=== PATIENT | female | born 1945 | race Caucasian/White ===

== ENCOUNTER → 2020-12-17 14:27 | Outpatient (BNVA) | payer MEDICARE, OTHER, SELFPAY | PROVIDERS: PCP Internal Medicine; Visit Provider Internal Medicine Cardiovascular Disease | DX: I42.2 Other hypertrophic cardiomyopathy (principal); I48.0 Paroxysmal atrial fibrillation; I25.10 Atherosclerotic heart disease of native coronary artery without angina pectoris; I35.0 Nonrheumatic aortic (valve) stenosis; I50.30 Unspecified diastolic (congestive) heart failure; Z95.0 Presence of cardiac pacemaker | CPT/HCPCS: 93005; 99212 ==

== ENCOUNTER → 2021-06-20 14:55 | Outpatient (BNVA) | payer MEDICARE, OTHER, SELFPAY | PROVIDERS: PCP Internal Medicine; Visit Provider Internal Medicine Cardiovascular Disease | DX: I50.30 Unspecified diastolic (congestive) heart failure (principal); I48.0 Paroxysmal atrial fibrillation; I35.0 Nonrheumatic aortic (valve) stenosis; I25.10 Atherosclerotic heart disease of native coronary artery without angina pectoris; R60.0 Localized edema; R06.02 Shortness of breath; R53.83 Other fatigue; Z98.890 Other specified postprocedural states; Z95.0 Presence of cardiac pacemaker; J30.2 Other seasonal allergic rhinitis; Z91.040 Latex allergy status; Z79.899 Other long term (current) drug therapy | CPT/HCPCS: 93005; 99212 ==

== ENCOUNTER 2021-06-20 15:55 | Inpatient (IN) | payer MEDICARE, OTHER, SELFPAY ==
--- NOTE | ~2021-06-20 | XR_ITS ---
EXAMINATION: XR CHEST CLINICAL INFORMATION: Shortness of breath COMPARISON: 05/31/2020 TECHNIQUE: 2 views of the chest were obtained. FINDINGS: There is small effusions now present bilaterally right greater than left. Mild basilar atelectasis. No large area of infiltrate. Pacer wires appear unchanged in position. There is no failure on this study Enlarged cardiac silhouette similar to previous. XR/XR chest 2V IMPRESSION: Small bilateral effusions with mild adjacent atelectasis. No large area of infiltrate. No failure at this time
[2021-06-20 16:16] VITALS: BP 136/76; PULSE 77; RESP 16; TEMP 36.8; O2SAT 95; BMI 33.4
--- NOTE | 2021-06-20 16:54 | ECG_ITS ---
Test Reason : SHORTNESS OF BREATH Blood Pressure : / mmHG Vent. Rate : 075 BPM Atrial Rate : 075 BPM P-R Int : 170 ms QRS Dur : 218 ms QT Int : 562 ms P-R-T Axes : 000 152 108 degrees QTc Int : 627 ms AV dual-paced rhythm Abnormal ECG When compared with ECG of 13-JUL-2019 15:00, No significant changes seen Referred By: David Loredo Electronically Signed By:CORONA HERRERA
--- NOTE | 2021-06-20 17:02 | ED_ITS ---
HPI - SOB/Dyspnea General Chief Complaint: Dyspnea Stated Complaint: FLUIDS Time Seen by Provider: 06/20/21 16:22 Source: patient and other (Expect note from Dr. Stuart) Mode of arrival: ambulatory Limitations: no limitations History of Present Illness HPI Narrative: 75-year-old female who was sent to the emergency department by her bandoleer straightener stamper, Dr. Stuart for evaluation fluid overload with severe peripheral edema and possible CHF the patient has a history of hypertrophic cardiomyopathy who saw her bandoleer straightener stamper today for routine visit. The patient complains of worsening shortness of breath over several months, getting worse over the past week. She has noticed increased peripheral edema to the point where her legs are large and she is having difficulty walking secondary to her swollen legs and the pain in her knees. She denied chest pain. She denied fever, chills, nausea, vomiting, abdominal pain. Patient has been drinking 316 oz glasses of water per day. The patient has been vaccinated against COVID-19 and received her 2nd shot in December of 2020. Related Data Home Medications Medication Instructions Recorded Confirmed albuterol sulfate 90 mcg/actuation 2 puff PO Q4H PRN 12/17/20 06/20/21 aerosol inhaler furosemide 40 mg tablet 40 mg PO DAILY 12/17/20 06/20/21 montelukast 10 mg tablet 10 mg PO DAILY 12/17/20 06/20/21 rivaroxaban 20 mg tablet 20 mg PO DAILY 12/17/20 06/20/21 Previous Rx's Medication Instructions Recorded amiodarone 200 mg tablet 200 mg PO DAILY #90 tab 01/31/21 verapamil 80 mg tablet 160 mg PO BID #360 tab 03/25/21 Allergies Allergy/AdvReac Type Severity Reaction Status Date / Time latex [LATEX] Allergy Unknown UNKNOWN Unverified 07/26/20 16:41 N.K.D.A. Allergy Unknown Uncoded 05/31/20 00:00 seasonal Allergy Unknown Uncoded 05/31/20 00:00 Review of Systems Review of Systems: Yes all other systems are reviewed and are negative [facility] Past Medical History [facility] Narrative: Social history: The patient states that she is a former smoker and quit 20 years prior. She smoked for at least 40 years. She states she drinks alcohol once or twice a week. She denies drug use. Medical History (HFpEF) heart failure with preserved ejection fraction Aortic stenosis CAD (coronary artery disease) Cardiac pacemaker in situ Hypertrophic cardiomyopathy Obesity Paroxysmal atrial fibrillation Pulmonary hypertension Surgical History History of cardiac radiofrequency ablation History of cardioversion History of permanent cardiac pacemaker placement Hx of elbow surgery Family History Family History Father No problems noted. Mother CVD (cardiovascular disease) Social History Social History Household Members: Children Household Members Other:: lives with son Housing: House Do you presently have visiting nurse or other home services: No Patient Tobacco Use Status: Former Tobacco user Smoked in Last 30 Days: No Patient Interested in Nicotine Replacement: No Patient Given Instructions on How to Stop Smoking: No Second Hand Smoke Exposure: No Use of substances other than those prescribed or required for medical reasons: No Currently Displaying Signs/Symptoms of Drug Intoxication Withdrawal: No Any prior treatment program specific to substance use: No Have you been hit, kicked, punched, or otherwise hurt by someone within the past year? If so, by whom?: No Do you feel safe in your current relationship?: No Current Relationship Is there a partner from a previous relationship who is making you feel unsafe now?: No Are you made to feel afraid or neglected: No Advance Directives: No Advance Directives Information Provided: No Advance Directives on File: No Do you have thoughts of harming others: None Do you have a plan to hurt others: No Plan Recently lost weight without trying: No Eating poorly because of decreased appetite: No Nutrition Risks: No Nutritional Risk Patient : No : No Poor oral hygiene: No service: No Current occupational status: employed Physical Exam Vital Signs: Vital Signs: Last Vital Signs Temp 98.3 F 06/21/21 00:00 Pulse 88 06/21/21 00:00 Resp 16 06/21/21 00:00 BP 139/74 06/21/21 00:00 Pulse Ox 94 06/21/21 00:00 Body Mass Index 33.4 Const: Other: Very pleasant and cooperative female, does not appear to be in distress, answers all questions appropriately. HENMT: Head: Yes normal to inspection, Yes normocephalic and Yes atraumatic Ears: external ears normal General nose exam: Normal external nose present Face and sinus: Yes normal facial exam Mouth: Normal oral and palatal mucosa present Throat: Yes posterior oropharynx normal Eyes: General: appearance normal, both eyes and all related structures Pupils: Equal, round and reactive pupils present Neck: Neck: Yes normal visual inspection, Yes no lymphadenopathy, Yes trachea midline and Yes supple Chest: Chest palpation & inspection: normal inspection of the chest and normal palpation of entire chest wall Resp: Effort & Inspection: normal respiratory effort and able to speak in complete sentences Auscultation: rales bilateral at the base Cardio: Rate: regular rate Rhythm: regular rhythm Heart sounds: S1 normal heart sound present, S2 normal heart sound present and Murmur heart sound present (Two murmurs noted: Both holosystolic, 2/6 right sternal border, 3/6 left s) GI: Inspection: Yes normal to inspection Palpation (GI): Soft to palpation, nontender and no guarding Auscultation: normal bowel sounds : General: Yes no CVA tenderness Back/Spine/Pelvis: Back: no CVA tenderness Skin: General skin exam: no rashes or lesions noted Neuro: Cranial nerves: Yes CN's II-XII intact bilaterally and Yes Equal, round and reactive pupils present Cognition (Neuro): normal cognition Motor exam (neuro): 5/5 motor strength present throughout Extrem: Other: Both legs are markedly edematous approximately 2-3 times normal, 2+ pitting edema, bilaterally symmetric, slight erythema to both pretibial areas, no increased warmth Psych: Appearance: grossly normal Speech and movement: Normal speech and movement present Affect: normal affect Attitude: cooperative Thought process: Normal thought process present Thought content: Normal thought content present Course Course Course Narrative: 75-year-old female with history of hypertrophic cardiomyopathy who had a routine cardiology appointment today and was referred to the emergency department by her bandoleer straightener stamper for fluid overload and possible CHF. Physical examination revealed 2 separate cardiac murmurs 1 consistent with her hypertrophic cardiomyopathy, rales at the bases on her lung exam and markedly swollen lower extremities with 2+ pitting edema. I did order laboratory evaluation, chest x-ray an EKG. Patient was ordered to get Lasix (furosemide) 60 mg IV. MDM - SOB/Dyspnea Lab Data Result diagrams: 06/20/21 17:14 06/20/21 17:14 Labs: Lab Results 06/20/21 06/20/21 06/20/21 Range/Units 17:14 17:14 17:14 WBC 6.7 (4.8-10.8) X10*3/uL RBC 4.00 L (4.20-5.50) X10*6/uL Hgb 10.3 L (12.0-16.0) g/dl Hct 34.4 L (37-47) % MCV 86.0 (80-98) fL MCH 25.8 L (27.0-33.0) pg MCHC 29.9 L (31.0-35.0) g/dl RDW 16.7 H (11.0-16.0) % Plt Count 289 (160-400) X10*3/uL MPV 9.1 L (9.4-12.3) fL Immature Gran % (Auto) 0.3 (0.0-0.4) % Neut % (Auto) 83.7 H (45-73) % Lymph % (Auto) 7.0 L (20-40) % [place] % (Auto) 8.3 (2-11) % Eos % (Auto) 0.1 (0-4) % Baso % (Auto) 0.6 (0-2) % Lymph # (Auto) 0.5 L (1.2-4.9) X10*3/uL [place] # (Auto) 0.6 (0.1-1.2) X10*3/uL Eos # (Auto) 0.0 (0.0-0.4) X10*3/uL Baso # (Auto) 0.0 (0.0-0.2) X10*3/uL Abs Immat Gran (auto) 0.02 (0.00-0.03) X10*3/uL Absolute Neuts (auto) 5.6 (2.0-8.3) X10*3/uL Absolute Nucleated RBC 0.000 (0.0-0.012) X10*3/uL Nucleated RBC % (auto) 0.0 (0.0-0.2) /100WBC PT 20.3 H (9.9-13.0) SEC INR 1.8 H (0.9-1.1) APTT 41.4 H (24.1-38.0) SEC Sodium (135-145) mmol/L Potassium (3.3-5.1) mmol/L Chloride (96-108) mmol/L Carbon Dioxide (22-29) mmol/L Anion Gap (12-20) BUN (9-16) mg/dL Creatinine (0.5-1.4) mg/dL Estim Creat Clear Calc Estimated GFR Random Glucose (60-115) mg/dL Calcium (8.4-10.2) mg/dL Total Bilirubin (0.0-1.0) mg/dL AST (5-31) U/L ALT (0-31) U/L Alkaline Phosphatase (39-117) U/L Troponin I High Sens (<3.5-17.0) ng/L B-Natriuretic Peptide 877 H (<100) pg/mL Total Protein (6.5-8.0) g/dL Albumin (3.5-5.0) g/dL Lipase (8-78) U/L Coronavirus (PCR) (Negative) Influenza Type A (PCR) (Negative) Influenza Type B (PCR) (Negative) RSV RNA Qual (PCR) (Negative) 06/20/21 06/20/21 06/20/21 Range/Units 17:14 17:14 17:14 WBC (4.8-10.8) X10*3/uL RBC (4.20-5.50) X10*6/uL Hgb (12.0-16.0) g/dl Hct (37-47) % MCV (80-98) fL MCH (27.0-33.0) pg MCHC (31.0-35.0) g/dl RDW (11.0-16.0) % Plt Count (160-400) X10*3/uL MPV (9.4-12.3) fL Immature Gran % (Auto) (0.0-0.4) % Neut % (Auto) (45-73) % Lymph % (Auto) (20-40) % [place] % (Auto) (2-11) % Eos % (Auto) (0-4) % Baso % (Auto) (0-2) % Lymph # (Auto) (1.2-4.9) X10*3/uL [place] # (Auto) (0.1-1.2) X10*3/uL Eos # (Auto) (0.0-0.4) X10*3/uL Baso # (Auto) (0.0-0.2) X10*3/uL Abs Immat Gran (auto) (0.00-0.03) X10*3/uL Absolute Neuts (auto) (2.0-8.3) X10*3/uL Absolute Nucleated RBC (0.0-0.012) X10*3/uL Nucleated RBC % (auto) (0.0-0.2) /100WBC PT (9.9-13.0) SEC INR (0.9-1.1) APTT (24.1-38.0) SEC Sodium 140 (135-145) mmol/L Potassium 4.5 (3.3-5.1) mmol/L Chloride 108 (96-108) mmol/L Carbon Dioxide 20 L (22-29) mmol/L Anion Gap 17 (12-20) BUN 11 (9-16) mg/dL Creatinine 0.95 (0.5-1.4) mg/dL Estim Creat Clear Calc 63.2 Estimated GFR 57 Random Glucose 100 (60-115) mg/dL Calcium 8.8 (8.4-10.2) mg/dL Total Bilirubin 1.6 H (0.0-1.0) mg/dL AST 14 (5-31) U/L ALT 10 (0-31) U/L Alkaline Phosphatase 149 H (39-117) U/L Troponin I High Sens 11.7 (<3.5-17.0) ng/L B-Natriuretic Peptide (<100) pg/mL Total Protein 6.9 (6.5-8.0) g/dL Albumin 3.9 (3.5-5.0) g/dL Lipase 15 (8-78) U/L Coronavirus (PCR) NEGATIVE (Negative) Influenza Type A (PCR) NEGATIVE (Negative) Influenza Type B (PCR) NEGATIVE (Negative) RSV RNA Qual (PCR) NEGATIVE (Negative) Discharge Plan Discharge Clinical Impression: Congestive heart failure, Edema, peripheral Patient Disposition: Admitted As Inpatient Interventions: Admission Worksheet (ED) Last Done: 06/21/21 00:31
[2021-06-20 17:16] VITALS: BP 132/75; PULSE 71; RESP 16; O2SAT 94
[2021-06-20] MEDS: Furosemide 100 MG/10 ML VIAL 60 MG IVPUSH (17:22)
[2021-06-20 17:23] LABS: MANUAL DIFF FLAG NO
[2021-06-20 17:29] LABS: Basophils Percent Auto 0.6 % (0-2); Eosinophils Percent Auto 0.1 % (0-4); Hematocrit 34.4 % (37-47); Hemoglobin 10.3 g/dl (12.0-16.0); Imm Gran Abs Auto 0.02 X10*3/uL (0.00-0.03); Imm Gran Pct Auto 0.3 % (0.0-0.4); Lymphocytes Absolute Auto 0.5 X10*3/uL (1.2-4.9); Mean Corpuscular HGB Conc 29.9 g/dl (31.0-35.0); Mean Corpuscular Hemoglobin 25.8 pg (27.0-33.0); Mean Platelet Volume 9.1 fL (9.4-12.3); Monocytes Absolute Auto 0.6 X10*3/uL (0.1-1.2); Monocytes Percent Auto 8.3 % (2-11); Neutrophils Absolute Auto 5.6 X10*3/uL (2.0-8.3); Neutrophils Percent Auto 83.7 % (45-73); Platelet Count 289 X10*3/uL (160-400); Red Cell Distribution Width 16.7 % (11.0-16.0); White Blood Count 6.7 X10*3/uL (4.8-10.8)
[2021-06-20 17:31] LABS: INTERNATIONAL NORM RATIO 1.8 (0.9-1.1); Prothrombin Time 20.3 SEC (9.9-13.0)
[2021-06-20 17:33] LABS: Partial Thromboplastin Time 41.4 SEC (24.1-38.0)
[2021-06-20 17:51] LABS: B Type Natriuretic Peptide 877 pg/mL (<100)
[2021-06-20 17:52] LABS: Troponin-I High Sensitivity 11.7 ng/L (<3.5-17.0)
[2021-06-20 18:07] LABS: Alanine Aminotransferase 10 U/L (0-31); Albumin Level 3.9 g/dL (3.5-5.0); Alkaline Phosphatase 149 U/L (39-117); Anion Gap 17 (12-20); Aspartate Amino Transferase 14 U/L (5-31); Bilirubin Total 1.6 mg/dL (0.0-1.0); Blood Urea Nitrogen 11 mg/dL (9-16); Calcium 8.8 mg/dL (8.4-10.2); Carbon Dioxide 20 mmol/L (22-29); Chloride 108 mmol/L (96-108); Creatinine Clr Calc Pharmacy 63.2; Estimated Glomerular Filt Rate 57; Glucose Random 100 mg/dL (60-115); Lipase 15 U/L (8-78); Potassium 4.5 mmol/L (3.3-5.1); Sodium 140 mmol/L (135-145); Total Protein 6.9 g/dL (6.5-8.0)
[2021-06-20 18:13] LABS: Influenza A PCR NEGATIVE (Negative); Influenza B PCR NEGATIVE (Negative); Resp Syncy Virus RNA Qual PCR NEGATIVE (Negative); SARS COV2 PCR INHOUSE NEGATIVE (Negative)
[2021-06-20 18:48] VITALS: BP 123/59; PULSE 75; RESP 16; O2SAT 98
[2021-06-20 21:23] VITALS: BP 136/69; PULSE 71; RESP 22; TEMP 36.9; O2SAT 94
--- NOTE | 2021-06-20 21:27 | MHC.CM.PN ---
Addendum entered by Meg Gilliam 06/20/21 21:33: Pt is fully vaccinated with Pfizer. Original Note: CM met with admitted pt, with bed assignment pending. IMM reviewed and signed 06/20/21@2110. Pt is A&Ox3. Independent. 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 Pt lives with her son. Has a cane and a scooter. Pt does not have any services. HCP/son Michael Schulz ([phone]). HCP is not on file. Copy requested. D/C plan is home without services. Pt is agreeable to [facility] if needed. Transportation home by son. CM to follow for d/c needs.
--- NOTE | 2021-06-20 21:41 | PHA.MEDREC ---
Pharmacy Consult ? Medication Reconciliation Pharmacy has completed the medication reconciliation. PT reports taking her AM meds only on 06/20.
[2021-06-20 23:21] VITALS: BP 144/85; PULSE 84; RESP 26; O2SAT 94
--- NOTE | 2021-06-20 23:22 | PC.NURSE ---
PUREWICK REPLACED, LINEN CHANGED AND PT WASHED UP. SKIN INTACT.
[2021-06-21] VITALS (7 sets, daily range): BP systolic 123–169; BP diastolic 72–90; PULSE 72–88; RESP 16–20; TEMP 36.1–36.8; O2SAT 94–96; BMI 31.1
[2021-06-21] MEDS: 0.9 % Sodium Chloride Flush 3 ML SYRINGE IVFLUSH ×3 (01:03→17:19)
--- NOTE | 2021-06-21 06:40 | P.HPHOSP_ITS ---
History of Present Illness Date of Service: 06/20/21 Chief Complaint: Leg swelling This is a 75-year-old female with past medical history of CHF with preserved ejection fraction, aortic stenosis, hypertrophic cardiomyopathy, CAD, AFib, pulmonary hypertension, who presents to the hospital after being seen by her c ardiologist and sent for CHF exacerbation. Patient reports that she has had lower extremity swelling since December but have worsened in the past 1 week where she is now having even trouble walking due to the heaviness in her legs, reports dyspnea for the past few days, orthopnea, PND, no cough, no sputum production, no fever or chills. Denies any chest pain, on and off palpitations but nothing currently, denies any headache or blurry vision, no abdominal pain nausea or vomiting, no diarrhea constipation, no urinary symptoms and no numbness tingling. On arrival to the ED hemodynamically stable with no significant abnormal vitals Labs are significant for WBC count of 6.7, hemoglobin of 10.3 which did drop from 13 on 05/31, MCV of 86, PT of 20.3, INR of 1.8, PTT of 41.4, COVID-19 negative, BNP of 877, troponin of 11 which remained flat EKG shows AV dual paced rhythm, with mild atelectasis. No infiltrate Patient will be admitted for CHF exacerbation and management Review of Systems Review of Systems: Yes all other systems are reviewed and are negative [facility] Medical History (HFpEF) heart failure with preserved ejection fraction Aortic stenosis CAD (coronary artery disease) Cardiac pacemaker in situ Hypertrophic cardiomyopathy Obesity Paroxysmal atrial fibrillation Pulmonary hypertension Family History Father No problems noted. Mother CVD (cardiovascular disease) Surgical History History of cardiac radiofrequency ablation History of cardioversion History of permanent cardiac pacemaker placement Hx of elbow surgery Social History Household Members: Children Household Members Other:: lives with son Housing: House Do you presently have visiting nurse or other home services: No Patient Tobacco Use Status: Former Tobacco user Smoked in Last 30 Days: No Patient Interested in Nicotine Replacement: No Patient Given Instructions on How to Stop Smoking: No Second Hand Smoke Exposure: No Use of substances other than those prescribed or required for medical reasons: No Currently Displaying Signs/Symptoms of Drug Intoxication Withdrawal: No Any prior treatment program specific to substance use: No Have you been hit, kicked, punched, or otherwise hurt by someone within the past year? If so, by whom?: No Do you feel safe in your current relationship?: No Current Relationship Is there a partner from a previous relationship who is making you feel unsafe now?: No Are you made to feel afraid or neglected: No Advance Directives: No Advance Directives Information Provided: No Advance Directives on File: No Do you have thoughts of harming others: None Do you have a plan to hurt others: No Plan Recently lost weight without trying: No Eating poorly because of decreased appetite: No Nutrition Risks: No Nutritional Risk Patient : No : No Poor oral hygiene: No service: No Current occupational status: employed Meds Allergies Allergy/AdvReac Type Severity Reaction Status Date / Time latex [LATEX] Allergy Unknown UNKNOWN Unverified 07/26/20 16:41 N.K.D.A. Allergy Unknown Uncoded 05/31/20 00:00 seasonal Allergy Unknown Uncoded 05/31/20 00:00 Active Medications: Current Medications Generic Name Dose Route Start Last Admin Trade Name Freq PRN Reason Stop Dose Admin Acetaminophen 650 mg 06/20/21 23:51 Acetaminophen 325 Mg Tablet PO Q6H PRN Pain, Mild (Pain Scale 1-3) Docusate Sodium 100 mg 06/20/21 23:51 Docusate Sodium 100 Mg Capsule PO DAILY PRN Constipation Furosemide 40 mg 06/21/21 09:00 Furosemide 40 Mg/4 Ml Vial IVPUSH BID@0900,1800 [facility] Protocol Ondansetron HCl 4 mg 06/20/21 23:51 Ondansetron Hcl 4 Mg/2 Ml Vial IVPUSH Q8H PRN Nausea and Vomiting Pharmacy Consult 1 each 06/20/21 21:02 Consult Rx Perform Med Rec MISCELLANE ONCE PRN Consult order Sodium Chloride 3 ml 06/21/21 00:00 06/21/21 01:03 0.9 % Sodium Chloride Flush 3 Ml Syringe IVFLUSH 3 ml QSHIFT [facility] Administration Home Medications Medication Instructions Recorded Confirmed Last Taken Type albuterol sulfate 90 mcg/actuation 2 puff PO Q4H PRN 12/17/20 06/20/21 Unknown History aerosol inhaler furosemide 40 mg tablet 40 mg PO DAILY 12/17/20 06/20/21 06/20/21 History montelukast 10 mg tablet 10 mg PO DAILY 12/17/20 06/20/21 06/20/21 History rivaroxaban 20 mg tablet 20 mg PO DAILY 12/17/20 06/20/21 06/20/21 History Physical Exam Vital Signs and Narrative: Vital Signs: Last Vital Signs Temp 97.9 F 06/21/21 03:12 Pulse 73 06/21/21 03:12 Resp 16 06/21/21 03:12 BP 131/72 06/21/21 03:12 Pulse Ox 95 06/21/21 03:12 Body Mass Index 31.1 Const: General: cooperative and no acute distress Orientation/consciousness: patient oriented x3 Eyes: General: appearance normal, both eyes and all related structures Resp: Effort & Inspection: normal respiratory effort and able to speak in complete sentences Auscultation: crackles Cardio: Rate: regular rate Rhythm: regular rhythm GI: Palpation (GI): Soft to palpation Auscultation: normal bowel sounds Skin: General skin exam: no rashes or lesions noted Neuro: General: patient oriented x3 Cognition (Neuro): normal cognition Extrem: Other: 3+ pitting edema bilaterally General: Yes normal to inspection Results Labs CBC and Chem 7: 06/20/21 17:14 06/20/21 17:14 Labs: Laboratory Results - last 24 hr 06/20/21 06/20/21 06/20/21 17:14 17:14 17:14 MCV 86.0 MCH 25.8 L MCHC 29.9 L RDW 16.7 H Plt Count 289 MPV 9.1 L Immature Gran % (Auto) 0.3 Neut % (Auto) 83.7 H Lymph % (Auto) 7.0 L [place] % (Auto) 8.3 Eos % (Auto) 0.1 Baso % (Auto) 0.6 Lymph # (Auto) 0.5 L [place] # (Auto) 0.6 Eos # (Auto) 0.0 Baso # (Auto) 0.0 Abs Immat Gran (auto) 0.02 Absolute Neuts (auto) 5.6 Absolute Nucleated RBC 0.000 Nucleated RBC % (auto) 0.0 PT 20.3 H INR 1.8 H APTT 41.4 H Anion Gap Estim Creat Clear Calc Estimated GFR Random Glucose Calcium Total Bilirubin AST ALT Alkaline Phosphatase Troponin I High Sens B-Natriuretic Peptide 877 H Total Protein Albumin Lipase Coronavirus (PCR) Influenza Type A (PCR) Influenza Type B (PCR) RSV RNA Qual (PCR) 06/20/21 06/20/21 06/20/21 17:14 17:14 17:14 MCV MCH MCHC RDW Plt Count MPV Immature Gran % (Auto) Neut % (Auto) Lymph % (Auto) [place] % (Auto) Eos % (Auto) Baso % (Auto) Lymph # (Auto) [place] # (Auto) Eos # (Auto) Baso # (Auto) Abs Immat Gran (auto) Absolute Neuts (auto) Absolute Nucleated RBC Nucleated RBC % (auto) PT INR APTT Anion Gap 17 Estim Creat Clear Calc 63.2 Estimated GFR 57 Random Glucose 100 Calcium 8.8 Total Bilirubin 1.6 H AST 14 ALT 10 Alkaline Phosphatase 149 H Troponin I High Sens 11.7 B-Natriuretic Peptide Total Protein 6.9 Albumin 3.9 Lipase 15 Coronavirus (PCR) NEGATIVE Influenza Type A (PCR) NEGATIVE Influenza Type B (PCR) NEGATIVE RSV RNA Qual (PCR) NEGATIVE 06/20/21 21:08 MCV MCH MCHC RDW Plt Count MPV Immature Gran % (Auto) Neut % (Auto) Lymph % (Auto) [place] % (Auto) Eos % (Auto) Baso % (Auto) Lymph # (Auto) [place] # (Auto) Eos # (Auto) Baso # (Auto) Abs Immat Gran (auto) Absolute Neuts (auto) Absolute Nucleated RBC Nucleated RBC % (auto) PT INR APTT Anion Gap Estim Creat Clear Calc Estimated GFR Random Glucose Calcium Total Bilirubin AST ALT Alkaline Phosphatase Troponin I High Sens 10.0 B-Natriuretic Peptide Total Protein Albumin Lipase Coronavirus (PCR) Influenza Type A (PCR) Influenza Type B (PCR) RSV RNA Qual (PCR) ECG Interpretation: Dual paced AV rhythm Imaging Radiologist's Impressions: Impressions Chest X-Ray 06/20/21 16:53 IMPRESSION: Small bilateral effusions with mild adjacent atelectasis. No large area of infiltrate. No failure at this time Assessment and Plan (1) Acute exacerbation of congestive heart failure: Status: Acute 75-year-old female with past medical history of hypertrophic cardiomyopathy, , CHF with preserved ejection fraction, AFib who presents to the hospital with complaints of lower extremity swelling found to have CHF exacerbation # acute CHF exacerbation - patient has dyspnea, orthopnea, PND, lower extremity edema, elevated BNP as well as x-ray finding of pleural effusion - on 40 mg of Lasix daily at home - will switch her to 40 mg IV Lasix b.i.d. - echocardiogram, low-sodium diet, daily weight and strict I&O - cardiology consulted # AFib - rate controlled - continue amiodarone, and rivaroxaban as well as verapamil # - echocardiogram - evaluation management per Cardiology DVT prophylaxis: Heparin subQ Quality Stroke Does the patient have a stroke diagnosis?: No VTE Prior VTE?: No VTE Risk Level:: Medical - moderate - high VTE Device Contraindication: Treatment Not Indicated VTE Drug Contraindication: N/A - Med Ordered
[2021-06-21 07:44] LABS: Basophils Absolute Auto 0.1 X10*3/uL (0.0-0.2); Basophils Percent Auto 0.8 % (0-2); Eosinophils Percent Auto 0.3 % (0-4); Hematocrit 37.2 % (37-47); Hemoglobin 10.9 g/dl (12.0-16.0); Imm Gran Abs Auto 0.04 X10*3/uL (0.00-0.03); Imm Gran Pct Auto 0.7 % (0.0-0.4); Lymphocytes Absolute Auto 0.7 X10*3/uL (1.2-4.9); Lymphocytes Percent Auto 11.1 % (20-40); Mean Corpuscular HGB Conc 29.3 g/dl (31.0-35.0); Mean Corpuscular Volume 88.6 fL (80-98); Monocytes Absolute Auto 0.8 X10*3/uL (0.1-1.2); Monocytes Percent Auto 13.1 % (2-11); Neutrophils Absolute Auto 4.5 X10*3/uL (2.0-8.3); Red Cell Distribution Width 17.3 % (11.0-16.0); White Blood Count 6.1 X10*3/uL (4.8-10.8)
[2021-06-21] MEDS: Furosemide 40 MG/4 ML VIAL IVPUSH ×2 (08:51→17:19)
[2021-06-21 08:55] LABS: Anion Gap 18 (12-20); Blood Urea Nitrogen 13 mg/dL (9-16); Calcium 8.7 mg/dL (8.4-10.2); Carbon Dioxide 21 mmol/L (22-29); Chloride 107 mmol/L (96-108); Creatinine Clr Calc Pharmacy 52.6; Estimated Glomerular Filt Rate 48; Glucose Random 124 mg/dL (60-115); Potassium 4.5 mmol/L (3.3-5.1); Sodium 141 mmol/L (135-145)
--- NOTE | 2021-06-21 11:04 | PM.CNCAR ---
History of Present Illness History of Present Illness Date of Service: 06/21/21 Consult reason: congestive heart failure Chief complaint: CHF exacerbation Narrative: This is a patient of Dr. Stuart from our office. She was sent to the ER from office for congestive heart failure. She has a fairly complex medical history including hypertrophic cardiomyopathy, heart failure with preserved ejection fraction, paroxysmal atrial fibrillation, aortic stenosis and pulmonary hypertension. She has been having increasing swelling in her lower extremities for the last few weeks and possibly months. She states that normally, she could carry on most of her daily activities without any major limitations although activities like climbing stairs can be a problem. Her breathing is mostly okay except when she lies down been she may feel short of breath. Otherwise no anginal-type complaints. She has been admitted with that diagnosis of congestive heart failure for IV diuretics. Review of Systems Review of Systems: Yes all other systems are reviewed and are negative Cardiovascular: Cardiovascular: Reports as per HPI, Reports no additional cardiovascular complaints, Denies acrocyanosis, Denies cool extremities, Denies painful fingertips, Denies chest pain, Denies chest pain at rest, Denies diaphoresis, Denies syncope, Denies irregular heart rhythm, Denies claudication, Reports leg edema, Denies lightheadedness, Denies palpitations and Reports dyspnea Respiratory: Respiratory: Reports dyspnea Neurologic: Denies syncope Endocrine: Endocrine: Denies palpitations PMFSH Past Medical History Medical History (HFpEF) heart failure with preserved ejection fraction Aortic stenosis CAD (coronary artery disease) Cardiac pacemaker in situ Hypertrophic cardiomyopathy Obesity Paroxysmal atrial fibrillation Pulmonary hypertension Family History Family History Father No problems noted. Mother CVD (cardiovascular disease) Surgical History Surgical History History of cardiac radiofrequency ablation History of cardioversion History of permanent cardiac pacemaker placement Hx of elbow surgery Social History Social History Household Members: Children Household Members Other:: lives with son Housing: House Do you presently have visiting nurse or other home services: No Patient Tobacco Use Status: Former Tobacco user Smoked in Last 30 Days: No Patient Interested in Nicotine Replacement: No Patient Given Instructions on How to Stop Smoking: No Second Hand Smoke Exposure: No Use of substances other than those prescribed or required for medical reasons: No Currently Displaying Signs/Symptoms of Drug Intoxication Withdrawal: No Any prior treatment program specific to substance use: No Have you been hit, kicked, punched, or otherwise hurt by someone within the past year? If so, by whom?: No Do you feel safe in your current relationship?: No Current Relationship Is there a partner from a previous relationship who is making you feel unsafe now?: No Are you made to feel afraid or neglected: No Advance Directives: No Advance Directives Information Provided: No Advance Directives on File: No Do you have thoughts of harming others: None Do you have a plan to hurt others: No Plan Recently lost weight without trying: No Eating poorly because of decreased appetite: No Nutrition Risks: No Nutritional Risk Patient : No : No Poor oral hygiene: No service: No Current occupational status: employed Meds Allergies Allergy/AdvReac Type Severity Reaction Status Date / Time latex [LATEX] Allergy Unknown UNKNOWN Unverified 07/26/20 16:41 N.K.D.A. Allergy Unknown Uncoded 05/31/20 00:00 seasonal Allergy Unknown Uncoded 05/31/20 00:00 Active Medications: Current Medications Generic Name Dose Route Start Last Admin Trade Name Zelalemq PRN Reason Stop Dose Admin Acetaminophen 650 mg 06/20/21 23:51 Acetaminophen 325 Mg Tablet PO Q6H PRN Pain, Mild (Pain Scale 1-3) Albuterol Sulfate 2 puff 06/21/21 09:25 Albuterol Sulfate 90 Mcg 8 Gm Inhaler INHALE Q4H PRN Shortness Of Breath Amiodarone HCl 200 mg 06/22/21 09:00 Amiodarone Hcl 200 Mg Tablet PO DAILY TONI Docusate Sodium 100 mg 06/20/21 23:51 Docusate Sodium 100 Mg Capsule PO DAILY PRN Constipation Furosemide 40 mg 06/21/21 09:00 06/21/21 08:51 Furosemide 40 Mg/4 Ml Vial IVPUSH 40 mg BID@0900,1800 [facility] Administration Protocol Montelukast Sodium 10 mg 06/22/21 21:00 Montelukast Sodium 10 Mg Tablet PO BEDTIME [facility] Ondansetron HCl 4 mg 06/20/21 23:51 Ondansetron Hcl 4 Mg/2 Ml Vial IVPUSH Q8H PRN Nausea and Vomiting Pharmacy Consult 1 each 06/20/21 21:02 Consult Rx Perform Med Rec MISCELLANE ONCE PRN Consult order Rivaroxaban 20 mg 06/22/21 17:00 Rivaroxaban 20 Mg Tablet PO DAILY@1700 [facility] Sodium Chloride 3 ml 06/21/21 00:00 06/21/21 08:51 0.9 % Sodium Chloride Flush 3 Ml Syringe IVFLUSH 3 ml QSHIFT [facility] Administration Verapamil HCl 160 mg 06/21/21 21:00 Verapamil Hcl 80 Mg Tablet PO BID [facility] Protocol Home Medications Medication Instructions Recorded Confirmed Last Taken Type albuterol sulfate 90 mcg/actuation 2 puff PO Q4H PRN 12/17/20 06/20/21 Unknown History aerosol inhaler furosemide 40 mg tablet 40 mg PO DAILY 12/17/20 06/20/21 06/20/21 History montelukast 10 mg tablet 10 mg PO DAILY 12/17/20 06/20/21 06/20/21 History rivaroxaban 20 mg tablet 20 mg PO DAILY 12/17/20 06/20/21 06/20/21 History Physical Exam Vital Signs: Vital Signs: Last Vital Signs Temp 98 F 06/21/21 07:05 Pulse 72 06/21/21 07:05 Resp 20 06/21/21 07:05 BP 169/90 H 06/21/21 07:05 Pulse Ox 94 06/21/21 07:05 Body Mass Index 31.1 Const: General: cooperative and no acute distress HENMT: Other: Unremarkable Neck: Neck: Yes normal visual inspection Chest: Chest palpation & inspection: normal inspection of the chest Resp: Auscultation: clear to auscultation bilaterally, no crackles and no wheezes Cardio: Jugular venous distension: no JVD Palpation: normal PMI Heart sounds: S1 normal heart sound present, S2 abnormal (Soft), no gallops, Murmur heart sound present (3/6 systolic murmur heard all over the precordium.) and no rubs GI: Palpation (GI): Soft to palpation Back/Spine/Pelvis: Other: unremarkable Skin: General skin exam: no rashes or lesions noted Neuro: Cranial nerves: Yes Other cranial nerve findings present Extrem: General: Yes edema (Bilateral 2-3+) Psych: Mental Status: other Results Labs and Meds Result diagrams: 06/21/21 06:15 06/21/21 08:22 Lab results: Laboratory Results - last 24 hr 06/20/21 06/20/21 06/20/21 17:14 17:14 17:14 WBC 6.7 RBC 4.00 L Hgb 10.3 L Hct 34.4 L MCV 86.0 MCH 25.8 L MCHC 29.9 L RDW 16.7 H Plt Count 289 MPV 9.1 L Immature Gran % (Auto) 0.3 Neut % (Auto) 83.7 H Lymph % (Auto) 7.0 L [place] % (Auto) 8.3 Eos % (Auto) 0.1 Baso % (Auto) 0.6 Lymph # (Auto) 0.5 L [place] # (Auto) 0.6 Eos # (Auto) 0.0 Baso # (Auto) 0.0 Abs Immat Gran (auto) 0.02 Absolute Neuts (auto) 5.6 Absolute Nucleated RBC 0.000 Nucleated RBC % (auto) 0.0 PT 20.3 H INR 1.8 H APTT 41.4 H Sodium Potassium Chloride Carbon Dioxide Anion Gap BUN Creatinine Estim Creat Clear Calc Estimated GFR Random Glucose Calcium Total Bilirubin AST ALT Alkaline Phosphatase Troponin I High Sens B-Natriuretic Peptide 877 H Total Protein Albumin Lipase Coronavirus (PCR) Influenza Type A (PCR) Influenza Type B (PCR) RSV RNA Qual (PCR) 06/20/21 06/20/21 06/20/21 17:14 17:14 17:14 WBC RBC Hgb Hct MCV MCH MCHC RDW Plt Count MPV Immature Gran % (Auto) Neut % (Auto) Lymph % (Auto) [place] % (Auto) Eos % (Auto) Baso % (Auto) Lymph # (Auto) [place] # (Auto) Eos # (Auto) Baso # (Auto) Abs Immat Gran (auto) Absolute Neuts (auto) Absolute Nucleated RBC Nucleated RBC % (auto) PT INR APTT Sodium 140 Potassium 4.5 Chloride 108 Carbon Dioxide 20 L Anion Gap 17 BUN 11 Creatinine 0.95 Estim Creat Clear Calc 63.2 Estimated GFR 57 Random Glucose 100 Calcium 8.8 Total Bilirubin 1.6 H AST 14 ALT 10 Alkaline Phosphatase 149 H Troponin I High Sens 11.7 B-Natriuretic Peptide Total Protein 6.9 Albumin 3.9 Lipase 15 Coronavirus (PCR) NEGATIVE Influenza Type A (PCR) NEGATIVE Influenza Type B (PCR) NEGATIVE RSV RNA Qual (PCR) NEGATIVE 06/20/21 06/21/21 06/21/21 21:08 06:15 08:22 WBC 6.1 RBC 4.20 Hgb 10.9 L Hct 37.2 MCV 88.6 MCH 26.0 L MCHC 29.3 L RDW 17.3 H Plt Count TNP MPV Not Reportable Immature Gran % (Auto) 0.7 H Neut % (Auto) 74.0 H Lymph % (Auto) 11.1 L [place] % (Auto) 13.1 H Eos % (Auto) 0.3 Baso % (Auto) 0.8 Lymph # (Auto) 0.7 L [place] # (Auto) 0.8 Eos # (Auto) 0.0 Baso # (Auto) 0.1 Abs Immat Gran (auto) 0.04 H Absolute Neuts (auto) 4.5 Absolute Nucleated RBC 0.000 Nucleated RBC % (auto) 0.0 PT INR APTT Sodium 141 Potassium 4.5 Chloride 107 Carbon Dioxide 21 L Anion Gap 18 BUN 13 Creatinine 1.10 Estim Creat Clear Calc 52.6 Estimated GFR 48 Random Glucose 124 H Calcium 8.7 Total Bilirubin AST ALT Alkaline Phosphatase Troponin I High Sens 10.0 B-Natriuretic Peptide Total Protein Albumin Lipase Coronavirus (PCR) Influenza Type A (PCR) Influenza Type B (PCR) RSV RNA Qual (PCR) ECG Interpretation: EKG with AV dual paced rhythm. Imaging Radiologist's impression: Impressions Chest X-Ray 06/20/21 16:53 IMPRESSION: Small bilateral effusions with mild adjacent atelectasis. No large area of infiltrate. No failure at this time Assessment and Plan (1) Acute on chronic diastolic CHF (congestive heart failure), NYHA class 3: Status: Acute (2) Hypertrophic cardiomyopathy: Status: Acute (3) Paroxysmal atrial fibrillation: Status: Acute (4) Pulmonary hypertension: Status: Acute (5) Non-rheumatic aortic stenosis: Status: Acute Clinically, she clearly has volume overload. Labs reviewed. Hemoglobin is 10.9. Creatinine 1.1. BUN is 13. Potassium 4.5. High sensitive troponins in normal range. Cardiac BNP 877. In 2019, it was 269. COVID negative. Chest x-ray reported to have small bilateral effusions and mild adjacent atelectasis but no large infiltrates or failure. Echocardiogram from 2020 with LVEF of 55-60%; moderate diastolic dysfunction; severely dilated left atrium; moderate aortic stenosis and moderate to severe pulmonary hypertension. We will plan on repeating the echocardiogram to reassess the aortic stenosis. Otherwise, continue with IV diuretics. Not clear if the input/output is accurate but she is negative about 200 cc so far. Will follow with you. Procedures Date of Service Date of Service: 06/21/21
--- NOTE | 2021-06-21 16:50 | HO.PM.IMPN ---
Subjective Subjective Date of Service: 06/21/21 Interval History: Leg swelling, dyspnea, 3-pillow orthopnea; no chest pain Review of Systems Review of Systems: Yes all other systems are reviewed and are negative Physical Exam Vital Signs: Vital Signs: Last Vital Signs Temp 97.5 F 06/21/21 15:02 Pulse 80 06/21/21 15:02 Resp 20 06/21/21 15:02 BP 149/88 H 06/21/21 15:02 Pulse Ox 95 06/21/21 15:02 Body Mass Index 31.1 Gen: in no acute distress HEENT: sclera anicteric, moist mucus membranes Neck: supple Lungs: clear to auscultation bilaterally Heart: regular rate and rhythm, 3/6 murmur along LSB Abd: soft, non-tender, non-distended Ext: 3+ BLE edema Skin: warm/well-perfused Neuro: alert and oriented x3, no focal findings Psych: appropriate affect Objective Data Current Medications Generic Name Dose Route Start Last Admin Trade Name Freq PRN Reason Stop Dose Admin Acetaminophen 650 mg 06/20/21 23:51 Acetaminophen 325 Mg Tablet PO Q6H PRN Pain, Mild (Pain Scale 1-3) Albuterol Sulfate 2 puff 06/21/21 09:25 Albuterol Sulfate 90 Mcg 8 Gm Inhaler INHALE Q4H PRN Shortness Of Breath Amiodarone HCl 200 mg 06/22/21 09:00 Amiodarone Hcl 200 Mg Tablet PO DAILY [facility] Docusate Sodium 100 mg 06/20/21 23:51 Docusate Sodium 100 Mg Capsule PO DAILY PRN Constipation Furosemide 40 mg 06/21/21 09:00 06/21/21 08:51 Furosemide 40 Mg/4 Ml Vial IVPUSH 40 mg BID@0900,1800 [facility] Administration Protocol Montelukast Sodium 10 mg 06/22/21 21:00 Montelukast Sodium 10 Mg Tablet PO BEDTIME [facility] Ondansetron HCl 4 mg 06/20/21 23:51 Ondansetron Hcl 4 Mg/2 Ml Vial IVPUSH Q8H PRN Nausea and Vomiting Pharmacy Consult 1 each 06/20/21 21:02 Consult Rx Perform Med Rec MISCELLANE ONCE PRN Consult order Rivaroxaban 20 mg 06/22/21 17:00 Rivaroxaban 20 Mg Tablet PO DAILY@1700 [facility] Sodium Chloride 3 ml 06/21/21 00:00 06/21/21 08:51 0.9 % Sodium Chloride Flush 3 Ml Syringe IVFLUSH 3 ml QSHIFT TONI Administration Verapamil HCl 160 mg 06/21/21 21:00 Verapamil Hcl 80 Mg Tablet PO BID [facility] Protocol Labs CBC & Chem 7: 06/21/21 06:15 06/21/21 08:22 Labs: Laboratory Results - last 24 hr 06/20/21 06/20/21 06/20/21 17:14 17:14 17:14 MCV 86.0 MCH 25.8 L MCHC 29.9 L RDW 16.7 H Plt Count 289 MPV 9.1 L Immature Gran % (Auto) 0.3 Neut % (Auto) 83.7 H Lymph % (Auto) 7.0 L [place] % (Auto) 8.3 Eos % (Auto) 0.1 Baso % (Auto) 0.6 Lymph # (Auto) 0.5 L [place] # (Auto) 0.6 Eos # (Auto) 0.0 Baso # (Auto) 0.0 Abs Immat Gran (auto) 0.02 Absolute Neuts (auto) 5.6 Absolute Nucleated RBC 0.000 Nucleated RBC % (auto) 0.0 PT 20.3 H INR 1.8 H APTT 41.4 H Anion Gap Estim Creat Clear Calc Estimated GFR Random Glucose Calcium Total Bilirubin AST ALT Alkaline Phosphatase Troponin I High Sens B-Natriuretic Peptide 877 H Total Protein Albumin Lipase Coronavirus (PCR) Influenza Type A (PCR) Influenza Type B (PCR) RSV RNA Qual (PCR) 06/20/21 06/20/21 06/20/21 17:14 17:14 17:14 MCV MCH MCHC RDW Plt Count MPV Immature Gran % (Auto) Neut % (Auto) Lymph % (Auto) [place] % (Auto) Eos % (Auto) Baso % (Auto) Lymph # (Auto) [place] # (Auto) Eos # (Auto) Baso # (Auto) Abs Immat Gran (auto) Absolute Neuts (auto) Absolute Nucleated RBC Nucleated RBC % (auto) PT INR APTT Anion Gap 17 Estim Creat Clear Calc 63.2 Estimated GFR 57 Random Glucose 100 Calcium 8.8 Total Bilirubin 1.6 H AST 14 ALT 10 Alkaline Phosphatase 149 H Troponin I High Sens 11.7 B-Natriuretic Peptide Total Protein 6.9 Albumin 3.9 Lipase 15 Coronavirus (PCR) NEGATIVE Influenza Type A (PCR) NEGATIVE Influenza Type B (PCR) NEGATIVE RSV RNA Qual (PCR) NEGATIVE 06/20/21 06/21/21 06/21/21 21:08 06:15 08:22 MCV 88.6 MCH 26.0 L MCHC 29.3 L RDW 17.3 H Plt Count TNP MPV Not Reportable Immature Gran % (Auto) 0.7 H Neut % (Auto) 74.0 H Lymph % (Auto) 11.1 L [place] % (Auto) 13.1 H Eos % (Auto) 0.3 Baso % (Auto) 0.8 Lymph # (Auto) 0.7 L [place] # (Auto) 0.8 Eos # (Auto) 0.0 Baso # (Auto) 0.1 Abs Immat Gran (auto) 0.04 H Absolute Neuts (auto) 4.5 Absolute Nucleated RBC 0.000 Nucleated RBC % (auto) 0.0 PT INR APTT Anion Gap 18 Estim Creat Clear Calc 52.6 Estimated GFR 48 Random Glucose 124 H Calcium 8.7 Total Bilirubin AST ALT Alkaline Phosphatase Troponin I High Sens 10.0 B-Natriuretic Peptide Total Protein Albumin Lipase Coronavirus (PCR) Influenza Type A (PCR) Influenza Type B (PCR) RSV RNA Qual (PCR) TTE 06/21/21 - LVEF difficult to assess, but probably >50%. ? - Mildly increased right ventricular cavity size.? - Severe biatrial enlargement. ? - There is moderate aortic valve stenosis. ? - There is mild to moderate aortic valve regurgitation.? - There is moderate mitral valve regurgitation.? - There is moderate tricuspid valve regurgitation. ? - There is moderate dilatation of the ascending aorta measuring? 4.40 cm. ? - Moderate to severe pulmonary hypertension is present.? Assessment and Plan (1) Acute on chronic diastolic CHF (congestive heart failure), NYHA class 3: Status: Acute Assessment and Plan: hospital d#2 75yo F with hypertrophic cardiomyopathy, HFpEF, paroxysmal atrial fibrillation, aortic stenosis, and pulmonary hypertension admitted for CHF exacerbation # acute/chronic HFpEF exacerbation - continue IV furosemide, monitor I+O/BNP/BMP/Mg/weights; cardiology following # AF - continue amiodarone + verapamil + rivaorxban # VTE ppx - on rivaroxaban Quality Stroke Does the patient have a stroke diagnosis?: No VTE Prior VTE?: No VTE Risk Level:: Medical - moderate - high VTE Device Contraindication: Treatment Not Indicated VTE Drug Contraindication: N/A - Med Ordered
[2021-06-21] MEDS: VerapamiL HCL 80 MG TABLET 160 MG PO (20:40)
--- NOTE | 2021-06-21 23:51 | CA_ITS ---
Transthoracic Echocardiogram Patient (Last, First, Middle): Sophie Schulz E Gender: Female Date of : 1945 Age: 75 Procedure Date: 06/21/2021 Procedure Type: Transthoracic Echocardiogram Location: [facility] [place] Height: 172.72 cm Weight: 92.99 kg BSA: 2.07 m2 Heart Rate: bpm BP: 169 / 90 mmHg [employer] Principal: ENIO Referring MD: Jony Baker MD Symptoms: CHF Study Quality: Fair ECG Rhythm: Sinus Conclusions: - LVEF difficult to assess, but probably >50%. - Mildly increased right ventricular cavity size. - Severe biatrial enlargement. - There is moderate aortic valve stenosis. - There is mild to moderate aortic valve regurgitation. - There is moderate mitral valve regurgitation. - There is moderate tricuspid valve regurgitation. - There is moderate dilatation of the ascending aorta measuring 4.40 cm. - Moderate to severe pulmonary hypertension is present. Findings Left Ventricle There is mildly increased left ventricular wall thickness. There is paradoxical septal motion consistent with post-operative status and paradoxical septal motion consistent with a right ventricular pacemaker. E/E prime ratio is >15, consistent with elevated filling pressures. Evidence suggests grade II (moderate) diastolic dysfunction. Top normal left ventricular size. LVEF difficult to assess, but probably >50%. Right Ventricle Mildly increased right ventricular cavity size. There is a pacemaker wire seen in the right ventricle. TAPSE 1.98cm. Atria Severe biatrial enlargement. PFO noted by color doppler. Aortic Valve There is severe calcification of the aortic valve. There is moderate aortic valve stenosis. The peak aortic velocity is 3.22 m/s with a calculated peak gradient of 41 mmHg. The mean gradient is 25 mmHg. The aortic valve area is 1.13 cm2. There is mild to moderate aortic valve regurgitation. Mitral Valve There is severe posterior mitral annular calcification. There is moderate mitral valve regurgitation. There is no mitral valve stenosis. Pulmonic Valve There is mild pulmonic valve regurgitation. Tricuspid Valve There is moderate tricuspid valve regurgitation. The right ventricular systolic pressure is 66 mmHg. Moderate to severe pulmonary hypertension is present. Great Vessels The aortic arch is normal in size. There is moderate dilatation of the ascending aorta measuring 4.40 cm. Venous The inferior vena cava is severely dilated and does not collapse with inspiration. Pericardium/Pleural There is no evidence of pericardial effusion. Prior Study Comparison Changes noted compared to prior study dated: 05/25/2020. Ascending aortic dimension increased. Measurements 2D Linear Measurements IVSd: 1.19 0.6-0.9/0.6-1.0 cm LVIDd: 5.76 3.9-5.3/4.2-5.9 cm LVIDd Index: 2.78 2.4-3.2/2.2-3.1 cm/m2 LVIDs: 3.55 2.0-3.6 cm LVPWd: 1.26 0.7-1.1 cm Ao Root: 3.20 2.1-3.5 cm LA Diam: 5.20 2.7-3.8/3.0-4.0 cm LAIDs Index: 2.51 1.5-2.3 cm/m2 LV Mass: 376.78 67-162/88-224 g LV Mass Index: 182.02 43-95/49-115 g/m2 LVOT Diam: 2.00 3.0+(-)1.3 cm Mitral Valve MV Pk E: 1.53 MV PK A: 0.82 MV Decel Time: 243.00 E/A: 1.90 PHT: 71.00 MVA PHT: 3.[address] [place]: 6.28 Aortic Valve AoV Pk Yo: 3.22 AoV Mn Yo: 2.39 AoV VTI: 0.65 AoV Pk Grad: 41.00 Aov Mn Grad: 25.00 TYREL Cont.VTI: 1.13 AI Pk Oy: 4.[address] [place]: 2.19 LVOT LVOT Pk Yo: 1.15 LVOT Mn Yo: 0.78 LVOT VTI: 0.23 LVOT Pk Grad: 5.00 LVOT Mn Grad: 3.00 LVOT Diam: 2.00 LVOT Area: 3.14 Diastolic Function MV Pk E: 1.53 MV Pk A: 0.82 E/A: 1.90 Right Ventricle TAPSE (mm): 1.98 Tricuspid Valve TR Pk Yo: 3.58 TR Pk Grad: 51.00 RA Press: 15.00 RVSP: 66.00 Great Vessels Aorta Ao Root-2D: 3.20 2.0-3.7 cm Ao Asc: 4.40 2.1-3.4 cm Ao Arch: 3.00 Updated in Other Vendor System with Status of Final Aníbal Mendes MD electronically signed on 06/21/2021 3:52:47 PM with status of Final
[2021-06-22] VITALS (9 sets, daily range): BP systolic 126–157; BP diastolic 73–88; PULSE 70–86; RESP 16–18; TEMP 36.1–37.3; O2SAT 93–97; BMI 30.9
[2021-06-22] MEDS: Albuterol Sulfate 90 MCG 8 GM INHALER 2 PUFF INHALE (05:22)
[2021-06-22 06:43] LABS: B Type Natriuretic Peptide 817 pg/mL (<100)
[2021-06-22 06:57] LABS: Anion Gap 16 (12-20); Blood Urea Nitrogen 15 mg/dL (9-16); Calcium 8.5 mg/dL (8.4-10.2); Carbon Dioxide 25 mmol/L (22-29); Chloride 104 mmol/L (96-108); Creatinine Clr Calc Pharmacy 56.5; Estimated Glomerular Filt Rate 53; Glucose Random 107 mg/dL (60-115); Magnesium 2.1 mg/dL (1.6-2.6); Potassium 4.2 mmol/L (3.3-5.1); Sodium 141 mmol/L (135-145)
[2021-06-22] MEDS: VerapamiL HCL 80 MG TABLET 160 MG PO ×2 (08:56→19:58)
[2021-06-22] MEDS: Amiodarone HCL 200 MG TABLET PO (08:56)
[2021-06-22] MEDS: Furosemide 40 MG/4 ML VIAL IVPUSH ×2 (08:56→17:26)
[2021-06-22] MEDS: 0.9 % Sodium Chloride Flush 3 ML SYRINGE IVFLUSH ×3 (08:57→20:07)
[2021-06-22] MEDS: Rivaroxaban 20 MG TABLET PO (09:34)
--- NOTE | 2021-06-22 10:45 | P.PNCA_ITS ---
Subjective Subjective Date of Service: 06/22/21 Interval history: She states that she is feeling better; leg swelling is slightly better Review of Systems Review of Systems Yes all other systems are reviewed and are negative Cardiovascular: Reports as per HPI, Reports no additional cardiovascular comp laints, Denies acrocyanosis, Denies cool extremities, Denies painful fingertips, Denies chest pain, Denies chest pain at rest, Denies diaphoresis, Denies syncope, Denies irregular heart rhythm, Denies claudication, Reports leg edema, Denies lightheadedness, Denies palpitations and Reports dyspnea Respiratory: Reports dyspnea Denies syncope Endocrine: Denies palpitations Physical Exam Vital Signs: Last Vital Signs Temp 98.5 F 06/22/21 07:15 Pulse 71 06/22/21 08:56 Resp 18 06/22/21 07:15 BP 157/73 H 06/22/21 08:56 Pulse Ox 94 06/22/21 07:15 Body Mass Index 30.9 Const General: cooperative and no acute distress [facility] Other: Unremarkable Neck Neck: Yes normal visual inspection Chest Chest palpation & inspection: normal inspection of the chest Resp Auscultation: clear to auscultation bilaterally, no crackles and no wheezes Cardio Jugular venous distension: no JVD Palpation: normal PMI Heart sounds: S1 normal heart sound present, S2 abnormal (Soft), no gallops, Murmur heart sound present (3/6 systolic murmur heard all over the precordium.) and no rubs GI Palpation (GI): Soft to palpation Back/Spine/Pelvis Other: unremarkable Skin General skin exam: no rashes or lesions noted Neuro Cranial nerves: Yes Other cranial nerve findings present Extrem General: Yes edema (Bilateral 2-3+) Psych Mental Status: other Results Labs and Meds Result diagrams: 06/21/21 06:15 06/22/21 05:33 Lab results: Laboratory Results - last 24 hr 06/22/21 06/22/21 05:33 05:33 Sodium 141 Potassium 4.2 Chloride 104 Carbon Dioxide 25 Anion Gap 16 BUN 15 Creatinine 1.02 Estim Creat Clear Calc 56.5 Estimated GFR 53 Random Glucose 107 Calcium 8.5 Magnesium 2.1 B-Natriuretic Peptide 817 H Progress Note: A&P Assessment and plan (1) Acute on chronic diastolic CHF (congestive heart failure), NYHA class 3: Status: Acute (2) Hypertrophic cardiomyopathy: Status: Acute (3) Paroxysmal atrial fibrillation: Status: Acute (4) Pulmonary hypertension: Status: Acute (5) Non-rheumatic aortic stenosis: Status: Acute Assessment and Plan: Clinically, she clearly has volume overload. Labs reviewed. Hemoglobin is 10.9. Creatinine 1.1. BUN is 15. Potassium 4.2. High sensitive troponins in normal range. Cardiac BNP 817. In 2019, it was 269. COVID negative. Chest x- ray reported to have small bilateral effusions and mild adjacent atelectasis but no large infiltrates or failure. Echocardiogram- Conclusions: - LVEF difficult to assess, but probably >50%. ? - Mildly increased right ventricular cavity size.? - Severe biatrial enlargement. ? - There is moderate aortic valve stenosis. ? - There is mild to moderate aortic valve regurgitation.? - There is moderate mitral valve regurgitation.? - There is moderate tricuspid valve regurgitation. ? - There is moderate dilatation of the ascending aorta measuring? 4.40 cm. ? - Moderate to severe pulmonary hypertension is present.? Continue with IV diuretics. Not clear if the input/output is accurate, but she is negative about 600 cc so far. Will follow with you. Fall Risk Details Current Medications: Current Medications Generic Name Dose Route Start Last Admin Trade Name Freq PRN Reason Stop Dose Admin Acetaminophen 650 mg 06/20/21 23:51 Acetaminophen 325 Mg Tablet PO Q6H PRN Pain, Mild (Pain Scale 1-3) Albuterol Sulfate 2 puff 06/21/21 09:25 06/22/21 05:22 Albuterol Sulfate 90 Mcg 8 Gm Inhaler INHALE 2 puff Q4H PRN Administration Shortness Of Breath Amiodarone HCl 200 mg 06/22/21 09:00 06/22/21 08:56 Amiodarone Hcl 200 Mg Tablet PO 200 mg DAILY TONI Administration Docusate Sodium 100 mg 06/20/21 23:51 Docusate Sodium 100 Mg Capsule PO DAILY PRN Constipation Furosemide 40 mg 06/21/21 09:00 06/22/21 08:56 Furosemide 40 Mg/4 Ml Vial IVPUSH 40 mg BID@0900,1800 [facility] Administration Protocol Montelukast Sodium 10 mg 06/22/21 21:00 Montelukast Sodium 10 Mg Tablet PO BEDTIME TONI Ondansetron HCl 4 mg 06/20/21 23:51 Ondansetron Hcl 4 Mg/2 Ml Vial IVPUSH Q8H PRN Nausea and Vomiting Pharmacy Consult 1 each 06/20/21 21:02 Consult Rx Perform Med Rec MISCELLANE ONCE PRN Consult order Rivaroxaban 20 mg 06/22/21 09:15 06/22/21 09:34 Rivaroxaban 20 Mg Tablet PO 20 mg DAILY TONI Administration Sodium Chloride 3 ml 06/21/21 00:00 06/22/21 08:57 0.9 % Sodium Chloride Flush 3 Ml Syringe IVFLUSH 3 ml QSHIFT TONI Administration Verapamil HCl 160 mg 06/21/21 21:00 06/22/21 08:56 Verapamil Hcl 80 Mg Tablet PO 160 mg BID TONI Administration Protocol Time Spent With Patient Time: Total time spent is greater than 50% in coordination of care (as documented) at patient's floor/unit and/or counseling patient: Time with patient: less than 15 minutes Progress Note: Quality Stroke Does the patient have a stroke diagnosis?: No Procedures Date of Service Date of Service: 06/22/21
[2021-06-22] MEDS: Loratadine 10 MG TABLET PO (12:09)
--- NOTE | 2021-06-22 12:24 | HO.PM.IMPN ---
Subjective Subjective Date of Service: 06/22/21 Interval History: Legs still swollen + ongoing RODRIGUEZ/orthopnea No chest pain C/o sinus pressure, allergies Review of Systems Review of Systems: Yes all other systems are reviewed and are negative Physical Exam Vital Signs: Vital Signs: Last Vital Signs Temp 97.3 F 06/22/21 11:18 Pulse 74 06/22/21 11:18 Resp 18 06/22/21 11:18 BP 129/87 06/22/21 11:18 Pulse Ox 93 06/22/21 11:18 Body Mass Index 30.9 Gen: in no acute distress HEENT: sclera anicteric, moist mucus membranes Neck: supple Lungs: clear to auscultation bilaterally Heart: regular rate and rhythm, 3/6 murmur along LSB Abd: soft, non-tender, non-distended Ext: 2+ BLE edema with venous stasis hyperpigmentation Skin: warm/well-perfused Neuro: alert and oriented x3, no focal findings Psych: appropriate affect Objective Data Current Medications Generic Name Dose Route Start Last Admin Trade Name Hollie PRN Reason Stop Dose Admin Acetaminophen 650 mg 06/20/21 23:51 Acetaminophen 325 Mg Tablet PO Q6H PRN Pain, Mild (Pain Scale 1-3) Albuterol Sulfate 2 puff 06/21/21 09:25 06/22/21 05:22 Albuterol Sulfate 90 Mcg 8 Gm Inhaler INHALE 2 puff Q4H PRN Administration Shortness Of Breath Amiodarone HCl 200 mg 06/22/21 09:00 06/22/21 08:56 Amiodarone Hcl 200 Mg Tablet PO 200 mg DAILY TONI Administration Docusate Sodium 100 mg 06/20/21 23:51 Docusate Sodium 100 Mg Capsule PO DAILY PRN Constipation Furosemide 40 mg 06/21/21 09:00 06/22/21 08:56 Furosemide 40 Mg/4 Ml Vial IVPUSH 40 mg BID@0900,1800 TONI Administration Protocol Loratadine 10 mg 06/22/21 11:15 06/22/21 12:09 Loratadine 10 Mg Tablet PO 10 mg DAILY TONI Administration Montelukast Sodium 10 mg 06/22/21 21:00 Montelukast Sodium 10 Mg Tablet PO BEDTIME TONI Ondansetron HCl 4 mg 06/20/21 23:51 Ondansetron Hcl 4 Mg/2 Ml Vial IVPUSH Q8H PRN Nausea and Vomiting Pharmacy Consult 1 each 06/20/21 21:02 Consult Rx Perform Med Rec MISCELLANE ONCE PRN Consult order Rivaroxaban 20 mg 06/22/21 09:15 06/22/21 09:34 Rivaroxaban 20 Mg Tablet PO 20 mg DAILY TONI Administration Sodium Chloride 3 ml 06/21/21 00:00 06/22/21 08:57 0.9 % Sodium Chloride Flush 3 Ml Syringe IVFLUSH 3 ml QSHIFT TONI Administration Verapamil HCl 160 mg 06/21/21 21:00 06/22/21 08:56 Verapamil Hcl 80 Mg Tablet PO 160 mg BID TONI Administration Protocol Labs CBC & Chem 7: 06/21/21 06:15 06/22/21 05:33 Labs: Laboratory Results - last 24 hr 06/22/21 06/22/21 05:33 05:33 Anion Gap 16 Estim Creat Clear Calc 56.5 Estimated GFR 53 Random Glucose 107 Calcium 8.5 Magnesium 2.1 B-Natriuretic Peptide 817 H TTE 06/21/21 ?LVEF difficult to assess, but probably >50%. ? - Mildly increased right ventricular cavity size.? - Severe biatrial enlargement. ? - There is moderate aortic valve stenosis. ? - There is mild to moderate aortic valve regurgitation.? - There is moderate mitral valve regurgitation.? - There is moderate tricuspid valve regurgitation. ? - There is moderate dilatation of the ascending aorta measuring? 4.40 cm. ? - Moderate to severe pulmonary hypertension is present.? ?? Assessment and Plan (1) Acute on chronic diastolic CHF (congestive heart failure), NYHA class 3: Status: Acute Assessment and Plan: hospital d#3 75yo F with hypertrophic cardiomyopathy, HFpEF, paroxysmal atrial fibrillation, aortic stenosis, and pulmonary hypertension admitted for CHF exacerbation # acute/chronic HFpEF exacerbation - continue IV furosemide, monitor I+O/BNP/BMP/Mg/weights; cardiology following. Negative 600 mL so far. # AF - continue amiodarone + verapamil + rivaorxban # VTE ppx - on rivaroxaban Quality Stroke Does the patient have a stroke diagnosis?: No VTE Prior VTE?: No VTE Risk Level:: Medical - moderate - high VTE Device Contraindication: Treatment Not Indicated VTE Drug Contraindication: N/A - Med Ordered
[2021-06-22] MEDS: Montelukast Sodium 10 MG TABLET PO (19:58)
[2021-06-23] VITALS (9 sets, daily range): BP systolic 125–145; BP diastolic 69–89; PULSE 70–85; RESP 16–20; TEMP 36.1–36.8; O2SAT 90–97; BMI 30.4
[2021-06-23 06:12] LABS: B Type Natriuretic Peptide 735 pg/mL (<100)
[2021-06-23 06:14] LABS: Anion Gap 14 (12-20); Blood Urea Nitrogen 19 mg/dL (9-16); Calcium 8.6 mg/dL (8.4-10.2); Carbon Dioxide 30 mmol/L (22-29); Chloride 101 mmol/L (96-108); Creatinine Clr Calc Pharmacy 47.3; Estimated Glomerular Filt Rate 43; Glucose Random 119 mg/dL (60-115); Magnesium 2.1 mg/dL (1.6-2.6); Potassium 4.3 mmol/L (3.3-5.1); Sodium 141 mmol/L (135-145)
--- NOTE | 2021-06-23 09:27 | HO.PM.IMPN ---
Subjective Subjective Date of Service: 06/23/21 Review of Systems Gen: no fever Resp: no sob, no cough CV: no chest, no RODRIGUEZ, no leg edema GI: No n/v, no abd pain Neuro: No confusion Physical Exam Vital Signs: Vital Signs: Last Vital Signs Temp 98.1 F 06/23/21 07:30 Pulse 77 06/23/21 07:30 Resp 18 06/23/21 07:30 BP 145/83 H 06/23/21 07:30 Pulse Ox 93 06/23/21 07:30 30.4 Gen: in no acute distress HEENT: sclera anicteric, moist mucus membranes Neck: supple Lungs: clear to auscultation bilaterally Heart: regular rate and rhythm, 3/6 murmur along LSB Abd: soft, non-tender, non-distended Ext: 2+ BLE edema with venous stasis hyperpigmentation Skin: warm/well-perfused Neuro: alert and oriented x3, no focal findings Psych: appropriate affect ?Body Mass Index Objective Data Current Medications Generic Name Dose Route Start Last Admin Trade Name Hollie PRN Reason Stop Dose Admin Acetaminophen 650 mg 06/20/21 23:51 Acetaminophen 325 Mg Tablet PO Q6H PRN Pain, Mild (Pain Scale 1-3) Albuterol Sulfate 2 puff 06/21/21 09:25 06/22/21 05:22 Albuterol Sulfate 90 Mcg 8 Gm Inhaler INHALE 2 puff Q4H PRN Administration Shortness Of Breath Amiodarone HCl 200 mg 06/22/21 09:00 06/22/21 08:56 Amiodarone Hcl 200 Mg Tablet PO 200 mg DAILY TONI Administration Docusate Sodium 100 mg 06/20/21 23:51 Docusate Sodium 100 Mg Capsule PO DAILY PRN Constipation Furosemide 40 mg 06/21/21 09:00 06/22/21 17:26 Furosemide 40 Mg/4 Ml Vial IVPUSH 40 mg BID@0900,1800 TONI Administration Protocol Loratadine 10 mg 06/22/21 11:15 06/22/21 12:09 Loratadine 10 Mg Tablet PO 10 mg DAILY TONI Administration Montelukast Sodium 10 mg 06/22/21 21:00 06/22/21 19:58 Montelukast Sodium 10 Mg Tablet PO 10 mg BEDTIME TONI Administration Ondansetron HCl 4 mg 06/20/21 23:51 Ondansetron Hcl 4 Mg/2 Ml Vial IVPUSH Q8H PRN Nausea and Vomiting Pharmacy Consult 1 each 06/20/21 21:02 Consult Rx Perform Med Rec MISCELLANE ONCE PRN Consult order Rivaroxaban 20 mg 06/22/21 09:15 06/22/21 09:34 Rivaroxaban 20 Mg Tablet PO 20 mg DAILY TONI Administration Sodium Chloride 3 ml 06/21/21 00:00 06/22/21 20:07 0.9 % Sodium Chloride Flush 3 Ml Syringe IVFLUSH 3 ml QSHIFT TONI Administration Verapamil HCl 160 mg 06/21/21 21:00 06/22/21 19:58 Verapamil Hcl 80 Mg Tablet PO 160 mg BID TONI Administration Protocol Labs CBC & Chem 7: 06/21/21 06:15 06/23/21 05:11 Labs: Laboratory Results - last 24 hr 06/23/21 06/23/21 05:11 05:11 Anion Gap 14 Estim Creat Clear Calc 47.3 Estimated GFR 43 Random Glucose 119 H Calcium 8.6 Magnesium 2.1 B-Natriuretic Peptide 735 H Assessment and Plan (1) Acute on chronic diastolic CHF (congestive heart failure), NYHA class 3: Status: Acute Assessment and Plan: hospital d#4 75yo F with hypertrophic cardiomyopathy, HFpEF, paroxysmal atrial fibrillation, aortic stenosis, and pulmonary hypertension admitted for CHF exacerbation # acute/chronic HFpEF exacerbation - continue IV furosemide, monitor I+O/BNP/BMP/Mg/weights; cardiology following. Negative 3860 mL so far. BNP is trending diown, Cre is trending down. Change to PO lasix, repeat BMP in the morning. # AF - continue amiodarone + verapamil + rivaorxban # VTE ppx - on rivaroxaban Quality Stroke Does the patient have a stroke diagnosis?: No VTE Prior VTE?: No VTE Risk Level:: Medical - moderate - high VTE Device Contraindication: Treatment Not Indicated VTE Drug Contraindication: N/A - Med Ordered
[2021-06-23] MEDS: 0.9 % Sodium Chloride Flush 3 ML SYRINGE IVFLUSH (10:45)
[2021-06-23] MEDS: Amiodarone HCL 200 MG TABLET PO (10:45)
[2021-06-23] MEDS: VerapamiL HCL 80 MG TABLET 160 MG PO ×2 (10:48→20:43)
[2021-06-23] MEDS: Loratadine 10 MG TABLET PO (10:48)
[2021-06-23] MEDS: Rivaroxaban 20 MG TABLET PO (10:48)
--- NOTE | 2021-06-23 12:38 | P.PNCA_ITS ---
Subjective Subjective Date of Service: 06/23/21 Interval history: Feels slightly better. Review of Systems Review of Systems Yes all other systems are reviewed and are negative Cardiovascular: Reports as per HPI, Reports no additional cardiovascular complaints, Denies acrocyanosis, Denies cool extremities, Denies painful fingertips, Denies chest pain, Denies chest pain at rest, Denies diaphoresis, D enies syncope, Denies irregular heart rhythm, Denies claudication, Reports leg edema, Denies lightheadedness, Denies palpitations and Reports dyspnea Respiratory: Reports dyspnea Denies syncope Endocrine: Denies palpitations Physical Exam Vital Signs: Last Vital Signs Temp 97.6 F 06/23/21 11:15 Pulse 78 06/23/21 11:15 Resp 18 06/23/21 11:15 BP 139/80 06/23/21 11:15 Pulse Ox 93 06/23/21 11:15 Body Mass Index 30.4 Const General: cooperative and no acute distress [facility] Other: Unremarkable Neck Neck: Yes normal visual inspection Chest Chest palpation & inspection: normal inspection of the chest Resp Auscultation: clear to auscultation bilaterally, no crackles and no wheezes Cardio Jugular venous distension: no JVD Palpation: normal PMI Heart sounds: S1 normal heart sound present, S2 abnormal (Soft), no gallops, Murmur heart sound present (3/6 systolic murmur heard all over the precordium.) and no rubs GI Palpation (GI): Soft to palpation Back/Spine/Pelvis Other: unremarkable Skin General skin exam: no rashes or lesions noted Neuro Cranial nerves: Yes Other cranial nerve findings present Extrem General: Yes edema (Bilateral 2-3+) Psych Mental Status: other Results Labs and Meds Result diagrams: 06/21/21 06:15 06/23/21 05:11 Lab results: Laboratory Results - last 24 hr 06/23/21 06/23/21 05:11 05:11 Sodium 141 Potassium 4.3 Chloride 101 Carbon Dioxide 30 H Anion Gap 14 BUN 19 H Creatinine 1.21 Estim Creat Clear Calc 47.3 Estimated GFR 43 Random Glucose 119 H Calcium 8.6 Magnesium 2.1 B-Natriuretic Peptide 735 H Progress Note: A&P Assessment and plan (1) Acute on chronic diastolic CHF (congestive heart failure), NYHA class 3: Status: Acute (2) Hypertrophic cardiomyopathy: Status: Acute (3) Paroxysmal atrial fibrillation: Status: Acute (4) Pulmonary hypertension: Status: Acute (5) Non-rheumatic aortic stenosis: Status: Acute Assessment and Plan: Improving volume overload. So far, she is -3,8 L based on input-output charting. Continue with IV diuretics. Most recent creatinine is 1.21 and BUN i s 19. Potassium 4.3. Sodium 141. Cardiac BNP 735. High sensitive troponins in normal range. Chest x-ray reported to have small bilateral effusions and mild adjacent atelectasis but no large infiltrates or failure. Echocardiogram- Conclusions: - LVEF difficult to assess, but probably >50%. ? - Mildly increased right ventricular cavity size.? - Severe biatrial enlargement. ? - There is moderate aortic valve stenosis. ? - There is mild to moderate aortic valve regurgitation.? - There is moderate mitral valve regurgitation.? - There is moderate tricuspid valve regurgitation. ? - There is moderate dilatation of the ascending aorta measuring? 4.40 cm. ? - Moderate to severe pulmonary hypertension is present.? Continue IV diuretics for another day. Will follow. Fall Risk Details Current Medications: Current Medications Generic Name Dose Route Start Last Admin Trade Name Freq PRN Reason Stop Dose Admin Acetaminophen 650 mg 06/20/21 23:51 Acetaminophen 325 Mg Tablet PO Q6H PRN Pain, Mild (Pain Scale 1-3) Albuterol Sulfate 2 puff 06/21/21 09:25 06/22/21 05:22 Albuterol Sulfate 90 Mcg 8 Gm Inhaler INHALE 2 puff Q4H PRN Administration Shortness Of Breath Amiodarone HCl 200 mg 06/22/21 09:00 06/23/21 10:45 Amiodarone Hcl 200 Mg Tablet PO 200 mg DAILY TONI Administration Docusate Sodium 100 mg 06/20/21 23:51 Docusate Sodium 100 Mg Capsule PO DAILY PRN Constipation Furosemide 40 mg 06/24/21 09:00 Furosemide 40 Mg Tablet PO DAILY TONI Protocol Loratadine 10 mg 06/22/21 11:15 06/23/21 10:48 Loratadine 10 Mg Tablet PO 10 mg DAILY TONI Administration Montelukast Sodium 10 mg 06/22/21 21:00 06/22/21 19:58 Montelukast Sodium 10 Mg Tablet PO 10 mg BEDTIME TONI Administration Ondansetron HCl 4 mg 06/20/21 23:51 Ondansetron Hcl 4 Mg/2 Ml Vial IVPUSH Q8H PRN Nausea and Vomiting Pharmacy Consult 1 each 06/20/21 21:02 Consult Rx Perform Med Rec MISCELLANE ONCE PRN Consult order Rivaroxaban 20 mg 06/22/21 09:15 06/23/21 10:48 Rivaroxaban 20 Mg Tablet PO 20 mg DAILY TONI Administration Sodium Chloride 3 ml 06/21/21 00:00 06/23/21 10:45 0.9 % Sodium Chloride Flush 3 Ml Syringe IVFLUSH 3 ml QSHIFT TONI Administration Verapamil HCl 160 mg 06/21/21 21:00 06/23/21 10:48 Verapamil Hcl 80 Mg Tablet PO 160 mg BID TONI Administration Protocol Time Spent With Patient Time: Total time spent is greater than 50% in coordination of care (as documented) at patient's floor/unit and/or counseling patient: Time with patient: less than 15 minutes Progress Note: Quality Stroke Does the patient have a stroke diagnosis?: No Procedures Date of Service Date of Service: 06/23/21
[2021-06-23] MEDS: Montelukast Sodium 10 MG TABLET PO (20:44)
[2021-06-23] MEDS: Acetaminophen 325 MG TABLET 650 MG PO (20:48)
[2021-06-24] VITALS (9 sets, daily range): BP systolic 110–160; BP diastolic 69–86; PULSE 69–78; RESP 18–20; TEMP 35.8–36.8; O2SAT 93–96; BMI 29.6
[2021-06-24 07:05] LABS: Anion Gap 14 (12-20); Blood Urea Nitrogen 17 mg/dL (9-16); Carbon Dioxide 26 mmol/L (22-29); Chloride 106 mmol/L (96-108); Creatinine Clr Calc Pharmacy 63.5; Estimated Glomerular Filt Rate > 60; Glucose Random 100 mg/dL (60-115); Potassium 4.1 mmol/L (3.3-5.1); Sodium 142 mmol/L (135-145)
[2021-06-24] MEDS: 0.9 % Sodium Chloride Flush 3 ML SYRINGE IVFLUSH ×3 (09:34→19:44)
[2021-06-24] MEDS: Acetaminophen 325 MG TABLET 650 MG PO ×3 (09:34→23:47)
[2021-06-24] MEDS: Rivaroxaban 20 MG TABLET PO (09:34)
[2021-06-24] MEDS: VerapamiL HCL 80 MG TABLET 160 MG PO ×2 (09:34→19:44)
[2021-06-24] MEDS: Furosemide 40 MG TABLET PO (09:35)
[2021-06-24] MEDS: Loratadine 10 MG TABLET PO (09:35)
[2021-06-24] MEDS: Amiodarone HCL 200 MG TABLET PO (09:35)
--- NOTE | 2021-06-24 09:53 | PM.PNCARD ---
Subjective Subjective Date of Service: 06/24/21 Interval history: Feeling better. Less short of breath. Review of Systems Review of Systems Yes all other systems are reviewed and are negative Cardiovascular: Reports as per HPI, Reports no additional cardiovascular complaints, Denies acrocyanosis, Denies cool extremities, Denies painful fingertips, Denies chest pain, Denies chest pain at rest, Denies diaphoresis, Denies syncope, Denies irregular heart rhythm, Denies claudication, Reports leg edema, Denies lightheadedness, Denies palpitations and Reports dyspnea Respiratory: Reports dyspnea Denies syncope Endocrine: Denies palpitations Physical Exam Vital Signs: Last Vital Signs Temp 97 F 06/24/21 07:00 Pulse 69 06/24/21 09:35 Resp 20 06/24/21 07:00 BP 160/86 H 06/24/21 09:35 Pulse Ox 96 06/24/21 07:00 Body Mass Index 29.6 Const General: cooperative and no acute distress [facility] Other: Unremarkable Neck Neck: Yes normal visual inspection Chest Chest palpation & inspection: normal inspection of the chest Resp Auscultation: clear to auscultation bilaterally, no crackles and no wheezes Cardio Jugular venous distension: no JVD Palpation: normal PMI Heart sounds: S1 normal heart sound present, S2 abnormal (Soft), no gallops, Murmur heart sound present (3/6 systolic murmur heard all over the precordium.) and no rubs GI Palpation (GI): Soft to palpation Back/Spine/Pelvis Other: unremarkable Skin General skin exam: no rashes or lesions noted Neuro Cranial nerves: Yes Other cranial nerve findings present Extrem General: Yes edema (Bilateral 2-3+) Psych Mental Status: other Results Labs and Meds Result diagrams: 06/21/21 06:15 06/24/21 06:12 Lab results: Laboratory Results - last 24 hr 06/24/21 06:12 Sodium 142 Potassium 4.1 Chloride 106 Carbon Dioxide 26 Anion Gap 14 BUN 17 H Creatinine 0.89 Estim Creat Clear Calc 63.5 Estimated GFR > 60 Random Glucose 100 Calcium 9.0 Progress Note: A&P Assessment and plan (1) Acute on chronic diastolic CHF (congestive heart failure), NYHA class 3: Status: Acute (2) Hypertrophic cardiomyopathy: Status: Acute (3) Paroxysmal atrial fibrillation: Status: Acute (4) Pulmonary hypertension: Status: Acute (5) Non-rheumatic aortic stenosis: Status: Acute Assessment and Plan: Improving volume overload. So far, she is -4 L based on input-output charting. Change to PO diuretics. Most recent creatinine is 0.89 and BUN is 14. Potassium 4.1. Sodium 141. Cardiac BNP 735. High sensitive troponins in normal range. Chest x-ray reported to have small bilateral effusions and mild adjacent atelectasis but no large infiltrates or failure. Echocardiogram- Conclusions: - LVEF difficult to assess, but probably >50%. ? - Mildly increased right ventricular cavity size.? - Severe biatrial enlargement. ? - There is moderate aortic valve stenosis. ? - There is mild to moderate aortic valve regurgitation.? - There is moderate mitral valve regurgitation.? - There is moderate tricuspid valve regurgitation. ? - There is moderate dilatation of the ascending aorta measuring? 4.40 cm. ? - Moderate to severe pulmonary hypertension is present.? Discharge planning. Fall Risk Details Current Medications: Current Medications Generic Name Dose Route Start Last Admin Trade Name Freq PRN Reason Stop Dose Admin Acetaminophen 650 mg 06/20/21 23:51 06/24/21 09:34 Acetaminophen 325 Mg Tablet PO 650 mg Q6H PRN Administration Pain, Mild (Pain Scale 1-3) Albuterol Sulfate 2 puff 06/21/21 09:25 06/22/21 05:22 Albuterol Sulfate 90 Mcg 8 Gm Inhaler INHALE 2 puff Q4H PRN Administration Shortness Of Breath Amiodarone HCl 200 mg 06/22/21 09:00 06/24/21 09:35 Amiodarone Hcl 200 Mg Tablet PO 200 mg DAILY TONI Administration Docusate Sodium 100 mg 06/20/21 23:51 Docusate Sodium 100 Mg Capsule PO DAILY PRN Constipation Furosemide 40 mg 06/24/21 09:00 06/24/21 09:35 Furosemide 40 Mg Tablet PO 40 mg DAILY TONI Administration Protocol Loratadine 10 mg 06/22/21 11:15 06/24/21 09:35 Loratadine 10 Mg Tablet PO 10 mg DAILY TONI Administration Montelukast Sodium 10 mg 06/22/21 21:00 06/23/21 20:44 Montelukast Sodium 10 Mg Tablet PO 10 mg BEDTIME TONI Administration Ondansetron HCl 4 mg 06/20/21 23:51 Ondansetron Hcl 4 Mg/2 Ml Vial IVPUSH Q8H PRN Nausea and Vomiting Pharmacy Consult 1 each 06/20/21 21:02 Consult Rx Perform Med Rec MISCELLANE ONCE PRN Consult order Rivaroxaban 20 mg 06/22/21 09:15 06/24/21 09:34 Rivaroxaban 20 Mg Tablet PO 20 mg DAILY TONI Administration Sodium Chloride 3 ml 06/21/21 00:00 06/24/21 09:34 0.9 % Sodium Chloride Flush 3 Ml Syringe IVFLUSH 3 ml QSHIFT TONI Administration Verapamil HCl 160 mg 06/21/21 21:00 06/24/21 09:34 Verapamil Hcl 80 Mg Tablet PO 160 mg BID TONI Administration Protocol Time Spent With Patient Time: Total time spent is greater than 50% in coordination of care (as documented) at patient's floor/unit and/or counseling patient: Time with patient: less than 15 minutes Progress Note: Quality Stroke Does the patient have a stroke diagnosis?: No Procedures Date of Service Date of Service: 06/24/21
--- NOTE | 2021-06-24 13:56 | MHC.CM.PN ---
Addendum entered by Lilly Lezn 06/24/21 16:29: NO RESPONSES YET FORM SNFS. PT ALSO REQUESTED A REFERRAL TO [facility] IT IS CLOSE TO HER HOME, THIS WOULD BE THE 3RD CHOICE FACILITY. PT REPORTS SHE WAS VACCINATED AGAINST COVID 19 IN DECEMBER AND JANUARY WITH [employer]. THAT INFO WAS SENT TO SNFS. PT IS READY TO DC SOON A STR BED IS SECURED. Addendum entered by Lilly Lenz 06/24/21 15:58: CM MET WITH PT TO REVIEW 2ND IMM, PT EXPRESSED CONCERN ABOUT HER INABILITY TO WALK AND WAS WAITING FOR A PT EVAL AFTER SEEING PT, PT REPORTS BEING WILLING TO GO TO [facility]. SHE REQUESTED REFERRALS GO TO [facility] AND [facility]. REFERRALS MADE REQUESTING A BED FOR TODAY CURRENTLY AWAITING RESPONSE Original Note: PT CLEARED TO DC HOME TODAY WITH [facility]. [facility] FAMILY TO TRANSPORT
--- NOTE | 2021-06-24 14:04 | P.DS_ITS ---
DS: Providers Provider Date of Service: 06/24/21 Date of admission: 06/20/21 21:01 Primary care physician: Jerome Guido MD Consults: 06/20/21 23:51 Consult to Cardiology Routine Consulting Provider: Ankit Stuart Reason for consultation: CHF Has provider been notified: Yes DS: Diagnosis Discharge Diagnosis (1) Acute on chronic diastolic CHF (congestive heart failure), NYHA class 3: Status: Acute (2) Hypertrophic cardiomyopathy: Status: Acute (3) Paroxysmal atrial fibrillation: Status: Acute (4) Pulmonary hypertension: Status: Acute (5) Non-rheumatic aortic stenosis: Status: Acute DS: Medications Discharge Medications Home Medications: Home Medications Medication Instructions Recorded Confirmed albuterol sulfate 90 mcg/actuation 2 puff PO Q4H PRN 12/17/20 06/20/21 aerosol inhaler montelukast 10 mg tablet 10 mg PO DAILY 12/17/20 06/20/21 rivaroxaban 20 mg tablet 20 mg PO DAILY 12/17/20 06/20/21 Previous Rx's Medication Instructions Recorded amiodarone 200 mg tablet 200 mg PO DAILY #90 tab 01/31/21 verapamil 80 mg tablet 160 mg PO BID #360 tab 03/25/21 furosemide 40 mg tablet (Lasix) 60 mg PO QAM 30 Days #45 tab 06/24/21 DS: Summary Hospital Course Hospital Course: 75yo F with hypertrophic cardiomyopathy, HFpEF, paroxysmal atrial fibrillation, aortic stenosis, and pulmonary hypertension admitted for CHF exacerbation manifested by volume overload, leg edema, increase in BNP Hospital course: # acute/chronic HFpEF exacerbation--Was treated with IV lasix and BMP, I/O closely monitored. She has thus far diuresed 4 Liters. Was followed by cardiology (Dr. Mcmullen) recommend increasing Lasix to 60 mg daily up from 40. Advsie to limit salt intake, water intake, and weight self daily and to follow up with PCP and palliative medicine physician. #Chronic atrial fibrilation- continue amiodarone and verapamil and rivaorxban for anticoagulation and stroke prevention. Time Spent with Patient Time attestation: Total time spent providing and/or coordinating discharge services: Discharge coordination time: Greater than 30 minutes Quality: Stroke Does the patient have a stroke diagnosis?: No Physical Exam Vital Signs: Vital Signs: Last Vital Signs Temp 96.5 F L 06/24/21 11:04 Pulse 78 06/24/21 11:04 Resp 20 06/24/21 11:04 BP 141/76 H 06/24/21 11:04 Pulse Ox 94 06/24/21 11:04 Body Mass Index 29.6 DS: Data Data Completed and Pending Labs on day of discharge: Laboratory Results - last 24 hr 06/24/21 06:12 Sodium 142 Potassium 4.1 Chloride 106 Carbon Dioxide 26 Anion Gap 14 BUN 17 H Creatinine 0.89 Estim Creat Clear Calc 63.5 Estimated GFR > 60 Random Glucose 100 Calcium 9.0 Discharge Plan Discharge Anticipated Discharge Date/Time: 06/24/21 13:43 Patient Disposition: Home Health Service Discharge Diagnosis: Exacerbation of heart failure Referrals: Karla FERNÁNDEZ [Outside] - 1 Week Jerome Guido MD [Primary Care Provider] - 1 Week Discharge Medications: New furosemide [Lasix] 40 mg tablet 60 mg PO QAM 30 Days Qty: 45 RF: 1 Continued amiodarone 200 mg tablet 200 mg PO DAILY Qty: 90 RF: 1 verapamil 80 mg tablet 160 mg PO BID Qty: 360 RF: 1 albuterol sulfate 90 mcg/actuation HFA aerosol inhaler 2 puff PO Q4H PRN (Reason: Shortness Of Breath) RF: 0 rivaroxaban 20 mg tablet 20 mg PO DAILY RF: 0 montelukast 10 mg tablet 10 mg PO DAILY RF: 0 Discontinued furosemide 40 mg tablet 40 mg PO DAILY RF: 0 Discharge Orders: Discharge Order (Routine); Ordered 06/24/21 Ordered By: Kit Rizo Diet: advance to usual diet Activity on Discharge: As tolerated Stand Alone Forms: Patient Portal Discharge page Care Plan Goals: Prevent frequent hospitalization for heart failure Health Concerns: chronic heart failure Plan of Treatment: Take Lasix at increase dose of 60 mg daily, follow up with your Doctor and your heart doctor, avoid salty food and limit water intake to no more than 1200 cc a day, weight yourself daily-- Assessment: as above
--- NOTE | 2021-06-24 15:15 | PC.NURSE ---
Physical Therapy notified for evaluation and treatment prior to patient d/c home
--- NOTE | 2021-06-24 16:39 | HO.PM.IMPN ---
Subjective Subjective Date of Service: 06/24/21 Interval History: Seen in f/u for heart failure, overall feels better, negative 4 liters, no hypoxia Review of Systems Gen:?no fever Resp:?+ sob, no cough CV:?no chest, + RODRIGUEZ, no leg edema GI:?No n/v, no abd pain Neuro:?No confusion Physical Exam Vital Signs: Vital Signs: Last Vital Signs Temp 97.2 F 06/24/21 15:07 Pulse 76 06/24/21 15:07 Resp 20 06/24/21 15:07 BP 131/78 06/24/21 15:07 Pulse Ox 96 06/24/21 15:07 Body Mass Index 29.6 Const: Other: Gen: in no acute distress HEENT: sclera anicteric, moist mucus membranes Neck: supple Lungs: clear to auscultation bilaterally Heart: regular rate and rhythm, 3/6 murmur along LSB Abd: soft, non-tender, non-distended Ext: 2+ BLE edema with venous stasis hyperpigmentation Skin: warm/well-perfused Neuro: alert and oriented x3, no focal findings Psych: appropriate affect ? ? Objective Data Current Medications Generic Name Dose Route Start Last Admin Trade Name Freq PRN Reason Stop Dose Admin Acetaminophen 650 mg 06/20/21 23:51 06/24/21 09:34 Acetaminophen 325 Mg Tablet PO 650 mg Q6H PRN Administration Pain, Mild (Pain Scale 1-3) Albuterol Sulfate 2 puff 06/21/21 09:25 06/22/21 05:22 Albuterol Sulfate 90 Mcg 8 Gm Inhaler INHALE 2 puff Q4H PRN Administration Shortness Of Breath Amiodarone HCl 200 mg 06/22/21 09:00 06/24/21 09:35 Amiodarone Hcl 200 Mg Tablet PO 200 mg DAILY TONI Administration Docusate Sodium 100 mg 06/20/21 23:51 Docusate Sodium 100 Mg Capsule PO DAILY PRN Constipation Furosemide 40 mg 06/24/21 09:00 06/24/21 09:35 Furosemide 40 Mg Tablet PO 40 mg DAILY TONI Administration Protocol Loratadine 10 mg 06/22/21 11:15 06/24/21 09:35 Loratadine 10 Mg Tablet PO 10 mg DAILY TONI Administration Montelukast Sodium 10 mg 06/22/21 21:00 06/23/21 20:44 Montelukast Sodium 10 Mg Tablet PO 10 mg BEDTIME TONI Administration Ondansetron HCl 4 mg 06/20/21 23:51 Ondansetron Hcl 4 Mg/2 Ml Vial IVPUSH Q8H PRN Nausea and Vomiting Pharmacy Consult 1 each 06/20/21 21:02 Consult Rx Perform Med Rec MISCELLANE ONCE PRN Consult order Rivaroxaban 20 mg 06/22/21 09:15 06/24/21 09:34 Rivaroxaban 20 Mg Tablet PO 20 mg DAILY TONI Administration Sodium Chloride 3 ml 06/21/21 00:00 06/24/21 16:19 0.9 % Sodium Chloride Flush 3 Ml Syringe IVFLUSH 3 ml QSHIFT TONI Administration Verapamil HCl 160 mg 06/21/21 21:00 06/24/21 09:34 Verapamil Hcl 80 Mg Tablet PO 160 mg BID TONI Administration Protocol Labs CBC & Chem 7: 06/21/21 06:15 06/24/21 06:12 Labs: Laboratory Results - last 24 hr 06/24/21 06:12 Anion Gap 14 Estim Creat Clear Calc 63.5 Estimated GFR > 60 Random Glucose 100 Calcium 9.0 Assessment and Plan (1) Acute on chronic diastolic CHF (congestive heart failure), NYHA class 3: Status: Acute (2) Paroxysmal atrial fibrillation: Status: Acute Assessment and Plan: 75yo F with hypertrophic cardiomyopathy, HFpEF, paroxysmal atrial fibrillation, aortic stenosis, and pulmonary hypertension admitted for CHF exacerbation manifested by volume overload, leg edema, increase in BNP Hospital course: # acute/chronic HFpEF exacerbation--Was treated with IV lasix and BMP, I/O closely monitored. She has thus far diuresed 4 Liters. Was followed by cardiology (Dr. Mcmullen) recommend increasing Lasix to 60 mg daily up from 40. Advsie to limit salt intake, water intake,? and weight self daily and to follow up with PCP and computer help desk representative upon discharge #Chronic atrial fibrilation- continue amiodarone? and verapamil and? rivaorxban for anticoagulation and stroke prevention, #Patient had initially declined to go to rehab but perfromed poorly with PT and changed mind about going home and would rather go to rehab, CM working on this Quality Stroke Does the patient have a stroke diagnosis?: No VTE Prior VTE?: No VTE Risk Level:: Medical - moderate - high VTE Device Contraindication: Treatment Not Indicated VTE Drug Contraindication: N/A - Med Ordered
[2021-06-24] MEDS: Montelukast Sodium 10 MG TABLET PO (19:52)
[2021-06-25 03:31] VITALS: BP 132/78; PULSE 75; RESP 18; TEMP 36.6; O2SAT 98
[2021-06-25 06:00] VITALS: BMI 30.2
[2021-06-25] MEDS: Furosemide 20 MG TABLET 60 MG PO (06:12)
[2021-06-25] MEDS: Albuterol Sulfate 90 MCG 8 GM INHALER 2 PUFF INHALE (06:15)
--- NOTE | 2021-06-25 07:22 | PC.NURSE ---
2300 pt c/o R sinus infection x 1 week with frequent yellow drainage, no abx ordered. coretext to Dr. Rogers/hospitalist & fluticasone propionate ordered - but unavailable. nsg supv aware - unavailable until am when in-house pharmacy is available. pt updated and is agreeable to plan. orthopnea resps overnight, no resp. distress. 0630 - pt sleeping in tripod position in bed. sats 97% on RA -admits to some sob. lasix 60mg po given early (0900 dose) & mdi 2 puffs given as ordered. pt oob to bsc to void with 1 assist & back to bed. rr 22. positioned for comfort. pt reports relief of sob. report given to next shift - to update .
[2021-06-25 07:33] VITALS: BP 140/86; PULSE 94; RESP 20; TEMP 36.3; O2SAT 97
[2021-06-25 08:11] VITALS: BP 140/86; PULSE 94
[2021-06-25] MEDS: VerapamiL HCL 80 MG TABLET 160 MG PO (08:11)
[2021-06-25 08:12] VITALS: BP 140/86; PULSE 94
[2021-06-25] MEDS: Amiodarone HCL 200 MG TABLET PO (08:12)
[2021-06-25] MEDS: Rivaroxaban 20 MG TABLET PO (08:12)
[2021-06-25] MEDS: Loratadine 10 MG TABLET PO (08:12)
[2021-06-25] MEDS: 0.9 % Sodium Chloride Flush 3 ML SYRINGE IVFLUSH (08:13)
[2021-06-25] MEDS: Fluticasone Propionate Nasal 16 GM SPRAY 1 SPRAY NOSTRIL-B (08:13)
--- NOTE | 2021-06-25 11:14 | PM.PNCARD ---
Subjective Subjective Date of Service: 06/25/21 Interval history: Mild shortness of breath; leg swellig still present. Review of Systems Review of Systems Yes all other systems are reviewed and are negative Cardiovascular: Reports as per HPI, Reports no additional cardiovascular complaints, Denies acrocyanosis, Denies cool extremities, Denies painful fingertips, Denies chest pain, Denies chest pain at rest, Denies diaphoresis, Denies syncope, Denies irregular heart rhythm, Denies claudication, Reports leg edema, Denies lightheadedness, Denies palpitations and Reports dyspnea Respiratory: Reports dyspnea Denies syncope Endocrine: Denies palpitations Physical Exam Vital Signs: Last Vital Signs Temp 97.4 F 06/25/21 07:33 Pulse 94 06/25/21 08:12 Resp 20 06/25/21 07:33 BP 140/86 H 06/25/21 08:12 Pulse Ox 97 06/25/21 07:33 Body Mass Index 30.2 Const General: cooperative and no acute distress HENMT Other: Unremarkable Neck Neck: Yes normal visual inspection Chest Chest palpation & inspection: normal inspection of the chest Resp Auscultation: clear to auscultation bilaterally, no crackles and no wheezes Cardio Jugular venous distension: no JVD Palpation: normal PMI Heart sounds: S1 normal heart sound present, S2 abnormal (Soft), no gallops, Murmur heart sound present (3/6 systolic murmur heard all over the precordium.) and no rubs GI Palpation (GI): Soft to palpation Back/Spine/Pelvis Other: unremarkable Skin General skin exam: no rashes or lesions noted Neuro Cranial nerves: Yes Other cranial nerve findings present Extrem General: Yes edema (Bilateral 2-3+) Psych Mental Status: other Results Labs and Meds Result diagrams: 06/21/21 06:15 06/24/21 06:12 Progress Note: A&P Assessment and plan (1) Acute on chronic diastolic CHF (congestive heart failure), NYHA class 3: Status: Acute (2) Hypertrophic cardiomyopathy: Status: Acute (3) Paroxysmal atrial fibrillation: Status: Acute (4) Pulmonary hypertension: Status: Acute (5) Non-rheumatic aortic stenosis: Status: Acute Assessment and Plan: Improving volume overload. So far, she is -4.6L based on input-output charting. On PO diuretics. Most recent creatinine is 0.89 and BUN is 14. Potassium 4.1. Cardiac BNP 735. High sensitive troponins in normal range. Chest x-ray reported to have small bilateral effusions and mild adjacent atelectasis but no large infiltrates or failure. Echocardiogram- Conclusions: - LVEF difficult to assess, but probably >50%. ? - Mildly increased right ventricular cavity size.? - Severe biatrial enlargement. ? - There is moderate aortic valve stenosis. ? - There is mild to moderate aortic valve regurgitation.? - There is moderate mitral valve regurgitation.? - There is moderate tricuspid valve regurgitation. ? - There is moderate dilatation of the ascending aorta measuring? 4.40 cm. ? - Moderate to severe pulmonary hypertension is present.? Discharge planning. Fall Risk Details Current Medications: Current Medications Generic Name Dose Route Start Last Admin Trade Name Freq PRN Reason Stop Dose Admin Acetaminophen 650 mg 06/20/21 23:51 06/24/21 23:47 Acetaminophen 325 Mg Tablet PO 650 mg Q6H PRN Administration Pain, Mild (Pain Scale 1-3) Albuterol Sulfate 2 puff 06/21/21 09:25 06/25/21 06:15 Albuterol Sulfate 90 Mcg 8 Gm Inhaler INHALE 2 puff Q4H PRN Administration Shortness Of Breath Amiodarone HCl 200 mg 06/22/21 09:00 06/25/21 08:12 Amiodarone Hcl 200 Mg Tablet PO 200 mg DAILY TONI Administration Docusate Sodium 100 mg 06/20/21 23:51 Docusate Sodium 100 Mg Capsule PO DAILY PRN Constipation Fluticasone Propionate 1 spray 06/25/21 08:00 06/25/21 08:13 Fluticasone Propionate Nasal 16 Gm [place] NOSTRIL-B 06/26/21 08:01 1 spray 08,1999 TONI Administration Furosemide 60 mg 06/25/21 09:00 06/25/21 06:12 Furosemide 20 Mg Tablet PO 60 mg DAILY TONI Administration Protocol Loratadine 10 mg 06/22/21 11:15 06/25/21 08:12 Loratadine 10 Mg Tablet PO 10 mg DAILY TONI Administration Montelukast Sodium 10 mg 06/22/21 21:00 06/24/21 19:52 Montelukast Sodium 10 Mg Tablet PO 10 mg BEDTIME TONI Administration Ondansetron HCl 4 mg 06/20/21 23:51 Ondansetron Hcl 4 Mg/2 Ml Vial IVPUSH Q8H PRN Nausea and Vomiting Pharmacy Consult 1 each 06/20/21 21:02 Consult Rx Perform Med Rec MISCELLANE ONCE PRN Consult order Rivaroxaban 20 mg 06/22/21 09:15 06/25/21 08:12 Rivaroxaban 20 Mg Tablet PO 20 mg DAILY TONI Administration Sodium Chloride 3 ml 06/21/21 00:00 06/25/21 08:13 0.9 % Sodium Chloride Flush 3 Ml Syringe IVFLUSH 3 ml QSHIFT TONI Administration Verapamil HCl 160 mg 06/21/21 21:00 06/25/21 08:11 Verapamil Hcl 80 Mg Tablet PO 160 mg BID TONI Administration Protocol Time Spent With Patient Time: Total time spent is greater than 50% in coordination of care (as documented) at patient's floor/unit and/or counseling patient: Time with patient: less than 15 minutes Progress Note: Quality Stroke Does the patient have a stroke diagnosis?: No Procedures Date of Service Date of Service: 06/25/21
[2021-06-25 11:15] VITALS: BP 140/86; PULSE 94
--- NOTE | 2021-06-25 11:16 | MHC.CM.PN ---
Per ROUNDS discussion, Patient will be medically cleared for dc to SNF/STR today (PT recommended STR). Patient has been accepted at her first choice SNF[facility] and she will dc there today at 2PM, via [facility]. Patient is aware of and in agreement with the dc plan. Last IMM addressed yesterday.CM left a detailed message for Son/Michael @ [phone], informing him of the dc plan and requesting that he provide [facility] with a copy of Patient's HCP and Covid vax card.
[2021-06-25 11:59] VITALS: BP 126/67; PULSE 75; RESP 19; TEMP 36.5; O2SAT 98
--- NOTE | 2021-06-25 12:44 | MHC.CM.PN ---
Transportation was changed to [facility], rather than ambulance, per Patient's request.
[2021-06-25 13:35] LABS: IDNOW Serial# 9DD0AD1C
[2021-06-25 15:04] LABS: Influenza A PCR NEGATIVE (Negative); Influenza B PCR NEGATIVE (Negative); Resp Syncy Virus RNA Qual PCR NEGATIVE (Negative); SARS COV2 PCR INHOUSE NEGATIVE (Negative)
== END 2021-06-25 16:14 | disposition skilled nursing facility (03) | DRG 292 ==
LOC: HO.ED 16:31 → HO.EDOVER 22:41 → HO.IMC 23:17
PROVIDERS: Family Medicine; Internal Medicine; Admitting Provider Internal Medicine; Emergency Provider Emergency Medicine Emergency Medical Services; PCP Internal Medicine; Visit Provider Internal Medicine
DX: I50.33 Acute on chronic diastolic (congestive) heart failure (principal); I42.2 Other hypertrophic cardiomyopathy; I48.0 Paroxysmal atrial fibrillation; I35.0 Nonrheumatic aortic (valve) stenosis; I27.20 Pulmonary hypertension, unspecified; Z95.0 Presence of cardiac pacemaker; Z20.822 Contact with and (suspected) exposure to COVID-19; Z87.891 Personal history of nicotine dependence; Z79.01 Long term (current) use of anticoagulants; Z79.899 Other long term (current) drug therapy
CPT/HCPCS: 0241U; 36415; 71046; 80048; 80053; 83690; 83735; 83880; 84484; 85025; 85610; 85730; 87635; 93005; 93306; 94640; 96374; 97110; 97162; 99212; 99285; J1940

== ENCOUNTER → 2021-09-12 14:48 | Outpatient (BNVA) | payer MEDICARE, OTHER, SELFPAY | PROVIDERS: PCP Internal Medicine; Referring Provider Internal Medicine; Visit Provider Internal Medicine Cardiovascular Disease | DX: Z45.018 Encounter for adjustment and management of other part of cardiac pacemaker (principal); I35.0 Nonrheumatic aortic (valve) stenosis; I50.30 Unspecified diastolic (congestive) heart failure; I48.0 Paroxysmal atrial fibrillation; I25.10 Atherosclerotic heart disease of native coronary artery without angina pectoris; R53.81 Other malaise | CPT/HCPCS: 93005; 99212 ==

== ENCOUNTER 2021-09-26 15:45 | Outpatient (REF) | payer MEDICARE, OTHER, SELFPAY ==
[2021-09-26 16:47] LABS: Anion Gap 11 (12-20); Blood Urea Nitrogen 13 mg/dL (9-16); Calcium 8.7 mg/dL (8.4-10.2); Carbon Dioxide 24 mmol/L (22-29); Chloride 106 mmol/L (96-108); Estimated Glomerular Filt Rate > 60; Glucose Random 113 mg/dL (60-115); Potassium 4.3 mmol/L (3.3-5.1); Sodium 137 mmol/L (135-145)
[2021-09-26 16:52] LABS: B Type Natriuretic Peptide 376 pg/mL (<100)
== END 2021-09-26 15:46 | disposition home or self-care (01) ==
LOC: HO.LAB 15:45
PROVIDERS: PCP Internal Medicine; Visit Provider Internal Medicine Cardiovascular Disease
DX: I50.30 Unspecified diastolic (congestive) heart failure (principal)
CPT/HCPCS: 36415; 80048; 83880

== ENCOUNTER → 2021-11-26 15:25 | Outpatient (BNVA) | payer MEDICARE, OTHER, SELFPAY | PROVIDERS: PCP Internal Medicine; Referring Provider Internal Medicine; Visit Provider Internal Medicine Cardiovascular Disease | DX: I50.30 Unspecified diastolic (congestive) heart failure (principal); I48.0 Paroxysmal atrial fibrillation; I25.10 Atherosclerotic heart disease of native coronary artery without angina pectoris; I35.0 Nonrheumatic aortic (valve) stenosis; Z79.01 Long term (current) use of anticoagulants; Z79.899 Other long term (current) drug therapy; Z45.018 Encounter for adjustment and management of other part of cardiac pacemaker | CPT/HCPCS: 93005; 99212 ==

== ENCOUNTER → 2022-01-20 10:28 | Outpatient (REF) | payer MEDICARE, OTHER, SELFPAY ==
--- NOTE | ~2022-01-20 | NM_ITS ---
TC-PYP Cardiac Study INDICATION: Evaluation for Cardiac Amyloidosis CLINICAL HISTORY: 76 years old Female with congestive heart failure to evaluate for pleural effusion to evaluate for cardiac amyloidosis TECHNIQUE: 25 mCi of Tc-99m pyrophosphate was injected intravenously. Planar images of the chest were obtained in the anterior and left lateral views at 3 hours.. SPECT-CT images of the chest were also obtained. Total DLP 84 mGy-cm. COMPARISON: None FINDINGS: 1. Image Quality: Fair 2. Semi-quantitative visual scoring of the cardiac uptake is performed as follows: is 0 = absent cardiac uptake and intense bone uptake 3. H-CL Ratio if Applicable: not applicable 4. Ancillary Finds: None NM/NM TC PYP cardiac amyloidosis IMPRESSION: 1. No evidence of wild type ATTR cardiac amyloidosis 2. Please note that the Tc 99m PYP is more sensitive in detecting transthyretin-related cardiac amyloidosis than that of light-chain cardiac amyloidosis.
== END ==
LOC: HO.NUCMED 10:28
PROVIDERS: Visit Provider Internal Medicine Cardiovascular Disease
DX: I50.30 Unspecified diastolic (congestive) heart failure (principal)
CPT/HCPCS: 78803; A9538

== ENCOUNTER → 2022-01-30 14:56 | Outpatient (BNVA) | payer MEDICARE, OTHER, SELFPAY | PROVIDERS: PCP Internal Medicine; Referring Provider Internal Medicine; Visit Provider Internal Medicine Cardiovascular Disease | DX: I50.30 Unspecified diastolic (congestive) heart failure (principal); I25.10 Atherosclerotic heart disease of native coronary artery without angina pectoris; I48.0 Paroxysmal atrial fibrillation; I35.0 Nonrheumatic aortic (valve) stenosis; Z45.018 Encounter for adjustment and management of other part of cardiac pacemaker; Z79.01 Long term (current) use of anticoagulants; Z79.899 Other long term (current) drug therapy | CPT/HCPCS: 93005; 99212 ==

== ENCOUNTER 2022-02-20 11:10 | Day surgery (SDC) | payer MEDICARE, OTHER, SELFPAY ==
[2022-02-13 15:46] VITALS: BMI 23.1
--- NOTE | 2022-02-19 12:50 | P.CONAN_ITS ---
Documented by User: Wendy Cat NP 02/19/22 12:54 HPI - Anesthesia Eval Consult details Narrative: 76yo F for Pacemaker battery change (dual) Xarelto for PAF/DVT/PE PMFSH Active Problems Active Problems: All Active Problems (Updated 02/13/22 @ 15:46 by Cintia Davalos RN) Paroxysmal atrial fibrillation (Acute) Obesity (Acute) Cardiac pacemaker in situ (Acute) CAD (coronary artery disease) (Acute) Aortic stenosis (Acute) (HFpEF) heart failure with preserved ejection fraction (Acute) Past Medical History Medical History (Updated 02/20/22 @ 11:47 by Aminata Jerry PA-C) (HFpEF) heart failure with preserved ejection fraction Anemia Aortic stenosis Asthma CAD (coronary artery disease) Cardiac pacemaker in situ Cervical disc disorder Congestive heart failure Edema, peripheral History of blood transfusion History of DVT (deep vein thrombosis) History of GI bleed Hx of pulmonary embolus Hypertrophic cardiomyopathy Non-rheumatic aortic stenosis Obesity Paroxysmal atrial fibrillation Personal history of COVID-19 Pulmonary hypertension Family History Family History Father No problems noted. Mother CVD (cardiovascular disease) Surgical History Surgical History (Updated 02/20/22 @ 09:49 by Aminata Jerry PA-C) History of cardiac cath History of cardioversion History of elbow surgery History of heart surgery History of permanent cardiac pacemaker placement Social History Social History Household Members: Children Household Members Other:: son Housing: House Are you a primary college and career counselor to a significant other at home: No Do you presently have visiting nurse or other home services: No Patient Tobacco Use Status: Former Tobacco user Quit Date: 40 yrs ago Tobacco use type: Cigarette Second Hand Smoke Exposure: No Use of substances other than those prescribed or required for medical reasons: No Have you been hit, kicked, punched, or otherwise hurt by someone within the past year? If so, by whom?: No Are you DNR?: No Advance Directives: No Advance Directives Information Provided: Yes (Mailed w/ pre-op instructions) Advance Directives on File: No Recently lost weight without trying: No Eating poorly because of decreased appetite: No Nutrition Risks: No Nutritional Risk Patient : No Poor oral hygiene: Yes (Upper bridge- Loose,chipped teeth) service: No Current occupational status: employed Meds Allergies Allergy/AdvReac Type Severity Reaction Status Date / Time latex Allergy Mild Redness of Verified 02/20/22 12:25 Skin seasonal Allergy Mild Itchy Eyes Uncoded 02/13/22 15:24 Home Medications Medication Instructions Recorded Confirmed Last Taken Type albuterol sulfate 90 mcg/actuation 2 puff PO Q4H PRN 12/17/20 02/13/22 Unknown History aerosol inhaler montelukast 10 mg tablet 10 mg PO DAILY 12/17/20 02/13/22 06/20/21 History rivaroxaban 20 mg tablet 20 mg PO DAILY 12/17/20 02/20/22 02/18/22 History furosemide 40 mg tablet (Lasix) 40 mg PO QAM tab 09/12/21 02/13/22 Unknown History Exam Exam Date and Time: February 19, 2022 1250 Height,Weight and Vital Signs: Height 5 ft 8 in Weight 68.946 kg Pertinent Lab Results Pertinent Lab Results: Laboratory Tests 06/21/21 09/26/21 06:15 15:50 WBC 6.1 Hgb 10.9 L Hct 37.2 Plt Count TNP Sodium 137 Potassium 4.3 Chloride 106 Carbon Dioxide 24 BUN 13 Creatinine 0.88 Narrative Narrative: Cardiac Device Check 01/2022 Details: ?dual-chamber [employer] pacemaker in place.? 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 Atrial ventricular pacing 99.4% of the time.? A activity level is improved to 1.7 hours a day.? No episodes of atrial fibrillation noted.? pacing lead impedance is stable.? Atrial ventricular sensing is excellent.? Atrial ventricular capture thresholds are stable.? Atrial capture thresholds are slightly elevated probably due to atrial fibrosis EKG 01/2022 AV dual paced rhythm with QRS duration of 220 milliseconds and QT duration 532 milliseconds ECHO 06/2021 Conclusions: - LVEF difficult to assess, but probably >50%. ? - Mildly increased right ventricular cavity size.? - Severe biatrial enlargement. ? - There is moderate aortic valve stenosis. ? - There is mild to moderate aortic valve regurgitation.? - There is moderate mitral valve regurgitation.? - There is moderate tricuspid valve regurgitation. ? - There is moderate dilatation of the ascending aorta measuring? 4.40 cm. ? - Moderate to severe pulmonary hypertension is present.?? Assessment and Plan Assessment Anesthesia Assessment: Chart Reviewed Documented by User: Liane Grover MD 02/20/22 12:41 [facility] Past Medical History Medical History (Updated 02/20/22 @ 11:47 by Aminata Jerry PA-C) (HFpEF) heart failure with preserved ejection fraction Anemia Aortic stenosis Asthma CAD (coronary artery disease) Cardiac pacemaker in situ Cervical disc disorder Congestive heart failure Edema, peripheral History of blood transfusion History of DVT (deep vein thrombosis) History of GI bleed Hx of pulmonary embolus Hypertrophic cardiomyopathy Non-rheumatic aortic stenosis Obesity Paroxysmal atrial fibrillation Personal history of COVID-19 Pulmonary hypertension Family History Family History Father No problems noted. Mother CVD (cardiovascular disease) Family history of problems with anesthesia: No Surgical History Surgical History (Updated 02/20/22 @ 09:49 by Aminata Jerry PA-C) History of cardiac cath History of cardioversion History of elbow surgery History of heart surgery History of permanent cardiac pacemaker placement History of Problems with Anesthesia: No Social History Social History Household Members: Children Household Members Other:: son Housing: House Are you a primary college and career counselor to a significant other at home: No Do you presently have visiting nurse or other home services: No Patient Tobacco Use Status: Former Tobacco user Quit Date: 40 yrs ago Tobacco use type: Cigarette Second Hand Smoke Exposure: No Use of substances other than those prescribed or required for medical reasons: No Have you been hit, kicked, punched, or otherwise hurt by someone within the past year? If so, by whom?: No Are you DNR?: No Advance Directives: No Advance Directives Information Provided: Yes (Mailed w/ pre-op instructions) Advance Directives on File: No Recently lost weight without trying: No Eating poorly because of decreased appetite: No Nutrition Risks: No Nutritional Risk Patient : No Poor oral hygiene: Yes (Upper bridge- Loose,chipped teeth) service: No Current occupational status: employed Meds Allergies Allergy/AdvReac Type Severity Reaction Status Date / Time latex Allergy Mild Redness of Verified 02/20/22 12:25 Skin seasonal Allergy Mild Itchy Eyes Uncoded 02/13/22 15:24 Home Medications Medication Instructions Recorded Confirmed Last Taken Type albuterol sulfate 90 mcg/actuation 2 puff PO Q4H PRN 12/17/20 02/13/22 Unknown History aerosol inhaler montelukast 10 mg tablet 10 mg PO DAILY 12/17/20 02/13/22 06/20/21 History rivaroxaban 20 mg tablet 20 mg PO DAILY 12/17/20 02/20/22 02/18/22 History furosemide 40 mg tablet (Lasix) 40 mg PO QAM tab 09/12/21 02/13/22 Unknown History Exam Airway Mallampati Class: II TM Dist: >3cm Neck ROM: Full Partial: Upper Loose/Missing/Broken Teeth: Yes and Upper Assessment and Plan Assessment Anesthesia Assessment: Anesthesia Plan Discussed Final Anesthetic Review Family History of Problems with Anesthesia: No History of Problems with Anesthesia: No NPO: Yes ASA Class: III Final Preanesthetic Review: No Changes in Pt Med Stat, Meds/Allgs Chart Reviewed, Consent Obtained/Reviewed and Anes Risks/Benef Reviewed Patient Risk: Intermediate Procedure Risk: Intermediate Anesthetic Plan Anesthetic Plan: GA Disposition: Standard PACU
[2022-02-20 11:31] VITALS: BP 145/87; PULSE 91; RESP 20; TEMP 37.1; O2SAT 95
--- NOTE | 2022-02-20 12:39 | MHC.SHP ---
Pre-Procedural Eval Section A Date of Service: 02/20/22 The patient is an INPATIENT: No The History & Physical has been completed within 30 days and I have reviewed it.: Yes Section B Chief Complaint: heart failure,aortic stenosis.paroxymal afib Allergies: Allergies Allergy/AdvReac Type Severity Reaction Status Date / Time latex Allergy Mild Redness of Verified 02/20/22 12:25 Skin seasonal Allergy Mild Itchy Eyes Uncoded 02/13/22 15:24 Plan I have reviewed the history and physical and performed a pertinent physical examination on my patient. No changes have occurred unless specified.Dual chamber pacemaker generator change
[2022-02-20] MEDS: Lactated Ringers 1,000 ML 50 ML IVCONT (12:48)
--- NOTE | 2022-02-20 14:19 | P.OP_ITS ---
Operative Note Operative Note Date of Service: 02/20/22 Narrative: Preoperative diagnosis: Pacemaker end of life Postoperative diagnosis: Same Operation: Dual-chamber pacemaker generator change Surgeon: Cleveland Schneider MD Anesthesia: Local with sedation Specimens: None EBL: Minimal Operative findings: The generator were removed was a[employer]tronic. Pacemaker lead parameters were in the atrial lead threshold 2 volts, P-wave 1.3 mV, impedance 380 Ohms. In the ventricular lead threshold 0.75 volts, impedance 399 Ohms, R- wave 14.1 mV. Patient tolerated the procedure well. Operation in detail: The patient was brought the operating room, placed supine on the operative table, anesthesia monitoring devices were placed, and the patient was gently sedated. The left infraclavicular area was then prepped and draped in a standard sterile fashion and a time-out was performed confirming the correct patient, site, and procedure. After injection of local anesthetic, a 3 cm incision was made directly over the old pacemaker generator which was palpable. This was carried down with combination of sharp dissection and minimal electrocautery to open up the capsule at the generator was within. The generator was were then removed from its pocket and the leads were taken out of the receptacles and placed directly into the new generator. These leads were then tested and were working appropriately. The pocket was then copiously irrigated with antibiotic solution and the excess wire and generator were then placed back into the pocket. The wound was then closed with a deep running 3-0 Vicryl suture followed by running 3-0 Vicryl suture and Dermabond glue on the skin. Patient tolerated the procedure well. Patient was then awoken from anesthesia and brought to the recovery room in stable condition.
[2022-02-20 14:24] VITALS: BP 160/73; PULSE 70; RESP 20; TEMP 37.4; O2SAT 91
[2022-02-20 14:40] VITALS: BP 160/75; PULSE 70; RESP 20; O2SAT 94
[2022-02-20 14:55] VITALS: BP 169/84; PULSE 70; RESP 20; O2SAT 94
[2022-02-20 15:10] VITALS: BP 159/77; PULSE 70; RESP 20; O2SAT 94
[2022-02-20 15:25] VITALS: BP 167/78; PULSE 70; RESP 16; TEMP 37.2; O2SAT 94
== END 2022-02-20 15:57 | disposition home or self-care (01) ==
PROVIDERS: PCP Internal Medicine; Visit Provider Surgery
PROC: (CPT 33228; principal; 2022-02-20 13:00)
DX: Z45.010 Encounter for checking and testing of cardiac pacemaker pulse generator [battery] (principal); I25.10 Atherosclerotic heart disease of native coronary artery without angina pectoris; I48.0 Paroxysmal atrial fibrillation; I35.0 Nonrheumatic aortic (valve) stenosis; I50.30 Unspecified diastolic (congestive) heart failure; Z79.899 Other long term (current) drug therapy; Z91.040 Latex allergy status; Z87.891 Personal history of nicotine dependence
CPT/HCPCS: 33228; C1785; J0690; J3370

== ENCOUNTER → 2022-03-05 11:11 | Outpatient (BNVA) | payer MEDICARE, OTHER, SELFPAY | PROVIDERS: PCP Internal Medicine; Referring Provider Internal Medicine; Visit Provider Internal Medicine Cardiovascular Disease | DX: I50.30 Unspecified diastolic (congestive) heart failure (principal); I48.0 Paroxysmal atrial fibrillation; I25.10 Atherosclerotic heart disease of native coronary artery without angina pectoris; I35.0 Nonrheumatic aortic (valve) stenosis; Z45.018 Encounter for adjustment and management of other part of cardiac pacemaker; Z79.01 Long term (current) use of anticoagulants | CPT/HCPCS: 93280; 99212 ==

== ENCOUNTER → 2022-03-07 11:19 | Outpatient (BNVA) | payer MEDICARE, OTHER, SELFPAY | PROVIDERS: PCP Internal Medicine; Visit Provider Surgery | DX: Z48.89 Encounter for other specified surgical aftercare (principal); Z95.0 Presence of cardiac pacemaker | CPT/HCPCS: 99212 ==

== ENCOUNTER → 2022-07-01 14:39 | Outpatient (REF) | payer MEDICARE, OTHER, SELFPAY ==
--- NOTE | 2022-07-01 14:44 | CA_ITS ---
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 The calculated ejection fraction is 56% by biplane method. - Evidence suggests grade II (moderate) diastolic dysfunction. - Severe biatrial enlargement. - There is moderate aortic valve stenosis. There is mild to moderate aortic valve regurgitation. - There is moderate mitral annular calcification. - There is mild to moderate mitral valve regurgitation. - There is moderate tricuspid valve regurgitation. - Moderate pulmonary hypertension is present. Findings Left Ventricle Normal left ventricular cavity size. There is mildly increased left ventricular wall thickness. The left ventricular systolic function is normal. The calculated ejection fraction is 56% by biplane method. There is no evidence of regional wall motion abnormalities. E/E prime ratio is >15, consistent with elevated filling pressures. Evidence suggests grade II (moderate) diastolic dysfunction. Right Ventricle Mildly increased right ventricular cavity size. There is normal right ventricular systolic function. There is a pacemaker wire seen in the right ventricle. Atria Severe biatrial enlargement. Aortic Valve There is moderate calcification of the aortic valve. There is moderate aortic valve stenosis. The mean gradient is 29 mmHg. The aortic valve area is 1.29 cm2. There is mild to moderate aortic valve regurgitation. Mitral Valve There is moderate mitral annular calcification. There is mild to moderate mitral valve regurgitation. There is trace mitral valve stenosis. Pulmonic Valve There is trace pulmonic valve regurgitation. Tricuspid Valve There is moderate tricuspid valve regurgitation. The right ventricular systolic pressure is 56 mmHg. Moderate pulmonary hypertension is present. Great Vessels The asc aorta is normal in size. Venous The inferior vena cava is dilated and collapses greater than 50% with inspiration. Pericardium/Pleural There is no evidence of pericardial effusion. Prior Study Comparison Changes noted compared to prior study dated: 06/21/2021. Ascending aortic size in prior study was 4.4 cm but currently 3.5 cm. There is a discrepancy. Consider CTA if clinically indicated. Measurements 2D Linear Measurements IVSd: 1.29 0.6-0.9/0.6-1.0 cm LVIDd: 5.39 3.9-5.3/4.2-5.9 cm LVIDd Index: 2.95 2.4-3.2/2.2-3.1 cm/m2 LVIDs: 3.58 2.0-3.6 cm LVPWd: 1.26 0.7-1.1 cm LA Diam: 4.70 2.7-3.8/3.0-4.0 cm LAIDs Index: 2.57 1.5-2.3 cm/m2 LV Mass: 357.73 67-162/88-224 g LV Mass Index: 195.48 43-95/49-115 g/m2 LVOT Diam: 2.00 3.0+(-)1.3 cm 2D Systolic Function EF 4C: 55.00 >55% EF 2C: 56.50 >55% EF BiP: 56.00 >55% Mitral Valve MV VTI: 0.38 MV Pk Yo: 1.74 MV Mn Yo: 0.92 MV Pk Grad: 12.00 MV Mn Grad: 4.00 MV Pk E: 1.50 MV PK A: 0.97 MV Decel Time: 252.00 E/A: 1.50 E'Lateral: 8.81 E'Medial: 4.90 E/E' Med: 30.60 E/E' Lat: 17.00 PHT: 74.00 MVA PHT: 2.97 MVA Continuity: 2.73 Decel [place]: 5.95 Aortic Valve AoV Pk Yo: 3.85 AoV Mn Yo: 2.49 AoV VTI: 0.81 AoV Pk Grad: 59.00 Aov Mn Grad: 29.00 TYREL Cont.VTI: 1.29 AI Pk Yo: 4.54 AI [place]: 3.46 LVOT LVOT Pk Yo: 1.59 LVOT Mn Yo: 0.97 LVOT VTI: 0.33 LVOT Pk Grad: 10.00 LVOT Mn Grad: 5.00 LVOT Diam: 2.00 LVOT Area: 3.14 Diastolic Function MV Pk E: 1.50 MV Pk A: 0.97 E/A: 1.50 E'Medial: 4.90 E/E' Med: 30.60 E' Laterial: 8.81 E/E' Lat: 17.00 Right Ventricle TAPSE (mm): 19.50 TVS' Yo: 10.30 Tricuspid Valve TR Pk Yo: 3.45 TR Pk Grad: 48.00 RA Press: 8.00 RVSP: 56.00 Great Vessels Aorta Sinus of Valsalva: 3.43 2.0-3.5 cm Ao Asc: 3.50 2.1-3.4 cm Updated in Other Vendor System with Status of Final Aníbal Mendes MD electronically signed on 07/02/2022 11:47:46 AM with status of Final
== END ==
LOC: HO.CARD 14:39
PROVIDERS: PCP Internal Medicine; Visit Provider Internal Medicine Cardiovascular Disease
DX: I35.0 Nonrheumatic aortic (valve) stenosis (principal)
CPT/HCPCS: 93306

== ENCOUNTER → 2022-08-07 15:10 | Outpatient (BNVA) | payer MEDICARE, OTHER, SELFPAY | PROVIDERS: PCP Internal Medicine; Referring Provider Internal Medicine; Visit Provider Internal Medicine Cardiovascular Disease | DX: I48.0 Paroxysmal atrial fibrillation (principal); I25.10 Atherosclerotic heart disease of native coronary artery without angina pectoris; I35.0 Nonrheumatic aortic (valve) stenosis; Z79.01 Long term (current) use of anticoagulants; Z79.899 Other long term (current) drug therapy; Z45.018 Encounter for adjustment and management of other part of cardiac pacemaker | CPT/HCPCS: 93005; 93280; 99212 ==

== ENCOUNTER 2022-08-14 14:42 | Outpatient (REF) | payer MEDICARE, OTHER, SELFPAY ==
--- NOTE | ~2022-08-14 | XR_ITS ---
EXAMINATION: XR CHEST CLINICAL INFORMATION: Paroxysmal atrial fibrillation COMPARISON: Chest 06/20/2021 TECHNIQUE: 2 views of the chest were obtained. FINDINGS: The lungs are well-expanded and clear of acute process. The heart size and pulmonary vascularity is normal. There is dense mitral valve calcification. There are dual pacer electrodes in right atrium and right ventricle. XR/XR chest 2V IMPRESSION: No acute cardiopulmonary process seen
[2022-08-14 15:15] LABS: Hematocrit 36.7 % (37.0-47.0); Hemoglobin 11.1 g/dl (12.0-16.0); Mean Corpuscular HGB Conc 30.2 g/dl (31.0-35.0); Mean Corpuscular Hemoglobin 25.8 pg (27.0-33.0); Mean Corpuscular Volume 85.2 fL (80.0-98.0); Mean Platelet Volume 9.2 fL (9.4-12.3); Platelet Count 412 X10*3/uL (160-400); Red Blood Count 4.31 X10*6/uL (4.20-5.50); Red Cell Distribution Width 14.9 % (11.0-16.0); White Blood Count 8.3 X10*3/uL (4.8-10.8)
[2022-08-14 15:49] LABS: Alanine Aminotransferase 6 U/L (0-31); Alkaline Phosphatase 126 U/L (39-117); Anion Gap 18 (12-20); Aspartate Amino Transferase 11 U/L (5-31); Bilirubin Direct 0.3 mg/dL (0.0-0.5); Bilirubin Total 0.8 mg/dL (0.0-1.0); Blood Urea Nitrogen 20 mg/dL (9-16); Calcium 8.7 mg/dL (8.4-10.2); Carbon Dioxide 22 mmol/L (22-29); Chloride 103 mmol/L (96-108); Estimated Glomerular Filt Rate 57; Glucose Random 77 mg/dL (60-115); Potassium 4.8 mmol/L (3.3-5.1); Sodium 138 mmol/L (135-145); Total Protein 7.4 g/dL (6.5-8.0)
[2022-08-14 16:11] LABS: TSH reflex Free T4 2.06 uIU/mL (0.32-4.0)
== END 2022-08-14 14:43 | disposition home or self-care (01) ==
LOC: HO.LAB 14:42
PROVIDERS: PCP Internal Medicine; Visit Provider Internal Medicine Cardiovascular Disease
DX: I48.0 Paroxysmal atrial fibrillation (principal)
CPT/HCPCS: 36415; 71046; 80048; 80076; 84443; 85027

== ENCOUNTER 2023-02-03 14:36 | Outpatient (REF) | payer MEDICARE, OTHER, SELFPAY ==
[2023-02-03 17:13] LABS: Anion Gap 15 (12-20); Blood Urea Nitrogen 24 mg/dL (9-16); Calcium 8.5 mg/dL (8.4-10.2); Carbon Dioxide 22 mmol/L (22-29); Chloride 108 mmol/L (96-108); Estimated Glomerular Filt Rate 56; Glucose Random 85 mg/dL (60-115); Potassium 5.2 mmol/L (3.3-5.1); Sodium 140 mmol/L (135-145)
== END 2023-02-03 14:37 | disposition home or self-care (01) ==
LOC: HO.LAB 14:36
PROVIDERS: PCP Internal Medicine; Referring Provider Internal Medicine; Visit Provider Internal Medicine Cardiovascular Disease
DX: I50.30 Unspecified diastolic (congestive) heart failure (principal); I35.0 Nonrheumatic aortic (valve) stenosis; I48.0 Paroxysmal atrial fibrillation; I25.10 Atherosclerotic heart disease of native coronary artery without angina pectoris; I42.2 Other hypertrophic cardiomyopathy
CPT/HCPCS: 36415; 80048; 93005; 93280; 99212

== ENCOUNTER 2023-05-05 14:54 | Emergency (ER) | payer MEDICARE, OTHER, SELFPAY ==
--- NOTE | ~2023-05-05 | XR_ITS ---
EXAMINATION: XR CHEST CLINICAL INFORMATION: Shortness of breath. COMPARISON: 08/14/2022 chest radiographs. TECHNIQUE: Frontal view of the chest was obtained. FINDINGS: Support devices: Left-sided pacemaker device appears in good position. Kyphotic positioning is suboptimal. The lungs are clear. The heart shows coarse mitral annular calcifications. The mediastinal structures are unremarkable. Moderate bilateral glenohumeral degenerative joint changes are seen. XR/XR chest 1V IMPRESSION: No acute cardiopulmonary process.
[2023-05-05 15:00] VITALS: BP 166/90; BP 190/85; PULSE 71; PULSE 82; RESP 18; TEMP 36.3; O2SAT 94; O2SAT 97; BMI 23.6
--- NOTE | 2023-05-05 15:02 | ECG_ITS ---
Test Reason : SOB WITH EXERSION Blood Pressure : / mmHG Vent. Rate : 070 BPM Atrial Rate : 070 BPM P-R Int : 326 ms QRS Dur : 168 ms QT Int : 510 ms P-R-T Axes : 042 079 009 degrees QTc Int : 550 ms Atrial-paced rhythm with prolonged AV conduction Right bundle branch block Abnormal ECG When compared with ECG of 20-JUN-2021 17:21, Electronic atrial pacemaker has replaced Electronic ventricular pacemaker Referred By: Sydnee Sherman Electronically Signed By:Eduardo Humphries
--- NOTE | 2023-05-05 15:06 | ED.SOB ---
HPI - SOB/Dyspnea General Chief Complaint: Dyspnea Stated Complaint: SOB Time Seen by Provider: 05/05/23 14:56 Source: patient and EMS Mode of arrival: EMS Limitations: no limitations History of Present Illness HPI Narrative: Patient comes to the emergency room complaining of shortness of breath. Patient has history of hypertrophic cardiomyopathy, severe aortic stenosis, atrial fibrillation, CHF. The patient states that she has had chronic shortness of breath for close to a year. However, over the last week, it got much worse. Usually patient is able to do her regular activities, walk with her walker. However, over last week, she can barely get across the room before getting significantly short of breath. Today, patient went to see her primary care physician, Dr. Guido, was concerned about the patient's symptoms and instructed the patient to come to the emergency room. Patient denies any chest pain, denies lower extremity edema. Related Data Home Medications Medication Instructions Recorded Confirmed albuterol sulfate 90 mcg/actuation 2 puff PO Q4H PRN Shortness Of 12/17/20 02/03/23 aerosol inhaler Breath montelukast 10 mg tablet 10 mg PO DAILY 12/17/20 02/03/23 rivaroxaban 20 mg tablet 20 mg PO DAILY 12/17/20 02/03/23 furosemide 40 mg tablet (Lasix) 20 mg PO QAM 08/07/22 02/03/23 Previous Rx's Medication Instructions Recorded verapamil 80 mg tablet 160 mg PO BID #360 tabs 07/21/22 amiodarone 200 mg tablet 200 mg PO DAILY #90 tabs 10/20/22 nirmatrelvir 300 mg (150 mg See Rx Instructions PO .COMPLEX 05/05/23 x2)-ritonavir 100 mg tablet,dose #30 ea pack (Paxlovid) Allergies Allergy/AdvReac Type Severity Reaction Status Date / Time latex Allergy Mild Redness of Verified 05/05/23 15:07 Skin seasonal Allergy Mild Itchy Eyes Uncoded 02/13/22 15:24 Review of Systems Review of Systems: Constitutional : No Weight loss, No Fever, No Chills, No Night Sweats, No Fatigue, No Malaise ENT/Mouth : No Hearing loss, No Ear Pain, No Nasal Congestion, No Sinus Pain, No Hoarseness, No sore throat, No Rhinorrhea, No Swallowing Difficulty Eyes: No Eye Pain, No Swelling, No Redness, No Foreign Body, No Discharge, No Vision Changes Cardiovascular : No Chest Pain, shortness of breath with exertion, no orthopnea Respiratory : No Cough, No Sputum, No Wheezing, No Smoke Exposure, No Dyspnea Gastrointestinal : No Nausea, No Vomiting, No Diarrhea, No Constipation, No abdominal Pain, No Hematochezia, No Melena Genitourinary : no irregular bleeding, No Dysuria, No Urinary Frequency, No Hematuria, No Urinary Incontinence, No Urgency, No Flank Pain, No Urinary Flow Changes, No Hesitancy Musculoskeletal : No joint pain, No Myalgias, No Joint Swelling Skin : No Skin Lesions, No rash Neuro : No Weakness, No Numbness, No Paresthesias, No Loss of Consciousness, No Dizziness, No Headache Psych : No Anxiety/Panic, No Depression, No SI/HI/AH/VH, No Social Issues, Heme/Lymph: No Bruising, No Bleeding,No Lymphadenopathy Endocrine : No Polyuria, No Polydipsia, No Temperature Intolerance FOR[facility]LY [facility] Past Medical History Medical History (Updated 05/05/23 @ 19:18 by Sydnee Sherman MD) (HFpEF) heart failure with preserved ejection fraction Anemia Aortic stenosis Asthma CAD (coronary artery disease) Cardiac pacemaker in situ (~2013) Cervical disc disorder Congestive heart failure Edema, peripheral History of blood transfusion History of complete heart block History of DVT (deep vein thrombosis) History of GI bleed Hx of pulmonary embolus Hypertrophic cardiomyopathy Non-rheumatic aortic stenosis Obesity Paroxysmal atrial fibrillation Personal history of COVID-19 Pulmonary hypertension Surgical History History of cardiac cath History of cardioversion History of elbow surgery History of heart surgery History of permanent cardiac pacemaker placement Family History Family History Father No problems noted. Mother CVD (cardiovascular disease) Social History Social History Household Members: Children Household Members Other:: son Housing: House Are you a primary healthcare educator to a significant other at home: No Do you presently have visiting nurse or other home services: No Alcohol intake: current Alcohol intake frequency: a few times a week Alcohol type: wine Patient Tobacco Use Status: Former Tobacco user Quit Date: 40 yrs ago Tobacco use type: Cigarette Smoked in Last 30 Days: No Second Hand Smoke Exposure: No Use of substances other than those prescribed or required for medical reasons: No Advance Directives: No Advance Directives Information Provided: Yes service: No Current occupational status: employed Physical Exam Vital Signs: Vital Signs: Last Vital Signs Temp 97.7 F 05/05/23 17:26 Pulse 84 05/05/23 15:32 Resp 15 05/05/23 17:26 BP 181/93 H 05/05/23 17:26 Pulse Ox 95 05/05/23 17:26 O2 Del Method Room Air 05/05/23 17:26 BMI result Body Mass Index 23.6 Medical Decision Making Medical Decision Making MDM Narrative: -patient tested positive for COVID-19. Patient states that her symptoms really increased over the last 3 days with shortness of breath. -oxygen saturation 97%, when patient walks, oxygen remains at 95%. -I did consider admitting the patient given her multiple cardiac comorbidities I discussed the patient with Dr. Lyn who also accepted the patient. However, patient would like to be discharged home -Patient being discharged per her request, patient's son at bedside who is the healthcare proxy, agrees with his mother's plan. -Paxil but has been sent to the patient's pharmacy -patient and her son instructed to return if patient has any new symptoms or worsening symptoms. Admission/Observation Consideration of admission/observation: Escalation of care including admission/observation considered Consult Healthcare Provider Management of the patient was discussed with: Hospitalist Lab Data [facility] Lab Attestation statement: I reviewed the patient's lab results. 05/05/23 15:49 05/05/23 15:49 Labs: Lab Results 05/05/23 05/05/23 05/05/23 Range/Units 15:49 15:49 15:49 WBC 5.8 (4.8-10.8) X10*3/uL RBC 4.18 L (4.20-5.50) X10*6/uL Hgb 10.4 L (12.0-16.0) g/dl Hct 35.0 L (37.0-47.0) % MCV 83.7 (80.0-98.0) fL MCH 24.9 L (27.0-33.0) pg MCHC 29.7 L (31.0-35.0) g/dl RDW 16.6 H (11.0-16.0) % Plt Count 323 (160-400) X10*3/uL MPV 8.6 L (9.4-12.3) fL Immature Gran % (Auto) 0.3 (0.0-0.4) % Neut % (Auto) 84.2 H (45-73) % Lymph % (Auto) 6.6 L (20-40) % [place] % (Auto) 8.1 (2-11) % Eos % (Auto) 0.3 (0-4) % Baso % (Auto) 0.5 (0-2) % Lymph # (Auto) 0.4 L (1.2-4.9) X10*3/uL [place] # (Auto) 0.5 (0.1-1.2) X10*3/uL Eos # (Auto) 0.0 (0.0-0.4) X10*3/uL Baso # (Auto) 0.0 (0.0-0.2) X10*3/uL Abs Immat Gran (auto) 0.02 (0.00-0.03) X10*3/uL Absolute Neuts (auto) 4.9 (2.0-8.3) x10*3/uL Absolute Nucleated RBC 0.000 (0.0-0.012) X10*3/uL Nucleated RBC % (auto) 0.0 (0.0-0.2) /100WBC PT (10.0-13.1) SEC INR (0.9-1.1) VBG pH (7.32-7.43) VBG pCO2 mmHg VBG pO2 mmHg VBG HCO3 (22-26) mmol/L VBG O2 Saturation % VBG Base Excess mmol/L Sodium 143 (135-145) mmol/L Potassium 4.1 D (3.3-5.1) mmol/L Chloride 110 H (96-108) mmol/L Carbon Dioxide 23 (22-29) mmol/L Anion Gap 14 (12-20) BUN 18 H (9-16) mg/dL Creatinine 0.81 (0.5-1.4) mg/dL Estim Creat Clear Calc 56.5 Estimated GFR > 60 Random Glucose 113 (60-115) mg/dL Calcium 9.3 D (8.4-10.2) mg/dL Magnesium 2.2 (1.6-2.6) mg/dL Total Bilirubin 1.0 (0.0-1.0) mg/dL Direct Bilirubin 0.3 (0.0-0.5) mg/dL AST 10 (5-31) U/L ALT 7 (0-31) U/L Alkaline Phosphatase 149 H (39-117) U/L Troponin I High Sens 8.0 (<3.5-17.0) ng/L B-Natriuretic Peptide (<100) pg/mL Total Protein 7.5 (6.5-8.0) g/dL Albumin 3.9 (3.5-5.0) g/dL COVID-19 (BRIANNA) (Negative) COVID-19 Clin Com 05/05/23 05/05/23 05/05/23 Range/Units 15:49 15:49 15:49 WBC (4.8-10.8) X10*3/uL RBC (4.20-5.50) X10*6/uL Hgb (12.0-16.0) g/dl Hct (37.0-47.0) % MCV (80.0-98.0) fL MCH (27.0-33.0) pg MCHC (31.0-35.0) g/dl RDW (11.0-16.0) % Plt Count (160-400) X10*3/uL MPV (9.4-12.3) fL Immature Gran % (Auto) (0.0-0.4) % Neut % (Auto) (45-73) % Lymph % (Auto) (20-40) % [place] % (Auto) (2-11) % Eos % (Auto) (0-4) % Baso % (Auto) (0-2) % Lymph # (Auto) (1.2-4.9) X10*3/uL [place] # (Auto) (0.1-1.2) X10*3/uL Eos # (Auto) (0.0-0.4) X10*3/uL Baso # (Auto) (0.0-0.2) X10*3/uL Abs Immat Gran (auto) (0.00-0.03) X10*3/uL Absolute Neuts (auto) (2.0-8.3) x10*3/uL Absolute Nucleated RBC (0.0-0.012) X10*3/uL Nucleated RBC % (auto) (0.0-0.2) /100WBC PT 17.3 H (10.0-13.1) SEC INR 1.5 H (0.9-1.1) VBG pH (7.32-7.43) VBG pCO2 mmHg VBG pO2 mmHg VBG HCO3 (22-26) mmol/L VBG O2 Saturation % VBG Base Excess mmol/L Sodium (135-145) mmol/L Potassium (3.3-5.1) mmol/L Chloride (96-108) mmol/L Carbon Dioxide (22-29) mmol/L Anion Gap (12-20) BUN (9-16) mg/dL Creatinine (0.5-1.4) mg/dL Estim Creat Clear Calc Estimated GFR Random Glucose (60-115) mg/dL Calcium (8.4-10.2) mg/dL Magnesium (1.6-2.6) mg/dL Total Bilirubin (0.0-1.0) mg/dL Direct Bilirubin (0.0-0.5) mg/dL AST (5-31) U/L ALT (0-31) U/L Alkaline Phosphatase (39-117) U/L Troponin I High Sens (<3.5-17.0) ng/L B-Natriuretic Peptide 215 H (<100) pg/mL Total Protein (6.5-8.0) g/dL Albumin (3.5-5.0) g/dL COVID-19 (BRIANNA) Positive A (Negative) COVID-19 Clin Com See Note 05/05/23 Range/Units 15:52 WBC (4.8-10.8) X10*3/uL RBC (4.20-5.50) X10*6/uL Hgb (12.0-16.0) g/dl Hct (37.0-47.0) % MCV (80.0-98.0) fL MCH (27.0-33.0) pg MCHC (31.0-35.0) g/dl RDW (11.0-16.0) % Plt Count (160-400) X10*3/uL MPV (9.4-12.3) fL Immature Gran % (Auto) (0.0-0.4) % Neut % (Auto) (45-73) % Lymph % (Auto) (20-40) % [place] % (Auto) (2-11) % Eos % (Auto) (0-4) % Baso % (Auto) (0-2) % Lymph # (Auto) (1.2-4.9) X10*3/uL [place] # (Auto) (0.1-1.2) X10*3/uL Eos # (Auto) (0.0-0.4) X10*3/uL Baso # (Auto) (0.0-0.2) X10*3/uL Abs Immat Gran (auto) (0.00-0.03) X10*3/uL Absolute Neuts (auto) (2.0-8.3) x10*3/uL Absolute Nucleated RBC (0.0-0.012) X10*3/uL Nucleated RBC % (auto) (0.0-0.2) /100WBC PT (10.0-13.1) SEC INR (0.9-1.1) VBG pH 7.40 (7.32-7.43) VBG pCO2 46 mmHg VBG pO2 59 mmHg VBG HCO3 29 H (22-26) mmol/L VBG O2 Saturation 85.0 % VBG Base Excess 3.7 mmol/L Sodium (135-145) mmol/L Potassium (3.3-5.1) mmol/L Chloride (96-108) mmol/L Carbon Dioxide (22-29) mmol/L Anion Gap (12-20) BUN (9-16) mg/dL Creatinine (0.5-1.4) mg/dL Estim Creat Clear Calc Estimated GFR Random Glucose (60-115) mg/dL Calcium (8.4-10.2) mg/dL Magnesium (1.6-2.6) mg/dL Total Bilirubin (0.0-1.0) mg/dL Direct Bilirubin (0.0-0.5) mg/dL AST (5-31) U/L ALT (0-31) U/L Alkaline Phosphatase (39-117) U/L Troponin I High Sens (<3.5-17.0) ng/L B-Natriuretic Peptide (<100) pg/mL Total Protein (6.5-8.0) g/dL Albumin (3.5-5.0) g/dL COVID-19 (BRIANNA) (Negative) COVID-19 Clin Com Radiology Impression Discussion of test interpretation with radiology: I have reviewed the radiologist's reading. Radiologist Impression: FINDINGS: Support devices: Left-sided pacemaker device appears in good position. Kyphotic positioning is suboptimal. The lungs are clear. The heart shows coarse mitral annular calcifications. The mediastinal structures are unremarkable. Moderate bilateral glenohumeral degenerative joint changes are seen. XR/XR chest 1V IMPRESSION: No acute cardiopulmonary process. ? Discharge Plan Discharge Clinical Impression: COVID-19 Patient Disposition: Home, Self-Care Instructions: COVID-19 (Coronavirus Disease 2019) (ED) Additional Instructions: Please follow-up with your primary care physician tomorrow. If you have any worsening or new symptoms, please return to the emergency room or call 911 Prescriptions: New Paxlovid 300 mg (150 mg x 2)-100 mg tablets,dose pack See Rx Instructions .ROUTE .COMPLEX Qty: 30 0RF Rx Instructions: take TWO 150 mg tablets of nirmatrelvir with ONE 100 mg tablet of ritonavir twice daily for 5 days No Action verapamil 80 mg tablet 160 mg PO BID Qty: 360 3RF amiodarone 200 mg tablet 200 mg PO DAILY Qty: 90 3RF albuterol sulfate 90 mcg/actuation HFA aerosol inhaler 2 puff PO Q4H PRN (Reason: Shortness Of Breath) rivaroxaban 20 mg tablet 20 mg PO DAILY montelukast 10 mg tablet 10 mg PO DAILY furosemide [Lasix] 40 mg tablet 20 mg PO QAM
[2023-05-05 15:15] VITALS: BP 190/85; PULSE 70; RESP 18; TEMP 36.6; O2SAT 95
[2023-05-05 15:32] VITALS: PULSE 84; RESP 20; O2SAT 95
--- NOTE | 2023-05-05 15:40 | PC.NURSE ---
pt a&ox3. pt reports shortness of breath with equal respirations and diminished bases. vs stable. o2 sat between 93-95% upon walking. skin pink, warm and dry. denies pain.
[2023-05-05 15:58] LABS: MANUAL DIFF FLAG NO
[2023-05-05 15:59] LABS: Basophils Percent Auto 0.5 % (0-2); Eosinophils Percent Auto 0.3 % (0-4); Hemoglobin 10.4 g/dl (12.0-16.0); Imm Gran Abs Auto 0.02 X10*3/uL (0.00-0.03); Imm Gran Pct Auto 0.3 % (0.0-0.4); Lymphocytes Absolute Auto 0.4 X10*3/uL (1.2-4.9); Lymphocytes Percent Auto 6.6 % (20-40); Mean Corpuscular HGB Conc 29.7 g/dl (31.0-35.0); Mean Corpuscular Hemoglobin 24.9 pg (27.0-33.0); Mean Corpuscular Volume 83.7 fL (80.0-98.0); Mean Platelet Volume 8.6 fL (9.4-12.3); Monocytes Absolute Auto 0.5 X10*3/uL (0.1-1.2); Monocytes Percent Auto 8.1 % (2-11); Neutrophils Absolute Auto 4.9 x10*3/uL (2.0-8.3); Neutrophils Percent Auto 84.2 % (45-73); Platelet Count 323 X10*3/uL (160-400); Red Blood Count 4.18 X10*6/uL (4.20-5.50); Red Cell Distribution Width 16.6 % (11.0-16.0); White Blood Count 5.8 X10*3/uL (4.8-10.8)
[2023-05-05 16:04] LABS: VBG Base Excess 3.7 mmol/L; VBG HCO3 29 mmol/L (22-26); VBG pCO2 46 mmHg; VBG pO2 59 mmHg
[2023-05-05 16:08] LABS: INTERNATIONAL NORM RATIO 1.5 (0.9-1.1); Prothrombin Time 17.3 SEC (10.0-13.1)
[2023-05-05 16:09] LABS: COVID-19 Test Positive (Negative); IDNOW Serial# BCCEAD1C
[2023-05-05 16:16] LABS: Alanine Aminotransferase 7 U/L (0-31); Albumin Level 3.9 g/dL (3.5-5.0); Alkaline Phosphatase 149 U/L (39-117); Anion Gap 14 (12-20); Aspartate Amino Transferase 10 U/L (5-31); Bilirubin Direct 0.3 mg/dL (0.0-0.5); Blood Urea Nitrogen 18 mg/dL (9-16); Calcium 9.3 mg/dL (8.4-10.2); Carbon Dioxide 23 mmol/L (22-29); Chloride 110 mmol/L (96-108); Creatinine Clr Calc Pharmacy 56.5; Estimated Glomerular Filt Rate > 60; Glucose Random 113 mg/dL (60-115); Magnesium 2.2 mg/dL (1.6-2.6); Potassium 4.1 mmol/L (3.3-5.1); Sodium 143 mmol/L (135-145); Total Protein 7.5 g/dL (6.5-8.0)
[2023-05-05 16:23] LABS: B Type Natriuretic Peptide 215 pg/mL (<100)
[2023-05-05 16:36] LABS: Venous Blood Gas Refer to POC result
[2023-05-05 17:26] VITALS: BP 181/93; RESP 15; TEMP 36.5; O2SAT 95
[2023-05-05 20:00] VITALS: PULSE 72; O2SAT 96
[2023-05-05] MEDS: Labetalol HCL 100 MG TABLET PO (20:18)
--- NOTE | 2023-05-05 20:19 | PC.NURSE ---
pt hypertensive 215/97. MD made aware and ordered labetalol. medicated per JAN. will discharge pt per MD and instructed to follow up with primary care.
== END 2023-05-05 20:36 | disposition home or self-care (01) ==
PROVIDERS: Emergency Provider Emergency Medicine
DX: U07.1 COVID-19 (principal); R06.02 Shortness of breath; Z79.899 Other long term (current) drug therapy
CPT/HCPCS: 36415; 71045; 80048; 80076; 82803; 83735; 83880; 84484; 85025; 85610; 87635; 93005; 99284

== ENCOUNTER → 2023-06-17 23:59 | Outpatient (BNV) | payer MEDICARE, OTHER, SELFPAY ==
--- NOTE | 2023-06-22 11:05 | MHC.OFFVIS ---
Intake Intake Visit Reasons: Remote pacer monitoring- [employer] Allergies latex Allergy (Mild, Verified 05/05/23 15:07) Redness of Skin seasonal Allergy (Mild, Uncoded 02/13/22 15:24) Itchy Eyes PFSH Medical History (Updated 05/05/23 @ 19:18 by Sydnee Sherman MD) (HFpEF) heart failure with preserved ejection fraction Anemia Aortic stenosis Asthma CAD (coronary artery disease) Cardiac pacemaker in situ (~2013) Cervical disc disorder Congestive heart failure Edema, peripheral History of blood transfusion History of complete heart block History of DVT (deep vein thrombosis) History of GI bleed Hx of pulmonary embolus Hypertrophic cardiomyopathy Non-rheumatic aortic stenosis Obesity Paroxysmal atrial fibrillation Personal history of COVID-19 Pulmonary hypertension Surgical History History of cardiac cath History of cardioversion History of elbow surgery History of heart surgery History of permanent cardiac pacemaker placement Family History Father No problems noted. Mother CVD (cardiovascular disease) Social History Household Members: Children Household Members Other:: son Housing: House Are you a primary care services manager to a significant other at home: No Do you presently have visiting nurse or other home services: No Alcohol intake: current Alcohol intake frequency: a few times a week Alcohol type: wine Patient Tobacco Use Status: Former Tobacco user Quit Date: 40 yrs ago Tobacco use type: Cigarette Second Hand Smoke Exposure: No service: No Current occupational status: employed Office Procedures Cardiac Device Check Cardiac Device Check Details: Remote pacemaker report generated 06/17/2023. Pacemaker function is adequate. Total burden of atrial fibrillation 6.5% [id number] Cardiac Device Interrogation, pacemaker Procedure code (CPT) selection complete Coding Level of Care Code Procedure Only Diagnoses CPT Codes Cardiac Device Check - Cardiac Device 12: [id number] Cardiac Device Interrogation, pacemaker ([id number])
== END ==
PROVIDERS: Visit Provider Internal Medicine Cardiovascular Disease
DX: I48.0 Paroxysmal atrial fibrillation (principal); Z95.0 Presence of cardiac pacemaker
CPT/HCPCS: 93294

== ENCOUNTER → 2023-07-15 14:40 | Outpatient (REF) | payer MEDICARE, OTHER, SELFPAY ==
--- NOTE | 2023-07-15 14:43 | CA_ITS ---
Transthoracic Echocardiogram Patient (Last, First, Middle): Sophie Schulz E Gender: Female Date of : 1945 Age: 77 Procedure Date: 07/15/2023 Procedure Type: Transthoracic Echocardiogram Location: OP Height: 172.72 cm Weight: 68.04 kg BSA: 1.81 m2 Heart Rate: bpm BP: 118 / 78 mmHg Receptionist/Telephone Operator: TO Referring MD: Ankit Stuart MD Register Of Wills: Ankit Stuart MD Symptoms: I35.0 - Nonrheumatic aortic (valve) stenosis Study Quality: Fair Conclusions: - 1. Normal LV ejection fraction of 55-60% with moderate LVH with grade 2 diastolic dysfunction 2. Biatrial enlargement, left atrium is severely dilated 3. Moderate aortic stenosis and mild aortic regurgitation 4. Moderate mitral and moderately severe tricuspid regurgitation 5. Moderately elevated red for the systolic pressure was significantly elevated right atrial pressures 6. No gross pericardial effusion Findings Left Ventricle Normal left ventricular size and systolic function. There is moderately increased left ventricular wall thickness. The visually estimated ejection fraction is between 55-60%. Spectral Doppler is indicative of a pseudonormal filling pattern. E/E prime ratio is >15, consistent with elevated filling pressures. Evidence suggests grade II (moderate) diastolic dysfunction. Right Ventricle Mildly increased right ventricular cavity size. There is low normal right ventricular systolic function. There is a pacemaker wire seen in the right ventricle. Atria The left atrium is severely dilated. There is lipomatous hypertrophy of the interatrial septum. Interatrial shunt cannot be excluded. The right atrium is moderately dilated. A pacemaker wire is identified in the right atrium. Aortic Valve There is mild calcification of the aortic valve. There is moderate thickening of the aortic valve. There is moderate aortic valve stenosis. The peak aortic gradient is 42 mmHg.The mean gradient is 26 mmHg. The aortic valve area is 1.28 cm2. There is mild aortic valve regurgitation. Mitral Valve There is moderate anterior and severe posterior mitral leaflet thickening. The posterior mitral leaflet is immobile. There is mild anterior mitral annular calcification. There is severe mitral annular calcification. There is moderate mitral valve regurgitation. There is no mitral valve stenosis. Pulmonic Valve The pulmonic valve is likely normal. There is mild pulmonic valve regurgitation. Tricuspid Valve Normal tricuspid valve structure. There is moderate to severe tricuspid valve regurgitation. Significantly elevated right atrial pressure. Moderate pulmonary hypertension is present. Great Vessels The pulmonary artery was not well visualized. There is no dilatation of the ascending aorta. Venous The inferior vena cava is severely dilated and collapses less than 50% with inspiration. Pericardium/Pleural There is no evidence of pericardial effusion. Prior Study Comparison No significant change compared to prior study dated: 07/01/2022. Measurements 2D Linear Measurements IVSd: 1.40 0.6-0.9/0.6-1.0 cm LVIDd: 5.20 3.9-5.3/4.2-5.9 cm LVIDd Index: 2.87 2.4-3.2/2.2-3.1 cm/m2 LVIDs: 3.20 2.0-3.6 cm LVPWd: 1.10 0.7-1.1 cm LA Diam: 4.70 2.7-3.8/3.0-4.0 cm LAIDs Index: 2.60 1.5-2.3 cm/m2 LV Mass: 328.56 67-162/88-224 g LV Mass Index: 181.53 43-95/49-115 g/m2 LVOT Diam: 2.20 3.0+(-)1.3 cm 2D Systolic Function EF 4C: 57.70 >55% Mitral Valve MV VTI: 0.40 MV Pk Yo: 1.49 MV Mn Yo: 0.87 MV Pk Grad: 9.00 MV Mn Grad: 4.00 MV Pk E: 1.37 MV PK A: 0.61 MV Decel Time: 221.00 E/A: 2.30 E'Lateral: 7.29 E'Medial: 4.79 E/E' Med: 28.60 E/E' Lat: 18.80 PHT: 65.00 MVA PHT: 3.38 MVA Continuity: 2.28 Decel Davison: 6.19 MR VTI: 2.11 Aortic Valve AoV Pk Yo: 3.24 AoV Mn Yo: 2.42 AoV VTI: 0.71 AoV Pk Grad: 42.00 Aov Mn Grad: 26.00 TYREL Cont.VTI: 1.28 AI Pk Yo: 4.63 AI Davison: 3.13 LVOT LVOT Pk Yo: 1.19 LVOT Mn Yo: 0.76 LVOT VTI: 0.24 LVOT Pk Grad: 6.00 LVOT Mn Grad: 3.00 LVOT Diam: 2.20 LVOT Area: 3.80 Diastolic Function MV Pk E: 1.37 MV Pk A: 0.61 E/A: 2.30 E'Medial: 4.79 E/E' Med: 28.60 E' Laterial: 7.29 E/E' Lat: 18.80 Right Ventricle TAPSE (mm): 18.00 TVS' Yo: 10.20 Tricuspid Valve TR Pk Yo: 3.06 TR Pk Grad: 37.00 RA Press: 15.00 RVSP: 52.00 Great Vessels Aorta Sinus of Valsalva: 3.40 2.0-3.5 cm Ao Asc: 3.40 2.1-3.4 cm Updated in Other Vendor System with Status of Final Ankit Stuart MD electronically signed on 07/16/2023 10:28:10 AM with status of Final
== END ==
LOC: HO.CARD 14:40
PROVIDERS: Visit Provider Internal Medicine Cardiovascular Disease
DX: I35.0 Nonrheumatic aortic (valve) stenosis (principal)
CPT/HCPCS: 93306

== ENCOUNTER → 2023-07-15 14:43 | Outpatient (BNV) | payer MEDICARE, OTHER, SELFPAY | PROVIDERS: Visit Provider Internal Medicine Cardiovascular Disease | DX: I35.2 Nonrheumatic aortic (valve) stenosis with insufficiency (principal) | CPT/HCPCS: 93306 ==

== ENCOUNTER 2023-07-21 11:56 | Outpatient (REF) | payer MEDICARE, OTHER, SELFPAY ==
[2023-07-21 13:11] LABS: B Type Natriuretic Peptide 184 pg/mL (<100)
[2023-07-21 13:17] LABS: Anion Gap 15 (12-20); Blood Urea Nitrogen 16 mg/dL (9-16); Calcium 9.3 mg/dL (8.4-10.2); Carbon Dioxide 21 mmol/L (22-29); Chloride 106 mmol/L (96-108); Estimated Glomerular Filt Rate 58; Glucose Random 97 mg/dL (60-115); Potassium 4.2 mmol/L (3.3-5.1); Sodium 138 mmol/L (135-145)
== END 2023-07-21 11:57 | disposition home or self-care (01) ==
LOC: HO.LAB 11:56
PROVIDERS: Visit Provider Internal Medicine Cardiovascular Disease
DX: I42.2 Other hypertrophic cardiomyopathy (principal); I50.30 Unspecified diastolic (congestive) heart failure; I35.0 Nonrheumatic aortic (valve) stenosis
CPT/HCPCS: 36415; 80048; 83880

== ENCOUNTER 2023-08-06 13:47 | Outpatient (AMB) | payer MEDICARE, OTHER, SELFPAY ==
[2023-08-06 14:10] VITALS: BP 134/80; PULSE 59; BMI 22.4
--- NOTE | 2023-08-06 14:10 | MHC.OFFVIS ---
Intake Vital Signs 08/06/23 14:10 Height 5 ft 7 in Weight 143 lb 4.807 oz BMI 22.4 BP 134/80 Blood Pressure Location Lt brachial Position Sitting Pulse 59 Intake Visit Reasons: 6 MON FUP + EKG + MEDTRONIC Intake Note: 6 month follow-up with ekg and medtronic check hearts been ok had covid in Jun Fine Arts Instructor Required: No Allergies latex Allergy (Mild, Verified 05/05/23 15:07) Redness of Skin seasonal Allergy (Mild, Uncoded 02/13/22 15:24) Itchy Eyes HPI HPI Comments History of Present Illness Details Silvia comes for follow-up. She feels very weak overall. About couple months ago she suffered from COVID and was treated at home. Since then she says she has had trouble walking long distances. Feels weakness in her legs. Denies any cardiac symptoms except for sometimes when she feels atrial fibrillation with symptoms of palpitations and shortness of breath and fatigue. No lightheadedness, syncope. No bleeding issues or neurologic events pain no orthopnea, PND, leg swelling. No exertional chest pain. [facility] Medical History History of complete heart block History of blood transfusion History of GI bleed Personal history of COVID-19 Cervical disc disorder Hx of pulmonary embolus History of DVT (deep vein thrombosis) Anemia Asthma Non-rheumatic aortic stenosis Edema, peripheral Congestive heart failure Hypertrophic cardiomyopathy Pulmonary hypertension Obesity Paroxysmal atrial fibrillation Cardiac pacemaker in situ (~2013) CAD (coronary artery disease) Aortic stenosis (HFpEF) heart failure with preserved ejection fraction Surgical History History of cardiac cath History of heart surgery History of elbow surgery History of cardioversion History of permanent cardiac pacemaker placement Family History Father No problems noted. Mother CVD (cardiovascular disease) Social History Household Members: Children Household Members Other:: son Housing: House Are you a primary home care provider to a significant other at home: No Do you presently have visiting nurse or other home services: No Alcohol intake: current Alcohol intake frequency: a few times a week Alcohol type: wine Patient Tobacco Use Status: Former Tobacco user Quit Date: 40 yrs ago Tobacco use type: Cigarette Second Hand Smoke Exposure: No service: No Current occupational status: employed Review of Systems Const Denies chills, Denies fatigue, Denies fever(s), Denies frequent falls, Denies weakness, Denies weight gain and Denies weight loss ENT Denies dizziness Card Denies chest pain, Denies leg edema, Denies lightheadedness, Denies palpitations, Denies dyspnea, Denies dyspnea on exertion, Denies orthopnea and Denies other (loss of consciousness) Resp Denies cough, Denies dyspnea and Denies dyspnea on exertion GI Denies hematochezia and Denies change in stool character Musc Denies abnormal gait, Denies muscle weakness, Denies numbness, Denies radiating pain into limb and Denies tingling Neuro Denies abnormal gait, Denies dizziness, Denies frequent falls, Denies numbness, Denies tingling and Denies weakness Endo Denies fatigue and Denies palpitations Physical Exam Vital Signs: Last Vital Signs Pulse 59 08/06/23 14:10 BP 134/80 08/06/23 14:10 BMI result Body Mass Index 22.4 Const General: cooperative, comfortable, no acute distress, alert, awake, in distress moderate and respiratory, poor hygiene and tired appearing Nutritional Appearance: other (Frail appearing) Orientation/consciousness: patient oriented x3 Limitations: ambulation with walker Neck Neck: Yes trachea midline, Yes supple and Yes no JVD Chest Chest palpation & inspection: normal inspection of the chest Resp Effort & Inspection: normal respiratory effort Auscultation: clear to auscultation bilaterally, no rales, no wheezes and diminished lung sounds Cardio Jugular venous distension: no JVD Rate: regular rate Rhythm: regular rhythm Heart sounds: S1 normal heart sound present, S2 normal heart sound present, Murmur heart sound present systolic late, decrescendo, crescendo, III/ and at the right sternal border and Other heart sounds present (S4) GI Auscultation: normal bowel sounds Skin General skin exam: no rashes or lesions noted Neuro General: patient oriented x3 and no focal motor deficits Extrem General: No clubbing, No cyanosis and No edema Psych Appearance: grossly normal Office Procedures Cardiac Device Check Cardiac Device Check Details: Dual-chamber Medtronic pacemaker in place. Programmed in MVP mode with rate response at 70 beats per minute. Atrial pacing 95% of time. Episodes of atrial fibrillation with total burden of 5%. Atrial pacing thresholds adequate and reprogrammed to enhance battery life. Ventricular pacing thresholds adequate and reprogrammed to provide adequate safety. Ventricular sensing was adequate. Pacing lead impedance is stable. Battery life is about 9 years [id number] Cardiac Device Check, pacemaker dual lead Procedure code (CPT) selection complete EKG Details: EKG shows atrially paced, ventricularly sensed rhythm with right bundle-branch block 24037-[id number], Complete Assessment & Plan Assessment & Plan (1) (HFpEF) heart failure with preserved ejection fraction: Code(s): I50.30 - Unspecified diastolic (congestive) heart failure Plan: Patient prior history of heart failure preserved ejection fraction especially in setting of atrial fibrillation. Currently doing well clinically with rhythm control approach. Currently euvolemic and well compensated. Continue current furosemide dose. Daily weight monitoring avoidance of salt loading was discussed. She understands agrees. Maintain activity level as tolerated. (2) CAD (coronary artery disease): Code(s): I25.10 - Atherosclerotic heart disease of [place] coronary artery without angina pectoris Plan: CAD with prior stenting. No recent symptoms of angina. No further workup indicated. Continue aggressive vascular risk factor modification. Blood pressure is well optimized. Target goal blood pressure less than 130/84. Should consider statin therapy with target goal LDL less than 70 mg/dL. Currently on full oral anticoagulation with Xarelto and with therefore avoid antiplatelet agent to reduce bleeding (3) Paroxysmal atrial fibrillation: Code(s): I48.0 - Paroxysmal atrial fibrillation Plan: Paroxysmal atrial fibrillation with symptoms and still having intermittent episodes of atrial fibrillation 5% time. Has done very well with rhythm control approach will continue pursue rhythm with approach with amiodarone therapy. Continue concomitant verapamil therapy as well. Avoidance of stimulants was discussed. Status post ablation in the past. Currently on full oral anticoagulation with Xarelto. Continue the same. Semi annual renal function test is recommended. (4) Cardiac pacemaker in situ: Onset Date: ~2013 Comment: (Medtronic DCPP - placed 2013, generator change 02/2022) Code(s): Z95.0 - Presence of cardiac pacemaker Plan: Cardiac pacemaker in-situ for sick sinus syndrome. Pacemaker is working well. Reprogrammed for adequate function. Follow-up remotely in 3 months time. Follow up in the clinic in 6 months time. (5) Hypertrophic cardiomyopathy: Comment: Status post alcohol septal ablation Code(s): I42.2 - Other hypertrophic cardiomyopathy Plan: Hypertrophic cardiomyopathy status post ablation with alcohol to the septal branch. Has done well since then. Will continue monitor clinically. No other interventions required at this point in time. (6) Aortic stenosis: Comment: (moderate) Code(s): I35.0 - Nonrheumatic aortic (valve) stenosis Plan: Aortic stenosis which is moderate and remained stable. Has concomitant moderate tricuspid regurgitation and mitral regurgitation. Continue medical management. No interventions required. Will continue monitor clinically every 6 months and follow up annually with echocardiogram continue aggressive risk factor modification. Follow up in the clinic in 6 months time, sooner p.r.n.. Greater than 40 minutes was spent in managing her complex care. Coding Level of Care Code Est Pt Level 5 (96440) Diagnoses (HFpEF) heart failure with preserved ejection fraction I50.30 CAD (coronary artery disease) I25.10 Paroxysmal atrial fibrillation I48.0 Cardiac pacemaker in situ Z95.0 Hypertrophic cardiomyopathy I42.2 Aortic stenosis I35.0 CPT Codes Cardiac Device Check - Cardiac Device 2: [id number] Cardiac Device Check, pacemaker dual lead ([id number]) EKG - CPT: 37069-[id number], Complete ([id number])
== END 2023-08-06 14:33 | disposition home or self-care (01) ==
PROVIDERS: Visit Provider Internal Medicine Cardiovascular Disease
DX: I50.30 Unspecified diastolic (congestive) heart failure (principal); I25.10 Atherosclerotic heart disease of native coronary artery without angina pectoris; I48.0 Paroxysmal atrial fibrillation; Z95.0 Presence of cardiac pacemaker; I42.2 Other hypertrophic cardiomyopathy; I35.0 Nonrheumatic aortic (valve) stenosis
CPT/HCPCS: 93280; 99215

== ENCOUNTER → 2023-08-06 13:47 | Outpatient (BNVA) | payer MEDICARE, OTHER, SELFPAY | PROVIDERS: Visit Provider Internal Medicine Cardiovascular Disease | DX: I50.30 Unspecified diastolic (congestive) heart failure (principal); I25.10 Atherosclerotic heart disease of native coronary artery without angina pectoris; I48.0 Paroxysmal atrial fibrillation; I42.2 Other hypertrophic cardiomyopathy; I35.0 Nonrheumatic aortic (valve) stenosis; Z79.01 Long term (current) use of anticoagulants; Z79.899 Other long term (current) drug therapy; Z95.0 Presence of cardiac pacemaker | CPT/HCPCS: 93005; 93280; 99212 ==

== ENCOUNTER → 2023-09-15 23:59 | Outpatient (BNV) | payer MEDICARE, OTHER, SELFPAY ==
--- NOTE | 2023-09-16 15:48 | MHC.OFFVIS ---
Intake Intake Visit Reasons: Remote Device Check- Medtronic Allergies latex Allergy (Mild, Verified 05/05/23 15:07) Redness of Skin seasonal Allergy (Mild, Uncoded 02/13/22 15:24) Itchy Eyes PFSH Medical History History of complete heart block History of blood transfusion History of GI bleed Personal history of COVID-19 Cervical disc disorder Hx of pulmonary embolus History of DVT (deep vein thrombosis) Anemia Asthma Non-rheumatic aortic stenosis Edema, peripheral Congestive heart failure Hypertrophic cardiomyopathy Pulmonary hypertension Obesity Paroxysmal atrial fibrillation Cardiac pacemaker in situ (~2013) CAD (coronary artery disease) Aortic stenosis (HFpEF) heart failure with preserved ejection fraction Surgical History History of cardiac cath History of heart surgery History of elbow surgery History of cardioversion History of permanent cardiac pacemaker placement Family History Father No problems noted. Mother CVD (cardiovascular disease) Social History Household Members: Children Household Members Other:: son Housing: House Are you a primary multi care technician to a significant other at home: No Do you presently have visiting nurse or other home services: No Alcohol intake: current Alcohol intake frequency: a few times a week Alcohol type: wine Patient Tobacco Use Status: Former Tobacco user Quit Date: 40 yrs ago Tobacco use type: Cigarette Second Hand Smoke Exposure: No service: No Current occupational status: employed Office Procedures Cardiac Device Check Cardiac Device Check Details: Remote pacemaker report generated 09/15/2023. Pacemaker function is adequate. Increasing burden of atrial fibrillation noted recently [id number] Cardiac Device Interrogation, pacemaker Procedure code (CPT) selection complete Coding Level of Care Code Procedure Only CPT Codes Cardiac Device Check - Cardiac Device 12: [id number] Cardiac Device Interrogation, pacemaker ([id number])
== END ==
PROVIDERS: Visit Provider Internal Medicine Cardiovascular Disease
DX: I48.0 Paroxysmal atrial fibrillation (principal); Z95.0 Presence of cardiac pacemaker
CPT/HCPCS: 93294

== ENCOUNTER → 2023-12-15 23:59 | Outpatient (BNV) | payer MEDICARE, OTHER, SELFPAY ==
--- NOTE | 2023-12-21 14:15 | MHC.OFFVIS ---
Intake Intake Visit Reasons: Remote Device Check- Medtronic Allergies latex Allergy (Mild, Verified 05/05/23 15:07) Redness of Skin seasonal Allergy (Mild, Uncoded 02/13/22 15:24) Itchy Eyes PFSH Medical History History of complete heart block History of blood transfusion History of GI bleed Personal history of COVID-19 Cervical disc disorder Hx of pulmonary embolus History of DVT (deep vein thrombosis) Anemia Asthma Non-rheumatic aortic stenosis Edema, peripheral Congestive heart failure Hypertrophic cardiomyopathy Pulmonary hypertension Obesity Paroxysmal atrial fibrillation Cardiac pacemaker in situ (~2013) CAD (coronary artery disease) Aortic stenosis (HFpEF) heart failure with preserved ejection fraction Surgical History History of cardiac cath History of heart surgery History of elbow surgery History of cardioversion History of permanent cardiac pacemaker placement Family History Father No problems noted. Mother CVD (cardiovascular disease) Social History Household Members: Children Household Members Other:: son Housing: House Are you a primary urgent care nurse practitioner to a significant other at home: No Do you presently have visiting nurse or other home services: No Alcohol intake: current Alcohol intake frequency: a few times a week Alcohol type: wine Comment: Uses scooter Patient Tobacco Use Status: Former Tobacco user Quit Date: 40 yrs ago Tobacco use type: Cigarette Second Hand Smoke Exposure: No service: No Current occupational status: employed Office Procedures Cardiac Device Check Cardiac Device Check Details: Remote pacemaker report generated 12/15/2023. Pacemaker function is adequate. Increasing burden of atrial fibrillation noted with total burden up to 50% [id number] Cardiac Device Interrogation, pacemaker Procedure code (CPT) selection complete Assessment & Plan Assessment & Plan (1) Cardiac pacemaker in situ: Onset Date: ~2013 Comment: (Medtronic DCPP - placed 2013, generator change 02/2022) Code(s): Z95.0 - Presence of cardiac pacemaker Plan: See above Coding Level of Care Code Procedure Only Diagnoses Cardiac pacemaker in situ Z95.0 CPT Codes Cardiac Device Check - Cardiac Device 12: [id number] Cardiac Device Interrogation, pacemaker ([id number])
== END ==
PROVIDERS: Visit Provider Internal Medicine Cardiovascular Disease
DX: I48.0 Paroxysmal atrial fibrillation (principal); Z95.0 Presence of cardiac pacemaker
CPT/HCPCS: 93294

== ENCOUNTER 2024-01-26 15:31 | Outpatient (AMB) | payer MEDICARE, OTHER, SELFPAY ==
[2024-01-26 15:34] VITALS: BP 138/84; PULSE 73; BMI 22.8
--- NOTE | 2024-01-26 15:34 | A.OFFVIS_ITS ---
Intake Vital Signs 01/26/24 15:34 Height 5 ft 7 in Weight 145 lb 8.081 oz BMI 22.8 BP 138/84 Blood Pressure Location Lt brachial Position Sitting Pulse 73 Intake Visit Reasons: follow up 6 month medtronic Intake Note: 6 month follow-up with ekg and medtronic check Appliquer Zigzag Required: No Allergies latex Allergy (Mild, Verified 05/05/23 15:07) Redness of Skin seasonal Allergy (Mild, Uncoded 02/13/22 15:24) Itchy Eyes Medication List - Last Reconciled 01/26/24 by Ankit Stuart MD albuterol sulfate 90 mcg/actuation 2 puffs PO Q4H PRN amiodarone 200 mg PO DAILY furosemide (Lasix) 20 mg PO DAILY montelukast 10 mg PO DAILY rivaroxaban 20 mg PO DAILY verapamil 160 mg (2 x 80 mg) PO BID HPI HPI Comments History of Present Illness Details Silvia comes for follow-up. She notices sometimes episodes of not feeling well and then when we confirmed with the pacer telemetry notice that his symptoms could be correlated to atrial fibrillation. She has feeling of cold and feeling tired. She also has some issues with falls. She is gone week or and frail her and has lost some weight. She is walking with a walker. No progressive heart failure symptoms. No lightheadedness, syncope. Takes all her medications. No bleeding issues or neurologic events. No exertional chest pain. [facility] Medical History History of complete heart block History of blood transfusion History of GI bleed Personal history of COVID-19 Cervical disc disorder Hx of pulmonary embolus History of DVT (deep vein thrombosis) Anemia Asthma Non-rheumatic aortic stenosis Edema, peripheral Congestive heart failure Hypertrophic cardiomyopathy Pulmonary hypertension Obesity Paroxysmal atrial fibrillation Cardiac pacemaker in situ (~2013) CAD (coronary artery disease) Aortic stenosis (HFpEF) heart failure with preserved ejection fraction Surgical History History of cardiac cath History of heart surgery History of elbow surgery History of cardioversion History of permanent cardiac pacemaker placement Family History Father No problems noted. Mother CVD (cardiovascular disease) Social History Household Members: Children Household Members Other:: son Housing: House Are you a primary health care facilities inspector to a significant other at home: No Do you presently have visiting nurse or other home services: No Alcohol intake: current Alcohol intake frequency: a few times a week Alcohol type: wine Comment: Uses scooter Patient Tobacco Use Status: Former Tobacco user Quit Date: 40 yrs ago Tobacco use type: Cigarette Second Hand Smoke Exposure: No service: No Current occupational status: employed Review of Systems Const Denies chills, Denies fatigue, Denies fever(s), Denies frequent falls, Denies weakness, Denies weight gain and Denies weight loss ENT Denies dizziness Card Denies chest pain, Denies leg edema, Denies lightheadedness, Denies palpitations, Denies dyspnea, Denies dyspnea on exertion, Denies orthopnea and Denies other (loss of consciousness) Resp Denies cough, Denies dyspnea and Denies dyspnea on exertion GI Denies hematochezia and Denies change in stool character Musc Denies abnormal gait, Denies muscle weakness, Denies numbness, Denies radiating pain into limb and Denies tingling Neuro Denies abnormal gait, Denies dizziness, Denies frequent falls, Denies numbness, Denies tingling and Denies weakness Endo Denies fatigue and Denies palpitations Physical Exam Vital Signs: Last Vital Signs Pulse 73 01/26/24 15:34 BP 138/84 01/26/24 15:34 BMI result Body Mass Index 22.8 Const General: cooperative, comfortable, no acute distress, alert, awake, poor hygiene and tired appearing Nutritional Appearance: other (Frail appearing) Orientation/consciousness: patient oriented x3 Limitations: ambulation with walker Neck Neck: Yes trachea midline, Yes supple and Yes no JVD Chest Chest palpation & inspection: normal inspection of the chest Resp Effort & Inspection: normal respiratory effort Auscultation: clear to auscultation bilaterally, no rales, no wheezes and diminished lung sounds Cardio Jugular venous distension: no JVD Rate: regular rate Rhythm: regular rhythm Heart sounds: S1 normal heart sound present, S2 normal heart sound present, Murmur heart sound present systolic late, decrescendo, crescendo, III/ and at the right sternal border and Other heart sounds present (S4) GI Auscultation: normal bowel sounds Skin General skin exam: no rashes or lesions noted Neuro General: patient oriented x3 and no focal motor deficits Extrem General: No clubbing, No cyanosis and No edema Psych Appearance: grossly normal Office Procedures Cardiac Device Check Cardiac Device Check Details: Dual-chamber Medtronic pacemaker in place programmed in MVP mode with rate response at 70 beats per minute. Overall atrial pacing 65% of time. Intermittent episode of atrial fibrillation with burden of about 33%. Activity level is very low. Atrial ventricular pacing thresholds elevated and repr ogrammed to provide adequate safety. Pacing lead impedance is stable. Battery life is adequate at about 7 years [id number] Cardiac Device Check, pacemaker dual lead Procedure code (CPT) selection complete EKG Details: EKG shows atrially paced ventricularly sensed rhythm with right bundle-branch block with septal Q-waves [id number], Complete Assessment & Plan Assessment & Plan (1) Aortic stenosis: Comment: (moderate) Code(s): I35.0 - Nonrheumatic aortic (valve) stenosis Plan: Aortic stenosis which clinically appears to be getting worse. She is having some increasing symptoms and increasing burden of atrial fibrillation. Will follow with echocardiogram to see if there is progressive aortic stenosis that may benefit from intervention. Will schedule for an echocardiogram in near future. Otherwise continue aggressive risk factor modification. (2) Paroxysmal atrial fibrillation: Code(s): I48.0 - Paroxysmal atrial fibrillation Plan: Paroxysmal atrial fibrillation with increasing burden now with symptoms related to it. Probably related to increased scarring in the atrium. There is noted by lower atrial P-wave sensing as well as increase thresholds required. She is alr sue on amiodarone for long-term as well as verapamil. Options of treatment are limited. This was discussed with her. Currently on full oral anticoagulation with Xarelto. Continue the same. Check for amiodarone toxicity. Also check for renal function. (3) (HFpEF) heart failure with preserved ejection fraction: Code(s): I50.30 - Unspecified diastolic (congestive) heart failure Plan: Heart failure preserved ejection fraction, clinically appears to be euvolemic and well compensated on low-dose diuretic therapy has done well with rhythm control approach will continue pursue it as much as possible. Follow-up echocardiogram near future to see if there is progressive aortic stenosis and pulmonary hypertension. Daily weight monitoring avoidance of salt loading was discussed. Overall prognosis is guarded. She has significant progressive aortic stenosis will pursue aortic valve replacement. (4) CAD (coronary artery disease): Code(s): I25.10 - Atherosclerotic heart disease of [place] coronary artery without angina pectoris Plan: CAD with prior stenting. Currently no symptoms of angina. Continue aggressive risk factor modification. Currently not on any statin therapy for unclear reasons. Should consider the same. Target goal LDL less than 70 mg/dL. Continue full oral anticoagulation would avoid additional antiplatelet agent to reduce bleeding risk. (5) Cardiac pacemaker in situ: Onset Date: ~2013 Comment: (Medtronic DCPP - placed 2013, generator change 02/2022) Code(s): Z95.0 - Presence of cardiac pacemaker Plan: Dual-chamber cardiac pacemaker in-situ for sick sinus syndrome. Currently doing well. Will follow remotely in 3 months time follow up in the clinic in 6 months time. (6) Hypertrophic cardiomyopathy: Comment: Status post alcohol septal ablation Code(s): I42.2 - Other hypertrophic cardiomyopathy Plan: Hypertrophic cardiomyopathy status post septal ablation many years ago. Has been no recurrence of hypertrophic physiology. Continue monitor by echocardiogram. Follow up in the clinic in 6 months time, sooner p.r.n.. Rare than 30 minutes was spent in managing his complex care. Orders: Orders CA echo transthoracic complete Today I35.0 - Nonrheumatic aortic (valve) stenosis Basic Metabolic Panel Today I48.0 - Paroxysmal atrial fibrillation Liver Panel Today I48.0 - Paroxysmal atrial fibrillation Complete Blood Count no Diff Today I48.0 - Paroxysmal atrial fibrillation TSH reflex Free T4 Today I48.0 - Paroxysmal atrial fibrillation XR chest 2V Today I48.0 - Paroxysmal atrial fibrillation Coding Level of Care Code Est Pt Level 5 (74639) Diagnoses Aortic stenosis I35.0 Paroxysmal atrial fibrillation I48.0 (HFpEF) heart failure with preserved ejection fraction I50.30 CAD (coronary artery disease) I25.10 Cardiac pacemaker in situ Z95.0 Hypertrophic cardiomyopathy I42.2 CPT Codes Cardiac Device Check - Cardiac Device 2: [id number] Cardiac Device Check, pacemaker dual lead ([id number]) EKG - CPT: 54650-[id number], Complete ([id number])
== END 2024-01-26 16:11 | disposition home or self-care (01) ==
PROVIDERS: Visit Provider Internal Medicine Cardiovascular Disease
DX: I35.0 Nonrheumatic aortic (valve) stenosis (principal); I48.0 Paroxysmal atrial fibrillation; I50.30 Unspecified diastolic (congestive) heart failure; I25.10 Atherosclerotic heart disease of native coronary artery without angina pectoris; Z95.0 Presence of cardiac pacemaker; I42.2 Other hypertrophic cardiomyopathy
CPT/HCPCS: 93010; 93280; 99215

== ENCOUNTER 2024-01-26 15:31 | Outpatient (REF) | payer MEDICARE, OTHER, SELFPAY ==
--- NOTE | ~2024-01-26 | XR_ITS ---
EXAMINATION: XR CHEST CLINICAL INFORMATION: Paroxysmal atrial fibrillation. COMPARISON: 05/05/2023, 08/14/2022. TECHNIQUE: 2 views of the chest were obtained. FINDINGS: The lungs remain well-inflated. Left subclavian approach pacer redemonstrated with leads overlying right atrium and right ventricle. Dense mitral valve calcification. Cardiac silhouette is enlarged. No gross pleural effusion. Stable cardiomediastinal silhouette with redemonstration of hilar prominence. Degenerative changes in the thoracic spine. No new focal consolidation to suggest pneumonia. XR/XR chest 2V IMPRESSION: 1. No evidence of pneumonia. 2. Enlarged cardiac silhouette.
[2024-01-26 17:41] LABS: Hematocrit 33.7 % (37.0-47.0); Mean Corpuscular HGB Conc 29.7 g/dl (31.0-35.0); Mean Corpuscular Hemoglobin 24.2 pg (27.0-33.0); Mean Corpuscular Volume 81.4 fL (80.0-98.0); Mean Platelet Volume 8.9 fL (9.4-12.3); Platelet Count 380 X10*3/uL (160-400); Red Blood Count 4.14 X10*6/uL (4.20-5.50); Red Cell Distribution Width 19.2 % (11.0-16.0); White Blood Count 6.3 X10*3/uL (4.8-10.8)
[2024-01-26 18:33] LABS: Alanine Aminotransferase 7 U/L (0-31); Albumin Level 3.8 g/dL (3.5-5.0); Alkaline Phosphatase 148 U/L (39-117); Anion Gap 15 (12-20); Aspartate Amino Transferase 12 U/L (5-31); Bilirubin Direct 0.3 mg/dL (0.0-0.5); Bilirubin Total 0.7 mg/dL (0.0-1.0); Blood Urea Nitrogen 25 mg/dL (9-16); Calcium 9.3 mg/dL (8.4-10.2); Carbon Dioxide 23 mmol/L (22-29); Chloride 112 mmol/L (96-108); Estimated Glomerular Filt Rate > 60; Glucose Random 98 mg/dL (60-115); Potassium 4.5 mmol/L (3.3-5.1); Sodium 145 mmol/L (135-145); Total Protein 7.9 g/dL (6.5-8.0)
[2024-01-26 18:48] LABS: TSH reflex Free T4 1.85 uIU/mL (0.32-4.0)
== END 2024-01-26 15:32 | disposition home or self-care (01) ==
LOC: HO.LAB 15:31
PROVIDERS: PCP Internal Medicine; Visit Provider Internal Medicine Cardiovascular Disease
DX: I35.0 Nonrheumatic aortic (valve) stenosis (principal); I48.0 Paroxysmal atrial fibrillation; I50.30 Unspecified diastolic (congestive) heart failure; I25.10 Atherosclerotic heart disease of native coronary artery without angina pectoris; I42.2 Other hypertrophic cardiomyopathy; Z95.0 Presence of cardiac pacemaker
CPT/HCPCS: 36415; 71046; 80048; 80076; 84443; 85027; 93005; 93280; 99212

== ENCOUNTER → 2024-02-16 15:02 | Outpatient (REF) | payer MEDICARE, OTHER, SELFPAY ==
--- NOTE | 2024-02-16 15:06 | CA_ITS ---
Transthoracic Echocardiogram Patient (Last, First, Middle): Sophie Schulz E Gender: Female Date of : 1945 Age: 78 Procedure Date: 02/16/2024 Procedure Type: Transthoracic Echocardiogram Location: OP Height: 172.72 cm Weight: 64.41 kg BSA: 1.77 m2 Heart Rate: bpm BP: 108 / 70 mmHg Technical Testing Engineer: LESLIE Referring MD: Ankit Stuart MD Small Piece Cutter: Ankit Stuart MD Symptoms: I35.0 - Nonrheumatic aortic (valve) stenosis Study Quality: Adequate ECG Rhythm: Sinus Conclusions: - 1. Normal LVEF of 65-70% with mild LVH with grade II diastolic dysfunction. 2. Severely dilated left atrium 3. Moderately severe aortic stenosis 4. Severe MAC 5. Moderately severe RVSP with significantly elevated RA pressure. 6. Mo significant pericardial effusion Findings Left Ventricle Normal left ventricular size and systolic function. There is mildly increased left ventricular wall thickness. The visually estimated ejection fraction is between 65-70%. Spectral Doppler is indicative of a pseudonormal filling pattern. E/E prime ratio is >15, consistent with elevated filling pressures. Evidence suggests grade II (moderate) diastolic dysfunction. Right Ventricle Mildly increased right ventricular cavity size. There is normal right ventricular systolic function. There is a pacemaker wire seen in the right ventricle. Atria The left atrium is severely dilated. Interatrial shunt cannot be excluded. The right atrium is moderately dilated. A pacemaker wire is identified in the right atrium. Aortic Valve There is moderate calcification of the aortic valve. There is moderate to severe aortic valve stenosis. The peak aortic gradient is 68 mmHg.The mean gradient is 35 mmHg. The aortic valve area is 0.84 cm2. There is no aortic valve regurgitation. Dimensionless index is 0.27, c/w moderately severe aortic stenosis Mitral Valve There is mild anterior and severe posterior mitral leaflet thickening. There is severe mitral annular calcification. There is trace mitral valve regurgitation. There is mild to moderate mitral valve stenosis. Pulmonic Valve The pulmonic valve was not well visualized. Tricuspid Valve Likely normal tricuspid valve structure and function. There is moderate to severe tricuspid valve regurgitation. Significantly elevated right atrial pressure. Moderate to severe pulmonary hypertension is present. Great Vessels The pulmonary artery was not well visualized. There is mild dilatation of the ascending aorta measuring 4.40 cm. Venous The inferior vena cava is severely dilated and collapses less than 50% with inspiration. Pericardium/Pleural There is no evidence of pericardial effusion. Prior Study Comparison Changes noted compared to prior study dated: 07/15/2023. Aortic stenosis worse. Measurements 2D Linear Measurements IVSd: 1.26 0.6-0.9/0.6-1.0 cm LVIDd: 5.15 3.9-5.3/4.2-5.9 cm LVIDd Index: 2.91 2.4-3.2/2.2-3.1 cm/m2 LVIDs: 3.40 2.0-3.6 cm LVPWd: 1.11 0.7-1.1 cm LA Diam: 4.50 2.7-3.8/3.0-4.0 cm LAIDs Index: 2.54 1.5-2.3 cm/m2 LV Mass: 300.21 67-162/88-224 g LV Mass Index: 169.61 43-95/49-115 g/m2 LVOT Diam: 2.00 3.0+(-)1.3 cm 2D Systolic Function EF 4C: 64.00 >55% EF 2C: 71.80 >55% EF BiP: 68.30 >55% Mitral Valve MV VTI: 0.49 MV Pk Yo: 1.75 MV Mn Yo: 0.96 MV Pk Grad: 12.00 MV Mn Grad: 4.00 MV Pk E: 1.63 MV PK A: 0.87 MV Decel Time: 255.00 E/A: 1.90 E'Lateral: 8.27 E'Medial: 4.57 E/E' Med: 35.70 E/E' Lat: 19.70 PHT: 75.00 MVA PHT: 2.93 MVA Continuity: 1.46 Decel Cass: 6.38 Aortic Valve AoV Pk Yo: 4.12 AoV Mn Yo: 2.72 AoV VTI: 0.85 AoV Pk Grad: 68.00 Aov Mn Grad: 35.00 TYREL Cont.VTI: 0.84 LVOT LVOT Pk Yo: 0.99 LVOT Mn Yo: 0.71 LVOT VTI: 0.23 LVOT Pk Grad: 4.00 LVOT Mn Grad: 2.00 LVOT Diam: 2.00 LVOT Area: 3.14 Diastolic Function MV Pk E: 1.63 MV Pk A: 0.87 E/A: 1.90 E'Medial: 4.57 E/E' Med: 35.70 E' Laterial: 8.27 E/E' Lat: 19.70 Right Ventricle TAPSE (mm): 18.50 TVS' Yo: 12.00 Tricuspid Valve TR Pk Yo: 3.47 TR Pk Grad: 48.00 RA Press: 15.00 RVSP: 63.00 Great Vessels Aorta Ao Asc: 4.40 2.1-3.4 cm Updated in Other Vendor System with Status of Final Ankit Stuart MD electronically signed on 02/17/2024 3:05:07 PM with status of Final
== END ==
LOC: HO.CARD 15:02
PROVIDERS: PCP Internal Medicine; Visit Provider Internal Medicine Cardiovascular Disease
DX: I35.0 Nonrheumatic aortic (valve) stenosis (principal)
CPT/HCPCS: 93306

== ENCOUNTER → 2024-02-16 15:06 | Outpatient (BNV) | payer MEDICARE, OTHER, SELFPAY | PROVIDERS: PCP Internal Medicine; Visit Provider Internal Medicine Cardiovascular Disease | DX: I35.0 Nonrheumatic aortic (valve) stenosis (principal); I36.1 Nonrheumatic tricuspid (valve) insufficiency; I34.2 Nonrheumatic mitral (valve) stenosis | CPT/HCPCS: 93306 ==

== ENCOUNTER → 2024-03-15 23:59 | Outpatient (BNV) | payer MEDICARE, OTHER, SELFPAY ==
--- NOTE | 2024-03-16 10:16 | A.OFFVIS_ITS ---
Intake Visit Reasons: Remote device check- Medtronic Allergies latex Allergy (Mild, Verified 05/05/23 15:07) Redness of Skin seasonal Allergy (Mild, Uncoded 02/13/22 15:24) Itchy Eyes PFSH Medical History History of complete heart block History of blood transfusion History of GI bleed Personal history of COVID-19 Cervical disc disorder Hx of pulmonary embolus History of DVT (deep vein thrombosis) Anemia Asthma Non-rheumatic aortic stenosis Edema, peripheral Congestive heart failure Hypertrophic cardiomyopathy Pulmonary hypertension Obesity Paroxysmal atrial fibrillation Cardiac pacemaker in situ (~2013) CAD (coronary artery disease) Aortic stenosis (HFpEF) heart failure with preserved ejection fraction Surgical History History of cardiac cath History of heart surgery History of elbow surgery History of cardioversion History of permanent cardiac pacemaker placement Family History Father No problems noted. Mother CVD (cardiovascular disease) Social History Household Members: Children Household Members Other:: son Housing: House Are you a primary health care / medical job titles to a significant other at home: No Do you presently have visiting nurse or other home services: No Alcohol intake: current Alcohol intake frequency: a few times a week Alcohol type: wine Comment: Uses scooter Patient Tobacco Use Status: Former Tobacco user Quit Date: 40 yrs ago Tobacco use type: Cigarette Second Hand Smoke Exposure: No service: No Current occupational status: employed Office Procedures Cardiac Device Check Cardiac Device Check Details: Remote pacemaker report generated 03/15/2024. Pacemaker function is adequate. Total burden of atrial fibrillation about 10% [id number] Cardiac Device Interrogation, pacemaker Procedure code (CPT) selection complete Assessment & Plan Assessment & Plan (1) Cardiac pacemaker in situ: Onset Date: ~2013 Comment: (Medtronic DCPP - placed 2013, generator change 02/2022) Code(s): Z95.0 - Presence of cardiac pacemaker Category: Medical Plan: See above Coding Level of Care Code Procedure Only Diagnoses Cardiac pacemaker in situ Z95.0 CPT Codes Cardiac Device Check - Cardiac Device 12: [id number] Cardiac Device Interrogation, pacemaker ([id number])
== END ==
PROVIDERS: PCP Internal Medicine; Visit Provider Internal Medicine Cardiovascular Disease
DX: I48.91 Unspecified atrial fibrillation (principal); Z95.0 Presence of cardiac pacemaker
CPT/HCPCS: 93294

== ENCOUNTER → 2024-06-13 23:59 | Outpatient (BNV) | payer MEDICARE, OTHER, SELFPAY ==
--- NOTE | 2024-06-15 12:45 | MHC.OFFVIS ---
Intake Visit Reasons: Remote device check-Medtronic Allergies latex Allergy (Mild, Verified 05/05/23 15:07) Redness of Skin seasonal Allergy (Mild, Uncoded 02/13/22 15:24) Itchy Eyes PFSH Medical History History of complete heart block History of blood transfusion History of GI bleed Personal history of COVID-19 Cervical disc disorder Hx of pulmonary embolus History of DVT (deep vein thrombosis) Anemia Asthma Non-rheumatic aortic stenosis Edema, peripheral Congestive heart failure Hypertrophic cardiomyopathy Pulmonary hypertension Obesity Paroxysmal atrial fibrillation Cardiac pacemaker in situ (~2013) CAD (coronary artery disease) Aortic stenosis (HFpEF) heart failure with preserved ejection fraction Surgical History History of cardiac cath History of heart surgery History of elbow surgery History of cardioversion History of permanent cardiac pacemaker placement Family History Father No problems noted. Mother CVD (cardiovascular disease) Social History Household Members: Children Household Members Other:: son Housing: House Are you a primary wound care specialist to a significant other at home: No Do you presently have visiting nurse or other home services: No Alcohol intake: current Alcohol intake frequency: a few times a week Alcohol type: wine Comment: Uses scooter Patient Tobacco Use Status: Former Tobacco user Tobacco use type: Cigarette Second Hand Smoke Exposure: No service: No Current occupational status: employed Office Procedures Cardiac Device Check Cardiac Device Check Details: Remote pacemaker report generated 06/13/2024. Pacemaker function is adequate. Atrial fibrillation about 6% of the time [id number] Cardiac Device Interrogation, pacemaker Procedure code (CPT) selection complete Assessment & Plan Assessment & Plan (1) Cardiac pacemaker in situ: Onset Date: ~2013 Comment: (Medtronic DCPP - placed 2013, generator change 02/2022) Code(s): Z95.0 - Presence of cardiac pacemaker Category: Medical Plan: See above Coding Level of Care Code Procedure Only Diagnoses Cardiac pacemaker in situ Z95.0 CPT Codes Cardiac Device Check - Cardiac Device 12: [id number] Cardiac Device Interrogation, pacemaker ([id number])
== END ==
PROVIDERS: PCP Internal Medicine; Visit Provider Internal Medicine Cardiovascular Disease
DX: I48.91 Unspecified atrial fibrillation (principal); Z95.0 Presence of cardiac pacemaker
CPT/HCPCS: 93294

== ENCOUNTER 2024-07-12 08:47 | Outpatient (REF) | payer MEDICARE, OTHER, SELFPAY | END 2024-07-12 08:48 | disposition home or self-care (01) | LOC: HO.HOSX 08:47 | PROVIDERS: Visit Provider Orthopaedic Surgery | DX: Z13.89 Encounter for screening for other disorder (principal) ==

== ENCOUNTER 2024-07-21 | Outpatient (REF) | payer MEDICARE, OTHER, SELFPAY | END 2024-07-21 00:01 | disposition home or self-care (01) | LOC: CF | PROVIDERS: Visit Provider Orthopaedic Surgery | DX: M75.42 Impingement syndrome of left shoulder (principal); M75.41 Impingement syndrome of right shoulder; M25.811 Other specified joint disorders, right shoulder; R53.81 Other malaise | CPT/HCPCS: 20610; 99202; J1010 ==

== ENCOUNTER 2024-07-21 13:45 | Outpatient (AMB) | payer MEDICARE, OTHER, SELFPAY ==
[2024-07-21 14:01] VITALS: BMI 22.7
--- NOTE | 2024-07-21 14:01 | MHC.OFFVIS ---
Vital Signs 07/21/24 14:01 Height 5 ft 7 in Weight 145 lb BMI 22.7 Intake Visit Reasons: Bilateral shoulder pains Intake Note: Sophie is a 78 year old female that presents with complaints of progressively worsening bilateral shoulder pains. She describes her pains as sharp in nature. Her pains have gotten worse over the last year in spite of continued non operative treatments. She has done physical therapy exercises which aggravated her pain. She has also tried Tylenol and anti-inflammatory medicines which gave her minimal relief. Allergies latex Allergy (Mild, Verified 05/05/23 15:07) Redness of Skin seasonal Allergy (Mild, Uncoded 02/13/22 15:24) Itchy Eyes Medication List - Last Reconciled 07/22/24 by Wilton Ta MD albuterol sulfate 90 mcg/actuation 2 puffs PO Q4H PRN amiodarone 200 mg PO DAILY furosemide (Lasix) 20 mg PO DAILY montelukast 10 mg PO DAILY rivaroxaban 20 mg PO DAILY verapamil 160 mg (2 x 80 mg) PO BID PFSH Medical History History of complete heart block History of blood transfusion History of GI bleed Personal history of COVID-19 Cervical disc disorder Hx of pulmonary embolus History of DVT (deep vein thrombosis) Anemia Asthma Non-rheumatic aortic stenosis Edema, peripheral Congestive heart failure Hypertrophic cardiomyopathy Pulmonary hypertension Obesity Paroxysmal atrial fibrillation Cardiac pacemaker in situ (~2013) CAD (coronary artery disease) Aortic stenosis (HFpEF) heart failure with preserved ejection fraction Surgical History History of cardiac cath History of heart surgery History of elbow surgery History of cardioversion History of permanent cardiac pacemaker placement Family History Father No problems noted. Mother CVD (cardiovascular disease) Social History Household Members: Children Household Members Other:: son Housing: House Are you a primary family day care provider to a significant other at home: No Do you presently have visiting nurse or other home services: No Alcohol intake: current Alcohol intake frequency: a few times a week Alcohol type: wine Comment: Uses scooter Patient Tobacco Use Status: Former Tobacco user Tobacco use type: Cigarette Second Hand Smoke Exposure: No service: No Current occupational status: employed Physical Exam Vital Signs: BMI result Body Mass Index 22.7 Const Other: Well-nourished well-developed very friendly female awake alert and oriented x3 in no acute distress Extrem Other: Bilateral upper extremity examination shows good capillary refill, no skin lesions noted, normal sensation light touch Bilateral shoulder examination shows forward flexion to 160 degrees, external rotation to 40 degrees, internal rotation to level L4, 4+ out of 5 strength with supraspinatus testing, positive impingement signs, no instability Office Procedures Joint Injection/Aspiration Joint Injection/Aspiration Primary Site: left shoulder Prep: site was prepped using aseptic technique Injected: 40 mg of, DepoMedrol and 1% plain lidocaine Procedure: The patient tolerated the procedure well Coding 52465 - Large joint Procedure code (CPT) selection complete Joint Injection/Aspiration Joint Injection/Aspiration Primary Site: right shoulder Prep: site was prepped using aseptic technique Injected: 40 mg of, DepoMedrol and 1% plain lidocaine Procedure: The patient tolerated the procedure well Coding 05994 - Large joint Procedure code (CPT) selection complete Assessment & Plan Assessment & Plan (1) Impingement syndrome of left shoulder: Code(s): M75.42 - Impingement syndrome of left shoulder Category: Medical (2) Impingement of right shoulder: Code(s): M25.811 - Other specified joint disorders, right shoulder Category: Medical Plan Ms. Schulz presents with bilateral shoulder pains due to impingement syndrome. I had a lengthy discussion with the patient regarding the treatment options. The risks and benefits of bilateral shoulder cortisone injections were discussed at length with the patient. The patient wished to proceed. She tolerated the injections well. She will continue with her home stretching program to prevent stiffness. She will contact me prior to her follow-up appointment in 3 months should any questions or concerns arise. Feel free to call me at any time should questions regarding her orthopedic management arise. Thank you very much for asking me to see this very friendly patient. I spent 22 minutes in reviewing the patient's records and imaging studies, seeing the patient and documenting in the medical record. Orders: Orders PT Evaluation and Treatment 07/21/24 R53.81 - Other malaise AMB Joint Injection/Aspiration 07/21/24 M75.42 - Impingement syndrome of left shoulder AMB Joint Injection/Aspiration 07/21/24 M25.811 - Other specified joint disorders, right shoulder Coding Level of Care Code New Pt Level 3 (29255) Complex EM visit Add On G2211 Diagnoses Impingement syndrome of left shoulder M75.42 Impingement of right shoulder M25.811 CPT Codes Coding - 19632 Large joint: 13671 - Large joint ([id number]) Coding - 87339 Large joint: 65835 - Large joint ([id number])
== END 2024-07-21 14:35 | disposition home or self-care (01) ==
PROVIDERS: PCP Internal Medicine; Visit Provider Orthopaedic Surgery
DX: M75.42 Impingement syndrome of left shoulder (principal); M25.811 Other specified joint disorders, right shoulder
CPT/HCPCS: 20610; 99203

== ENCOUNTER 2024-07-28 14:39 | Outpatient (AMB) | payer MEDICARE, OTHER, SELFPAY ==
--- NOTE | 2024-07-28 14:40 | A.OFFVIS_ITS ---
Vital Signs 07/28/24 14:41 Height 5 ft 7 in Weight 132 lb 4.438 oz BMI 20.7 BP 124/80 Blood Pressure Location Lt brachial Position Sitting Pulse 62 Intake Visit Reasons: 6 mth f/up Intake Note: 6 month follow-up has been out of amiodarone 200mg x1 month c/o fatigue, sob ,and weight loss Line Lead Required: No Allergies latex Allergy (Mild, Verified 05/05/23 15:07) Redness of Skin seasonal Allergy (Mild, Uncoded 02/13/22 15:24) Itchy Eyes Medication List - Last Reconciled 07/28/24 by Ankit Stuart MD albuterol sulfate 90 mcg/actuation 2 puffs PO Q4H PRN montelukast 10 mg PO DAILY rivaroxaban 20 mg PO DAILY verapamil 160 mg (2 x 80 mg) PO BID HPI Comments Details: Silvia comes for follow-up. She ran out of amiodarone about a month ago and said the pharmacy said there were no refills. She did not call or office for refills. She is complaining of increasing exertional fatigue. Denies any orthopnea, PND, leg edema. He is also off diuretic therapy and says has no progressive heart failure syndrome. Denies any lightheadedness, syncope. No exertional chest pain. No bleeding issues or neurologic events. [facility] Medical History History of complete heart block History of blood transfusion History of GI bleed Personal history of COVID-19 Cervical disc disorder Hx of pulmonary embolus History of DVT (deep vein thrombosis) Anemia Asthma Non-rheumatic aortic stenosis Edema, peripheral Congestive heart failure Hypertrophic cardiomyopathy Pulmonary hypertension Obesity Paroxysmal atrial fibrillation Cardiac pacemaker in situ (~2013) CAD (coronary artery disease) Aortic stenosis (HFpEF) heart failure with preserved ejection fraction Surgical History History of cardiac cath History of heart surgery History of elbow surgery History of cardioversion History of permanent cardiac pacemaker placement Family History Father No problems noted. Mother CVD (cardiovascular disease) Social History Household Members: Children Household Members Other:: son Housing: House Are you a primary care support representative to a significant other at home: No Do you presently have visiting nurse or other home services: No Alcohol intake: current Alcohol intake frequency: a few times a week Alcohol type: wine Comment: Uses scooter Patient Tobacco Use Status: Former Tobacco user Tobacco use type: Cigarette Second Hand Smoke Exposure: No service: No Current occupational status: employed Review of Systems Const Denies chills, Denies fatigue, Denies fever(s), Denies frequent falls, Denies weakness, Denies weight gain and Denies weight loss ENT Denies dizziness Card Denies chest pain, Denies leg edema, Denies lightheadedness, Denies palpitations, Denies dyspnea, Denies dyspnea on exertion, Denies orthopnea and Denies other (loss of consciousness) Resp Denies cough, Denies dyspnea and Denies dyspnea on exertion GI Denies hematochezia and Denies change in stool character Musc Denies abnormal gait, Denies muscle weakness, Denies numbness, Denies radiating pain into limb and Denies tingling Neuro Denies abnormal gait, Denies dizziness, Denies frequent falls, Denies numbness, Denies tingling and Denies weakness Endo Denies fatigue and Denies palpitations Physical Exam Vital Signs: Last Vital Signs Pulse 62 07/28/24 14:41 BP 124/80 07/28/24 14:41 BMI result Body Mass Index 20.7 Const General: cooperative, comfortable, no acute distress, alert, awake, poor hygiene and tired appearing Nutritional Appearance: other (Frail appearing) Orientation/consciousness: patient oriented x3 Limitations: ambulation with walker Neck Neck: Yes trachea midline, Yes supple and Yes no JVD Chest Chest palpation & inspection: normal inspection of the chest Resp Effort & Inspection: normal respiratory effort Auscultation: clear to auscultation bilaterally, no rales, no wheezes and diminished lung sounds Cardio Jugular venous distension: no JVD Rate: regular rate Rhythm: regular rhythm Heart sounds: S1 normal heart sound present, no click, Murmur heart sound present systolic late, decrescendo, crescendo, III/ and at the right sternal border and Other heart sounds present (S4) GI Auscultation: normal bowel sounds Skin General skin exam: no rashes or lesions noted Neuro General: patient oriented x3 and no focal motor deficits Extrem General: No clubbing, No cyanosis and No edema Psych Appearance: grossly normal Office Procedures Cardiac Device Check Cardiac Device Check Details: Dual-chamber Medtronic pacemaker in place, mode was changed from MVP mode to DDDR which led to proper AV pacing with proper AV interval. Atrial sensitivity could not be checked. Ventricular sensing was excellent. No episodes of atrial fibrillation noted. Atrial and ventricular pacing lead impedance is stable. Atrial pacing thresholds were high and reprogrammed to enhance battery life. Ventricular pacing thresholds elevated and reprogrammed to provide adequate safety. Battery life is at about 8 and half years [id number] Cardiac Device Check, pacemaker dual lead Procedure code (CPT) selection complete EKG Details: EKG shows atrially paced rhythm intermittently with prolonged AV interval with right bundle-branch block with diffuse ST T wave changes suggestive of repo larization abnormality 18685-Imrhorvjitqgwxygm, Complete Assessment & Plan Assessment & Plan (1) Aortic stenosis: Comment: (moderate) Code(s): I35.0 - Nonrheumatic aortic (valve) stenosis Category: Medical Plan: Patient was fairly complicated with having symptoms exertional fatigue which could be related to progressive aortic stenosis. At this point time will repeat echocardiogram to assess for progressive aortic stenosis, clinically definitely appears to have severe aortic stenosis. Further treatment based on finding. We discussed about potential transcatheter valve replacement. Discussed potential institution to be performed at. She wants to think about whether to do it at [facility] or [place]. Process was discussed with her. She understands and agrees with the management plan. (2) (HFpEF) heart failure with preserved ejection fraction: Code(s): I50.30 - Unspecified diastolic (congestive) heart failure Category: Medical Plan: Heart failure preserved ejection fraction, clinically euvolemic and well compensated despite no use of diuretic therapy for some time. I am okay with managing it without diuretic therapy. Signs and symptoms of heart failure were discussed. She understands them well. Continue rhythm control approach aggressively which has helped her significantly. (3) Paroxysmal atrial fibrillation: Code(s): I48.0 - Paroxysmal atrial fibrillation Category: Medical Plan: Paroxysmal atrial fibrillation which has been difficult to manage. She has severe left atrial enlargement has done well on amiodarone therapy. We discussed about her long-term success with amiodarone therapy and avoidance of hospitalization related to heart failure. Continue amiodarone therapy will be restarted. Continue full oral anticoagulation, currently on Xarelto 20 mg daily. Quarterly renal function test should be pursued. Will follow by pacer telemetry. (4) CAD (coronary artery disease): Code(s): I25.10 - Atherosclerotic heart disease of [place] coronary artery without angina pectoris Category: Medical Plan: CAD with prior stenting with no recurrent anginal sounding chest discomfort. Will need cardiac catheterization if plan to undergo transcatheter aortic valve replacement as investigation to to plan the same. Continue aggressive medical therapy. Currently blood pressure is well optimized. Currently on full oral anticoagulation and does not require additional antiplatelet therapy. Currently not on statin therapy for unclear reasons. (5) Cardiac pacemaker in situ: Onset Date: ~2013 Comment: (Medtronic DCPP - placed 2013, generator change 02/2022) Code(s): Z95.0 - Presence of cardiac pacemaker Category: Medical Plan: Cardiac pacemaker in-situ, reprogrammed for adequate function. Will follow remotely every 3 months. Follow up in the clinic in 6 months time. (6) Hypertrophic cardiomyopathy: Comment: Status post alcohol septal ablation Code(s): I42.2 - Other hypertrophic cardiomyopathy Category: Medical Plan: Prior history of hypertrophic obstructive cardiomyopathy status post septal ablation. Currently doing well. No clinical evidence of recurrent hypertrophic cardiomyopathy. Continue verapamil therapy. Will follow up in the clinic in 6 months time. Greater than 40 minutes was spent in managing his complex care Orders: Orders CA echo transthoracic complete Today I35.0 - Nonrheumatic aortic (valve) stenosis Medications: New amiodarone 200 mg PO DAILY 30 tabs 5RF I35.0 - Nonrheumatic aortic (valve) stenosis Coding Level of Care Code Est Pt Level 5 (32926) Diagnoses Aortic stenosis I35.0 (HFpEF) heart failure with preserved ejection fraction I50.30 Paroxysmal atrial fibrillation I48.0 CAD (coronary artery disease) I25.10 Cardiac pacemaker in situ Z95.0 Hypertrophic cardiomyopathy I42.2 CPT Codes Cardiac Device Check - Cardiac Device 2: 16307-[id number] Cardiac Device Check, pacemaker dual lead ([id number]) EKG - CPT: 97768-Vnzqaexknjihugxyj, Complete ([id number])
[2024-07-28 14:41] VITALS: BP 124/80; PULSE 62; BMI 20.7
== END 2024-07-28 15:26 | disposition home or self-care (01) ==
PROVIDERS: Visit Provider Internal Medicine Cardiovascular Disease
DX: I35.0 Nonrheumatic aortic (valve) stenosis (principal); I50.30 Unspecified diastolic (congestive) heart failure; I48.0 Paroxysmal atrial fibrillation; I25.10 Atherosclerotic heart disease of native coronary artery without angina pectoris; Z95.0 Presence of cardiac pacemaker; I42.2 Other hypertrophic cardiomyopathy; Z91.138 Patient's unintentional underdosing of medication regimen for other reason
CPT/HCPCS: 93010; 93280; 99215

== ENCOUNTER → 2024-07-28 14:39 | Outpatient (BNVA) | payer MEDICARE, OTHER, SELFPAY | PROVIDERS: Visit Provider Internal Medicine Cardiovascular Disease | DX: I45.10 Unspecified right bundle-branch block (principal); I35.0 Nonrheumatic aortic (valve) stenosis; I25.10 Atherosclerotic heart disease of native coronary artery without angina pectoris; I11.0 Hypertensive heart disease with heart failure; I50.30 Unspecified diastolic (congestive) heart failure; I48.0 Paroxysmal atrial fibrillation; I42.2 Other hypertrophic cardiomyopathy; Z45.010 Encounter for checking and testing of cardiac pacemaker pulse generator [battery] | CPT/HCPCS: 93005; 93280; 99212 ==

== ENCOUNTER → 2024-08-12 08:55 | Outpatient (REF) | payer MEDICARE, OTHER, SELFPAY ==
--- NOTE | 2024-08-12 08:59 | CA_ITS ---
Transthoracic Echocardiogram Patient (Last, First, Middle): Sophie Schulz E Gender: Female Date of : 1945 Age: 78 Procedure Date: 08/12/2024 Procedure Type: Transthoracic Echocardiogram Location: OP Height: 172.72 cm Weight: 61.24 kg BSA: 1.73 m2 Heart Rate: bpm BP: 118 / 68 mmHg Phlebotomy Director: TO Referring MD: Ankit Stuart MD Symptoms: I35.0 - Nonrheumatic aortic (valve) stenosis Study Quality: Fair Conclusions: - Normal left ventricular size and systolic function. There is moderately increased left ventricular wall thickness. The visually estimated ejection fraction is between 60-65%. - Mildly increased right ventricular cavity size. There is mildly decreased right ventricular systolic function. There is a pacemaker wire seen in the right ventricle. - The left atrium is severely dilated. The right atrium is severely dilated. - There is severe aortic valve stenosis. The peak aortic velocity is 3.43 m/s. The mean gradient is 30 mmHg. The aortic valve area is 0.79 cm2. There is mild aortic valve regurgitation. - There is severe mitral annular calcification. - Significantly elevated right atrial pressure. Severe pulmonary hypertension is present. - There is moderate dilatation of the ascending aorta measuring 4.50 cm. Findings Procedure Information The study quality is limited by the patients inability to tolerate the test. Left Ventricle Normal left ventricular size and systolic function. There is moderately increased left ventricular wall thickness. The visually estimated ejection fraction is between 60-65%. There is no evidence of regional wall motion abnormalities. Diastolic function is indeterminate on the basis of available data. Right Ventricle Mildly increased right ventricular cavity size. There is mildly decreased right ventricular systolic function. There is a pacemaker wire seen in the right ventricle. Atria The left atrium is severely dilated. The right atrium is severely dilated. Aortic Valve There is severe calcification of the aortic valve. There is severe aortic valve stenosis. The peak aortic velocity is 3.43 m/s. The mean gradient is 30 mmHg. The aortic valve area is 0.79 cm2. There is mild aortic valve regurgitation. Mitral Valve There is severe mitral annular calcification. There is mild to moderate mitral valve regurgitation. There is no mitral valve stenosis. Pulmonic Valve The pulmonic valve is likely normal. Tricuspid Valve There is severe tricuspid valve regurgitation. The right ventricular systolic pressure is 67 mmHg. Significantly elevated right atrial pressure. Severe pulmonary hypertension is present. Great Vessels There is moderate dilatation of the ascending aorta measuring 4.50 cm. Venous The inferior vena cava is dilated and does not collapse with inspiration. Pericardium/Pleural There is no evidence of pericardial effusion. Prior Study Comparison Changes noted compared to prior study dated: 02/16/2024. Severe , severe TR and pulm HTN. Measurements 2D Linear Measurements IVSd: 1.45 0.6-0.9/0.6-1.0 cm LVIDd: 5.28 3.9-5.3/4.2-5.9 cm LVIDd Index: 3.05 2.4-3.2/2.2-3.1 cm/m2 LVIDs: 3.56 2.0-3.6 cm LVPWd: 1.21 0.7-1.1 cm LA Diam: 5.10 2.7-3.8/3.0-4.0 cm LAIDs Index: 2.95 1.5-2.3 cm/m2 LV Mass: 367.50 67-162/88-224 g LV Mass Index: 212.43 43-95/49-115 g/m2 LVOT Diam: 2.10 3.0+(-)1.3 cm 2D Systolic Function EF 4C: 47.10 >55% Mitral Valve MV VTI: 0.42 MV Pk Yo: 1.87 MV Mn Yo: 0.88 MV Pk Grad: 14.00 MV Mn Grad: 4.00 MV Pk E: 1.54 MV PK A: 0.41 MV Decel Time: 224.00 E/A: 3.80 E'Lateral: 4.03 E'Medial: 4.03 E/E' Med: 38.20 E/E' Lat: 38.20 PHT: 66.00 MVA PHT: 3.33 MVA Continuity: 1.50 Decel Tucker: 6.85 Aortic Valve AoV Pk Yo: 3.43 AoV Mn Yo: 2.59 AoV VTI: 0.79 AoV Pk Grad: 47.00 Aov Mn Grad: 30.00 TYREL Cont.VTI: 0.79 AI Pk Yo: 4.31 AI Tucker: 2.87 LVOT LVOT Pk Yo: 0.92 LVOT Mn Yo: 0.58 LVOT VTI: 0.18 LVOT Pk Grad: 3.00 LVOT Mn Grad: 2.00 LVOT Diam: 2.10 LVOT Area: 3.46 Diastolic Function MV Pk E: 1.54 MV Pk A: 0.41 E/A: 3.80 E'Medial: 4.03 E/E' Med: 38.20 E' Laterial: 4.03 E/E' Lat: 38.20 Right Ventricle TAPSE (mm): 18.90 TVS' Yo: 8.87 Tricuspid Valve TR Pk Yo: 3.61 TR Pk Grad: 52.00 RA Press: 15.00 RVSP: 67.00 Great Vessels Aorta Sinus of Valsalva: 3.36 2.0-3.5 cm Ao Asc: 4.50 2.1-3.4 cm Ao Arch: 3.00 Updated in Other Vendor System with Status of Final Eduardo Humphries MD electronically signed on 08/14/2024 1:23:18 PM with status of Final
== END ==
LOC: HO.CARD 08:55
PROVIDERS: PCP Internal Medicine; Visit Provider Internal Medicine Cardiovascular Disease
DX: I35.0 Nonrheumatic aortic (valve) stenosis (principal)
CPT/HCPCS: 93306

== ENCOUNTER → 2024-08-12 08:59 | Outpatient (BNV) | payer MEDICARE, OTHER, SELFPAY | PROVIDERS: PCP Internal Medicine; Visit Provider Internal Medicine Cardiovascular Disease | DX: I35.2 Nonrheumatic aortic (valve) stenosis with insufficiency (principal); I34.1 Nonrheumatic mitral (valve) prolapse; I36.1 Nonrheumatic tricuspid (valve) insufficiency; Z95.0 Presence of cardiac pacemaker | CPT/HCPCS: 93306 ==

== ENCOUNTER 2024-08-23 15:35 | Outpatient (AMB) | payer MEDICARE, OTHER, SELFPAY ==
--- NOTE | 2024-08-23 15:40 | A.OFFVIS_ITS ---
Vital Signs 08/23/24 15:41 Height 5 ft 7 in Weight 134 lb 7.712 oz BMI 21.1 BP 118/62 Blood Pressure Location Lt brachial Position Sitting Pulse 80 Intake Visit Reasons: follow-up echo Intake Note: Follow-up echo c/o sob (do to a sinus infection) Non Destructive Testing Scientist Required: No Allergies latex Allergy (Mild, Verified 05/05/23 15:07) Redness of Skin seasonal Allergy (Mild, Uncoded 02/13/22 15:24) Itchy Eyes Medication List - Last Reconciled 08/23/24 by Ankit Stuart MD albuterol sulfate 90 mcg/actuation 2 puffs PO Q4H PRN amiodarone 200 mg PO DAILY montelukast 10 mg PO DAILY rivaroxaban 20 mg PO DAILY verapamil 160 mg (2 x 80 mg) PO BID HPI Comments Details: Silvia comes for follow-up after recent echocardiogram which shows severe aortic stenosis with valve area of 0.79 cm2 with mean gradient of 30 mm Hg consistent with paradoxical low-flow aortic stenosis. Patient complains of more shortness of breath. Denies any symptoms of atrial fibrillation. No orthopnea, PND, leg edema. She says shortness of breath is worse because of recent sinus infection. She is taking all her medications. No bleeding issues or neurologic events. No exertional chest pain. No lightheadedness, syncope. [facility] Medical History (Updated 08/23/24 @ 16:39 by Ankit Stuart MD) History of complete heart block History of blood transfusion History of GI bleed Personal history of COVID-19 Cervical disc disorder Hx of pulmonary embolus History of DVT (deep vein thrombosis) Anemia Asthma Non-rheumatic aortic stenosis Edema, peripheral Congestive heart failure Hypertrophic cardiomyopathy Pulmonary hypertension Obesity Paroxysmal atrial fibrillation Cardiac pacemaker in situ (~2013) CAD (coronary artery disease) Aortic stenosis (HFpEF) heart failure with preserved ejection fraction Surgical History History of cardiac cath History of heart surgery History of elbow surgery History of cardioversion History of permanent cardiac pacemaker placement Family History Father No problems noted. Mother CVD (cardiovascular disease) Social History Household Members: Children Household Members Other:: son Housing: House Are you a primary child care sitter to a significant other at home: No Do you presently have visiting nurse or other home services: No Alcohol intake: current Alcohol intake frequency: a few times a week Alcohol type: wine Comment: Uses scooter Patient Tobacco Use Status: Former Tobacco user Tobacco use type: Cigarette Second Hand Smoke Exposure: No service: No Current occupational status: employed Review of Systems Const Denies chills, Denies fatigue, Denies fever(s), Denies frequent falls, Denies weakness, Denies weight gain and Denies weight loss ENT Denies dizziness Card Denies chest pain, Denies leg edema, Denies lightheadedness, Denies palpitations, Denies dyspnea, Denies dyspnea on exertion, Denies orthopnea and Denies other (loss of consciousness) Resp Denies cough, Denies dyspnea and Denies dyspnea on exertion GI Denies hematochezia and Denies change in stool character Musc Denies abnormal gait, Denies muscle weakness, Denies numbness, Denies radiating pain into limb and Denies tingling Neuro Denies abnormal gait, Denies dizziness, Denies frequent falls, Denies numbness, Denies tingling and Denies weakness Endo Denies fatigue and Denies palpitations Physical Exam Vital Signs: Last Vital Signs Pulse 80 08/23/24 15:41 BP 118/62 08/23/24 15:41 BMI result Body Mass Index 21.1 Const General: cooperative, comfortable, no acute distress, alert, awake, poor hygiene and tired appearing Nutritional Appearance: other (Frail appearing) Orientation/consciousness: patient oriented x3 Limitations: ambulation with walker Neck Neck: Yes trachea midline, Yes supple and Yes no JVD Chest Chest palpation & inspection: normal inspection of the chest Resp Effort & Inspection: normal respiratory effort Auscultation: clear to auscultation bilaterally, no rales, no wheezes and diminished lung sounds Cardio Jugular venous distension: no JVD Rate: regular rate Rhythm: regular rhythm Heart sounds: S1 normal heart sound present, no click, Murmur heart sound present systolic late, decrescendo, crescendo, III/ and at the right sternal border and Other heart sounds present (S4) GI Auscultation: normal bowel sounds Skin General skin exam: no rashes or lesions noted Neuro General: patient oriented x3 and no focal motor deficits Extrem General: No clubbing, No cyanosis and No edema Psych Appearance: grossly normal Assessment & Plan Assessment & Plan (1) Aortic stenosis: Code(s): I35.0 - Nonrheumatic aortic (valve) stenosis Category: Medical Plan: Aortic stenosis which is not severe. She is having increased symptoms of shortness of breath which in addition to her overall physical deconditioning as well as diastolic dysfunction is probably related and contributed by aortic stenosis. This was discussed with her. We had a long discussion about transcatheter aortic valve replacement. She has multiple cardiac comorbidities including prior CAD, heart failure preserved ejection fraction advanced diastolic dysfunction, difficult control atrial fibrillation as the cardiac pacemaker. Systemically she is quite frail with limited functional capacity. Although I think she will benefit from evaluation for transcatheter aortic valve replacement. I had a very detailed discussion about the nature of the procedure and overall morbidities associated with it. She wants to think about it and read more upon it. I will provide her with some literature. I discussed with her that she would start with a cardiac catheterization to evaluate for coronary anatomy and confirm hemodynamics of aortic stenosis as well as filling pressures. This was discussed with her. Eventually she will require evaluation by heart valve team if she decides to proceed with it. She understands and agrees. Potential complications were discussed. (2) (HFpEF) heart failure with preserved ejection fraction: Code(s): I50.30 - Unspecified diastolic (congestive) heart failure Category: Medical Plan: Heart failure preserved ejection fraction, clinically euvolemic and well compensated. Increasing symptoms of shortness of breath related to most likely aortic stenosis. Currently not fluid overloaded. Does not require diuretic regimen. Has done well with rhythm control approach will continue pursue the same. Signs and symptoms of heart failure were discussed. Advised to call me with any new symptoms. (3) CAD (coronary artery disease): Code(s): I25.10 - Atherosclerotic heart disease of [place] coronary artery without angina pectoris Category: Medical Plan: Coronary artery disease with prior stenting and disease in the RCA and circumflex territory. Will require evaluation with a cardiac catheterization to plan for transcatheter aortic valve replacement she was decided to pursue with it. For now continue full oral anticoagulation with Xarelto. Currently not on statin therapy and should consider the same with target goal LDL closer to 60 mg/dL. (4) Paroxysmal atrial fibrillation: Code(s): I48.0 - Paroxysmal atrial fibrillation Category: Medical Plan: Difficult control paroxysmal atrial fibrillation with severe left atrial enlargement. Has done well with amiodarone therapy with recent short episodes. Continue rhythm control approach. She was status post ablation therapy. Continue full oral anticoagulation with Xarelto. Avoidance of stimulants was discussed. (5) Cardiac pacemaker in situ: Onset Date: ~2013 Comment: (Medtronic DCPP - placed 2013, generator change 02/2022) Code(s): Z95.0 - Presence of cardiac pacemaker Category: Medical Plan: Cardiac pacemaker in-situ for sick sinus syndrome. Pacemaker is working well. Reprogrammed in the past follow remotely in 3 months and follow up in the clinic in 6 months time. (6) Hypertrophic cardiomyopathy: Comment: Status post alcohol septal ablation Code(s): I42.2 - Other hypertrophic cardiomyopathy Category: Medical Plan: Prior history of hypertrophic cardiomyopathy status post septal ablation at [facility]. No evidence of LVOT obstruction. Will follow up in the clinic after cardiac catheterization 6 weeks time. Greater than 45 minutes was spent in managing his complex care. Orders: Orders Prothrombin Time INR Today I35.0 - Nonrheumatic aortic (valve) stenosis Basic Metabolic Panel Today I35.0 - Nonrheumatic aortic (valve) stenosis Complete Blood Count no Diff Today I35.0 - Nonrheumatic aortic (valve) stenosis Cardiac Cath SHASHANK Diagnostic 3 Weeks I35.0 - Nonrheumatic aortic (valve) sten osis Coding Level of Care Code Est Pt Level 5 (44791) Complex EM visit Add On G2211 Diagnoses Aortic stenosis I35.0 (HFpEF) heart failure with preserved ejection fraction I50.30 CAD (coronary artery disease) I25.10 Paroxysmal atrial fibrillation I48.0 Cardiac pacemaker in situ Z95.0 Hypertrophic cardiomyopathy I42.2
[2024-08-23 15:41] VITALS: BP 118/62; PULSE 80; BMI 21.1
== END 2024-08-23 16:15 | disposition home or self-care (01) ==
PROVIDERS: PCP Internal Medicine; Visit Provider Internal Medicine Cardiovascular Disease
DX: I35.0 Nonrheumatic aortic (valve) stenosis (principal); I50.30 Unspecified diastolic (congestive) heart failure; I25.10 Atherosclerotic heart disease of native coronary artery without angina pectoris; I48.0 Paroxysmal atrial fibrillation; Z95.0 Presence of cardiac pacemaker; I42.2 Other hypertrophic cardiomyopathy
CPT/HCPCS: 99215; G2211

== ENCOUNTER → 2024-08-23 15:35 | Outpatient (BNVA) | payer MEDICARE, OTHER, SELFPAY | PROVIDERS: PCP Internal Medicine; Visit Provider Internal Medicine Cardiovascular Disease | DX: I35.0 Nonrheumatic aortic (valve) stenosis (principal); I50.30 Unspecified diastolic (congestive) heart failure; I25.10 Atherosclerotic heart disease of native coronary artery without angina pectoris; I48.0 Paroxysmal atrial fibrillation; I42.2 Other hypertrophic cardiomyopathy; Z95.0 Presence of cardiac pacemaker | CPT/HCPCS: 99212 ==

== ENCOUNTER 2024-09-02 06:02 | Inpatient (IN) | payer MEDICARE, OTHER, SELFPAY ==
[2024-09-02] VITALS (10 sets, daily range): BP systolic 111–151; BP diastolic 72–90; PULSE 71–121; RESP 14–24; TEMP 36.4–36.9; O2SAT 96–98; BMI 26.2
--- NOTE | 2024-09-02 | ECG_ITS ---
Test Reason : SOB Blood Pressure : / mmHG Vent. Rate : 122 BPM Atrial Rate : 060 BPM P-R Int : 000 ms QRS Dur : 216 ms QT Int : 478 ms P-R-T Axes : 000 -84 091 degrees QTc Int : 681 ms A-V paced rhythm Abnormal ECG When compared with ECG of 05-MAY-2023 15:48, AV pacing has replaced Electronic atrial pacemaker Vent. rate has increased BY 52 BPM Referred By: Generic ED Physician Electronically Signed By:Eduardo Humphries
--- NOTE | ~2024-09-02 | XR_ITS ---
EXAMINATION: XR CHEST CLINICAL INFORMATION: sob COMPARISON: X-ray dated January 26, 2024 TECHNIQUE: Frontal view of the chest was obtained. FINDINGS: Menisci shaped opacity left lower hemithorax. Blunting of the right costophrenic angle. Prominence of the interstitial lung markings. Cardiomediastinal silhouette is enlarged. Heart valve calcification likely mitral. 2. Intact electrode leads in the right heart chambers from the left-sided pacemaker. Calcified plaque aortic arch. Prominent right perihilar. Degenerative changes in the glenohumeral joints. Multilevel spondylosis. XR/XR chest 1V IMPRESSION: Bilateral pleural effusions, left greater than right. Cardiomegaly versus pericardial effusion. Mild interstitial lung edema. Calcified mitral valve. Electronically signed by: Allan Crawford MD 09/02/2024 07:18 AM EDT
[2024-09-02 06:22] LABS: MANUAL DIFF FLAG NO
[2024-09-02 06:23] LABS: Basophils Absolute Auto 0.1 X10*3/uL (0.0-0.2); Eosinophils Absolute Auto 0.1 X10*3/uL (0.0-0.4); Eosinophils Percent Auto 0.8 % (0-4); Hematocrit 35.4 % (37.0-47.0); Imm Gran Abs Auto 0.03 X10*3/uL (0.00-0.03); Imm Gran Pct Auto 0.4 % (0.0-0.4); Lymphocytes Percent Auto 13.9 % (20-40); Mean Corpuscular HGB Conc 31.1 g/dl (31.0-35.0); Mean Platelet Volume 9.5 fL (9.4-12.3); Monocytes Absolute Auto 0.5 X10*3/uL (0.1-1.2); Neutrophils Absolute Auto 5.5 x10*3/uL (2.0-8.3); Neutrophils Percent Auto 76.9 % (45-73); Platelet Count 379 X10*3/uL (160-400); Red Blood Count 4.07 X10*6/uL (4.20-5.50); Red Cell Distribution Width 16.5 % (11.0-16.0); White Blood Count 7.1 X10*3/uL (4.8-10.8)
--- NOTE | 2024-09-02 06:24 | MHC.EDTECH ---
Patient BIBA for dyspnea. patient changed into hospital gown, vitals taken, EKG complete. patient care on going.
--- NOTE | 2024-09-02 06:29 | ED_ITS ---
HPI - SOB/Dyspnea General Chief Complaint: Dyspnea Stated Complaint: SOB, while flat no sleep, low PO x1week, O2 96% RA Time Seen by Provider: 09/02/24 06:28 Source: patient, EMS, RN notes reviewed and old records reviewed Mode of arrival: EMS Limitations: no limitations History of Present Illness ED Provider: Tanna Kumari PA-C HPI Narrative: 78 yo female with history of HFpEF, severe aortic stenosis, pulmonary HTN, hypertrophic cardiomyopathy s/p septal ablation, hx complete heart block s/p PPM 2013, CAD, paroxysmal afib on Xarelto, asthma, anemia, hx DVT/PE, hx GI bleed, who presents to the ER from home c/o SOB, RODRIGUEZ, and orthopnea x1 week, acutely worsening yesterday. She is not on diuretics at home. She recently had an ECHO and saw Dr. Stuart to discuss possible TAVR. She states yesterday afternoon when she was sitting down her breathing got much worse. It felt like she just ran a marathon. She reports associated palpitations and fatigue. No chest pains. She endorses new LE edema that developed overnight. She states she was up all night because she couldn't breathe. She finally called 911 this morning. She was placed on O2 my EMS and felt better. Unknown if she was hypoxic. MD elicited complaint: shortness of breath Pertinent past history: congestive heart failure and PE Onset (ago): day(s) Timing: progressively worsening Severity: severe Exacerbating factors: lying flat, exertion and movement Relieving factors: oxygen Known history of: congestive heart failure Associated symptoms: palpitations and sense of impending doom Treatment prior to arrival: oxygen Related Data Home oxygen amount: none Home Medications ?Medication ?Instructions ?Recorded ?Confirmed albuterol sulfate 90 mcg/actuation 2 puff PO Q4H PRN Shortness Of 12/17/20 08/23/24 aerosol inhaler Breath montelukast 10 mg tablet 10 mg PO DAILY 12/17/20 08/23/24 rivaroxaban 20 mg tablet 20 mg PO DAILY 12/17/20 08/23/24 Previous Rx's ?Medication ?Instructions ?Recorded amiodarone 200 mg tablet 200 mg PO DAILY #30 tabs 07/28/24 verapamil 80 mg tablet 160 mg (2 x 80 mg) PO BID #360 tabs 08/29/24 Allergies Allergy/AdvReac Type Severity Reaction Status Date / Time latex Allergy Mild Redness of Verified 09/02/24 06:21 Skin seasonal Allergy Mild Itchy Eyes Uncoded 02/13/22 15:24 Review of Systems 2 Review of Systems: Yes all other systems are reviewed and are negative [facility] Past Medical History Medical History (Updated 09/02/24 @ 07:39 by ISABELLA Almazan) History of complete heart block History of blood transfusion History of GI bleed Personal history of COVID-19 Cervical disc disorder Hx of pulmonary embolus History of DVT (deep vein thrombosis) Anemia Asthma Non-rheumatic aortic stenosis Edema, peripheral Congestive heart failure Hypertrophic cardiomyopathy Pulmonary hypertension Obesity Paroxysmal atrial fibrillation Cardiac pacemaker in situ (~2013) CAD (coronary artery disease) Aortic stenosis (HFpEF) heart failure with preserved ejection fraction Surgical History History of cardiac cath History of heart surgery History of elbow surgery History of cardioversion History of permanent cardiac pacemaker placement Family History Family History Father No problems noted. Mother CVD (cardiovascular disease) Social History Social History Household Members: Children Household Members Other:: son Housing: House Are you a primary hospice care transitions coordinator to a significant other at home: No Do you presently have visiting nurse or other home services: No Alcohol intake: current Alcohol intake frequency: holidays/special occasions only Alcohol type: wine Comment: Uses scooter Patient Tobacco Use Status: Former Tobacco user Tobacco use type: Cigarette Smoked in Last 30 Days: No Second Hand Smoke Exposure: No Use of substances other than those prescribed or required for medical reasons: No Advance Directives: Yes Advance Directives Information Provided: Yes Advance Directives on File: No Do you have a plan to hurt others: No Plan service: No Current occupational status: employed Physical Exam 2 Vital Signs: Vital Signs: Last Vital Signs Temp 97.9 F 09/02/24 06:19 Pulse 112 H 09/02/24 07:22 Resp 20 09/02/24 07:22 BP 111/82 09/02/24 07:08 Pulse Ox 97 09/02/24 07:22 O2 Del Method Nasal Cannula 09/02/24 07:22 O2 Flow Rate 1 10/25/24 07:22 BMI result Body Mass Index 26.2 Appearance: Alert. Oriented X3. No acute distress. Head: normocephalic, atraumatic. Eyes: Pupils equal, round and reactive to light. ENT: Pharynx normal. No tonsillar swelling or exudate. Neck: Normal inspection. Neck supple. CVS: Tachycardic, regular rhythm, HR low 100s, +harsh systolic murmur Pulses normal. Respiratory: No respiratory distress. Breath sounds diminished at the bases, inspiratory wheeze in the [place] Abdomen: Soft and nontender. +BS x4 Skin: Skin warm and dry. Normal skin color. Normal skin turgor. No rashes. Extremities: 1+ lower extremity edema involving the lower legs and ankles bilaterally.. No joint swelling. Neuro/psych: Oriented X 3. No motor deficit. No sensory deficit. CN II-XII intact. Normal speech and cognition. Medications Administered Discontinued Medications Generic Name Dose Route Start Last Admin Trade Name Freq PRN Reason Stop Dose Admin Furosemide 20 mg 09/02/24 06:59 09/02/24 07:08 Furosemide 20 Mg/2 Ml Vial IVPUSH 09/02/24 07:00 20 mg ONCE ONE Administration Protocol Medical Decision Making Medical Decision Making MDM Narrative: 78 yo female with history of HFpEF, severe aortic stenosis, pulmonary HTN, hypertrophic cardiomyopathy s/p septal ablation, hx complete heart block s/p PPM 2013, CAD, paroxysmal afib on Xarelto, asthma, anemia, hx DVT/PE, hx GI bleed, who presents to the ER from home c/o SOB, RODRIGUEZ, and orthopnea x1 week, acutely worsening yesterday when she was sitting. Symptoms improved with sitting up and oxygen. Tachycardic on arrival, HR 110s. No respiratory distress and saturating well. She has new LE edema. Concern for acute CHF exacerbation vs acute on chronic SOB due to her severe . Lab workup showing stable normocytic anemia, no leukocytosis. BNP is 923 from 183 about 1 year ago. CXR is showing bilateral pleural effusions, interstitial edema, cardiomegaly vs pericardial effusion. she had an ECHO 08/12 showing no pericardial effusion making this less likely. will gently diurese with lasix 20 mg IVP x1 for now. not currently on any diuretics at home. will admit for further management. Differential Diagnosis Differential Diagnoses: The differential diagnosis associated with the presentation includes acute decompensated CHF exacerbation, severe , pulm HTN, PNA, viral URI, rapid afib Admission/Observation Consideration of admission/observation: Escalation of care including admission/observation considered Consult Healthcare Provider Management of the patient was discussed with: Hospitalist Lab Data MDM Lab Attestation statement: I reviewed the patient's lab results. stable anemia, significantly elevated BNP c/w CHF exacerbation 09/02/24 06:17 09/02/24 06:17 Labs: Lab Results 09/02/24 Range/Units 06:17 WBC 7.1 (4.8-10.8) X10*3/uL RBC 4.07 L (4.20-5.50) X10*6/uL Hgb 11.0 L (12.0-16.0) g/dl Hct 35.4 L (37.0-47.0) % MCV 87.0 (80.0-98.0) fL MCH 27.0 (27.0-33.0) pg MCHC 31.1 (31.0-35.0) g/dl RDW 16.5 H (11.0-16.0) % Plt Count 379 (160-400) X10*3/uL MPV 9.5 (9.4-12.3) fL Immature Gran % (Auto) 0.4 (0.0-0.4) % Neut % (Auto) 76.9 H (45-73) % Lymph % (Auto) 13.9 L (20-40) % [place] % (Auto) 7.0 (2-11) % Eos % (Auto) 0.8 (0-4) % Baso % (Auto) 1.0 (0-2) % Lymph # (Auto) 1.0 L (1.2-4.9) X10*3/uL [place] # (Auto) 0.5 (0.1-1.2) X10*3/uL Eos # (Auto) 0.1 (0.0-0.4) X10*3/uL Baso # (Auto) 0.1 (0.0-0.2) X10*3/uL Abs Immat Gran (auto) 0.03 (0.00-0.03) X10*3/uL Absolute Neuts (auto) 5.5 (2.0-8.3) x10*3/uL Absolute Nucleated RBC 0.000 (0.0-0.012) X10*3/uL Nucleated RBC % (auto) 0.0 (0.0-0.2) /100WBC Sodium 139 (135-145) mmol/L Potassium 4.7 (3.3-5.1) mmol/L Chloride 107 (96-108) mmol/L Carbon Dioxide 21 L (22-29) mmol/L Anion Gap 16 (12-20) BUN 25 H (9-16) mg/dL Creatinine 0.86 (0.5-1.4) mg/dL Estim Creat Clear Calc 49.6 Estimated GFR > 60 Random Glucose 129 H (60-115) mg/dL Calcium 9.0 (8.4-10.2) mg/dL Magnesium 2.2 (1.6-2.6) mg/dL Total Bilirubin 0.7 (0.0-1.0) mg/dL AST 39 H (5-31) U/L ALT 27 (0-31) U/L Alkaline Phosphatase 149 H (39-117) U/L Troponin I High Sens 12.0 (<3.5-17.0) ng/L B-Natriuretic Peptide 982 H (<100) pg/mL Total Protein 7.4 (6.5-8.0) g/dL Albumin 3.9 (3.5-5.0) g/dL Lipase 17 (8-78) U/L Influenza Type A (PCR) NEGATIVE (Negative) Influenza Type B (PCR) NEGATIVE (Negative) RSV RNA Qual (PCR) NEGATIVE (Negative) SARS-CoV-2 RNA (RT-PCR) NEGATIVE (Negative) Independent Interpretation I performed an independent interpretation of an: EKG and Plain X-Ray Interpretation: cxr w/ blunting of bilateral costophrenic ankles c/w small pleural effusions, cardiomegaly ekg w/ v-paced rhythm, HR 122, new ST depressions in lead I. Radiology Impression Discussion of test interpretation with radiology: I have reviewed the radiologist's reading. Independent Historian Clinical information obtained from an independent historian. History obtained from or confirmed by: EMS External Record Review External record reviewed: Inpatient record, Outpatient record, Prior outpatient labs and Prior outpatient radiology Prescription Management I considered prescription management with: Antibiotic and Other (diuretic) Chronic Conditions Patient?s care impacted by: Other (CHF, , cardiomypathy) Critical Care Time Critical Care Time Critical Care Time: Yes Total Critical Care Time: 33 Attestation: I have personally provided critical care time exclusive of time spent on separately billable procedures. Time includes review of lab data, radiology results, discussion with consultants, and monitoring for potential decompensation. Intervention performed as documented. Discharge Plan Discharge Clinical Impression: Acute exacerbation of chronic heart failure, Bilateral pleural effusion, Aortic stenosis, severe Patient Disposition: Admitted As Inpatient Print Language: Armenian
[2024-09-02 06:47] LABS: Alanine Aminotransferase 27 U/L (0-31); Albumin Level 3.9 g/dL (3.5-5.0); Alkaline Phosphatase 149 U/L (39-117); Anion Gap 16 (12-20); Aspartate Amino Transferase 39 U/L (5-31); B Type Natriuretic Peptide 982 pg/mL (<100); Bilirubin Total 0.7 mg/dL (0.0-1.0); Blood Urea Nitrogen 25 mg/dL (9-16); Carbon Dioxide 21 mmol/L (22-29); Chloride 107 mmol/L (96-108); Creatinine Clr Calc Pharmacy 49.6; Estimated Glomerular Filt Rate > 60; Glucose Random 129 mg/dL (60-115); Lipase 17 U/L (8-78); Magnesium 2.2 mg/dL (1.6-2.6); Potassium 4.7 mmol/L (3.3-5.1); Sodium 139 mmol/L (135-145); Total Protein 7.4 g/dL (6.5-8.0)
[2024-09-02 07:05] LABS: Influenza A PCR NEGATIVE (Negative); Influenza B PCR NEGATIVE (Negative); Resp Syncy Virus RNA Qual PCR NEGATIVE (Negative); SARS COV2 PCR INHOUSE NEGATIVE (Negative)
[2024-09-02] MEDS: Furosemide 20 MG/2 ML VIAL IVPUSH (07:08)
--- NOTE | 2024-09-02 07:22 | PC.NURSE ---
Assumed care of patient at 0700. Patient alert and oriented , rr 24 patient sating 95% on RA, requesting 02 to help with WOB. 1 L NC placed. Purewick placed, medicated per jan. Patient with pacemaker (V paced)
--- NOTE | 2024-09-02 08:43 | P.HPHOSP_ITS ---
History of Present Illness Date of Service: 09/02/24 Attending physician on admission: Fidel Marrero Chief Complaint: Shortness of breath/dyspnea Patient is a 78-year-old female with a past medical history significant for HFpEF, severe aortic stenosis, pulmonary hypertension, HCM s/p septal ablation, heart block s/p ppm 2013, CAD, AFib on Xarelto, mild asthma, chronic anemia, history of DVT/PE, history of GI bleed, who presented to the this morning with worsening shortness of breath and dyspnea at rest starting yesterday. Prior to this about a week before she was starting to have shortness of breath with exertion, lower extremity edema and orthopnea. At baseline she does not take any diuretics, she has been off of them for almost a year and doing well. She recently was treated for a sinus infection however symptoms have resolved aside from a runny nose. She denies headache, chest pain, cough, fever, chills, abdominal pain, diarrhea, nausea, vomiting, constipation. She is followed by Dr. Stuart outpatient and is scheduled for a TAVR on 09/13. Recent echo with EF of 60-65%, severe aortic stenosis, severe pulmonary hypertension and severe mitral valve calcification. [facility] Medical History (Updated 09/02/24 @ 07:39 by ISABELLA Almazan) History of complete heart block History of blood transfusion History of GI bleed Personal history of COVID-19 Cervical disc disorder Hx of pulmonary embolus History of DVT (deep vein thrombosis) Anemia Asthma Non-rheumatic aortic stenosis Edema, peripheral Congestive heart failure Hypertrophic cardiomyopathy Pulmonary hypertension Obesity Paroxysmal atrial fibrillation Cardiac pacemaker in situ (~2013) CAD (coronary artery disease) Aortic stenosis (HFpEF) heart failure with preserved ejection fraction Family History Father No problems noted. Mother CVD (cardiovascular disease) Surgical History History of cardiac cath History of heart surgery History of elbow surgery History of cardioversion History of permanent cardiac pacemaker placement Social History Household Members: Children Household Members Other:: son Housing: House Are you a primary acute care physician to a significant other at home: No Do you presently have visiting nurse or other home services: No Alcohol intake: current Alcohol intake frequency: holidays/special occasions only Alcohol type: wine Comment: Uses scooter Patient Tobacco Use Status: Former Tobacco user Tobacco use type: Cigarette Smoked in Last 30 Days: No Second Hand Smoke Exposure: No Use of substances other than those prescribed or required for medical reasons: No Advance Directives: Yes Advance Directives Information Provided: Yes Advance Directives on File: No Do you have a plan to hurt others: No Plan service: No Current occupational status: employed Meds Allergies Allergy/AdvReac Type Severity Reaction Status Date / Time latex Allergy Mild Redness of Verified 09/02/24 06:21 Skin seasonal Allergy Mild Itchy Eyes Uncoded 02/13/22 15:24 Active Medications: Current Medications Acetaminophen (Acetaminophen 325 Mg Tablet) 650 mg PO Q6H PRN PRN Reason: Pain, Mild (Pain Scale 1-3), fever or headache Calcium Carbonate (Calcium Carbonate 750 Mg Tab.Chew) 750 mg PO Q4H PRN PRN Reason: Heartburn Furosemide (Furosemide 20 Mg Tablet) 20 mg PO BID@0900,1800 [facility]; Protocol Magnesium Hydroxide (Milk Of Magnesia 30 Ml Oral.Susp) 30 ml PO DAILY PRN PRN Reason: Constipation Melatonin (Melatonin 3 Mg Tablet) 6 mg PO BEDTIME PRN PRN Reason: Insomnia Sodium Chloride (0.9 % Sodium Chloride Flush 3 Ml Syringe) [facility] Medications ?Medication ?Instructions ?Recorded ?Confirmed ?Last Taken ?Type albuterol sulfate 90 mcg/actuation 2 puff PO Q4H PRN Shortness Of 12/17/20 08/23/24 Unknown History aerosol inhaler Breath montelukast 10 mg tablet 10 mg PO DAILY 12/17/20 08/23/24 06/20/21 History rivaroxaban 20 mg tablet 20 mg PO DAILY 12/17/20 08/23/24 02/18/22 History Physical Exam 2 Vital Signs and Narrative: Vital Signs: Last Vital Signs Temp 97.9 F 09/02/24 06:19 Pulse 112 H 09/02/24 07:22 Resp 20 09/02/24 07:22 BP 111/82 09/02/24 07:08 Pulse Ox 97 09/02/24 07:22 O2 Del Method Nasal Cannula 09/02/24 07:22 O2 Flow Rate 1 09/02/24 07:22 BMI result Body Mass Index 26.2 General: AOx3, no acute distress, sitting upright Resp: CTA bilaterally, diminished at bases CVS: +murmur, tachycardic, regular rhythm GI: +BS, NT, no distention Skin: Warm, dry Extremities: 1+ pitting lower extremity edema Psych: Appropriate affect Results Labs 09/02/24 06:17 09/02/24 06:17 Labs: Laboratory Results - last 24 hr 09/02/24 06:17 MCV 87.0 MCH 27.0 MCHC 31.1 RDW 16.5 H Plt Count 379 MPV 9.5 Immature Gran % (Auto) 0.4 Neut % (Auto) 76.9 H Lymph % (Auto) 13.9 L [place] % (Auto) 7.0 Eos % (Auto) 0.8 Baso % (Auto) 1.0 Lymph # (Auto) 1.0 L [place] # (Auto) 0.5 Eos # (Auto) 0.1 Baso # (Auto) 0.1 Abs Immat Gran (auto) 0.03 Absolute Neuts (auto) 5.5 Absolute Nucleated RBC 0.000 Nucleated RBC % (auto) 0.0 Anion Gap 16 Estim Creat Clear Calc 49.6 Estimated GFR > 60 Random Glucose 129 H Calcium 9.0 Magnesium 2.2 Total Bilirubin 0.7 AST 39 H ALT 27 Alkaline Phosphatase 149 H Troponin I High Sens 12.0 B-Natriuretic Peptide 982 H Total Protein 7.4 Albumin 3.9 Lipase 17 Influenza Type A (PCR) NEGATIVE Influenza Type B (PCR) NEGATIVE RSV RNA Qual (PCR) NEGATIVE SARS-CoV-2 RNA (RT-PCR) NEGATIVE Imaging Radiologist's Impressions: Impressions Chest X-Ray 09/02/24 06:32 IMPRESSION: Bilateral pleural effusions, left greater than right. Cardiomegaly versus pericardial effusion. Mild interstitial lung edema. Calcified mitral valve. Electronically signed by: Allan Crawford MD 09/02/2024 07:18 AM EDT Assessment and Plan (1) Acute exacerbation of chronic heart failure: Status: Acute (2) Aortic stenosis, severe: Status: Acute (3) (HFpEF) heart failure with preserved ejection fraction: Status: Acute (4) Bilateral pleural effusion: Status: Acute Plan Patient is a 78-year-old female with a past medical history significant for HFpEF, severe aortic stenosis, pulmonary hypertension, HCM s/p septal ablation, heart block s/p ppm 2013, CAD, AFib on Xarelto, mild asthma, chronic anemia, history of DVT/PE, history of GI bleed, who presented to the this morning with CHF exacerbation. Echo on 08/12/2024 showed EF of 60-65%, severe aortic stenosis, severe pulmonary hypertension and severe mitral valve calcification. She is scheduled for a TAVR on 09/13. CHF exacerbation, with severe aortic stenosis and bilateral pleural effusions - BNP 982 - chest x-ray: Interstitial edema, bilateral pleural effusions - EKG: Ventricular paced - continue light diuresis due to severe aortic stenosis, Lasix 20 mg BID - cardiology consult - [facility] tomorrow AFib - not currently in AFib - continue amiodarone and Xarelto Pulmonary hypertension - continue verapamil Anemia - chronic, stable - monitor CBC Mild persistent asthma - no acute exacerbation - continue Singulair and albuterol as needed Full code VTE prophylaxis: Continue Xarelto Patient with acute CHF exacerbation and severe aortic stenosis with bilateral pleural effusions, requiring gentle diuresis due to the stenosis. We will need admission for at least 2 midnight stay for IV diuretics and monitoring. Quality Stroke Does the patient have a stroke diagnosis?: No VTE Prior VTE?: Yes VTE Risk Level:: Medical - moderate - high VTE Device Contraindication: Treatment Not Indicated VTE Drug Contraindication: N/A - Med Ordered
--- NOTE | 2024-09-02 09:20 | PC.NURSE ---
patient a&ox3, vss, lungs clear/diminished, rr equal/non labored.2+ pitting edema to BLE, pts pure wick was patient/draining however, patient is requesting to use a commode vs the pure wick, the tech was asked to get a commode, pt was helped oob and she felt that maybe it was a better idea to continue to use the pure wick. 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 denies pain/discomfort at this time, will continue plan of care
--- NOTE | 2024-09-02 09:30 | MHC.EDTECH ---
this tech assisted pt to bedside commode as pt stated it might be better for her, on assist, pt reported I dont know if this is a good idea , commode was successful but pt requested pure wick back in because that felt more secure. 500 ml was emptied from commode and pure wick, pt is comfortable and all needs met at this time. RN aware
--- NOTE | 2024-09-02 10:27 | PHA.MEDREC ---
Pharmacy Consult ? Medication Reconciliation Pharmacy has completed the medication reconciliation. Claims match med list, pt confirmed meds.
--- NOTE | 2024-09-02 11:52 | MHC.EDTECH ---
Patient moved from ED14 to ED17H waiting for transportation to the room upstairs.
--- NOTE | 2024-09-02 12:00 | P.CONCA_ITS ---
History of Present Illness History of Present Illness Date of Service: 09/02/24 Requesting physician: iFdel Marrero Chief complaint: CHF exacerbation, severe Narrative: 78-year-old female with severe aortic valve stenosis presenting with shortness of breath and congestive heart failure. She has been asymptomatic previously but developed shortness of breath and lower extremity edema over the last few days. Her echocardiography has shown severe aortic valve stenosis as well as [id number] tricuspid valve regurgitation. She is on amiodarone and rivaroxaban. She is also on verapamil 160 mg twice a day. She was given diuretics and is feeling better. No TAVR workup has been started yet. [facility] Past Medical History Medical History (Updated 09/02/24 @ 07:39 by ISABELLA Almazan) History of complete heart block History of blood transfusion History of GI bleed Personal history of COVID-19 Cervical disc disorder Hx of pulmonary embolus History of DVT (deep vein thrombosis) Anemia Asthma Non-rheumatic aortic stenosis Edema, peripheral Congestive heart failure Hypertrophic cardiomyopathy Pulmonary hypertension Obesity Paroxysmal atrial fibrillation Cardiac pacemaker in situ (~2013) CAD (coronary artery disease) Aortic stenosis (HFpEF) heart failure with preserved ejection fraction Family History Family History Father No problems noted. Mother CVD (cardiovascular disease) Surgical History Surgical History History of cardiac cath History of heart surgery History of elbow surgery History of cardioversion History of permanent cardiac pacemaker placement Social History Social History Household Members: Children Household Members Other:: son Housing: House Are you a primary reproductive healthcare assistant to a significant other at home: No Do you presently have visiting nurse or other home services: No Alcohol intake: current Alcohol intake frequency: holidays/special occasions only Alcohol type: wine Comment: Uses scooter Patient Tobacco Use Status: Former Tobacco user Tobacco use type: Cigarette Smoked in Last 30 Days: No Second Hand Smoke Exposure: No Use of substances other than those prescribed or required for medical reasons: No Advance Directives: Yes Advance Directives Information Provided: Yes Advance Directives on File: No Do you have a plan to hurt others: No Plan service: No Current occupational status: employed Meds Allergies Allergy/AdvReac Type Severity Reaction Status Date / Time latex Allergy Mild Redness of Verified 09/02/24 06:21 Skin seasonal Allergy Mild Itchy Eyes Uncoded 02/13/22 15:24 Active Medications: Current Medications Acetaminophen (Acetaminophen 325 Mg Tablet) 650 mg PO Q6H PRN PRN Reason: Pain, Mild (Pain Scale 1-3), fever or headache Albuterol Sulfate (Albuterol Sulfate 90 Mcg 8 Gm Inhaler) 2 puff INHALE Q4H PRN PRN Reason: Shortness Of Breath Amiodarone HCl (Amiodarone Hcl 200 Mg Tablet) 200 mg PO DAILY [facility] Calcium Carbonate (Calcium Carbonate 750 Mg Tab.Chew) 750 mg PO Q4H PRN PRN Reason: Heartburn Furosemide (Furosemide 20 Mg Tablet) 20 mg PO BID@0900,1800 [facility]; Protocol Magnesium Hydroxide (Milk Of Magnesia 30 Ml Oral.Susp) 30 ml PO DAILY PRN PRN Reason: Constipation Melatonin (Melatonin 3 Mg Tablet) 6 mg PO BEDTIME PRN PRN Reason: Insomnia Montelukast Sodium (Montelukast Sodium 10 Mg Tablet) 10 mg PO DAILY [facility] Rivaroxaban (Rivaroxaban 20 Mg Tablet) 20 mg PO DAILY@1700 [facility] Sodium Chloride (0.9 % Sodium Chloride Flush 3 Ml Syringe) 3 ml IVFLUSH QSHIFT [facility] Verapamil HCl (Verapamil Hcl 80 Mg Tablet) 160 mg PO BID [facility]; Protocol Home Medications ?Medication ?Instructions ?Recorded ?Confirmed ?Last Taken ?Type albuterol sulfate 90 mcg/actuation 2 puff PO Q4H PRN Shortness Of 12/17/20 09/02/24 Unknown History aerosol inhaler Breath montelukast 10 mg tablet 10 mg PO DAILY 12/17/20 09/02/24 09/01/24 History rivaroxaban 20 mg tablet 20 mg PO DAILY@1700 12/17/20 09/02/24 09/01/24 History acetaminophen 325 mg tablet 650 mg PO Q4H PRN Pain 09/02/24 09/02/24 Unknown History Physical Exam 2 Vital Signs: Vital Signs: Last Vital Signs Temp 97.9 F 09/02/24 06:19 Pulse 75 09/02/24 11:51 Resp 14 09/02/24 11:51 BP 151/84 H 09/02/24 11:51 Pulse Ox 96 09/02/24 11:51 O2 Del Method Room Air 09/02/24 11:51 O2 Flow Rate 1 09/02/24 07:22 BMI result Body Mass Index 26.2 GENERAL APPEARANCE: in no acute distress, pleasant. NECK: no carotid bruit, ++ jugular venous distention prominent V-wave due to tricuspid regurgitation. SKIN: no suspicious lesions, warm and dry. HEART: Ejection systolic murmur aortic area with absent 2nd heart sound, regular rate and rhythm. LUNGS: clear to auscultation bilaterally. ABDOMEN: soft, nontender. EXTREMITIES: + edema. PERIPHERAL PULSES: equal. NEUROLOGIC: No gross deficits, AAO X 3 Objective Labs and Meds 09/02/24 06:17 09/02/24 06:17 Lab results: Laboratory Results - last 24 hr 09/02/24 06:17 WBC 7.1 RBC 4.07 L Hgb 11.0 L Hct 35.4 L MCV 87.0 MCH 27.0 MCHC 31.1 RDW 16.5 H Plt Count 379 MPV 9.5 Immature Gran % (Auto) 0.4 Neut % (Auto) 76.9 H Lymph % (Auto) 13.9 L [place] % (Auto) 7.0 Eos % (Auto) 0.8 Baso % (Auto) 1.0 Lymph # (Auto) 1.0 L [place] # (Auto) 0.5 Eos # (Auto) 0.1 Baso # (Auto) 0.1 Abs Immat Gran (auto) 0.03 Absolute Neuts (auto) 5.5 Absolute Nucleated RBC 0.000 Nucleated RBC % (auto) 0.0 Sodium 139 Potassium 4.7 Chloride 107 Carbon Dioxide 21 L Anion Gap 16 BUN 25 H Creatinine 0.86 Estim Creat Clear Calc 49.6 Estimated GFR > 60 Random Glucose 129 H Calcium 9.0 Magnesium 2.2 Total Bilirubin 0.7 AST 39 H ALT 27 Alkaline Phosphatase 149 H Troponin I High Sens 12.0 B-Natriuretic Peptide 982 H Total Protein 7.4 Albumin 3.9 Lipase 17 Influenza Type A (PCR) NEGATIVE Influenza Type B (PCR) NEGATIVE RSV RNA Qual (PCR) NEGATIVE SARS-CoV-2 RNA (RT-PCR) NEGATIVE Imaging Radiologist's impression: Impressions Chest X-Ray 09/02/24 06:32 IMPRESSION: Bilateral pleural effusions, left greater than right. Cardiomegaly versus pericardial effusion. Mild interstitial lung edema. Calcified mitral valve. Electronically signed by: Allan Crawford MD 09/02/2024 07:18 AM EDT RP Assessment and Plan (1) Aortic stenosis, severe: Status: Acute (2) Acute exacerbation of chronic heart failure: Status: Acute Plan Pleasant 78 year female presenting with new onset congestive heart failure. She has known history of aortic valve stenosis and moderate severe tricuspid valve regurgitation. Diuresing and clinically improving. I have explained to her that she needs workup for transcatheter aortic valve replacement. We will refer her to heart team at [facility] and try to expedite her appointment. I think she clinically looks reasonable and maybe able to go home after management of heart failure. Thank you for allowing me to participate in the care of your patient. Please feel free to contact me if you have any questions. Procedures Date of Service Date of Service: 09/02/24
[2024-09-02] MEDS: Amiodarone HCL 200 MG TABLET PO (12:20)
--- NOTE | 2024-09-02 12:21 | PC.NURSE ---
pharmacy was called for missing med which was not brought to the ed prior to her departure
[2024-09-02] MEDS: Rivaroxaban 20 MG TABLET PO (17:02)
[2024-09-02] MEDS: Furosemide 20 MG TABLET PO (17:02)
[2024-09-02] MEDS: 0.9 % Sodium Chloride Flush 3 ML SYRINGE IVFLUSH ×2 (17:03→23:56)
[2024-09-02] MEDS: VerapamiL HCL 80 MG TABLET 160 MG PO (20:21)
[2024-09-03] VITALS (9 sets, daily range): BP systolic 114–160; BP diastolic 65–81; PULSE 69–72; RESP 17–20; TEMP 36.1–36.9; O2SAT 93–100
[2024-09-03] MEDS: Furosemide 20 MG TABLET PO (08:04)
[2024-09-03 08:05] LABS: Alanine Aminotransferase 20 U/L (0-31); Albumin Level 3.5 g/dL (3.5-5.0); Alkaline Phosphatase 125 U/L (39-117); Aspartate Amino Transferase 20 U/L (5-31); Bilirubin Total 0.6 mg/dL (0.0-1.0); Blood Urea Nitrogen 19 mg/dL (9-16); Calcium 8.9 mg/dL (8.4-10.2); Creatinine Clr Calc Pharmacy 46.8; Estimated Glomerular Filt Rate 60; Glucose Random 102 mg/dL (60-115); Total Protein 6.6 g/dL (6.5-8.0)
[2024-09-03] MEDS: Amiodarone HCL 200 MG TABLET PO (08:05)
[2024-09-03] MEDS: 0.9 % Sodium Chloride Flush 3 ML SYRINGE IVFLUSH ×2 (08:05→16:51)
[2024-09-03] MEDS: VerapamiL HCL 80 MG TABLET 160 MG PO (08:05)
[2024-09-03] MEDS: Montelukast Sodium 10 MG TABLET PO (08:05)
[2024-09-03 08:14] LABS: Anion Gap 13 (12-20); Carbon Dioxide 28 mmol/L (22-29); Chloride 107 mmol/L (96-108); Potassium 4.6 mmol/L (3.3-5.1); Sodium 143 mmol/L (135-145)
--- NOTE | 2024-09-03 09:11 | P.PNIM_ITS ---
Subjective Subjective Date of Service: 09/03/24 Interval History: still sob though a bit better Physical Exam 2 Vital Signs: Vital Signs: Last Vital Signs Temp 97.8 F 09/03/24 07:25 Pulse 71 09/03/24 08:05 Resp 19 09/03/24 07:25 BP 139/72 09/03/24 08:05 Pulse Ox 100 09/03/24 07:25 O2 Del Method Nasal Cannula 09/03/24 07:25 O2 Flow Rate 1 09/03/24 07:25 BMI result Body Mass Index 26.2 General: AO X 3, no acute distress Resp: CTA bilateral, no accessory muscles used CVS: S1,S2,RRR, murmur GI: soft, non tender, non distended Neuro: motor grossly intact, alert Psych: appropriate affect, appropriate insight Objective Data Active Medications Acetaminophen (Acetaminophen 325 Mg Tablet) 650 mg PO Q6H PRN PRN Reason: Pain, Mild (Pain Scale 1-3), fever or headache Albuterol Sulfate (Albuterol Sulfate 90 Mcg 8 Gm Inhaler) 2 puff INHALE Q4H PRN PRN Reason: Shortness Of Breath Amiodarone HCl (Amiodarone Hcl 200 Mg Tablet) 200 mg PO DAILY [facility] Last Admin: 09/03/24 08:05 Dose: 200 mg Documented By: LAINE Calcium Carbonate (Calcium Carbonate 750 Mg Tab.Chew) 750 mg PO Q4H PRN PRN Reason: Heartburn Furosemide (Furosemide 20 Mg Tablet) 20 mg PO BID@0900,1800 [facility]; Protocol Last Admin: 09/03/24 08:04 Dose: 20 mg Documented By: LAINE Magnesium Hydroxide (Milk Of Magnesia 30 Ml Oral.Susp) 30 ml PO DAILY PRN PRN Reason: Constipation Melatonin (Melatonin 3 Mg Tablet) 6 mg PO BEDTIME PRN PRN Reason: Insomnia Montelukast Sodium (Montelukast Sodium 10 Mg Tablet) 10 mg PO DAILY [facility] Last Admin: 09/03/24 08:05 Dose: 10 mg Documented By: LAINE Rivaroxaban (Rivaroxaban 20 Mg Tablet) 20 mg PO DAILY@1700 [facility] Last Admin: 09/02/24 17:02 Dose: 20 mg Documented By: LAINE Sodium Chloride (0.9 % Sodium Chloride Flush 3 Ml Syringe) 3 ml IVFLUSH QSHIFT [facility] Last Admin: 09/03/24 08:05 Dose: 3 ml Documented By: LAINE Verapamil HCl (Verapamil Hcl 80 Mg Tablet) 160 mg PO BID [facility]; Protocol Last Admin: 09/03/24 08:05 Dose: 160 mg Documented By: LAINE Labs 09/02/24 06:17 09/03/24 06:46 Labs: Laboratory Results - last 24 hr 09/03/24 06:46 Anion Gap 13 Estim Creat Clear Calc 46.8 Estimated GFR 60 Random Glucose 102 Calcium 8.9 Total Bilirubin 0.6 AST 20 ALT 20 Alkaline Phosphatase 125 H Total Protein 6.6 Albumin 3.5 Assessment and Plan (1) Aortic stenosis, severe: Status: Acute Plan 78F PMH hfpef, severe , pulm htn, HCM s/p septal ablation, heart block s/p PPM, CAD, pafib on xarelto, mild intermittent asthma, chronic anemia, history of DVT/PE, presented with sob Acute hypoxic respiratory failure secondary to acute on chronic diastolic CHF with severe aortic stenosis Continue IV Lasix, wean O2 as tolerated, cardio appreciated plan to follow up closely outpatient for TAVR Paroxysmal atrial fibrillation Continue amiodarone and Xarelto Mild intermittent asthma Continue albuterol, Singulair History of PE Continue Xarelto Full code reason for continued hospitalization: IV diuresis, still short of breath Quality Stroke Does the patient have a stroke diagnosis?: No VTE Prior VTE?: Yes VTE Risk Level:: Medical - moderate - high VTE Device Contraindication: Treatment Not Indicated VTE Drug Contraindication: N/A - Med Ordered
--- NOTE | 2024-09-03 11:38 | PM.PNCARD ---
Subjective Subjective Date of Service: 09/03/24 Interval history: Seen and examined at bedside. SOB after taking the oxygen off. Started on nasal cannula again. Physical Exam Vital Signs: Last Vital Signs Temp 97.0 F 09/03/24 11:19 Pulse 70 09/03/24 11:19 Resp 17 09/03/24 11:19 BP 120/67 09/03/24 11:19 Pulse Ox 97 09/03/24 11:19 O2 Del Method Room Air, Nasal Cannula 09/03/24 11:19 O2 Flow Rate 1 09/03/24 07:25 BMI result Body Mass Index 26.2 GENERAL APPEARANCE: in no acute distress, pleasant. NECK: no carotid bruit, ++ jugular venous distention prominent V-wave due to tricuspid regurgitation. SKIN: no suspicious lesions, warm and dry. HEART: Ejection systolic murmur aortic area with absent 2nd heart sound, regular rate and rhythm. LUNGS: clear to auscultation bilaterally. ABDOMEN: soft, nontender. EXTREMITIES: + edema. PERIPHERAL PULSES: equal. NEUROLOGIC: No gross deficits, AAO X 3 Objective Labs and Meds 09/02/24 06:17 09/03/24 06:46 Lab results: Laboratory Results - last 24 hr 09/03/24 06:46 Sodium 143 Potassium 4.6 Chloride 107 Carbon Dioxide 28 Anion Gap 13 BUN 19 H Creatinine 0.91 Estim Creat Clear Calc 46.8 Estimated GFR 60 Random Glucose 102 Calcium 8.9 Total Bilirubin 0.6 AST 20 ALT 20 Alkaline Phosphatase 125 H Total Protein 6.6 Albumin 3.5 Progress Note: A&P Assessment and plan (1) Aortic stenosis, severe: Status: Acute (2) Bilateral pleural effusion: Status: Acute (3) Tricuspid regurgitation: Status: Acute Plan 78 female with severe and mod to severe TR presenting with new onset CHF. Still overloaded and SOB. Give Lasix 40 mg IV now. Monitor I and O's. She has significant TR by exam and probably the pleural effusions are due to elevated right sided pressures. She has appointment next week to see Dr Henderson, Sep 07. I have given info to the patient. Decrease Verapamil to 80 mg BID. We will follow along with you. Time Spent With Patient Time: Total time managing care of this patient today ____ minutes. Progress Note: Quality Stroke Does the patient have a stroke diagnosis?: No Procedures Date of Service Date of Service: 09/03/24
[2024-09-03] MEDS: Furosemide 40 MG/4 ML VIAL IVPUSH (12:18)
--- NOTE | 2024-09-03 13:26 | MHC.CM.PN ---
PT REPORTS SHE LIVES WITH HER SON AND IS INDEPENDENT WITH CARE SHE HAS NO DME AND NO SERVICES HCP ON FILE PCP: [facility] DELIVERED DCP: HOME WITH F/U AT [facility] PT UNSURE IF SHE WILL HAVE A RIDE PT CONCERNED ABOUT BEING ABLE TO GET [place] [facility] [place] SHE IS REQUESTING ASSISTANCE TO CONTACT THEM ON THURSDAY TO DETERMINE IF THEY HAVE ANY TRANSPORTATION ASSISTANCE
[2024-09-03] MEDS: Rivaroxaban 20 MG TABLET PO (16:51)
[2024-09-03] MEDS: VerapamiL HCL 80 MG TABLET PO (20:08)
[2024-09-04] VITALS (10 sets, daily range): BP systolic 117–162; BP diastolic 69–85; PULSE 70–80; RESP 18–24; TEMP 36.1–37.3; O2SAT 93–99
[2024-09-04] MEDS: 0.9 % Sodium Chloride Flush 3 ML SYRINGE IVFLUSH ×4 (00:31→19:56)
[2024-09-04 07:07] LABS: Alanine Aminotransferase 17 U/L (0-31); Albumin Level 3.6 g/dL (3.5-5.0); Alkaline Phosphatase 126 U/L (39-117); Anion Gap 13 (12-20); Aspartate Amino Transferase 16 U/L (5-31); Bilirubin Total 0.7 mg/dL (0.0-1.0); Blood Urea Nitrogen 20 mg/dL (9-16); Calcium 9.1 mg/dL (8.4-10.2); Carbon Dioxide 28 mmol/L (22-29); Chloride 105 mmol/L (96-108); Estimated Glomerular Filt Rate > 60; Glucose Fasting 91 mg/dL (60-99); Glucose Random 91 mg/dL (60-115); Hematocrit 36.4 % (37.0-47.0); Hemoglobin 11.2 g/dl (12.0-16.0); Mean Corpuscular HGB Conc 30.8 g/dl (31.0-35.0); Mean Corpuscular Hemoglobin 27.1 pg (27.0-33.0); Mean Corpuscular Volume 87.9 fL (80.0-98.0); Mean Platelet Volume 9.5 fL (9.4-12.3); Platelet Count 322 X10*3/uL (160-400); Potassium 4.1 mmol/L (3.3-5.1); Red Blood Count 4.14 X10*6/uL (4.20-5.50); Red Cell Distribution Width 16.2 % (11.0-16.0); Sodium 142 mmol/L (135-145); Total Protein 6.9 g/dL (6.5-8.0); White Blood Count 5.4 X10*3/uL (4.8-10.8)
--- NOTE | 2024-09-04 08:24 | P.PNIM_ITS ---
Subjective Subjective Date of Service: 09/04/24 Interval History: Shortness of breath improved at rest but still has on mild exertion Physical Exam 2 Vital Signs: Vital Signs: Last Vital Signs Temp 98.1 F 09/04/24 08:00 Pulse 72 09/04/24 08:00 Resp 22 H 09/04/24 08:00 BP 140/85 H 09/04/24 08:00 Pulse Ox 95 09/04/24 08:00 O2 Del Method Room Air 09/04/24 08:00 O2 Flow Rate 1 09/03/24 07:25 BMI result Body Mass Index 26.2 GENERAL APPEARANCE: in no acute distress, pleasant. NECK: no carotid bruit, ++ jugular venous distention prominent V-wave due to tricuspid regurgitation. SKIN: no suspicious lesions, warm and dry. HEART: Ejection systolic murmur aortic area with absent 2nd heart sound, regular rate and rhythm. LUNGS: clear to auscultation bilaterally. ABDOMEN: soft, nontender. EXTREMITIES: + edema. PERIPHERAL PULSES: equal. NEUROLOGIC: No gross deficits, AAO X 3 Objective Data Active Medications Acetaminophen (Acetaminophen 325 Mg Tablet) 650 mg PO Q6H PRN PRN Reason: Pain, Mild (Pain Scale 1-3), fever or headache Albuterol Sulfate (Albuterol Sulfate 90 Mcg 8 Gm Inhaler) 2 puff INHALE Q4H PRN PRN Reason: Shortness Of Breath Amiodarone HCl (Amiodarone Hcl 200 Mg Tablet) 200 mg PO DAILY [facility] Last Admin: 09/03/24 08:05 Dose: 200 mg Documented By: LAINE Calcium Carbonate (Calcium Carbonate 750 Mg Tab.Chew) 750 mg PO Q4H PRN PRN Reason: Heartburn Magnesium Hydroxide (Milk Of Magnesia 30 Ml Oral.Susp) 30 ml PO DAILY PRN PRN Reason: Constipation Melatonin (Melatonin 3 Mg Tablet) 6 mg PO BEDTIME PRN PRN Reason: Insomnia Montelukast Sodium (Montelukast Sodium 10 Mg Tablet) 10 mg PO DAILY [facility] Last Admin: 09/03/24 08:05 Dose: 10 mg Documented By: LAINE Rivaroxaban (Rivaroxaban 20 Mg Tablet) 20 mg PO DAILY@1700 [facility] Last Admin: 09/03/24 16:51 Dose: 20 mg Documented By: LAINE Sodium Chloride (0.9 % Sodium Chloride Flush 3 Ml Syringe) 3 ml IVFLUSH QSHIFT [facility] Last Admin: 09/04/24 00:31 Dose: 3 ml Documented By: SEBASTIAN Verapamil HCl (Verapamil Hcl 80 Mg Tablet) 80 mg PO BID [facility]; Protocol Last Admin: 09/03/24 20:08 Dose: 80 mg Documented By: SEBASTIAN Labs 09/04/24 06:26 09/04/24 06:26 Labs: Laboratory Results - last 24 hr 09/04/24 06:26 MCV 87.9 MCH 27.1 MCHC 30.8 L RDW 16.2 H Plt Count 322 MPV 9.5 Absolute Nucleated RBC 0.000 Nucleated RBC % (auto) 0.0 Anion Gap 13 Estim Creat Clear Calc 49.0 Estimated GFR > 60 Random Glucose 91 Fasting Glucose 91 Calcium 9.1 Total Bilirubin 0.7 AST 16 ALT 17 Alkaline Phosphatase 126 H Total Protein 6.9 Albumin 3.6 Assessment and Plan (1) Aortic stenosis, severe: Status: Acute Plan 78F PMH hfpef, severe , pulm htn, HCM s/p septal ablation, heart block s/p PPM, CAD, pafib on xarelto, mild intermittent asthma, chronic anemia, history of DVT/PE, presented with sob Acute hypoxic respiratory failure secondary to acute on chronic diastolic CHF with severe aortic stenosis Continue IV Lasix, wean O2 as tolerated, cardio appreciated plan to follow up closely outpatient for TAVR Paroxysmal atrial fibrillation Continue amiodarone and Xarelto Mild intermittent asthma Continue albuterol, Singulair History of PE Continue Xarelto PT eval Full code reason for continued hospitalization: PT eval Quality Stroke Does the patient have a stroke diagnosis?: No VTE Prior VTE?: Yes VTE Risk Level:: Medical - moderate - high VTE Device Contraindication: Treatment Not Indicated VTE Drug Contraindication: N/A - Med Ordered
[2024-09-04] MEDS: VerapamiL HCL 80 MG TABLET PO ×2 (08:45→19:56)
[2024-09-04] MEDS: Amiodarone HCL 200 MG TABLET PO (08:46)
[2024-09-04] MEDS: Montelukast Sodium 10 MG TABLET PO (08:46)
--- NOTE | 2024-09-04 09:20 | PM.PNCARD ---
Subjective Subjective Date of Service: 09/04/24 Interval history: Seen examined at bedside. Feeling better. Physical Exam Vital Signs: Last Vital Signs Temp 98.1 F 09/04/24 08:00 Pulse 72 09/04/24 08:45 Resp 22 H 09/04/24 08:00 BP 140/85 H 09/04/24 08:45 Pulse Ox 95 09/04/24 08:00 O2 Del Method Room Air 09/04/24 08:00 O2 Flow Rate 1 09/03/24 07:25 BMI result Body Mass Index 26.2 GENERAL APPEARANCE: in no acute distress, pleasant. NECK: no carotid bruit, + jugular venous distention prominent V-wave due to tricuspid regurgitation. SKIN: no suspicious lesions, warm and dry. HEART: Ejection systolic murmur aortic area with absent 2nd heart sound, regular rate and rhythm. LUNGS: clear to auscultation bilaterally. ABDOMEN: soft, nontender. EXTREMITIES: No edema. PERIPHERAL PULSES: equal. NEUROLOGIC: No gross deficits, AAO X 3 Objective Labs and Meds 09/04/24 06:26 09/04/24 06:26 Lab results: Laboratory Results - last 24 hr 09/04/24 06:26 WBC 5.4 RBC 4.14 L Hgb 11.2 L Hct 36.4 L MCV 87.9 MCH 27.1 MCHC 30.8 L RDW 16.2 H Plt Count 322 MPV 9.5 Absolute Nucleated RBC 0.000 Nucleated RBC % (auto) 0.0 Sodium 142 Potassium 4.1 Chloride 105 Carbon Dioxide 28 Anion Gap 13 BUN 20 H Creatinine 0.87 Estim Creat Clear Calc 49.0 Estimated GFR > 60 Random Glucose 91 Fasting Glucose 91 Calcium 9.1 Total Bilirubin 0.7 AST 16 ALT 17 Alkaline Phosphatase 126 H Total Protein 6.9 Albumin 3.6 Progress Note: A&P Assessment and plan (1) Aortic stenosis, severe: Status: Acute (2) Bilateral pleural effusion: Status: Acute (3) Tricuspid regurgitation: Status: Acute Plan 78 female with severe and mod to severe TR presenting with new onset CHF. Clinically she is euvolemic at this stage. Stop IV diuretics and start on Lasix 40 mg p.o. b.i.d. She has appointment next week to see Dr Henderson, Sep 07. I have given info to the patient. Decreased Verapamil to 80 mg BID. Thank you for allowing me to participate in the care of your patient. Please feel free to contact me if you have any questions. Time Spent With Patient Time: Total time managing care of this patient today ____ minutes. Progress Note: Quality Stroke Does the patient have a stroke diagnosis?: No Procedures Date of Service Date of Service: 09/04/24
[2024-09-04] MEDS: Furosemide 40 MG TABLET PO ×2 (10:13→17:30)
[2024-09-04] MEDS: Rivaroxaban 20 MG TABLET PO (17:30)
[2024-09-05] VITALS (9 sets, daily range): BP systolic 125–157; BP diastolic 76–88; PULSE 70–74; RESP 18–20; TEMP 36–37.2; O2SAT 94–97
[2024-09-05 07:38] LABS: Hematocrit 33.8 % (37.0-47.0); Hemoglobin 10.5 g/dl (12.0-16.0); Mean Corpuscular HGB Conc 31.1 g/dl (31.0-35.0); Mean Corpuscular Volume 86.9 fL (80.0-98.0); Mean Platelet Volume 9.1 fL (9.4-12.3); Platelet Count 332 X10*3/uL (160-400); Red Blood Count 3.89 X10*6/uL (4.20-5.50); White Blood Count 5.2 X10*3/uL (4.8-10.8)
[2024-09-05 07:45] LABS: Alanine Aminotransferase 12 U/L (0-31); Albumin Level 3.6 g/dL (3.5-5.0); Alkaline Phosphatase 119 U/L (39-117); Anion Gap 12 (12-20); Aspartate Amino Transferase 19 U/L (5-31); Blood Urea Nitrogen 21 mg/dL (9-16); Carbon Dioxide 27 mmol/L (22-29); Chloride 103 mmol/L (96-108); Creatinine Clr Calc Pharmacy 50.2; Estimated Glomerular Filt Rate > 60; Glucose Fasting 94 mg/dL (60-99); Glucose Random 94 mg/dL (60-115); Potassium 3.8 mmol/L (3.3-5.1); Sodium 138 mmol/L (135-145); Total Protein 6.7 g/dL (6.5-8.0)
[2024-09-05 08:15] LABS: B Type Natriuretic Peptide 339 pg/mL (<100)
--- NOTE | 2024-09-05 08:38 | P.PNIM_ITS ---
Subjective Subjective Date of Service: 09/05/24 Interval History: feeling much better Physical Exam 2 Vital Signs: Vital Signs: Last Vital Signs Temp 97.8 F 09/05/24 08:00 Pulse 72 09/05/24 08:00 Resp 18 09/05/24 08:00 BP 177/83 H 09/05/24 08:00 Pulse Ox 96 09/05/24 08:00 O2 Del Method Room Air 09/05/24 08:00 O2 Flow Rate 2 09/04/24 19:46 BMI result Body Mass Index 26.2 GENERAL APPEARANCE: in no acute distress, pleasant. NECK: no carotid bruit, + jugular venous distention prominent V-wave due to tricuspid regurgitation. SKIN: no suspicious lesions, warm and dry. HEART: Ejection systolic murmur aortic area with absent 2nd heart sound, regular rate and rhythm. LUNGS: clear to auscultation bilaterally. ABDOMEN: soft, nontender. EXTREMITIES: No edema. PERIPHERAL PULSES: equal. NEUROLOGIC: No gross deficits, AAO X 3 Objective Data Active Medications Acetaminophen (Acetaminophen 325 Mg Tablet) 650 mg PO Q6H PRN PRN Reason: Pain, Mild (Pain Scale 1-3), fever or headache Albuterol Sulfate (Albuterol Sulfate 90 Mcg 8 Gm Inhaler) 2 puff INHALE Q4H PRN PRN Reason: Shortness Of Breath Amiodarone HCl (Amiodarone Hcl 200 Mg Tablet) 200 mg PO DAILY [facility] Last Admin: 09/04/24 08:46 Dose: 200 mg Documented By: LAINE Calcium Carbonate (Calcium Carbonate 750 Mg Tab.Chew) 750 mg PO Q4H PRN PRN Reason: Heartburn Furosemide (Furosemide 40 Mg Tablet) 40 mg PO BID@0900,1800 [facility]; Protocol Last Admin: 09/04/24 17:30 Dose: 40 mg Documented By: LAINE Magnesium Hydroxide (Milk Of Magnesia 30 Ml Oral.Susp) 30 ml PO DAILY PRN PRN Reason: Constipation Melatonin (Melatonin 3 Mg Tablet) 6 mg PO BEDTIME PRN PRN Reason: Insomnia Montelukast Sodium (Montelukast Sodium 10 Mg Tablet) 10 mg PO DAILY [facility] Last Admin: 09/04/24 08:46 Dose: 10 mg Documented By: LAINE Rivaroxaban (Rivaroxaban 20 Mg Tablet) 20 mg PO DAILY@1700 [facility] Last Admin: 09/04/24 17:30 Dose: 20 mg Documented By: LAINE Sodium Chloride (0.9 % Sodium Chloride Flush 3 Ml Syringe) 3 ml IVFLUSH QSHIFT [facility] Last Admin: 09/04/24 19:56 Dose: 3 ml Documented By: HANNAH Verapamil HCl (Verapamil Hcl 80 Mg Tablet) 80 mg PO BID [facility]; Protocol Last Admin: 09/04/24 19:56 Dose: 80 mg Documented By: HANNAH Labs 09/05/24 07:19 09/05/24 07:19 Labs: Laboratory Results - last 24 hr 09/05/24 07:19 MCV 86.9 MCH 27.0 MCHC 31.1 RDW 16.0 Plt Count 332 MPV 9.1 L Absolute Nucleated RBC 0.000 Nucleated RBC % (auto) 0.0 Anion Gap 12 Estim Creat Clear Calc 50.2 Estimated GFR > 60 Random Glucose 94 Fasting Glucose 94 Calcium 9.0 Magnesium 2.0 Total Bilirubin 1.0 AST 19 ALT 12 Alkaline Phosphatase 119 H B-Natriuretic Peptide 339 H Total Protein 6.7 Albumin 3.6 Assessment and Plan (1) Aortic stenosis, severe: Status: Acute Plan 78F PMH hfpef, severe , pulm htn, HCM s/p septal ablation, heart block s/p PPM, CAD, pafib on xarelto, mild intermittent asthma, chronic anemia, history of DVT/PE, presented with sob Acute hypoxic respiratory failure secondary to acute on chronic diastolic CHF with severe aortic stenosis changed to po Lasix, wean O2 as tolerated, cardio appreciated plan to follow up closely outpatient for TAVR Paroxysmal atrial fibrillation Continue amiodarone and Xarelto Mild intermittent asthma Continue albuterol, Singulair History of PE Continue Xarelto PT eval Full code reason for continued hospitalization: PT eval Quality Stroke Does the patient have a stroke diagnosis?: No VTE Prior VTE?: Yes VTE Risk Level:: Medical - moderate - high VTE Device Contraindication: Treatment Not Indicated VTE Drug Contraindication: N/A - Med Ordered
--- NOTE | 2024-09-05 08:40 | PM.DS ---
DS: Providers Provider Date of Service: 09/05/24 Date of admission: 09/02/24 08:32 Date of discharge: 09/05/24 Primary care physician: Jerome Guido MD Consults: 09/02/24 08:58 Consult to Cardiology Routine Consulting Provider: [facility] [place] [facility] Reason for consultation: CHF exacerbation, severe Has provider been notified: No DS: Diagnosis Discharge Diagnosis (1) Aortic stenosis, severe: Status: Acute DS: Summary Hospital Course Hospital Course: inti 78-year-old female with a past medical history significant for HFpEF, severe aortic stenosis, pulmonary hypertension, HCM s/p septal ablation, heart block s/p ppm 2013, CAD, AFib on Xarelto, mild asthma, chronic anemia, history of DVT/PE, history of GI bleed, who presented to the this morning with worsening shortness of breath and dyspnea at rest starting yesterday. Prior to this about a week before she was starting to have shortness of breath with exertion, lower extremity edema and orthopnea. At baseline she does not take any diuretics, she has been off of them for almost a year and doing well. She recently was treated for a sinus infection however symptoms have resolved aside from a runny nose. She denies headache, chest pain, cough, fever, chills, abdominal pain, diarrhea, nausea, vomiting, constipation. She is followed by Dr. Stuart outpatient and is scheduled for a TAVR on 09/13. Recent echo with EF of 60-65%, severe aortic stenosis, severe pulmonary hypertension and severe mitral valve calcification. hospital course: Patient was admitted for acute hypoxic respiratory failure secondary to acute on chronic diastolic CHF with severe aortic stenosis was treated with IV Lasix and diuresed well and transitioned to p.o. Lasix 40 mg b.i.d.. She was seen by Cardiology recommended close follow-up to arrange for TAVR. For paroxysmal atrial fibrillation was continued on amiodarone and Xarelto. For mild intermittent asthma was continued on albuterol and Singulair. For history of PE was continued on Xarelto. For hypertension verapamil was decreased to 80 mg b.i.d.. Patient was seen by physical therapy who recommended home with services. Time Attestation Discharge Coordination Time (in mins): 34 Quality: Safe Use of Opioids Does Pt have an Active Cancer Diagnosis on the Problem List?: No Quality: Stroke Does the patient have a stroke diagnosis?: No Physical Exam Vital Signs: Vital Signs: Last Vital Signs Temp 97.8 F 09/05/24 08:00 Pulse 72 09/05/24 08:00 Resp 18 09/05/24 08:00 BP 177/83 H 09/05/24 08:00 Pulse Ox 96 09/05/24 08:00 O2 Del Method Room Air 09/05/24 08:00 O2 Flow Rate 2 09/04/24 19:46 BMI result Body Mass Index 26.2 General: AO X 3, no acute distress Resp: CTA bilateral, no accessory muscles used CVS: S1,S2,RRR, murmur GI: soft, non tender, non distended Neuro: motor grossly intact, alert Psych: appropriate affect, appropriate insight DS: Data Data Completed and Pending Labs on day of discharge: Laboratory Results - last 24 hr 09/05/24 07:19 WBC 5.2 RBC 3.89 L Hgb 10.5 L Hct 33.8 L MCV 86.9 MCH 27.0 MCHC 31.1 RDW 16.0 Plt Count 332 MPV 9.1 L Absolute Nucleated RBC 0.000 Nucleated RBC % (auto) 0.0 Sodium 138 Potassium 3.8 Chloride 103 Carbon Dioxide 27 Anion Gap 12 BUN 21 H Creatinine 0.85 Estim Creat Clear Calc 50.2 Estimated GFR > 60 Random Glucose 94 Fasting Glucose 94 Calcium 9.0 Magnesium 2.0 Total Bilirubin 1.0 AST 19 ALT 12 Alkaline Phosphatase 119 H B-Natriuretic Peptide 339 H Total Protein 6.7 Albumin 3.6 Discharge Plan Discharge Anticipated Discharge Date/Time: 09/05/24 08:38 Patient Disposition: Home, Self-Care Discharge Diagnosis: chf, Referrals: Jerome Guido MD [Primary Care Provider] - 1 Week Discharge Medications: New furosemide 40 mg Tablet 40 mg PO BID@0900,1800 Qty: 180 0RF Protocol: Hold for SBP< HOLD for SBP < : 90 verapamil 80 mg Tablet 80 mg PO BID Qty: 0 0RF Protocol: Hold for SBP/HR < HOLD for SBP < : 90 HOLD for HR < : 60 Continued acetaminophen 325 mg Tablet 650 mg PO Q4H PRN (Reason: Pain) albuterol sulfate 90 mcg/actuation HFA aerosol inhaler 2 puff PO Q4H PRN (Reason: Shortness Of Breath) rivaroxaban 20 mg tablet 20 mg PO DAILY@1700 montelukast 10 mg tablet 10 mg PO DAILY amiodarone 200 mg tablet 200 mg PO DAILY Qty: 30 5RF Discontinued verapamil 80 mg tablet 160 mg PO BID Qty: 360 0RF Diet: Advance to usual diet Activity on Discharge: As tolerated Stand Alone Forms: Patient Portal Discharge page Print Language: Mohawk Care Plan Goals: Manage CHF and aortic stenosis Health Concerns: CHF and aortic stenosis Plan of Treatment: Decrease verapamil to 80 mg twice daily, start Lasix 40 mg twice daily, follow-up closely for planning TAVR Assessment: See above
[2024-09-05] MEDS: 0.9 % Sodium Chloride Flush 3 ML SYRINGE IVFLUSH ×2 (09:12→17:10)
[2024-09-05] MEDS: Montelukast Sodium 10 MG TABLET PO (09:12)
[2024-09-05] MEDS: VerapamiL HCL 80 MG TABLET PO ×2 (09:12→21:12)
[2024-09-05] MEDS: Furosemide 40 MG TABLET PO ×2 (09:12→17:10)
[2024-09-05] MEDS: Amiodarone HCL 200 MG TABLET PO (09:12)
--- NOTE | 2024-09-05 09:42 | PM.PNCARD ---
Subjective Subjective Date of Service: 09/05/24 Interval history: Patient states that she is feeling better. Shortness of breath is improved. Review of Systems Review of Systems Yes all other systems are reviewed and are negative Constitutional: Reports as per HPI and Reports no additional constitutional complaints Eyes: Reports as per HPI and Denies no additional eye complaints Denies system reviewed and no additional complaints, except as documented and Reports as per HPI Cardiovascular: Reports as per HPI, Reports no additional cardiovascular complaints, Denies acrocyanosis, Denies cool extremities, Denies chest pain, Denies leg edema, Denies lightheadedness, Denies palpitations and Denies dyspnea Respiratory: Reports as per HPI, Denies no additional respiratory complaints and Denies dyspnea Gastrointestinal: Reports as per HPI and Denies no additional gastrointestinal complaints Genitourinary: Reports as per HPI Musculoskeletal: Reports no additional musculoskeletal complaints and Reports as per HPI Skin/Breast: Reports system reviewed and no additional complaints, except as docu Reports system reviewed and no additional complaints, except as documented and Reports as per HPI Psychiatric: Reports no additional psychiatric complaints and Reports as per HPI Endocrine: Reports no additional endocrine complaints, Reports as per HPI and Denies palpitations Hematologic/Lymphatic: Reports no additional hematologic/lymphatic complaints and Reports as per HPI Allergic/Immunologic: Reports no additional allergic/immunologic complaints and Reports as per HPI Physical Exam Vital Signs: Last Vital Signs Temp 97.8 F 09/05/24 08:00 Pulse 72 09/05/24 08:00 Resp 18 09/05/24 08:00 BP 138/76 09/05/24 09:12 Pulse Ox 96 09/05/24 08:00 O2 Del Method Room Air 09/05/24 08:00 O2 Flow Rate 2 09/04/24 19:46 BMI result Body Mass Index 26.2 Const General: comfortable and no acute distress Orientation/consciousness: patient oriented x3 HEENT Other: Unremarkable Head: Yes normal to inspection Neck Neck: Yes normal visual inspection Chest Chest palpation & inspection: normal inspection of the chest Resp Auscultation: clear to auscultation bilaterally Cardio Palpation: normal PMI Heart sounds: S1 normal heart sound present, S2 normal heart sound present, no gallops, Murmur heart sound present systolic III/ and at the right sternal border and no rubs GI Palpation (GI): Soft to palpation Back/Spine/Pelvis Other: unremarkable Skin General skin exam: no rashes or lesions noted Neuro General: patient oriented x3 Extrem General: Yes normal to inspection Psych Mental Status: mental status grossly normal Objective Labs and Meds 09/05/24 07:19 09/05/24 07:19 Lab results: Laboratory Results - last 24 hr 09/05/24 07:19 WBC 5.2 RBC 3.89 L Hgb 10.5 L Hct 33.8 L MCV 86.9 MCH 27.0 MCHC 31.1 RDW 16.0 Plt Count 332 MPV 9.1 L Absolute Nucleated RBC 0.000 Nucleated RBC % (auto) 0.0 Sodium 138 Potassium 3.8 Chloride 103 Carbon Dioxide 27 Anion Gap 12 BUN 21 H Creatinine 0.85 Estim Creat Clear Calc 50.2 Estimated GFR > 60 Random Glucose 94 Fasting Glucose 94 Calcium 9.0 Magnesium 2.0 Total Bilirubin 1.0 AST 19 ALT 12 Alkaline Phosphatase 119 H B-Natriuretic Peptide 339 H Total Protein 6.7 Albumin 3.6 Progress Note: A&P Assessment and plan (1) Acute exacerbation of chronic heart failure: Status: Acute (2) Hypertrophic cardiomyopathy: Status: Acute (3) Tricuspid regurgitation: Status: Acute (4) Aortic stenosis, severe: Status: Acute Plan In the recent echocardiogram, LVEF is 60-65%. Severely dilated atria. Severe aortic stenosis. Severe mitral annular calcification. Severe pulmonary hypertension with severely increased right heart pressures. [id number] ascending aortic dilatation at 4.5 cm. Overall, admitted for heart failure but seems to be improving. She states she is just weak but otherwise okay. Otherwise, per notes, it seems she is awaiting Interventional appointment to discussed any valvular interventions. May try to ambulate and see how she feels. Time Spent With Patient Time: Total time managing care of this patient today ____ minutes. Progress Note: Quality Stroke Does the patient have a stroke diagnosis?: No Procedures Date of Service Date of Service: 09/05/24
--- NOTE | 2024-09-05 10:59 | MHC.CM.PN ---
PT is recommending home with services; CM will follow.
--- NOTE | 2024-09-05 12:11 | MHC.CM.PN ---
Patient has been medically cleared for dc to home today, with services. A referral has been made to [facility], who has been made aware of today's dc. Last IMM addressed on 09/03/2024.
--- NOTE | 2024-09-05 12:16 | W.MHC.F2F ---
Service Date Service Date: 09/05/24 Encounter Date of encounter: 09/05/24 Reasons for Services Signs and symptoms assessed: sob on exertion Reason for correction: medication management, medication treatment and teach disease management Reason for physical therapy: home safety and mobility and therapeutic exercises Homebound: Leaving the home is medically contraindicated at this time without the asist of a device and/or another person due th the listed conditions above and below. Reason homebound: shortness of breath at rest Certification: Based on the above findings, I certify that this patient is confined to the home and needs intermittent correction care, physical therapy and/or speech therapy, or continues to need occupational therapy. The patient is under my care, and I have initiated the establishment of the plan of care. The patient will be followed by a physician who will periodically review the plan of care. Time Spent With Patient Time: Total time managing care of this patient today ____ minutes.
--- NOTE | 2024-09-05 12:50 | MHC.CM.PN ---
CM spoke with Son/HCP/Michael @ [phone]; he will be here at 4PM to transport Patient to home.RN & MD are aware.
--- NOTE | 2024-09-05 13:00 | MHC.CM.PN ---
CM met with Patient and RN at bedside. Patient feels that she needs one more day in the hospital to rest. Attending MD has medically cleared Patient for dc to home today with VNA, but , per Patient, this morning Director Of Social Work did not disagree with dc to home tomorrow. Patient has IMM in hand and has been reminded of her right to appeal the dc. Patient requested time to think about her decision and RN will walk with Patient in the room.CM will follow.
--- NOTE | 2024-09-05 13:58 | MHC.CM.PN ---
DC will be changed to tomorrow at 9AM, rather than today at 4PM. CM left a detailed message for Son/Michael at the listed #. MD & RN are aware as well.
[2024-09-05] MEDS: Rivaroxaban 20 MG TABLET PO (17:10)
[2024-09-06] MEDS: 0.9 % Sodium Chloride Flush 3 ML SYRINGE IVFLUSH ×2 (00:42→09:27)
[2024-09-06 04:00] VITALS: BP 114/54; PULSE 98; RESP 18; TEMP 36.7; O2SAT 100
[2024-09-06 07:08] VITALS: BP 116/86; PULSE 71; RESP 17; TEMP 36.5; O2SAT 96
[2024-09-06] MEDS: VerapamiL HCL 80 MG TABLET PO (09:27)
[2024-09-06] MEDS: Montelukast Sodium 10 MG TABLET PO (09:27)
[2024-09-06] MEDS: Amiodarone HCL 200 MG TABLET PO (09:27)
[2024-09-06] MEDS: Furosemide 40 MG TABLET PO (09:27)
--- NOTE | 2024-09-06 09:30 | PM.DS ---
DS: Providers Provider Date of Service: 09/06/24 Date of admission: 09/02/24 08:32 Date of discharge: 09/06/24 Primary care physician: Jerome Guido MD Consults: 09/02/24 08:58 Consult to Cardiology Routine Consulting Provider: [facility] [place] [facility] Reason for consultation: CHF exacerbation, severe Has provider been notified: No DS: Diagnosis Discharge Diagnosis (1) Aortic stenosis, severe: Status: Acute (2) Bilateral pleural effusion: Status: Acute (3) Acute exacerbation of chronic heart failure: Status: Acute DS: Summary Hospital Course Hospital Course: inti 78-year-old female with a past medical history significant for HFpEF, severe aortic stenosis, pulmonary hypertension, HCM s/p septal ablation, heart block s/p ppm 2013, CAD, AFib on Xarelto, mild asthma, chronic anemia, history of DVT/PE, history of GI bleed, who presented to the this morning with worsening shortness of breath and dyspnea at rest starting yesterday. Prior to this about a week before she was starting to have shortness of breath with exertion, lower extremity edema and orthopnea. At baseline she does not take any diuretics, she has been off of them for almost a year and doing well. She recently was treated for a sinus infection however symptoms have resolved aside from a runny nose. She denies headache, chest pain, cough, fever, chills, abdominal pain, diarrhea, nausea, vomiting, constipation. She is followed by Dr. Stuart outpatient and is scheduled for a TAVR on 09/13. Recent echo with EF of 60-65%, severe aortic stenosis, severe pulmonary hypertension and severe mitral valve calcification. hospital course: Patient was admitted for acute hypoxic respiratory failure secondary to acute on chronic diastolic CHF with severe aortic stenosis was treated with IV Lasix and diuresed well and transitioned to p.o. Lasix 40 mg b.i.d.. She was seen by Cardiology recommended close follow-up to arrange for TAVR. For paroxysmal atrial fibrillation was continued on amiodarone and Xarelto. For mild intermittent asthma was continued on albuterol and Singulair. For history of PE was continued on Xarelto. For hypertension verapamil was decreased to 80 mg b.i.d.. Patient was seen by physical therapy who recommended home with services. VNA to follow at home Discharge plan Decrease verapamil to 80 mg twice daily, start Lasix 40 mg twice daily, follow-up closely with Cardiology for planning TAVR Time Attestation Discharge Coordination Time (in mins): 36 Quality: Safe Use of Opioids Does Pt have an Active Cancer Diagnosis on the Problem List?: No Quality: Stroke Does the patient have a stroke diagnosis?: No Physical Exam Vital Signs: Vital Signs: Last Vital Signs Temp 97.7 F 09/06/24 07:08 Pulse 71 09/06/24 07:08 Resp 17 09/06/24 07:08 BP 116/86 09/06/24 07:08 Pulse Ox 96 09/06/24 07:08 O2 Del Method Room Air 09/06/24 07:08 O2 Flow Rate 2 09/04/24 19:46 BMI result Body Mass Index 26.2 Const: Other: Constitutional : Awake, interactive, not in distress Neck : Normal inspection, Supple Cardiovascular : RRR, no JVP, systolic murmur, trace lower extremity edema Respiratory : good bilateral air entry, no crackles, wheezes or rhonchi Gastrointestinal: soft, lax, Normal bowel sounds, Non tender Skin : Warm, Dry Neurological : Alert & oriented x3, No focal deficit DS: Data Imaging Chest x-ray: Radiologist's impression: ITS Impressions Chest X-Ray 09/02/24 06:32 IMPRESSION: Bilateral pleural effusions, left greater than right. Cardiomegaly versus pericardial effusion. Mild interstitial lung edema. Calcified mitral valve. Electronically signed by: Allan Crawford MD 09/02/2024 07:18 AM EDT Discharge Plan Discharge Anticipated Discharge Date/Time: 09/05/24 08:38 Patient Disposition: Home Health Service Discharge Diagnosis: chf, Referrals: Karla FERNÁNDEZ [Outside] - 1 Week Jerome Guido MD [Primary Care Provider] - 1 Week Discharge Medications: New furosemide 40 mg Tablet 40 mg PO BID@0900,1800 Qty: 180 0RF Protocol: Hold for SBP< HOLD for SBP < : 90 verapamil 80 mg Tablet 80 mg PO BID Qty: 0 0RF Protocol: Hold for SBP/HR < HOLD for SBP < : 90 HOLD for HR < : 60 Continued acetaminophen 325 mg Tablet 650 mg PO Q4H PRN (Reason: Pain) albuterol sulfate 90 mcg/actuation HFA aerosol inhaler 2 puff PO Q4H PRN (Reason: Shortness Of Breath) rivaroxaban 20 mg tablet 20 mg PO DAILY@1700 montelukast 10 mg tablet 10 mg PO DAILY amiodarone 200 mg tablet 200 mg PO DAILY Qty: 30 5RF Discontinued verapamil 80 mg tablet 160 mg PO BID Qty: 360 0RF Discharge Orders: Discharge Order (Routine); Ordered 09/06/24 Ordered By: Reza Willis Diet: Advance to usual diet Activity on Discharge: As tolerated Stand Alone Forms: Patient Portal Discharge page Print Language: Estonian Care Plan Goals: Manage CHF and aortic stenosis Decrease verapamil to 80 mg twice daily, start Lasix 40 mg twice daily, follow-up closely with Cardiology for planning TAVR Health Concerns: CHF and aortic stenosis Plan of Treatment: Lasix and VErapamil Assessment: See above Patient Instructions: Verapamil (By mouth), Furosemide (By mouth) Discharge Date/Time: 09/06/24 10:10
--- NOTE | 2024-09-06 09:35 | MHC.CM.PN ---
PT MEDICALLY CLEARED FOR DC HOME W/[facility], FAMILY FOR TRANSPORT
--- NOTE | 2024-09-06 14:41 | P.F2F_ITS ---
Service Date Service Date: 09/06/24 Encounter Date of encounter: 09/06/24 Reasons for Services Signs and symptoms assessed: physical deconditioning heart failure exacerbation Reason for residential: teach disease management Reason for physical therapy: home safety and mobility and therapeutic exercises Homebound: Leaving the home is medically contraindicated at this time without the asist of a device and/or another person due th the listed conditions above and below. Reason homebound: unsteady gait / fall risk Certification: Based on the above findings, I certify that this patient is confined to the home and needs intermittent residential care, physical therapy and/or speech therapy, or continues to need occupational therapy. The patient is under my care, and I have initiated the establishment of the plan of care. The patient will be followed by a physician who will periodically review the plan of care. Time Spent With Patient Time: Total time managing care of this patient today ____ minutes.
== END 2024-09-06 10:10 | disposition home health service (06) | DRG 292 ==
LOC: HO.ED 07:39 → HO.EDOVER 08:55 → HO.IMC 11:12
PROVIDERS: Internal Medicine; Physician Assistant; Admitting Provider Physician Assistant; Emergency Provider Emergency Medicine Emergency Medical Services; PCP Internal Medicine; Visit Provider Student in an Organized Health Care Education/Training Program
DX: I50.33 Acute on chronic diastolic (congestive) heart failure (principal); I44.2 Atrioventricular block, complete; I25.10 Atherosclerotic heart disease of native coronary artery without angina pectoris; D64.9 Anemia, unspecified; I08.3 Combined rheumatic disorders of mitral, aortic and tricuspid valves; I27.20 Pulmonary hypertension, unspecified; J45.30 Mild persistent asthma, uncomplicated; Z20.822 Contact with and (suspected) exposure to COVID-19; Z95.0 Presence of cardiac pacemaker; Z86.711 Personal history of pulmonary embolism; Z86.718 Personal history of other venous thrombosis and embolism; Z79.899 Other long term (current) drug therapy
CPT/HCPCS: 0241U; 36415; 71045; 80048; 80053; 83690; 83735; 83880; 84484; 85025; 85027; 93005; 97162; 99285; J1940

== ENCOUNTER → 2024-09-02 06:32 | Outpatient (BNV) | payer MEDICARE, OTHER, SELFPAY | PROVIDERS: Emergency Provider Emergency Medicine Emergency Medical Services; PCP Internal Medicine; Visit Provider Radiology Diagnostic Radiology | DX: R06.02 Shortness of breath (principal) | CPT/HCPCS: 71045 ==

== ENCOUNTER → 2024-09-02 08:32 | Outpatient (BNV) | payer MEDICARE, OTHER, SELFPAY | PROVIDERS: Admitting Provider Physician Assistant; Emergency Provider Emergency Medicine Emergency Medical Services; PCP Internal Medicine; Visit Provider Physician Assistant | DX: J96.01 Acute respiratory failure with hypoxia (principal); I50.9 Heart failure, unspecified; I35.0 Nonrheumatic aortic (valve) stenosis | CPT/HCPCS: 99223; 99232; 99233; 99239; G0180 ==

== ENCOUNTER → 2024-09-02 08:32 | Outpatient (BNV) | payer MEDICARE, OTHER, SELFPAY | PROVIDERS: Admitting Provider Physician Assistant; Emergency Provider Emergency Medicine Emergency Medical Services; PCP Internal Medicine; Visit Provider Internal Medicine Cardiovascular Disease | DX: I50.9 Heart failure, unspecified (principal); I42.2 Other hypertrophic cardiomyopathy; I07.1 Rheumatic tricuspid insufficiency; I35.0 Nonrheumatic aortic (valve) stenosis | CPT/HCPCS: 93010; 99223; 99233 ==

== ENCOUNTER 2024-09-10 10:04 | Outpatient (REF) | payer MEDICARE, OTHER, SELFPAY ==
[2024-09-10 11:23] LABS: Hematocrit 34.2 % (37.0-47.0); Hemoglobin 10.5 g/dl (12.0-16.0); Mean Corpuscular HGB Conc 30.7 g/dl (31.0-35.0); Mean Corpuscular Hemoglobin 26.9 pg (27.0-33.0); Mean Corpuscular Volume 87.7 fL (80.0-98.0); Mean Platelet Volume 9.7 fL (9.4-12.3); Platelet Count 343 X10*3/uL (160-400); Red Cell Distribution Width 15.8 % (11.0-16.0); White Blood Count 5.3 X10*3/uL (4.8-10.8)
[2024-09-10 11:30] LABS: INTERNATIONAL NORM RATIO 1.6 (0.9-1.1)
[2024-09-10 11:41] LABS: Anion Gap 15 (12-20); Blood Urea Nitrogen 28 mg/dL (9-16); Calcium 9.1 mg/dL (8.4-10.2); Carbon Dioxide 26 mmol/L (22-29); Chloride 109 mmol/L (96-108); Estimated Glomerular Filt Rate > 60; Glucose Random 112 mg/dL (60-115); Potassium 4.5 mmol/L (3.3-5.1); Sodium 145 mmol/L (135-145)
== END 2024-09-10 10:05 | disposition home or self-care (01) ==
LOC: HO.HMGCLDS 10:04
PROVIDERS: PCP Internal Medicine; Visit Provider Internal Medicine Cardiovascular Disease
DX: I35.0 Nonrheumatic aortic (valve) stenosis (principal)
CPT/HCPCS: 36415; 80048; 85027; 85610

== ENCOUNTER → 2024-09-13 23:59 | Outpatient (BNV) | payer MEDICARE, OTHER, SELFPAY | PROVIDERS: PCP Internal Medicine; Visit Provider Internal Medicine Cardiovascular Disease | DX: I35.9 Nonrheumatic aortic valve disorder, unspecified (principal); R06.02 Shortness of breath | CPT/HCPCS: 93460; 99152 ==

== ENCOUNTER → 2024-09-15 23:59 | Outpatient (BNV) | payer MEDICARE, OTHER, SELFPAY ==
--- NOTE | 2024-09-15 12:57 | A.OFFVIS_ITS ---
Intake Visit Reasons: Remote device check-[employer] Allergies latex Allergy (Mild, Verified 09/02/24 06:21) Redness of Skin seasonal Allergy (Mild, Uncoded 02/13/22 15:24) Itchy Eyes [facility] Medical History (Updated 09/14/24 @ 00:03 by Cristino Paz) History of complete heart block History of blood transfusion History of GI bleed Personal history of COVID-19 Cervical disc disorder Hx of pulmonary embolus History of DVT (deep vein thrombosis) Anemia Asthma Non-rheumatic aortic stenosis Edema, peripheral Congestive heart failure Hypertrophic cardiomyopathy Pulmonary hypertension Obesity Paroxysmal atrial fibrillation Cardiac pacemaker in situ (~2013) CAD (coronary artery disease) Aortic stenosis (HFpEF) heart failure with preserved ejection fraction Surgical History History of cardiac cath History of heart surgery History of elbow surgery History of cardioversion History of permanent cardiac pacemaker placement Family History Father No problems noted. Mother CVD (cardiovascular disease) Social History Household Members: Children Household Members Other:: son Housing: House Are you a primary residential care facility manager to a significant other at home: No Do you presently have visiting nurse or other home services: No Alcohol intake: current Alcohol intake frequency: holidays/special occasions only Alcohol type: wine Comment: Uses scooter Patient Tobacco Use Status: Former Tobacco user Tobacco use type: Cigarette Second Hand Smoke Exposure: No Advance Directives Date on File: 09/02/24 service: No Current occupational status: employed Office Procedures Cardiac Device Check Cardiac Device Check Details: Remote pacemaker report generated 09/15/2024. Pacemaker function is adequate. [id number] Cardiac Device Interrogation, pacemaker Procedure code (CPT) selection complete Assessment & Plan Assessment & Plan (1) Cardiac pacemaker in situ: Onset Date: ~2013 Comment: (Medtronic DCPP - placed 2013, generator change 02/2022) Code(s): Z95.0 - Presence of cardiac pacemaker Category: Medical Plan: See above Coding Level of Care Code Procedure Only Diagnoses Cardiac pacemaker in situ Z95.0 CPT Codes Cardiac Device Check - Cardiac Device 12: [id number] Cardiac Device Interrogation, pacemaker ([id number])
== END ==
PROVIDERS: PCP Internal Medicine; Visit Provider Internal Medicine Cardiovascular Disease
DX: Z45.018 Encounter for adjustment and management of other part of cardiac pacemaker (principal)
CPT/HCPCS: 93294

== ENCOUNTER 2024-09-21 14:47 | Outpatient (REF) | payer MEDICARE, OTHER, SELFPAY | END 2024-09-21 14:48 | disposition home or self-care (01) | LOC: HO.US 14:47 | PROVIDERS: PCP Internal Medicine; Visit Provider Internal Medicine Cardiovascular Disease | DX: E04.1 Nontoxic single thyroid nodule (principal) | CPT/HCPCS: 76536 ==

== ENCOUNTER → 2024-10-24 12:49 | Outpatient (REF) | payer MEDICARE, OTHER, SELFPAY ==
--- OUTSIDE RECORDS SUMMARY | 2024-10-24 12:52 | XMS_ITS ---
Author Organization Jerome Guido MD Address [address] [place] [id number] Care Team Providers Care French Comber Name Role Phone Jerome Guido Primary Care Provider ALLERGIES No Known Allergies REASON FOR VISIT 2 month Encounters Encounter Location Date Provider Diagnosis Jerome Guido MD [address] [place], [place] [id number] 10/13/2024 Jerome Guido PLAN OF TREATMENT No Information
--- OUTSIDE RECORDS SUMMARY | 2024-10-24 12:52 | XMS_ITS | Continuity of Care Document ---
Author Organization [facility] [address] [address]- Care Team Providers Care Manager Test Name Role Phone Lata ORTIZ, Jerome Primary Care Physician [phone] Encounter [facility] Date(s): 09/02/24 - 10/02/24 [facility] [address] [place] [address] Drive [address] [place], [place] [address] Encounter Type: Triage Allergies, Adverse Reactions, Alerts Substance Criticality Severity Reaction Reaction Severity Status Latex Active Immunizations Given and Recorded Vaccine Date Status Refusal Reason SARS-CoV-2 (COVID-19) mRNA BNT-162b2 vac 01/08/21 Given SARS-CoV-2 (COVID-19) mRNA BNT-162b2 vac 12/18/20 Given Medications amiodarone 200 mg oral tablet TAKE 1 TABLET BY MOUTH DAILY Start Date: 09/07/24 Status: Ordered Repeat number: 1 amLODIPine 10 mg oral tablet 10 mg, 1, tablet, By Mouth, Daily, # 30 tablet, Refills 0, Tot. Refills 0, Maintenance, 09/13/24 4:10:00 PM EST, Route to Pharmacy Electronically, [facility], Partial fill upon patient request if the prescription is for a schedule II opioid drug., 152.4, cm, 09/13/24 8:16:00 EST, Height, 63.8, kg, 09/13/24 8:16:00 EST, Dry Weight Start Date: 09/13/24 Status: Ordered Quantity: 30.0 Unit: tablet Repeat number: 1 furosemide 40 mg oral tablet 40 mg, 1, tablet, By Mouth, 2 times a day, # 60 tablet, Refills 0, Tot. Refills 0, Maintenance, 09/13/24 4:09:00 PM EST, Route to Pharmacy Electronically, [facility], Partial fill upon patient request if the prescription is for a schedule II opioid drug., 152.4, cm, 09/13/24 8:16:00 EST, Height, 63.8, kg, 09/13/24 8:16:00 EST, Dry Weight Start Date: 09/13/24 Status: Ordered Quantity: 60.0 Unit: tablet Repeat number: 1 montelukast 10 mg oral tablet 10 mg, 1, tablet, By Mouth, Daily in PM, # 30 tablet, Refills 0, Maintenance, 06/24/16 8:39:16 AM EDT Start Date: 06/24/16 Status: Ordered Quantity: 30.0 Unit: tablet Repeat number: 1 Ventolin HFA 108 mcg/inh inhalation aerosol with adapter 2 puffs, Inhalation, Every 6 hours, PRN for wheezing, # 8 Gm, 0 Refills, Maintenance, 04/13/13 6:44:33 AM EDT, Aerosol Start Date: 04/13/13 Status: Ordered Quantity: 8.0 Unit: g Repeat number: 1 Xarelto 20 mg oral tablet 1 tablet = 20 mg, By Mouth, Daily in PM, # 30 tablet, 0 Refills, Maintenance, 06/24/16 8:37:55 AM EDT, Tablet Start Date: 06/24/16 Status: Ordered Quantity: 30.0 Unit: tablet Repeat number: 1 Problem List Condition Confirmation Course Effective Dates Status Health [facility] Informant Asthma Confirmed Active Atrial fibrillation Confirmed Active Pacemaker Confirmed Active HOCM (hypertrophic obstructive cardiomyopathy) Confirmed Active Pulmonary hypertension Confirmed Active Social History Social History Type Response Smoking Status Former smoker entered on: 03/19/18 Sex Sex Representation Female (finding) Patient Care team information Care Team Personnel Name: Jerome Guido MD Position: Reference Physician Member Role: PCP Address: [address] [place] [address] [place] [address]- Telecom: [phone] Care Team Related Persons Name: HOMER VIDAL Insurance Providers Guarantor name: MILIND VIDAL Health Plan Information #: 1 Payer: MEDICARE A INPT 25 Member Number: NA Policy Number: NA Group Number: NA Health Plan Information #: 2 Payer: [facility] Member Number: NA Policy Number: NA Group Number: NA
--- OUTSIDE RECORDS SUMMARY | 2024-10-24 12:52 | XMS_ITS | Continuity of Care Document ---
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 Name Role Phone Lata ORTIZ, Jerome Primary Care Physician [phone] Encounter [facility] [place] Date(s): 09/15/24 - 10/15/24 [facility] [address] [place] [address] Drive [address] [place], [place] [address] Attending Physician: Gloria Smith Admitting Physician: Gloria Smith Referring Physician: Gloria Smith Encounter Type: Triage Allergies, Adverse Reactions, Alerts [...] 4:10:00 PM EST, Route to Pharmacy Electronically, [facility], Partial fill upon patient request if the prescription is for a schedule II opioid drug., 152.4, cm, 09/13/24 8:16:00 EST, Height, 63.8, kg, 09/13/24 8:16:00 EST, Dry Weight Start Date: 09/13/24 Status: Ordered Quantity: 30.0 Unit: tablet Repeat number: 1 aspirin 81 mg oral delayed release tablet 81 mg, 1, tablet, By Mouth, Daily, # 30 tablet, Refills 0, Tot. Refills 0, Maintenance, 10/05/24 9:50:00 AM EST, Route to Pharmacy Electronically, [facility], Partial fill upon patient request if the prescription is for a schedule II opioid drug., 173, cm, 10/05/24 8:55:00 EST, Height, 63.8, kg, 09/13/24 8:16:00 EST, Dry Weight Start Date: 10/05/24 Status: Ordered Quantity: 30.0 Unit: tablet Repeat number: 1 CBC, BMP in 1 week CBC, BMP in 1 week, See Instructions, # 1 Unknown, Refills 0, Tot. Refills 0, Maintenance, Please forward results to Dr. Henderson, 10/05/24 8:25:00 AM EST, Supply Start Date: 10/05/24 Status: Ordered Quantity: 1.0 Unit: Unknown Repeat number: 1 CBC, BMP in 1 week CBC, BMP in 1 week, See Instructions, # 1 Unknown, Refills 0, Tot. Refills 0, Maintenance, Please forward results to Dr. Henderson, thanks, 10/05/24 9:51:00 AM EST, Supply Start Date: 10/05/24 Status: Ordered Quantity: 1.0 Unit: Unknown Repeat number: 1 furosemide 40 mg oral tablet 40 mg, 1, tablet, By Mouth, Daily, # 30 tablet, Refills 0, Tot. Refills 0, Maintenance, 10/11/24 9:54:00 AM EST, Do Not Route, Partial fill upon patient request if the prescription is for a schedule II opioid drug. Start Date: 10/11/24 Status: Ordered Quantity: 30.0 Unit: tablet Repeat number: 1 montelukast 10 [...] Position: Reference Physician Member Role: PCP Address: [address] [place] [address] Jerome Guido [place], [place] [address] Telecom: [phone] Name: Philip Obrien RN Position: S RN Member Role: Primary Care Nurse Name: Harshal Harrison RN Position: S RN Member Role: Primary Care Nurse Name: Sarah Hand RN Position: S RN Member Role: Primary Care Nurse Care Team Related Persons Name: HOMER VIDAL Insurance Providers Guarantor name: MILIND VIDAL Health Plan Information #: 1 Payer: MEDICARE A INPT 25 Member Number: NA Policy Number: NA Group Number: NA Health Plan Information #: 2 Payer: [facility] INDEMN Member Number: NA Policy Number: NA Group Number: NA
--- OUTSIDE RECORDS SUMMARY | 2024-10-24 12:52 | XMS_ITS | Continuity of Care Document ---
Author Organization [facility] Address [address] [place] [address]- Care Team Providers Care Theater Usher Name Role Phone Lata ORTIZ, Jerome Primary Care Physician [phone] Encounter [facility] [place] Date(s): 09/06/24 - 10/15/24 [facility] [address] [place] [address] Drive [address] [place], [place] [address] Attending Physician: Edmond Haas MD Referring Physician: Luis Eduardo Henderson MD Encounter Type: Pre Office Visit Allergies, Adverse Reactions, Alerts Substance Criticality Severity [...] 4:10:00 PM EST, Route to Pharmacy Electronically, [facility], Partial fill upon patient [...] 9:50:00 AM EST, Route to Pharmacy Electronically, [facility], Partial fill upon patient [...] Position: Reference Physician Member Role: PCP Address: [address] [place] [address] Jerome Guido MD [place], [place] [address] Telecom: [phone] Name: Philip Obrien RN Position: S RN Member Role: Primary Care Nurse Name: Harshal Harrison RN Position: S RN Member Role: Primary Care Nurse Name: Sarah Hand RN Position: S RN Member Role: Primary Care Nurse Care Team Related Persons Name: HOMER VIDAL Insurance Providers Guarantor name: MILIND VIDAL Health Plan Information #: 1 Payer: MEDICARE PART B OUTPT Member Number: [id number] Policy Number: NA Group Number: NA Health Plan Information #: 2 Payer: MERGED WITH [facility] INDEMN Member Number: [id number] Policy Number: NA Group Number: [id number] Health Plan Information #: 3 Payer: MEDICARE A INPT 25 Member Number: NA Policy Number: NA Group Number: NA
--- OUTSIDE RECORDS SUMMARY | 2024-10-24 12:52 | XMS_ITS | Continuity of Care Document ---
Author Organization [facility] ter Address [address] [place] [id number]- Care Team Providers Care Crusher Tender Name Role Phone Jerome Guido MD Primary Care Physician [phone] [facility] [place] 10[place]04/[place] - 10/11/[address] [address]- Discharge Disposition: A-D/C Home Attending Physician: Josh Celeste MD Admitting Physician: Josh Celeste MD Referring Physician: Emmanuel Henderson [facility] En[facility] Type: Disch IP Allergies, Adverse Reactions, Alerts Substance Criticality Severity Reaction Reaction Severity Status Latex Active Immunizations Given and Recorded Vaccine Date Status Refusal Reason SARS-CoV-2 (COVID-19) mRNA BNT-162b2 vac 01/08/21 Given SARS-CoV-2 (COVID-19) mRNA BNT-162b2 vac 12/18/20 Given Medications amiodarone 200 mg oral tablet TAKE 1 TABLET BY MOUTH DAILY Start Date: 09/07/24 Status: Ordered Repeat number: 1 amLODIPine 10 mg oral tablet 10 mg, Tablet, By Mouth, 10/11/24 9:00:00 AM EST Start Date: 10/11/24 Stop Date: 10/11/24 Status: Completed Repeat number: 1 amLODIPine 10 mg oral tablet 10 mg, 1, tablet, By Mouth, Daily, # 30 tablet, Refills 0, Tot. Refills 0, Maintenance, 09/13/24 4:10:00 PM EST, Route to Pharmacy Electronically, [facility], Partial fill upon patient request [...] 9:50:00 AM EST, Route to Pharmacy Electronically, [facility], Partial fill upon patient request [...] cardiomyopathy) Confirmed Active Pulmonary hypertension Confirmed Active Results Radiology Reports * Exam Date Time Procedure Performing Provider Status 10/08/24 8:08 AM Chest Portable Brunilda Medina; Auth (Verified) Notes: (Chest Portable) Reason For Exam: Follow-Up Pleural Effusion RESULT: Chest Portable Chest Portable Reason: Follow-Up Pleural Effusion; Clinical Question(s): Follow-Up Abnormal Exam COMPARISON: 10/07/2024. FINDINGS: LINES AND TUBES: Again demonstrated is a dual lead cardiac pacemaker. LUNGS AND PLEURA: There is blunting of the left costophrenic angle consistent with a small pleural effusion with compressive atelectasis. Underlying airspace disease cannot be excluded. No pneumothorax. HEART, MEDIASTINUM AND HYACINTH: The cardiac/mediastinal/hilar silhouette remain enlarged. Normal mediastinal and hilar contour. BONES AND SOFT TISSUES: No acute abnormality. IMPRESSION: 1. Again demonstrated is blunting of the left costophrenic angle consistent with a small pleural effusion with compressive atelectasis. Underlying airspace disease cannot BE excluded. 2. Again demonstrated is an enlarged cardiac, mediastinal, hilar silhouette. WSN: [id number] Ordering Physician: Christi Alarcon Dictated By: Ting Reyes MD Dictated Date/Time: 10/08/24 12:45 p Reviewed By: Ting Reyes MD Signed By: Ting Reyes MD Signed Date/Time: 10/08/24 12:45 pm Transcribed By: MACARIO Transcribed Date/Time: 10/08/24 12:42 pm * Exam Date Time Procedure Performing Provider Status 10/07/24 10:48 AM Chest Portable Lori Beaulieu; Auth (Verified) Notes: (Chest Portable) Reason For Exam: Shortness of Breath RESULT: Chest Portable Chest Portable COMPARISON: 10/05/2024 INDICATION / CLINICAL QUESTION: Shortness of breath FINDINGS: LINES AND TUBES: Dual-lead left subclavian pacer/AICD wires are intact. LUNGS AND PLEURA: New lateral left basilar opacity obscures the CP angle. No pulmonary edema. No pneumothorax. HEART, MEDIASTINUM AND HYACINTH: Unchanged cardiomegaly. BONES AND SOFT TISSUES: No acute abnormality. IMPRESSION: Left lateral basilar opacity consistent with atelectasis, pneumonia and/or effusion. WSN: [id number] Ordering Physician: Christi Alarcon Dictated By: Ferny Roach MD Dictated Date/Time: 10/07/24 10:51 a Reviewed By: Ferny Roach MD Signed By: Ferny Roach MD Signed Date/Time: 10/07/24 10:51 am Transcribed By: MACARIO Transcribed Date/Time: 10/07/24 10:49 am * Exam Date Time Procedure Performing Provider Status 10/05/24 6:10 AM Chest Portable Ansley Almeida; Auth (Verified) Notes: (Chest Portable) Reason For Exam: S/P TAVR;Postop RESULT: Chest Portable Examination: Portable chest performed on 10/05/2024. History: Status post tavr. Findings: A frontal view of the chest is compared to a prior study dated 10/04/2024. Pacer and aortic valve are seen. There is stable cardiomegaly. Mitral annulus calcification is noted. Enlargement of the pulmonary arteries is unchanged. The lungs are clear. The osseous structures are grossly unremarkable. Impression: There is no acute cardiopulmonary disease. WSN: [id number] Ordering Physician: Evaristo [facility] Dictated By: Marlene Gates MD Dictated Date/Time: 10/05/24 9:45 am Reviewed By: Marlene Gates MD Signed By: Marlene Gates MD Signed Date/Time: 10/05/24 9:45 am Transcribed By: MACARIO Transcribed Date/Time: 10/05/24 9:43 am * Exam Date Time Procedure Performing Provider Status 10/04/24 7:14 PM Chest Portable Geremias James (Verified) Notes: (Chest Portable) Reason For Exam: S/P TAVR;Postop RESULT: Chest Portable Chest Portable Reason: Postop; S P TAVR; Clinical Question(s): Other:; Cardiac Tamponade; Special Instructions: onadmission to unit COMPARISON: 07/31/2013 FINDINGS: LINES AND TUBES: Dual-lead left subclavian pacer/AICD wires are intact. LUNGS AND PLEURA: Faint apparent airspace opacity in the left upper lung is nonspecific and may be due to overlying skinfold versus atelectasis . Prominence of bilateral central pulmonary vasculature, stable since 2012. Minimal prominence of bilateral interstitial markings.. No pleural effusion. No pneumothorax. HEART, MEDIASTINUM AND HYACINTH: Stable mildly enlarged cardiac liver. Dense mitral annular calcification. Post TAVR. Normal mediastinal and hilar contour. Thin linear lucencies noted along the right lateral aspect ofthe mediastinum, suggestive of trace pneumomediastinum in the setting of recent surgery. BONES AND SOFT TISSUES: No acute abnormality. IMPRESSION: Post TAVR. Faint left upper lobe opacity,? Due to overlying skinfold versus atelectasis. No pleural effusion or pneumothorax. Trace pneumomediastinum along the right, in the setting of recent surgery. WSN: [id number] Ordering Physician: Evaristo [facility] Dictated By: Shelly Prather MD Dictated Date/Time: 10/04/24 7:36 pm Reviewed By: Shelly Prather MD Signed By: Shelly Prather MD Signed Date/Time: 10/04/24 7:36 pm Transcribed By: MACARIO Transcribed Date/Time: 10/04/24 7:32 pm Vital Signs Most recent to oldest [Reference Range]: 1 2 3 Height 173 cm (10/11/24 8:18 AM) 173 cm (10/11/24 4:43 AM) 173 cm (10/11/24 12:41 AM) Weight 60.7 kg (10/10/24 4:59 AM) 61.7 kg (10/08/24 4:51 AM) 62.3 kg (10/07/24 6:33 AM) Oxygen Saturation [94-100 %] 98 % (10/11/24:18 AM) 91 % *L* (10/11/24 4:43 AM) 90 % *L* (10/11/24 12:41 AM) Pulse Rate [55-90 bpm] 71 bpm (10/11/24 8:18 AM) 70 bpm (10/11/24 4:43 AM) 71 bpm (10/11/24 12:41 AM) Body Mass Index [18.5-24.99 kg/m2] 21.38 kg/m2 (10/04/24 1:30 PM) Blood Pressure [90-138/55-84 mm Hg] 123/64mm Hg (10/11/24 9:40 AM) 123/64mm Hg (10/11/24 8:18 AM) 120/67mm Hg (10/11/24 4:43 AM) Respiratory Rate [16-30 br/min] 18 br/min (10/11/24 8:18 AM) 16 br/min (10/11/24 4:43 AM) 16 br/min (10/11/24 12:41 AM) Temperature [96.8-100.4 DegF] 97.6 DegF (10/11/24 8:18 AM) 97.6 DegF (10/11/24 4:43 AM) 97.5 DegF (10/11/24 12:41 AM) Liters per Minute 2 L/min (10/11/24 8:18 AM) 0 L/min (10/08/24 9:07 PM) 1 L/min (10/08/24 11:14 AM) Mode of Delivery (Oxygen) Nasal cannula (10/11/24 8:18 AM) Room air (10/11/24 4:43 AM) Room air (10/11/24 12:41 AM) Blood pressure sites Arm, right (10/11/24 8:18 AM) Arm, right (10/11/24 4:43 AM) Arm, right (10/11/24 12:41 AM) Temperature Route Oral (10/11/24 8:18 AM) Oral (10/11/24 4:43 AM) Oral (10/11/24 12:41 AM) Weight Obtained Via Bed scale (10/10/24 4:59 AM) Bed scale (10/08/24 4:51 AM) Bed scale (10/07/24 6:33 AM) Social History Social History Type Response Smoking Status Former smoker entered on: 03/19/18 Sex Sex Representation Female (finding) Note * Dax Michel: PERFORM, SIGN, VERIFY Event Display: Cardiac Rehab Note Authored Date: [id number] Patient: SOPHIE VIDAL Age: 78 years Sex: Female : 1945 Associated Diagnoses: None Author: Dax Michel Diagnosis Cardiac Rehab Diagnosis: Attended Cardiac Surgery Rounds, see CV Progress Note for updated POC.. * Michelle Mccoy RN: PERFORM Event Display: Discharge/Transfer Note Hospital Authored Date: [id number] Nursing Discharge Note Entered On: 10/11/2024 14:43 EST Performed On: 10/11/2024 14:43 EST by Michelle Mccoy RN Nursing Discharge Note 2 Discharge Time : 10/11/2024 14:30 EST Discharge Level of Care at Discharge : snf facility Discharge Nursing Homes/Rehab Facilities : [facility] Discharge VNA/Hospice/Home Care(v001) : [facility] Patient Left Unit Via : Ambulance Patient Accompanied Off Unit with : Ambulance/Chair Van Personnel Handover Given to Transport Personnel : Yes DC Instructions Provided & Signed by Pt : Yes Patient Understands D/C Instructions : Yes Patient Instructions Discharge Signed : Yes Did Pt have Specialty Bed or Wound Vac : No Michelle Mccoy RN - 10/11/2024 14:43 EST * Phill Valdez: PERFORM Event Display: Discharge/Transfer Note Hospital Authored Date: [id number] Patient: ??TYJOSSIE, SOPHIE ? Age:??78 Years?Sex:??Female?:??1945?? Patient Information Discharge Location: Primary Care Physician: Jerome Guido MD Admit Date/Time: 10/04/2024 11:51 Discharge Disposition Discharge Disposition: Halfway Facility/Rehab Discharge Diagnosis (aortic stenosis) (I35.0) S/P TAVR (transcatheter aortic valve replacement) (Z95.2) _ Discharge Medications Albuterol (Ventolin HFA 108 mcg/inh inhalation aerosol with adapter)?2?puff(s)?Inhalation?Every 6 hours?as needed?for wheezing amiODARONE (amiodarone 200 mg oral tablet)?TAKE 1 TABLET BY MOUTH DAILY Amlodipine (amLODIPine 10 mg oral tablet)?10?Milligram?1?tablet?By Mouth?Daily Aspirin (aspirin 81 mg oral delayed release tablet)?81?Milligram?1?tablet?By Mouth?Daily Furosemide (furosemide 40 mg oral tablet)?40?Milligram?1?tablet?By Mouth?Daily Miscellaneous Rx (CBC, BMP in 1 week)?See Instructions?Please forward results to Dr. Henderson Miscellaneous Rx (CBC, BMP in 1 week)?See Instructions?Please forward results to Dr. Henderson, thanks Montelukast (montelukast 10 mg oral tablet)?10?Milligram?1?tablet?By Mouth?Daily in PM rivaroxaban (Xarelto 20 mg oral tablet)?1?tab(s)?20?Milligram?By Mouth?Daily in PM ? Vaccinations and Immunoprophylaxis SARS-CoV-2 (COVID-19) mRNA BNT-162b2 vac: 0.3 mL (01/08/21 18:34:00) SARS-CoV-2 (COVID-19) mRNA BNT-162b2 vac: 0.3 mL (12/18/20 19:33:00) ?? Doses Changed Lasix 40mg PO BID-->Lasix 40mg PO daily Future Appointments Thursday 9:45 AM EST ?? With: Ananda FUNES, Solitario Lange Where: [facility] [address] [place] [address]- Status: Pending Objective Assessment and Plan 78-year-old female with PMHx of known , AF on Xarelto, pulmonary??HTN, asthma, hypertrophic cardiomyopathy, heart block s/p PPM who presented for an elective TAVR. Post-op course complicated by subjective dyspnea. ?? 10/04/24 S/p transfemoral TAVR (29mm Evolute bioprosthetic valve) ?? Plaster Lather: Dr. Henderson Cardiac Surgeon: Dr. Celeste? Primary Station Engineer Main Line: Dr. Stuart ?? Neuro Debility/deconditioning -??Re-evaluated by??PT, patient??only ambulated 6ft in??her room with a walker??and PT??assistance and??refused??to ambulate??further or??use the??stairs; therefore, their recommendation remains to discharge to rehab?? - Has been accepted at??rehab placement - Tylenol as needed for pain? Cardiac S/p TF-TAVR Hx??AF on Xarelto, pulmonary??HTN, hypertrophic cardiomyopathy, heart block s/p PPM - Groins w/o hematoma - Rhythm/EKG: Paced rhythm - Anticoagulation plan: aspirin 81mg daily and home Xarelto 20mg nightly?? - POD1 echo: LVEF 65-70%, ASA in aortic position, MG 7mmHg, mild-mod paravalvular leak, no significant pericardial effusion - Shortness of breath improved?? - Evaluated by??Cardiology at the request of??the patient; POCUS??without pericardial effusion, cleared??for discharge -??Continue amiodarone 200mg daily, Norvasc 10mg daily,? - Follow-up echocardiogram will be arranged for her by the TAVR team - She will need to follow-up with her Station Engineer Main Line and the Interventionalist - She will obtain follow-up??CBC and BMP in??1 week ?? Pulm Shortness of breath (resolved) - Breathing comfortably on??room air - Maintain SpO2>92% - CXR 10/08 with improved LLL atelectasis/effusion - Encourage IS, coughing/deep breathing, and out of bed/ambulation ?? GI - Cardiac diet?? - Bowel regimen as ordered ?? Renal - Baseline creatinine 0.9 - Lasix stopped 10/10 for increase in Cr to 1.5 - Cr 1.03 at time of discharge - Will hold Lasix day of discharge and restart on reduced frequency of 40mg PO daily on 10/12 - Follow Cr trend daily - Voiding without issues? Heme - H&H stable? ID - WBC count stable -??Afebrile ?? Discharge Planning:??Medically cleared for discharge to rehab facility for strengthening and mobilization Measurements?? Height: 173 cm (10/11/24) Weight: 60.7 kg (10/10/24) Body Mass Index: 21.38 kg/m2 (10/04/24) ? Vital Signs?? Temperature: 97.6 DegF (10/11/24 08:18:00) Temperature Route: Oral (10/11/24 08:18:00) Pulse Rate: 71 bpm (10/11/24 08:18:00) Respiratory Rate: 18 br/min (10/11/24 08:18:00) Systolic Blood Pressure: 123 mm Hg (10/11/24 09:40:00) Diastolic Blood Pressure: 64 mm Hg (10/11/24 09:40:00) Blood pressure sites: Arm, right (10/11/24 08:18:00) Mean Arterial Pressure: 84 mm Hg (10/11/24 08:18:00) Pulse Pressure: 59 mm Hg (10/11/24 08:18:00) Oxygen Saturation: 98 % (10/11/24 08:18:00) Liters per Minute: 2 L/min (10/11/24 08:18:00) Mode of Delivery (Oxygen): Nasal cannula (10/11/24 08:18:00) Early Warning Score: 2 (10/11/24 09:41:27) ? Intake/Output? 10/04 11:51 10/11 07:00 10/10 07:00 10/09 07:00 10/08 07:00 ?? 10/11 09:55 10/11 09:55 10/11 06:59 10/10 06:59 10/09 06:59 Intake ? 4217.3 ?0 ?900 ?510 ? 1080 Output ? 8615 ?0 ? 1565 ?650 ? 1650 Net Total ?-4397.7 ?0 ? -665 ? -140 ? -570 ? Urine Count ?6 ?0 ?0 ?3 ?1 ? . Physical Exam Neurological: Alert, nonfocal. ? Pulmonary/Lungs: Decreased, bases both. ? Cardiovascular: V Paced. ? Gastrointestinal: Abdomen soft, non-tender, non-distended, bowel sounds present. Extremities: Pulses palpable.??Trace edema. Surgical Wounds: no s/s infection no hematoma. Pending Results BUN ordered on 10/05/2024 CBC w/ Differential ordered on 10/07/2024 Creatinine ordered on 10/05/2024 Electrolytes ordered on 10/05/2024 Magnesium Level ordered on 10/05/2024 RBCs for Surgery ordered on 10/04/2024 Type and Screen ordered on 10/04/2024 Type and Screen ordered on 10/05/2024 Patient Education Titles WebMD Ignite Patient Education - TAVR Discharge Instructions?? WebMD Ignite Patient Education - Cardiac Rehabilitation?? Follow-Up Appointments Added Follow Up ?Time Frame ?Comments Ananda FUNES, Solitario Lange?10/19/2024 09:45?Please attend your follow-up appointment with the Plaster Lather's office as scheduled. ECHO?10/13/2024 13:00?Please attend your echocardiogram appointment??that has been scheduled for you.?? Ankit Stuart MD?2 to 3 weeks?Please call your primary Station Engineer Main Line to schedule a follow-up appointment.?? Jerome Guido MD?2 to 5 weeks?Please call your PCP to schedule a follow-up appointment.?? [facility]?Cardiac Rehab Patient Instructions ?-Wound care in groins: May take shower; do not apply lotions or perfumed soap to surgical wound; Pat dry do not rub wounds. ??-Avoid heavy lifting or vigorous exercise for 1 week ?-Call Cardiology Office?? for signs of infection which ??include fever, chills, redness, pus like drainage or wound separation or bleeding. ?-Call cardiology office at any time for questions or concerns.?-Weigh yourself daily at the same time of day, preferably ??in the morning and record.?-If you gain ??or loose more than 3 pounds in 1 day or 5 pounds in one week, call the cardiology office. ??-Follow up with your wrapping checker as scheduled or call the office for an appointment ??-Obtain CBC and BMP in 1 week after discharge Results Discharge Labs BLOOD BANK Blood Type B Positive ()?? 10/10/2024 19:07 Antibody Screen Negative ()?? 10/10/2024 19:07 RBC Unit ID [id number] ()?? 10/04/2024 12:11 RBC Available RE ()?? 10/04/2024 12:11 ?? BLOOD COUNT & DIFF WBC 4.6 k/mm3 ()?? 10/11/2024 04:15 RBC 3.22 m/mm3 (Low)?? 10/11/2024 04:15 Hgb 8.3 Gm/dL (Low)?? 10/11/2024 04:15 Hct 27.6 % (Low)?? 10/11/2024 04:15 MCV 85.7 femtoliters ()?? 10/11/2024 04:15 MCH 25.8 pg (Low)?? 10/11/2024 04:15 MCHC 30.1 Gm/dL (Low)?? 10/11/2024 04:15 Platelet Count 297 k/mm3 ()?? 10/11/2024 04:15 RDW-SD 47.4 femtoliters (High)?? 10/11/2024 04:15 MPV 9.1 femtoliters (Low)?? 10/11/2024 04:15 Nucleated RBC (Automated) 0.0 #/100 WBC'S ()?? 10/11/2024 04:15 Abs. NRBC 0.0 k/mm3 ()?? 10/11/2024 04:15 Abs. Neut 3.4 k/mm3 ()?? 10/11/2024 04:15 Abs. Lymph 0.6 k/mm3 (Low)?? 10/11/2024 04:15 Abs. Citrus 0.5 k/mm3 ()?? 10/11/2024 04:15 Abs. Eo 0.1 k/mm3 ()?? 10/11/2024 04:15 Abs. Baso 0.1 k/mm3 ()?? 10/11/2024 04:15 Neut % 72.8 % ()?? 10/11/2024 04:15 Lymph % 12.8 % (Low)?? 10/11/2024 04:15 Citrus % 10.6 % (High)?? 10/11/2024 04:15 Eos % 1.9 % ()?? 10/11/2024 04:15 Baso % 1.3 % ()?? 10/11/2024 04:15 Imm Gran 0.6 % ()?? 10/11/2024 04:15 Abs. Imm Gran 0.0 k/mm3 ()?? 10/11/2024 04:15 ?? CHEM GENERAL Sodium 140 mmol/L ()?? 10/11/2024 04:15 Potassium 4.7 mmol/L ()?? 10/11/2024 04:15 Chloride 105 mmol/L ()?? 10/11/2024 04:15 Bicarbonate Level 24 mmol/L ()?? 10/11/2024 04:15 Anion Gap 11 ()?? 10/11/2024 04:15 Glucose, POC 131 mg/dL (High)?? 10/04/2024 13:37 BUN 33 mg/dL (High)?? 10/11/2024 04:15 Creatinine-Blood 1.03 mg/dL (High)?? 10/11/2024 04:15 Estimated GFR Creatinine 56 ML/MIN/1.73 M2 ()?? 10/11/2024 04:15 Magnesium 2.5 mg/dL (High)?? 10/11/2024 04:15 ?? COAG POC ACT-LR 149.0 seconds ()?? 10/04/2024 17:13 ? 40??minutes spent on discharge * Jeff RN, Amanda: PERFORM, SIGN, VERIFY Event Display: Case Management Discharge Plan Authored Date: Patient: SOPHIE VIDAL Age: 78 years Sex: Female : 1945 Associated Diagnoses: None Author: Amanda Aguilar RN Discharge Plan Case Management Discharge Plan : Case Management Discharge Plan Data 10/05/2024 14:48 EST Discharge Level of Care at Discharge snf facility (Modified) Discharge Nursing Homes/Rehab Facilities [facility] [place] Discharge Transportation Arranged [facility] [address] [facility] [phone] Discharge Arranged Transport Date/Time 10/11/2024 14:00 Mode of Transportation Arranged Chair Van Name of Agency #1 [facility] [place] (Modified) Service Categories #1 Physical Therapy, Halfway (Modified) Service Comments #1 discharge. (Modified) Name of Person Notified of Transfer son * Amanda Aguilar RN: PERFORM, SIGN, VERIFY Event Display: Case Management Discharge Plan Authored Date: [id number] Patient: SOPHIE VIDAL Age: 78 years Sex: Female : 1945 Associated Diagnoses: None Author: Amanda Aguilar RN Discharge Plan Case Management Discharge Plan : Case Management Discharge Plan Data 10/05/2024 14:48 EST Discharge Level of Care at Discharge snf facility (Modified) Discharge Nursing Homes/Rehab Facilities [facility] [place] Discharge [facility] ([facility] Discharge Transportation Arranged [facility] [address] [facility] [phone] Discharge Arranged Transport Date/Time 10/11/2024 14:00 Mode of Transportation Arranged Chair Van Name of Agency #1 [facility] [place] (Modified) Service Categories #1 Physical Therapy, Halfway (Modified) Service Comments #1 discharge. (Modified) Name of Person Notified of Transfer son * Juaquin DANIELSON, Pee: PERFORM, MODIFY, MODIFY, MODIFY Event Display: Patient Education/Instruction Authored Date: [id number] Inpatient Adult Discharge Instructions. [address] [id number] Name: SOPHIE VIDAL : 1945?? Visit: 10/04/2024 11:51?? Current Date: 10/11/2024 10:11 ?? Account: [id number]?? Inpatient Adult Discharge Instructions We would like to thank you for allowing us to assist you with your healthcare needs. The following includes patient education materials and information regarding your injury/illness. Our entire staffstrives to provide an excellent experience for our patients and their families. PLEASE ENSURE YOU FOLLOW-UP PER THE INSTRUCTIONS BELOW! ?? YOUR OPINION IS IMPORTANT TO US! Please complete the survey you may receive by mail or email. Your feedback will be used to make improvements to the healthcare experiences of our patients and their families. Surveys are administered by [employer]. ?? If further treatment with your primary care physician or another doctor is recommended, it is important for you to keep the appointment. Call your primary care physician or return to the Emergency Department immediately if your condition worsens, fails to improve, or new symptoms develop. If you need to find a doctor, you can call [facility] for a referral at [phone] or toll free at [phone]) or log in to [email or web address].. ?? [facility], in keeping with [facility] guidance, no longer requires face masks for staff, patientsor visitors in most situations. Similiar to time spent indoors at other locations, there is the chance that you were exposed to repiratory viruses during your time with us (such as flu or COVID-19). If you develop symptoms concerning for a viral respiratory infection, please seek testing (and treatment if indicated) from your medical provider or home test kit. ?? You can view and manage your care through the patient portal or by using a health care angeli of your choosing. [employer] is a website that allows you to securely view your medical information including your hospital discharge summary, office visit summaries, medications and follow-up visits. You can also request appointments, renew medications, and request access to your medical information using a health care angeli of your choosing, or just ask a question. You can enroll at [email or web address] or register during your next office visit. You have been discharged from [facility], Patient Care Unit: M6??. If you have any questions regarding these instructions, including results of studies pending, afteryou leave, please call us and we will be happy to assist you 01/06. [facility] Your Care Team Attending Physician Josh Celeste MD?? Consulting Providers Josh Celeste MD?? Discharging Providers Phill Valdez Your Diagnosis (aortic stenosis) S/P TAVR (transcatheter aortic valve replacement) Tests Performed Below is a partial list of the tests performed during your hospitalization. You may have had other tests and procedures not included in this list. Please discuss all test results with your provider. BUN CBC w/ Differential Creatinine Electrolytes GLUCOSE POC Hgb + Hct Magnesium Level POC Hemochron ACT-LR Type and Screen CXR Portable XR Chest Portable BUN?? CBC w/ Differential?? Creatinine?? Electrolytes?? Glucose POC?? Hgb + Hct?? Magnesium Level?? POC ACT-LR (POC Hemochron ACT-LR)?? RBCs for Surgery?? Type and Screen?? Chest Portable (CXR Portable)?? Primary Care Provider Jerome Guido MD? Advance Directive Health Care Proxy on File Yes - Health Care Proxy Discharge Vitals Temperature: 97.6 DegF Height: 173 cm Pulse Rate: 71 bpm Weight: 60.7 kg Respiratory Rate: 18 br/min Body Mass Index: 21.38 kg/m2 Systolic Blood Pressure: 123 mm Hg Body surface area: 1.75 Diastolic Blood Pressure: 64 mm Hg ?? Oxygen Saturation: 98 % ?? Studies Pending All studies ordered during this hospital stay have been completed unless listed below. Please discuss all pending results with your provider listed above in these instructions. ?? BUN?? CBC w/ Differential?? Creatinine?? Electrolytes?? Magnesium Level?? RBCs for Surgery?? Type and Screen?? What to do next Instructions From Your Doctor ?-Wound care in groins: May take shower; do not apply lotions or perfumed soap to surgical wound; Pat dry do not rub wounds. ??-Avoid heavy lifting or vigorous exercise for 1 week ?-Call Cardiology Office?? for signs of infection which ??include fever, chills, redness, pus like drainage or wound separation or bleeding. ?-Call cardiology office at any time for questions or concerns.?-Weigh yourself daily at the same time of day, preferably ??in the morning and record.?-If you gain ??or loose more than 3 pounds in 1 day or 5 pounds in one week, call the cardiology office. ??-Follow up with your wrapping checker as scheduled or call the office for an appointment ??-Obtain CBC and BMP in 1 week after discharge ?? Orders? 10/11/24 9:57:00 EST?? Scheduled Follow-Up Appointments Thursday 9:45 AM EST ?? With: Solitario Malave NP Where: [address] [address]- Status: Pending You Need to Schedule the Following Appointments Follow Up with??Solitario Malave NP When:??10/19/2024 09:45 AM EST Why: Please attend your follow-up appointment with the Plaster Lather's office as scheduled. Where: [address] [place] [id number]- Follow Up with??ECHO When:??10/13/2024 01:00 PM EST Why: Please attend your echocardiogram appointment??that has been scheduled for you.?? Where: [address] [place] [address], 1st [place] [address]- [phone] Follow Up with??aSde ORTIZ, Ankit Palacios When:??Within 2 to 3 weeks Why: Please call your primary Station Engineer Main Line to schedule a follow-up appointment.?? Where: [address] [place] [address] [place] [address]- Follow Up with??Jerome Guido MD When:??Within 2 to 5 weeks Why: Please call your PCP to schedule a follow-up appointment.?? Where: [address] [place] [address]- Business (1) Follow Up with??[facility] Why: Cardiac Rehab Where: [address] [place] [phone]- [phone] Discharge Medications SOPHIE VIDAL :1945 Visit Date:10/04/2024 Medications: Please continue your medications until treatment is completed or stopped by your provider. Medications not listed below should be discontinued. Discuss any questions related to medications with your provider. What How Much When Instructions Next Dose New Aspirin (aspirin 81 mg oral delayed release tablet) 1 tab(s) Oral Daily Pickup at [facility] 3 Tomorrow AM 10/12 New Miscellaneous Rx (CBC, BMP in 1 week) See instructions Please forward results to Dr. Henderson, thanks ?? Printed Prescription New Miscellaneous Rx (CBC, BMP in 1 week) See instructions Please forward results to Dr. Henderson ?? Printed Prescription Changed Furosemide (furosemide 40 mg oral tablet) 1 tab(s) Oral Daily Tomorrow AM 10/12 Unchanged Albuterol (Ventolin HFA 108 mcg/ inh inhalation aerosol with adapter) 2 puff(s) Inhalation Every 6 hours as needed for for wheezing as needed Unchanged amiODARONE (amiodarone 200 mg oral tablet) Daily TAKE 1 TABLET BY MOUTH DAILY ?? Tomorrow AM 10/12 Unchanged Amlodipine (amLODIPine 10 mg oral tablet) 1 tab(s) Oral Daily Tomorrow AM 10/12 Unchanged Montelukast (montelukast 10 mg oral tablet) 1 tab(s) Oral Daily in PM 8pm tomorr10/12 Unchanged rivaroxaban (Xarelto 20 mg oral tablet) 1 tab(s) Oral Daily in PM 8pm tomorrow 10/12 Pharmacy Information [facility] 3: [address] [place] [address] [phone] Prescription Given During Visit Aspirin (aspirin 81 mg oral delayed release tablet) - 1 tablet = 81 mg, By Mouth, Daily, # 30 tablet, 0 Refills, [facility] 3, [address] [place] [address] [phone]?? Furosemide (furosemide 40 mg oral tablet) - 1 tablet = 40 mg, By Mouth, Daily, # 30 tablet, 0 Refills?? Miscellaneous Rx (CBC, BMP in 1 week) - , # 1 Unknown, 0 Refills, Please forward results to Dr. Henderson, thanks?? Miscellaneous Rx (CBC, BMP in 1 week) - , # 1 Unknown, 0 Refills, Please forward results to Dr. Henderson?? Laboratory Results Below is a partial list of the most recent Laboratory test results done prior to this discharge. You may have had other tests and procedures not included in this list. Please discuss all test resultswith your provider. RBC Available - RE (10/04/2024) RBC Unit ID - [id number] (10/04/2024) BUN (10/11/2024) ???BUN - 33 mg/dL CBC w/ Differential (10/11/2024) ???WBC - 4.6 k/mm3???RBC - 3.22 m/mm3???Hgb - 8.3 Gm/dL???Hct - 27.6 %???MCV - 85.7 femtoliters???MCH - 25.8 pg???MCHC - 30.1 Gm/dL???Platelet Count - 297 k/mm3???RDW-SD - 47.4 femtoliters???MPV - 9.1 femtoliters???Nucleated RBC (Automated) - 0.0 #/100 WBC'S???Abs. NRBC - 0.0 k/mm3???Abs. Neut - 3.4 k/mm3???Abs. Lymph - 0.6 k/mm3???Abs. Citrus - 0.5 k/mm3???Abs. Eo - 0.1 k/mm3???Abs. Baso - 0.1 k/mm3???Neut % - 72.8 %???Lymph % - 12.8 %???Citrus % - 10.6 %???Eos % - 1.9 %???Baso % - 1.3 %???Imm Gran - 0.6 %???Abs. Imm Gran - 0.0 k/mm3 Creatinine (10/11/2024) ???Creatinine-Blood - 1.03 mg/dL???Estimated GFR Creatinine - 56 ML/MIN/1.73 M2 Electrolytes (10/11/2024) ???Sodium - 140 mmol/L???Potassium - 4.7 mmol/L???Chloride - 105 mmol/L???Bicarbonate Level - 24 mmol/L???Anion Gap - 11 GLUCOSE POC (10/04/2024) ???Glucose, POC - 131 mg/dL Hgb + Hct (10/04/2024) ???Hgb - 8.8 Gm/dL???Hct - 29.7 % Magnesium Level (10/11/2024) ???Magnesium - 2.5 mg/dL POC Hemochron ACT-LR (10/04/2024) ???POC ACT-LR - 149.0 seconds Type and Screen (10/10/2024) ???Blood Type - B Positive???Antibody Screen - Negative You will be contacted within 72 hours with your results. Allergies (NKA means No Known Allergies) Latex Problems Active Problems??(5) Asthma?? Atrial fibrillation?? HOCM (hypertrophic obstructive cardiomyopathy)?? Pacemaker?? Pulmonary hypertension?? Education Materials Below is the list of Educational Leaflet Providered with your Discharge Instructions. Web[employer] Patient Education - TAVR Discharge Instructions?? Web[employer] Patient Education - Cardiac Rehabilitation?? Valuables and Belongings I fully understand and agree that [facility] accepts no responsibility for all my personal property including clothing, toilet articles, radios, jewelry, dentures, hearing aids, rings, money, or any other property that is in my possession or is brought to me after admission. I understand certain valuables may be placed in a hospital safe for a short period of time. I understand that the hospital is not liable for loss or damage due to accident, fire, or other natural occurrence while said property is in the safe. I accept full responsibility for any personal property that I keep with me, and will not hold the hospital responsible in case of loss or disappearance. I acknowledge that i have been encouraged to send valuables and belongings home. ?? Date for Pt to Sign Valuables/Belongings: 10/04/24 13:41:00 ?? Other Discharge Information ? Case Management Discharge Plan?? Discharge Plan?? Discharge Agency Information?? Discharge Level of Care at Discharge: Homehealth/VNA Name of Agency #1: [facility] Discharge Rx Program: Discharge Prescription Program Service Categories #1: Physical Therapy Discharge VNA/Hospice/Home Care: [facility] [phone] Service Comments #1: [facility] will provide PT services at home. ??Your RN today will call them to notify them to start services. ??The agency will contact you to set up a visit. ??Please call [phone] if you do not hear from them within 24 hours of discharge. ?? Pulmonary Rehab Status?? Pulmonary Rehab Discharge Status?? Respiratory Rate: 18 br/min ? Cardiac Rehab Assessment?? Cardiac Rehab Inpatient Assessment?? Comments-Education: s/p TAVR Comments-Smoking Cessation: na Comments-Exercise Activity: progressive activity as tolerated Comments-Nutrition: per RD Comments-Stress Management: healthy coping techniques Comments-Lipids: diet, exercise, medication per MD Comments-Other plan of care: Encourage Phase 2 Common Emergency Awareness Tips IS IT A STROKE? Act FAST and Check for these signs: FACE Does the face look uneven? ARM Does one arm drift down? SPEECH Does their speech sound strange? TIME Call at any sign of stroke ?? Heart Attack Signs Chest discomfort: Most heart attacks involve discomfort in the center of the chest and lasts more than a few minutes, or goes away and comes back. It can feel like uncomfortable pressure, squeezing, fullness or pain. Discomfort in upper body: Symptoms can include pain or discomfort in one or both arms, back, neck, jaw or stomach. Shortness of breath: With or without discomfort. Other signs: Breaking out in a cold sweat, nausea, or lightheaded. Remember, MINUTES DO MATTER. If you experience any of these heart attack warning signs, call to get immediate medical attention! ?? Smoking can increase your chances of developing chronic health problems and can cause harmful effects to other family members in your house. If you smoke, you are strongly encouraged to quit. Please call [facility] at [phone] or [phone] ([phone]) or log in to [email or web address] for referrals to smoking cessation programs. ?? 399 Suicide & Crisis Lifeline is available 01/06 if you or someone you know needs to find a reason to keep living. By calling 353 you'll be connected to a skilled, trained counselor at a crisis center in your area. INPATIENT DISCHARGE INSTRUCTIONS SIGNATURE PAGE SOPHIE VIDAL Location:[facility] Registration Date and Time:10/04/2024 11:51 EST Primary Care Physician: Jerome Guido MD, [phone] Attending Physician: Roula ORTIZ, [facility], I SOPHIE VIDAL, have received the above patient education materials/instructions and have verbalized understanding. If ambulance or transport services are being used I further acknowledge being given a choice of service. ?? If you need to contact me, please call me at this number: . Patient/Sculpture Conservator Name: Patient/Sculpture Conservator Signature: Relationship to Patient: Witness Name/Signature: Date: * Phill Valdez Scar: PERFORM Event Display: Patient Education Leaflets Authored Date: [id number] TAVR Discharge Instructions ?? 298 TAVR Discharge Instructions Call 911 if: ??? If you develop a new onset of confusion, weakness or tingling on one side, numbness, slurred speech or difficulty speaking, loss of vision ??? If you develop numbness, tingling, loss of sensation, and/or coolness to your arms or legs. ??? If you develop chest pain or discomfort that is not relieved with rest. ??? If uncontrolled bleeding occurs, hold pressure to the site and call 911. ?? Call your wrapping checker office if you experience any of the following: ??? Temperature of 101 or greater, chills, sweating ??? Any bleeding or swelling at the incision site or if a hard lump forms. ??? Any signs of infection at incision site including drainage, redness or tenderness, odor, or the edges of your procedure site are pulling apart or opening. ??? If you experience any new rash, cough, dizziness, or leg cramps. ??? Changes in breathing, chest pain, abnormal pain, dizziness, change in pulse, pulse rate or palpitations, nausea, vomiting. ??? You gain 2 pounds in one day or 5 pounds in 1 week. ?? Follow up: A follow up appointment should be made with your doctor. Follow up care is important; it is strongly encouraged for you to keep your appointment. You may have more than one appointment including one with the cocoa bean roaster helper who performed your procedure and your wrapping checker. ??? Follow up appointments are generally scheduled at 2 weeks for an incision check, either with your primary wrapping checker or a member of our heart valve team. ??? Additional follow ups occur with the cocoa bean roaster helper who performed your procedure within 4 to 6 weeks and then again at 1 year. ??? o An EKG, echocardiogram, and labs will also be obtained before these two follow up visits If you do not have an appointment scheduled already in your discharge packet, please call and make an appointment when you get home. If you have any questions, please call the office of the cocoa bean roaster helper who performed your procedure. ?? Valve identification card: You will receive a permanent card in the mail in 8-10 weeks. This identification card should be carried with you at all times. ?? If you go home with a 28 day monitor after your procedure: ??? The monitor will be applied to you prior to your discharge. ??? Each monitor is good for 14 days, a new monitor will be sent to your home address on file at day 12 ??? If you have any specific questions or concerns in regard to your monitor, please call the company: [employer]: ?? Bathing: ??? You can take a shower using a mild soap after you are discharged from the hospital. ??? Avoid soaking in water such as tub baths, swimming pools or hot tubs until you are cleared by your doctor to do so. ?? Incision Care: ??? Look at your procedure site every day until it is completely healed. o Check your procedure site daily for redness, odor, or drainage/bleeding. o You may have a small bump where the catheter was put in, if the bump gets larger, please notify your wrapping checker. o You may see bruising at the procedure sites but this is normal. ??? It is important to keep incision sites clean and dry. o Avoid usi ng any perfumed soaps, lotions, creams, oils or ointments as these may irritate the site and could put you at risk for infection. ?? Activity: ??? Review the written materials given to you by the Cardiac Rehabilitation staff for your specificexercise program. ??? No heavy lifting over 10 pounds (gallon of milk) for 1 week. ??? Gradually increase your activity. Remember to alternate periods of activity with periods of rest. ??? It is important to continue to do the coughing and deep breathing exercises to help prevent breathing complications. ??? Take your temperature every day for the next 3-5 days. ??? Weigh yourself at the same time every morning. ?? Cardiac Rehabilitation: Cardiac rehabilitation is an outpatient medically supervised exercise program. Participating in a cardiac rehabilitation program is highly encouraged, as this is essential to your recovery process. ??? Cardiac rehabilitation typically starts 2 to 3 weeks after discharge. ??? If attending [facility]???s program, you should leave the hospital with an orientation appointment already arranged. A cardiac rehab facility other than [facility] may require a referral from your wrapping checker. ?? Driving: ??? You should not drive for 2-3 days after you are discharged from the hospital. ?? Dental Cleaning/Procedures post TAVR ??? You will need an antibiotic prior to future dental cleanings and procedures to prevent against bacteria from attaching to your new heart valve (This is calledinfective endocarditis). ??? If you have developed any signs and/or symptoms of endocarditis pleasecall your wrapping checker. ??? Symptoms of endocarditis include : ?? o Flu-like symptoms, such as fever, chills, night sweats tiredness, muscle and joint aches, and headache. o Trouble breathing, cough,nausea and vomiting. o Swelling of the feet, legs, and belly. ?? * Desean MASON, Phill Abbott: PERFORM Event Display: Patient Education Leaflets Authored Date: [id number] TAVR Discharge Instructions ?? 298 TAVR Discharge Instructions Call 911 if: ??? If you develop a new onset of confusion, weakness or tingling on one side, numbness, slurred speech or difficulty speaking, loss of vision ??? If you develop numbness, tingling, loss of sensation, and/or coolness to your arms or legs. ??? If you develop chest pain or discomfort that is not relieved with rest. ??? If uncontrolled bleeding occurs, hold pressure to the site and call 911. ?? Call your wrapping checker office if you experience any of the following: ??? Temperature of 101 or greater, chills, sweating ??? Any bleeding or swelling at the incision site or if a hard lump forms. ??? Any signs of infection at incision site including drainage, redness or tenderness, odor, or the edges of your procedure site are pulling apart or opening. ??? If you experience any new rash, cough, dizziness, or leg cramps. ??? Changes in breathing, chest pain, abnormal pain, dizziness, change in pulse, pulse rate or palpitations, nausea, vomiting. ??? You gain 2 pounds in one day or 5 pounds in 1 week. ?? Follow up: A follow up appointment should be made with your doctor. Follow up care is important; it is strongly encouraged for you to keep your appointment. You may have more than one appointment including one with the cocoa bean roaster helper who performed your procedure and your wrapping checker. ??? Follow up appointments are generally scheduled at 2 weeks for an incision check, either with your primary wrapping checker or a member of our heart valve team. ??? Additional follow ups occur with the cocoa bean roaster helper who performed your procedure within 4 to 6 weeks and then again at 1 year. ??? o An EKG, echocardiogram, and labs will also be obtained before these two follow up visits If you do not have an appointment scheduled already in your discharge packet, please call and make an appointment when you get home. If you have any questions, please call the office of the cocoa bean roaster helper who performed your procedure. ?? Valve identification card: You will receive a permanent card in the mail in 8-10 weeks. This identification card should be carried with you at all times. ?? If you go home with a 28 day monitor after your procedure: ??? The monitor will be applied to you prior to your discharge. ??? Each monitor is good for 14 days, a new monitor will be sent to your home address on file at day 12 ??? If you have any specific questions or concerns in regard to your monitor, please call the company: o [employer]: ?? Bathing: ??? You can take a shower using a mild soap after you are discharged from the hospital. ??? Avoid soaking in water such as tub baths, swimming pools or hot tubs until you are cleared by your doctor to do so. ?? Incision Care: ??? Look at your procedure site every day until it is completely healed. o Check your procedure site daily for redness, odor, or drainage/bleeding. o You may have a small bump where the catheter was put in, if the bump gets larger, please notify your wrapping checker. o You may see bruising at the procedure sites but this is normal. ??? It is important to keep incision sites clean and dry. o Avoid usi ng any perfumed soaps, lotions, creams, oils or ointments as these may irritate the site and could put you at risk for infection. ?? Activity: ??? Review the written materials given to you by the Cardiac Rehabilitation staff for your specificexercise program. ??? No heavy lifting over 10 pounds (gallon of milk) for 1 week. ??? Gradually increase your activity. Remember to alternate periods of activity with periods of rest. ??? It is important to continue to do the coughing and deep breathing exercises to help prevent breathing complications. ??? Take your temperature every day for the next 3-5 days. ??? Weigh yourself at the same time every morning. ?? Cardiac Rehabilitation: Cardiac rehabilitation is an outpatient medically supervised exercise program. Participating in a cardiac rehabilitation program is highly encouraged, as this is essential to your recovery process. ??? Cardiac rehabilitation typically starts 2 to 3 weeks after discharge. ??? If attending [facility]???s program, you should leave the hospital with an orientation appointment already arranged. A cardiac rehab facility other than [facility] may require a referral from your wrapping checker. ?? Driving: ??? You should not drive for 2-3 days after you are discharged from the hospital. ?? Dental Cleaning/Procedures post TAVR ??? You will need an antibiotic prior to future dental cleanings and procedures to prevent against bacteria from attaching to your new heart valve (This is calledinfective endocarditis). ??? If you have developed any signs and/or symptoms of endocarditis pleasecall your wrapping checker. ??? Symptoms of endocarditis include : ?? o Flu-like symptoms, such as fever, chills, night sweats tiredness, muscle and joint aches, and headache. o Trouble breathing, cough,nausea and vomiting. o Swelling of the feet, legs, and belly. ?? * Dax Michel: VERIFY, PERFORM, SIGN Event Display: Cardiac Rehab Note Authored Date: Patient: SOPHIE VIDAL Age: 78 years Sex: Female : 1945 Associated Diagnoses: None Author: Dax Michel Diagnosis Cardiac Rehab Diagnosis: Attended Cardiac Surgery Rounds, see CV Progress Note for updated POC.. * Event Display: Provider Clarification Note Please click on pdf link to open report * Gigi Cohen RN: PERFORM, SIGN, VERIFY Event Display: Cardiac Rehab Note Authored Date: Patient: SOPHIE VIDAL Age: 78 years Sex: Female : 1945 Associated Diagnoses: None Author: Gigi Cohen RN Pt s/p TAVR on 10/04/24 A&O x 3, VS reviewed Patient reports not feeling well this AM, dizziness upon sitting up, which is new for patient. Declined ambulation at this time - RN aware Encouraged AROM and increased activity as tolerated with assistive device Patient will f/u with [facility] for Phase 2 Cardiac Rehab when appropriate, may benefit from home PT (walker/wheelchair bound at home and lives alone) Will attempt to see later for ambulation Please page [phone] with any questions * Gigi Cohen RN: PERFORM, SIGN, VERIFY Event Display: Patient Education Handout Authored Date: * Gigi Cohen RN: PERFORM Event Display: Patient Education Leaflets Authored Date: Cardiac Rehabilitation ?? [id number] Cardiac Rehabilitation Cardiac rehabilitation (cardiac rehab) is a professionally supervised program designed by your healthcare team. It'll help you recover from your heart problem and??reduce your risk of future heart problems. You may be helped by cardiac rehab if you have certain heart conditions or certain heart procedures. These include: ??? Stable angina ??? Heart attack ??? Stable heart failure ??? Coronary artery bypass surgery ??? Heart valve surgery ??? Angioplasty with or without a stent ??? Heart-lung transplant Along with a tailored exercise program, cardiac rehab provides education and counseling to improve health. The cardiac rehab program includes: ??? An assessment of your health ??? Managing your risk factors such as high cholesterol, high blood pressure, and diabetes ??? Education on diet and medicines ??? Exercise training ??? Losing weight??? Quitting smoking ??? Emotional aspects such as stress, anxiety, or depression It's important to talk with your healthcare provider about the health benefits of enrolling in a cardiac rehab program. Your rehab program Your cardiac rehab program may start while you???re still in the hospital. After you leave the hospital, you may go to a facility for rehab classes. You???ll regain some strength and learn how to exercise safely. Once you do that, your healthcare provider may prescribe an exercise program for you to do at a gym or at home. ?? As an inpatient You may start light exercise within 2 days of entering the hospital once you have the healthcare provider's approval. Your activity may be limited based on the procedure you had, such as bypass surgery, valve replacement, coronary angioplasty, or coronary stenting. ?? As an outpatient As early as 1 to 2 weeks after leaving the hospital, you can join a supervised rehab program. Ask for a referral from your healthcare provider. Before leaving the hospital, your provider can provide contact and enrollment information. See if your healthcare team can get an appointment set up beforeyou're discharged home. ??? Exercises will be prescribed to help you build strength and movement. The first month will mostlikely include easier exercises. Over time, you???ll exercise harder to improve your endurance. ???Your heart, oxygen saturation,??and blood pressure may be watched as you work. ??? Cardiac rehab programs are tailored to meet your needs. Some people may take part in the program for 6 weeks, while others will do it for 6 months or longer. ??? Some people may not have access to a facility-based cardiac rehab. Home-based cardiac rehab is considered in some cases for some people. Virtual programs may also be available. Ask your healthcare provider if these are an option for you. ?? Maintain the benefits to your health Don???t stop once you???ve finished your program! Make what you learned in rehab a regular part of your life. Here are some tips: ??? Work out at home or at a gym. Try watching a new workout video each week. Take an exercise class. Find something that keeps you interested. ??? Ask family and friends to help you stay motivated. The healthy lifestyle changes can benefit them as well by partnering up and working out together. ??? Make other lifestyle changes to improve your heart and overall health. Quit smoking. Make changes to lower your stress. Lose excess weight. And lower your blood pressure and cholesterol. ??? It's important to keep an open conversation with your healthcare provider about your progress and goals. ?? Last Reviewed Date: 2024 ?? [id number] The [employer]. All rights reserved. This information is not intended as a substitute for professional medical care. Always follow your healthcare professional's instructions. ?? * Event Display: Hemodynamic Procedure Report Authored Date: * Event Display: Hemodynamic Procedure Report Authored Date: History and physical note * Event Display: History and Physical Hospital Authored Date: [id number] * Sylvester Schneider MD: PERFORM Event Display: History and Physical Hospital Authored Date: [id number] SURGICAL HISTORY AND PHYSICAL DATE: 10/04/2024 CHIEF COMPLAINT: Severe aortic stenosis. HISTORY OF PRESENT ILLNESS: The patient is a 78-year-old female with a recent admission to [facility] with acute congestive heart failure. She does have a history of hypertrophic cardiomyopathy and has undergone an alcohol septal ablation about 10-15 years ago at [facility]. She did get a pacemaker at that time. More recently, she has developed increasing dyspneaon exertion and orthopnea. She does get lightheadedness. She denies chest pain. She does report lower extremity edema as well. Her most recent echocardiogram showed an ejection fraction of 65%, mild aortic regurgitation in addition to the severe aortic stenosis, and moderate mitral regurgitation with severe MAC. There is no evidence of a subvalvular gradient. She is somewhat debilitated, uses a walker for short distances and a wheelchair for anything more significant. No longer drives. She doeslive by herself. PAST MEDICAL HISTORY: Chronic atrial fibrillation, hypertrophic cardiomyopathy, heart block, asthma, chronic AFib, pulmonary hypertension. SOCIAL HISTORY: Former smoker. Again, lives by herself, poor ambulation. FAMILY HISTORY: Noncontributory. MEDICATIONS: She is on Advair, amiodarone, aspirin, furosemide, montelukast, ProAir, Tikosyn, Ventolin, verapamil, Xarelto. ALLERGIES: LATEX. REVIEW OF SYSTEMS: As per HPI; otherwise, remainder are negative. PHYSICAL EXAMINATION: GENERAL APPEARANCE: Frail appearing, elderly female, lying in bed, in no distress. VITAL SIGNS: Temperature is 98.2, heart rate 70 beats per minute, respirations 20, blood pressure 164/90 mmHg, oxygen saturation is 92% on room air. Height is 152 cm and weight is 64 kg. HEENT: Normocephalic, atraumatic. Extraocular movements are intact. Pupils are equal, round, reactive to light. NECK: No JVD, no bruits, no cervical or supraclavicular lymphadenopathy. CARDIAC: Regular rate and rhythm. She does have a systolic ejection murmur. LUNGS: Clear to auscultation. ABDOMEN: Soft, nontender, no organomegaly, positive bowel sounds. EXTREMITIES: No clubbing, cyanosis. There is trace edema, with chronic venous stasis changes. NEUROLOGIC: Grossly nonfocal. IMAGING: She did have a cardiac catheterization today that shows moderate disease in the LAD and posterolateral artery. Echo is as described. ASSESSMENT AND PLAN: This is a 78-year-old female with symptomatic severe aortic stenosis and at least moderate coronary disease. I do think she would benefit from having her aortic valve replaced. Her STS risk calculation for aortic valve replacement is 5.6%; for AVR CABG it is 5.4%. This may be somewhat of an underestimation given her poor mobility and frailty. Therefore, I think I would favor a TAVR approach. She still does need to have her CT angiogram and she will be discussed at one of our multidisciplinary TAVR conferences. Dictated by: Sylvester Schneider MD Signing Clinician: Sylvester Schneider MD Dictated: 09/13/2024 11:15:45 Transcribed: 05:34:48 AM Transcribed by: [facility] DocID: [id number] PRELIMINARY REPORT UNLESS MANUALLY/ELECTRONICALLY SIGNED cc: Ankit Stuart M.D. [facility] Embossing Unit Operator [address] [place] [address], [address] [place], [address] EKG study * Event Display: ECG 12-Lead Authored Date: Please click on pdf link to open report * Event Display: ECG 12-Lead Authored Date: Ventricular Rate: 70 BPM Atrial Rate: 70 BPM QRS Duration: 220 ms Q-T Interval: 546 ms QTC Calculation(Bazett): 589 ms R York: -81 degrees T York: 99 degrees AV dual-paced rhythm Abnormal ECG When compared with ECG of 05-Oct-2024 19:37, No significant change Confirmed by Hemanth Freeman ([id number]) on 10/07/2024 10:03:20 AM [place]: Hemanth Freeman * Event Display: ECG 12-Lead Authored Date: Please click on pdf link to open report * Event Display: ECG 12-Lead Authored Date: Ventricular Rate: 71 BPM Atrial Rate: 71 BPM P-R Interval: 176 ms QRS Duration: 220 ms Q-T Interval: 548 ms QTC Calculation(Bazett): 595 ms P York: -78 degrees R York: -81 degrees T York: 97 degrees AV dual-paced rhythm Abnormal ECG When compared with ECG of 05-Oct-2024 08:12, No significant change was found Confirmed by Hemanth Freeman ([id number]) on 10/06/2024 6:57:36 AM [place]: Hemanth Freeman * Event Display: ECG 12-Lead Authored Date: Please click on pdf link to open report * Event Display: ECG 12-Lead Authored Date: Ventricular Rate: 71 BPM Atrial Rate: 71 BPM P-R Interval: 216 ms QRS Duration: 220 ms Q-T Interval: 562 ms QTC Calculation(Bazett): 610 ms R York: -81 degrees T York: 98 degrees Atrial-sensed ventricular-paced rhythm with prolonged AV conduction Abnormal ECG When compared with ECG of 04-Oct-2024 17:36, MANUAL COMPARISON REQUIRED DATA IS UNCONFIRMED Confirmed by EDGARDO GARZA MD ([id number]) on 10/05/2024 3:02:51 PM [place]: EDGARDO GARZA MD US Heart * Event Display: Echocardiogram - Complete Authored Date: Transthoracic Echocardiography Report (TTE) Patient Demographics Patient Name SOPHIE VIDAL Date of Study 10/05/2024 Corporate Gender Female Facility Race .[id number] Ethnicity Date of 1945 Height: 68.11 inches Age 78 year(s) Weight: 141.1 pounds Accession Number [id number] BSA: 1.76 m2 Room Number [id number] BMI: 21.38 kg/m2 Referring Physician Marguerite Barrera MD Physician Logistics Support Sam Barbosa Indications Aortic valve disease, non-rheumatic. Clinical History s/p #29 Evolut FX + ASA pacemaker PHTN Study Data Type of Study TTE procedure:Echo Complete-Doppler, Colorflow, M-Mode. Study Date10/05/2024 Start Time: 11:05 AM [place] [facility] [place] Status: Echo lab Patient Status: Routine Technical Quality: Technically difficult due to restricted mobility. Blood Pressure:127/75 mmHg EKG: Paced HR: 87 bpm Allergies - Latex. 2D Measurements LV Diastolic Dimension: 5.6 cm LV Systolic Dimension: 4.4 cm LV Septum Diastolic: 1.1 cm LV PW Diastolic: 1.2 cm AO Root Dimension: 3 cm LA ESV (BP):135 ml LVOT Stroke Volume: 82.83 ml LA ESV Index: 77 ml/m2 Stroke Volume Index47.06 ml/m2 LVOT: 2.2 cm Cardiac Index:4.1 l/min/m2 Ascending Aorta:3 cm Doppler Measurements AV Peak Velocity: 181 cm/s AV Peak Gradient: 13.1 mmHg MV P1/2t: 75 msec AV Mean Gradient: 8 mmHg MV Mean Gradient: 6 mmHg AV VTI:34 cm MV Area (continuity): 1.6 cm2 LVOT Peak Velocity: 114 cm/s LVOT VTI21.8 cm MV Area (PHT): 2.93 cm2 AV Area (Continuity):2.44 cm2 PV Peak Velocity: 110 cm/s TR Velocity:372 cm/s PV Peak Gradient: 4.84 mmHg TR Gradient:55.35 mmHg Estimated RAP:8 mmHg Estimated RVSP: 63.4 mmHg Cardiac Anatomy Left Ventricle/Interventricular Septum The left ventricular size is normal. There is mild to moderate concentric left ventricular hypertrophy. The LV systolic function is vigorous . The left ventricular ejection fraction is 65-70 %. There are no regional wall motion abnormalities. Left ventricular filling pressures are indeterminate. Left Atrium/Interatrial Septum The left atrium is severely dilated. Aortic Valve There is a transcatheter aortic valve implantation (ASA Evolut FX+ #29) in the aortic position. There is mild to moderate paravalvular leak. (See image 55 and 77). There is no central aortic insufficiency. The mean gradient is 7 mmHg. Mitral Valve The mitral valve appears thickened . There is moderate mitral annular calcification. Mitral leaflet excursion is normal . There is mild mitral regurgitation. There is progressive (mild) mitral stenosis with mean gradient of 6 mmHg. Aorta The ascending aorta and aortic root are normal in size. The aortic arch and descending aorta are normal in size. Right Ventricle A pacer/ICD wire is seen in the right ventricle. The right ventricle is normal in size and function. Right Atrium The right atrium is severely dilated. Pulmonic Valve The pulmonic valve is poorly visualized. The pulmonic valve is functionally normal. There is mild pulmonic regurgitation. Tricuspid Valve There is malcoaptation of the the tricuspid valve leaflets. There is severe tricuspid valve regurgitation. Pumonary Artery The pulmonary artery appears normal. There is moderate pulmonary hypertension. The pulmonary artery systolic pressure estimation is 60-65 mmHg. Venous Structures The inferior vena cava appears moderately dilated. Inferior vena cava inspiratory collapse is normal . Pericardium/Extracardiac There is no significant pericardial effusion. Summary 1. . There is mild to moderate concentric left ventricular hypertrophy. 2. The LV systolic function is vigorous . The left ventricular ejection fraction is 65-70 %. There are no regional wall motion abnormalities. 3. The left atrium is severely dilated. 4. There is a transcatheter aortic valve implantation (ASA Evolut FX+ #29) in the aortic position. There is mild to moderate paravalvular leak. (See image 55 and 77). There is no central aortic insufficiency. The mean gradient is 7 mmHg. 5. There is progressive (mild) mitral stenosis with mean gradient of 6 mmHg. 6. The right ventricle is normal in size and function. 7. The right atrium is severely dilated. 8. There is severe tricuspid valve regurgitation. 9. There is moderate pulmonary hypertension. The pulmonary artery systolic pressure estimation is 60-65 mmHg. Comparison Comparison is made to the study of October 04, 2024. There is still mild to moderate perivalvular leak. Signature * Event Display: Echocardiogram - Complete Authored Date: [id number] * Event Display: Echocardiogram - Complete Authored Date: [id number] Transthoracic Echocardiography Report (TTE) Patient Demographics Patient Name SOPHIE VIDAL Date of Study 10/04/2024 Corporate Gender Female Facility Race .[id number] Ethnicity Date of 1945 Height: 68.11 inches Age 78 year(s) Weight: 141.1 pounds Accession Number [id number] BSA: 1.76 m2 Room Number [id number] BMI: 21.38 kg/m2 Referring Delio Gaston Interpreting Marquise Meier Physician Physician Logistics Support Joh[facility] Indications Aortic stenosis. Additional Indications:29 mm Medtronic TAVR Clinical History CHF Pacemaker. Cardiomyopathy. Study Data Type of Study TTE procedure:Echo 2D Limited or Follow-up, Doppler Follow-up or Limited. Study Date10/04/2024 Start Time: 04:36 PM Study Location: 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 Blood Pressure:146/84 mmHg EKG: Sinus tachycardia HR: 138 bpm Allergies - Latex. Doppler Measurements AV Peak Velocity: 186 cm/s AV Peak Gradient: 13.84 mmHg AV Mean Gradient: 6 mmHg AV VTI:32.3 cm LVOT Peak Velocity: 106 cm/s LVOT VTI23.5 cm AV P1/2t: 393 msec Cardiac Anatomy Aortic Valve There is a transcatheter aortic valve implantation (ASA Evolut FX+ #29) in the aortic position. There is a moderate paravalvular leak. There is no central aortic insufficiency. Pericardium/Extracardiac There is no significant pericardial effusion. Summary There is a transcatheter aortic valve implantation (ASA Evolut FX+ #29) in the aortic position. There is a moderate paravalvular leak. There is no central aortic insufficiency. Comparison Comparison is made to the external study of August 12, 2024. There is a transcatheter aortic valve implantation (ASA Evolut FX+ #29) in the aortic position. Signature * Event Display: Echocardiogram - Complete Authored Date: Cardiology * Event Display: Cardiac Rhythm Strips Authored Date: * Event Display: Cardiac Rhythm Strips Authored Date: * Event Display: Cardiac Rhythm Strips Authored Date: * Event Display: Cardiac Rhythm Strips Authored Date: * Event Display: Cardiac Rhythm Strips Authored Date: Hospital Progress note * Philip Obrien RN: PERFORM, SIGN, VERIFY Event Display: Progress Note Hospital Authored Date: Patient: SOPHIE VIDAL Age: 78 years Sex: Female : 1945 Associated Diagnoses: None Author: Philip Obrien RN Findings Problem Related to Alteration in Cardiac Function (new) : Alteration in Cardiac Function/new 10/11/2024 9:00 EST Alteration in Cardiac Status Related to Cardiac Surgery, Other: TAVR Cardiac Interventions Implemented Assess/monitor cardiac status, Assess/monitor neuro status, Assess/monitor respiratory status, Call/Report variances in ECG to provider . Nursing Data Vital Signs : VITAL SIGNS SECTION 10/11/2024 8:18 EST Early Warning Score 2.00 10/11/2024 8:18 EST Temperature 97.6 DegF Temperature Route Oral Pulse Rate 71 bpm Respiratory Rate 18 br/min Systolic Blood Pressure 123 mm Hg Diastolic Blood Pressure 64 mm Hg Blood pressure sites Arm, right Mean Arterial Pressure 84 mm Hg Pulse Pressure 59 mm Hg Oxygen Saturation 98 % Liters per Minute 2 L/min Mode of Delivery (Oxygen) Nasal cannula . Evaluation Ms. Vidal is alert and oriented to person, place and time; calm and cooperative with all care. Trace BLE edema noted; V-paced on tele. Lungs are clear on room air; but patient will self place 2L NC on her for comfort. Plan is for rehab discharge at 1400. . Discharge Information Date of Discharge 10/11/2024. Functional Assessment Feeding ability: self. Standing ability: with assist. Mobility assistance: ambulate, assist of 1. Psycho-Social Assessment Affect/behavior: cooperative. Mental status: alert. Orientation: person, place, time. Case Management Discharge Plan : Case Management Discharge Plan Data 10/05/2024 14:48 EST Discharge Level of Care at Discharge snf facility (Modified) Discharge Nursing Homes/Rehab Facilities [facility] [place] Discharge VNA/Hospice/Home Care [facility] (Modified) Discharge Transportation Arranged [facility] [address] [facility] [address] [phone] Discharge Arranged Transport Date/Time 10/11/2024 14:00 Mode of Transportation Arranged Chair Van Name of Agency #1 [facility] [place] (Modified) Service Categories #1 Physical Therapy, [place] (Modified) Service Comments #1 discharge. (Modified) Name of Person Notified of Transfer son * Ansley Cuellar RN: PERFORM, SIGN, VERIFY Event Display: Progress Note Hospital Authored Date: Patient: SOPHIE VIDAL Age: 78 years Sex: Female : 1945 Associated Diagnoses: None Author: Ansley Cuellar RN Findings Problem Related to Alteration in Cardiac Function (new) : Alteration in Cardiac Function/new 10/10/2024 17:00 EST Alteration in Cardiac Status Related to Cardiac Surgery, Other: TAVR Goals & Outcomes, Cardiac Status Pt will resume/maintain adequate cardiac output, Pt will resume/maintain adequate respiratory function, Pt will resume/maintain intact neuro function Cardiac Interventions Implemented Assess/monitor cardiac status, Assess/monitor neuro status, Assess/monitor respiratory status, Assess for tolerance of IV infusions; verify rate & dose, Call/Report variances in ECG to provider, Document & Monitor O2 Sats; Administer O2 as ordered, Ensure adequate caloric intake, If no bowel movement in 3 days activate bowel regime, Monitor & document daily weight, Monitor anticoagulation values, Monitor ECG w/administration of antiarrhythmics (CO 13.420), Obtain 12 Lead ECG and CXR as ordered, Prep pt for treatments & procedures, Teach/encourage deep breath & cough exercises, Teach/encourage use of incentive spirometer, Team conversation regarding appropriate level of care, Turn & reposition Q2 hours per activity restrictions, Useadjunctive therapies per Standards of Practice Goals/Interventions, Cardiac Yes Cardiac, Problem Start 10/04/2024 21:00 Reviewed Plan with, Cardiac Status Patient Patient Progression, Cardiac Status Patient progressing according to plan . Nursing Data Cardiac Data. : Cardiac Data. 10/10/2024 11:19 EST Cardiac Rhythm Paced library monitor Yes Cardiovascular WNL except . Gastrointestinal Data. : Gastrointestinal Data. 10/10/2024 11:19 EST Bowel Sounds LUQ Hypoactive Bowel Sounds RUQ Hypoactive Bowel Sounds LLQ Hypoactive Bowel Sounds RLQ Hypoactive GI WNL except Normal Bowel Pattern Every other day . Genitourinary Data. : Genitourinary Data. 10/10/2024 11:19 EST WNL . HEENT Data. : HEENT Assessment 10/10/2024 11:19 EST HEENT, Adult WNL . Integumentary Data. : Integumentary Data. 10/10/2024 11:19 EST Activity Walks occasionally Mobility Slightly limited . Musculoskeletal Data. : Musculoskeletal Data. 10/10/2024 11:19 EST Musculoskeletal Symptoms None Musculoskeletal WNL except . Neurological Data. : Neurological Data. 10/10/2024 11:19 EST Neuro WNL . Respiratory/Pulmonary Data. 10/10/2024 11:19 EST Left Upper Lobe Breath Sounds Diminished Right Upper Lobe Breath Sounds Diminished Right Middle Lobe Breath Sounds Diminished Left Lower Lobe Breath Sounds Diminished Right Lower Lobe Breath Sounds Diminished Respiratory WNL except . Vital Signs : VITAL SIGNS SECTION 10/10/2024 16:27 EST Temperature 98.2 DegF Temperature Route Oral Pulse Rate 76 bpm Respiratory Rate 18 br/min Systolic Blood Pressure 138 mm Hg Diastolic Blood Pressure 69 mm Hg Blood pressure sites Arm, left Mean Arterial Pressure 92 mm Hg Pulse Pressure 69 mm Hg Oxygen Saturation 93 % L Mode of Delivery (Oxygen) Room air 10/10/2024 11:28 EST Temperature 98.2 DegF Temperature Route Oral Pulse Rate 70 bpm Respiratory Rate 16 br/min Systolic Blood Pressure 124 mm Hg Diastolic Blood Pressure 78 mm Hg Blood pressure sites Arm, right Mean Arterial Pressure 93 mm Hg Pulse Pressure 46 mm Hg Oxygen Saturation 95 % Mode of Delivery (Oxygen) Room air 10/10/2024 8:18 EST Temperature 98.1 DegF Temperature Route Oral Pulse Rate 70 bpm Respiratory Rate 18 br/min Systolic Blood Pressure 128 mm Hg Diastolic Blood Pressure 79 mm Hg Blood pressure sites Arm, right Mean Arterial Pressure 95 mm Hg Pulse Pressure 49 mm Hg Oxygen Saturation 98 % Mode of Delivery (Oxygen) Room air . Evaluation Sophie Vidal is alert and orientedx4, vss, paced on tele. Pt had some nausea this AM and refused to take pills right away, gave PRN Zofran and pt agreeable to take her pills at noon. Lasix held Uma Shipley. Pt is safe, call vance in reach, bed locked and in lowest position. See CIS for additional info. Will continue to monitor for safety.. Discharge Information Case Management Discharge Plan : Case Management Discharge Plan Data 10/05/2024 14:48 EST Discharge Level of Care at Discharge Homehealth/VNA Discharge VNA/Hospice/Home Care [facility] [phone] Name of Agency #1 [facility] Service Categories #1 Physical Therapy Service [facility]. Your RN today will call them to notify them to start services. The agency will contact you to set up a visit. Please call [phone] if you do not hear from them within 24 hours of discharge. (Modified) Rehabilitation Discharge : Rehab Discharge Index 10/09/2024 9:22 EST Walker: distance < 10 10/06/2024 11:41 EST Comments on treatment indicated Pt admitted for elevative Transfemoral TAVR, aortic valve replacement. Pt presented with dizziness and RODRIGUEZ on eval with limited activity. Pt prefers home but anticipate rehab. PT will cont to follow Walker: distance < 10 Distance pt will ambulate 40' Full chart review completed Yes Hospital course Hospital course Other findings Pt currently on 2 lpm supp o2-does not wear supp o2 at baseline. Pt also with c/o dizziness, RODRIGUEZ with minimal exertion. MObility limited on eval secondary to both barriers-PT will needto monitor progress with mobility for home vs rehab. Pt prefers home Plan of care PT Gait training, Transfer training, Therapeutic exercise, Functional Activities, Balance training * Quinten FUNES, Adriana Guevara: PERFORM Event Display: Progress Note Hospital Authored Date: Patient: ??TYNAN, SOPHIE ? Age:??78 Years?Sex:??Female?:??1945?? Subjective POD 6??s/p TF-TAVR ?? - Vpaced creat bumped from 0.9 to 1.5. Lasix on hold, reassess tomorrow. decreased Xarelto to??15 mg?? - Has a bed a rehab when medically ready Review of Systems ? Constitutional: reports pain controlled Cardiovascular:reports no chest pain, chest pressure or chest discomfort. sternal incision pain controlled with medication Respiratory: Denies shortness of breath, cough or sputum production. Gastrointestinal: endorses nausea, without??vomiting or diarrhea. No abdominal pain?? Allergies Allergies ?(Active and Proposed Allergies Only) Latex? (Severity: Unknown severity, Onset: Unknown) ? Objective Vital Signs?? Temperature: 98.2 DegF (10/10/24::00) Temperature Route: Oral (10/10/24::) Pulse Rate: 70 bpm (10/10/24::00) Respiratory Rate: 16 br/min (10/10/24:28:00) Systolic Blood Pressure: 122 mm Hg (10/10/24 12:13:00) Diastolic Blood Pressure: 61 mm Hg (10/10/24 12:13:00) Blood pressure sites: Arm, right (10/10/24::00) Mean Arterial Pressure: 93 mm Hg (10/10/24:28:00) Pulse Pressure: 46 mm Hg (10/10/24:28:00) Oxygen Saturation: 95 % (10/10/24:28:00) Mode of Delivery (Oxygen): Room air (10/10/24:28:00) Early Warning Score: 2 (10/10/24 12:18:22) ? Intake/Output? 10/04 11:51 10/10 07:00 10/09 07:00 11/30 07:00 10/07 07:00 ?? 10/10 14:23 10/10 14:23 10/10 06:59 10/09 06:59 10/08 06:59 Intake ? 3317.3 ?0 ?510 ? 1080 ?380 Output ? 7050 ?0 ?650 ? 1650 ? 1000 Net Total ?-3732.7 ?0 ? -140 ? -570 ? -620 ? Urine Count ?5 ?0 ?3 ?1 ?1 ? Physical Exam Neurological: alert, nonfocal. ? Pulmonary/Lungs: decreased, bases both. ? Cardiovascular: V Paced. ? Gastrointestinal: Abdomen soft, non-tender, non-distended, bowel sounds present?? Extremities: Pulses palpable.? trace edema Surgical Wounds: no s/s infection no hematoma _ Inpatient Medications Medications (10) Active SCHEDULED: (5) Amiodarone 200 mg Tablet (amiodarone 200 mg oral tablet) ??200 mg, By Mouth, Daily Amlodipine 10 mg Tablet (amLODIPine 10 mg oral tablet) ??10 mg, By Mouth, Daily Aspirin 81 mg Chew Tablet (Aspirin Chew Tablet) ??81 mg, By Mouth, Daily Montelukast 10 mg Tablet (montelukast 10 mg oral tablet) ??10 mg, By Mouth, Daily Rivaroxaban 15 mg Tablet (Xarelto) ??15 mg, By Mouth, Daily at supper CONTINUOUS: (1) NaCL 0.9% (150 mL) Cont IV 300 mL (NaCL 0.9% 300 mL) ??300 mL, IV Infusion, 50 mL/hr PRN: (4) Acetaminophen 325 mg Tablet (Acetaminophen Tablet) ??650 mg, By Mouth, Every 8 hours Albuterol 0.083% Inhalation Solution (Albuterol 0.083% inhalation rosio) ??2.5 mg 3 mL, BAND Nebulizer, Every 4 hours NaCl 0.9% Flush 3ml (Flush NaCl 0.9%) ??3 mL, IV Push, Every 8 hours Ondansetron 2mg/mL Inj (2mL Vial) (Ondansetron Inj) ??4 mg, IV Push, Every 6 hours ? Results Recent Labs BLOOD COUNT & DIFF WBC 4.9 k/mm3 ()?? 10/10/2024 01:27 RBC 3.24 m/mm3 (Low)?? 10/10/2024 01:27 Hgb 8.4 Gm/dL (Low)?? 10/10/2024 01:27 Hct 27.2 % (Low)?? 10/10/2024 01:27 MCV 84.0 femtoliters ()?? 10/10/2024 01:27 MCH 25.9 pg (Low)?? 10/10/2024 01:27 MCHC 30.9 Gm/dL (Low)?? 10/10/2024 01:27 Platelet Count 289 k/mm3 ()?? 10/10/2024 01:27 RDW-SD 46.4 femtoliters ()?? 10/10/2024 01:27 MPV 9.2 femtoliters (Low)?? 10/10/2024 01:27 Nucleated RBC (Automated) 0.0 #/100 WBC'S ()?? 10/10/2024 01:27 Abs. NRBC 0.0 k/mm3 ()?? 10/10/2024 01:27 Abs. Neut 3.6 k/mm3 ()?? 10/10/2024 01:27 Abs. Lymph 0.7 k/mm3 (Low)?? 10/10/2024 01:27 Abs. Citrus 0.5 k/mm3 ()?? 10/10/2024 01:27 Abs. Eo 0.1 k/mm3 ()?? 10/10/2024 01:27 Abs. Baso 0.1 k/mm3 ()?? 10/10/2024 01:27 Neut % 72.3 % ()?? 10/10/2024 01:27 Lymph % 14.8 % (Low)?? 10/10/2024 01:27 Citrus % 9.5 % ()?? 10/10/2024 01:27 Eos % 1.8 % ()?? 10/10/2024 01:27 Baso % 1.2 % ()?? 10/10/2024 01:27 Imm Gran 0.4 % ()?? 10/10/2024 01:27 Abs. Imm Gran 0.0 k/mm3 ()?? 10/10/2024 01:27 ?? CHEM GENERAL Sodium 139 mmol/L ()?? 10/10/2024 01:27 Potassium 4.5 mmol/L ()?? 10/10/2024 01:27 Chloride 102 mmol/L ()?? 10/10/2024 01:27 Bicarbonate Level 25 mmol/L ()?? 10/10/2024 01:27 Anion Gap 12 ()?? 10/10/2024 01:27 BUN 35 mg/dL (High)?? 10/10/2024 01:27 Creatinine-Blood 1.55 mg/dL (High)?? 10/10/2024 01:27 Estimated GFR Creatinine 34 ML/MIN/1.73 M2 ()?? 10/10/2024 01:27 Magnesium 2.4 mg/dL (High)?? 10/10/2024 01:27 ? CBC, CBC w/Diff?? CBC?? Differential?? WBC: 4.9 k/mm3 () Abs. Neut: 3.6 k/mm3 () RBC:??3.24 m/mm3??Low () Abs. Lymph:??0.7 k/mm3??Low () Hct:??27.2 %??Low () Abs. Citrus: 0.5 k/mm3 () RDW-SD: 46.4 femtoliters () Abs. Eo: 0.1 k/mm3 () Nucleated RBC (Automated): 0 #/100 WBC'S () Abs. Baso: 0.1 k/mm3 () Abs. NRBC: 0 k/mm3 () Neut %: 72.3 % () ?? Lymph %:??14.8 %??Low () ?? Citrus %: 9.5 % () ?? Eos %: 1.8 % () ?? Baso %: 1.2 % () ?? Imm Gran: 0.4 % () ?? Abs. Imm Gran: 0 k/mm3 () ? LFT?? No qualifying data available. ?? Urinalysis?? No qualifying data available. ? Assessment/Plan ? Diagnoses (aortic stenosis) ??(I35.0) S/P TAVR (transcatheter aortic valve replacement) ??(Z95.2) ?? Assessment:??78-year-old female with PMHx of known , AF on Xarelto, pulmonary??HTN, asthma, hypertrophic cardiomyopathy, heart block s/p PPM who presented for an elective TAVR. Post-op course complicated by subjective dyspnea. ?? 10/04/24 S/p transfemoral TAVR (29mm Evolute bioprosthetic valve) ?? Plaster Lather: Dr. Henderson Cardiac Surgeon: Dr. Celeste? Primary Station Engineer Main Line: Dr. Stuart ?? Neuro Debility/deconditioning -??Re-evaluated by??PT, patient??only ambulated 6ft in??her room with a walker??and PT??assistance and??refused??to ambulate??further or??use the??stairs; therefore, their recommendation remains to discharge to rehab?? - Has been accepted at??rehab placement - Tylenol as needed for pain? Cardiac S/p TF-TAVR Hx??AF on Xarelto, pulmonary??HTN, hypertrophic cardiomyopathy, heart block s/p PPM - Groins w/o hematoma - Rhythm/EKG: Paced rhythm - Anticoagulation plan: aspirin 81mg daily and home Xarelto 15mg nightly reduced due to renal status - POD1 echo: LVEF 65-70%, ASA in aortic position, MG 7mmHg, mild-mod paravalvular leak, no significant pericardial effusion - Shortness of breath improved?? - Evaluated by??Cardiology at the request of??the patient; POCUS??without pericardial effusion, cleared??for discharge -??Continue amiodarone 200mg daily, Norvasc 10mg daily,? - Follow-up echocardiogram will be arranged for her by the TAVR team - She will need to follow-up with her Station Engineer Main Line and the Interventionalist - She will obtain follow-up??CBC and BMP in??1 week ?? Pulm Shortness of breath (resolved) - Breathing comfortably on??room air??maintaining SpO2 96-98% - CXR 10/08 with improved LLL atelectasis/effusion - Encourage IS, coughing/deep breathing, and out of bed/ambulation ?? GI - Cardiac diet?? - Bowel regimen as ordered ?? Renal - Baseline creatinine 0.9, creatinine increased to 1.5, - dc Lasix today reassess tomorrow - Voiding without issues? Heme - H&H stable? ID - WBC count stable she remains afebrile ?? Disposition: Anticipate discharge in the next 24 hours if renal status improves ?? Discharge Planning:? Estimated Discharge Date ? Consult note * Chirag Blanco MD: PERFORM, MODIFY, MODIFY Event Display: Consultation Note Authored Date: Patient: ??TYNAN, SOPHIE ? Age:??78 Years?Sex:??Female?:??1945?? Indication for Consult Reason for consult: Dyspnea post TAVR Requesting Provider: ISABELLA Oliver Station Engineer Main Line Consulted: Dr. Villavicencio Outpatient Station Engineer Main Line: Dr. Stuart at [place] History of Present Illness/Interval History This is a 78-year-old female with a history of hypertrophic cardiomyopathy status post alcohol septal ablation, atrial fibrillation, complete heart block status post pacemaker, and pulmonary hypertension who presented to [facility] on 10/04/2024 for TAVR procedure.?? Procedure was uncomplicated with moderate perivalvular leak however no central aortic insufficiency. Patient was doingwell however was still having some subjective shortness of breath and wearing 2 L of O2 nasal cannula for comfort.?? Chest x-ray was performed which demonstrated a small pleural effusion on the left with compressive atelectasis however no significant concerning findings for pulmonary edema.?? Labs this hospitalization demonstrated a hemoglobin of 8.8 which appears to be close to her baseline however no other significant concerning findings on labs as well.?? Post TAVR EKG demonstrated AV dual paced rhythm.?? Due to patient's ongoing subjective shortness of breath, cardiology was consulted forfurther evaluation as well as medication management. ?? Upon my evaluation patient was sitting comfortably in the chair.?? Patient states her shortness of breath has significantly improved over the course of the past day and she only intermittently puts her oxygen on 4 her occasional shortness of breath.?? Patient states when the shortness of breath occurs she is just sitting there and notices it at which point she starts to panic which she states exacerbates it.?? She denies any chest pain or palpitations during these episodes.?? Patient expresses significant anxiety about going home as she is worried if something were to happen she would be unable to get help in time.?? Patient states she does have her son around however he works in [place] and with hunting season approaching he will be busy.?? Patient was able to get up from thechair and ambulate to the bed with the help of her walker without developing any shortness of breath during my evaluation. Review of Systems Full ROS performed and negative except as mentioned above. Physical Exam Vitals & Measurements T:??98.2?F?? HR:??72??(Peripheral)?? RR:??16?? BP:??141/73?? SpO2:??96%?? HT:??173??cm?? WT:??61.7??kg?? BMI:??21.38?? Weight lb/oz: 136 lb 0 oz General Appearance: The patient is in NAD. Cardiovascular: RRR S1 and S2 heard with faint systolic murmur at LUSB. No JVD. Respiratory: ??Breath sounds clear to auscultation bilaterally. No wheezing. Good air movement throughout both lungs. GI: Soft. Nontender and nondistended. Normal bowel sounds present throughout abdomen.?? MS: ??No edema or erythema in the lower extremities. No wounds seen on the feet. Peripheral sensation intact.?? Neuro: ??No slurred speech. ??Patient seen moving their upper and lower extremities independently. Psych: Alert and oriented x3. Appropriate and pleasant. Assessment/Plan ?? Problem list: 1.?? Shortness of breath 2.?? Aortic stenosis status post TAVR on 10/04 3.?? Hypertrophic cardiomyopathy status post??alcohol??septal ablation 4. ??Complete heart block status post pacemaker ?? This is a 78-year-old female with above past medical history presented to [facility]??for??elective TAVR procedure.?? Procedure was uncomplicated however there was some moderate??paravalvular leak postprocedure.?? Patient has been doing well on her??diuretic??regimen??of 40 mg of furosemide??twice kev ly??however does still endorse intermittent episodes of subjective dyspnea although SpO2 is 100% during these episodes.?? These episodes appear??to??occur occasionally??and are not associated with chest pain or palpitations.?? Patient puts her O2 on when these episodes occur??which she states seemsto help her??symptoms.?? She does??state that when she notices these episodes she??starts to panic which makes her??symptoms worse.?? Despite this she does state that she has significantly improved over the last 1 to 2 days??and is doing much better now. ??On exam she appears to be euvolemic??with bedside POCUS demonstrating??nondilated IVC however??does collapse appropriately with respiration.??There was no concern for??pericardial effusion??on POCUS as well.?? At this time??patient's??episodes of dyspnea do not appear to be cardiac in nature. ??Would continue patient's current medication regimen??and patient can follow-up with her outpatient wrapping checker post-discharge. ?? Recommendations: -Continue furosemide 40 mg p.o.??twice daily -Continue amlodipine 10 mg daily -No further cardiac workup indicated at this time ?? Cardiology will sign off at this time. ??Please reach out for further questions. ?? Patient was discussed with Dr. Villavicencio ?? Chirag Blanco MD Cardiovascular Disease Fellow PGY-4 [facility] Pager #[phone] Allergies Latex Home Medications Albuterol: 2 puffs, Inhalation, Every 6 hours, PRN (for wheezing) amiODARONE: TAKE 1 TABLET BY MOUTH DAILY Amlodipine: 10 mg = 1 tablet, By Mouth, Daily Aspirin: 81 mg = 1 tablet, By Mouth, Daily Furosemide: 40 mg = 1 tablet, By Mouth, 2 times a day Miscellaneous Rx (CBC, BMP in 1 week): See Instructions, Please forward results to Dr. Henderson Miscellaneous Rx (CBC, BMP in 1 week): See Instructions, Please forward results to Dr. Henderson, thanks Montelukast: 10 mg = 1 tablet, By Mouth, Daily in PM rivaroxaban: 20 mg = 1 tablet, By Mouth, Daily in PM Hospital Medications Medications (11) Active SCHEDULED: (6) Amiodarone 200 mg Tablet (amiodarone 200 mg oral tablet) ??200 mg, By Mouth, Daily Amlodipine 10 mg Tablet (amLODIPine 10 mg oral tablet) ??10 mg, By Mouth, Daily Aspirin 81 mg Chew Tablet (Aspirin Chew Tablet) ??81 mg, By Mouth, Daily Furosemide 40 mg Tablet (Lasix 40 mg oral tablet) ??40 mg, By Mouth, 2 times a day Montelukast 10 mg Tablet (montelukast 10 mg oral tablet) ??10 mg, By Mouth, Daily Rivaroxaban 20 mg Tablet (Xarelto) ??20 mg, By Mouth, Daily at supper CONTINUOUS: (1) NaCL 0.9% (150 mL) Cont IV 300 mL (NaCL 0.9% 300 mL) ??300 mL, IV Infusion, 50 mL/hr PRN: (4) Acetaminophen 325 mg Tablet (Acetaminophen Tablet) ??650 mg, By Mouth, Every 8 hours Albuterol 0.083% Inhalation Solution (Albuterol 0.083% inhalation rosio) ??2.5 mg 3 mL, BAND Nebulizer, Every 4 hours NaCl 0.9% Flush 3ml (Flush NaCl 0.9%) ??3 mL, IV Push, Every 8 hours Ondansetron 2mg/mL Inj (2mL Vial) (Ondansetron Inj) ??4 mg, IV Push, Every 6 hours Lab Results Cardiology Labs WBC: 5.3 k/mm3 (10/08/24) RBC:??3.45 m/mm3??Low (10/08/24) Hgb:??8.8 Gm/dL??Low (10/08/24) Hct:??29.2 %??Low (10/08/24) MCV: 84.6 femtoliters (10/08/24) MCH:??25.5 pg??Low (10/08/24) MCHC:??30.1 Gm/dL??Low (10/08/24) Platelet Count: 274 k/mm3 (10/08/24) RDW-SD: 46.5 femtoliters (10/08/24) Nucleated RBC (Automated): 0 #/100 WBC'S (10/08/24) Abs. Neut: 3.8 k/mm3 (10/08/24) Abs. Lymph: 0.8 k/mm3 (10/08/24) Abs. Citrus: 0.5 k/mm3 (10/08/24) Abs. Eo: 0.1 k/mm3 (10/08/24) Abs. Baso: 0.1 k/mm3 (10/08/24) Neut %: 72.6 % (10/08/24) Citrus %: 8.9 % (10/08/24) Eos %: 2.3 % (10/08/24) Baso %: 0.9 % (10/08/24) Imm Gran: 0.4 % (10/08/24) Abs. Imm Gran: 0 k/mm3 (10/08/24) Sodium: 139 mmol/L (10/08/24) Potassium: 4.2 mmol/L (10/08/24) Chloride: 104 mmol/L (10/08/24) Bicarbonate Level: 25 mmol/L (10/08/24) Glucose Level:??114 mg/dL??High (09/28/24) BUN: 19 mg/dL (10/08/24) BUN: 22 mg/dL (09/28/24) Creatinine-Blood: 0.94 mg/dL (10/08/24) Calcium: 8.8 mg/dL (09/28/24) Diagnostic Impression CT CT TAVR Angio Chest ?? 14:44:44 IMPRESSION: 1. Aortic valve type: tricuspid. 2. Aortic valve annular dimensions, coronary ostial distances, and arterial diameters as above. No evidence of obstructive upper extremity access vessel stenosis. 3. LVOT calcification: Severe. 4. Severe mitral annular calcification, extending into the mitral leaflets and contiguous with the extensive LVOT calcification. 5. Fusiform aneurysm ascending thoracic aorta, 4.2 x 4.2 cm. There is also mild enlargement of the descending thoracic aorta. 6. Severe enlargement of the pulmonary artery, 5.0 cm, a finding associated with pulmonary hypertension. 7. Biatrial enlargement. 8. Mild right axillary, mediastinal, and right hilar lymphadenopathy of uncertain significance. This needs to be correlated clinically. 9. Multiple thyroid nodules including some with coarse calcification and radiodense/enhancing muralnodularity. Recommend correlation with ultrasound. ? An actionable message (Yellow) has been communicated via the [employer] system on 09/16/2024 3:23 PM, Message ID [id number]. WSN: [id number] ? Ordering Physician: Eduardo Humphries ?? Signed By: Dax Bridges MD CT TAVR Heart ?? 14:44:44 IMPRESSION: 1. Aortic valve type: tricuspid. 2. Aortic valve annular dimensions, coronary ostial distances, and arterial diameters as above. No evidence of obstructive upper extremity access vessel stenosis. 3. LVOT calcification: Severe. 4. Severe mitral annular calcification, extending into the mitral leaflets and contiguous with the extensive LVOT calcification. 5. Fusiform aneurysm ascending thoracic aorta, 4.2 x 4.2 cm. There is also mild enlargement of the descending thoracic aorta. 6. Severe enlargement of the pulmonary artery, 5.0 cm, a finding associated with pulmonary hypertension. 7. Biatrial enlargement. 8. Mild right axillary, mediastinal, and right hilar lymphadenopathy of uncertain significance. This needs to be correlated clinically. 9. Multiple thyroid nodules including some with coarse calcification and radiodense/enhancing muralnodularity. Recommend correlation with ultrasound. ? An actionable message (Yellow) has been communicated via the [employer] system on 09/16/2024 3:23 PM, Message ID [id number]. WSN: [id number] ? Ordering Physician: Eduardo Humphries ?? Signed By: Dax Bridges MD ECG ECG 12-Lead ?? 19:38:12 Please click on pdf link to open report ?? Signed By: Hemanth Freeman MD ?? ECG 12-Lead ?? 19:38:12 Ventricular Rate: 70 BPM Atrial Rate: 70 BPM QRS Duration: 220 ms Q-T Interval: 546 ms QTC Calculation(Bazett): 589 ms R York: -81 degrees T York: 99 degrees AV dual-paced rhythm Abnormal ECG When compared with ECG of 05-Oct-2024 19:37, No significant change Confirmed by Hemanth Freeman ([id number]) on 10/07/2024 10:03:20 AM ?? [place]: Hemanth Freeman ?? Signed By: Hemanth Freeman MD Echo Echocardiogram - Complete ?? 11:05:49 Summary 1. . There is mild to moderate concentric left ventricular hypertrophy. 2. The LV systolic function is vigorous . The left ventricular ejection fraction is 65-70 %. There are no regional wall motion abnormalities. 3. The left atrium is severely dilated. 4. There is a transcatheter aortic valve implantation (ASA Evolut FX+ #29) in the aortic position. There is mild to moderate paravalvular leak. (See image 55 and 77). There is no central aortic insufficiency. The mean gradient is 7 mmHg. 5. There is progressive (mild) mitral stenosis with mean gradient of 6 mmHg. 6. The right ventricle is normal in size and function. 7. The right atrium is severely dilated. 8. There is severe tricuspid valve regurgitation. 9. There is moderate pulmonary hypertension. The pulmonary artery systolic pressure estimation is 60-65 mmHg. ?? Comparison Comparison is made to the study of October 04, 2024. There is still mild to moderate perivalvular leak. ?? Signature ?? Signed By: Agustin Barrera MD Cardiac Cath Procedure Cardiac Cath Procedure ?? 09:02:00 Conclusions ?? Diagnostic Summary 78-year-old female with severe aortic valve stenosis who recently developed congestive heart failure. She has been quite symptomatic and is being assessed for transcatheter valve placement. She is here for left and right heart catheterization. ?? Hemodynamics: Elevated systemic pressures. Mildly elevated LVEDP 15 mmHg. Mean gradient across aortic valve of 30 mmHg. Aortic valve area by Hakki 0.73. Cardiac index 2.6. Pulmonary capillary wedge pressure: 24 mmHg with V waves up to 34 mmHg. PA pressure 80/31 mean 49. RV 85/16. RA 10 mmHg. ?? Coronary anatomy: Right dominant circulation. Severe PLV stenosis. Moderate left circumflex and LAD stenosis. ?? Patient is here for left and right heart catheterization before aortic valve placement. She has severe aortic valve stenosis by our assessment. 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 ?? Diagnostic Recommendations Aggressive secondary risk factor modification according to ATP III guidelines. Titration of antihypertensive medicines and diuretics. Heart team assessment for transcatheter aortic valve placement. ?? ACC Diagnostic Recommendations: Other cardiac therapy without CABG or PCI. ?? Complications:None. ?? Signatures ?? Signed By: Yandel ORTIZ, Eduardo Problem List/Past Medical History Ongoing Asthma Atrial fibrillation HOCM (hypertrophic obstructive cardiomyopathy) Pacemaker Pulmonary hypertension Procedure/Surgical History No qualifying data available. Patient Education Titles [employer] Patient Education - Cardiac Rehabilitation?? Follow-Up Appointments Added Follow Up ?Time Frame ?Comments Ananda FUNES, Solitario Lange?10/19/2024 09:45?Please attend your follow-up appointment with the Plaster Lather's office as scheduled. ECHO?10/13/2024 13:00?Please attend your echocardiogram appointment??that has been scheduled for you.?? Sade ORTIZ, Ankit Palacios?2 to 3 weeks?Please call your primary Station Engineer Main Line to schedule a follow-up appointment.?? Jerome Guido MD?2 to 5 weeks?Please call your PCP to schedule a follow-up appointment.?? [facility]?Cardiac Rehab Patient Instructions ?-Wound care in groins: May take shower; do not apply lotions or perfumed soap to surgical wound; Pat dry do not rub wounds. ??-Avoid heavy lifting or vigorous exercise for 1 week ?-Call Cardiology Office?? for signs of infection which ??include fever, chills, redness, pus like drainage or wound separation or bleeding. ?-Call cardiology office at any time for questions or concerns.?-Weigh yourself daily at the same time of day, preferably ??in the morning and record.?-If you gain ??or loose more than 3 pounds in 1 day or 5 pounds in one week, call the cardiology office. ??-Follow up with your wrapping checker as scheduled or call the office for an appointment ??-Obtain CBC and BMP in 1 week after discharge Social History Tobacco Former smoker Family History No family history recorded. * Deng Villavicencio MD: PERFORM Event Display: Consultation Note Authored Date: [id number] I agree with the documentation as provided by Dr. Blanco. Will f/u outpatient. ? Deng Villavicencio MD Cardiology [facility] Patient Care team information Care Team Personnel Name: Jerome Guido MD Position: Reference Physician Member Role: PCP Address: [address] [place] [address] [place] [address]- Telecom: [phone] Name: Philip Obrien RN Position: S RN Member Role: Primary Care Nurse Name: Harshal Harrison RN Position: S RN Member Role: Primary Care Nurse Name: Sarah Hand RN Position: S RN Member Role: Primary Care Nurse Care Team Related Persons Name: MARCY HOMER Insurance Providers Guarantor name: SOPHIE VIDAL Health Plan Information #: 2 Payer: MEDICARE PART B OUTPT Member Number: [id number] Policy Number: NA Group Number: NA Health Plan Information #: 3 Payer: [facility] Member Number: [id number] Policy Number: NA Group Number: [id number] Health Plan Information #: 4 Payer: [facility] Member Number: [id number] Policy Number: NA Group Number: [id number] Health Plan Information #: 1 Payer: MEDICARE A INPT 25 Member Number: [id number] Policy Number: NA Group Number: NA
--- OUTSIDE RECORDS SUMMARY | 2024-10-24 12:52 | XMS_ITS ---
Author Organization Jerome Guido MD Address [address] [place] [address] [phone] Care Team Providers Care Burr Sander Name Role Phone Jerome Guido Primary Care Provider REASON FOR VISIT discharge Encounters Encounter Location Date Provider Diagnosis Jerome Guido MD [address] [place], [place] [id number] 09/06/2024 Jerome Guido PLAN OF TREATMENT No Information
--- NOTE | 2024-10-24 12:53 | CA_ITS ---
Transthoracic Echocardiogram Patient (Last, First, Middle): Sophie Schulz E Gender: Female Date of : 1945 Age: 78 Procedure Date: 10/24/2024 Procedure Type: Transthoracic Echocardiogram Location: OP Height: 172.72 cm Weight: 61.24 kg BSA: 1.73 m2 Heart Rate: bpm BP: 132 / 70 mmHg Reporting Coordinator: Referring MD: Fortunato Henderson MD Symptoms: S/P TAVR Study Quality: Adequate ECG Rhythm: Ventriculary paced rhythm Conclusions: - The left ventricular systolic function is normal. The visually estimated ejection fraction is between 65-70%. - Severe biatrial enlargement. - A bioprosthetic aortic valve is present. The prosthetic aortic valve appears to be functioning normally. Mild to early moderate para-valvular regurgitation. - There is severe mitral annular calcification. There is mild to moderate mitral valve regurgitation. - There is severe tricuspid valve regurgitation. - Severe pulmonary hypertension is present. - The inferior vena cava is dilated and collapses less than 50% with inspiration. Findings Left Ventricle Normal left ventricular cavity size. There is mildly increased left ventricular wall thickness. The left ventricular systolic function is normal. The visually estimated ejection fraction is between 65-70%. Diastolic function is indeterminate on the basis of available data. Right Ventricle Moderately increased right ventricular cavity size. There is a pacemaker wire seen in the right ventricle. Atria Severe biatrial enlargement. Aortic Valve A bioprosthetic aortic valve is present. The prosthetic aortic valve appears to be functioning normally. The mean gradient is 7 mmHg. Mild to early moderate para-valvular regurgitation. Mitral Valve There is severe mitral annular calcification. There is mild to moderate mitral valve regurgitation. There is no mitral valve stenosis. Pulmonic Valve There is mild pulmonic valve regurgitation. Tricuspid Valve There is severe tricuspid valve regurgitation. The right ventricular systolic pressure is 67 mmHg. Severe pulmonary hypertension is present. Great Vessels The asc aorta is normal in size. Venous The inferior vena cava is dilated and collapses less than 50% with inspiration. Prior Study Comparison Changes noted compared to prior study dated: 08/12/2024. s/p TAVR. Measurements 2D Linear Measurements IVSd: 1.24 0.6-0.9/0.6-1.0 cm LVIDd: 4.88 3.9-5.3/4.2-5.9 cm LVIDd Index: 2.82 2.4-3.2/2.2-3.1 cm/m2 LVIDs: 3.22 2.0-3.6 cm LVPWd: 1.23 0.7-1.1 cm Ao Root: 3.30 2.1-3.5 cm LA Diam: 5.20 2.7-3.8/3.0-4.0 cm LAIDs Index: 3.01 1.5-2.3 cm/m2 LV Mass: 292.09 67-162/88-224 g LV Mass Index: 168.84 43-95/49-115 g/m2 LVOT Diam: 1.90 3.0+(-)1.3 cm 2D Systolic Function EF 4C: 66.40 >55% EF 2C: 76.00 >55% EF BiP: 71.60 >55% Mitral Valve MV VTI: 0.47 MV Pk Yo: 1.78 MV Mn Yo: 1.01 MV Pk Grad: 13.00 MV Mn Grad: 5.00 MV Pk E: 1.52 MV Decel Time: 268.00 E'Lateral: 8.81 E'Medial: 5.00 E/E' Med: 30.40 E/E' Lat: 17.30 PHT: 78.00 MVA PHT: 2.82 Decel Pasco: 5.68 Aortic Valve AoV Pk Yo: 1.92 AoV Mn Yo: 1.20 AoV VTI: 0.35 AoV Pk Grad: 15.00 Aov Mn Grad: 7.00 TYREL Cont.VTI: 1.80 AI Pk Yo: 3.43 AI [place]: 3.16 LVOT LVOT Pk Yo: 1.09 LVOT Mn Yo: 0.64 LVOT VTI: 0.22 LVOT Pk Grad: 5.00 LVOT Mn Grad: 2.00 LVOT Diam: 1.90 LVOT Area: 2.84 Diastolic Function MV Pk E: 1.52 E'Medial: 5.00 E/E' Med: 30.40 E' Laterial: 8.81 E/E' Lat: 17.30 Right Ventricle TAPSE (mm): 27.00 TVS' Yo: 12.00 Tricuspid Valve TR Pk Yo: 3.61 TR Pk Grad: 52.00 RA Press: 15.00 RVSP: 67.00 Great Vessels Aorta Ao Root-2D: 3.30 2.0-3.7 cm Ao Asc: 3.00 2.1-3.4 cm Pulmonary Valve PV Pk Yo: 1.36 Peak PV Grad: 7.00 Updated in Other Vendor System with Status of Final Aníbal Mendes MD electronically signed on 10/25/2024 10:51:21 AM with status of Final
--- OUTSIDE RECORDS SUMMARY | 2024-10-24 12:53 | XMS_ITS ---
Author Organization Jerome Guido MD Address [address] [place] [phone] Care Team Providers Care Process Camera Operator Name Role Phone Jerome Guido Primary Care Provider REASON FOR VISIT FYI Encounters Encounter Location Date Provider Diagnosis Jerome Guido MD [address] [place], [place] [id number] 08/30/2024 Jerome Guido PLAN OF TREATMENT No Information
--- OUTSIDE RECORDS SUMMARY | 2024-10-24 12:53 | XMS_ITS | Patient Health Record ---
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 Name Role Phone Jerome Guido Primary Care Provider [phone] ALLERGIES No Known Allergies RESULTS Component Value Reference Range Notes Complete Blood Count no Diff Reviewed date:01/27/2024 04:59:07 PM Interpretation: Performing Lab:[facility], [address] [place] [phone] Notes/Report: White Blood Count 6.3 4.8-10.8 X10*3/uL Red Blood Count 4.14 4.20-5.50 X10*6/uL Hemoglobin 10.0 12.0-16.0 g/dl Hematocrit 33.7 37.0-47.0 % Mean Corpuscular Volume 81.4 80.0-98.0 fL Mean Corpuscular Hemoglobin 24.2 27.0-33.0 pg Mean Corpuscular HGB Conc 29.7 31.0-35.0 g/dl Red Cell Distribution Width 19.2 11.0-16.0 % Platelet Count 380 160-400 X10*3/uL Mean Platelet Volume 8.9 9.4-12.3 fL NRBC Pct Auto 0.0 0.0-0.2 /100WBC NRBC Abs Auto 0.000 0.0-0.012 X10*3/uL Liver Panel Reviewed date:01/27/2024 04:53:59 PM Interpretation: Performing Lab:[address] [phone] Notes/Report: Bilirubin Total 0.7 0.0-1.0 mg/dL Bilirubin Direct 0.3 0.0-0.5 mg/dL Aspartate Amino Transferase 12 5-31 U/L Alanine Aminotransferase 7 0-31 U/L Total Protein 7.9 6.5-8.0 g/dL Albumin Level 3.8 3.5-5.0 g/dL Alkaline Phosphatase 148 39-117 U/L Basic Metabolic Panel Reviewed date:01/27/2024 04:58:12 PM Interpretation: Performing Lab:[address] [address] Notes/Report: Sodium 145 135-145 mmol/L Potassium 4.5 3.3-5.1 mmol/L Chloride 112 96-108 mmol/L Carbon Dioxide 23 22-29 mmol/L Anion Gap 15 12-20 Blood Urea Nitrogen 25 9-16 mg/dL Creatinine 0.84 0.5-1.4 mg/dL Estimated Glomerular Filt Rate > 60 NOTE: For -Djibout[place] individuals, multiply the result by 1.210. Chronic Kidney Disease: Estimated GFR < 60 mL/min/1.73m2 Severe Kidney Disease: Estimated GFR < 15 mL/min/1.73m2 Glucose Random 98 60-115 mg/dL Calcium 9.3 8.4-10.2 mg/dL TSH reflex Free T4 Reviewed date:01/27/2024 04:54:08 PM Interpretation: Performing Lab:[address] [address] Notes/Report: TSH reflex Free T4 1.85 0.32-4.0 uIU/mL XR chest 2V Reviewed date:02/02/2024 11:49:17 AM Interpretation: Performing Lab: Notes/Report: [address] [address] XRay Report Signed Patient: Sophie Schulz MR#: [id number] : 1945 Acct:[id number] Age/Sex: 78 / F ADM Date: 01/26/24 Loc: HO.LAB Attending Dr: Ankit Stuart MD Ordering Physician: Ankit Stuart MD Date of Service: 01/26/24 Procedure(s): XR chest 2V Accession Number(s): [id number] cc: Jerome Guido MD; Ankit Stuart MD EXAMINATION: XR CHEST CLINICAL INFORMATION: Paroxysmal atrial fibrillation. COMPARISON: 05/05/2023, 08/14/2022. TECHNIQUE: 2 views of the chest were obtained. FINDINGS: The lungs remain well-inflated. Left subclavian approach pacer redemonstrated with leads overlying right atrium and right ventricle. Dense mitral valve calcification. Cardiac silhouette is enlarged. No gross pleural effusion. Stable cardiomediastinal silhouette with redemonstration of hilar prominence. Degenerative changes in the thoracic spine. No new focal consolidation to suggest pneumonia. XR/XR chest 2V IMPRESSION: 1. No evidence of pneumonia. 2. Enlarged cardiac silhouette. Dictated By: Sandra Silva MD Signed By: <Electronically signed by Sandra Silva MD in OV> 02/02/24 0714 DD/ 1634 TD/TT: Av Specialist: XR chest 1V Reviewed date:09/03/2024 12:55:16 PM Interpretation: Performing Lab: Notes/Report: [address] [address] XRay Report Signed Patient: Sophie Schulz MR#: [id number] : 1945 Acct:[id number] Age/Sex: 78 / F ADM Date: 09/02/24 Loc: HO.ED Attending Dr: Ordering Physician: David Loredo MD Date of Service: 09/02/24 Procedure(s): XR chest 1V Accession Number(s): [id number] cc: Jerome Guido MD; David Loredo MD EXAMINATION: XR CHEST CLINICAL INFORMATION: sob COMPARISON: X-ray dated January 26, 2024 TECHNIQUE: Frontal view of the chest was obtained. FINDINGS: Menisci shaped opacity left lower hemithorax. Blunting of the right costophrenic angle. Prominence of the interstitial lung markings. Cardiomediastinal silhouette is enlarged. Heart valve calcification likely mitral. 2. Intact electrode leads in the right heart chambers from the left-sided pacemaker. Calcified plaque aortic arch. Prominent right perihilar. Degenerative changes in the glenohumeral joints. Multilevel spondylosis. XR/XR chest 1V IMPRESSION: Bilateral pleural effusions, left greater than right. Cardiomegaly versus pericardial effusion. Mild interstitial lung edema. Calcified mitral valve. Electronically signed by: Allan Crawford MD 09/02/2024 07:18 AM EDT RP Dictated By: Allan Marks Signed By: <Electronically signed by Allan Wood in OV> 09/02/24 0718 DD/ 1 TD/TT: 09/02/24631 Av Specialist: Zoltan Mustafa. Panel Reviewed date:09/04/2024 03:58:04 PM Interpretation: Performing Lab:[facility], [address] [place] [phone] Notes/Report: Sodium 143 135-145 mmol/L Potassium 4.6 3.3-5.1 mmol/L Chloride 107 96-108 mmol/L Carbon Dioxide 28 22-29 mmol/L Test was veri fied by repeat analysis. Anion Gap 13 12-20 Blood Urea Nitrogen 19 9-16 mg/dL Creatinine 0.91 0.5-1.4 mg/dL Creatinine Clr Calc Pharmacy 46.8 Provided height and weight: 160.02 cm, 67.1 kg. eGFR (calculated from the MDRD study equation) and eCrCl (calculated from the Cockcroft-Gault equation) are based on different parameters and may not yield comparable results. If eCrCl result is absurd, please check patient's height/weight. Estimated Glomerular Filt Rate 60 NOTE: For -[place]jibout[place] individuals, multiply the result by 1.210. Chronic Kidney Disease: Estimated GFR < 60 mL/min/1.73m2 Severe Kidney Disease: Estimated GFR < 15 mL/min/1.73m2 Glucose Random 102 60-115 mg/dL Calcium 8.9 8.4-10.2 mg/dL Bilirubin Total 0.6 0.0-1.0 mg/dL Aspartate Amino Transferase 20 5-31 U/L Alanine Aminotransferase 20 0-31 U/L Total Protein 6.6 6.5-8.0 g/dL Albumin Level 3.5 3.5-5.0 g/dL Alkaline Phosphatase 125 39-117 U/L Complete Blood Count no Diff Reviewed date:09/04/2024 03:57:41 PM Interpretation: Performing Lab:[facility], [address] [place] [phone] Notes/Report: White Blood Count 5.4 4.8-10.8 X10*3/uL Red Blood Count 4.14 4.20-5.50 X10*6/uL Hemoglobin 11.2 12.0-16.0 g/dl Hematocrit 36.4 37.0-47.0 % Mean Corpuscular Volume 87.9 80.0-98.0 fL Mean Corpuscular Hemoglobin 27.1 27.0-33.0 pg Mean Corpuscular HGB Conc 30.8 31.0-35.0 g/dl Red Cell Distribution Width 16.2 11.0-16.0 % Platelet Count 322 160-400 X10*3/uL Mean Platelet Volume 9.5 9.4-12.3 fL NRBC Pct Auto 0.0 0.0-0.2 /100WBC NRBC Abs Auto 0.000 0.0-0.012 X10*3/uL Comprehensive Met. Panel Reviewed date:09/04/2024 03:54:21 PM Interpretation: Performing Lab:[facility], [address] [place] [phone] Notes/Report: Sodium 142 135-145 mmol/L Potassium 4.1 3.3-5.1 mmol/L Chloride 105 96-108 mmol/L Carbon Dioxide 28 22-29 mmol/L Anion Gap 13 12-20 Blood Urea Nitrogen 20 9-16 mg/dL Creatinine 0.87 0.5-1.4 mg/dL Creatinine Clr Calc Pharmacy 49.0 Provided height and weight: 160.02 cm, 67.1 kg. eGFR (calculated from the MDRD study equation) and eCrCl (calculated from the Cockcroft-Gault equation) are based on different parameters and may not yield comparable results. If eCrCl result is absurd, please check patient's height/weight. Estimated Glomerular Filt Rate > 60 NOTE: For -[place]jib[place] individuals, multiply the result by 1.210. Chronic Kidney Disease: Estimated GFR < 60 mL/min/1.73m2 Severe Kidney Disease: Estimated GFR < 15 mL/min/1.73m2 Glucose Random 91 60-115 mg/dL Calcium 9.1 8.4-10.2 mg/dL Bilirubin Total 0.7 0.0-1.0 mg/dL Aspartate Amino Transferase 16 5-31 U/L Alanine Aminotransferase 17 0-31 U/L Total Protein 6.9 6.5-8.0 g/dL Albumin Level 3.6 3.5-5.0 g/dL Alkaline Phosphatase 126 39-117 U/L Basic Metabolic Panel Fastin g Reviewed date:09/04/2024 03:54:55 PM Interpretation: Performing Lab:[facility], [address] [place] [phone] Notes/Report: Glucose Fasting 91 60-99 mg/dL Complete Blood Count no Diff Reviewed date:09/05/2024 06:19:20 PM Interpretation: Performing Lab:[facility], [address] [place] [phone] Notes/Report: White Blood Count 5.2 4.8-10.8 X10*3/uL Red Blood Count 3.89 4.20-5.50 X10*6/uL Hemoglobin 10.5 12.0-16.0 g/dl Hematocrit 33.8 37.0-47.0 % Mean Corpuscular Volume 86.9 80.0-98.0 fL Mean Corpuscular Hemoglobin 27.0 27.0-33.0 pg Mean Corpuscular HGB Conc 31.1 31.0-35.0 g/dl Red Cell Distribution Width 16.0 11.0-16.0 % Platelet Count 332 160-400 X10*3/uL Mean Platelet Volume 9.1 9.4-12.3 fL NRBC Pct Auto 0.0 0.0-0.2 /100WBC NRBC Abs Auto 0.000 0.0-0.012 X10*3/uL Comprehensive Met. Panel Reviewed date:09/05/2024 12:57:43 PM Interpretation: Performing Lab:[facility], [address] [place] [phone] Notes/Report: Sodium 138 135-145 mmol/L Potassium 3.8 3.3-5.1 mmol/L Chloride 103 96-108 mmol/L Carbon Dioxide 27 22-29 mmol/L Anion Gap 12 12-20 Blood Urea Nitrogen 21 9-16 mg/dL Creatinine 0.85 0.5-1.4 mg/dL Creatinine Clr Calc Pharmacy 50.2 Provided height and weight: 160.02 cm, 67.1 kg. eGFR (calculated from the MDRD study equation) and eCrCl (calculated from the Cockcroft-Gault equation) are based on different parameters and may not yield comparable results. If eCrCl result is absurd, please check patient's height/weight. Estimated Glomerular Filt Rate > 60 NOTE: For -[place]jib[place] individuals, multiply the result by 1.210. Chronic Kidney Disease: Estimated GFR < 60 mL/min/1.73m2 Severe Kidney Disease: Estimated GFR < 15 mL/min/1.73m2 Glucose Random 94 60-115 mg/dL Calcium 9.0 8.4-10.2 mg/dL Bilirubin Total 1.0 0.0-1.0 mg/dL Aspartate Amino Transferase 19 5-31 U/L Alanine Aminotransferase 12 0-31 U/L Total Protein 6.7 6.5-8.0 g/dL Albumin Level 3.6 3.5-5.0 g/dL Alkaline Phosphatase 119 39-117 U/L Basic Metabolic Panel Fastin g Reviewed date:09/05/2024 12:56:58 PM Interpretation: Performing Lab:[facility], [address] [place] [phone] Notes/Report: Glucose Fasting 94 60-99 mg/dL Magnesium Reviewed date:09/05/2024 12:32:33 PM Interpretation: Performing Lab:[facility], [address] [place] [phone] Notes/Report: Magnesium 2.0 1.6-2.6 mg/dL B Type Natriuretic Peptide Reviewed date:09/05/2024 12:37:33 PM Interpretation: Performing Lab:[facility], [address] [place] [phone] Notes/Report: B Type Natriuretic Peptide 339 <100 pg/mL For those patients who are being treated with Natrecor (nesiritide, recombinant BNP), BNP testing should be performed at least two hours post treatment in order to ensure that only endogenous levels of BNP are detected. Complete Blood Count no Diff Reviewed date:09/11/2024 01:56:32 PM Interpretation: Performing Lab:[facility], [address] [place] [phone] Notes/Report: White Blood Count 5.3 4.8-10.8 X10*3/uL Red Blood Count 3.90 4.20-5.50 X10*6/uL Hemoglobin 10.5 12.0-16.0 g/dl Hematocrit 34.2 37.0-47.0 % Mean Corpuscular Volume 87.7 80.0-98.0 fL Mean Corpuscular Hemoglobin 26.9 27.0-33.0 pg Mean Corpuscular HGB Conc 30.7 31.0-35.0 g/dl Red Cell Distribution Width 15.8 11.0-16.0 % Platelet Count 343 160-400 X10*3/uL Mean Platelet Volume 9.7 9.4-12.3 fL NRBC Pct Auto 0.0 0.0-0.2 /100WBC NRBC Abs Auto 0.000 0.0-0.012 X10*3/uL Prothrombin Time INR Reviewed date:09/11/2024 01:55:43 PM Interpretation: Performing Lab:[facility], [address] [place] [phone] Notes/Report: Prothrombin Time 19.0 10.9-12.4 SEC INTERNATIONAL NORM RATIO 1.6 0.9-1.1 INTERNATIONAL NORMALIZED RATIO (INR) REFERENCE RANGES Reference Range For patients not on anticoagulant therapy: 0.9 - 1.1 INR ranges for oral anticoagulant therapy: For prevention and treatment of venous thrombosis and pulmonary embolism: 2.0 - 3.0 For acute myocardial infarction with aspirin therapy: 2.0 - 3.0 For acute myocardial infarction without aspirin therapy: 3.0 - 4.0 For patients with mechanical prosthetic heart valves: 2.5 - 3.5 Basic Metabolic Panel Reviewed date:09/11/2024 01:55:33 PM Interpretation: Performing Lab:[facility], [address] [place] [phone] Notes/Report: Sodium 145 135-145 mmol/L Potassium 4.5 3.3-5.1 mmol/L Chloride 109 96-108 mmol/L Carbon Dioxide 26 22-29 mmol/L Anion Gap 15 12-20 Blood Urea Nitrogen 28 9-16 mg/dL Creatinine 0.84 0.5-1.4 mg/dL Estimated Glomerular Filt Rate > 60 NOTE: For -Djiboutian individuals, multiply the result by 1.210. Chronic Kidney Disease: Estimated GFR < 60 mL/min/1.73m2 Severe Kidney Disease: Estimated GFR < 15 mL/min/1.73m2 Glucose Random 112 60-115 mg/dL Calcium 9.1 8.4-10.2 mg/dL REASON FOR REFERRAL Reason has some worse breat josh Diagnosis 1 Chronic systolic con gestive heart failure (I50.22) Referral Organization Jerome Guido MD Referring Provider First Name Jerome Referring Provider Last Name Lata Referring Provider Speciality Internal M edicine Referred Provider Ankit Stuart Referred Provider Specialty Cardiovascul ar Disease General Notes Carley Anthony 02:38:16 PM EDT > info faxed Gabrielle Annette 07/04/2024 01:18:55 PM EDT > info mailed to patient Referral Priority Routine Referral Appointment Date 07/28/2024 Reason pain right shoulder Diagnosis 1 Pain in right should er (M25.511) Referral Organization Jerome Guido MD Referring Provider First Name Jerome Referring Provider Last Name Lata Referring Provider Speciality Internal M edicine Referred Provider Gil Wan Referred Provider Specialty Orthopedic S urgery General Notes Carley Anthony 02:38:46 PM EDT > info faxed , Carley Anthony 06/30/2024 03:27:27 PM EDT > x [phone] was told to call back next week , Carley Anthony 07/04/2024 11:45:17 AM EDT > appt is with Gabrielle Campo Annette 07/04/2024 11:56:08 AM EDT > called patient with above info Referral Priority Routine Referral Appointment Date 07/12/2024 MEDICATIONS Medication SIG (Take, Route, Frequency, Duration) Notes Start Date End Date Status Xarelto 20 MG TAKE 1 TABLET BY ALANNA TH EVERY DAY WITH FOOD Orally Once a day for 90 days Active Montelukast Sodium 10 MG TAKE 1 TABLET B Y MOUTH EVERY DAY for 90 Active Albuterol Sulfate HFA 108 (90 Base) MCG/ACT INHALE 1 PUFF BY MOUTH EVERY 4 HOURS NEEDED for 33 Active Verapamil HCl ER 180 MG 1 capsule Orally bid Active Amiodarone HCl 200 MG 1 tablet Orally On ce a day Active Furosemide 20 MG 1 tablet by mouth ev oskar day Orally Once a day Not-Taking Ventolin HFA 108 (90 Base) MCG/ACT INHALE 2 PUFFS BY MOUTH EVERY 4 HOURS NEEDED for 16 Not-Taking Amoxicillin-Pot Clavulanate 875-125 MG 1 tablet Orally every 12 hrs for 10 days 08/12/2024 Active Ferrous Sulfate 324 (65 Fe) MG 1 tablet Orally twice a day Not-Taking Advair Diskus 250-50 MCG/DOSE INHALE 1 PUFF BY MOUTH TWICE DAILY for 30 Not-Taking ProAir HFA 108 (90 Base) MCG/ACT 2 puffs as needed Inhalation every 4 hrs for 30 days 09/11/2015 Not-Taking IMMUNIZATIONS Vaccine Route Administration Date Status Comme nts Flu Vaccine IM Intramuscular 07/27/2012 Administered PPSV23 (Pnemovax) IM Intramuscular 10/05/2012 Administered Prevnar 13 Unknown 12/30/2012 Administered Flu Vaccine Unknown 08/11/2013 Administered Flu Vaccine IM Intramuscular 10/17/2014 Administered zFluzone Quadrivalent IM Intramuscular 09/11/2015 Administered Flu Vaccine Unknown 12/04/2016 Administered Given while inpatient at [facility]. Fluarix Quadrivalent IM Intramuscular 07/23/2017 Administered PPSV23 (Pnemovax) IM Intramuscular 03/08/2018 Administered Influenza High Dose IM Intramuscular 08/31/2018 Administer ed Influenza High Dose IM Intramuscular 08/18/2019 Administer ed SARS-COV-2 Pfizer Unknown 12/18/2020 Administered SARS-COV-2 Pfizer Unknown 01/27/2021 Administered Influenza High Dose IM Intramuscular 08/27/2021 Administer ed SARS-COV-2 Pfizer Unknown 04/04/2021 Administered Influenza High Dose IM Intramuscular 08/14/2022 Administer ed Influenza High Dose IM Intramuscular 09/11/2023 Administer ed Influenza High Dose IM Intramuscular 08/12/2024 Administer ed SOCIAL HISTORY Sex Assigned At : Social History Observation Description Sex Assigned At Unknown PROBLEMS Problem Type ICD Code Onset Dates Problem Status W/U Status Risk SNOMED Code Notes Problem Thyroid nodule (E04.1) Active confirmed 524862582 Problem Paroxysmal atrial fibrillation (I48.0) Active confirmed 260670244 Problem Other chronic pain (G89.29) Active confirmed 00120771 Problem 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) Active confirmed 408092835 Problem Mild intermittent asthma without complication (J45.20) Active confirmed 872849838 Problem Chronic systolic congestive heart failure (I50.22) Active confirmed 708954814 Problem Nonrheumatic aortic valve stenosis (I35.0) Active confirmed 846271790 Problem Other iron deficiency anemia (D50.8) Active confirmed 60182924 Problem Cervical disc disease (M50.90) Active confirmed Cervical di sc disease (917633463) Problem Non-rheumatic mitral regurgitation (I34.0) Active confirmed 717432407 Problem Idiopathic peripheral neuropathy (G60.9) Active confirmed Idiopathic peripheral neuropathy (98985578) Problem Pulmonary hypertension (I27.20) Active confirmed 87726130 Problem Acute gout of right hand, unspecified cause (M10.9) Active confirmed Gout (47335809) VITAL SIGNS Blood pressure diastolic 76 mm Hg 08/12/2024 catherine ght is down 3 pounds since 06-27-24 Height 66 in 08/12/2024 weight is down 3 pounds since 06-27-24 Blood pressure systolic 122 mm Hg 08/12/2024 weig ht is down 3 pounds since 06-27-24 Weight 134 lbs 08/12/2024 weight is down 3 pounds since 06-27-24 BMI 21.63 kg/m2 08/12/2024 weight is down 3 pounds since 06-27-24 Encounters Encounter Location Date Provider Diagnosis Jerome Guido MD [address] [place] [id number] 12/11/2023 Jerome Guido MD [address] [place] [id number] 06/27/2024 Jerome Guido Chronic systolic congestive heart failure I50.22 ; Pain in right shoulder M25.511 ; Other chronic pain G89.29 and Weight loss R63.4 Jerome Guido MD [address] [place] [id number] 08/12/2024 Jerome Guido Pain in right shoulder M25.511 ; Other chronic pain G89.29 ; Paroxysmal atrial fibrillation I48.0 ; Encounter for immunization Z23 and Acute non-recurrent maxillary sinusitis J01.00 Jerome Guido MD [address] [place] [id number] 10/13/2024 Jermoe Guido MD [address] [place] [id number] 05/10/2024 Jerome Guido MD [address] [id number] 08/30/2024 Jerome Guido MD [address] [place] [id number] 09/06/2024 Jerome Guido ASSESSMENTS Encounter Date Diagnosis Assessment Notes Treatment Notes Treatment Clinical Notes 06/27/2024 Pain in right shoulder (ICD-10 - M25.511) referral to dr wan 06/27/2024 Chronic systolic congestive heart failure (ICD-10 - I50.22) has some worse breathing. need to refer her back to dr stuart 08/12/2024 Other chronic pain (ICD-10 - G89.29) 08/12/2024 Pain in right shoulder (ICD-10 - M25.511) is doing well after getting injections, 06/27/2024 Other chronic pain (ICD-10 - G89.29) 08/12/2024 Paroxysmal atrial fibrillation (ICD-10 - I48.0) doing well on xarelto, will contnue current regiment 06/27/2024 Weight loss (ICD-10 - R63.4) is seems it is mostly due to difficulty cooking because of walker 08/12/2024 Encounter for immunization (ICD-10 - Z23) flu vaccine admnistered 08/12/2024 Acute non-recurrent maxillary sinusitis (ICD-10 - J01.00) patient verbalized understanding of medication and directions for use PLAN OF TREATMENT Pending Test Test Name Order Date US THYROID 06/23/2019 Insurance Providers Payer Name Payer Address Payer Phone Subscriber Number Group Number Insured Name Patient Relationship to Insured Coverage Start Date Coverage End Date [employer] [address] [place] [address] [id number] Sophie Schulz Self - patient is the insured [facility] [address] [place] [phone] [id number] Sophie Schulz Self - patient is the insured MEDICAL (GENERAL) HISTORY Medical History History ICD Code [facility] [phone] cardio dante valadez. 01/27/14 no LPN PER DIEM & no mammos in years upper endo march 2018
== END ==
LOC: HO.CARD 12:49
PROVIDERS: PCP Internal Medicine; Visit Provider Internal Medicine Cardiovascular Disease
DX: Z95.4 Presence of other heart-valve replacement (principal)
CPT/HCPCS: 93306

== ENCOUNTER → 2024-10-24 12:53 | Outpatient (BNV) | payer MEDICARE, OTHER, SELFPAY | PROVIDERS: PCP Internal Medicine; Visit Provider Internal Medicine | DX: I36.1 Nonrheumatic tricuspid (valve) insufficiency (principal); I34.0 Nonrheumatic mitral (valve) insufficiency; I27.20 Pulmonary hypertension, unspecified; Z95.3 Presence of xenogenic heart valve; I37.1 Nonrheumatic pulmonary valve insufficiency | CPT/HCPCS: 93306 ==

== ENCOUNTER 2024-10-25 10:17 | Outpatient (AMB) | payer MEDICARE, OTHER, SELFPAY ==
--- NOTE | 2024-10-25 10:32 | A.OFFVIS_ITS ---
Vital Signs 10/25/24 10:38 Height 5 ft 3 in Weight 147 lb BMI 26.0 Intake Visit Reasons: Bilateral shoulder pains Intake Note: Sophie is a 78 year old female that presents with complaints of progressively worsening bilateral shoulder pains. She describes her pains as sharp in nature. She has had cortisone injections in the past which gave her fairly good relief. She has also done physical therapy exercises which aggravated her pain. She has tried Tylenol and anti-inflammatory minimal relief. Allergies latex Allergy (Mild, Verified 10/25/24 10:38) Redness of Skin seasonal Allergy (Mild, Uncoded 10/25/24 10:38) Itchy Eyes Medication List - Last Reconciled 10/25/24 by Wilton Ta MD acetaminophen 650 mg PO Q4H PRN albuterol sulfate 90 mcg/actuation 2 puffs PO Q4H PRN amiodarone 200 mg PO DAILY furosemide 40 mg See Protocol PO BID@0900,1800 montelukast 10 mg PO DAILY rivaroxaban 20 mg PO DAILY@1700 verapamil 160 mg (2 x 80 mg) PO BID PFSH Medical History (Updated 10/14/24 @ 14:13 by Wilton Ta MD) History of complete heart block History of blood transfusion History of GI bleed Personal history of COVID-19 Cervical disc disorder Hx of pulmonary embolus History of DVT (deep vein thrombosis) Anemia Asthma Non-rheumatic aortic stenosis Edema, peripheral Congestive heart failure Hypertrophic cardiomyopathy Pulmonary hypertension Obesity Paroxysmal atrial fibrillation Cardiac pacemaker in situ (~2013) CAD (coronary artery disease) Aortic stenosis (HFpEF) heart failure with preserved ejection fraction Surgical History History of cardiac cath History of heart surgery History of elbow surgery History of cardioversion History of permanent cardiac pacemaker placement Family History Father No problems noted. Mother CVD (cardiovascular disease) Social History Household Members: Children Household Members Other:: son Housing: House Are you a primary healthcare administration internship to a significant other at home: No Do you presently have visiting nurse or other home services: No Alcohol intake: current Alcohol intake frequency: holidays/special occasions only Alcohol type: wine Comment: Uses scooter Patient Tobacco Use Status: Former Tobacco user Tobacco use type: Cigarette Second Hand Smoke Exposure: No Advance Directives Date on File: 09/02/24 service: No Current occupational status: employed Physical Exam Vital Signs: BMI result Body Mass Index 26.0 Const Other: Well-nourished well-developed very friendly female awake alert and oriented x3 in no acute distress Extrem Other: Bilateral upper extremity examination shows good capillary refill, no skin lesions noted, normal sensation light touch Bilateral shoulder examination shows positive impingement signs, 4/5 strength with supraspinatus testing, no instability Office Procedures AMB Joint Injection/Aspiration Joint Injection/Aspiration Primary Site: left shoulder Prep: site was prepped using aseptic technique Injected: 40 mg of, DepoMedrol and 1% plain lidocaine Procedure: The patient tolerated the procedure well Coding 43768 - Large joint Procedure code (CPT) selection complete AMB Joint Injection/Aspiration Joint Injection/Aspiration Primary Site: right shoulder Prep: site was prepped using aseptic technique Injected: 40 mg of, DepoMedrol and 1% plain lidocaine Procedure: The patient tolerated the procedure well Coding 50852 - Large joint Procedure code (CPT) selection complete Assessment & Plan Assessment & Plan (1) Impingement syndrome of left shoulder: Code(s): M75.42 - Impingement syndrome of left shoulder Category: Medical (2) Impingement of right shoulder: Code(s): M25.811 - Other specified joint disorders, right shoulder Category: Medical Plan Ms. Schulz presents with bilateral shoulder pains due to impingement syndrome. The risks and benefits of bilateral shoulder cortisone injections were discussed at length with the patient. The patient wished to proceed. She tolerated the injections well. She will continue with her home stretching program. She will contact me prior to her follow-up appointment in 3 months should any questions or concerns arise. Feel free to call me at any time should questions regarding her orthopedic management arise. I spent 21 minutes in reviewing the patient's records and imaging studies, seeing the patient and documenting in the medical record. Orders: Orders XR shoulder LT min 2V Today M25.512 - Pain in left shoulder AMB Joint Injection/Aspiration Today M75.42 - Impingement syndrome of left shoulder XR shoulder RT min 2V Today M25.511 - Pain in right shoulder AMB Joint Injection/Aspiration Today M25.811 - Other specified joint disorders, right shoulder Coding Level of Care Code Est Pt Level 3 (93218) Complex EM visit Add On G2211 Diagnoses Impingement syndrome of left shoulder M75.42 Impingement of right shoulder M25.811 CPT Codes Coding - 12988 Large joint: 17057 - Large joint ([id number]) Coding - 11944 Large joint: 76859 - Large joint ([id number])
[2024-10-25 10:38] VITALS: BMI 26.0
== END 2024-10-25 11:06 | disposition home or self-care (01) ==
PROVIDERS: PCP Internal Medicine; Visit Provider Orthopaedic Surgery
DX: M75.42 Impingement syndrome of left shoulder (principal); M25.811 Other specified joint disorders, right shoulder
CPT/HCPCS: 20610; 99213

== ENCOUNTER 2024-10-25 10:17 | Outpatient (REF) | payer MEDICARE, OTHER, SELFPAY ==
--- NOTE | ~2024-10-25 | XR_ITS ---
EXAMINATION: XR SHOULDER, LEFT CLINICAL INFORMATION: M25.512 - Pain in left shoulder COMPARISON: None available. TECHNIQUE: 2 views of the left shoulder. FINDINGS: Acromioclavicular joint normal. Glenohumeral joint cannot assess given the projection. No dislocation. Incidental note made of a left-sided of pacer in place with partially visualized leads intact. TAVR noted. Mitral annular calcification noted. XR/XR shoulder LT min 2V IMPRESSION: 1. Acromioclavicular joint unremarkable 2. Limited assessment of the glenohumeral joint given the projection.. No dislocation Electronically signed by: Hardeep Madrigal MD 10/29/2024 07:17 AM JOSUE
--- OUTSIDE RECORDS SUMMARY | 2024-10-26 10:23 | XMS_ITS ---
Author Organization Jerome Guido MD Address [address] [place] [phone] Care Team Providers Care Machine Load Clerk Name Role Phone Jerome Guido Primary Care Provider [phone] ALLERGIES No Known Allergies REASON FOR VISIT 2 month Encounters Encounter Location Date Provider Diagnosis Jerome Guido MD [address] [place], [place] [phone] 10/13/2024 Jerome Guido PLAN OF TREATMENT No Information
--- OUTSIDE RECORDS SUMMARY | 2024-10-26 10:23 | XMS_ITS ---
Author Organization Jerome Guido MD Address [address] [place] [phone] Care Team Providers Care Fax Machine Repairer Name Role Phone Jerome Guido Primary Care Provider [phone] REASON FOR VISIT discharge Encounters Encounter Location Date Provider Diagnosis Jerome Guido MD [address] [place], [place] [phone] 09/06/2024 Jerome Guido PLAN OF TREATMENT No Information
--- OUTSIDE RECORDS SUMMARY | 2024-10-26 10:23 | XMS_ITS | Patient Health Record ---
Author Organization Jerome Guido MD Address [address] [place], [place] [phone] Care Team Providers Care Patient Accounts Specialist Name Role Phone Jreome Guido Primary Care Provider [phone] ALLERGIES No Known Allergies RESULTS Component Value Reference Range Notes Complete Blood Count no Diff Reviewed date:01/27/2024 04:59:07 PM Interpretation: Performing Lab:[facility], [address] [place] [phone] Notes/Report: White Blood Count 6.3 4.8-10.8 X10*3/uL [...] Panel Reviewed date:01/27/2024 04:53:59 PM Interpretation: Performing Lab:[address] [phone] Notes/Report: Bilirubin Total 0.7 0.0-1.0 mg/dL Bilirubin Direct 0.3 0.0-0.5 mg/dL Aspartate Amino Transferase 12 5-31 U/L Alanine Aminotransferase 7 0-31 U/L Total Protein 7.9 6.5-8.0 g/dL Albumin Level 3.8 3.5-5.0 g/dL Alkaline Phosphatase 148 39-117 U/L Basic Metabolic Panel Reviewed date:01/27/2024 04:58:12 PM Interpretation: Performing Lab:[address] [phone] Notes/Report: Sodium 145 135-145 mmol/L Potassium 4.5 3.3-5.1 mmol/L Chloride 112 96-108 mmol/L Carbon Dioxide 23 22-29 mmol/L Anion Gap 15 12-20 Blood Urea Nitrogen 25 9-16 mg/dL Creatinine 0.84 0.5-1.4 mg/dL Estimated Glomerular Filt Rate > 60 NOTE: For -Niuean individuals, multiply the result by 1.210. Chronic Kidney Disease: Estimated GFR < 60 mL/min/1.73m2 Severe Kidney Disease: Estimated GFR < 15 mL/min/1.73m2 Glucose Random 98 60-115 mg/dL Calcium 9.3 8.4-10.2 mg/dL TSH reflex Free T4 Reviewed date:01/27/2024 04:54:08 PM Interpretation: Performing Lab:[address] [address] Notes/Report: TSH reflex Free T4 1.85 0.32-4.0 uIU/mL XR chest 2V Reviewed date:02/02/2024 11:49:17 AM Interpretation: Performing Lab: Notes/Report: [address] [address] XRay Report Signed Patient: Sophie Schulz MR#: [id number] : 1945 Acct:[id number] Age/Sex: 78 / F ADM Date: 01/26/24 Loc: HO.LAB Attending Dr: Ankit Stuart MD Ordering Physician: Ankit Stuart MD Date of Service: 01/26/24 Procedure(s): XR chest 2V Accession Number(s): [id number] cc: Jerome Guido MD; Ankit Stuart MD [...] in OV> 02/02/24 0714 DD/ 1634 TD/TT: Material Stress Tester: XR chest 1V Reviewed date:09/03/2024 12:55:16 PM Interpretation: Performing Lab: Notes/Report: [address] [address] XRay Report Signed Patient: Sophie Schulz MR#: [id number] : 1945 Acct:[id number] Age/Sex: 78 / F ADM Date: 09/02/24 Loc: HO.ED Attending Dr: Ordering Physician: David Loredo MD Date of Service: 09/02/24 Procedure(s): XR chest 1V Accession Number(s): [id number] cc: Jerome Guido MD; David Loredo MD [...] OV> 09/02/24 0718 DD/ 1 TD/TT: 09/02/24631 Material Stress Tester: Zoltan Mustafa. Panel Reviewed date:09/04/2024 03:58:04 PM Interpretation: Performing Lab:[facility], [address] [place] [phone] Notes/Report: Sodium 143 135-145 mmol/L Potassium 4.6 [...] Estimated Glomerular Filt Rate 60 NOTE: For -Niuean individuals, multiply the result by 1.210. Chronic [...] Diff Reviewed date:09/04/2024 03:57:41 PM Interpretation: Performing Lab:[facility], [address] [place] [phone] Notes/Report: White Blood Count 5.4 4.8-10.8 X10*3/uL [...] Panel Reviewed date:09/04/2024 03:54:21 PM Interpretation: Performing Lab:[facility], [address] [place] [phone] Notes/Report: Sodium 142 135-145 mmol/L Potassium 4.1 [...] Glomerular Filt Rate > 60 NOTE: For -Niuean individuals, multiply the result by 1.210. Chronic [...] g Reviewed date:09/04/2024 03:54:55 PM Interpretation: Performing Lab:[facility], [address] [place] [phone] Notes/Report: Glucose Fasting 91 60-99 mg/dL Complete Blood Count no Diff Reviewed date:09/05/2024 06:19:20 PM Interpretation: Performing Lab:[facility], [address] [place] [phone] Notes/Report: White Blood Count 5.2 4.8-10.8 X10*3/uL [...] Panel Reviewed date:09/05/2024 12:57:43 PM Interpretation: Performing Lab:[facility], [address] [place] [phone] Notes/Report: Sodium 138 135-145 mmol/L Potassium 3.8 [...] Glomerular Filt Rate > 60 NOTE: For -Niuean individuals, multiply the result by 1.210. Chronic [...] g Reviewed date:09/05/2024 12:56:58 PM Interpretation: Performing Lab:[facility], [address] [place] [phone] Notes/Report: Glucose Fasting 94 60-99 mg/dL Magnesium Reviewed date:09/05/2024 12:32:33 PM Interpretation: Performing Lab:[facility], [address] [place] [phone] Notes/Report: Magnesium 2.0 1.6-2.6 mg/dL B Type Natriuretic Peptide Reviewed date:09/05/2024 12:37:33 PM Interpretation: Performing Lab:[facility], [address] [place] [phone] Notes/Report: B Type Natriuretic Peptide 339 <100 pg/mL For those patients who are being treated with Natrecor (nesiritide, recombinant BNP), BNP testing should be performed at least two hours post treatment in order to ensure that only endogenous levels of BNP are detected. Complete Blood Count no Diff Reviewed date:09/11/2024 01:56:32 PM Interpretation: Performing Lab:[facility], [address] [place] [phone] Notes/Report: White Blood Count 5.3 4.8-10.8 X10*3/uL [...] INR Reviewed date:09/11/2024 01:55:43 PM Interpretation: Performing Lab:[facility], [address] [place] [phone] Notes/Report: Prothrombin Time 19.0 10.9-12.4 SEC [employer]NATIONAL [...] Panel Reviewed date:09/11/2024 01:55:33 PM Interpretation: Performing Lab:[facility], [address] [place] [phone] Notes/Report: Sodium 145 135-145 mmol/L Potassium 4.5 3.3-5.1 mmol/L Chloride 109 96-108 mmol/L Carbon Dioxide 26 22-29 mmol/L Anion Gap 15 12-20 Blood Urea Nitrogen 28 9-16 mg/dL Creatinine 0.84 0.5-1.4 mg/dL Estimated Glomerular Filt Rate > 60 NOTE: For -Niuean individuals, multiply the result by 1.210. Chronic [...] Unknown 12/04/2016 Administered Given while inpatient at [facility]. 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) Active confirmed 095370924 Problem Mild intermittent asthma without complication (J45.20) Active confirmed 608464177 Problem Chronic systolic congestive heart failure (I50.22) Active confirmed 075525307 Problem Nonrheumatic aortic valve stenosis (I35.0) Active confirmed 246919064 Problem Other iron deficiency anemia (D50.8) Active confirmed 62507135 Problem Cervical disc disease (M50.90) Active confirmed Cervical di sc disease (735586734) Problem Non-rheumatic mitral regurgitation (I34.0) Active confirmed 702638456 Problem Idiopathic peripheral neuropathy (G60.9) Active confirmed Idiopathic peripheral neuropathy (25012894) Problem Pulmonary hypertension (I27.20) Active confirmed 31131010 Problem Acute gout of right hand, unspecified cause (M10.9) Active confirmed Gout (01425446) VITAL SIGNS Blood pressure diastolic 76 mm [...] Jerome Guido MD [address] [place] [id number] 12/11/2023 Jerome Guido MD [address] [place] [id number] 06/27/2024 Jerome Guido Chronic systolic congestive heart failure I50.22 ; Pain in right shoulder M25.511 ; Other chronic pain G89.29 and Weight loss R63.4 Jerome Guido MD [address] [place] [id number] 08/12/2024 Jerome Guido Pain in right shoulder M25.511 ; Other chronic pain G89.29 ; Paroxysmal atrial fibrillation I48.0 ; Encounter for immunization Z23 and Acute non-recurrent maxillary sinusitis J01.00 Jerome Guido MD [address] [place] [id number] 10/13/2024 Jerome Guido MD [address] [place] [id number] 05/10/2024 Jerome Guido MD [address] [id number] 08/30/2024 Jerome Guido MD [address] [place] [id number] 09/06/2024 Jerome Guido ASSESSMENTS Encounter Date Diagnosis [...] [employer] [address] [place] [address] [id number] Sophie Schulz Self - patient is the insured [facility] [address] [place] [phone] [id number] Sophie Schulz Self - patient is the insured MEDICAL (GENERAL) HISTORY Medical History History ICD Code rust [phone] cardio dante valadez. 01/27/14 no CABLE SPOOLER & no mammos in years upper endo march 2018
--- OUTSIDE RECORDS SUMMARY | 2024-10-26 10:23 | XMS_ITS ---
Author Organization Jerome Guido MD Address [address] [place] [phone] Care Team Providers Care Senior Hr Generalist Name Role Phone Jerome Guido Primary Care Provider REASON FOR VISIT FYI Encounters Encounter Location Date Provider Diagnosis Jerome Guido MD [address] [place], [place] [phone] 08/30/2024 Jerome Guido PLAN OF TREATMENT No Information
== END 2024-10-25 10:18 | disposition home or self-care (01) ==
LOC: HO.HOSX 10:17
PROVIDERS: Visit Provider Orthopaedic Surgery
DX: M25.512 Pain in left shoulder (principal); M25.511 Pain in right shoulder; M75.42 Impingement syndrome of left shoulder; M25.811 Other specified joint disorders, right shoulder
CPT/HCPCS: 20610; 73030; 99212; J1010; J2003

== ENCOUNTER 2024-11-15 09:24 | Outpatient (AMB) | payer MEDICARE, OTHER, SELFPAY ==
--- NOTE | 2024-11-15 09:26 | MHC.OFFVIS ---
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 She was hospitalized for about a week after. The significant difficulty in managing a blood pressure with labile blood pressure noted at that time. She was then released to a intermediate facility after where she was noted to have more controlled blood pressure. She is currently at home and occasionally notices orthostatic lightheadedness. She has no symptoms of orthopnea, PND but has weakness with walking and uses a walker to walk. However she says she feels significantly better compared to prior to her valve replacement. Her symptoms exertional chest pressure and shortness of breath have significantly improved. Echocardiogram post TAVR shows normally function bioprosthetic aortic valve however has [id number] perivalvular aortic regurgitation. LV ejection fraction is within normal limits. She does have severe pulmonary hypertension with moderate to severe tricuspid regurgitation. She has no leg swelling, orthopnea, PND. Takes all her medications. Has been taking oral anticoagulation will religiously. Also has been taking amiodarone religiously. No syncopal episodes. Comes today for evaluation and is noted to be in atrial fibrillation/flutter. [facility] Medical History (Updated 11/15/24 @ 10:31 by Ankit Stuart MD) Aortic stenosis Aortic stenosis, severe History of complete heart block History of blood transfusion History of GI bleed Personal history of COVID-19 Cervical disc disorder Hx of pulmonary embolus History of DVT (deep vein thrombosis) Anemia Asthma Non-rheumatic aortic stenosis Edema, peripheral Congestive heart failure Hypertrophic cardiomyopathy Pulmonary hypertension Obesity Paroxysmal atrial fibrillation Cardiac pacemaker in situ (~2013) CAD (coronary artery disease) (HFpEF) heart failure with preserved ejection fraction Surgical History (Updated 11/15/24 @ 10:30 by Ankit Stuart MD) Status post transcatheter aortic valve replacement History of cardiac cath History of heart surgery History of elbow surgery History of cardioversion History of permanent cardiac pacemaker placement Family History Father No problems noted. Mother CVD (cardiovascular disease) Social History Household Members: Children Household Members Other:: son Housing: House Are you a primary child care education coordinator to a significant other at home: No Do you presently have visiting nurse or other home services: No Alcohol intake: current Alcohol intake frequency: holidays/special occasions only Alcohol type: wine Comment: Uses scooter Patient Tobacco Use Status: Former Tobacco user Tobacco use type: Cigarette Second Hand Smoke Exposure: No Advance Directives Date on File: 09/02/24 service: No Current occupational status: employed Review of Systems Const Denies chills, Denies fatigue, Denies fever(s), Denies frequent falls, Denies weakness, Denies weight gain and Denies weight loss ENT Denies dizziness Card Denies chest pain, Denies leg edema, Denies lightheadedness, Denies palpitations, Denies dyspnea, Denies dyspnea on exertion, Denies orthopnea and Denies other (loss of consciousness) Resp Denies cough, Denies dyspnea and Denies dyspnea on exertion GI Denies hematochezia and Denies change in stool character Musc Denies abnormal gait, Denies muscle weakness, Denies numbness, Denies radiating pain into limb and Denies tingling Neuro Denies abnormal gait, Denies dizziness, Denies frequent falls, Denies numbness, Denies tingling and Denies weakness Endo Denies fatigue and Denies palpitations Physical Exam Vital Signs: Last Vital Signs Pulse 71 11/15/24 09:27 BP 120/78 11/15/24 09:27 BMI result Body Mass Index 24.2 Const General: cooperative, comfortable, alert and awake Nutritional Appearance: other (Frail elderly woman) Orientation/consciousness: patient oriented x3 Limitations: ambulation with walker Neck Neck: Yes trachea midline, Yes supple and Yes no JVD Resp Effort & Inspection: normal respiratory effort Auscultation: clear to auscultation bilaterally and diminished lung sounds Cardio Jugular venous distension: no JVD Rate: regular rate Rhythm: regular rhythm Heart sounds: S1 normal heart sound present, S2 normal heart sound present, no click, no gallops and Murmur heart sound present diastolic early Skin General skin exam: no rashes or lesions noted and ecchymosis Neuro General: patient oriented x3 and no focal motor deficits Extrem General: Yes no clubbing, cyanosis or edema Office Procedures Cardiac Device Check Cardiac Device Check Details: Dual-chamber Medtronic pacemaker in place. Noted to be in atrial fibrillation flutter since 10/07/2024. Programming mode was changed from DDDR to DDIR. Ventricular pacing thresholds were adequate and reprogrammed to provide adequate safety. Ventricular sensing was adequate. Pacing lead impedance is stable. Battery life is about 8 years [id number] Cardiac Device Check, pacemaker dual lead Procedure code (CPT) selection complete EKG Details: EKG shows ventricularly paced rhythm with underlying atrial flutter/fibrillation. [id number], Complete Assessment & Plan Assessment & Plan (1) Persistent atrial fibrillation: Code(s): I48.19 - Other persistent atrial fibrillation Category: Medical Plan: Persistent atrial fibrillation, started a week after her transcatheter aortic valve replacement. Probably related to the stress of the whole valve procedure and hospitalization. Remains when atrial flutter with fibrillation. Has symptoms of exertional fatigue. However these symptoms have improved. No overt signs of congestive heart failure at this point time. Discussed in the past she has done very well with rhythm control approach will pursue rhythm control approach which remains on amiodarone therapy and has significant left atrial enlargement and likelihood of success is lower in the long run although she has done well and will pursue synchronized cardioversion in the future. This was discussed with her. Continue Xarelto for oral anticoagulation. Quarterly renal function test should be pursued. Follow up in the clinic in 5 weeks time. (2) Labile blood pressure: Code(s): R09.89 - Other specified symptoms and signs involving the circulatory and respiratory systems Category: Medical Plan: Labile blood pressure which is not unexpected in somebody with diffuse vascular disease. This was discussed with her. She is having some orthostatic lightheadedness symptoms. Will pursue reduction dose of amlodipine and switch her to nighttime. Advise close follow-up blood pressure at home and maintain a log. Low-salt diet was discussed. Advise adequate hydration. Orthostatic precautions were discussed. (3) Status post transcatheter aortic valve replacement: Comment: Evolut, 29 mm bioprosthetic valve, September 2024 Code(s): Z95.2 - Presence of prosthetic heart valve Category: Medical Plan: Status post transcatheter aortic valve replacement with significant improvement in overall symptoms. Valve is working well. Continue aspirin for about 6 months. Continue full oral anticoagulation lifelong. SBE prophylaxis as per ACC/aha guidelines. Noted guep-ou-zqlavazj better valvular regurgitation. Follow-up echocardiogram in 6 months. She is currently doing physical therapy and rehabilitation home. Will refer for phase 2 cardiac rehabilitation once she is feeling stronger. (4) Cardiac pacemaker in situ: Onset Date: ~2013 Comment: (Medtronic DCPP - placed 2013, generator change 02/2022) Code(s): Z95.0 - Presence of cardiac pacemaker Category: Medical Plan: Cardiac pacemaker in-situ, working well. Reprogrammed for adequate function. Will follow remotely. Follow up in the clinic in 5 weeks time. (5) CAD (coronary artery disease): Comment: Cardiac catheterization pre TAVR showed 60% disease in LAD, 40-50% disease in circumflex and 90% disease at the ostium of the RPL Code(s): I25.10 - Atherosclerotic heart disease of [place] coronary artery without angina pectoris Category: Medical Plan: Diffuse CAD but no need for any intervention at this point time. Continue aggressive risk factor modification. Currently on dual therapy with aspirin and Xarelto. Aspirin will be eventually stopped. Consider high-intensity statin therapy. Target goal LDL less than 70 mg/dL. (6) (HFpEF) heart failure with preserved ejection fraction: Code(s): I50.30 - Unspecified diastolic (congestive) heart failure Category: Medical Plan: Heart failure preserved ejection fraction, clinically euvolemic and well compensated current diuretic dose. Daily weight monitoring avoidance salt loading was discussed. Continue aggressive blood pressure control. Continue rhythm control approach as above which has helped her. Will pursue the same. Once better will consider also Jardiance therapy. Follow up in 5 weeks time. Has multiple comorbidities including frailty, atrial fibrillation, advancing age, severe tricuspid regurgitation as well as severely elevated right ventricular systolic pressure. Overall prognosis guarded. Goals of therapy were discussed. (7) Hypertrophic cardiomyopathy: Comment: Status post alcohol septal ablation Code(s): I42.2 - Other hypertrophic cardiomyopathy Category: Medical Plan: Hypertrophic cardiomyopathy with alcohol septal ablation in the past. Currently doing well clinically. Greater than 40 minutes was spent in overall managing her care. Medications: New amlodipine 5 mg PO QPM Ankit Stuart MD Changed From furosemide 40 mg See Protocol PO BID@0900,1800 180 tabs 0RF To furosemide 40 mg See Protocol PO ONCE Fidel Marrero MD Coding Level of Care Code Est Pt Level 5 (28057) Complex EM visit Add On G2211 Diagnoses Persistent atrial fibrillation I48.19 Labile blood pressure R09.89 Status post transcatheter aortic valve replacement Z95.2 Cardiac pacemaker in situ Z95.0 CAD (coronary artery disease) I25.10 (HFpEF) heart failure with preserved ejection fraction I50.30 Hypertrophic cardiomyopathy I42.2 CPT Codes Cardiac Device Check - Cardiac Device 2: 36025-TW Cardiac Device Check, pacemaker dual lead ([id number]) EKG - CPT: 24831-Gebfqwsiqapqqhydi, Complete ([id number])
[2024-11-15 09:27] VITALS: BP 120/78; PULSE 71; BMI 24.2
--- OUTSIDE RECORDS SUMMARY | 2024-11-15 09:37 | XMS_ITS | Continuity of Care Document ---
Author Organization [facility] ter Address [address] [place] [address]- Care Team Providers Care Organic Section Technical Lead Name Role Phone Jerome Guido MD Primary Care Physician [phone] Encounter [facility] Date(s): 10/05/24 - 11/04/[address] [address]- Attending Physician: Not on Staff, Attending MD Admitting Physician: Not on Staff, Admitting MD Referring Physician: Not on Staff, Referring MD Encounter Type: Pre-Outpt Allergies, Adverse Reactions, Alerts Substance Criticality Severity [...] 4:10:00 PM EST, Route to Pharmacy Electronically, [facility], Partial fill upon patient request if [...] 9:50:00 AM EST, Route to Pharmacy Electronically, [facility], Partial fill upon patient request if [...] Reference Physician Member Role: PCP Address: [address] [place] [address] [place] [address]- Telecom: [phone] Name: Philip Obrien RN Position: S RN Member Role: Primary Care Nurse Name: Harshal Harrison RN Position: S RN Member Role: Primary Care Nurse Name: Sarah Hand RN Position: S RN Member Role: Primary Care Nurse Care Team Related Persons Name: HOMER VIDAL Insurance Providers Guarantor name: MILIND VIDAL Health Plan Information #: 1 Payer: MEDICARE PART B OUTPT Member Number: NA Policy Number: NA Group Number: NA
--- OUTSIDE RECORDS SUMMARY | 2024-11-15 09:37 | XMS_ITS | Continuity of Care Document ---
Author Organization [facility] [address] [address]- Care Team Providers Care Kidney Puller Name Role Phone Lata ORTIZ, Jerome Primary Care Physician [phone] Encounter [facility] Date(s): 10/11/24 - 11/10/24 [facility] [address] [place] [address] Drive [address] [place], [place] [address] Encounter Type: Triage Allergies, Adverse Reactions, Alerts [...] 4:10:00 PM EST, Route to Pharmacy Electronically, [facility], Partial fill upon patient request [...] 9:50:00 AM EST, Route to Pharmacy Electronically, [facility], Partial fill upon patient request [...] Position: Reference Physician Member Role: PCP Address: [address] [place] [address] [place] [address]- Telecom: [phone] Name: Philip Obrien RN Position: S RN [...] NA Health Plan Information #: 2 Payer: [facility] Member Number: NA Policy Number: NA Group Number: [id number]
== END 2024-11-15 10:23 | disposition home or self-care (01) ==
PROVIDERS: PCP Internal Medicine; Visit Provider Internal Medicine Cardiovascular Disease
DX: I48.19 Other persistent atrial fibrillation (principal); R09.89 Other specified symptoms and signs involving the circulatory and respiratory systems; Z95.2 Presence of prosthetic heart valve; Z95.0 Presence of cardiac pacemaker; I25.10 Atherosclerotic heart disease of native coronary artery without angina pectoris; I50.30 Unspecified diastolic (congestive) heart failure; I42.2 Other hypertrophic cardiomyopathy; R94.31 Abnormal electrocardiogram [ECG] [EKG]
CPT/HCPCS: 93010; 93280; 99215; G2211

== ENCOUNTER → 2024-11-15 09:24 | Outpatient (BNVA) | payer MEDICARE, OTHER, SELFPAY | PROVIDERS: PCP Internal Medicine; Visit Provider Internal Medicine Cardiovascular Disease | DX: Z45.018 Encounter for adjustment and management of other part of cardiac pacemaker (principal); I48.19 Other persistent atrial fibrillation; I25.10 Atherosclerotic heart disease of native coronary artery without angina pectoris; I50.30 Unspecified diastolic (congestive) heart failure; I42.2 Other hypertrophic cardiomyopathy; R09.89 Other specified symptoms and signs involving the circulatory and respiratory systems; I51.7 Cardiomegaly; R94.31 Abnormal electrocardiogram [ECG] [EKG]; Z95.2 Presence of prosthetic heart valve | CPT/HCPCS: 93005; 93280; 99212 ==

== ENCOUNTER 2024-11-23 12:36 | Day surgery (SDC) | payer MEDICARE, OTHER, SELFPAY ==
[2024-11-23 13:49] VITALS: BP 157/78; PULSE 71; RESP 16; TEMP 37.2; O2SAT 97; BMI 20.5
--- NOTE | 2024-11-23 13:56 | HO.ANESPROP2 ---
[facility] Active Problems Active Problems: All Active Problems Labile blood pressure (Acute) Persistent atrial fibrillation (Acute) Status post transcatheter aortic valve replacement (Acute) Left shoulder pain (Acute) Thyroid nodule (Acute) Tricuspid regurgitation (Acute) Bilateral pleural effusion (Acute) Impingement of right shoulder (Acute) Impingement syndrome of left shoulder (Acute) Physical deconditioning (Acute) Right shoulder pain (Acute) COVID-19 (Acute) Hypertrophic cardiomyopathy (Acute) Cardiac pacemaker in situ (Acute ~2013) Paroxysmal atrial fibrillation (Acute) CAD (coronary artery disease) (Acute) (HFpEF) heart failure with preserved ejection fraction (Acute) Obesity (Acute) Past Medical History Medical History Aortic stenosis Aortic stenosis, severe History of complete heart block History of blood transfusion History of GI bleed Personal history of COVID-19 Cervical disc disorder Hx of pulmonary embolus History of DVT (deep vein thrombosis) Anemia Asthma Non-rheumatic aortic stenosis Edema, peripheral Congestive heart failure Hypertrophic cardiomyopathy Pulmonary hypertension Obesity Paroxysmal atrial fibrillation Cardiac pacemaker in situ (~2013) CAD (coronary artery disease) (HFpEF) heart failure with preserved ejection fraction Functional capacity: independent ambulation Patient : No Family History Family History Father No problems noted. Mother CVD (cardiovascular disease) Family history of problems with anesthesia: No Surgical History Surgical History Status post transcatheter aortic valve replacement History of cardiac cath History of heart surgery History of elbow surgery History of cardioversion History of permanent cardiac pacemaker placement History of Problems with Anesthesia: No Social History Social History Household Members: Children Household Members Other:: son Housing: House Are you a primary pet care attendant to a significant other at home: No Do you presently have visiting nurse or other home services: No Alcohol intake: current Alcohol intake frequency: holidays/special occasions only Alcohol type: wine Comment: Uses scooter Patient Tobacco Use Status: Former Tobacco user Tobacco use type: Cigarette Smoked in Last 30 Days: No Second Hand Smoke Exposure: No Use of substances other than those prescribed or required for medical reasons: No Have you been hit, kicked, punched, or otherwise hurt by someone within the past year? If so, by whom?: No Are you DNR?: No Advance Directives: No Advance Directives Information Provided: Yes (Son Michael (per patient)) Advance Directives on File: No (NOT ON FILE) Advance Directives Date on File: 09/02/24 Recently lost weight without trying: Yes How much weight loss: 14-23 pounds Eating poorly because of decreased appetite: Yes Nutrition screen score: 5 Patient : No : No Poor oral hygiene: Yes (upper partial, loose teeth throughout) service: No Current occupational status: employed Meds Allergies Allergy/AdvReac Type Severity Reaction Status Date / Time latex Allergy Mild Redness of Verified 11/23/24 13:31 Skin seasonal Allergy Mild Itchy Eyes Uncoded 11/23/24 13:31 Home Medications ?Medication ?Instructions ?Recorded ?Confirmed ?Last Taken ?Type albuterol sulfate 90 mcg/actuation 2 puff PO Q4H PRN Shortness Of 12/17/20 11/23/24 Unknown History aerosol inhaler Breath montelukast 10 mg tablet 10 mg PO DAILY 12/17/20 11/23/24 11/23/24 History rivaroxaban 20 mg tablet 20 mg PO DAILY@1700 12/17/20 11/23/24 11/22/24 History acetaminophen 325 mg tablet 650 mg PO Q4H PRN Pain 09/02/24 11/23/24 Unknown History amlodipine 10 mg tablet 5 mg PO QPM 11/15/24 11/23/24 11/22/24 History aspirin 81 mg tablet,delayed 81 mg PO DAILY 11/15/24 11/23/24 Unknown History release (Adult Aspirin Regimen) furosemide 40 mg tablet 40 mg PO ONCE 11/15/24 11/23/24 11/22/24 History Exam Height,Weight and Vital Signs: Height 5 ft 8 in Weight 61.235 kg Last Vital Signs Temp 98.9 F 11/23/24 13:49 Pulse 71 11/23/24 13:49 Resp 16 11/23/24 13:49 BP 157/78 H 11/23/24 13:49 Pulse Ox 97 11/23/24 13:49 O2 Del Method Room Air 11/23/24 13:49 Airway Mallampati Class: II TM Dist: >3cm Neck ROM: Full Denture: Upper and Lower Heart: Paced Lungs: CTA Assessment and Plan Assessment Anesthesia Assessment: Anesthesia Plan Discussed and Chart Reviewed Final Anesthetic Review Family History of Problems with Anesthesia: No History of Problems with Anesthesia: No NPO: Yes ASA Class: III and Emergency Final Preanesthetic Review: Meds/Allgs Chart Reviewed, Consent Obtained/Reviewed and Anes Risks/Benef Reviewed Patient Risk: High Procedure Risk: Intermediate Anesthetic Plan Anesthetic Plan: GA Disposition: Standard PACU
--- NOTE | 2024-11-23 14:11 | MHC.SHP ---
Pre-Procedural Eval Section A - 24 Hr Update-Section A only Date of Service: 11/23/24 The patient is an INPATIENT: No Changes since office visit: Yes Patient answered all questions; No Cold of Flu in the past 2 weeks, No New Medical Problems and No Changes in Medication The patient has been examined within 24 hours of the surgical procedure. The History & Physical has been completed within 30 days and I have reviewed it.: Yes Section B - Complete if H&P > 30 days Chief Complaint: Other persistent atrial fibrillation Allergies: Allergies Allergy/AdvReac Type Severity Reaction Status Date / Time latex Allergy Mild Redness of Verified 11/23/24 13:31 Skin seasonal Allergy Mild Itchy Eyes Uncoded 11/23/24 13:31 Plan I have reviewed the history and physical and performed a pertinent physical examination on my patient. No changes have occurred unless specified. Time Spent With Patient Time: Total time managing care of this patient today ____ minutes.
--- OUTSIDE RECORDS SUMMARY | 2024-11-23 14:54 | XMS_ITS | Continuity of Care Document ---
Author Organization [facility] Address [address] [place] [address]- Care Team Providers Care Grid Trimmer Name Role Phone Lata ORTIZ, Jerome Primary Care Physician [phone] [place] [facility] [place]): [place] 11/18/24 [facility] [address] [place] [address]- Encounter Diagnosis S/p TAVR (transcatheter aortic valve replacement), bioprosthetic(Discharge Diagnosis) - 10/17/24 Atrial fibrillation(Discharge Diagnosis) - 10/17/24 HOCM (hypertrophic obstructive cardiomyopathy)(Discharge Diagnosis) - 10/17/24 Pacemaker(Discharge Diagnosis) - 10/17/24 Diastolic heart failure(Discharge Diagnosis) - 10/17/24 Attending Physician: Santiago ORTIZ, Ashgalileo Admitting Physician: Santiago ORTIZ, Ashequl Referring Physician: Sade ORTIZ, Ankit Palacios Encounter Type: Pre-OutPatient One Time Allergies, Adverse Reactions, Alerts Substance Criticality Severity [...] 4:10:00 PM EST, Route to Pharmacy Electronically, [facility], Partial fill upon patient request [...] 9:50:00 AM EST, Route to Pharmacy Electronically, [facility], Partial fill upon patient request [...] cardiomyopathy) Confirmed Active Pulmonary hypertension Confirmed Active Diagnosis Diagnosis Type Effective Dates Health Status Clinical Service Informant S/p TAVR (transcatheter aortic valve replacement), bioprosthetic Discharge Diagnosis 10/17/24 Atrial fibrillation Discharge Diagnosis 10/17/24 HOCM (hypertrophic obstructive cardiomyopathy) Discharge Diagnosis 10/17/24 Pacemaker Discharge Diagnosis 10/17/24 Diastolic heart failure Discharge Diagnosis 10/17/24 Social History Social History Type Response Smoking Status Former smoker entered on: 03/19/18 Sex Sex Representation Female (finding) Cardiology Outpatient Note * Ananda FUNES, Solitario Lange: PERFORM, MODIFY, MODIFY, MODIFY Event Display: Cardiology Note Office Authored Date: [id number] Patient: ??TYNAN, SOPHIE ? Age:??78 Years?Sex:??Female?:??1945?? Indication for Consult 60??day s/p TAVR History of Present Illness/Interval History ?? Sophie is a 78-year-old female with past medical history for chronic diastolic heart failure, atrial fibrillation, hypertrophic cardiomyopathy status post successful alcohol septal ablation about 10 years ago, permanent pacemaker, who was recently evaluated in the setting of progressive severe arctic stenosis with coinciding progressive dyspnea on exertion.?? Patient was evaluated by Dr. Henderson earlier this year and at that time echocardiogram demonstrated preserved EF 65 to 70%, evidence of severe aortic stenosis and mild to moderate aortic regurgitation peak and mean gradients across aortic valve wire 74 and 30 mmHg respectively and valve area 0.93 cm??.?? Patient was suitable candidate for TAVR and proceeded to have this done on [address] Henderson.?? Repeat EKG demonstrated paced rhythm, postoperative echocardiogram demonstrated preserved EF 65 to 70%, normally functioning aortic valve with mean gradient 7 mmHg with mild to moderate paravalvular leak no significant pericardial effusion.?? Patient was continued on amiodarone, amlodipine, and presents today for further follow-up. ?? Sophie is a pleasant 78-year-old female presents today with her son.?? Patient states since discharge her breathing is much improved in regards to since the valve procedure.?? Patient denies any chest pain, dizziness, lightheadedness, lower extremity swelling, PND, orthopnea.?? Patient does have residual shortness of breath still that has been ongoing for quite some time and she is not quite sure as to what it is and knows that it probably is multifactorial.?? I did emphasize that her echocardiogram report was not fully sent to me before I can see them but valve was functioning normally.?? Patient's weight has remained steady at home and continues on Lasix 40 mg daily.?? Patient has a follow-up with her general signal maintainer next week and I did state that if she wants to discuss decreasing this with him she can at that visit as she asked me this today in office. In regards to her lingering shortness of breath I did state sometimes it does take time and the echocardiogram pulmonary can see does not look reassuring and it could be multifactorial in the setting of her coronary disease, hypertrophic obstructive cardiomyopathy, anemia and asthma and I did recommend cardiac rehab to try to get an exercise tolerance increase.?? I emphasized the importance of aspirin daily as she had not been taking this and was recommended to do this secondary to her recent TAVR.?? Patient is already in possession of dental antibiotics.?? Patient emphasized to wait at least 6 months post TAVR to do any routine dental work.?? Patient will complete postoperative blood work and I will follow-up based off these results.?? Patient will follow- up with myself in 10 to 11 months for 1 year post TAVR follow-up with repeat preceding echocardiogram at that time. ?? Results Review: KCQ-12: 16 prior, post 16 ECG: Ventricular paced rhythm 30 day echo: Pending: ef 65-70%, normally functioning bioprosthetic valve with mild to early moderate perivalvular regurgitation (full report not available) Review of Systems PERTINENT POSITIVES MENTIONED ABOVE Physical Exam Vitals & Measurements Weight lb/oz: 133 lb 13 oz weight 62.3 o2 98 hr 72 bp 124/76 CONST:??Appears stated age, no acute distress, alert and oriented X 3, well- nourished _ NECK:??No evidence of JVD or HJR. Carotid impulses and upstroke normal bilaterally, no carotid bruits?? CV:??Regular rhythm, normal s1 and s2, 2/6 caroline .No aortic pulsation or aortic bruits. RESP:??Normal respiratory effort,??clear to auscultation, no use of accessory muscles, no crackles or wheezes.?? GI:??Soft, non-tender and non-distended, no hepatosplenomegaly, bowels sounds normoactive, no abdominal bruits EXT: No edema, cyanosis or clubbing?? NEURO:?Alert and oriented x 3, CN 2-12 grossly intact?? Assessment/Plan 1.??S/p TAVR (transcatheter aortic valve replacement), bioprosthetic Overall improved symptoms, still residual RODRIGUEZ 30 day echo: full report unable to see- will inquire dental ABX already in possession of, postoperative blood work to be reviewed, cardiac rehab recommended, asa indefinitely 2.??Atrial fibrillation rate controlled, no acute symptoms continues amiodarone,??xarelto?? 3.??HOCM (hypertrophic obstructive cardiomyopathy) repeat echo pending 4.??Pacemaker continues device interrogations 5.??Diastolic heart failure No evidence of worsening HF on exam continues lasix follow up with 10-11 months for 1 year s/p TAVR Total Time Spent I personally spent a total of 30 _ minutes, including both yazf-lv-nubu and hmd-sqpj-ln-face time on the date of the encounter, addressing the above diagnoses. Problem List/Past Medical History Ongoing Asthma Atrial fibrillation HOCM (hypertrophic obstructive cardiomyopathy) Pacemaker Pulmonary hypertension Procedure/Surgical History No qualifying data available. Home Medications amiodarone 200 mg oral tablet amLODIPine 10 mg oral tablet, 10 mg= 1 tablet, By Mouth, Daily aspirin 81 mg oral delayed release tablet, 81 mg= 1 tablet, By Mouth, Daily CBC, BMP in 1 week, See Instructions CBC, BMP in 1 week, See Instructions furosemide 40 mg oral tablet, 40 mg= 1 tablet, By Mouth, Daily montelukast 10 mg oral tablet, 10 mg= 1 tablet, By Mouth, Daily in PM Ventolin HFA 108 mcg/inh inhalation aerosol with adapter, 2 puffs, Inhalation, Every 6 hours, PRN Xarelto 20 mg oral tablet, 20 mg= 1 tablet, By Mouth, Daily in PM Lab Results Cardiology Labs WBC: 4.6 k/mm3 (10/11/24) RBC:??3.22 m/mm3??Low (10/11/24) Hgb:??8.3 Gm/dL??Low (10/11/24) Hct:??27.6 %??Low (10/11/24) MCV: 85.7 femtoliters (10/11/24) MCH:??25.8 pg??Low (10/11/24) MCHC:??30.1 Gm/dL??Low (10/11/24) Platelet Count: 297 k/mm3 (10/11/24) RDW-SD:??47.4 femtoliters??High (10/11/24) Nucleated RBC (Automated): 0 #/100 WBC'S (10/11/24) Abs. Neut: 3.4 k/mm3 (10/11/24) Abs. Lymph:??0.6 k/mm3??Low (10/11/24) Abs. Imperial: 0.5 k/mm3 (10/11/24) Abs. Eo: 0.1 k/mm3 (10/11/24) Abs. Baso: 0.1 k/mm3 (10/11/24) Neut %: 72.8 % (10/11/24) Imperial %:??10.6 %??High (10/11/24) Eos %: 1.9 % (10/11/24) Baso %: 1.3 % (10/11/24) Imm Gran: 0.6 % (10/11/24) Abs. Imm Gran: 0 k/mm3 (10/11/24) Sodium: 140 mmol/L (10/11/24) Potassium: 4.7 mmol/L (10/11/24) Chloride: 105 mmol/L (10/11/24) Bicarbonate Level: 24 mmol/L (10/11/24) Glucose Level:??114 mg/dL??High (09/28/24) BUN:??33 mg/dL??High (10/11/24) BUN: 22 mg/dL (09/28/24) Creatinine-Blood:??1.03 mg/dL??High (10/11/24) Calcium: 8.8 mg/dL (09/28/24) Diagnostic Impression CT [...] message (Yellow) has been communicated via the [email or web address] system on 09/16/2024 3:23 PM, Message ID [id number]. WSN: [id number] ? Ordering Physician: Eduardo Humphries ?? Signed [...] message (Yellow) has been communicated via the [email or web address] system on 09/16/2024 3:23 PM, Message ID [id number]. WSN: [id number] ? Ordering Physician: Eduardo Humphries ?? Signed By: Dax Bridges MD ECG ECG 12-Lead ?? 19:38:12 Please click on pdf link to open report ?? Signed By: Hemanth Freeman MD ?? ECG 12-Lead ?? 19:38:12 Ventricular Rate: 70 BPM Atrial Rate: 70 BPM QRS Duration: 220 ms Q-T Interval: 546 ms QTC Calculation(Bazett): 589 ms R Challis: -81 degrees T Challis: 99 degrees AV dual-paced rhythm Abnormal ECG When compared with ECG of 05-Oct-2024 19:37, No significant change Confirmed by Hemanth Freeman ([id number]) on 10/07/2024 10:03:20 AM ?? Vader: Hemanth Freeman ?? Signed By: Pete ORTIZ, Hemanth Guevara Echo Echocardiogram - Complete ?? 11:05:49 Summary [...] Signatures ?? Signed By: Yandel ORTIZ, Eduardo Malave NP, Solitario Lange: PERFORM Event Display: Cardiology Note Office Authored Date: 30 day echo without significant changes mean gradient 7 mm hg, pres ef, mild mod pvl similar to prior Patient Care team information Care Team Personnel Name: Jerome Guido MD Position: Reference Physician Member Role: PCP Address: [address] [place] [address] Jerome Guido MD [place], [place] [address] Telecom: [phone] Name: Philip Obrien RN Position: S RN Member Role: Primary Care Nurse Name: Harshal Harrison RN Position: S RN Member Role: Primary Care Nurse Name: Sarah Hand RN Position: S RN Member Role: Primary Care Nurse Care Team Related Persons Name: HOMER VIDAL Insurance Providers Guarantor name: SOPHIE MARCY Health Plan Information #: 2 Payer: [facility] Member Number: [id number] Policy Number: NA Group Number: [id number] Health Plan Information #: 1 Payer: MEDICARE PART B OUTPT Member Number: [id number] Policy Number: NA Group Number: NA
--- OUTSIDE RECORDS SUMMARY | 2024-11-23 14:55 | XMS_ITS | Continuity of Care Document ---
Author Organization [facility] Address [address] [place] [address]- Care Team Providers Care Warehouse Associate Driver Name Role Phone Jerome Guido MD Primary Care Physician [phone] Encounter [facility] Date(s): 10/18/24 - 11/17/24 [facility] [address] [place] [address] Encounter Type: Triage Allergies, Adverse Reactions, Alerts [...] 4:10:00 PM EST, Route to Pharmacy Electronically, [facility], Partial fill upon patient [...] 9:50:00 AM EST, Route to Pharmacy Electronically, [facility], Partial fill upon patient [...] Position: Reference Physician Member Role: PCP Address: [address] [place] [address] Jerome Guido MD [address] Telecom: [phone] Name: Philip Obrien RN Position: S RN Member Role: Primary Care Nurse Name: Harshal Harrison RN Position: S RN Member Role: Primary Care Nurse Name: Sarah Hand RN Position: S RN Member Role: Primary Care Nurse Care Team Related Persons Name: MARCY HOMER Insurance Providers Guarantor name: MILIND VIDAL Health Plan Information #: 1 Payer: MEDICARE PART B OUTPT Member Number: NA Policy Number: NA Group Number: NA Health Plan Information #: 2 Payer: [facility] [employer] Member Number: NA Policy Number: NA Group Number: NA
[2024-11-23 15:01] VITALS: BP 129/68; PULSE 70; RESP 16; TEMP 36.7; O2SAT 98
--- NOTE | 2024-11-23 15:02 | ECG_ITS ---
Test Reason : pacu Blood Pressure : */* mmHG Vent. Rate : 70 BPM Atrial Rate : 70 BPM P-R Int : 172 ms QRS Dur : 234 ms QT Int : 586 ms P-R-T Axes : * -80 101 degrees QTcB Int : 632 ms AV dual-paced rhythm Abnormal ECG When compared with ECG of 02-Sep-2024 06:09, Vent. rate has decreased by 52 bpm Referred By: Ankit Stuart Electronically Signed By: Eduardo Humphries
[2024-11-23 15:06] VITALS: BP 122/66; PULSE 84; RESP 20; O2SAT 96
[2024-11-23 15:25] VITALS: BP 151/71; PULSE 70; RESP 18; TEMP 36.3; O2SAT 96
--- NOTE | 2024-11-24 09:05 | HO.CARDIVERS ---
Cardioversion Procedure Note Cardioversion Date of Procedure: 11/23/2024 Ordering Provider: Dr. Stuart Performing Provider: Dr. Stuart Indication for Procedure: Recent onset persistent atrial fibrillation amiodarone therapy with prior history of heart failure with atrial fibrillation. Pre-Op Diagnosis: Same Post-Op Diagnosis: AV paced rhythm Performed with Transesophageal Echo: No History: See my office note Consent: Verbal and Written consent was obtained from the patient before starting and confirming oral anticoagulation use. Pacemaker was interrogated and confirmed that patient was in atrial fibrillation. The patient was made aware of the risk of synchronized cardioversion including benefits and alternatives Procedure: After consent obtained, cardioversion pads were attached in anteroposterior configuration and the patient was sedated by the anesthesia team. Once adequate sedation achieved, patient was delivered 200 joules of biphasic synchronized energy in anteroposterior configuration. Patient converted to atrial paced rhythm. Medtronic pacemaker was reprogrammed from DDDR to DDDR Complications: None Impression: Successful achievement of AV synchrony Recommendations: 1. 12 lead EKG 2. Continue amiodarone and oral anticoagulation use 3. Follow up in the clinic in 4 weeks time
== END 2024-11-23 15:43 | disposition home or self-care (01) ==
PROVIDERS: PCP Internal Medicine; Visit Provider Internal Medicine Cardiovascular Disease
PROC: 5A2204Z Restoration of Cardiac Rhythm, Single (ICD-10-PCS; principal; 2024-11-23 14:30)
DX: I48.19 Other persistent atrial fibrillation (principal); I50.30 Unspecified diastolic (congestive) heart failure; I35.0 Nonrheumatic aortic (valve) stenosis; I25.10 Atherosclerotic heart disease of native coronary artery without angina pectoris; I42.2 Other hypertrophic cardiomyopathy; I27.20 Pulmonary hypertension, unspecified; Z95.2 Presence of prosthetic heart valve; Z95.0 Presence of cardiac pacemaker; D64.9 Anemia, unspecified; J45.909 Unspecified asthma, uncomplicated; Z86.711 Personal history of pulmonary embolism; Z86.718 Personal history of other venous thrombosis and embolism; Z79.01 Long term (current) use of anticoagulants; Z91.040 Latex allergy status
CPT/HCPCS: 92960; 93005; J2003; J2704

== ENCOUNTER → 2024-11-23 12:36 | Outpatient (BNV) | payer MEDICARE, OTHER, SELFPAY | PROVIDERS: PCP Internal Medicine; Visit Provider Internal Medicine Cardiovascular Disease | DX: R94.31 Abnormal electrocardiogram [ECG] [EKG] (principal) | CPT/HCPCS: 93010 ==

== ENCOUNTER 2024-12-19 14:49 | Outpatient (AMB) | payer MEDICARE, OTHER, SELFPAY ==
[2024-12-19 14:57] VITALS: BP 110/70; PULSE 71; BMI 22.8
--- NOTE | 2024-12-19 14:57 | MHC.OFFVIS ---
Vital Signs 12/19/24 14:57 Height 5 ft 8 in Weight 149 lb 14.629 oz BMI 22.8 BP 110/70 Blood Pressure Location Lt brachial Position Sitting Pulse 71 Intake Visit Reasons: 4-6 wk follow up/cardioversion Intake Note: Follow-up post cardioversion with Medtronic and ekg c/o back in afib Senior Occupational Therapist Required: No Allergies latex Allergy (Mild, Verified 11/23/24 13:31) Redness of Skin seasonal Allergy (Mild, Uncoded 11/23/24 13:31) Itchy Eyes Medication List - Last Reconciled 12/19/24 by Ankit Stuart MD acetaminophen 650 mg PO Q4H PRN albuterol sulfate 90 mcg/actuation 2 puffs PO Q4H PRN amiodarone 200 mg PO DAILY amlodipine 5 mg (1/2 x 10 mg) PO QPM aspirin (Adult Aspirin Regimen) 81 mg PO DAILY furosemide 40 mg See Protocol PO ONCE montelukast 10 mg PO DAILY rivaroxaban 20 mg PO DAILY@1700 HPI Comments Details: 2D comes for follow-up after recent cardioversion. She then complain of recurrent shortness of breath. We did a pacer transmission which showed that she was in recurrent atrial flutter/fibrillation, AV synchrony lasted for very short period of time. Said he with exertional she does get very short of breath. She was not notice any orthopnea, PND, weight gain, leg swelling, abdominal distension. Denies any lightheadedness, syncope. She says a blood pressure currently is well optimized on current dose of amlodipine. No bleeding issues or neurologic events. She was elected to follow-up with electrophysiology at [facility] Medical History Aortic stenosis Aortic stenosis, severe History of complete heart block History of blood transfusion History of GI bleed Personal history of COVID-19 Cervical disc disorder Hx of pulmonary embolus History of DVT (deep vein thrombosis) Anemia Asthma Non-rheumatic aortic stenosis Edema, peripheral Congestive heart failure Hypertrophic cardiomyopathy Pulmonary hypertension Obesity Paroxysmal atrial fibrillation Cardiac pacemaker in situ (~2013) CAD (coronary artery disease) (HFpEF) heart failure with preserved ejection fraction Surgical History Status post transcatheter aortic valve replacement History of cardiac cath History of heart surgery History of elbow surgery History of cardioversion History of permanent cardiac pacemaker placement Family History Father No problems noted. Mother CVD (cardiovascular disease) Social History Household Members: Children Household Members Other:: son Housing: House Are you a primary home care manager rn to a significant other at home: No Do you presently have visiting nurse or other home services: No Alcohol intake: current Alcohol intake frequency: holidays/special occasions only Alcohol type: wine Comment: Uses scooter Patient Tobacco Use Status: Former Tobacco user Tobacco use type: Cigarette Second Hand Smoke Exposure: No Advance Directives Date on File: 09/02/24 service: No Current occupational status: employed Review of Systems Const Denies chills, Denies fatigue, Denies fever(s), Denies frequent falls, Denies weakness, Denies weight gain and Denies weight loss ENT Denies dizziness Card Denies chest pain, Denies leg edema, Denies lightheadedness, Denies palpitations, Denies dyspnea, Denies dyspnea on exertion, Denies orthopnea and Denies other (loss of consciousness) Resp Denies cough, Denies dyspnea and Denies dyspnea on exertion GI Denies hematochezia and Denies change in stool character Musc Denies abnormal gait, Denies muscle weakness, Denies numbness, Denies radiating pain into limb and Denies tingling Neuro Denies abnormal gait, Denies dizziness, Denies frequent falls, Denies numbness, Denies tingling and Denies weakness Endo Denies fatigue and Denies palpitations Physical Exam Vital Signs: Last Vital Signs Pulse 71 12/19/24 14:57 BP 110/70 12/19/24 14:57 BMI result Body Mass Index 22.8 Const General: cooperative, comfortable, alert and awake Nutritional Appearance: other (Frail elderly woman) Orientation/consciousness: patient oriented x3 Limitations: ambulation with walker Neck Neck: Yes trachea midline, Yes supple and Yes no JVD Resp Effort & Inspection: normal respiratory effort Auscultation: clear to auscultation bilaterally and diminished lung sounds Cardio Jugular venous distension: no JVD Rate: regular rate Rhythm: regular rhythm Heart sounds: S1 normal heart sound present, S2 normal heart sound present, no click, no gallops and Murmur heart sound present diastolic early Skin General skin exam: no rashes or lesions noted and ecchymosis Neuro General: patient oriented x3 and no focal motor deficits Extrem General: Yes no clubbing, cyanosis or edema Office Procedures EKG Details: EKG ventricular paced rhythm with underlying atrial flutter/fibrillation, [id number], Complete Assessment & Plan Assessment & Plan (1) Persistent atrial fibrillation: Code(s): I48.19 - Other persistent atrial fibrillation Category: Medical Plan: Persistent atrial flutter/fibrillation has failed rhythm control approach with amiodarone. In the past has done extremely well with rhythm control approach with much improvement in quality of life. She wants to follow this up with electrophysiology at [facility]. I strongly recommended to pursue ablated therapy including atrial fibrillation as well as flutter ablation. She is going to pursue the same. Continue full oral anticoagulation, currently on Xarelto 20 mg daily. Avoidance of stimulants was discussed. (2) (HFpEF) heart failure with preserved ejection fraction: Code(s): I50.30 - Unspecified diastolic (congestive) heart failure Category: Medical Plan: Heart failure preserved ejection fraction with symptoms much improved after TAVR but continues to NYHA class 2-3 symptoms related to recurrent atrial fibrillation flutter with underlying diastolic dysfunction. She will benefit from rhythm control approach. Management as above. Clinically currently does not appear to be fluid overloaded. Continue current diuretic dose. Progressive symptoms of heart failure were discussed. Additional diuretics as need be. Continue aggressive blood pressure control. (3) Labile blood pressure: Code(s): R09.89 - Other specified symptoms and signs involving the circulatory and respiratory systems Category: Medical Plan: Labile blood pressure which seems to be improved on current therapy. Continue amlodipine at current dose. Low-salt diet was discussed. Advised to intermittently monitor blood pressure at home maintain a log and call me with new significant changes in his blood pressure recordings. (4) Status post transcatheter aortic valve replacement: Comment: Evolut, 29 mm bioprosthetic valve, September 2024 Code(s): Z95.2 - Presence of prosthetic heart valve Category: Surgical Plan: Status post transcatheter aortic valve replacement. Clinically has done better with improved symptoms exertional chest pressure fatigue. Clinically working well. Continue SBE prophylaxis as per ACC/aha guidelines. Continue full oral anticoagulation with apixaban. Aspirin can be discontinued. (5) Hypertrophic cardiomyopathy: Comment: Status post alcohol septal ablation Code(s): I42.2 - Other hypertrophic cardiomyopathy Category: Medical Plan: Prior history of hypertrophic cardiomyopathy status post septal ablation. Overall has done well with no recurrent episodes. No evidence of ventricular arrhythmias on pacer telemetry. Continue to monitor clinically. (6) Cardiac pacemaker in situ: Onset Date: ~2013 Comment: (Medtronic DCPP - placed 2013, generator change 02/2022) Code(s): Z95.0 - Presence of cardiac pacemaker Category: Medical Plan: Cardiac pacemaker in-situ, working well. Will follow remotely. Battery life is close to replacement. (7) CAD (coronary artery disease): Comment: Cardiac catheterization pre TAVR showed 60% disease in LAD, 40-50% disease in circumflex and 90% disease at the ostium of the RPL Code(s): I25.10 - Atherosclerotic heart disease of [place] coronary artery without angina pectoris Category: Medical Plan: CAD with no recurrent symptoms of angina at current point in time. Continue aggressive risk factor modification. Continue current full oral anticoagulation. Aspirin can be withheld. Consider statin therapy with target goal LDL less than 70 mg/dL. Will follow up in the clinic in 2 months time, sooner p.r.n.. Greater than 40 minutes was spent in managing his complex care Coding Level of Care Code Est Pt Level 5 (21231) Complex EM visit Add On G2211 Diagnoses Persistent atrial fibrillation I48.19 (HFpEF) heart failure with preserved ejection fraction I50.30 Labile blood pressure R09.89 Status post transcatheter aortic valve replacement Z95.2 Hypertrophic cardiomyopathy I42.2 Cardiac pacemaker in situ Z95.0 CAD (coronary artery disease) I25.10 CPT Codes EKG - CPT: 29909-[id number], Complete ([id number])
--- OUTSIDE RECORDS SUMMARY | 2024-12-19 16:02 | XMS_ITS | Continuity of Care Document ---
Author Organization [facility] Address [address] [place] [address]- Care Team Providers Care Cell Geneticist Name Role Phone Jerome Guido MD Primary Care Physician [phone] [place] [facility] [place] 11/10/24 - 12/10/[address] [address] Attending Physician: Gloria Smith Admitting Physician: Gloria [...] 4:10:00 PM EST, Route to Pharmacy Electronically, [facility], Partial fill upon patient [...] 9:50:00 AM EST, Route to Pharmacy Electronically, [facility], Partial fill upon patient [...] Position: Reference Physician Member Role: PCP Address: [address] [place] [address] Jerome Guido MD [address] Telecom: [phone] Name: Philip Obrien RN Position: S RN [...] NA Health Plan Information #: 2 Payer: [facility] [employer] Member Number: NA Policy Number: NA Group Number: NA
--- OUTSIDE RECORDS SUMMARY | 2024-12-19 16:03 | XMS_ITS ---
Author Organization [facility] [place] Address Unknown Allergies, Adverse Reactions, Alerts Substance Reaction Status Noted Date Resolved Date Latex active 10/10/2024 Medications Medication Dose Frequency Directions Start Date End Kelvin e Acetaminophen Tablet 325 MG 2 {tbl} Give 2 tablet by madeleine th every 4 hours as needed for Mild Pain More than 3 doses in 48 hours, notify physician/advanced practice provider(KARLA).Do not exceed 3g/day. (standing order) 10/10/2024 Acetaminophen Tablet 325 MG 2 {tbl} Give 2 tablet by madeleine th every 6 hours as needed for Temp 100F or above Notify Physician/Advanced Practice provider. Do not exceed 3g/day 10/10/2024 Milk of Magnesia Suspension 400 MG/5ML 30 mL Give 30 ml by mout h as needed for Constipation give at bedtime if no BM in 3 days 10/10/2024 Saline Laxative Enema 1 {Dose} Insert 1 dose rectally as needed for Constipation if no result from Dulcolax within 2 hours. If no results from Saline laxative enema, call MD/advanced practice provider (KARLA) for further orders. 10/10/2024 Dulcolax Suppository 10 MG 1 Insert 1 suppository rectally as needed for Constipation if no result from MOM by next shift 10/10/2024 Furosemide Tablet 40 MG 1 {tbl} 24 h Give 1 tablet by mouth one time a day for fluid overload 10/12/2024 Proventil HFA Aerosol Solution 108 (90 Base) MCG/ACT 2 2 puff inhale orally every 6 hours as needed for cough or wheeze 10/11/2024 Xarelto Oral Tablet 20 MG 20 mg 24 h Give 20 mg by mouth one time a day for take with food 10/12/2024 Montelukast Sodium Tablet 10 MG 1 {tbl} Give 1 tablet by madeleine th at bedtime for asthma maintenance treatment and/or allergy symptom relief 10/13/2024 Amiodarone HCl Tablet 200 MG 1 {tbl} 24 h Give 1 tablet by madeleine th one time a day for abnormal heart rhythm 10/12/2024 AmLODIPine Besylate Tablet 10 MG 1 {tbl} 24 h Give 1 tablet by madeleine th one time a day for HTN hold for SBP < 112 10/12/2024 Aspirin EC Low Dose Oral Tablet Delayed Release 81 MG 81 mg 24 h Give 81 mg orally on e time a day for Prophylactic 10/12/2024 Phytoplex Z-Guard Paste 57-17 % Apply to left buttoc k topically every day and evening shift for MASD Apply as directed. 10/13/2024 Phytoplex Z-Guard Paste 57-17 % Apply to left buttoc ks topically as needed for after incontinence 10/13/2024 Saline Nasal [place] Solution 1 1 spray in each nostril every 6 hours as needed for dry membranes 10/19/2024 Medications Administered Medication Dose Frequency Status Start Date End Date Acetaminophen Tablet 325 MG 2 {tbl} Acetaminophen Tablet 325 MG 2 {tbl} Milk of Magnesia Suspension 400 MG/5ML 30 mL 10/10/2024 Saline Laxative Enema 1 {Dose} 10/10/20 Dulcolax Suppository 10 MG 1 12/2023 Furosemide Tablet 40 MG 1 {tbl} 24 h 2023 Proventil HFA Aerosol Soluti on 108 (90 Base) MCG/ACT 2 10/11/2024 Xarelto Oral Tablet 20 MG 20 mg 24 h 10/10 Montelukast Sodium Tablet 10 MG 1 {tbl} 10/29/2024 Amiodarone HCl Tablet 200 MG 1 {tbl} 24 h 1 12/30/2023 AmLODIPine Besylate Tablet 10 MG 1 {tbl} 24 h 10/29/2024 Aspirin EC Low Dose Oral Tab let Delayed Release 81 MG 81 mg 24 h 10/29/2024 Phytoplex Z-Guard Paste 57-17 % 10/29/2024 Phytoplex Z-Guard Paste 57-17 % 10/13/2024 Saline Nasal [place] Solution 1 Problems Problem Status Start Date End Date NONRHEUMATIC AORTIC (VALVE) STENOSIS (Primary) (I35.0 - ICD-10-CM) ACTIVE 10/11/2024 PRESENCE OF PROSTHETIC HEART VALVE (Z95.2 - ICD-10-CM) ACTIVE 10/11/2024 OTHER HYPERTROPHIC CARDIOMYOPATHY (I42.2 - ICD-10-CM) ACTIVE 10/11/2024 PAROXYSMAL ATRIAL FIBRILLATION (I48.0 - ICD-10-CM) ACT BALJIT 10/11/2024 PULMONARY HYPERTENSION, UNSPECIFIED (I27.20 - ICD-10-C M) ACTIVE 10/11/2024 UNSTEADINESS ON FEET (R26.81 - ICD-10-CM) ACTIVE 10/12/2024 MUSCLE WEAKNESS (GENERALIZED) (M62.81 - ICD-10-CM) ACT BALJIT 10/12/2024 SHORTNESS OF BREATH (R06.02 - ICD-10-CM) ACTIVE 10/12/2024 ATRIOVENTRICULAR BLOCK, COMPLETE (I44.2 - ICD-10-CM) A CTIVE 10/11/2024 UNSPECIFIED SYSTOLIC (CONGES TIVE) HEART FAILURE (I50.20 - ICD-10-CM) ACTIVE 10/11/2024 PRESENCE OF CARDIAC PACEMAKER (Z95.0 - ICD-10-CM) ACTI VE 10/11/2024 Encounters Encounter Performer Performer Role Encounter Diagnoses Location Date Discharge - Discharged to home or self care - *Home Care Agency To Be Determined - Private home/apt. with home health services [facility] [place] 10/11/2024 03:45 pm EST - 10/29/2024 11:00 am EST Advance Directives Directive Description Verification FULL CODE Cardiopulmonary Resuscitation Immunizations Vaccine Date TB 1 Step Mantoux (PPD) 10/23/2024 05:00 pm EST Flu Vaccine Prior To Admission (historic al only) 10/09/2024 12:00 am EST Pneumococcal conjugate PCV20 [id number] SpikeVax (moderna) COVID19 CVX 312 10/14/2024 02:40 pm EST Social History Vital Signs Vital Sign Reading Time Taken heartrate 70 /min 10/29/2024 05:29 am EST heartrate 72 /min 10/28/2024 04:23 am EST heartrate 70 /min 10/27/2024 10:51 pm EST heartrate 74 /min 10/27/2024 01:36 pm EST heartrate 74 /min 10/27/2024 09:25 am EST heartrate 74 /min 10/26/2024 04:50 pm EST temperature 97.7 [degF] 10/29/2024 05:29 am EST temperature 97.9 [degF] 10/28/2024 04:23 am EST temperature 98 [degF] 10/27/2024 10:50 pm EST temperature 97.8 [degF] 10/26/2024 04:50 pm EST systolicValue 134 mm[Hg] 10/29/2024 05:29 am EST diastolicValue 75 mm[Hg] 10/29/2024 05:29 am EST systolicValue 115 mm[Hg] 10/28/2024 10:20 am EST diastolicValue 76 mm[Hg] 10/28/2024 10:20 am EST systolicValue 141 mm[Hg] 10/28/2024 04:23 am EST diastolicValue 80 mm[Hg] 10/28/2024 04:23 am EST systolicValue 131 mm[Hg] 10/27/2024 10:51 pm EST diastolicValue 82 mm[Hg] 10/27/2024 10:51 pm EST systolicValue 134 mm[Hg] 10/27/2024 01:36 pm EST diastolicValue 59 mm[Hg] 10/27/2024 01:36 pm EST systolicValue 134 mm[Hg] 10/27/2024 09:25 am EST diastolicValue 59 mm[Hg] 10/27/2024 09:25 am EST systolicValue 138 mm[Hg] 10/26/2024 04:50 pm EST diastolicValue 76 mm[Hg] 10/26/2024 04:50 pm EST systolicValue 134 mm[Hg] 10/26/2024 10:28 am EST diastolicValue 72 mm[Hg] 10/26/2024 10:28 am EST respirations 20 /min 10/29/2024 05:29 am EST respirations 20 /min 10/28/2024 04:24 am EST respirations 18 /min 10/27/2024 10:51 pm EST respirations 18 /min 10/26/2024 04:50 pm EST painLevel 0 {score} 10/29/2024 02:27 am EST painLevel 0 {score} 10/28/2024 10:04 pm EST painLevel 0 {score} 10/28/2024 12:51 pm EST painLevel 0 {score} 10/28/2024 01:52 am EST painLevel 0 {score} 10/27/2024 10:15 pm EST painLevel 0 {score} 10/27/2024 12:11 pm EST painLevel 0 {score} 10/26/2024 04:53 pm EST painLevel 0 {score} 10/26/2024 04:50 pm EST painLevel 0 {score} 10/26/2024 10:27 am EST oxygenSaturation 97 % 10/26/2024 04:5 0 pm EST oxygenSaturation 96 % 10/25/2024 04:2 9 pm EST
--- OUTSIDE RECORDS SUMMARY | 2024-12-19 16:03 | XMS_ITS ---
Author Organization Jerome Guido MD Address [address] [place], [place] [id number] Care Team Providers Care Sales Analytics Manager Name Role Phone Jerome Guido Primary Care Provider Allergies No Known Allergies REASON FOR VISIT PH/ TCM Medications Medication SIG (Take, Route, Frequency, Duration) Notes Start Date End Date Status ProAir HFA 108 (90 Base) MCG/ACT 2 puffs as needed Inhalation every 4 hrs for 30 days 09/11/2015 Not-Taking Ventolin HFA 108 (90 Base) MCG/ACT INHALE 2 PUFFS BY MOUTH EVERY 4 HOURS NEEDED for 16 Not-Taking Ferrous Sulfate 324 (65 Fe) MG 1 tablet Orally twice a day Not-Taking Advair Diskus 250-50 MCG/DOSE INHALE 1 PUFF BY MOUTH TWICE DAILY for 30 Not-Taking Amiodarone HCl 200 MG 1 tablet Orally On ce a day Active Montelukast Sodium 10 MG TAKE 1 TABLET B Y MOUTH EVERY DAY for 90 Active Albuterol Sulfate HFA 108 (90 Base) MCG/ACT INHALE 1 PUFF BY MOUTH EVERY 4 HOURS NEEDED for 33 Active Furosemide 20 MG 1 tablet by mouth ev oskar day Orally Once a day Not-Taking Xarelto 20 MG TAKE 1 TABLET BY ALANNA TH EVERY DAY WITH FOOD Orally Once a day for 90 days Active Aspirin 81 81 MG 1 tablet Orally Once a day for 30 day(s) Active amLODIPine Besylate 10 MG 0.5 tablet Ora lly Once a day Active Problems Problem Type SNOMED Code ICD Code Onset Dates Problem Status W/U Status Risk Notes Problem [id number] S/P TAVR (transcathet er aortic valve replacement) (Z95.2) Active confirmed Vital Signs Blood pressure systolic 102 mm Hg 11/17/19 25 Blood pressure diastolic 60 mm Hg 025 Height 66 in 11/17/2024 Weight 140 lbs 11/17/2024 BMI 22.59 kg/m2 11/17/2024 weight is up 6 pounds since 08-12-24 Encounters Encounter Location Date Provider Diagnosis Jerome Guido MD [address] [place], [place] [phone] 11/17/2024 Jerome Guido Chronic systolic congestive heart failure I50.22 and S/P TAVR (transcatheter aortic valve replacement) Z95.2 Assessments Encounter Date Diagnosis (ICD Code) Assessment Notes Treatment Notes Treatment Clinical Notes Section Notes 11/17/2024 Chronic systolic congestive heart failure (ICD-10 - I50.22) doing well . had been in afib and is not at present 11/17/2024 S/P TAVR (transcatheter aortic valve replacement) (ICD-10 - Z95.2) recovered nicely Plan Of Treatment Medication Medication Name Sig Start Date Stop Date Notes Amiodarone HCl 200 MG 1 tablet Orally Once a day Treatment Notes Assessment Notes Chronic systolic congestive heart failur e doing well . had been in afib and is not at present S/P TAVR (transcatheter aort ic valve replacement) recovered nicely Next Appt Details Follow Up: 4 Weeks, Reason: Provider Name:Jerome perez, 01/02/2025 01:30:00 PM, [address], [address], [place], [place], [phone], Progress Notes * Sophie VIDAL EDOB: [birth year] (78 yo F)Acc No.[id number]:11/17/2024 Patient:?Sophie Vidal Provider:?Jerome Guido MD :1945???Age:78 Y???Sex:Female D ate:11/17/2024 Address:[address] [place] [address] [id number] Subjective: * Chief Complaints: * ???PH/ TCM * HPI: ???Symptom(s):? patient is a 78 yo female here for transitional care management visit for [facility] recent hospitalization, discharge summary has been reviewed and medications reconcilled. got afib after surgery and is getting cardioversion next week.. [facility] lost them in hospital for 4 hours/ sent them to a room and they couldn't find them for 4 hours. * ROS:?General/Constitutional:?Denies?Chills.?Denies?Fatigue.?Denies?Fever.?Denies?Headache.?ENT:?Patient denies?decreased sense of smell , any loss of taste , sore throat.?Denies?Sore throat.?Respiratory:?Denies?Cough.?Denies?Shortness of breath at rest.?Denies?Shortness of breath with exertion.?Cardiovascular:?Denies?Chest pain at rest.?Denies?Chest pain with exertion.?Admits?Dizziness.?Denies?Fluid accumulation in the legs.?Denies?Palpitations.?Admits?Shortness of breath.?Gastrointestinal:?Denies?Diarrhea.?Denies?Nausea.?Musculoskeletal:?Patient denies?muscle aches.?Peripheral Vascular:?Patient denies?red and blue toes.? * Medical History:? * Surgical History:? * Hospitalization/Major Diagno stic Procedure:? * Medications:?TakingAspirin 8 1 81 MG Tablet Delayed Release 1 tablet Orally Once a dayamLODIPine Besylate 10 MG Tablet 0.5 tablet Orally Once a dayMontelukast Sodium 10 MG Tablet TAKE 1 TABLET BY MOUTH EVERY DAY Albuterol Sulfate HFA 108 (90 Base) MCG/ACT Aerosol Solution INHALE 1 PUFF BY MOUTH EVERY 4 HOURS NEEDED Amiodarone HCl 200 MG Tablet 1 tablet Orally Once a dayXarelto 20 MG Tablet TAKE 1 TABLET BY MOUTH EVERY DAY WITH FOOD Orally Once a dayTaking Aspirin 81 81 MG Tablet Delayed Release 1 tablet Orally Once a dayTaking amLODIPine Besylate 10 MG Tablet 0.5 tablet Orally Once a dayTaking Montelukast Sodium 10 MG Tablet TAKE 1 TABLET BY MOUTH EVERY DAY Taking Albuterol Sulfate HFA 108 (90 Base) MCG/ACT Aerosol Solution INHALE 1 PUFF BY MOUTH EVERY 4 HOURS NEEDED Taking Amiodarone HCl 200 MG Tablet 1 tablet Orally Once a dayTaking Xarelto 20 MG Tablet TAKE 1 TABLET BY MOUTH EVERY DAY WITH FOOD Orally Once a dayNot-Taking/PRNFurosemide 20 MG Tablet 1 tablet by mouth every day Orally Once a dayVentolin HFA 108 (90 Base) MCG/ACT Aerosol Solution INHALE 2 PUFFS BY MOUTH EVERY 4 HOURS NEEDED Ferrous Sulfate 324 (65 Fe) MG Tablet Delayed Release 1 tablet Orally twice a dayAdvair Diskus 250-50 MCG/DOSE Aerosol Powder Breath Activated INHALE 1 PUFF BY MOUTH TWICE DAILY ProAir HFA 108 (90 Base) MCG/ACT Aerosol Solution 2 puffs as needed Inhalation every 4 hrsNot-Taking/PRN Furosemide 20 MG Tablet 1 tablet by mouth every day Orally Once a dayNot-Taking/PRN Ventolin HFA 108 (90 Base) MCG/ACT Aerosol Solution INHALE 2 PUFFS BY MOUTH EVERY 4 HOURS NEEDED Not-Taking/PRN Ferrous Sulfate 324 (65 Fe) MG Tablet Delayed Release 1 tablet Orally twice a dayNot-Taking/PRN Advair Diskus 250-50 MCG/DOSE Aerosol Powder Breath Activated INHALE 1 PUFF BY MOUTH TWICE DAILY Not-Taking/PRN ProAir HFA 108 (90 Base) MCG/ACT Aerosol Solution 2 puffs as needed Inhalation every 4 hrsDiscontinuedVerapamil HCl ER 180 MG Capsule Extended Release 24 Hour 1 capsule Orally bidMedication List reviewed and reconciled with the patientDiscontinued Verapamil HCl ER 180 MG Capsule Extended Release 24 Hour 1 capsule Orally bidMedication List reviewed and reconciled with the patient * Allergies:?N.K.D.A.yes[Aller gies Verified] Objective: * Vitals:?Ht: 66, Wt:140, BMI: 22.59, BP:102/60 weight is up 6 pounds since 08-12-24. * Examination: ???General Examination: ?GENERAL APPEARANCE:?well developed, well nourished.?HEAD:?normocephalic.?SKIN:?good turgor.?HEART:?regular rate and rhythm , no murmurs, rubs, gallops.?EXTREMITIES:?no edema.? Assessment: * Assessment: 1.?Chronic systolic congesti ve heart failure - I50.22 (Primary)?2.?S/P TAVR (transcatheter aortic valve replacement) - Z95.2? Plan: * Treatment: 2.?S/P TAVR (transcatheter a ortic valve replacement)? Notes: recovered nicely?? * Procedure Codes:?[id number] Compl ex e/m visit add on * Follow Up:?4 Weeks * * Sign off status: Completed true * Provider:?Jerome Guido MD Date:?0 11/17/2024 Generated for Danyelle bentley/Satish/Reneitting on:?12/19/2024 04:02 PM EST History and Physical Notes * HPI (History of Present Illness) Category Sub-Category Detail Notes Category Not es Symptom(s) patient is a 78 yo female here for transitional care management visit for [facility] recent hospitalization, discharge summary has been reviewed and medications reconcilled. got afib after surgery and is getting cardioversion next week.. [facility] lost them in hospital for 4 hours/ sent them to a room and they couldn't find them for 4 hours Examination Category Sub-Category Detail Notes Category Not es General Examination GENERAL APPEARANCE: well developed , well nourished HEAD: normocephalic HEART: regular rate and rhy thm , no murmurs, rubs, gallops SKIN: good turgor EXTREMITIES: no edema
--- OUTSIDE RECORDS SUMMARY | 2024-12-19 16:03 | XMS_ITS ---
Author Organization Jerome Guido MD Address [address] [place] [phone] Care Team Providers Care Rnp Name Role Phone Jerome Guido Primary Care Provider Allergies No Known Allergies REASON FOR VISIT 2 month Encounters Encounter Location Date Provider Diagnosis Jerome Guido MD [address] [place] [phone] 10/13/2024 Jerome Guido Plan Of Treatment Next Appt Details Provider Name:Jerome Orosco ier, 01/02/2025 01:30:00 PM, [address], [address], [place], [place], [phone], Progress Notes * Sophie VIDAL EDOB: [birth year] (79 yo F)Acc No.[id number]:10/13/2024 Progress Notes Patient:?Sophie VIDAL Provider:?Jerome Guido MD :1945???Age:78 Y???Sex:Female D ate:10/13/2024 Address:[id number] Subjective: * Chief Complaints: * ???1. 2 month. * ROS:?General/Constitutional:?Denies?Chills.?Denies?Fatigue.?Denies?Fever.?Denies?Headache.?ENT:?Denies?Sore throat.?Respiratory:?Denies?Cough.?Denies?Shortness of breath at rest.?Denies?Shortness of breath with exertion.?Gastrointestinal:?Denies?Diarrhea.?Denies?Nausea.? * Medical History:?[place] [phone] cardio dante rory., 01/27/14 no BELTING CUTTER & no mammos in years, Upper endo march 2018. * Allergies:?N.K.D.A. Objective: * Vitals:? Assessment: Plan: * Treatment: * * The named appointment provid er may or may not be the originator of this progress note, and it is not deemed complete until electronically signed by the appointment provider. Sign off status: Pending * Provider:?Jerome Guido MD Date:?1 12/14/2023 Generated for Danyelle bentley/Satish/Reneitting on:?12/19/2024 04:02 PM EST
--- OUTSIDE RECORDS SUMMARY | 2024-12-19 16:03 | XMS_ITS ---
Author Organization Jerome Guido MD Address [address] [place] [phone] Care Team Providers Care Bleach Chlorinator Name Role Phone Jerome Guido Primary Care Provider [phone] REASON FOR VISIT Discharge summary rec'd from [facility] Encounters Encounter Location Date Provider Diagnosis Jerome Guido MD [address] [place] [phone] 11/01/2024 Jerome Guido Plan Of Treatment Next Appt Details Provider Name:Jerome Orosco ier, 01/02/2025 01:30:00 PM, [address], Suite [facility], [place], [place], [phone], Progress Notes * Sophie VIDAL EDOB: [birth year] (78 yo F)Acc No.[id number]:11/01/2024 Patient:?Sophie Vidal :1945???Age:78 Y???Sex:Female Address:[address] [place] [address] [facility] ID * true * Date:? Generated for Danyelle bentley/Satish/Sigrid on:?12/19/2024 04:03 PM EST
== END 2024-12-19 15:32 | disposition home or self-care (01) ==
PROVIDERS: PCP Internal Medicine; Visit Provider Internal Medicine Cardiovascular Disease
DX: I48.19 Other persistent atrial fibrillation (principal); I50.30 Unspecified diastolic (congestive) heart failure; R09.89 Other specified symptoms and signs involving the circulatory and respiratory systems; Z95.2 Presence of prosthetic heart valve; I42.2 Other hypertrophic cardiomyopathy; Z95.0 Presence of cardiac pacemaker; I25.10 Atherosclerotic heart disease of native coronary artery without angina pectoris
CPT/HCPCS: 93010; 99215

== ENCOUNTER → 2024-12-19 14:49 | Outpatient (BNVA) | payer MEDICARE, OTHER, SELFPAY | PROVIDERS: PCP Internal Medicine; Visit Provider Internal Medicine Cardiovascular Disease | DX: I48.19 Other persistent atrial fibrillation (principal); I50.30 Unspecified diastolic (congestive) heart failure; I25.10 Atherosclerotic heart disease of native coronary artery without angina pectoris; I42.2 Other hypertrophic cardiomyopathy; R09.89 Other specified symptoms and signs involving the circulatory and respiratory systems; Z95.0 Presence of cardiac pacemaker; Z95.2 Presence of prosthetic heart valve; Z87.891 Personal history of nicotine dependence | CPT/HCPCS: 93005; 99212 ==

== ENCOUNTER → 2024-12-20 23:59 | Outpatient (BNV) | payer MEDICARE, OTHER, SELFPAY ==
--- NOTE | 2024-12-22 14:16 | MHC.OFFVIS ---
Intake Visit Reasons: Remote device check-Medtronic Allergies latex Allergy (Mild, Verified 11/23/24 13:31) Redness of Skin seasonal Allergy (Mild, Uncoded 11/23/24 13:31) Itchy Eyes PFSH Medical History Aortic stenosis Aortic stenosis, severe History of complete heart block History of blood transfusion History of GI bleed Personal history of COVID-19 Cervical disc disorder Hx of pulmonary embolus History of DVT (deep vein thrombosis) Anemia Asthma Non-rheumatic aortic stenosis Edema, peripheral Congestive heart failure Hypertrophic cardiomyopathy Pulmonary hypertension Obesity Paroxysmal atrial fibrillation Cardiac pacemaker in situ (~2013) CAD (coronary artery disease) (HFpEF) heart failure with preserved ejection fraction Surgical History Status post transcatheter aortic valve replacement History of cardiac cath History of heart surgery History of elbow surgery History of cardioversion History of permanent cardiac pacemaker placement Family History Father No problems noted. Mother CVD (cardiovascular disease) Social History Household Members: Children Household Members Other:: son Housing: House Are you a primary health careers instructor to a significant other at home: No Do you presently have visiting nurse or other home services: No Alcohol intake: current Alcohol intake frequency: holidays/special occasions only Alcohol type: wine Comment: Uses scooter Patient Tobacco Use Status: Former Tobacco user Tobacco use type: Cigarette Second Hand Smoke Exposure: No Advance Directives Date on File: 09/02/24 service: No Current occupational status: employed Office Procedures Cardiac Device Check Cardiac Device Check Details: Remote pacemaker report generated 12/20/2024. Pacemaker function is adequate. Underlying [place] [id number] Cardiac Device Interrogation, pacemaker Procedure code (CPT) selection complete Assessment & Plan Assessment & Plan (1) Cardiac pacemaker in situ: Onset Date: ~2013 Comment: (Medtronic DCPP - placed 2013, generator change 02/2022) Code(s): Z95.0 - Presence of cardiac pacemaker Category: Medical Plan: See above Coding Level of Care Code Procedure Only Diagnoses Cardiac pacemaker in situ Z95.0 CPT Codes Cardiac Device Check - Cardiac Device 12: [id number] Cardiac Device Interrogation, pacemaker ([id number])
== END ==
PROVIDERS: PCP Internal Medicine; Visit Provider Internal Medicine Cardiovascular Disease
DX: I48.91 Unspecified atrial fibrillation (principal); Z95.0 Presence of cardiac pacemaker
CPT/HCPCS: 93294

== ENCOUNTER 2025-01-02 14:08 | Inpatient (IN) | payer MEDICARE, OTHER, SELFPAY ==
[2025-01-02] VITALS (8 sets, daily range): BP systolic 113–133; BP diastolic 65–71; PULSE 70–80; RESP 13–20; TEMP 36.5–37.1; O2SAT 94–99; BMI 20.7
--- NOTE | ~2025-01-02 | XR_ITS ---
EXAMINATION: XR CHEST 1 VIEW HISTORY: SOB COMPARISON: Comparison is made with the prior examination dated 09/02/2024. FINDINGS: A single AP portable view of the chest performed at 3:37 PM is submitted. A left subclavian dual-chamber pacemaker is unchanged in position. There is partial opacification of the left lung base which likely represents a small pleural effusion. Underlying atelectasis or pneumonia is not excluded. The heart is enlarged. A valvular prosthesis is noted. There is degenerative disc disease of the spine and degenerative change of the bilateral shoulders. XR/XR chest 1V IMPRESSION: Cardiomegaly. Probable small left pleural effusion. Underlying atelectasis or pneumonia at the left base is not excluded. Electronically signed by: Gavino Johansen MD 01/02/2025 03:54 PM JOSUE
--- NOTE | 2025-01-02 15:27 | ECG_ITS ---
Test Reason : AFIB/SOB Blood Pressure : */* mmHG Vent. Rate : 71 BPM Atrial Rate : 71 BPM P-R Int : 178 ms QRS Dur : 232 ms QT Int : 580 ms P-R-T Axes : * -78 116 degrees QTcB Int : 630 ms AV dual-paced rhythm Abnormal ECG When compared with ECG of 23-Nov-2024 15:08, No significant change was found Referred By: Dorys Paz Electronically Signed By: CORONA HERRERA
--- NOTE | 2025-01-02 15:54 | ED_ITS ---
HPI - General Adult General Chief complaint: Arrhythmia/Palpitations Stated complaint: SOB ON EXARTION,MISSED LASIX X2D PER EMS Time Seen by Provider: 01/02/25 15:36 Source: patient, EMS, RN notes reviewed and old records reviewed Mode of arrival: EMS Limitations: no limitations History of Present Illness ED Provider: DR. Velázquez HPI narrative: 79-year-old female PMH HFpEF, severe aortic stenosis s/p TAVR, pulmonary hypertension, hypertrophic cardiomyopathy, coronary artery disease, heart block s/p pacemaker, AFib on Xarelto, history of DVT/pulmonary embolism, history of GI bleed, patient yesterday had an episode of rapid atrial fibrillation that she feels palpitation and generalized weakness with shortness of breath, patient did not take her Lasix pills and feel lower extremity is getting more swollen, with increased difficulty breathing with exertion or at night when she tried to lay supine. Patient also feels right frontal/right maxillary sinus pressure with purulent nasal discharge. No fever, no chills. Related Data Home Medications ?Medication ?Instructions ?Recorded ?Confirmed albuterol sulfate 90 mcg/actuation 2 puff PO Q4H PRN Shortness Of 12/17/20 12/19/24 aerosol inhaler Breath montelukast 10 mg tablet 10 mg PO DAILY 12/17/20 12/19/24 rivaroxaban 20 mg tablet 20 mg PO DAILY@1700 12/17/20 12/19/24 acetaminophen 325 mg tablet 650 mg PO Q4H PRN Pain 09/02/24 12/19/24 aspirin 81 mg tablet,delayed 81 mg PO DAILY 11/15/24 12/19/24 release (Adult Aspirin Regimen) furosemide 40 mg tablet 40 mg PO ONCE 11/15/24 12/19/24 Previous Rx's ?Medication ?Instructions ?Recorded amiodarone 200 mg tablet 200 mg PO DAILY #30 tabs 07/28/24 amlodipine 10 mg tablet 5 mg (1/2 x 10 mg) PO QPM #45 tabs 12/02/24 Allergies Allergy/AdvReac Type Severity Reaction Status Date / Time latex Allergy Mild Redness of Verified 01/02/25 15:11 Skin seasonal Allergy Mild Itchy Eyes Uncoded 01/02/25 15:11 Review of Systems 2 Review of Systems: All other systems are reviewed and are negative Constitutional: Reports as per HPI and Reports no additional constitutional complaints Eyes: Reports as per HPI and Reports no additional eye complaints Reports system reviewed and no additional complaints, except as documented Cardiovascular: Reports as per HPI and Reports no additional cardiovascular complaints Respiratory: Reports as per HPI and Reports no additional respiratory complaints Gastrointestinal: Reports as per HPI and Reports no additional gastrointestinal complaints Genitourinary: Reports no additional female genitourinary complaints Musculoskeletal: Reports no additional musculoskeletal complaints Skin/Breast: Reports system reviewed and no additional complaints, except as docu Psychiatric: Reports no additional psychiatric complaints Endocrine: Reports no additional endocrine complaints Hematologic/Lymphatic: Reports no additional hematologic/lymphatic complaints Allergic/Immunologic: Reports no additional allergic/immunologic complaints Reports system reviewed and no additional complaints, except as documented and Reports Abnormal speech present [facility] Past Medical History Medical History Aortic stenosis Aortic stenosis, severe History of complete heart block History of blood transfusion History of GI bleed Personal history of COVID-19 Cervical disc disorder Hx of pulmonary embolus History of DVT (deep vein thrombosis) Anemia Asthma Non-rheumatic aortic stenosis Edema, peripheral Congestive heart failure Hypertrophic cardiomyopathy Pulmonary hypertension Obesity Paroxysmal atrial fibrillation Cardiac pacemaker in situ (~2013) CAD (coronary artery disease) (HFpEF) heart failure with preserved ejection fraction Surgical History Status post transcatheter aortic valve replacement History of cardiac cath History of heart surgery History of elbow surgery History of cardioversion History of permanent cardiac pacemaker placement Family History Family History Father No problems noted. Mother CVD (cardiovascular disease) Social History Social History Household Members: Children Household Members Other:: son Housing: House Are you a primary coronary care unit nurse to a significant other at home: No Do you presently have visiting nurse or other home services: No Alcohol intake: current Alcohol intake frequency: holidays/special occasions only Alcohol type: wine Comment: Uses scooter Patient Tobacco Use Status: Former Tobacco user Tobacco use type: Cigarette Second Hand Smoke Exposure: No Advance Directives: Yes Advance Directives on File: Yes Advance Directives Date on File: 09/02/24 service: No Current occupational status: employed Physical Exam ED Vital Signs: Vital Signs - 24 hr 01/02/25 15:05 01/02/25 15:10 01/02/25 16:08 Temperature 98.8 F Pulse Rate 73 72 73 Respiratory Rate 13 18 20 Blood Pressure 133/65 124/71 124/71 Pulse Oximetry 96 96 94 Oxygen Delivery Method Room Air Room Air Room Air 01/02/25 16:09 Temperature Pulse Rate 73 Respiratory Rate Blood Pressure 124/71 Pulse Oximetry Oxygen Delivery Method BMI result Body Mass Index 20.7 Vital signs have been reviewed and appear to be correct. Blood pressure elevated. Heart rate normal. Respiratory rate normal. Temperature normal. Oxygen saturation normal. Appearance: Alert. Oriented X3. No acute distress. Head: Normal external exam. Normocephalic. Atraumatic. No Mckeon signs noted. No raccoon eyes noted Eyes: PERRLA. EOMI. Conjunctiva and sclera normal. Eyelids normal. ENT: TM's Normal. Pharynx normal. Uvula midline. Tenderness over right frontal/right maxillary sinus percussion. Neck: Normal inspection. Neck supple. FROM. No adenopathy. Thyroid Normal. No meningeal signs. No neck mass noted. CVS: Normal heart rate and rhythm. Heart sound normal. No murmurs noted. Pulses normal throughout. Respiratory: No respiratory distress. Painless inspiration. Breath sounds normal. No wheezes/rales/rhonchi noted. Chest nontender. No accessory muscle usage noted or decreased air movement noted. Abdomen: Soft and nontender. Bowel sounds normal in all 4 quadrants. No distention noted. No organomegaly noted. No visible injury noted. Back: No CVA tenderness. Full range of motion noted. Skin: Skin warm and dry. Normal skin color. Normal skin turgor. No rashes/lesions/lacerations noted. Extremities: No lower extremity edema. Extremities exhibit normal range of motion. Extremities nontender. Neuro: Oriented X 3. Cranial nerve exam: II-XII are grossly intact No motor deficit. No sensory deficit. Reflexes normal. Course Reevaluation(s) Reevaluation #1: 79-year-old female and congestive heart failure and acute right frontal/maxillary sinusitis. Will admit, administer Lasix and nitro, Augmentin for acute sinusitis. Time: 16:02 Medications Administered Discontinued Medications Generic Name Dose Route Start Last Admin Trade Name Freq PRN Reason Stop Dose Admin Furosemide 40 mg 01/02/25 15:53 01/02/25 16:10 Furosemide 40 Mg/4 Ml Vial IVPUSH 01/02/25 15:54 40 mg STAT STA Administration Protocol Nitroglycerin 0.5 inch 01/02/25 15:53 01/02/25 16:09 Nitroglycerin 2 % Oint 1 Gm Packet TRANSDERMA 01/02/25 15:54 0.5 inch ONCE ONE Administration Medical Decision Making Differential Diagnosis Differential Diagnoses: The differential diagnosis associated with the presentation includes (Pneumonia, pneumothorax, pleural effusion, congestive heart failure exacerbation, acute sinusitis, electrolyte derangement, severe anemia.) Admission/Observation Consideration of admission/observation: Escalation of care including admission/observation considered Consult Healthcare Provider Management of the patient was discussed with: Hospitalist (Dr. Almanzar) Lab Data MDM Lab Attestation statement: I reviewed the patient's lab results. 01/02/25 15:54 01/02/25 15:54 Labs: Lab Results 01/02/25 Range/Units 15:54 WBC 6.4 (4.8-10.8) X10*3/uL RBC 3.97 L (4.20-5.50) X10*6/uL Hgb 9.6 L (12.0-16.0) g/dl Hct 31.8 L (37.0-47.0) % MCV 80.1 (80.0-98.0) fL MCH 24.2 L (27.0-33.0) pg MCHC 30.2 L (31.0-35.0) g/dl RDW 17.7 H (11.0-16.0) % Plt Count 292 (160-400) X10*3/uL MPV 9.0 L (9.4-12.3) fL Immature Gran % (Auto) 0.6 H (0.0-0.4) % Neut % (Auto) 82.7 H (45-73) % Lymph % (Auto) 7.8 L (20-40) % [place] % (Auto) 7.8 (2-11) % Eos % (Auto) 0.3 (0-4) % Baso % (Auto) 0.8 (0-2) % Lymph # (Auto) 0.5 L (1.2-4.9) X10*3/uL [place] # (Auto) 0.5 (0.1-1.2) X10*3/uL Eos # (Auto) 0.0 (0.0-0.4) X10*3/uL Baso # (Auto) 0.1 (0.0-0.2) X10*3/uL Abs Immat Gran (auto) 0.04 H (0.00-0.03) X10*3/uL Absolute Neuts (auto) 5.3 (2.0-8.3) x10*3/uL Absolute Nucleated RBC 0.000 (0.0-0.012) X10*3/uL Nucleated RBC % (auto) 0.0 (0.0-0.2) /100WBC Sodium 140 (135-145) mmol/L Potassium 4.4 (3.3-5.1) mmol/L Chloride 112 H (96-108) mmol/L Carbon Dioxide 20 L (22-29) mmol/L Anion Gap 12 (12-20) BUN 45 H (9-16) mg/dL Creatinine 1.29 (0.5-1.4) mg/dL Estim Creat Clear Calc 34.4 Estimated GFR 40 Random Glucose 95 (60-115) mg/dL Calcium 8.5 D (8.4-10.2) mg/dL Magnesium 2.5 (1.6-2.6) mg/dL Total Bilirubin 0.9 (0.0-1.0) mg/dL Direct Bilirubin 0.4 (0.0-0.5) mg/dL AST 51 H (5-31) U/L ALT 32 H (0-31) U/L B-Natriuretic Peptide 997 H (<100) pg/mL Total Protein 6.9 (6.5-8.0) g/dL Albumin 3.5 (3.5-5.0) g/dL Influenza Type A (PCR) NEGATIVE (Negative) Influenza Type B (PCR) NEGATIVE (Negative) RSV RNA Qual (PCR) NEGATIVE (Negative) SARS-CoV-2 RNA (RT-PCR) NEGATIVE (Negative) Independent Interpretation I performed an independent interpretation of an: Plain X-Ray (Chest:Cardiomegaly. Probable small left pleural effusion. Underlying atelectasis or pneumonia at the left base is not excluded. ) Radiology Impression Discussion of test interpretation with radiology: I have reviewed the radiologist's reading. Chronic Conditions Patient?s care impacted by: Other (CHF.) Discharge Plan Discharge Clinical Impression: Congestive heart failure, Edema of both lower extremities, Acute sinusitis Patient Disposition: Admitted As Inpatient Print Language: Wolof
[2025-01-02 15:59] LABS: MANUAL DIFF FLAG NO
[2025-01-02 16:01] LABS: Basophils Absolute Auto 0.1 X10*3/uL (0.0-0.2); Basophils Percent Auto 0.8 % (0-2); Eosinophils Percent Auto 0.3 % (0-4); Hematocrit 31.8 % (37.0-47.0); Hemoglobin 9.6 g/dl (12.0-16.0); Imm Gran Abs Auto 0.04 X10*3/uL (0.00-0.03); Imm Gran Pct Auto 0.6 % (0.0-0.4); Lymphocytes Absolute Auto 0.5 X10*3/uL (1.2-4.9); Lymphocytes Percent Auto 7.8 % (20-40); Mean Corpuscular HGB Conc 30.2 g/dl (31.0-35.0); Mean Corpuscular Hemoglobin 24.2 pg (27.0-33.0); Mean Corpuscular Volume 80.1 fL (80.0-98.0); Monocytes Absolute Auto 0.5 X10*3/uL (0.1-1.2); Monocytes Percent Auto 7.8 % (2-11); Neutrophils Absolute Auto 5.3 x10*3/uL (2.0-8.3); Neutrophils Percent Auto 82.7 % (45-73); Platelet Count 292 X10*3/uL (160-400); Red Blood Count 3.97 X10*6/uL (4.20-5.50); Red Cell Distribution Width 17.7 % (11.0-16.0); White Blood Count 6.4 X10*3/uL (4.8-10.8)
[2025-01-02] MEDS: Nitroglycerin 2 % Oint 1 GM Packet 0.5 INCH TRANSDERMA (16:09)
[2025-01-02] MEDS: Furosemide 40 MG/4 ML VIAL IVPUSH (16:10)
[2025-01-02 16:25] LABS: B Type Natriuretic Peptide 997 pg/mL (<100)
[2025-01-02 16:37] LABS: Influenza A PCR NEGATIVE (Negative); Influenza B PCR NEGATIVE (Negative); Resp Syncy Virus RNA Qual PCR NEGATIVE (Negative); SARS COV2 PCR INHOUSE NEGATIVE (Negative)
[2025-01-02 16:57] LABS: Alanine Aminotransferase 32 U/L (0-31); Albumin Level 3.5 g/dL (3.5-5.0); Anion Gap 12 (12-20); Aspartate Amino Transferase 51 U/L (5-31); Bilirubin Direct 0.4 mg/dL (0.0-0.5); Bilirubin Total 0.9 mg/dL (0.0-1.0); Blood Urea Nitrogen 45 mg/dL (9-16); Calcium 8.5 mg/dL (8.4-10.2); Carbon Dioxide 20 mmol/L (22-29); Chloride 112 mmol/L (96-108); Creatinine Clr Calc Pharmacy 34.4; Estimated Glomerular Filt Rate 40; Glucose Random 95 mg/dL (60-115); Magnesium 2.5 mg/dL (1.6-2.6); Potassium 4.4 mmol/L (3.3-5.1); Sodium 140 mmol/L (135-145); Total Protein 6.9 g/dL (6.5-8.0)
--- NOTE | 2025-01-02 17:35 | PHA.MEDREC ---
Addendum entered by Tanesha Kraus [facility] 01/02/25 18:01: [facility] reviewed. Questioned verapamil and patient said she is no longer taking it anymore Original Note: Pharmacy Consult ? Medication Reconciliation Pharmacy has completed the medication reconciliation. Spoke with patient and she confirmed her medications. She confirmed she takes her Furosemide 20mg tab as needed for swelling and still has some at home. She confirmed she took her Xarelto 20mg tab this morning and everything else was taken last night.
[2025-01-02] MEDS: Amoxicillin/Potassium Clav 875 MG TABLET PO (17:44)
--- NOTE | 2025-01-02 18:35 | PM.IMHP ---
History of Present Illness Date of Service: 01/02/25 Chief Complaint: Dyspnea A 79 years old lady with PMH of HFpEF, severe aortic stenosis, pulmonary hypertension, HCM s/p septal ablation, heart block s/p ppm 2013, CAD, AFib on Xarelto, mild asthma, chronic anemia, history of DVT/PE, history of GI bleed, who presented to the this morning with worsening shortness of breath and dyspnea. The patient reports worsening SOB and facial pain for the last few days. she used to walk short distences before developing dyspnea but she has been doing much worse the last 2 days with associated SOB on exertion and orthopnea with worsening lower extremities edema. she has been taking her Lasix as needed. vague about how much. she reports sinus congestion and pain. No chest pain, palpitations, nausea, vomiting, diarrhea or urinary symptoms. In ED noticed to be hypoxic to 88% with minimal ambulation. CXR showed mild fluid overload and BNP elevated. Admitted for further evaluation and treatment. Review of Systems Review of Systems: No fever, chills or weakness No chest pain, palpitation having shortness of breath or coughing No abdominal pain, nausea or vomiting No urinary symptoms No any rash or wounds [facility] Medical History Aortic stenosis Aortic stenosis, severe History of complete heart block History of blood transfusion History of GI bleed Personal history of COVID-19 Cervical disc disorder Hx of pulmonary embolus History of DVT (deep vein thrombosis) Anemia Asthma Non-rheumatic aortic stenosis Edema, peripheral Congestive heart failure Hypertrophic cardiomyopathy Pulmonary hypertension Obesity Paroxysmal atrial fibrillation Cardiac pacemaker in situ (~2013) CAD (coronary artery disease) (HFpEF) heart failure with preserved ejection fraction Family History Father No problems noted. Mother CVD (cardiovascular disease) Surgical History Status post transcatheter aortic valve replacement History of cardiac cath History of heart surgery History of elbow surgery History of cardioversion History of permanent cardiac pacemaker placement Social History Household Members: Children Household Members Other:: son Housing: House Are you a primary women's health care nurse practitioner to a significant other at home: No Do you presently have visiting nurse or other home services: No Alcohol intake: current Alcohol intake frequency: holidays/special occasions only Alcohol type: wine Comment: Uses scooter Patient Tobacco Use Status: Former Tobacco user Tobacco use type: Cigarette Second Hand Smoke Exposure: No Advance Directives: Yes Advance Directives on File: Yes Advance Directives Date on File: 09/02/24 Do you have a plan to hurt others: No Plan service: No Current occupational status: employed Meds Allergies Allergy/AdvReac Type Severity Reaction Status Date / Time latex Allergy Mild Redness of Verified 01/02/25 15:11 Skin seasonal Allergy Mild Itchy Eyes Uncoded 01/02/25 15:11 Home Medications ?Medication ?Instructions ?Recorded ?Confirmed ?Last Taken ?Type albuterol sulfate 90 mcg/actuation 2 puff PO Q4H PRN Shortness Of 12/17/20 01/02/25 Unknown History aerosol inhaler Breath montelukast 10 mg tablet 10 mg PO BEDTIME 12/17/20 01/02/25 01/01/25 History rivaroxaban 20 mg tablet 20 mg PO DAILY 12/17/20 01/02/25 01/02/25 History acetaminophen 325 mg tablet 650 mg PO Q4H PRN Pain 09/02/24 01/02/25 Unknown History aspirin 81 mg tablet,delayed 81 mg PO BEDTIME 11/15/24 01/02/25 01/01/25 History release (Adult Aspirin Regimen) furosemide 40 mg tablet 40 mg PO DAILY PRN swelling 11/15/24 01/02/25 11/22/24 History amlodipine 10 mg tablet 5 mg PO BEDTIME 01/02/25 01/02/25 01/01/25 History Physical Exam Vital Signs and Narrative: Vital Signs: Last Vital Signs Temp 97.7 F 01/02/25 17:45 Pulse 70 01/02/25 17:45 Resp 20 01/02/25 17:45 BP 131/69 01/02/25 17:45 Pulse Ox 94 01/02/25 17:45 O2 Del Method Room Air 01/02/25 17:45 BMI result Body Mass Index 20.7 Const: Other: Constitutional : Awake, interactive, not in distress Neck : Normal inspection, Supple Cardiovascular : RRR, no JVP, +2 lower extremity edema Respiratory : decrease bilateral air entry, basal crackles Gastrointestinal: soft, lax, Normal bowel sounds, Non tender Skin : Warm, Dry Neurological : Alert & oriented x3, No focal deficit Results Labs 01/02/25 15:54 01/02/25 15:54 Labs: Laboratory Results - last 24 hr 01/02/25 15:54 MCV 80.1 MCH 24.2 L MCHC 30.2 L RDW 17.7 H Plt Count 292 MPV 9.0 L Immature Gran % (Auto) 0.6 H Neut % (Auto) 82.7 H Lymph % (Auto) 7.8 L Jones % (Auto) 7.8 Eos % (Auto) 0.3 Baso % (Auto) 0.8 Lymph # (Auto) 0.5 L [place] # (Auto) 0.5 Eos # (Auto) 0.0 Baso # (Auto) 0.1 Abs Immat Gran (auto) 0.04 H Absolute Neuts (auto) 5.3 Absolute Nucleated RBC 0.000 Nucleated RBC % (auto) 0.0 Anion Gap 12 Estim Creat Clear Calc 34.4 Estimated GFR 40 Random Glucose 95 Calcium 8.5 D Magnesium 2.5 Total Bilirubin 0.9 Direct Bilirubin 0.4 AST 51 H ALT 32 H B-Natriuretic Peptide 997 H Total Protein 6.9 Albumin 3.5 Influenza Type A (PCR) NEGATIVE Influenza Type B (PCR) NEGATIVE RSV RNA Qual (PCR) NEGATIVE SARS-CoV-2 RNA (RT-PCR) NEGATIVE Imaging Radiologist's Impressions: Impressions Chest X-Ray 01/02/25 15:43 IMPRESSION: Cardiomegaly. Probable small left pleural effusion. Underlying atelectasis or pneumonia at the left base is not excluded. Electronically signed by: Gavino Johansen MD 01/02/2025 03:54 PM [facility] Assessment and Plan (1) Acute sinusitis: Status: Acute (2) Edema of both lower extremities: Status: Acute (3) Congestive heart failure: Status: Acute (4) Physical deconditioning: Status: Acute (5) Pneumonia: Status: Acute Plan A 79 years old lady with PMH of HFpEF, severe aortic stenosis, pulmonary hypertension, HCM s/p septal ablation, heart block s/p ppm 2013, CAD, AFib on Xarelto, mild asthma, chronic anemia, history of DVT/PE, history of GI bleed, who presented to the this morning with worsening shortness of breath and dyspnea. Hypoxia 2/2 Acute diastolic CHF exacerbation BNP elevated CXR reporting effusion on left side start IV lasix I\O follow BNP pneumonia, not septic CXR LLL infiltrates Incentive PO Augmentin for now. will cover sinus infection as well Paroxysmal atrial fibrillation Continue amiodarone and Xarelto Mild intermittent asthma Continue albuterol, Singulair History of PE Continue Xarelto PT eval Full code the patient will need 2 overnight hospital stay for treatment of pneumonia and CHF exacerbation on IV lasix pending weaning Off O2. Quality Stroke Does the patient have a stroke diagnosis?: No VTE Prior VTE?: No VTE Risk Level:: Medical - moderate - high VTE Device Contraindication: Treatment Not Indicated VTE Drug Contraindication: N/A - Med Ordered
--- OUTSIDE RECORDS SUMMARY | 2025-01-02 18:37 | XMS_ITS ---
Author Organization Jeroem Guido MD Address [address] [place], [place] [id number] Care Team Providers Care Server Assistant Name Role Phone Jerome Guido Primary Care Provider Allergies No Known Allergies REASON FOR VISIT 4 WEEK F/U, AWV Medications Medication SIG (Take, Route, Frequency, Duration) Notes Start Date End Date Status Amiodarone HCl 200 MG 1 tablet Orally On a day Active ProAir HFA 108 (90 Base) MCG/ACT 2 puffs as needed Inhalation every 4 hrs for 30 days 09/11/2015 Not-Taking Aspirin 81 81 MG 1 tablet Orally Once a day for 30 day(s) Active Montelukast Sodium 10 MG TAKE 1 TABLET B Y MOUTH EVERY DAY for 90 Active amLODIPine Besylate 10 MG 0.5 tablet Ora lly Once a day Active Xarelto 20 MG TAKE 1 TABLET BY ALANNA TH EVERY DAY WITH FOOD Orally Once a day for 90 days Active Ventolin HFA 108 (90 Base) MCG/ACT INHALE 2 PUFFS BY MOUTH EVERY 4 HOURS NEEDED for 16 Not-Taking Furosemide 20 MG 1 tablet by mouth ev oskar day Orally Once a day Not-Taking Advair Diskus 250-50 MCG/DOSE INHALE 1 PUFF BY MOUTH TWICE DAILY for 30 Not-Taking Ferrous Sulfate 324 (65 Fe) MG 1 tablet Orally twice a day Not-Taking Albuterol Sulfate HFA 108 (90 Base) MCG/ACT INHALE 1 PUFF BY MOUTH EVERY 4 HOURS NEEDED for 33 Active Vital Signs Height 66 in 01/02/2025 Encounters Encounter Location Date Provider Diagnosis Jerome Guido MD [address] [place], [place] [id number] 01/02/2025 Jerome Guido Encounter for Medicare annual wellness exam V70.0 and IHSS (idiopathic hypertrophic subaortic stenosis) I42.1 Assessments Encounter Date Diagnosis (ICD Code) Assessment Notes Treatment Notes Treatment Clinical Notes Section Notes 01/02/2025 Encounter for Medicare annual wellness exam (ICD9-CM - V70.0) 01/02/2025 IHSS (idiopathic hypertrophic subaortic stenosis) (ICD-10 - I42.1) will transfer by ambulance to the [facility] Plan Of Treatment Treatment Notes Assessment Notes IHSS (idiopathic hypertrophi c subaortic stenosis) will transfer by ambulance to the hospital Next Appt Details Follow Up: 1 Year, Reason: A [place] Provider Name:Jerome francoisr, 01/04/2026 01:45:00 PM, [address] [place] [address] Drive, [address], [place], [place], [id number], Progress Notes * Sophie VIDAL EDOB: [birth year] (79 yo F)Acc No.[id number]:01/02/2025 Progress Note Patient:?Sophie VIDAL E Provider:?Jerome Guido MD :1945???Age:79 Y???Sex:Female D ate:01/02/2025 Address:[address] [place], [place] [address] [id number] Subjective: * Chief Complaints: * ???1. 4 WEEK F/U, AWV. * HPI: ???Depression Screening:?PHQ-9?Little interest or pleasure in doing things?Several days,?Feeling down, depressed, or hopeless?Several days,?Trouble falling or staying asleep, or sleeping too much?Several days,?Feeling tired or having little energy?Several days,?Poor appetite or overeating?Not at all,?Feeling bad about yourself or that you are a failure, or have let yourself or your family down?Several days,?Trouble concentrating on things, such as reading the newspaper or watching television?Not at all,?Moving or speaking so slowly that other people could have noticed; or the opposite, being so fidgety or restless that you have been moving around a lot more than usual?Not at all,?Thoughts that you would be better off or of hurting yourself in some way?Not at all,?Total Score?5,?Interpretation?Mild Depression.?patient present very short of breath with grunting resprations. said she is a little better than last night but had a very difficult night. ???Communication Needs:?Communication Needs?Does the patient have a hearing impairment?No,?Does the patient have a vision impairment??Yes,?If yes, what is the vision impairment??Glasses,?Does the patient have a cognition impairment??No.?Fall Risk:?History?Have you had any falls with injury in the past year??No,?Have you had two or more falls in the past year??No.?SDOH Questions:?SDOH Questions?In the past year have you been worried about losing housing??No,?In the past year have you or any family members you live with been unable to get any of the following when it was really needed? Check all that apply:?None.?Annual Wellness Visit:?c/o of?Annual Wellness Visit , Annual Wellness Visit , Annual Wellness Visit.?Medical / Social History Reviewed?The following items were reviewed and updated during today's visit?Past Medical History, [place] of Care, Surgical/Hospitalization History, Current medications including OTC and supplements, Family History, Tobacco use, Alcohol use, Illicit drug use.?Home Safety?Throw rugs??No,?Grab bars??Yes,?Raised toilet seats??No,?Working smoke detectors??Yes,?Working carbon monoxide detectors??Yes.?Activities of Daily Living (ADLs)?Difficulty bathing or showering??No,?Difficulty dressing??No,?Difficulty using the toilet??No,?Difficulty getting in and out of bed??No,?Difficulty walking??No,?Receives help from another person with any of the above?No.?End-of-Life Planning?End of Life Planning?Not needed.?Answers for HPI/ROS submitted by the patient?Change in Weight?No,?Change in hearing?No.?HRA filled out by the patient, reviewed by Provider and scanned. * ROS:?General/Constitutional:?Denies?Chills.?Denies?Fatigue.?Denies?Fever.?Denies?Headache.?ENT:?Denies?Sinus pain.?Respiratory:?Denies?Cough.?Denies?Shortness of breath at rest.?Denies?Shortness of breath with exertion.?Cardiovascular:?Patient complaining of?dyspnea on exertion.?Gastrointestinal:?Denies?Diarrhea.?Denies?Nausea.? * Medical History:?[place] [phone] cardio dante rory., 01/27/14 no GLASS CHECKER & no mammos in years, Upper endo march 2018. * Family History:?Father: dece ased, family history unknown .?Mother: 76 yrs, cardiac disease.?2 son(s) . .? Mother-[place]. * Social History:?Tobacco Use:?Tobacco Use/Smoking?Patient is a: nonsmoker.?Drugs/Alcohol:?Alcohol Screen?Points: 1, Interpretation: Negative.?Miscellaneous:?Caffeine: yes, frequency:. Children: yes. Exercise: yes, Physical Therapy at home. Home smoke detector use: yes. Living with: alone. Travel outside of the [place]: no. * Medications:?Taking Aspirin 81 81 MG Tablet Delayed Release 1 tablet Orally Once a day , Taking amLODIPine Besylate 10 MG Tablet 0.5 tablet Orally Once a day , Taking Montelukast Sodium 10 MG Tablet TAKE 1 TABLET BY MOUTH EVERY DAY , Taking Albuterol Sulfate HFA 108 (90 Base) MCG/ACT Aerosol Solution INHALE 1 PUFF BY MOUTH EVERY 4 HOURS NEEDED , Taking Xarelto 20 MG Tablet TAKE 1 TABLET BY MOUTH EVERY DAY WITH FOOD Orally Once a day , Taking Amiodarone HCl 200 MG Tablet 1 tablet Orally Once a day , Not-Taking/PRN Furosemide 20 MG Tablet 1 tablet by mouth every day Orally Once a day , Not-Taking/PRN Ventolin HFA 108 (90 Base) MCG/ACT Aerosol Solution INHALE 2 PUFFS BY MOUTH EVERY 4 HOURS NEEDED , Not-Taking/PRN Ferrous Sulfate 324 (65 Fe) MG Tablet Delayed Release 1 tablet Orally twice a day , Not-Taking/PRN Advair Diskus 250-50 MCG/DOSE Aerosol Powder Breath Activated INHALE 1 PUFF BY MOUTH TWICE DAILY , Not-Taking/PRN ProAir HFA 108 (90 Base) MCG/ACT Aerosol Solution 2 puffs as needed Inhalation every 4 hrs * Allergies:?N.K.D.A. Objective: * Vitals:?Ht: 66. * Examination: ???AWV: ?Balance?.?Hearing?.?EKG? Not clinically necessary.?Written plan?Completed.?General Examination: ?GENERAL APPEARANCE:?initally with grunting respirations that slowed down after her sitting for a few minutes..?SKIN:?good turgor, warm and dry.?HEART:?irregularly irregular rhythm with pulse of 90.?LUNGS:?no wheezes, rales, rhonchi, good air movement, clear to auscultation bilaterally.? Assessment: * Assessment: 1.?Encounter for Medicare an nual wellness exam - V70.0 (Primary)???2.?IHSS (idiopathic hypertrophic subaortic stenosis) - I42.1??? Plan: * Treatment: * Procedure Codes:?G0438 YOUNG PEGUERO VST; PERSNL PPS INIT, G0439 ANNUAL WELLNESS VST; PPS SUBSQT VST * Preventive Medicine:? ??Counseling:?Care goal follow-up plan:?Counseling for abnormal BMI provided?Yes,?Above Normal BMI Follow-up?Dietary management education, guidance, and counseling, Dietary needs education, Giving encouragement to exercise.?Exercise?.?Communication to patient:?Counseling for nutrition provided?Yes,?Counseling for physical activity provided?Yes.?Social:?diet:?Discussed the importance of eating a nutritious healthy food on a regular basis,?exercise:?Discussed the benefits of any exercise for overall health and well-being,?alcohol and drugs:?Discussed the dangers of excessive alcohol intake.? ??SCREENING:?Colonoscopy?Next screening is scheduled.?Mammogram?Annual Mammogram recommended pt will self schedule.? ??Immunizations:?Influenza?Have you had a flu shot since the most recent July 10??Yes.?Covid?patient vaccincated.? ??Screening/Special Tests:?Colonoscopy?.?Mammogram?.? * Follow Up:?1 Year (Reason: A [place]) * * The named appointment provid er may or may not be the originator of this progress note, and it is not deemed complete until electronically signed by the appointment provider. Sign off status: Pending * Provider:?Jerome Guido MD Date:?0 01/02/2025 Generated for Danyelle bentley/Satish/eTransmitting on:?01/02/2025 06:37 PM EST History and Physical Notes * HPI (History of Present Illness) Category Sub-Category Detail Notes Category Not es Depression Screening PHQ-9 Little inte rest or pleasure in doing things: Several days patient present very short of breath with grunting resprations. said she is a little better than last night but had a very difficult night. Feeling down, depressed, or hopeless: Se veral days Trouble falling or staying asleep, or sl eeping too much: Several days Feeling tired or having little energy: S everal days Poor appetite or overeating: Not at all Feeling bad about yourself o r that you are a failure, or have let yourself or your family down: Several days Trouble concentrating on thi ngs, such as reading the newspaper or watching television: Not at all Moving or speaking so slowly that other people could have noticed; or the opposite, being so fidgety or restless that you have been moving around a lot more than usual: Not at all Thoughts that you would be b polo off or of hurting yourself in some way: Not at all Total Score: 5 Interpretation: Mild Depression SDOH Questions SDOH Questions In the past year have you been worried about losing housing?: No In the past year have you or any family members you live with been unable to get any of the following when it was really needed? Check all that apply:: None Fall Risk History Have you had any falls with injury i n the past year?: No Have you had two or more falls in the st year?: No Communication Needs Communication Needs Does the patient have a hearing impairment: No Does the patient have a vision impairmen t?: Yes ?If yes, what is the vision impairment?: Glasses Does the patient have a cognition impair ment?: No Annual Wellness Visit of Annual Wel lness Visit , Annual Wellness Visit , Annual Wellness Visit HRA filled out by the patient, reviewed by Provider and scanned. Medical / Social History Reviewed The fo terrellwing items were reviewed and updated during today's visit: Past Medical History, [place] of Care, Surgical/Hospitalization History, Current medications including OTC and supplements, Family History, Tobacco use, Alcohol use, Illicit drug use Home Safety Throw rugs?: No Grab bars?: Yes Raised toilet seats?: No Working smoke detectors?: Yes Working carbon monoxide detectors?: Yes Activities of Daily Living (ADLs) Difficulty bat josh or showering?: No Difficulty dressing?: No Difficulty using the toilet?: No Difficulty getting in and out of bed?: N o Difficulty walking?: No Receives help from another person with a ny of the above: No End-of-Life Planning End of Life Planning: Not n eeded Answers for HPI/ROS submitted by the patient Laisha yulisa in Weight: No Change in hearing: No Examination Category Sub-Category Detail Notes Category Not es General Examination GENERAL APPEARANCE: initally with grunting respirations that slowed down after her sitting for a few minutes. HEART: irregularly irregula r rhythm with pulse of 90 LUNGS: no wheezes, rales, r honchi, good air movement, clear to auscultation bilaterally SKIN: good turgor, warm an d dry AWV Balance Romberg: . Tandem walk: . Walk and Turn: . Rise from sit to stand: . Hearing Whisper test: . EKG Not clinically brynn thacker Written plan Completed
--- OUTSIDE RECORDS SUMMARY | 2025-01-02 18:38 | XMS_ITS ---
Author Organization Jerome Guido MD Address [address] [place], [place] [id number] Care Team Providers Care Fashion Artist Name Role Phone Jerome Guido Primary Care Provider [phone] Allergies No Known Allergies REASON FOR VISIT [...] Problem Status W/U Status Risk Notes Problem [id number] S/P TAVR (transcathet er aortic valve replacement) (Z95.2) Active confirmed Vital Signs Blood pressure systolic 102 mm Hg 11/17/19 25 Blood pressure diastolic 60 mm Hg 025 Height 66 in 11/17/2024 Weight 140 lbs 11/17/2024 BMI 22.59 kg/m2 11/17/2024 weight is up 6 pounds since 08-12-24 Encounters Encounter Location Date Provider Diagnosis Jerome Guido MD [address] [place], [place] [phone] 11/17/2024 Jerome Guido Chronic systolic congestive heart [...] Up: 4 Weeks, Reason: Provider Name:Jerome perez, 01/04/2026 01:45:00 PM, [address], [address], [place], [place], [id number], Progress Notes * Sophie VIDAL EDOB: [birth year] (78 yo F)Acc No.[id number]:11/17/2024 Patient:?Sophie Vidal Provider:?Jerome Guido MD :1945???Age:78 Y???Sex:Female D ate:11/17/2024 Address:[address] [place] [address] [place] [id number] Subjective: * Chief Complaints: * ???PH/ TCM * HPI: ???Symptom(s):? patient is a 78 yo female here for transitional care management visit for [facility] recent hospitalization, discharge summary has been reviewed and medications reconcilled. got afib after surgery and is getting cardioversion next week.. [facility] lost them in hospital for 4 hours/ [...] MD Date:?0 11/17/2024 Generated for Danyelle bentley/Satish/Reneitting on:?01/02/2025 06:37 PM EST History and Physical Notes * HPI (History of Present Illness) Category Sub-Category Detail Notes Category Not es Symptom(s) patient is a 78 yo female here for transitional care management visit [facility] recent hospitalization, discharge summary has been reviewed and medications reconcilled. got afib after surgery and is getting cardioversion next week.. [facility] lost them in hospital for 4 hours/ sent them to a room and they couldn't find them for 4 hours Examination Category Sub-Category Detail Notes Category Not es General Examination GENERAL APPEARANCE: well developed , well nourished HEAD: normocephalic HEART: regular rate and rhy thm , no murmurs, rubs, gallops SKIN: good turgor EXTREMITIES: no edema
--- OUTSIDE RECORDS SUMMARY | 2025-01-02 18:38 | XMS_ITS ---
Author Organization Jerome Guido MD Address [address] [place] [id number] Care Team Providers Care Farmworker Livestock Name Role Phone Jerome Guido Primary Care Provider REASON FOR VISIT Discharge summary rec'd from [facility] Encounters Encounter Location Date Provider Diagnosis Jerome Guido MD [address] [place] [phone] 11/01/2024 Jerome Guido Plan Of Treatment Next Appt Details Provider Name:Jerome Orosco ier, 01/04/2026 01:45:00 PM, [address], Suite [facility], [place], [place], [phone], Progress Notes * Sophie VIDAL EDOB: [birth year] (78 yo F)Acc No.[id number]:11/01/2024 Patient:?Sophie Vidal :1945???Age:78 Y???Sex:Female Address:[address] [place] [address] [facility] [place] * true * Date:? Generated for Danyelle bentley/Satish/Sigrid on:?01/02/2025 06:37 PM EST
[2025-01-02 18:59] LABS: Alkaline Phosphatase 161 U/L (39-117)
[2025-01-02 19:43] LABS: Troponin-I High Sensitivity 11.7 ng/L (<3.5-17.0)
[2025-01-02] MEDS: Montelukast Sodium 10 MG TABLET PO (21:16)
[2025-01-02] MEDS: Aspirin Enteric Coated 81 MG TABLET.DR PO (21:16)
[2025-01-02] MEDS: amLODIPine Besylate 5 MG TABLET PO (21:16)
[2025-01-03] VITALS (12 sets, daily range): BP systolic 97–128; BP diastolic 56–71; PULSE 69–79; RESP 14–20; TEMP 36.4–36.9; O2SAT 93–100
[2025-01-03] MEDS: 0.9 % Sodium Chloride Flush 3 ML SYRINGE IVFLUSH (00:36)
[2025-01-03] MEDS: Albuterol Sulfate 90 MCG 8 GM INHALER 2 PUFF INHALE (02:44)
--- NOTE | 2025-01-03 02:45 | PC.NURSE ---
patient reporting increased shortness of breath, O2 92 % RA patient repositioned and 2L NC applied O2 up to 99%
[2025-01-03 05:24] LABS: Anion Gap 12 (12-20); Blood Urea Nitrogen 42 mg/dL (9-16); Calcium 7.9 mg/dL (8.4-10.2); Carbon Dioxide 22 mmol/L (22-29); Chloride 113 mmol/L (96-108); Estimated Glomerular Filt Rate 42; Glucose Random 88 mg/dL (60-115); Potassium 3.9 mmol/L (3.3-5.1); Sodium 143 mmol/L (135-145)
[2025-01-03 05:36] LABS: B Type Natriuretic Peptide 1059 pg/mL (<100)
--- NOTE | 2025-01-03 09:00 | PC.NURSE ---
assumed care of patient at 0700, patient is awake, alert and oriented x3. patient resp even and unlabored, skin dry and intact. patient remains on 3lNC. patient states she feels better/more comfortable with supplemental o2.
[2025-01-03] MEDS: Furosemide 40 MG/4 ML VIAL IVPUSH (09:03)
[2025-01-03] MEDS: Amiodarone HCL 200 MG TABLET PO (09:03)
[2025-01-03] MEDS: Amoxicillin/Potassium Clav 875 MG TABLET PO ×2 (09:03→21:18)
--- NOTE | 2025-01-03 09:56 | HO.PM.IMPN ---
Subjective Subjective Date of Service: 01/03/25 Interval History: seen and evaluated this morning feels better making good amount of urine still on O2 no other events Review of Systems Review of Systems: Yes all other systems are reviewed and are negative Physical Exam Vital Signs: Vital Signs: Last Vital Signs Temp 97.7 F 01/03/25 07:05 Pulse 79 01/03/25 07:05 Resp 14 01/03/25 07:05 BP 108/65 01/03/25 07:05 Pulse Ox 97 01/03/25 07:05 O2 Del Method Nasal Cannula 01/03/25 07:05 O2 Flow Rate 2 01/03/25 07:05 BMI result Body Mass Index 20.7 Const: Other: Constitutional : Awake, interactive, not in distress Neck : Normal inspection, Supple Cardiovascular : RRR, no JVP, +2 lower extremity edema Respiratory : decrease bilateral air entry, basal crackles Gastrointestinal: soft, lax, Normal bowel sounds, Non tender Skin : Warm, Dry Neurological : Alert & oriented x3, No focal deficit Objective Data Active Medications Albuterol Sulfate (Albuterol Sulfate 90 Mcg 8 Gm Inhaler) 2 puff INHALE Q4H PRN PRN Reason: Shortness Of Breath Last Admin: 01/03/25 02:44 Dose: 2 puff Documented By: JHONY Amiodarone HCl (Amiodarone Hcl 200 Mg Tablet) 200 mg PO DAILY [facility] Last Admin: 01/03/25 09:03 Dose: 200 mg Documented By: MELIDA Amlodipine Besylate (Amlodipine Besylate 5 Mg Tablet) 5 mg PO BEDTIME [facility]; Protocol Last Admin: 01/02/25 21:16 Dose: 5 mg Documented By: JHONY Amoxicillin/Clavulanate Potassium (Amoxicillin/Potassium Clav 875 Mg Tablet) 875 mg PO BID [facility] Last Admin: 01/03/25 09:03 Dose: 875 mg Documented By: MELIDA Aspirin (Aspirin Enteric Coated 81 Mg Tablet.) 81 mg PO BEDTIME [facility] Last Admin: 01/02/25 21:16 Dose: 81 mg Documented By: JHONY Calcium Carbonate (Calcium Carbonate 750 Mg Tab.Chew) 750 mg PO Q4H PRN PRN Reason: Heartburn Furosemide (Furosemide 40 Mg/4 Ml Vial) 40 mg IVPUSH DAILY [facility]; Protocol Last Admin: 01/03/25 09:03 Dose: 40 mg Documented By: MELIDA Magnesium Hydroxide (Milk Of Magnesia 30 Ml Oral.Susp) 30 ml PO DAILY PRN PRN Reason: Constipation Melatonin (Melatonin 3 Mg Tablet) 6 mg PO BEDTIME PRN PRN Reason: Insomnia Montelukast Sodium (Montelukast Sodium 10 Mg Tablet) 10 mg PO BEDTIME [facility] Last Admin: 01/02/25 21:16 Dose: 10 mg Documented By: JHONY Ondansetron HCl (Ondansetron Hcl 4 Mg/2 Ml Vial) 4 mg IVPUSH Q8H PRN PRN Reason: Nausea and Vomiting Rivaroxaban (Rivaroxaban 20 Mg Tablet) 20 mg PO DAILY@1700 TONI Sodium Chloride (0.9 % Sodium Chloride Flush 3 Ml Syringe) 3 ml IVFLUSH QSHIFT [facility] Last Admin: 01/03/25 07:08 Dose: Not Given Documented By: MELIDA Non-Admin Reason: See Note Labs 01/02/25 15:54 01/03/25 04:16 Labs: Laboratory Results - last 24 hr 01/02/25 01/03/25 15:54 04:16 MCV 80.1 MCH 24.2 L MCHC 30.2 L RDW 17.7 H Plt Count 292 MPV 9.0 L Immature Gran % (Auto) 0.6 H Neut % (Auto) 82.7 H Lymph % (Auto) 7.8 L Davidson % (Auto) 7.8 Eos % (Auto) 0.3 Baso % (Auto) 0.8 Lymph # (Auto) 0.5 L Davidson # (Auto) 0.5 Eos # (Auto) 0.0 Baso # (Auto) 0.1 Abs Immat Gran (auto) 0.04 H Absolute Neuts (auto) 5.3 Absolute Nucleated RBC 0.000 Nucleated RBC % (auto) 0.0 Anion Gap 12 12 Estim Creat Clear Calc 34.4 36.0 Estimated GFR 40 42 Random Glucose 95 88 Calcium 8.5 D 7.9 L D Magnesium 2.5 Total Bilirubin 0.9 Direct Bilirubin 0.4 AST 51 H ALT 32 H Alkaline Phosphatase 161 H B-Natriuretic Peptide 997 H 1059 H Total Protein 6.9 Albumin 3.5 Influenza Type A (PCR) NEGATIVE Influenza Type B (PCR) NEGATIVE RSV RNA Qual (PCR) NEGATIVE SARS-CoV-2 RNA (RT-PCR) NEGATIVE Assessment and Plan (1) Pneumonia: Status: Acute (2) Acute sinusitis: Status: Acute (3) Edema of both lower extremities: Status: Acute (4) Congestive heart failure: Status: Acute Plan A 79 years old lady with PMH of HFpEF, severe aortic stenosis, pulmonary hypertension, HCM s/p septal ablation, heart block s/p ppm 2013, CAD, AFib on Xarelto, mild asthma, chronic anemia, history of DVT/PE, history of GI bleed, who presented to the this morning with worsening shortness of breath and dyspnea. Hypoxia 2/2 Acute diastolic CHF exacerbation BNP elevated CXR reported effusion on left side continue IV lasix I\O follow BNP pneumonia, not septic CXR LLL infiltrates Incentive spirometry PO Augmentin for now. will cover sinus infection as well Paroxysmal atrial fibrillation Continue amiodarone and Xarelto Mild intermittent asthma Continue albuterol, Singulair History of PE Continue Xarelto PT eval Full code the patient will need overnight hospital stay for treatment of pneumonia and CHF exacerbation on IV lasix pending weaning Off O2. Quality Stroke Does the patient have a stroke diagnosis?: No VTE Prior VTE?: No VTE Risk Level:: Medical - moderate - high VTE Device Contraindication: Treatment Not Indicated VTE Drug Contraindication: N/A - Med Ordered
--- NOTE | 2025-01-03 11:54 | MHC.CM.PN ---
CM met with Patient at bedside and addressed IMM with her, providing Patient with the original and a copy will be placed on the chart. Patient lives alone on the first floor of a two family house and her Son/HCP/Michael lives on the second floor.Home/new [facility]NA is the Patient's goal and CM has initiated and will follow for dc planning. PCP is Dr. Jerome Guido and Son will transport to home at time of dc.
--- NOTE | 2025-01-03 13:30 | PC.NURSE ---
Addendum entered by Lucía Guevara RN 01/03/25 15:59: *lunch Original Note: patient sat up and ate breakfast, resp even and unlabored. patient requested tea- tea given.
[2025-01-03] MEDS: Rivaroxaban 20 MG TABLET PO (16:53)
[2025-01-03] MEDS: Aspirin Enteric Coated 81 MG TABLET.DR PO (21:18)
[2025-01-03] MEDS: amLODIPine Besylate 5 MG TABLET PO (21:18)
[2025-01-03] MEDS: Montelukast Sodium 10 MG TABLET PO (21:18)
--- NOTE | 2025-01-03 21:21 | PC.NURSE ---
complete bed change, romel care, repositioned for comfort and medicated per mar. call vance given to pt.
[2025-01-04] VITALS (7 sets, daily range): BP systolic 114–144; BP diastolic 66–78; PULSE 69–77; RESP 16–22; TEMP 36.2–36.8; O2SAT 95–100
[2025-01-04 05:38] LABS: Anion Gap 11 (12-20); Blood Urea Nitrogen 31 mg/dL (9-16); Calcium 7.9 mg/dL (8.4-10.2); Carbon Dioxide 24 mmol/L (22-29); Chloride 111 mmol/L (96-108); Creatinine Clr Calc Pharmacy 41.5; Estimated Glomerular Filt Rate 49; Glucose Random 92 mg/dL (60-115); Potassium 4.2 mmol/L (3.3-5.1); Sodium 142 mmol/L (135-145)
[2025-01-04 05:45] LABS: B Type Natriuretic Peptide 672 pg/mL (<100)
--- NOTE | 2025-01-04 06:08 | MHC.EDTECH ---
Patient suction canister changed out @ 0608 with 650mL of urine. new canister in place
--- NOTE | 2025-01-04 06:09 | MHC.EDTECH ---
patient bedding and gown solid. This tech and RN changed and cleaned patient. new purwick in place. patient in position of comfort and call vance within reach.
[2025-01-04] MEDS: 0.9 % Sodium Chloride Flush 3 ML SYRINGE IVFLUSH ×2 (06:16→17:14)
--- NOTE | 2025-01-04 06:46 | PC.NURSE ---
pt bed change and hospital attire, mauro abbott replaced, pt reposition for comfort.
--- NOTE | 2025-01-04 06:47 | PC.NURSE ---
pt sleeping during the nignt now sign of distress.
--- NOTE | 2025-01-04 08:39 | MHC.EDTECH ---
ambulate trial the pt with use of walker, unsuccessful pt stated she was dizzy, two steps foward stated i'm going to pass out Pt was safely place on the bed. back on electronic device monitor. Oxygen on room air 93.
[2025-01-04] MEDS: Amoxicillin/Potassium Clav 875 MG TABLET PO ×2 (10:03→20:55)
--- NOTE | 2025-01-04 10:10 | PC.NURSE ---
ambulation trial completed by tech. pt taken off of 2L via NC/placed on RA for ambulation trial. pt took approximately 3 steps on RA when she was noted to desat to 93% on RA c/o increased dizziness. pt assisted back into bed. turned/repositioned to comfort. positioned upright to promote patent airway. no sob/wob noted. respirations even/unlabored. admitting provider notified/aware. BP medication/lasix held at this time d/t pt being symptomatic. plan of care ongoing.
--- NOTE | 2025-01-04 15:12 | HO.PM.IMPN ---
Subjective Subjective Date of Service: 01/04/25 Interval History: seen and evaluated this morning feels better but dizzy upon standing up made good amount of urine still on O2 no other events Review of Systems Review of Systems: Yes all other systems are reviewed and are negative Physical Exam Vital Signs: Vital Signs: Last Vital Signs Temp 97.7 F 01/04/25 10:03 Pulse 70 01/04/25 10:03 Resp 18 01/04/25 10:03 BP 126/66 01/04/25 10:03 Pulse Ox 98 01/04/25 10:03 O2 Del Method Room Air 01/04/25 10:03 O2 Flow Rate 2 01/04/25 07:56 BMI result Body Mass Index 20.7 Const: Other: Constitutional : Awake, interactive, not in distress Neck : Normal inspection, Supple Cardiovascular : RRR, no JVP, trace lower extremity edema Respiratory : improved bilateral air entry, fine basal crackles, on O2 supplement Gastrointestinal: soft, lax, Normal bowel sounds, Non tender Skin : Warm, Dry Neurological : Alert & oriented x3, No focal deficit Objective Data Active Medications Albuterol Sulfate (Albuterol Sulfate 90 Mcg 8 Gm Inhaler) 2 puff INHALE Q4H PRN PRN Reason: Shortness Of Breath Last Admin: 01/03/25 02:44 Dose: 2 puff Documented By: JHONY Amiodarone HCl (Amiodarone Hcl 200 Mg Tablet) 200 mg PO DAILY [facility] Last Admin: 01/04/25 09:35 Dose: Not Given Documented By: LUANNE Non-Admin Reason: Physician Held Med Amlodipine Besylate (Amlodipine Besylate 5 Mg Tablet) 5 mg PO BEDTIME [facility]; Protocol Last Admin: 01/03/25 21:18 Dose: 5 mg Documented By: MULU Amoxicillin/Clavulanate Potassium (Amoxicillin/Potassium Clav 875 Mg Tablet) 875 mg PO BID [facility] Last Admin: 01/04/25 10:03 Dose: 875 mg Documented By: LUANNE Aspirin (Aspirin Enteric Coated 81 Mg Tablet.Dr) 81 mg PO BEDTIME [facility] Last Admin: 01/03/25 21:18 Dose: 81 mg Documented By: MULU Calcium Carbonate (Calcium Carbonate 750 Mg Tab.Chew) 750 mg PO Q4H PRN PRN Reason: Heartburn Magnesium Hydroxide (Milk Of Magnesia 30 Ml Oral.Susp) 30 ml PO DAILY PRN PRN Reason: Constipation Melatonin (Melatonin 3 Mg Tablet) 6 mg PO BEDTIME PRN PRN Reason: Insomnia Montelukast Sodium (Montelukast Sodium 10 Mg Tablet) 10 mg PO BEDTIME [facility] Last Admin: 01/03/25 21:18 Dose: 10 mg Documented By: MULU Ondansetron HCl (Ondansetron Hcl 4 Mg/2 Ml Vial) 4 mg IVPUSH Q8H PRN PRN Reason: Nausea and Vomiting Rivaroxaban (Rivaroxaban 20 Mg Tablet) 20 mg PO DAILY@1700 [facility] Last Admin: 01/03/25 16:53 Dose: 20 mg Documented By: MELIDA Sodium Chloride (0.9 % Sodium Chloride Flush 3 Ml Syringe) 3 ml IVFLUSH QSHIFT [facility] Last Admin: 01/04/25 07:20 Dose: Not Given Documented By: LUANNE Non-Admin Reason: Patient Asleep Labs 01/02/25 15:54 01/04/25 04:32 Labs: Laboratory Results - last 24 hr 01/04/25 04:32 Anion Gap 11 L Estim Creat Clear Calc 41.5 Estimated GFR 49 Random Glucose 92 Calcium 7.9 L B-Natriuretic Peptide 672 H Assessment and Plan (1) Pneumonia: Status: Acute (2) Acute sinusitis: Status: Acute (3) Edema of both lower extremities: Status: Acute (4) Congestive heart failure: Status: Acute Plan A 79 years old lady with PMH of HFpEF, severe aortic stenosis, pulmonary hypertension, HCM s/p septal ablation, heart block s/p ppm 2013, CAD, AFib on Xarelto, mild asthma, chronic anemia, history of DVT/PE, history of GI bleed, who presented to the this morning with worsening shortness of breath and dyspnea. Hypoxia 2/2 Acute diastolic CHF exacerbation BNP elevated CXR reported effusion on left side Hold IV lasix for reported dizziness upon standing up check Orthostatic vitals I\O follow BNP pneumonia, not septic CXR LLL infiltrates Incentive spirometry PO Augmentin for now. will cover sinus infection as well Paroxysmal atrial fibrillation Continue amiodarone and Xarelto Mild intermittent asthma Continue albuterol, Singulair History of PE Continue Xarelto PT eval Full code the patient will need overnight hospital stay for treatment of pneumonia and CHF exacerbation on IV lasix pending weaning Off O2. Quality Stroke Does the patient have a stroke diagnosis?: No VTE Prior VTE?: No VTE Risk Level:: Medical - moderate - high VTE Device Contraindication: Treatment Not Indicated VTE Drug Contraindication: N/A - Med Ordered
[2025-01-04] MEDS: Rivaroxaban 20 MG TABLET PO (17:13)
[2025-01-04] MEDS: Montelukast Sodium 10 MG TABLET PO (20:55)
[2025-01-04] MEDS: amLODIPine Besylate 5 MG TABLET PO (20:55)
[2025-01-04] MEDS: Aspirin Enteric Coated 81 MG TABLET.DR PO (20:55)
[2025-01-05] VITALS (8 sets, daily range): BP systolic 116–148; BP diastolic 64–79; PULSE 68–73; RESP 12–20; TEMP 36.3–36.7; O2SAT 92–99
[2025-01-05 07:07] LABS: Alanine Aminotransferase 15 U/L (0-31); Albumin Level 3.3 g/dL (3.5-5.0); Alkaline Phosphatase 130 U/L (39-117); Anion Gap 11 (12-20); Aspartate Amino Transferase 18 U/L (5-31); Bilirubin Direct 0.4 mg/dL (0.0-0.5); Bilirubin Total 0.7 mg/dL (0.0-1.0); Blood Urea Nitrogen 22 mg/dL (9-16); Calcium 8.3 mg/dL (8.4-10.2); Carbon Dioxide 25 mmol/L (22-29); Chloride 111 mmol/L (96-108); Creatinine Clr Calc Pharmacy 53.5; Estimated Glomerular Filt Rate > 60; Glucose Random 108 mg/dL (60-115); Potassium 4.7 mmol/L (3.3-5.1); Sodium 142 mmol/L (135-145); Total Protein 6.4 g/dL (6.5-8.0)
[2025-01-05] MEDS: Amiodarone HCL 200 MG TABLET PO (08:42)
[2025-01-05] MEDS: Amoxicillin/Potassium Clav 875 MG TABLET PO ×2 (08:42→21:48)
[2025-01-05] MEDS: 0.9 % Sodium Chloride Flush 3 ML SYRINGE IVFLUSH ×4 (08:42→21:48)
--- NOTE | 2025-01-05 12:52 | HO.PM.IMPN ---
Subjective Subjective Date of Service: 01/05/25 Interval History: Overall feeling better, no sob and asking when she can go home Physical Exam Vital Signs: Vital Signs: Last Vital Signs Temp 97.5 F 01/05/25 10:52 Pulse 73 01/05/25 10:52 Resp 20 01/05/25 10:52 BP 116/64 01/05/25 10:52 Pulse Ox 99 01/05/25 10:52 O2 Del Method Nasal Cannula 01/05/25 10:52 O2 Flow Rate 2 01/05/25 10:52 BMI result Body Mass Index 20.7 Const: Other: General: AO X 3, no acute distress Resp: CTA bilateral CVS: S1,S2,RRR GI: +BS, NT, no distention Skin: No rash Neuro: motor grossly intact Psych: appropriate affect Objective Data Active Medications Albuterol Sulfate (Albuterol Sulfate 90 Mcg 8 Gm Inhaler) 2 puff INHALE Q4H PRN PRN Reason: Shortness Of Breath Last Admin: 01/03/25 02:44 Dose: 2 puff Documented By: JHONY Amiodarone HCl (Amiodarone Hcl 200 Mg Tablet) 200 mg PO DAILY [facility] Last Admin: 01/05/25 08:42 Dose: 200 mg Documented By: ASHISH Amlodipine Besylate (Amlodipine Besylate 5 Mg Tablet) 5 mg PO BEDTIME [facility]; Protocol Last Admin: 01/04/25 20:55 Dose: 5 mg Documented By: CARLOS Amoxicillin/Clavulanate Potassium (Amoxicillin/Potassium Clav 875 Mg Tablet) 875 mg PO BID [facility] Last Admin: 01/05/25 08:42 Dose: 875 mg Documented By: ASHISH Aspirin (Aspirin Enteric Coated 81 Mg Tablet.Dr) 81 mg PO BEDTIME [facility] Last Admin: 01/04/25 20:55 Dose: 81 mg Documented By: CARLOS Calcium Carbonate (Calcium Carbonate 750 Mg Tab.Chew) 750 mg PO Q4H PRN PRN Reason: Heartburn Magnesium Hydroxide (Milk Of Magnesia 30 Ml Oral.Susp) 30 ml PO DAILY PRN PRN Reason: Constipation Melatonin (Melatonin 3 Mg Tablet) 6 mg PO BEDTIME PRN PRN Reason: Insomnia Montelukast Sodium (Montelukast Sodium 10 Mg Tablet) 10 mg PO BEDTIME [facility] Last Admin: 01/04/25 20:55 Dose: 10 mg Documented By: CARLOS Ondansetron HCl (Ondansetron Hcl 4 Mg/2 Ml Vial) 4 mg IVPUSH Q8H PRN PRN Reason: Nausea and Vomiting Rivaroxaban (Rivaroxaban 20 Mg Tablet) 20 mg PO DAILY@1700 [facility] Last Admin: 01/04/25 17:13 Dose: 20 mg Documented By: LUANNE Sodium Chloride (0.9 % Sodium Chloride Flush 3 Ml Syringe) 3 ml IVFLUSH QSHIFT [facility] Last Admin: 01/05/25 08:42 Dose: 3 ml Documented By: ASHISH Labs 01/02/25 15:54 01/05/25 06:27 Labs: Laboratory Results - last 24 hr 01/05/25 06:27 Anion Gap 11 L Estim Creat Clear Calc 53.5 Estimated GFR > 60 Random Glucose 108 Calcium 8.3 L Total Bilirubin 0.7 Direct Bilirubin 0.4 AST 18 ALT 15 Alkaline Phosphatase 130 H Total Protein 6.4 L Albumin 3.3 L Assessment and Plan (1) Pneumonia: Status: Acute (2) Acute sinusitis: Status: Acute (3) Edema of both lower extremities: Status: Acute (4) Congestive heart failure: Status: Acute Plan A 79 years old lady with PMH of HFpEF, severe aortic stenosis, pulmonary hypertension, HCM s/p septal ablation, heart block s/p ppm 2013, CAD, AFib on Xarelto, mild asthma, chronic anemia, history of DVT/PE, history of GI bleed, who presented to the this morning with worsening shortness of breath and dyspnea. Acute hypoxic resp failure d/t CHF exacerbation, improved with IV diuretics. negative 3 L Add PO lasix, bmp ok, BP ok pneumonia, not septic CXR LLL infiltrates Incentive spirometry PO Augmentin for now. will cover sinus infection as well Paroxysmal atrial fibrillation Continue amiodarone and Xarelto Mild intermittent asthma Continue albuterol, Singulair History of PE Continue Xarelto PT recommends STR Full code the patient will need overnight hospital stay for treatment of pneumonia and CHF exacerbation on IV lasix pending weaning Off O2. Quality Stroke Does the patient have a stroke diagnosis?: No VTE Prior VTE?: No VTE Risk Level:: Medical - moderate - high VTE Device Contraindication: Treatment Not Indicated VTE Drug Contraindication: N/A - Med Ordered
--- NOTE | 2025-01-05 14:04 | MHC.CM.PN ---
Addendum entered by Karina Allen RN 01/05/25 15:50: [facility] OFFERING BED AND REQUESTING A 11AM DC TOMORROW 01/06, CM MET W/PT AND AGREEABLE REQUESTING CM LET THEM KNOW HER SON WILL TRANSPORT HER TO A 1PM APPT NEXT THURSDAY 01/11 AT [facility] AND WOULD LIKE CM TO CALL SON AND LET HIM KNOW WHERE SHE IS GOING TOMORROW. Original Note: P.T. RECOMMENDING STR, PT DOESN'T FEEL SHE CAN MANAGE WELL AMBULATING AT HOME, CM MET W/PT WHO REPORTS SHE WOULD BE AGREEABLE TO [facility], [facility] AND [facility]EN, REF SENT, CM WILL CONT TO FOLLOW DC NEEDS.
[2025-01-05] MEDS: Rivaroxaban 20 MG TABLET PO (18:32)
[2025-01-05] MEDS: amLODIPine Besylate 5 MG TABLET PO (21:48)
[2025-01-05] MEDS: Aspirin Enteric Coated 81 MG TABLET.DR PO (21:48)
[2025-01-05] MEDS: Montelukast Sodium 10 MG TABLET PO (21:48)
[2025-01-06 04:00] VITALS: BP 132/73; PULSE 68; RESP 16; TEMP 36.3; O2SAT 95
[2025-01-06 06:54] VITALS: BP 126/75; PULSE 71; RESP 18; TEMP 36.7; O2SAT 94
--- NOTE | 2025-01-06 09:26 | MHC.CM.PN ---
PT MEDICALLY CLEARED FOR DC TO STR AT [facility], CM CONTACTED PT'S SON/HCP HOMER AT NUMBER ON FILE AND PROVIDED HOMER W/NAME/ADDRESS/NUMBER OF FACILITY PER PT REQUEST, DEBBIE DELIVERED 01/05/25ROHAN FOR TRANSPORT AT 11AM, HOSPITALIST/NSG AWARE.
--- NOTE | 2025-01-06 10:45 | PM.DS ---
DS: Providers Provider Date of Service: 01/06/25 Date of admission: 01/02/25 18:33 Date of discharge: 01/06/25 Primary care physician: Jerome Guido MD DS: Diagnosis Discharge Diagnosis (1) Pneumonia: Status: Acute (2) Acute sinusitis: Status: Acute (3) Edema of both lower extremities: Status: Acute (4) Congestive heart failure: Status: Acute DS: Summary Hospital Course Hospital Course: Chief Complaint: Dyspnea A 79-year-old lady with a past medical history of HFpEF, severe aortic stenosis, pulmonary hypertension, HCM status post septal ablation, heart block status post PPM in 2013, CAD, AFib on Xarelto, mild asthma, chronic anemia, history of DVT/PE, and history of GI bleed, presented this morning with worsening shortness of breath and dyspnea. The patient reports worsening SOB and facial pain over the past few days. She was previously able to walk short distances but has been doing much worse in the last two days with associated SOB on exertion, orthopnea, and worsening lower extremity edema. She has been taking Lasix as needed but is vague about the dosage. She reports sinus congestion and pain but denies chest pain, palpitations, nausea, vomiting, diarrhea, or urinary symptoms. In the ED, she was noted to be hypoxic to 88% with minimal ambulation. CXR showed mild fluid overload, and BNP was elevated. She was admitted for further evaluation and treatment. Hospital Course: A 79-year-old lady with a past medical history of HFpEF, severe aortic stenosis, pulmonary hypertension, HCM status post septal ablation, heart block status post PPM in 2013, CAD, AFib on Xarelto, mild asthma, chronic anemia, history of DVT/PE, and history of GI bleed, presented this morning with worsening shortness of breath and dyspnea and was found to have pneumonia and acute heart failure exacerbation. Acute hypoxic respiratory failure due to CHF exacerbation and pneumonia improved with IV diuretics. Initially required oxygen but has been weaned off and is presently saturating at 94% on room air. Acute CHF with preserved EF was treated with IV Lasix, which has now been changed to oral Lasix at 40 mg daily. Pneumonia, not septic, along with sinusitis, has been treated with Augmentin with good effect. Will continue treatment for three more days. Paroxysmal atrial fibrillation, continue amiodarone and Xarelto. Hypertension, previously on Norvasc 10 mg, has been lowered to 5 mg daily in light of lower BP, dizziness, and initiation of Lasix. BP remains stable. Mild intermittent asthma, continue albuterol and Singulair. History of PE, continue Xarelto. PT recommends STR. Time Attestation Discharge Coordination Time (in mins): 45 Quality: Safe Use of Opioids Does Pt have an Active Cancer Diagnosis on the Problem List?: No Quality: Stroke Does the patient have a stroke diagnosis?: No Physical Exam Vital Signs: Vital Signs: Last Vital Signs Temp 98.1 F 01/06/25 06:54 Pulse 71 01/06/25 06:54 Resp 18 01/06/25 06:54 BP 126/75 01/06/25 06:54 Pulse Ox 94 01/06/25 06:54 O2 Del Method Room Air 01/06/25 06:54 O2 Flow Rate 2 01/05/25 10:52 BMI result Body Mass Index 20.7 General: AO X 3, no acute distress Resp: CTA bilateral CVS: S1,S2,RRR GI: +BS, NT, no distention Skin: No rash Neuro: motor grossly intact Psych: appropriate affect Discharge Plan Discharge Anticipated Discharge Date/Time: 01/06/25 10:45 Patient Disposition: Xfer SNF Discharge Diagnosis: Failure, pneumonia, deconditioning, Referrals: [facility] [Other] - 1 Day (SHORT TERM REHAB) CARDIOLOGY APPT, [facility] [Other] - 1 Week (PT HAS 1PM APPT ON ThursdayJanuary IN [place], [place], PT'S SON/HCP HOMER WILL TRANSPORT PT. ) Jerome Guido MD [Primary Care Provider] - 1 Week Discharge Medications: New amlodipine 5 mg Tablet 5 mg PO BEDTIME Qty: 90 0RF Protocol: Hold for SBP< HOLD for SBP < : 90 amoxicillin-pot clavulanate 875-125 mg Tablet 1 tab PO BID Qty: 6 0RF furosemide 40 mg Tablet 40 mg PO DAILY Qty: 90 0RF Protocol: Hold for SBP< HOLD for SBP < : 90 Continued acetaminophen 325 mg Tablet 650 mg PO Q4H PRN (Reason: Pain) albuterol sulfate 90 mcg/actuation HFA aerosol inhaler 2 puff PO Q4H PRN (Reason: Shortness Of Breath) rivaroxaban 20 mg tablet 20 mg PO DAILY montelukast 10 mg tablet 10 mg PO BEDTIME amiodarone 200 mg tablet 200 mg PO DAILY Qty: 30 5RF furosemide 40 mg tablet 40 mg PO DAILY PRN (Reason: swelling) Protocol: Hold for SBP< HOLD for SBP < : 90 aspirin [Adult Aspirin Regimen] 81 mg tablet,delayed release (DR/EC) 81 mg PO BEDTIME Discontinued amlodipine 10 mg tablet 5 mg PO BEDTIME Discharge Orders: Discharge Order (Routine); Ordered 01/06/25 Ordered By: Kit Rizo Diet: Advance to usual diet Activity on Discharge: As tolerated Stand Alone Forms: Patient Portal Discharge page Print Language: [place] Care Plan Goals: Recovery from CHF, pneumonia and decondition Health Concerns: Same as above Plan of Treatment: Day Lasix 40 mg daily for heart failure Take Augmentin as recommended to treat pneumonia Please note that Norvasc has been reduced from 10 mg to 5 mg daily Follow-up with your primary care doctor within a week, call for appointment Assessment: See above
[2025-01-06 10:46] VITALS: BP 120/62; PULSE 70; RESP 20; TEMP 36.8; O2SAT 94
[2025-01-06] MEDS: 0.9 % Sodium Chloride Flush 3 ML SYRINGE IVFLUSH (11:17)
[2025-01-06] MEDS: Amiodarone HCL 200 MG TABLET PO (11:17)
[2025-01-06] MEDS: Amoxicillin/Potassium Clav 875 MG TABLET PO (11:17)
== END 2025-01-06 11:30 | disposition skilled nursing facility (03) | DRG 291 ==
LOC: HO.ED 17:00 → HO.EDOVER 18:40 → HO.IMC 01-04 19:19
PROVIDERS: Physician Assistant Medical; Admitting Provider Student in an Organized Health Care Education/Training Program; Emergency Provider Emergency Medicine; PCP Internal Medicine; Visit Provider Internal Medicine
DX: I11.0 Hypertensive heart disease with heart failure (principal); I50.33 Acute on chronic diastolic (congestive) heart failure; T50.1X6A Underdosing of loop [high-ceiling] diuretics, initial encounter; I27.20 Pulmonary hypertension, unspecified; I42.2 Other hypertrophic cardiomyopathy; J45.20 Mild intermittent asthma, uncomplicated; I25.10 Atherosclerotic heart disease of native coronary artery without angina pectoris; J01.90 Acute sinusitis, unspecified; Z20.822 Contact with and (suspected) exposure to COVID-19; Z95.0 Presence of cardiac pacemaker; Z95.2 Presence of prosthetic heart valve; Z87.891 Personal history of nicotine dependence; Z79.01 Long term (current) use of anticoagulants; Z79.82 Long term (current) use of aspirin; Z79.899 Other long term (current) drug therapy
CPT/HCPCS: 0241U; 36415; 71045; 80048; 80076; 83735; 83880; 84484; 85025; 93005; 97162; 99285; J1940

== ENCOUNTER → 2025-01-02 15:27 | Outpatient (BNV) | payer MEDICARE, OTHER, SELFPAY | PROVIDERS: Emergency Provider Emergency Medicine; Visit Provider Radiology Diagnostic Radiology | DX: I51.7 Cardiomegaly (principal) | CPT/HCPCS: 71045 ==

== ENCOUNTER → 2025-01-02 15:27 | Outpatient (BNV) | payer MEDICARE, OTHER, SELFPAY | PROVIDERS: Admitting Provider Student in an Organized Health Care Education/Training Program; Emergency Provider Emergency Medicine; PCP Internal Medicine; Visit Provider Internal Medicine | DX: R94.31 Abnormal electrocardiogram [ECG] [EKG] (principal); Z95.0 Presence of cardiac pacemaker; I48.91 Unspecified atrial fibrillation; R06.02 Shortness of breath | CPT/HCPCS: 93010 ==

== ENCOUNTER → 2025-01-02 18:33 | Outpatient (BNV) | payer MEDICARE, OTHER, SELFPAY | PROVIDERS: Admitting Provider Student in an Organized Health Care Education/Training Program; Emergency Provider Emergency Medicine; PCP Internal Medicine; Visit Provider Student in an Organized Health Care Education/Training Program | DX: J18.9 Pneumonia, unspecified organism (principal); J01.90 Acute sinusitis, unspecified; R60.0 Localized edema; I50.9 Heart failure, unspecified | CPT/HCPCS: 99223; 99232; 99233 ==

== ENCOUNTER → 2025-03-07 10:40 | Outpatient (BNVA) | payer MEDICARE, OTHER, SELFPAY | PROVIDERS: PCP Internal Medicine; Visit Provider Internal Medicine Cardiovascular Disease | DX: Z13.89 Encounter for screening for other disorder (principal) ==

== ENCOUNTER → 2025-03-14 23:59 | Outpatient (BNV) | payer MEDICARE, OTHER, SELFPAY ==
--- NOTE | 2025-03-20 16:38 | A.OFFVIS_ITS ---
Intake Visit Reasons: Remote device check-Medtronic Allergies latex Allergy (Mild, Verified 01/02/25 15:11) Redness of Skin seasonal Allergy (Mild, Uncoded 01/02/25 15:11) Itchy Eyes PFSH Medical History Aortic stenosis Aortic stenosis, severe History of complete heart block History of blood transfusion History of GI bleed Personal history of COVID-19 Cervical disc disorder Hx of pulmonary embolus History of DVT (deep vein thrombosis) Anemia Asthma Non-rheumatic aortic stenosis Edema, peripheral Congestive heart failure Hypertrophic cardiomyopathy Pulmonary hypertension Obesity Paroxysmal atrial fibrillation Cardiac pacemaker in situ (~2013) CAD (coronary artery disease) (HFpEF) heart failure with preserved ejection fraction Surgical History Status post transcatheter aortic valve replacement History of cardiac cath History of heart surgery History of elbow surgery History of cardioversion History of permanent cardiac pacemaker placement Family History Father No problems noted. Mother CVD (cardiovascular disease) Social History Household Members: Family and None Household Members Other:: pt son's lives upstair Housing: House Are you a primary healthcare sales representative to a significant other at home: No Do you presently have visiting nurse or other home services: No Alcohol intake: current Alcohol intake frequency: holidays/special occasions only Alcohol type: wine Comment: Uses scooter Patient Tobacco Use Status: Former Tobacco user Tobacco use type: Cigarette Second Hand Smoke Exposure: No Advance Directives Date on File: 09/02/24 service: No Current occupational status: employed Office Procedures Cardiac Device Check Cardiac Device Check Details: Remote pacemaker report generated 03/14/2025. Atrial fibrillation noted. Patient ventricularly pacer dependent. Pacemaker function is adequate [id number] Cardiac Device Interrogation, pacemaker Procedure code (CPT) selection complete Assessment & Plan Assessment & Plan (1) Cardiac pacemaker in situ: Onset Date: ~2013 Comment: (Medtronic DCPP - placed 2013, generator change 02/2022) Code(s): Z95.0 - Presence of cardiac pacemaker Category: Medical Plan: See above Coding Level of Care Code Procedure Only Diagnoses Cardiac pacemaker in situ Z95.0 CPT Codes Cardiac Device Check - Cardiac Device 12: [id number] Cardiac Device Interrogation, pacemaker ([id number])
== END ==
PROVIDERS: PCP Internal Medicine; Visit Provider Internal Medicine Cardiovascular Disease
DX: I48.91 Unspecified atrial fibrillation (principal); Z95.0 Presence of cardiac pacemaker
CPT/HCPCS: 93294

== ENCOUNTER 2025-03-17 15:07 | Outpatient (REF) | payer MEDICARE, OTHER, SELFPAY ==
--- NOTE | ~2025-03-17 | CT_ITS ---
CLINICAL HISTORY: T46.2X1A - Poisoning by other antidysrhythmic drugs, accidental (uninten... CT chest without contrast Comparison: None Findings: The heart is enlarged. There is severe mitral annular calcification. There is a cardiac pacemaker. There is severe coronary artery calcification. The patient is status post TAVR. There are multiple thyroid nodules measuring up to 2 cm in size. The dominant nodule is partially calcified. There is no mediastinal lymphadenopathy. 5 mm pleural-based nodule within the medial right upper lobe on image 45. Linear foci of atelectasis and/or scarring within the posterior aspect of the right upper lobe and within the bilateral lower lobes. Mild heterogeneity of lung parenchyma likely secondary to areas of air trapping. No consolidation or pleural effusion. The upper abdomen is unremarkable. There are advanced degenerative changes of the bilateral shoulders. There are bilateral shoulder effusions, right much larger than left. IMPRESSION: 1. There is a 5 mm right upper lobe nodule. Recommend follow-up per Fleischner criteria. 2. There are multiple thyroid nodules. Consider ultrasound evaluation. This document has been electronically signed by: Dulce Maria Hawk MD on 03/20/2025 13:35:15
--- OUTSIDE RECORDS SUMMARY | 2025-03-17 15:10 | XMS_ITS ---
Author Organization Jerome Guido MD Address [address] [place] [phone] Care Team Providers Care Mail Technician Name Role Phone Jerome Guido Primary Care Provider [phone] Allergies No Known Allergies REASON FOR VISIT PH but a Telehealth, Video [phone] Medications Medication SIG (Take, Route, Frequency, Duration) Notes Start Date End Date Status Albuterol Sulfate HFA 108 (90 Base) MCG/ACT INHALE 1 PUFF BY MOUTH EVERY 4 HOURS NEEDED for 33 Active Montelukast Sodium 10 MG TAKE 1 TABLET B Y MOUTH EVERY DAY for 90 Active Advair Diskus 250-50 MCG/DOSE INHALE 1 PUFF BY MOUTH TWICE DAILY for 30 Not-Taking Ferrous Sulfate 324 (65 Fe) MG 1 tablet Orally twice a day Not-Taking Xarelto 20 MG TAKE 1 TABLET BY EVERY DAY WITH FOOD Orally Once a day Active Furosemide 40 MG 1 tablet Orally Once a day Active amLODIPine Besylate 10 MG 0.5 tablet Ora lly Once a day Active Aspirin 81 81 MG 1 tablet Orally Once a day for 30 day(s) Active Vital Signs Height 66 in 02/07/2025 Weight 135 lbs 02/07/2025 BMI 21.79 kg/m2 02/07/2025 weight at home today is 140 BP not taken yet today will be taken by [facility] Encounters Encounter Location Date Provider Diagnosis Jerome Guido MD [address] [place] [address] Drive [address] [place] [phone] 02/07/2025 Jerome Guido Chronic systolic congestive heart failure I50.22 ; Paroxysmal atrial fibrillation I48.0 and Pneumonia J18.9 Assessments Encounter Date Diagnosis (ICD Code) Assessment Notes Treatment Notes Treatment Clinical Notes Section Notes 02/07/2025 Chronic systolic congestive heart failure (ICD-10 - I50.22) doing well now, will continue to monitor 02/07/2025 Paroxysmal atrial fibrillation (ICD-10 - I48.0) the doctor from [place] stopped her amiodorone, will continue current regiment 02/07/2025 Pneumonia (ICD-10 - J18.9) is doing well after treatment/ order faxed to [facility] patient reg Plan Of Treatment Medication Medication Name Sig Start Date Stop Date Notes Xarelto 20 MG TAKE 1 TABLET BY ALANNA TH EVERY DAY WITH FOOD Orally Once a day Furosemide 40 MG 1 tablet Orally Once a day Treatment Notes Assessment Notes Chronic systolic congestive heart failur e doing well now, will continue to monitor Paroxysmal atrial fibrillation the docto r from [place] stopped her amiodorone, will continue current regiment Pneumonia is doing well after treatment/ order faxed to [facility] patient reg Future Test Test Name Order Date XR CHEST 2 VIEW PA & LAT 02/28/2025 Next Appt Details Follow Up: 2 Months, Reason: Provider Name:Jerome perez, 04/11/2025 02:00:00 PM, [address] [place] [address], Suite [facility], [place], [place], [phone], Provider Name:Jerome perez, 01/04/2026 01:45:00 PM, [address] [place] [address], Suite [facility], [place], [place], [phone], Progress Notes * Sophie VIDAL EDOB: [birth year] (79 yo F)Acc No.[id number]:02/07/2025 Patient:?Sophie VIDAL Provider:?Jerome Guido MD :1945???Age:79 Y???Sex:Female D ate:02/07/2025 Address:[address] [place] [address] [place] [id number] Subjective: * Chief Complaints: * ???PH but a TelehealthVideo [phone] * HPI: ???Symptom(s):?Telehealth?Location of provider rendering services:?[address], [address],?Location of patient:?at address listed in demographics for today's visit,?Patient identification confirmed using:?Name, ,?Telehealth method:?Video conference where patient is visible to the provider of care,?Consent:?Patient verbally consented to treatment, Patient verbally consented to billing insurance company, Patient informed of any privacy concerns related to method of visit,?Total time spend talking with patient (minutes)?26.? patient is a 79 yo female telehealth visit here transitional care management visit, discharge summary has been reviewed and medications reconcilled. * ROS:?General/Constitutional:?Denies?Chills.?Denies?Fatigue.?Denies?Fever.?Denies?Headache.?ENT:?Denies?Sore throat.?Respiratory:?Denies?Cough.?Denies?Shortness of breath at rest.?Admits?Shortness of breath with exertion.?Cardiovascular:?Denies?Chest pain at rest.?Denies?Chest pain with exertion.?Denies?Dizziness.?Denies?Fluid accumulation in the legs.?Denies?Palpitations.?Denies?Shortness of breath.?Gastrointestinal:?Denies?Diarrhea.?Denies?Nausea.? * Medical History:? * Surgical History:? * Hospitalization/Major Diagno stic Procedure:? * Medications:?TakingFurosemid e 40 MG Tablet 1 tablet Orally Once a day Aspirin 81 81 MG Tablet Delayed Release 1 tablet Orally Once a day amLODIPine Besylate 10 MG Tablet 0.5 tablet Orally Once a day Montelukast Sodium 10 MG Tablet TAKE 1 TABLET BY MOUTH EVERY DAY Albuterol Sulfate HFA 108 (90 Base) MCG/ACT Aerosol Solution INHALE 1 PUFF BY MOUTH EVERY 4 HOURS NEEDED Xarelto 20 MG Tablet TAKE 1 TABLET BY MOUTH EVERY DAY WITH FOOD Orally Once a day Taking Furosemide 40 MG Tablet 1 tablet Orally Once a day Taking Aspirin 81 81 MG Tablet Delayed Release 1 tablet Orally Once a day Taking amLODIPine Besylate 10 MG Tablet 0.5 tablet Orally Once a day Taking Montelukast Sodium 10 MG Tablet TAKE 1 TABLET BY MOUTH EVERY DAY Taking Albuterol Sulfate HFA 108 (90 Base) MCG/ACT Aerosol Solution INHALE 1 PUFF BY MOUTH EVERY 4 HOURS NEEDED Taking Xarelto 20 MG Tablet TAKE 1 TABLET BY MOUTH EVERY DAY WITH FOOD Orally Once a day Not-Taking/PRNFerrous Sulfate 324 (65 Fe) MG Tablet Delayed Release 1 tablet Orally twice a day Advair Diskus 250-50 MCG/DOSE Aerosol Powder Breath Activated INHALE 1 PUFF BY MOUTH TWICE DAILY Not-Taking/PRN Ferrous Sulfate 324 (65 Fe) MG Tablet Delayed Release 1 tablet Orally twice a day Not-Taking/PRN Advair Diskus 250-50 MCG/DOSE Aerosol Powder Breath Activated INHALE 1 PUFF BY MOUTH TWICE DAILY DiscontinuedAmiodarone HCl 200 MG Tablet 1 tablet Orally Once a day Medication List reviewed and reconciled with the patientDiscontinued Amiodarone HCl 200 MG Tablet 1 tablet Orally Once a day Medication List reviewed and reconciled with the patient * Allergies:?N.K.D.A.yes[Aller gies Verified] Objective: * Vitals:?Ht: 66, Wt:135, BMI: 21.79, Wt-k.24. weight at home today is 140? BP? not taken yet today? will be taken by [facility]. * Examination: ???General Examination: ?GENERAL APPEARANCE:?alert, well hydrated, in no distress.?HEAD:?normocephalic.? Assessment: * Assessment: 1.?Chronic systolic congesti ve heart failure - I50.22 (Primary)???2.?Paroxysmal atrial fibrillation - I48.0???3.?Pneumonia - J18.9??? Plan: * Treatment: 2.?Paroxysmal atrial fibrill ation? Continue Xarelto Tablet, 20 MG, TAKE 1 TABLET BY MOUTH EVERY DAY WITH FOOD, Orally, Once a day.?? Notes: the doctor from [place] stopped her amiodorone, will continue current regiment?? 3.?Pneumonia?Imaging: XR CHEST 2 VIEW PA & LAT (Ordered for 02/28/2025) Notes: is doing well after treatment/ order faxed to [facility] patient reg ?? * Procedure Codes:? * Follow Up:?2 Months * * Sign off status: Completed true * Provider:?Jerome Guido MD Date:?0 02/07/2025 Generated for Elianei mc/Satish/eTransmitting on:?03/17/2025 03:10 PM EDT History and Physical Notes * HPI (History of Present Illness) Category Sub-Category Detail Notes Category Not es Symptom(s) Telehealth Location of [facility] rendering services:: [address], [address] patient is a 79 yo female telehealth visit here transitional care management visit, discharge summary has been reviewed and medications reconcilled. Location of patient:: at address listed in demographics for today's visit Patient identification confirmed using:: Name, Telehealth method:: Video co nference where patient is visible to the provider of care Consent:: Patient verbally c onsented to treatment, Patient verbally consented to billing insurance company, Patient informed of any privacy concerns related to method of visit Total time spend talking with patient (m inutes): 26 Examination Category Sub-Category Detail Notes Category Not es General Examination GENERAL APPEARANCE: alert, w ell hydrated, in no distress HEAD: normocephalic
--- OUTSIDE RECORDS SUMMARY | 2025-03-17 15:11 | XMS_ITS ---
Author Organization Jerome Guido MD Address [address] [place] [phone] Care Team Providers Care Biology Teacher Name Role Phone Jerome Guido Primary Care Provider [phone] REASON FOR VISIT Dizziness Encounters Encounter Location Date Provider Diagnosis Jerome Guido MD [facility] [address] [place] [phone] 02/09/2025 Jerome Guido Plan Of Treatment Next Appt Details Provider Name:Jerome Orosco iechristen, 04/11/2025 02:00:00 PM, [address] [place] [address], Suite [facility], [place], [place], [phone], Provider Name:Jerome perez, 01/04/2026 01:45:00 PM, [address] [place] [address], [address] [place] [address], [id number], Progress Notes * Sophie VIDAL EDOB: [birth year] (79 yo F)Acc No.[id number]:02/09/2025 Patient:?Sophie VIDAL :1945???Age:79 Y???Sex:Female Address:[address] [place], [place] [address] [place] [facility] * true * Date:? Generated for Danyelle bentley/Satish/eTransmitting on:?03/17/2025 03:10 PM EDT
--- OUTSIDE RECORDS SUMMARY | 2025-03-17 15:11 | XMS_ITS | Continuity of Care Document ---
Author Organization [facility] Address [address] [place] [id number] Care Team Providers Care Senior Net Developer Name Role Phone Jerome Guido MD Primary Care Physician [phone] Encounter [facility] Date(s): 02/13/25 - 03/15/[address] [address] Attending Physician: Gloria Smith Admitting Physician: Gloria Smith Referring Physician: Gloria Smith Encounter Type: Triage Allergies, Adverse Reactions, Alerts Substance Criticality Severity Reaction Reaction Severity Status Latex Active Immunizations Given and Recorded Vaccine Date Status Refusal Reason SARS-CoV-2 (COVID-19) mRNA BNT-162b2 vac 01/08/21 Given SARS-CoV-2 (COVID-19) mRNA BNT-162b2 vac 12/18/20 Given Medications amLODIPine 10 mg oral tablet 10 mg, 1, tablet, By Mouth, Daily, # 30 tablet, Refills 0, Tot. Refills 0, Maintenance, 09/13/24 4:10:00 PM EST, Route to Pharmacy Electronically, [facility], Partial fill upon patient [...] 9:50:00 AM EST, Route to Pharmacy Electronically, [facility], Partial fill upon patient [...] 03/19/18 Sex Sex Representation Female (finding) Cardiology * Event Display: Cardiology Office Note, Non-BH Authored Date: * Event Display: Cardiology Office Note, Non-BH Authored Date: * Event Display: Device Interrogation Scans, Non- Authored Date: Patient Care team information Care Team Personnel Name: Jerome Guido MD Position: Reference Physician Member Role: PCP Address: [address] [place] [address] Jerome Guido MD [address] Telecom: [phone] Name: Philip Obrien RN Position: S RN [...] NA Health Plan Information #: 2 Payer: [employer] Member Number: NA Policy Number: NA Group Number: NA
--- OUTSIDE RECORDS SUMMARY | 2025-03-17 15:11 | XMS_ITS | Patient Health Record ---
Author Organization Jerome Guido MD Address [address] [place] [phone] Care Team Providers Care House Worker General Name Role Phone Jerome Guido Primary Care Provider Allergies No Known Allergies Results Component Value Reference Range Notes XR chest 1V Reviewed date:09/03/2024 12:55:16 PM Interpretation: Performing Lab: Notes/Report: [address] [address] XRay Report Signed Patient: Sophie Schulz MR#: [id number] : 1945 Acct:[id number] Age/Sex: 78 / F ADM Date: 09/02/24 Loc: .ED Attending Dr: Ordering Physician: David Loredo MD Date of Service: 09/02/24 Procedure(s): XR chest 1V Accession Number(s): [id number] cc: Jerome Guido MD; David Loredo MD [...] <Electronically signed by Allan Wood in OV> 09/02/24717 DD/ 1 TD/TT: 09/02/24631 Scale Assembly Set Up Worker: [place] [id number] XRay Report Signed Patient: Servando Schulz MR#: [id number] : 1945 Acct:[id number] Age/Sex: 78 / F ADM Date: 09/02/24 Loc: .ED Attending Dr: Ordering Physician: David Loredo MD Date of Service: 09/02/24 Procedure(s): XR chest 1V Accession Number(s): [id number] cc: Jerome Guido MD; David Loredo MD EXAMINATION: XR CHEST CLINICAL INFORMATION: sob COMPARISON: X-ray dated January 26, 2024 TECHNIQUE: Frontal view of the chest was obtained. FINDINGS: Menisci shaped opaci ty left lower hemithorax. Blunting of the righ t costophrenic angle. Prominence of the interstitial lung markings. Cardiomediastinal silhouette is enlarged. Heart valve calcific ation likely mitral. 2. Intact electrode leads in the right heart chambers from the left-sided pacemaker. Calcified plaque aor tic arch. Prominent right perihilar. Degenerative changes in the glenohumeral joints. Multilevel spondylosis. X R/XR chest 1V IMPRESSION: Bilateral pleural effusions, left greater than right. Cardiomegaly versus pericardial effusion. Mild interstitial meghan ng edema. Calcified mitral valve. Electronically carmen d by: Allan Crawford MD 09/02/2024 07:18 AM EDT RP Dictated By: Allan Mullen Signed By: <Electron ically signed by Allan Wood in OV> 09/02/24717 DD/ 1 TD/TT: 09/02/24631 Scale Assembly Set Up Worker: Zoltan Mustafa. Panel Reviewed date:09/04/2024 03:58:04 PM Interpretation: Performing Lab:[facility], [address] [place] [phone] Notes/Report: Sodium 143 135-145 mmol/L Potassium 4.6 [...] Estimated Glomerular Filt Rate 60 NOTE: For -Wallisian individuals, multiply the result by 1.210. Chronic [...] Diff Reviewed date:09/04/2024 03:57:41 PM Interpretation: Performing Lab:[facility], [address] [place] [phone] Notes/Report: White Blood Count 5.4 4.8-10.8 X10*3/uL [...] Panel Reviewed date:09/04/2024 03:54:21 PM Interpretation: Performing Lab:[facility], [address] [place] [phone] Notes/Report: Sodium 142 135-145 mmol/L Potassium 4.1 [...] Glomerular Filt Rate > 60 NOTE: For -Wallisian individuals, multiply the result by 1.210. Chronic [...] g Reviewed date:09/04/2024 03:54:55 PM Interpretation: Performing Lab:[facility], [address] [place] [phone] Notes/Report: Glucose Fasting 91 60-99 mg/dL Complete Blood Count no Diff Reviewed date:09/05/2024 06:19:20 PM Interpretation: Performing Lab:[facility], [address] [place] [phone] Notes/Report: White Blood Count 5.2 4.8-10.8 X10*3/uL [...] Panel Reviewed date:09/05/2024 12:57:43 PM Interpretation: Performing Lab:[facility], [address] [place] [phone] Notes/Report: Sodium 138 135-145 mmol/L Potassium 3.8 [...] Glomerular Filt Rate > 60 NOTE: For -Wallisian individuals, multiply the result by 1.210. Chronic [...] g Reviewed date:09/05/2024 12:56:58 PM Interpretation: Performing Lab:[address] [address] Notes/Report: Glucose Fasting 94 60-99 mg/dL Magnesium Reviewed date:09/05/2024 12:32:33 PM Interpretation: Performing Lab:[facility], [address] [place] [phone] Notes/Report: Magnesium 2.0 1.6-2.6 mg/dL B Type Natriuretic Peptide Reviewed date:09/05/2024 12:37:33 PM Interpretation: Performing Lab:[address] [address] Notes/Report: B Type Natriuretic Peptide 339 <100 pg/mL For those patients who are being treated with Natrecor (nesiritide, recombinant BNP), BNP testing should be performed at least two hours post treatment in order to ensure that only endogenous levels of BNP are detected. Complete Blood Count no Diff Reviewed date:09/11/2024 01:56:32 PM Interpretation: Performing Lab:[address] [address] Notes/Report: White Blood Count 5.3 4.8-10.8 X10*3/uL [...] INR Reviewed date:09/11/2024 01:55:43 PM Interpretation: Performing Lab:[address] [address] Notes/Report: Prothrombin Time 19.0 10.9-12.4 [employer] [...] Panel Reviewed date:09/11/2024 01:55:33 PM Interpretation: Performing Lab:[address] [address] Notes/Report: Sodium 145 135-145 mmol/L Potassium 4.5 3.3-5.1 mmol/L Chloride 109 96-108 mmol/L Carbon Dioxide 26 22-29 mmol/L Anion Gap 15 12-20 Blood Urea Nitrogen 28 9-16 mg/dL Creatinine 0.84 0.5-1.4 mg/dL Estimated Glomerular Filt Rate > 60 NOTE: For -Wallisian individuals, multiply the result by 1.210. Chronic Kidney Disease: Estimated GFR < 60 mL/min/1.73m2 Severe Kidney Disease: Estimated GFR < 15 mL/min/1.73m2 Glucose Random 112 60-115 mg/dL Calcium 9.1 8.4-10.2 mg/dL US thyroid Reviewed date:11/21/2024 08:13:55 AM Interpretation: Performing Lab: Notes/Report: [address] [address] Ultrasound Report Signed Patient: Sophie Schulz MR#: [id number] : 1945 Acct:[id number] Age/Sex: 78 / F ADM Date: 09/21/24 Loc: HO.US Attending Dr: Eduardo Humphries MD Ordering Physician: Eduardo Humphries MD Date of Service: 09/21/24 Procedure(s): US thyroid Accession Number(s): [id number] cc: Jerome Guido MD; Eduardo Humphries MD EXAMINATION: US THYROID CLINICAL INFORMATION: Nontoxic single thyroid nodule. COMPARISON: Thyroid ultrasound 11/14/2015. TECHNIQUE: Linear transducer grayscale and color Doppler examination with attention to the region of the thyroid. FINDINGS: SIZE: Measurements of the thyroid lobes and nodules are given in sagittal, anteroposterior and transverse dimensions respectively. Right Thyroid Lobe: 5.8 x 3.0 x 1.4 cm, volume 11.0 mL. Previously 4.9 x 2.4 x 2.1 cm, volume 13 mL. Parenchyma: The gland echotexture is heterogeneous. Thyroid vascularity is increased. Left Thyroid Lobe: 5.2 x 3.1 x 1.9 cm, volume 15.1 mL. Previously 6.0 x 2.1 x 2.7 cm, volume 16 mL. Parenchyma: The gland echotexture is heterogeneous. Thyroid vascularity is increased. Isthmus: 0.7 cm in maximum AP dimension. Previously 0.5 cm. Estimated total number of nodules greater than or equal to 1 cm: 6 to 10. Packaging Sales nodules are described as follows: 1. Location: Left superior. Size: 1.1 x 1.0 x 1.1 cm, volume 0.67 mL. Previously: Unable to compare to previous. Nodule characteristics: Composition: Solid (2). Echogenicity: Hypoechoic (2). Shape: Not taller than wide (0). Margins: Smooth (0). Echogenic Foci: None (0). ACR TI-RADS total points: 4 ACR TI-RADS category: 4 2. Location: Left superior. Size: 1.6 x 1.7 x 1.3 cm, volume 1.90 mL. Previously: Unable to compare to previous. Nodule characteristics: Composition: Solid (2). Echogenicity: Cannot be determined (1). Shape: Taller than wide (3). Margins: Smooth (0). Echogenic Foci: Macrocalcifications (1). Peripheral calcifications (2). ACR TI-RADS total points: 9 ACR TI-RADS category: 5 3. Location: Left mid. Size: 1.9 x 1.3 x 1.3 cm, volume 1.57 mL. Previously: Unable to compare to previous. Nodule characteristics: Composition: Solid (2). Echogenicity: Hypoechoic (2). Shape: Not taller than wide (0). Margins: Smooth (0). Echogenic Foci: None (0). ACR TI-RADS total points: 4 ACR TI-RADS category: 4 4. Location: Left inferior. Size: 1.3 x 1.0 x 1.4 cm, volume 0.98 mL. Previously: Unable to compare to previous. Nodule characteristics: Composition: Solid (2). Echogenicity: Cannot be determined (1). Shape: Not taller than wide (0). Margins: Irregular (2). Echogenic Foci: Macrocalcifications (1). ACR TI-RADS total points: 6 ACR TI-RADS category: 4 5. Location: Very low isthmus. Size: 1.4 x 1.5 x 1.5 cm, volume 1.67 mL. Previously: Unable to compare to previous. Nodule characteristics: Composition: Solid (2). Echogenicity: Hypoechoic (2). Shape: Not taller than wide (0). Margins: Smooth (0). Echogenic Foci: None (0). ACR TI-RADS total points: 4 ACR TI-RADS category: 4 NODES: No lymphadenopathy is seen in the tissue surrounding the thyroid gland. US/US thyroid IMPRESSION: 1. Enlarged heterogeneous hypervascular thyroid with multiple nodules. 2. The 1.7 cm left upper pole nodule, 1.9 cm left mid pole nodule and 1.5 cm isthmic nodule should undergo biopsy. ACR TI-RADS RECOMMENDATION REFERENCE: Ultrasound-guided fine-needle aspiration, follow up ultrasound, no further followup. * TR1 (0 point) and TR2 (2 points): No FNA or followup * TR3 (3 points): FNA if more than or equal to 2.5 cm in maximum dimension, follow up ultrasound in 1, 3 and 5 years if 1.5 to 2.4 cm in maximum dimension. * TR4 (4-6 points): FNA if more than or equal to 1.5 cm in maximum dimension, follow up ultrasound in 1, 2, 3 and 5 years if 1 to 1.4 cm in maximum dimension. * TR5 (more than or equal to 7 points): FNA if more than or equal to 1 cm in maximum dimension, follow up ultrasound every year for 5 years if 0.5 to 0.9 cm in maximum dimension. * TR3, TR4 or TR5 nodules that are below the size threshold for follow up receive no followup. Electronically signed by: Quinn Pang MD 11/18/2024 03:03 PM [facility] Dictated By: Quinn Pnag MD Signed By: <Electronically signed by Quinn Pang MD in [place]> 11/18/24 1503 DD/ 1501 TD/TT: 09/21/24 1527 Scale Assembly Set Up Worker: [place] [id number] Ultrasound Report Signed Patient: Servando Schulz MR#: [id number] : 1945 Acct:[id number] Age/Sex: 78 / F ADM Date: 09/21/24 Loc: HO.US Attending Dr: Eduardo Humphries MD Ordering Physician: Eduardo Humphries MD Date of Service: 09/21/24 Procedure(s): US thyroid Accession Number(s): [id number] cc: Jerome Guido MD; Eduardo Humphries MD EXAMINATION: US THYROID CLINICAL INFORMATION: Nontoxic single thyr oid nodule. COMPARISON: Thyroid ultrasound 11/14/2015. TECHNIQUE: Linear transducer grayscale and color Doppler examination with attention to the reg ion of the thyroid. FINDINGS: SIZE: Measurements o f the thyroid lobes and nodules are given in sagittal, anteropost erior and transverse dimensions respectively. Right Thyroid Lobe: 5.8 x 3.0 x 1.4 cm, volume 11.0 mL. Previously 4.9 x 2.4 x 2.1 cm, volu me 13 mL. Parenchyma: The glan d echotexture is heterogeneous. Thyroid vascularity is increased. Left Thyroid Lobe: 5 .2 x 3.1 x 1.9 cm, volume 15.1 mL. Previously 6.0 x 2.1 x 2.7 cm, volume 16 mL. Parenchyma: The glan d echotexture is heterogeneous. Thyroid vascularity is increased. Isthmus: 0.7 cm in m aximum AP dimension. Previously 0.5 cm. Estimated total numb er of nodules greater than or equal to 1 cm: 6 to 10. Packaging Sales n odules are described as follows: 1. Location: Left superior. Size: 1.1 x 1.0 x 1. 1 cm, volume 0.67 mL. Previously: Unable t o compare to previous. Nodule characteristics: Composition: Solid (2). Echogenicity: Hypoec hoic (2). Shape: Not taller th an wide (0). Margins: Smooth (0). Echogenic Foci: None (0). ACR TI-RADS total po ints: 4 ACR TI-RADS category: 4 2. Location: Left superior. Size: 1.6 x 1.7 x 1. 3 cm, volume 1.90 mL. Previously: Unable t o compare to previous. Nodule characteristics: Composition: Solid (2). Echogenicity: Cannot be determined (1). Shape: Taller than w boaz (3). Margins: Smooth (0). Echogenic Foci: Macrocalcifications (1). Peripheral calcifications (2). ACR TI-RADS total po ints: 9 ACR TI-RADS category: 5 3. Location: Left mid. Size: 1.9 x 1.3 x 1. 3 cm, volume 1.57 mL. Previously: Unable t o compare to previous. Nodule characteristics: Composition: Solid (2). Echogenicity: Hypoec hoic (2). Shape: Not taller th an wide (0). Margins: Smooth (0). Echogenic Foci: None (0). ACR TI-RADS total po ints: 4 ACR TI-RADS category: 4 4. Location: Left inferior. Size: 1.3 x 1.0 x 1. 4 cm, volume 0.98 mL. Previously: Unable t o compare to previous. Nodule characteristics: Composition: Solid (2). Echogenicity: Cannot be determined (1). Shape: Not taller th an wide (0). Margins: Irregular (2). Echogenic Foci: Macrocalcifications (1). ACR TI-RADS total po ints: 6 ACR TI-RADS category: 4 5. Location: Very lo w isthmus. Size: 1.4 x 1.5 x 1. 5 cm, volume 1.67 mL. Previously: Unable t o compare to previous. Nodule characteristics: Composition: Solid (2). Echogenicity: Hypoec hoic (2). Shape: Not taller th an wide (0). Margins: Smooth (0). Echogenic Foci: None (0). ACR TI-RADS total po ints: 4 ACR TI-RADS category: 4 NODES: No lymphadeno nain is seen in the tissue surrounding the thyroid gland. U S/US thyroid IMPRESSION: 1. Enlarged heteroge neous hypervascular thyroid with multiple nodules. 2. The 1.7 cm left u pper pole nodule, 1.9 cm left mid pole nodule and 1.5 cm isthmic nodul e should undergo biopsy. ACR TI-RADS RECOMMEN DATION REFERENCE: Ultrasound-guided fine-needle aspiration, follow up ultrasound, no further followup. * TR1 (0 point) and TR2 (2 points): No FNA or followup * TR3 (3 points): FN A if more than or equal to 2.5 cm in maximum dimension, follow up ultrasound in 1, 3 and 5 years if 1.5 to 2.4 cm in maximum dimension. * TR4 (4-6 points): FNA if more than or equal to 1.5 cm in maximum dimension, follow up ultrasound in 1, 2, 3 and 5 years if 1 to 1.4 cm in maximum dimension. * TR5 (more than or equal to 7 points): FNA if more than or equal to 1 cm in maximum dimens ion, follow up ultrasound every year for 5 years if 0.5 to 0.9 cm in max imum dimension. * TR3, TR4 or TR5 no dules that are below the size threshold for follow up receive no followup. Electronically carmen d by: Quinn Pang MD 11/18/2024 03:03 PM [facility] Dictated By: Quinn Pang MD Signed By: <Electron ically signed by Quinn Pang MD in [place]> 11/18/24 1503 DD/ 1501 TD/TT: 09/21/24 1527 Scale Assembly Set Up Worker: LANE Basic Metabolic Panel Reviewed date:01/03/2025 12:29:45 PM Interpretation: Performing Lab:[facility], [address] [place] [phone] Notes/Report: Sodium 143 135-145 mmol/L Potassium 3.9 3.3-5.1 mmol/L Chloride 113 96-108 mmol/L Carbon Dioxide 22 22-29 mmol/L Anion Gap 12 12-20 Blood Urea Nitrogen 42 9-16 mg/dL Creatinine 1.23 0.5-1.4 mg/dL Creatinine Clr Calc Pharmacy 36.0 Provided height and weight: 172.72 cm, 61.689 kg. eGFR (calculated from the MDRD study equation) and eCrCl (calculated from the Cockcroft-Gault equation) are based on different parameters and may not yield comparable results. If eCrCl result is absurd, please check patient's height/weight. Estimated Glomerular Filt Rate 42 Chronic Kidney Disease: Estimated GFR < 60 mL/min/1.73m2 Severe Kidney Disease: Estimated GFR < 15 mL/min/1.73m2 Glucose Random 88 60-115 mg/dL Calcium 7.9 8.4-10.2 mg/dL B Type Natriuretic Peptide Reviewed date:01/03/2025 12:29:02 PM Interpretation: Performing Lab:[facility], [address] [place] [phone] Notes/Report: B Type Natriuretic Peptide 1059 <100 pg/mL For those patients who are being treated with Natrecor (nesiritide, recombinant BNP), BNP testing should be performed at least two hours post treatment in order to ensure that only endogenous levels of BNP are detected. Basic Metabolic Panel Reviewed date:01/04/2025 01:23:10 PM Interpretation: Performing Lab:[facility], [address] [place] [phone] Notes/Report: Sodium 142 135-145 mmol/L Potassium 4.2 3.3-5.1 mmol/L Chloride 111 96-108 mmol/L Carbon Dioxide 24 22-29 mmol/L Anion Gap 11 12-20 Blood Urea Nitrogen 31 9-16 mg/dL Creatinine 1.07 0.5-1.4 mg/dL Creatinine Clr Calc Pharmacy 41.5 Provided height and weight: 172.72 cm, 61.689 kg. eGFR (calculated from the MDRD study equation) and eCrCl (calculated from the Cockcroft-Gault equation) are based on different parameters and may not yield comparable results. If eCrCl result is absurd, please check patient's height/weight. Estimated Glomerular Filt Rate 49 Chronic Kidney Disease: Estimated GFR < 60 mL/min/1.73m2 Severe Kidney Disease: Estimated GFR < 15 mL/min/1.73m2 Glucose Random 92 60-115 mg/dL Calcium 7.9 8.4-10.2 mg/dL B Type Natriuretic Peptide Reviewed date:01/04/2025 01:23:28 PM Interpretation: Performing Lab:[facility], [address] [place] [phone] Notes/Report: B Type Natriuretic Peptide 672 <100 pg/mL For those patients who are being treated with Natrecor (nesiritide, recombinant BNP), BNP testing should be performed at least two hours post treatment in order to ensure that only endogenous levels of BNP are detected. Liver Panel Reviewed date:01/05/2025 04:13:23 PM Interpretation: Performing Lab:[facility], [address] [place] [phone] Notes/Report: Bilirubin Total 0.7 0.0-1.0 mg/dL Bilirubin Direct 0.4 0.0-0.5 mg/dL Aspartate Amino Transferase 18 5-31 U/L Alanine Aminotransferase 15 0-31 U/L Total Protein 6.4 6.5-8.0 g/dL Albumin Level 3.3 3.5-5.0 g/dL Alkaline Phosphatase 130 39-117 U/L Basic Metabolic Panel Reviewed date:01/05/2025 04:13:14 PM Interpretation: Performing Lab:[facility], [address] [place] [phone] Notes/Report: Sodium 142 135-145 mmol/L Potassium 4.7 3.3-5.1 mmol/L Chloride 111 96-108 mmol/L Carbon Dioxide 25 22-29 mmol/L Anion Gap 11 12-20 Blood Urea Nitrogen 22 9-16 mg/dL Creatinine 0.83 0.5-1.4 mg/dL Creatinine Clr Calc Pharmacy 53.5 Provided height and weight: 172.72 cm, 61.689 kg. eGFR (calculated from the MDRD study equation) and eCrCl (calculated from the Cockcroft-Gault equation) are based on different parameters and may not yield comparable results. If eCrCl result is absurd, please check patient's height/weight. Estimated Glomerular Filt Rate > 60 Chronic Kidney Disease: Estimated GFR < 60 mL/min/1.73m2 Severe Kidney Disease: Estimated GFR < 15 mL/min/1.73m2 Glucose Random 108 60-115 mg/dL Calcium 8.3 8.4-10.2 mg/dL Reason For Referral Reason has some worse bre josh Diagnosis 1 Chronic systolic con gestive heart failure (I50.22) Referral Organization Jerome Guido MD Referring Provider First Name Jerome Referring Provider Last Name Lata Referring Provider Speciality Internal M edicine Referred Provider Ankit Stuart Referred Provider Specialty Cardiovascul ar Disease General Notes Carley Anthony 02:38:16 PM EDT > info faxed , Carley Anthony 07/04/2024 01:18:55 PM EDT > info mailed [...] Anthony 02:38:46 PM EDT > info faxed Gabrielle Annette 06/30/2024 03:27:27 PM EDT > x [phone] was told to call back next week , Carley Anthony 07/04/2024 11:45:17 AM EDT > appt is with Gabrielle Campo Annette 07/04/2024 11:56:08 AM EDT > called patient with above info Referral Priority Routine Referral Appointment Date 07/12/2024 Reason thyroid nodule pleas e eval and treat Diagnosis 1 Nontoxic single thyr oid nodule (E04.1) Referral Organization Jerome Guido MD Referring Provider First Name Jerome Referring Provider Last Name Lata Referring Provider Speciality Internal M edicine Referred Provider Gavino Beckman Referred Provider Specialty Endocrinolog y General Notes Carley Anthony 0 11/22/2024 02:45:49 PM > referral info faxedGabrielle Annette 12/12/2024 07:31:41 AM > info mailed Referral Priority Routine Referral Appointment Date 01/02/2025 Medications Medication SIG (Take, Route, Frequency, Duration) Notes Start Date End Date Status Xarelto 20 MG TAKE 1 TABLET BY ALANNA TH EVERY DAY WITH FOOD Orally Once a day Active Albuterol Sulfate HFA 108 (90 Base) MCG/ACT INHALE 1 PUFF BY MOUTH EVERY 4 HOURS NEEDED for 33 Active Furosemide 40 MG 1 tablet Orally Once a day Active Montelukast Sodium 10 MG TAKE 1 TABLET B Y MOUTH EVERY DAY for 90 Active amLODIPine Besylate 10 MG 0.5 tablet Ora lly Once a day Active Aspirin 81 81 MG 1 tablet Orally Once a day for 30 day(s) Active Advair Diskus 250-50 MCG/DOSE INHALE 1 PUFF BY MOUTH TWICE DAILY for 30 Not-Taking Ferrous Sulfate 324 (65 Fe) MG 1 tablet Orally twice a day Not-Taking Immunizations Vaccine Route Administration Date Status Comme nts Flu Vaccine IM Intramuscular 07/27/2012 Administered PPSV23 (Pnemovax) IM Intramuscular 10/05/2012 Administered Prevnar 13 Unknown 12/30/2012 Administered Flu Vaccine Unknown 08/11/2013 Administered Flu Vaccine IM Intramuscular 10/17/2014 Administered zFluzone Quadrivalent IM Intramuscular 09/11/2015 Administered Flu Vaccine Unknown 12/04/2016 Administered Given while inpatient at [facility]. Fluarix Quadrivalent IM Intramuscular 07/23/2017 Administered [...] High Dose IM Intramuscular 08/12/2024 Administer ed Problems Problem Type SNOMED Code ICD Code Onset Dates Problem Status W/U Status Risk Notes Problem 482829589 Thyroid nodule (E04.1) Active confirmed Problem 755070628 Paroxysmal atria l fibrillation (I48.0) Active confirmed Problem Non-toxic single thyroid nodule (413033508) Nontoxic single thyroid nodule (E04.1) Active confirmed Problem 77483659 Other chronic pain (G89.29) Active confirmed Problem 197302337 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) Active confirmed Problem 539439564 Mild intermitten t asthma without complication (J45.20) Active confirmed Problem 216047596 Chronic systolic congestive heart failure (I50.22) Active confirmed Problem 192022472 Nonrheumatic aortic valve stenosis (I35.0) Active confirmed Problem 83833745 Other iron deficiency anemia (D50.8) Active confirmed Problem Cervical disc disease (265523722) Cervical disc disease (M50.90) Active confirmed Problem 750369146 Non-rheumatic mitral regurgitation (I34.0) Active confirmed Problem Idiopathic peripheral neuropathy (96468816) Idiopathic peripheral neuropathy (G60.9) Active confirmed Problem 03244757 Pulmonary hypertension (I27.20) Active confirmed Problem Gout (88504471) Acute gout of right hand, unspecified cause (M10.9) Active confirmed Problem 6751035542959 S/P TAVR (transcatheter aortic valve replacement) (Z95.2) Active confirmed Vital Signs Blood pressure diastolic 60 mm Hg 11/17/2024 catherine ght is up 6 pounds since 08-12-24 Height 66 in 02/07/2025 weight at home today is 140 BP not taken yet today will be taken by [facility] Blood pressure systolic 102 mm Hg 11/17/2024 weig ht is up 6 pounds since 08-12-24 Weight 135 lbs 02/07/2025 weight at home today is 140 BP not taken yet today will be taken by [facility] BMI 21.79 kg/m2 02/07/2025 weight at home today is 140 BP not taken yet today will be taken by [facility] Encounters Encounter Location Date Provider Diagnosis Jerome Guido MD [address] [place] [address] Drive [address] [place] [id number] 06/27/2024 Jerome Guido Chronic systolic congestive heart failure I50.22 ; Pain in right shoulder M25.511 ; Other chronic pain G89.29 and Weight loss R63.4 Jerome Guido MD [address] [place] [address] [address] [id number] 08/12/2024 Jerome Guido Pain in right shoulder M25.511 ; Other chronic pain G89.29 ; Paroxysmal atrial fibrillation I48.0 ; Encounter for immunization Z23 and Acute non-recurrent maxillary sinusitis J01.00 Jerome Guido MD [address] [place] [address] Drive [address] [place] [id number] 11/17/2024 Jerome Guido Chronic systolic congestive heart failure I50.22 and S/P TAVR (transcatheter aortic valve replacement) Z95.2 Jerome Guido MD [address] [place] [address] Drive [address] [place] [id number] 01/02/2025 Jerome Guido IHSS (idiopathic hypertrophic subaortic stenosis) I42.1 and Encounter for general adult medical examination with abnormal findings Z00.01 Jerome uGido MD [address] [place] [address] Drive [address] [place] [id number] 02/07/2025 Jerome Guido Chronic systolic congestive heart failure I50.22 ; Paroxysmal atrial fibrillation I48.0 and Pneumonia J18.9 Jerome Guido MD [address] [place] [address] [id number] 05/10/2024 Jerome Guido MD [address] [place] [address] [id number] 08/30/2024 Jerome Guido MD [address] [place] [address] [id number] 09/06/2024 Jerome Guido MD [address] [place] [address] [id number] 11/01/2024 Jerome Guido MD [address] [place] [address] [id number] 01/06/2025 Jerome Guido MD [address] [place] [address] [id number] 02/09/2025 Jerome Guido MD [address] [place] [address] [id number] 03/14/2025 Jerome Guido Assessments Encounter Date Diagnosis (ICD Code) Assessment Notes Treatment Notes Treatment Clinical Notes Section Notes 06/27/2024 Chronic systolic congestive heart failure (ICD-10 - I50.22) has some worse breathing. need to refer her back to dr stuart 06/27/2024 Pain in right shoulder (ICD-10 - M25.511) referral to dr wan 08/12/2024 Pain in right shoulder (ICD-10 - M25.511) is doing well after getting injections, 08/12/2024 Other chronic pain (ICD-10 - G89.29) 11/17/2024 Chronic systolic congestive heart failure (ICD-10 - I50.22) doing well . 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) will transfer by ambulance to the hospital 01/02/2025 Encounter for general adult medical examination with abnormal findings (ICD-10 - Z00.01) 02/07/2025 Chronic systolic congestive heart failure (ICD-10 - I50.22) doing well now, will continue to monitor 02/07/2025 Paroxysmal atrial fibrillation (ICD-10 - I48.0) the doctor from [place] stopped her amiodorone, will continue current regiment 06/27/2024 Other chronic pain (ICD-10 - G89.29) 08/12/2024 Paroxysmal atrial fibrillation (ICD-10 - I48.0) doing well on xarelto, will contnue current regiment 02/07/2025 Pneumonia (ICD-10 - J18.9) is doing well after treatment/ [place] [facility] [place] 06/27/2024 Weight loss (ICD-10 - R63.4) is seems it is mostly due to difficulty cooking because of walker 08/12/2024 Encounter for immunization (ICD-10 - Z23) flu vaccine admnistered 08/12/2024 Acute non-recurrent maxillary sinusitis (ICD-10 - J01.00) patient verbalized understanding of medication and directions for use Plan Of Treatment Pending Test Test Name Order Date US THYROID 06/23/2019 Future Test Test Name Order Date XR CHEST 2 VIEW PA & LAT 02/28/2025 Next Appt Details Provider Name:Jerome Orosco ier, 04/11/2025 02:00:00 PM, [address] [place] [address], [address] [place] [address], [phone], Provider Name:Jerome Orosco ier, 01/04/2026 01:45:00 PM, [address] [place] [address], Suite [facility], [place], [place], [phone], Insurance Providers Payer Name Payer Address Payer Phone Subscriber Number Group Number Insured Name Patient Relationship to Insured Coverage Start Date Coverage End Date MEDICARE NHIC RADHA [address] [place] [address] [id number] Sophie Schulz Self - patient is the insured [facility] [address] [place] [phone] [id number] Sophie Schulz Self - patient is the insured Medical (General) History Medical History History ICD Code [facility] [phone] cardio dante rory. 01/27/14 no [employer] & no mammos in years upper endo march 2018
--- OUTSIDE RECORDS SUMMARY | 2025-03-17 15:11 | XMS_ITS ---
Author Organization Jerome Guido MD Address [address] [place] [phone] Care Team Providers Care Rental Representative Name Role Phone Jerome Guido Primary Care Provider REASON FOR VISIT FYI wt and bp up Encounters Encounter Location Date Provider Diagnosis Jerome Guido MD [address] [place] [address] [id number] 03/14/2025 Jerome Guido Plan Of Treatment Next Appt Details Provider Name:Jerome Orosco iechristen, 04/11/2025 02:00:00 PM, [address], Suite [facility], [place], [place], [phone], Provider Name:Jerome perez, 01/04/2026 01:45:00 PM, [address] [facility], Suite [facility], [place], [place], [phone], Progress Notes * Sophie VIDAL EDOB: [birth year] (79 yo F)Acc No.[id number]:03/14/2025 Patient:?Sophie VIDAL :1945???Age:79 Y???Sex:Female Address:[address] [place] [address] [facility] * true * Date:? Generated for Danyelle bentley/Satish/eTransmitting on:?03/17/2025 03:10 PM EDT
== END 2025-03-17 15:08 | disposition home or self-care (01) ==
LOC: HO.CT 15:07
PROVIDERS: PCP Internal Medicine; Visit Provider Internal Medicine Cardiovascular Disease
DX: T46.2X1A Poisoning by other antidysrhythmic drugs, accidental (unintentional), initial encounter (principal); I48.19 Other persistent atrial fibrillation
CPT/HCPCS: 71250

== ENCOUNTER → 2025-03-17 15:09 | Outpatient (BNV) | payer MEDICARE, OTHER, SELFPAY | PROVIDERS: PCP Internal Medicine; Visit Provider Radiology Diagnostic Radiology | DX: E04.2 Nontoxic multinodular goiter (principal); R91.1 Solitary pulmonary nodule | CPT/HCPCS: 71250 ==

== ENCOUNTER 2025-04-05 12:43 | Outpatient (AMB) | payer MEDICARE, OTHER, SELFPAY ==
[2025-04-05 12:48] VITALS: BP 124/72; PULSE 73; BMI 22.7
--- NOTE | 2025-04-05 12:48 | A.OFFVIS_ITS ---
Vital Signs 04/05/25 12:48 Height 5 ft 8 in Weight 149 lb 0.52 oz BMI 22.7 BP 124/72 Blood Pressure Location Lt brachial Position Sitting Pulse 73 Pulse Source Pulse Oximeter Intake Visit Reasons: 3m follow up Crystal Finisher Required: No Allergies latex Allergy (Mild, Verified 04/05/25 12:50) Redness of Skin seasonal Allergy (Mild, Uncoded 04/05/25 12:50) Itchy Eyes Medication List - Last Reconciled 04/05/25 by Ankit Stuart MD acetaminophen 650 mg PO Q4H PRN albuterol sulfate 90 mcg/actuation 2 puffs PO Q4H PRN furosemide 40 mg orally 40 mg every other day and 1/2 tab 20 mg the other days; montelukast 10 mg PO BEDTIME rivaroxaban 20 mg PO DAILY HPI Comments Details: Silvia comes for follow-up. Has had 2 separate EP consult was at 2 different institution and was felt that she is not a good candidate for ablation. Amiodarone was therefore stopped. She comes for follow up and says that she has been increasingly short of breath. Today she is said very short of breath with leg swelling. She has also had weight gain. She was also intermittent symptoms of waking up night with unable to catch her breath. She denies any palpitations. No lightheadedness, syncope. She usually takes 40 mg of Lasix alternative in 20 mg of Lasix. Today was her 20 mg a day but she took 40 mg. She denies any chest pain. Denies any bleeding issues or neurologic events. [facility] Medical History (Updated 04/05/25 @ 13:28 by Ankit Stuart MD) Paroxysmal atrial fibrillation Aortic stenosis Aortic stenosis, severe History of complete heart block History of blood transfusion History of GI bleed Personal history of COVID-19 Cervical disc disorder Hx of pulmonary embolus History of DVT (deep vein thrombosis) Anemia Asthma Non-rheumatic aortic stenosis Edema, peripheral Congestive heart failure Hypertrophic cardiomyopathy Pulmonary hypertension Obesity Cardiac pacemaker in situ (~2013) CAD (coronary artery disease) (HFpEF) heart failure with preserved ejection fraction Surgical History Status post transcatheter aortic valve replacement History of cardiac cath History of heart surgery History of elbow surgery History of cardioversion History of permanent cardiac pacemaker placement Family History Father No problems noted. Mother CVD (cardiovascular disease) Social History Household Members: Family and None Household Members Other:: pt son's lives upstair Housing: House Are you a primary career and technology education teacher to a significant other at home: No Do you presently have visiting nurse or other home services: No Alcohol intake: current Alcohol intake frequency: holidays/special occasions only Alcohol type: wine Comment: Uses scooter Patient Tobacco Use Status: Former Tobacco user Tobacco use type: Cigarette Second Hand Smoke Exposure: No Advance Directives Date on File: 09/02/24 service: No Current occupational status: employed Review of Systems ENT Reports dizziness Card Denies chest pain, Denies chest pain at rest, Denies chest pain with activity, Denies rapid heart rate, Denies pedal edema, Denies edema, Reports leg edema, Denies lightheadedness, Denies palpitations, Denies dyspnea, Reports dyspnea on exertion, Denies orthopnea and Reports paroxysmal nocturnal dyspnea Resp Denies cough, Denies dyspnea and Reports dyspnea on exertion GI Denies hematochezia and Denies change in stool character Musc Denies abnormal gait, Reports limited range of motion, Reports muscle cramps, Denies muscle weakness, Denies numbness, Denies radiating pain into limb, Denies stiffness and Denies tingling Neuro Denies abnormal gait, Reports dizziness, Denies numbness and Denies tingling Endo Denies palpitations Physical Exam Vital Signs: Last Vital Signs Pulse 73 04/05/25 12:48 BP 124/72 04/05/25 12:48 BMI result Body Mass Index 22.7 Const General: cooperative, comfortable, alert, awake and in distress mild and respiratory Nutritional Appearance: other (Frail elderly woman) Orientation/consciousness: patient oriented x3 Limitations: ambulation with walker Neck Neck: Yes trachea midline, Yes supple and Yes JVD Resp Effort & Inspection: normal respiratory effort Auscultation: clear to auscultation bilaterally and diminished lung sounds Cardio Jugular venous distension: no JVD Rate: regular rate Rhythm: regular rhythm Heart sounds: S1 normal heart sound present, S2 normal heart sound present, no click, no gallops and Murmur heart sound present diastolic early Skin General skin exam: no rashes or lesions noted and ecchymosis Neuro General: patient oriented x3 and no focal motor deficits Extrem General: Yes edema Office Procedures Cardiac Device Check Cardiac Device Check Details: Dual-chamber Medtronic pacemaker in place programmed in VVIR at 70 beats per minute. Atrial fibrillation noted persistently. Ventricular pacing 99% of the time. Pacing lead impedance is stable. Capture thresholds are stable. Battery life is at 9.2 years [id number] Cardiac Device Check, pacemaker dual lead Procedure code (CPT) selection complete Assessment & Plan Assessment & Plan (1) Congestive heart failure: Code(s): I50.9 - Heart failure, unspecified Category: Medical Plan: Heart failure progressive symptoms evidence of fluid overload today. This is most likely due to persistent atrial fibrillation. This was discussed with her. She has tolerated atrial fibrillation poorly in the past. Discussed about possibly progressive heart failure syndrome related to persistent atrial fibrillation. She is not considered a candidate for rhythm control by electrophysiology at this point time. Continue with diuretic therapy. Management of heart failure was discussed. Advised to increase Lasix to 40 mg twice a day till the leg edema and areas shortness of breath improved. Will check BNP BNP and CBC today. If she does not improve or has sudden worsening in his symptoms she is advised to come to the emergency room. Will also add Jardiance 10 mg to her regimen. She has multiple comorbidities including chronic persistent atrial fibrillation, pulmonary hypertension, frailty as risk factors for recurrent hospitalization. Continue aggressive blood pressure control, currently appears well optimized. Will follow up in the clinic in 6 weeks time. (2) Persistent atrial fibrillation: Code(s): I48.19 - Other persistent atrial fibrillation Category: Medical Plan: Persistent chronic atrial fibrillation was difficult control in the past. Has had recurrent atrial fibrillation since valve replacement. Has tolerated this poorly with heart failure syndrome. However has been seen by electrophysiology both at [facility] as well as [facility] and felt not to be a candidate for atrial fibrillation ablation. Continue rate control approach which appears to be well optimized. She is off amiodarone therapy at this point time. Continue full oral anticoagulation with Xarelto 20 mg daily. Quarterly renal function test should be pursued. (3) Status post transcatheter aortic valve replacement: Comment: Evolut, 29 mm bioprosthetic valve, September 2024 Code(s): Z95.2 - Presence of prosthetic heart valve Category: Surgical Plan: Status post aortic valve replacement, working well clinically. Continue full oral anticoagulation as above. SBE prophylaxis as per ACC/aha guidelines. (4) Hypertrophic cardiomyopathy: Comment: Status post alcohol septal ablation Code(s): I42.2 - Other hypertrophic cardiomyopathy Category: Medical Plan: Prior history of hypertrophic cardiomyopathy status post septal ablation. Has had no recurrent issues with the same. (5) Cardiac pacemaker in situ: Onset Date: ~2013 Comment: (Medtronic DCPP - placed 2013, generator change 02/2022) Code(s): Z95.0 - Presence of cardiac pacemaker Category: Medical Plan: Cardiac pacemaker in-situ, working well. Will continue follow remotely. (6) CAD (coronary artery disease): Comment: Cardiac catheterization pre TAVR showed 60% disease in LAD, 40-50% disease in circumflex and 90% disease at the ostium of the RPL Code(s): I25.10 - Atherosclerotic heart disease of [place] coronary artery without angina pectoris Category: Medical Plan: CAD with prior diffuse disease. Currently being managed with medical therapy. Currently on full oral anticoagulation with Xarelto and therefore would avoid aspirin therapy. Continue aggressive risk factor modification. Goal LDL less than 70 mg/dL. Will follow up in the clinic in 6 weeks time. Greater than 30 minutes was spent in managing his complex care Orders: Orders Basic Metabolic Panel Today I50.9 - Heart failure, unspecified B Type Natriuretic Peptide Today I50.9 - Heart failure, unspecified Complete Blood Count no Diff Today I50.9 - Heart failure, unspecified Medications: New furosemide 1-2 tablets daily; 60 tabs 0RF empagliflozin (Jardiance) 10 mg PO DAILY 30 tabs 5RF Coding Level of Care Code Est Pt Level 5 (87043) Complex EM visit Add On G2211 Diagnoses Congestive heart failure I50.9 Persistent atrial fibrillation I48.19 Status post transcatheter aortic valve replacement Z95.2 Hypertrophic cardiomyopathy I42.2 Cardiac pacemaker in situ Z95.0 CAD (coronary artery disease) I25.10 CPT Codes Cardiac Device Check - Cardiac Device 2: [id number] Cardiac Device Check, pacemaker dual lead ([id number])
--- OUTSIDE RECORDS SUMMARY | 2025-04-05 13:24 | XMS_ITS ---
Author Organization Jerome Guido MD Address [address] [place] [phone] Care Team Providers Care Pcmh Specialist Name Role Phone Jerome Guido Primary Care Provider Encounters Encounter Location Date Provider Diagnosis Jerome Guido MD [address] [facility] [address] [place] [address] [id number] 03/24/2025 Jerome Guido Plan Of Treatment Next Appt Details Provider Name:Jerome perez, 04/11/2025 02:00:00 PM, [address] [place] [address], Suite [facility], [place], [place], [phone], Provider Name:Jerome perez, 01/04/2026 01:45:00 PM, [address] [place] [address], Suite [facility], [place], [place], [phone], Progress Notes * Sophie VIDAL EDOB: [birth year] (79 yo F)Acc No.[id number]:03/24/2025 Patient:?Sophie VIDAL :1945???Age:79 Y???Sex:Female Address:[address] [place] [address] [facility] [phone] * true * Date:? Generated for Danyelle bentley/Satish/eTkylahsmitting on:?04/05/2025 01:24 PM EDT
== END 2025-04-05 13:22 | disposition home or self-care (01) ==
LOC: HO.HCS 12:44
PROVIDERS: PCP Internal Medicine; Visit Provider Internal Medicine Cardiovascular Disease
DX: I50.9 Heart failure, unspecified (principal); I48.19 Other persistent atrial fibrillation; Z95.2 Presence of prosthetic heart valve; I42.2 Other hypertrophic cardiomyopathy; Z95.0 Presence of cardiac pacemaker; I25.10 Atherosclerotic heart disease of native coronary artery without angina pectoris
CPT/HCPCS: 93280; 99214; G2211

== ENCOUNTER 2025-04-05 12:43 | Outpatient (REF) | payer MEDICARE, OTHER, SELFPAY ==
[2025-04-05 15:20] LABS: Hematocrit 30.7 % (37.0-47.0); Mean Corpuscular HGB Conc 29.3 g/dl (31.0-35.0); Mean Corpuscular Hemoglobin 23.4 pg (27.0-33.0); Mean Corpuscular Volume 79.7 fL (80.0-98.0); Mean Platelet Volume 9.3 fL (9.4-12.3); Platelet Count 378 X10*3/uL (160-400); Red Blood Count 3.85 X10*6/uL (4.20-5.50); Red Cell Distribution Width 18.8 % (11.0-16.0); White Blood Count 6.2 X10*3/uL (4.8-10.8)
[2025-04-05 15:46] LABS: B Type Natriuretic Peptide 228 pg/mL (<100)
[2025-04-05 15:49] LABS: Anion Gap 15 (12-20); Blood Urea Nitrogen 22 mg/dL (9-16); Calcium 8.8 mg/dL (8.4-10.2); Carbon Dioxide 22 mmol/L (22-29); Chloride 109 mmol/L (96-108); Estimated Glomerular Filt Rate > 60; Glucose Random 88 mg/dL (60-115); Sodium 142 mmol/L (135-145)
== END 2025-04-05 12:44 | disposition home or self-care (01) ==
LOC: HO.LAB 12:43
PROVIDERS: PCP Internal Medicine; Visit Provider Internal Medicine Cardiovascular Disease
DX: I48.19 Other persistent atrial fibrillation (principal); I50.9 Heart failure, unspecified; Z95.2 Presence of prosthetic heart valve; I42.2 Other hypertrophic cardiomyopathy; Z95.0 Presence of cardiac pacemaker; I25.10 Atherosclerotic heart disease of native coronary artery without angina pectoris
CPT/HCPCS: 36415; 80048; 83880; 85027; 93280; 99212

== ENCOUNTER 2025-04-20 15:02 | Outpatient (REF) | payer MEDICARE, OTHER, SELFPAY ==
[2025-04-20 15:17] LABS: Anion Gap 14 (12-20); Blood Urea Nitrogen 31 mg/dL (9-16); Calcium 9.4 mg/dL (8.4-10.2); Carbon Dioxide 28 mmol/L (22-29); Chloride 100 mmol/L (96-108); Estimated Glomerular Filt Rate 42; Glucose Random 131 mg/dL (60-115); Potassium 3.2 mmol/L (3.3-5.1); Sodium 139 mmol/L (135-145)
[2025-04-20 15:40] LABS: B Type Natriuretic Peptide 221 pg/mL (<100)
--- OUTSIDE RECORDS SUMMARY | 2025-04-20 17:41 | XMS_ITS | Continuity of Care Document ---
Author Organization [facility] Address [address] [place] [phone] Care Team Providers Care Corrective And Manual Arts Therapist Name Role Phone Jerome Guido MD Primary Care Physician [phone] Encounter [facility] Date(s): 01/24/25 - 04/19/[address] Attending Physician: Zhang Rivera MD Admitting Physician: Zhang Rivera MD Referring Physician: Sade ORTIZ, Ankit R Encounter Type: Pre-OutPatient One Time Allergies, Adverse [...] 4:10:00 PM EST, Route to Pharmacy Electronically, [facility], Partial fill upon [...] 9:50:00 AM EST, Route to Pharmacy Electronically, [facility], Partial fill upon [...] Position: Reference Physician Member Role: PCP Address: [address] [place] [address] Jerome Guido MD [address] Telecom: [phone] Name: Philip Obrien RN Position: [facility] ED RN W/OE and Tasks Member Role: Primary Care Nurse Name: Harshal Harrison RN Position: S RN Member Role: Primary Care Nurse Name: Sarah Hand RN Position: S RN Member Role: Primary Care Nurse Care Team Related Persons Name: HOMER VIDAL Insurance Providers Guarantor name: MILIND VIDAL Health Plan Information #: 1 Payer: MEDICARE B Payer Identifier: NA Member Number: [id number] Group Number: NA Subscriber Identifier: [id number] Relationship to Subscriber: self Coverage Type: NA Coverage Verification Date: NA Telecom: NA Address: Health Plan Information #: 2 P[facility] Payer Identifier: NA Member Number: [id number] Group Number: [id number] Subscriber Identifier: [id number] Relationship to Subscriber: self Coverage Type: Commercial Indemnity Coverage Verification Date: NA Telecom: NA Address:
== END 2025-04-20 15:03 | disposition home or self-care (01) ==
LOC: HO.LNP 15:02
PROVIDERS: Visit Provider Internal Medicine
DX: I50.22 Chronic systolic (congestive) heart failure (principal)
CPT/HCPCS: 80048; 83880

== ENCOUNTER 2025-05-09 15:18 | Outpatient (REF) | payer MEDICARE, OTHER, SELFPAY ==
--- OUTSIDE RECORDS SUMMARY | 2025-05-09 10:00 | XMS_ITS ---
Author Organization Jerome Guido MD Address [address] [place], [place] [phone] Care Team Providers Care Garnisher Name Role Phone Jerome Guido Primary Care Provider [phone] Allergies No Known Allergies Results Component Value Reference Range Notes Potassium (Not yet reviewed by provider) Interpretation: Performing Lab:[facility], [address] [place] [phone] Notes/Report: Potassium 4.1 3.3-5.1 mmol/L Blood Urea Nitrogen (Not yet reviewed by provider) Interpretation: Performing Lab:[facility], [address] [place] [phone] Notes/Report: Blood Urea Nitrogen 37 9-16 mg/dL Creatinine (Not yet reviewed by provider) Interpretation: Performing Lab:[facility], [address] [place] [phone] Notes/Report: Creatinine 1.28 0.5-1.4 mg/dL Estimated Glomerular [...] kg/m2 05/09/2025 weight is down 2 pounds [facility] 04-20-25 Encounters Encounter Location Date Provider Diagnosis Jerome Guido MD [address] [place] [address] [place] [phone] 05/09/2025 Jerome Guido Hypokalemia E87.6 ; Elevated BUN R79.9 and Chronic systolic congestive heart failure I50.22 Assessments Encounter Date Diagnosis (ICD Code) Assessment Notes Treatment Notes Treatment Clinical Notes Section Notes 05/09/2025 Hypokalemia (ICD-10 - E87.6) 05/09/2025 Elevated BUN (ICD-10 - R79.9) 05/09/2025 Chronic systolic congestive heart failure (ICD-10 - I50.22) doing much better on the metolozone Plan Of Treatment Treatment Notes Assessment Notes Chronic systolic congestive heart failur e doing much better on the metolozone Pending Test Test Name Order Date Potassium 05/09/2025 Blood Urea Nitrogen 05/09/2025 Creatinine 05/09/2025 Next Appt Details Follow Up: 2 Months, Reason: Provider Name:Jerome Orosco ier, 07/11/2025 01:30:00 PM, [address], [address], [place], [place], [phone], Provider Name:Jerome Orosco ier, 01/04/2026 01:45:00 PM, [address], [address], [place], [place], [phone], Progress Notes * Servando VIDALude EDOB: [birth year] (79 yo F)Acc No.[id number]:05/09/2025 Progress Notes Patient: Sophie VERDE Provider: Arjun Guido MD :1945 A ge:79 Y S ex:Female Date:05/09/2025 Address:[address] [place] [phone] Subjective: * Chief Complaints: * 1 . 3 week. * HPI: S ymptom(s): patient is a [...] D enies N ausea. 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 * Medications: T aking Jardiance 10 MG Tablet 1 tablet Orally Once a day , Taking amLODIPine Besylate 10 MG Tablet 0.5 tablet Orally Once a day , Taking Albuterol Sulfate HFA 108 (90 Base) MCG/ACT Aerosol Solution INHALE 1 PUFF BY MOUTH EVERY 4 HOURS NEEDED , Taking Furosemide 40 MG Tablet 1 tablet Orally Once a day , Taking Xarelto 20 MG Tablet TAKE 1 TABLET BY MOUTH EVERY DAY WITH FOOD Orally Once a day , Taking Montelukast Sodium 10 MG Tablet TAKE 1 TABLET BY MOUTH EVERY DAY , Taking Amoxicillin-Pot Clavulanate 875-125 MG Tablet 1 tablet Orally every 12 hrs , Taking metOLazone 5 MG Tablet 1 tablet Orally Two times a Week , Taking Klor-Con 10 10 MEQ Tablet Extended Release 1 tablet with food Orally once a day , Not-Taking/PRN Ferrous Sulfate 324 (65 Fe) MG Tablet Delayed Release 1 tablet Orally twice a day , Not-Taking/PRN Advair Diskus 250-50 MCG/DOSE Aerosol Powder Breath Activated INHALE 1 PUFF BY MOUTH TWICE DAILY , Medication List reviewed and reconciled with the patient * Allergies: N .K.D.A. Objective: * Vitals: H t: 66, Wt: [...] Date & Time - 05/09/2025 02:00 PM) 3. C hronic systolic congestive heart failure Notes: doing much better on the metolozone * Procedure Codes: 3 6415 VENIPUNCT, ROUTINE* * Follow Up: 2 Months * * The named appointment provid er may or may not be the originator of this progress note, and it is not deemed complete until electronically signed by the appointment provider. Sign off status: Pending * Provider: Arjun Guido MD Date: 05/09/2025 Generated for Danyelle bentley/Satish/Reneitting on: 05/09/2025 04:05 PM EDT History and Physical Notes * [...]
[2025-05-09 15:42] LABS: Blood Urea Nitrogen 37 mg/dL (9-16); Estimated Glomerular Filt Rate 40; Potassium 4.1 mmol/L (3.3-5.1)
== END 2025-05-09 15:19 | disposition home or self-care (01) ==
LOC: HO.LNP 15:18
PROVIDERS: Visit Provider Internal Medicine
DX: E87.6 Hypokalemia (principal); R79.9 Abnormal finding of blood chemistry, unspecified
CPT/HCPCS: 82565; 84132; 84520

== ENCOUNTER 2025-05-11 14:55 | Outpatient (AMB) | payer MEDICARE, OTHER, SELFPAY ==
--- OUTSIDE RECORDS SUMMARY | 2025-05-09 10:00 | XMS_ITS ---
Author Organization Jerome Guido MD Address [address] [place], [place] [phone] Care Team Providers Care Office Nurse Name Role Phone Jerome Guido Primary Care Provider Allergies No Known Allergies Results Component Value Reference Range Notes Potassium Reviewed date:05/09/2025 04:30:07 PM Interpretation: Performing Lab:[facility], [address] [place] [phone] Notes/Report: Potassium 4.1 3.3-5.1 mmol/L Blood Urea Nitrogen Reviewed date:05/11/2025 07:34:04 AM Interpretation: Performing Lab:[facility], [address] [place] [phone] Notes/Report: Blood Urea Nitrogen 37 9-16 mg/dL Creatinine Reviewed date:05/09/2025 04:29:36 PM Interpretation: Performing Lab:[facility], [address] [place] [phone] Notes/Report: Creatinine 1.28 0.5-1.4 mg/dL Estimated Glomerular [...] kg/m2 05/09/2025 weight is down 2 pounds [facility] 04-20-25 Encounters Encounter Location Date Provider Diagnosis Jerome Guido MD [address] [place], [place] [phone] 05/09/2025 Jerome Guido Hypokalemia E87.6 ; Elevated [...] Reason: Provider Name:Jerome perez, 05/26/2025 08:45:00 AM, [address] [place] [address], [address] [place] [address], [id number], Provider Name:Jerome perez, 07/11/2025 01:30:00 PM, [address] [place] [address], Suite [facility], [place], [place], [phone], Provider Name:Jerome perez, 01/04/2026 01:45:00 PM, [address] [place] [address], Suite [facility], [place], [place], [phone], Progress Notes * OSMINJOSSIE Sophie EDOB: [birth year] (79 yo F)Acc No.[id number]:05/09/2025 Progress Notes Patient: Sophie VERDE Provider: Arjun Guido MD :1945 A ge:79 Y S ex:Female Date:05/09/2025 Address:[address] [place] [address] JAV[id number] Subjective: * Chief Complaints: * 3 week [...] 05/09/2025 Generated for Danyelle bentley/Satish/eTransmitting on: 0 05/11/2025 02:58 PM EDT History and Physical Notes * [...]
--- NOTE | 2025-05-11 15:07 | A.OFFVIS_ITS ---
Vital Signs 05/11/25 15:08 Height 5 ft 8 in Weight 129 lb 10.109 oz BMI 19.7 BP 100/62 Blood Pressure Location Rt brachial Position Sitting Pulse 71 Pulse Source Pulse Oximeter Intake Visit Reasons: 6 wk f/up labs/ new meds Professional Architect Required: No Allergies latex Allergy (Mild, Verified 05/11/25 15:11) Redness of Skin seasonal Allergy (Mild, Uncoded 05/11/25 15:11) Itchy Eyes Medication List - Last Reconciled 05/11/25 by Yaya Bear NP acetaminophen 650 mg PO Q4H PRN albuterol sulfate 90 mcg/actuation 2 puffs PO Q4H PRN amlodipine 5 mg PO DAILY empagliflozin (Jardiance) 10 mg PO DAILY furosemide 20 mg PO DAILY metolazone 5 mg PO DAILY montelukast 10 mg PO BEDTIME potassium chloride ER 10 mEq PO DAILY rivaroxaban 20 mg PO DAILY HPI Comments Details: This is a 79-year-old female patient coming in for a follow-up visit. Patient with history of AFib, coronary artery disease, complete heart block status post pacemaker in 2013, and severe aortic stenosis status post TAVR in 2023. Patient was recently seen in the office with Dr. Stuart where she patient had increased shortness of breath with leg swelling. Patient was previously taking 40 mg of Lasix every other day and 20 mg the other days. At her last visit, in due to her symptoms of fluid overload, patient was requested to increase her Lasix to 40 mg twice daily until her symptoms improved. Since then, patient states that she has lost a lot of weight and independently when down to 20 mg daily for the Lasix. Patient continued to have issues with leg swelling and states that her PCP recently started metolazone 5 mg twice a week. Today, patient reports other than her chronic fatigue, is denying any cardiac symptoms of exertional chest pain, shortness of breath, palpitations, dizziness, orthopnea, PND, leg edema, presyncope, or syncope. Patient states she is compliant with all her medications. [facility] Medical History Paroxysmal atrial fibrillation Aortic stenosis Aortic stenosis, severe History of complete heart block History of blood transfusion History of GI bleed Personal history of COVID-19 Cervical disc disorder Hx of pulmonary embolus History of DVT (deep vein thrombosis) Anemia Asthma Non-rheumatic aortic stenosis Edema, peripheral Congestive heart failure Hypertrophic cardiomyopathy Pulmonary hypertension Obesity Cardiac pacemaker in situ (~2013) CAD (coronary artery disease) (HFpEF) heart failure with preserved ejection fraction Surgical History Status post transcatheter aortic valve replacement History of cardiac cath History of heart surgery History of elbow surgery History of cardioversion History of permanent cardiac pacemaker placement Family History Father No problems noted. Mother CVD (cardiovascular disease) Social History Household Members: Family and None Household Members Other:: pt son's lives upstair Housing: House Are you a primary urgent care technician to a significant other at home: No Do you presently have visiting nurse or other home services: No Alcohol intake: current Alcohol intake frequency: holidays/special occasions only Alcohol type: wine Comment: Uses scooter Patient Tobacco Use Status: Former Tobacco user Tobacco use type: Cigarette Second Hand Smoke Exposure: No Advance Directives Date on File: 09/02/24 service: No Current occupational status: employed Review of Systems E[employer] Reports dizziness Card Denies chest pain, Denies chest pain at rest, Denies chest pain with activity, Denies rapid heart rate, Denies pedal edema, Denies edema, Denies leg edema, Denies lightheadedness, Denies palpitations, Denies dyspnea, Denies dyspnea on exertion and Denies orthopnea Resp Denies cough, Denies dyspnea and Denies dyspnea on exertion GI Denies hematochezia and Denies change in stool character Musc Denies abnormal gait, Reports limited range of motion, Reports muscle cramps, Denies muscle weakness, Denies numbness, Denies radiating pain into limb, Denies stiffness and Denies tingling Neuro Denies abnormal gait, Reports dizziness, Denies numbness and Denies tingling Endo Denies palpitations Physical Exam Vital Signs: Last Vital Signs Pulse 71 05/11/25 15:08 BP 100/62 05/11/25 15:08 BMI result Body Mass Index 19.7 Const General: cooperative, comfortable and no acute distress Orientation/consciousness: patient oriented x3 HEENT Head: Yes normal to inspection Neck Neck: Yes normal visual inspection, Yes trachea midline and Yes supple Chest Chest palpation & inspection: normal inspection of the chest Resp Effort & Inspection: normal respiratory effort Auscultation: clear to auscultation bilaterally, no crackles, no rales, no rhonchi and no wheezes Cardio Jugular venous distension: no JVD Palpation: normal PMI Rate: regular rate Rhythm: regular rhythm Heart sounds: S1 normal heart sound present, S2 normal heart sound present, no click, no gallops, Murmur heart sound present diastolic and no rubs Peripheral pulses: Peripheral pulses 2+ throughout GI Inspection: Yes normal to inspection Palpation (GI): Soft to palpation Auscultation: normal bowel sounds Skin General skin exam: no rashes or lesions noted Neuro General: patient oriented x3 Extrem General: Yes normal to inspection, No no pedal edema and No calf tenderness Psych Appearance: grossly normal Mental Status: mental status grossly normal Speech and movement: Normal speech and movement present Assessment & Plan Assessment & Plan (1) (HFpEF) heart failure with preserved ejection fraction: Code(s): I50.30 - Unspecified diastolic (congestive) heart failure Category: Medical Plan: Patient has been taking 20 mg Lasix daily and was recently added on metolazone 5 mg twice a week by PCP. Clinically stable and euvolemic today. We will discontinue both Lasix and metolazone and start patient on 1 mg Bumex daily. Advised patient to take additional tablet in case of increased leg swelling, shortness of breath, or weight gain. Discussed in detail about signs and symptoms to watch for with heart failure. Advised low-salt diet, fluid restriction at 1.5-2 L daily, and daily weight monitoring at home. Patient states she recently did her labs with PCP which we will request. We will also get labs again in 2 weeks to check for electrolyte imbalance and kidney dysfunction. (2) CAD (coronary artery disease): Comment: Cardiac catheterization pre TAVR showed 60% disease in LAD, 40-50% disease in circumflex and 90% disease at the ostium of the RPL Code(s): I25.10 - Atherosclerotic heart disease of koi coronary artery without angina pectoris Category: Medical Plan: Continued Xarelto for full anticoagulation therapy. Continue heart healthy diet and aggressive management of vascular risk factors. LDL goal less than 70. (3) Persistent atrial fibrillation: Code(s): I48.19 - Other persistent atrial fibrillation Category: Medical Plan: Previously evaluated by EP for ablation and was considered not a candidate for the catheter ablation. Continue Xarelto. (4) Status post transcatheter aortic valve replacement: Comment: Evolut, 29 mm bioprosthetic valve, September 2024 Code(s): Z95.2 - Presence of prosthetic heart valve Category: Medical Plan: Continue Xarelto. (5) Cardiac pacemaker in situ: Onset Date: ~2013 Comment: (Medtronic DCPP - placed 2013, generator change 02/2022) Code(s): Z95.0 - Presence of cardiac pacemaker Category: Medical Plan: We will continue to monitor patient remotely. Advised heart healthy diet, regular exercise as tolerated, med compliance, and management of vascular risk factors. We will follow up in 1 month. In the interim, patient will call the office with any concerns or change in symptoms. Reviewed case with Dr. Stuart. This note was generated using voice recognition software. While every effort has been made to ensure accuracy and proper tonnage compilation clerk, there may be occasional errors that could affect the content or meaning of the described symptoms. Orders: Orders Basic Metabolic Panel Today I50.30 - Unspecified diastolic (congestive) heart failure Medications: New bumetanide 1 mg PO DAILY 90 tabs 3RF Coding Level of Care Code Est Pt Level 4 (62568) Complex EM visit Add On G2211 Diagnoses (HFpEF) heart failure with preserved ejection fraction I50.30 CAD (coronary artery disease) I25.10 Persistent atrial fibrillation I48.19 Status post transcatheter aortic valve replacement Z95.2 Cardiac pacemaker in situ Z95.0 Time Spent (min) 36 Comment Time spent in reviewing the chart, test results, assessment, counseling and documentation.
[2025-05-11 15:08] VITALS: BP 100/62; PULSE 71; BMI 19.7
== END 2025-05-11 16:16 | disposition home or self-care (01) ==
LOC: HO.HCS 14:56
PROVIDERS: PCP Internal Medicine
DX: I50.30 Unspecified diastolic (congestive) heart failure (principal); I25.10 Atherosclerotic heart disease of native coronary artery without angina pectoris; I48.19 Other persistent atrial fibrillation; Z95.2 Presence of prosthetic heart valve; Z95.0 Presence of cardiac pacemaker
CPT/HCPCS: 99214; G2211

== ENCOUNTER → 2025-05-11 14:55 | Outpatient (BNVA) | payer MEDICARE, OTHER, SELFPAY | PROVIDERS: PCP Internal Medicine | DX: I25.10 Atherosclerotic heart disease of native coronary artery without angina pectoris (principal); I50.30 Unspecified diastolic (congestive) heart failure; I48.19 Other persistent atrial fibrillation; Z95.2 Presence of prosthetic heart valve; Z95.0 Presence of cardiac pacemaker | CPT/HCPCS: 99212 ==

== ENCOUNTER 2025-05-16 09:56 | Outpatient (AMB) | payer MEDICARE, OTHER, SELFPAY ==
--- OUTSIDE RECORDS SUMMARY | 2025-05-09 10:00 | XMS_ITS ---
Author Organization Jerome Guido MD Address [address] [place], [place] [id number] Care Team Providers Care Flexographic Press Set Up Operator Name Role Phone Jerome Guido Primary Care Provider Allergies No Known Allergies Results Component Value Reference Range Notes Potassium Reviewed date:05/09/2025 04:30:07 PM Interpretation: Performing Lab:[facility], [address] [place] [phone] Notes/Report: Potassium 4.1 3.3-5.1 mmol/L Blood Urea Nitrogen Reviewed date:05/11/2025 07:34:04 AM Interpretation: Performing Lab:[facility], [address] [place] [phone] Notes/Report: Blood Urea Nitrogen 37 9-16 mg/dL Creatinine Reviewed date:05/09/2025 04:29:36 PM Interpretation: Performing Lab:[facility], [address] [place] [phone] Notes/Report: Creatinine 1.28 0.5-1.4 mg/dL Estimated Glomerular [...] kg/m2 05/09/2025 weight is down 2 pounds [facility] 04-20-25 Encounters Encounter Location Date Provider Diagnosis Jerome Guido MD [address] [place], [place] [phone] 05/09/2025 Jerome Guido Hypokalemia E87.6 ; Elevated [...] Up: 2 Months, Reason: Provider Name:Jerome perez, 05/26/2025 08:45:00 AM, [address] [place] [address], [address] [place] [address], [id number], Provider Name:Jerome perez, 07/11/2025 01:30:00 PM, [address] [place] [address], Suite [facility], [place], [place], [phone], Provider Name:Jerome perez, 01/04/2026 01:45:00 PM, [address] [place] [address], Suite [facility], [place], [place], [phone], Progress Notes * OSMINJOSSIE Sophie EDOB: [birth year] (79 yo F)Acc No.[id number]:05/09/2025 Progress Notes Patient: Sophie VERDE Provider: Arjun Guido MD :1945 A ge:79 Y S ex:Female Date:05/09/2025 Address:[address] [place] [address] [id number] Subjective: * Chief Complaints: * 3 week [...] true * Provider: Arjun Guido MD Date: 05/09/2025 Generated for Danyelle bentley/Satish/eTransmitting on: 0 05/16/2025 10:40 AM EDT History and Physical Notes * HPI [...]
--- NOTE | 2025-05-16 10:00 | A.OFFVIS_ITS ---
Vital Signs 05/16/25 10:01 Height 5 ft 8 in BP 96/64 Blood Pressure Location Lt brachial Position Sitting Pulse 78 Pulse Source Pulse Oximeter Pulse Oximetry (%) 96 Oxygen Delivery Method Room Air Intake Visit Reasons: Thyroid Nodule Intake Note: New patient present today for Thyroid Nodule. Optical Instrument Specialist Required: No Accompanied by: Son Allergies latex Allergy (Mild, Verified 05/16/25 10:07) Redness of Skin seasonal Allergy (Mild, Uncoded 05/16/25 10:07) Itchy Eyes Medication List - Last Reconciled 05/16/25 by Geneva Holly MD acetaminophen 650 mg PO Q4H PRN albuterol sulfate 90 mcg/actuation 2 puffs PO Q4H PRN amlodipine 5 mg PO DAILY bumetanide 1 mg PO DAILY empagliflozin (Jardiance) 10 mg PO DAILY furosemide 40 mg PO DAILY montelukast 10 mg PO BEDTIME potassium chloride ER 10 mEq PO DAILY rivaroxaban 20 mg PO DAILY HPI Comments Details: 79 yo female here today for initial evaluation of MNG. Otherwise medical history significant for aortic stenosis, pulmonary HTN, Afib. Has had history of thyroid nodules at least since 2015, last thyroid ultrasound done September 2024, I reviewed the images myself which showed a left superior 1.1 cm solid hypoechoic TR 4 nodule, another left superior 1.7 cm solid taller than wide nodule with macrocalcifications, TR 5 category, this meets criteria for FNA. A left mid 1.9 cm solid hypoechoic TR 4 category nodule, this also meets criteria for FNA. A left inferior 1.4 cm solid irregular nodule with microcalcifications, TR 4 category. Meets criteria for follow up. And isthmus 1.5 cm solid hypoechoic TR 4 category nodule also meets criteria for FNA. She has never had a biopsy Patient currently denies heat or cold intolerance, diarrhea or constipation, hair loss, palpitation, anxiety, weight changes, mood changes,, changes in appearance of eyes or vision changes, tremors, increased diaphoresis or dry skin. ?Low energy. Weight fluctuates with fluid retention Patient denies any difficulty swallowing, pain on swallowing. Some hoarseness here and there difficulty breathing when laying down flat due to heart and lung conditions Patient denies any history of childhood neck radiation. Had radiation to skull as a baby? Denies having ever used lithium, or biotin supplements. Was on amiodarone for 20 or so years discontinued Dec 2024 Patient denies any family history of thyroid cancer. Mother and aunt had hypothyroidism Quit smoking 20 years ago, smoked for many years ALcohol: one drink a week No drug use Physical exam General: sitting comfortably in no acute distress HEENT: normocephalic/atraumatic,\ Neck: supple, palpable 1 cm isthmus nodule Cardiac: normal heart sounds Pulm: normal breath sounds B/L, no added breath sounds Abd: not distended, no tenderness Extremities: no edema, no signs of myxedema Neuro: AAO x3, Speech: normal, no facial droop, moving all 4 extremities Laboratory Tests 01/26/24 16:21 TSH 1.85 US THYROID 09/21/24 CLINICAL INFORMATION: Nontoxic single thyroid nodule. COMPARISON: Thyroid ultrasound 11/14/2015. TECHNIQUE: Linear transducer grayscale and color Doppler examination with attention to the region of the thyroid. FINDINGS: SIZE: Measurements of the thyroid lobes and nodules are given in sagittal, anteroposterior and transverse dimensions respectively. Right Thyroid Lobe: 5.8 x 3.0 x 1.4 cm, volume 11.0 mL. Previously 4.9 x 2.4 x 2.1 cm, volume 13 mL. Parenchyma: The gland echotexture is heterogeneous. Thyroid vascularity is increased. Left Thyroid Lobe: 5.2 x 3.1 x 1.9 cm, volume 15.1 mL. Previously 6.0 x 2.1 x 2.7 cm, volume 16 mL. Parenchyma: The gland echotexture is heterogeneous. Thyroid vascularity is increased. Isthmus: 0.7 cm in maximum AP dimension. Previously 0.5 cm. Estimated total number of nodules greater than or equal to 1 cm: 6 to 10. Medical Affairs Manager nodules are described as follows: 1. Location: Left superior. Size: 1.1 x 1.0 x 1.1 cm, volume 0.67 mL. Previously: Unable to compare to previous. Nodule characteristics: Composition: Solid (2). Echogenicity: Hypoechoic (2). Shape: Not taller than wide (0). Margins: Smooth (0). Echogenic Foci: None (0). ACR TI-RADS total points: 4 ACR TI-RADS category: 4 2. Location: Left superior. Size: 1.6 x 1.7 x 1.3 cm, volume 1.90 mL. Previously: Unable to compare to previous. Nodule characteristics: Composition: Solid (2). Echogenicity: Cannot be determined (1). Shape: Taller than wide (3). Margins: Smooth (0). Echogenic Foci: Macrocalcifications (1). Peripheral calcifications (2). ACR TI-RADS total points: 9 ACR TI-RADS category: 5 3. Location: Left mid. Size: 1.9 x 1.3 x 1.3 cm, volume 1.57 mL. Previously: Unable to compare to previous. Nodule characteristics: Composition: Solid (2). Echogenicity: Hypoechoic (2). Shape: Not taller than wide (0). Margins: Smooth (0). Echogenic Foci: None (0). ACR TI-RADS total points: 4 ACR TI-RADS category: 4 4. Location: Left inferior. Size: 1.3 x 1.0 x 1.4 cm, volume 0.98 mL. Previously: Unable to compare to previous. Nodule characteristics: Composition: Solid (2). Echogenicity: Cannot be determined (1). Shape: Not taller than wide (0). Margins: Irregular (2). Echogenic Foci: Macrocalcifications (1). ACR TI-RADS total points: 6 ACR TI-RADS category: 4 5. Location: Very low isthmus. Size: 1.4 x 1.5 x 1.5 cm, volume 1.67 mL. Previously: Unable to compare to previous. Nodule characteristics: Composition: Solid (2). Echogenicity: Hypoechoic (2). Shape: Not taller than wide (0). Margins: Smooth (0). Echogenic Foci: None (0). ACR TI-RADS total points: 4 ACR TI-RADS category: 4 NODES: No lymphadenopathy is seen in the tissue surrounding the thyroid gland. US/US thyroid IMPRESSION: 1. Enlarged heterogeneous hypervascular thyroid with multiple nodules. 2. The 1.7 cm left upper pole nodule, 1.9 cm left mid pole nodule and 1.5 cm isthmic nodule should undergo biopsy. [facility] Medical History Paroxysmal atrial fibrillation Aortic stenosis Aortic stenosis, severe History of complete heart block History of blood transfusion History of GI bleed Personal history of COVID-19 Cervical disc disorder Hx of pulmonary embolus History of DVT (deep vein thrombosis) Anemia Asthma Non-rheumatic aortic stenosis Edema, peripheral Congestive heart failure Hypertrophic cardiomyopathy Pulmonary hypertension Obesity Cardiac pacemaker in situ (~2013) CAD (coronary artery disease) (HFpEF) heart failure with preserved ejection fraction Surgical History Status post transcatheter aortic valve replacement History of cardiac cath History of heart surgery History of elbow surgery History of cardioversion History of permanent cardiac pacemaker placement Family History Father No problems noted. Mother CVD (cardiovascular disease) Social History Household Members: Family and None Household Members Other:: pt son's lives upstair Housing: House Are you a primary client care coordinator to a significant other at home: No Do you presently have visiting nurse or other home services: No Alcohol intake: current Alcohol intake frequency: holidays/special occasions only Alcohol type: wine Comment: Uses scooter Patient Tobacco Use Status: Former Tobacco user Tobacco use type: Cigarette Second Hand Smoke Exposure: No Advance Directives Date on File: 09/02/24 service: No Current occupational status: employed Physical Exam Vital Signs: Last Vital Signs Pulse 78 05/16/25 10:01 BP 96/64 05/16/25 10:01 Pulse Ox 96 05/16/25 10:01 Oxygen Delivery Method Room Air 05/16/25 10:01 Assessment & Plan Assessment & Plan (1) Multinodular goiter (nontoxic): Code(s): E04.2 - Nontoxic multinodular goiter Category: Medical Plan: 79 yo female with no family history of thyroid cancer, with no personal history of head or neck radiation here today for initial evaluation of MNG. Otherwise medical history significant for aortic stenosis, pulmonary HTN, Afib. Has had history of thyroid nodules at least since 2015, last thyroid ultrasound done September 2024, I reviewed the images myself which showed a left superior 1.1 cm solid hypoechoic TR 4 nodule, another left superior 1.7 cm solid taller than wide nodule with macrocalcifications, TR 5 category, this meets criteria for FNA. A left mid 1.9 cm solid hypoechoic TR 4 category nodule, this also meets criteria for FNA. A left inferior 1.4 cm solid irregular nodule with microcalcifications, TR 4 category. Meets criteria for follow up. And isthmus 1.5 cm solid hypoechoic TR 4 category nodule also meets criteria for FNA. She has never had a biopsy Normal TSH from January 2024. She does not have any significant compressive symptoms. I explained that it is common to have thyroid nodules. About 95% of the time these nodules are benign. However if the nodule is > 1 cm in size or suspicious on ultrasound then a fine need aspiration biopsy is recommended. We discussed that a FNAB involves 4-5 passes with a small gauge needle and material obtained is sent off for cytology.If the cytopathology is benign then the nodule will be followed annually with repeat ultrasounds. However if it is suspicious or m alignant, we will need to discuss further management. Indeterminate cytology can be further investigated with repeat FNA, genetic testing or empiric lobectomy. Malignant cytology is managed with either lobectomy or total thyroidectomy. We discussed briefly that thyroid cancer is, in most patients, an indolent disease that does not affect mortality. At this point we had an extensive discussion given patient's age and her comorbidities, she would not be a good surgical candidate. We discussed option of proceeding with biopsy anyway, versus surveillance ultrasound to keep an eye on this. Especially given if you do find cancer on biopsy, she would not be a good surgical candidate. And because 95% of the time these nodules are benign, and when we do find thyroid cancer in most cases it is an indolent slow growing disease, and given her age and multiple comorbidities, the risk of surgery would be too high for her, we mutually decided to do surveillance ultrasounds for now. She is aware of the 5-10% risk of cancer in these nodules which could potentially even though low likelihood spread and result in , however at this time we weighed the risks and benefit in a great detail and it was decided to stick with surveillance ultrasound. Plan: -ordered TSH with reflex free T4 to be done now, we will reach out if results are abnormal -ordered ultrasound of the thyroid to be done in April 2026 prior to follow up in May 2026 All questions were answered. Patient was appreciative of the detailed explanation. Plan I spent 45 minutes in reviewing the record, seeing the patient and documenting in the medical record. Orders: Orders TSH reflex Free T4 Today E04.2 - Nontoxic multinodular goiter US thyroid 04/23/26 E04.2 - Nontoxic multinodular goiter Patient Instructions: Do blood work , we will reach out if anything is abnormal Do ultrasound of the thyroid in April 2026, someone will call you to schedule this , please make sure this is done a few weeks prior to your next follow up with me in May 2026 Coding Level of Care Code New Pt Level 4 (88302) Diagnoses Multinodular goiter (nontoxic) E04.2 Time Spent (min) 45
[2025-05-16 10:01] VITALS: BP 96/64; PULSE 78; O2SAT 96
== END 2025-05-16 10:56 | disposition home or self-care (01) ==
LOC: HO.ENCR 09:57
PROVIDERS: PCP Internal Medicine; Visit Provider Student in an Organized Health Care Education/Training Program
DX: E04.2 Nontoxic multinodular goiter (principal)
CPT/HCPCS: 99204

== ENCOUNTER → 2025-05-16 09:56 | Outpatient (BNVA) | payer MEDICARE, OTHER, SELFPAY | PROVIDERS: PCP Internal Medicine; Visit Provider Student in an Organized Health Care Education/Training Program | DX: E04.2 Nontoxic multinodular goiter (principal) | CPT/HCPCS: 99202 ==

== ENCOUNTER 2025-05-27 09:33 | Outpatient (REF) | payer MEDICARE, OTHER, SELFPAY ==
--- OUTSIDE RECORDS SUMMARY | 2025-05-09 10:00 | XMS_ITS ---
Author Organization Jerome Guido MD Address [address] [place], [place] [phone] Care Team Providers Care Heel Seat Fitter Name Role Phone Jerome Guido Primary Care Provider Allergies No Known Allergies Results Component Value Reference Range Notes Potassium Reviewed date:05/09/2025 04:30:07 PM Interpretation: Performing Lab:[facility], [address] [place] [phone] Notes/Report: Potassium 4.1 3.3-5.1 mmol/L Blood Urea Nitrogen Reviewed date:05/11/2025 07:34:04 AM Interpretation: Performing Lab:[facility], [address] [place] [phone] Notes/Report: Blood Urea Nitrogen 37 9-16 mg/dL Creatinine Reviewed date:05/09/2025 04:29:36 PM Interpretation: Performing Lab:[facility], [address] [place] [phone] Notes/Report: Creatinine 1.28 0.5-1.4 mg/dL Estimated Glomerular [...] kg/m2 05/09/2025 weight is down 2 pounds [facility] 04-20-25 Encounters Encounter Location Date Provider Diagnosis Jerome Guido MD [address] [place], [place] [phone] 05/09/2025 Jerome Guido Hypokalemia E87.6 ; Elevated [...] Up: 2 Months, Reason: Provider Name:Jerome perez, 07/11/2025 01:30:00 PM, [address], [address], [place], [place], [phone], Provider Name:Jerome perez, 01/04/2026 01:45:00 PM, [address], [address], [place], [place], [phone], Progress Notes * OSMINJOSSIE Sophie EDOB: [birth year] (79 yo F)Acc No.[id number]:05/09/2025 Progress Notes Patient: Sophie VERDE Provider: Arjun Guido MD :1945 A ge:79 Y S ex:Female Date:05/09/2025 Address:[address] [place] [address] [facility] [id number] Subjective: * Chief Complaints: * 3 week [...] Date: 05/09/2025 Generated for Danyelle bentley/Satish/Reneitting on: 05/27/2025 09:37 AM EDT History and Physical Notes * [...]
[2025-05-27 10:45] LABS: Anion Gap 12 (12-20); Blood Urea Nitrogen 32 mg/dL (9-16); Calcium 9.1 mg/dL (8.4-10.2); Carbon Dioxide 23 mmol/L (22-29); Chloride 111 mmol/L (96-108); Estimated Glomerular Filt Rate 60; Potassium 4.2 mmol/L (3.3-5.1); Sodium 142 mmol/L (135-145)
== END 2025-05-27 09:34 | disposition home or self-care (01) ==
LOC: HO.LAB 09:33
PROVIDERS: Student in an Organized Health Care Education/Training Program; Absent Provider Internal Medicine; PCP Internal Medicine
DX: E04.2 Nontoxic multinodular goiter (principal); I50.30 Unspecified diastolic (congestive) heart failure; I42.2 Other hypertrophic cardiomyopathy; R79.9 Abnormal finding of blood chemistry, unspecified
CPT/HCPCS: 36415; 80048; 84443; 84520

== ENCOUNTER → 2025-06-12 23:59 | Outpatient (BNV) | payer MEDICARE, OTHER, SELFPAY ==
--- NOTE | 2025-06-20 12:24 | A.OFFVIS_ITS ---
Intake Visit Reasons: Remote device check-Medtr[employer] Allergies latex Allergy (Mild, Verified 05/16/25 10:07) Redness of Skin seasonal Allergy (Mild, Uncoded 05/16/25 10:07) Itchy Eyes PFSH Medical History Multinodular goiter (nontoxic) Paroxysmal atrial fibrillation Aortic stenosis Aortic stenosis, severe History of complete heart block History of blood transfusion History of GI bleed Personal history of COVID-19 Cervical disc disorder Hx of pulmonary embolus History of DVT (deep vein thrombosis) Anemia Asthma Non-rheumatic aortic stenosis Edema, peripheral Congestive heart failure Hypertrophic cardiomyopathy Pulmonary hypertension Obesity Cardiac pacemaker in situ (~2013) CAD (coronary artery disease) (HFpEF) heart failure with preserved ejection fraction Surgical History Status post transcatheter aortic valve replacement History of cardiac cath History of heart surgery History of elbow surgery History of cardioversion History of permanent cardiac pacemaker placement Family History Father No problems noted. Mother CVD (cardiovascular disease) Social History Household Members: Family and None Household Members Other:: pt son's lives upstair Housing: House Are you a primary resident care manager rn to a significant other at home: No Do you presently have visiting nurse or other home services: No Alcohol intake: current Alcohol intake frequency: holidays/special occasions only Alcohol type: wine Comment: Uses scooter Patient Tobacco Use Status: Former Tobacco user Tobacco use type: Cigarette Second Hand Smoke Exposure: No Advance Directives Date on File: 09/02/24 service: No Current occupational status: employed Office Procedures Cardiac Device Check Cardiac Device Check Details: Remote pacemaker report generated 06/12/2025. Pacemaker function is adequate. Persistent atrial [place] [id number] Cardiac Device Interrogation, pacemaker Procedure code (CPT) selection complete Assessment & Plan Assessment & Plan (1) Cardiac pacemaker in situ: Onset Date: ~2013 Comment: (Medtronic DCPP - placed 2013, generator change 02/2022) Code(s): Z95.0 - Presence of cardiac pacemaker Category: Medical Plan: See above Coding Level of Care Code Procedure Only Diagnoses Cardiac pacemaker in situ Z95.0 CPT Codes Cardiac Device Check - Cardiac Device 12: [id number] Cardiac Device Interrogation, pacemaker ([id number])
== END ==
PROVIDERS: PCP Internal Medicine; Visit Provider Internal Medicine Cardiovascular Disease
DX: I48.91 Unspecified atrial fibrillation (principal); Z95.0 Presence of cardiac pacemaker
CPT/HCPCS: 93294

== ENCOUNTER 2025-06-15 14:49 | Outpatient (AMB) | payer MEDICARE, OTHER, SELFPAY ==
--- OUTSIDE RECORDS SUMMARY | 2025-05-09 10:00 | XMS_ITS ---
Author Organization Jerome Guido MD Address [address] [place], [place] [phone] Care Team Providers Care Sales Project Engineer Name Role Phone Jerome Guido Primary Care Provider [phone] Allergies No Known Allergies Results Component Value Reference Range Notes Potassium Reviewed date:05/09/2025 04:30:07 PM Interpretation: Performing Lab:[facility], [address] [place] [phone] Notes/Report: Potassium 4.1 3.3-5.1 mmol/L Blood Urea Nitrogen Reviewed date:05/11/2025 07:34:04 AM Interpretation: Performing Lab:[facility], [address] [place] [phone] Notes/Report: Blood Urea Nitrogen 37 9-16 mg/dL Creatinine Reviewed date:05/09/2025 04:29:36 PM Interpretation: Performing Lab:[facility], [address] [place] [phone] Notes/Report: Creatinine 1.28 0.5-1.4 mg/dL Estimated Glomerular [...] kg/m2 05/09/2025 weight is down 2 pounds [facility] 04-20-25 Encounters Encounter Location Date Provider Diagnosis Jerome Guido MD [address] [place], [place] [phone] 05/09/2025 Jerome Guido Hypokalemia E87.6 ; Elevated [...] Up: 2 Months, Reason: Provider Name:Jerome perez, 07/14/2025 01:45:00 PM, [address], [address], [place], [place], [phone], Provider Name:Jerome perez, 01/04/2026 01:45:00 PM, [address], [address], [place], [place], [phone], Progress Notes * OSMINJOSSIE Sophie EDOB: [birth year] (79 yo F)Acc No.[id number]:05/09/2025 Progress Notes Patient: Sophie VERDE Provider: Arjun Guido MD :1945 A ge:79 Y S ex:Female Date:05/09/2025 Address:[address] [place] [address] [facility] [id number] Subjective: * Chief Complaints: * 3 week [...] Guido MD Date: 05/09/2025 Generated for Danyelle bentley/Satish/Reneitting on: 06/15/2025 02:52 PM EDT History and Physical Notes * [...]
[2025-06-15 15:14] VITALS: BP 120/60; PULSE 73; BMI 19.6
--- NOTE | 2025-06-15 15:14 | A.OFFVIS_ITS ---
Vital Signs 06/15/25 15:14 Height 5 ft 8 in Weight 129 lb 3.054 oz BMI 19.6 BP 120/60 Blood Pressure Location Rt brachial Position Sitting Pulse 73 Pulse Source Pulse Oximeter Intake Visit Reasons: 1m follow up Intake Note: 1 mth f/up Historical Site Guide Required: No Accompanied by: Self / Same As Patient Allergies latex Allergy (Mild, Verified 05/16/25 10:07) Redness of Skin seasonal Allergy (Mild, Uncoded 05/16/25 10:07) Itchy Eyes Medication List - Last Reconciled 06/15/25 by Yaya Bear NP acetaminophen 650 mg PO Q4H PRN albuterol sulfate 90 mcg/actuation 2 puffs PO Q4H PRN amlodipine 5 mg PO DAILY bumetanide 1 mg PO DAILY empagliflozin (Jardiance) 10 mg PO DAILY montelukast 10 mg PO BEDTIME rivaroxaban 20 mg PO DAILY HPI Comments Details: This is a 79-year-old female patient coming in for a follow-up visit. Patient with a history of AFib, coronary artery disease, complete heart block status post pacemaker in 2013, and severe aortic stenosis status post TAVR in 2023. Patient was previously seen in the office for ongoing intermittent leg swelling who had significant weight loss on the Lasix and metolazone, therefore both were discontinued and switch to Bumex daily. Today, patient reports feeling better overall with significant improvement in leg swelling as well as shortness of breath. Patient is denying any exertional chest pain, palpitations, orthopnea, PND, leg edema, presyncope or syncope. Patient is reporting compliance with all her medications. [facility] Medical History Multinodular goiter (nontoxic) Paroxysmal atrial fibrillation Aortic stenosis Aortic stenosis, severe History of complete heart block History of blood transfusion History of GI bleed Personal history of COVID-19 Cervical disc disorder Hx of pulmonary embolus History of DVT (deep vein thrombosis) Anemia Asthma Non-rheumatic aortic stenosis Edema, peripheral Congestive heart failure Hypertrophic cardiomyopathy Pulmonary hypertension Obesity Cardiac pacemaker in situ (~2013) CAD (coronary artery disease) (HFpEF) heart failure with preserved ejection fraction Surgical History Status post transcatheter aortic valve replacement History of cardiac cath History of heart surgery History of elbow surgery History of cardioversion History of permanent cardiac pacemaker placement Family History Father No problems noted. Mother CVD (cardiovascular disease) Social History Household Members: Family and None Household Members Other:: pt son's lives upstair Housing: House Are you a primary director of career resources to a significant other at home: No Do you presently have visiting nurse or other home services: No Alcohol intake: current Alcohol intake frequency: holidays/special occasions only Alcohol type: wine Comment: Uses scooter Patient Tobacco Use Status: Former Tobacco user Tobacco use type: Cigarette Second Hand Smoke Exposure: No Advance Directives Date on File: 09/02/24 service: No Current occupational status: employed Review of Systems Const Denies chills, Denies fatigue, Denies fever(s), Denies frequent falls, Denies weakness, Denies weight gain and Denies weight loss ENT Denies dizziness Card Denies chest pain, Denies leg edema, Denies lightheadedness, Denies palpitations, Denies dyspnea and Denies dyspnea on exertion Resp Denies cough, Denies dyspnea and Denies dyspnea on exertion GI Denies hematochezia Musc Denies abnormal gait, Denies muscle weakness, Denies numbness, Denies radiating pain into limb and Denies tingling Neuro Denies abnormal gait, Denies dizziness, Denies frequent falls, Denies numbness, Denies tingling and Denies weakness Endo Denies fatigue and Denies palpitations Physical Exam Vital Signs: Last Vital Signs Pulse 73 06/15/25 15:14 BP 120/60 06/15/25 15:14 BMI result Body Mass Index 19.6 Const General: cooperative, comfortable and no acute distress Orientation/consciousness: patient oriented x3 HEENT Head: Yes normal to inspection Neck Neck: Yes normal visual inspection, Yes trachea midline and Yes supple Chest Chest palpation & inspection: normal inspection of the chest Resp Effort & Inspection: normal respiratory effort Auscultation: clear to auscultation bilaterally, no crackles, no rales, no rhonchi and no wheezes Cardio Jugular venous distension: no JVD Palpation: normal PMI Rate: regular rate Heart sounds: S1 normal heart sound present, S2 normal heart sound present, no click, no gallops, no murmurs and no rubs Peripheral pulses: Peripheral pulses 2+ throughout GI Inspection: Yes normal to inspection Palpation (GI): Soft to palpation Auscultation: normal bowel sounds Skin General skin exam: no rashes or lesions noted Neuro General: patient oriented x3 Extrem General: Yes normal to inspection, No no pedal edema and No calf tenderness Psych Appearance: grossly normal Mental Status: mental status grossly normal Speech and movement: Normal speech and movement present Assessment & Plan Assessment & Plan (1) (HFpEF) heart failure with preserved ejection fraction: Code(s): I50.30 - Unspecified diastolic (congestive) heart failure Category: Medical Plan: Patient was previously on Lasix and metolazone prescribed by PCP. Patient lost about 20 lb on the metolazone and fatigued. Patient's Lasix and metolazone both were discontinued and was switched to Bumex 1 mg daily. Patient has been clinically stable and without any symptoms of fluid overload. Continue current regimen. Discussed signs and symptoms of heart failure to watch for. Advised low-salt diet, daily weight monitoring, and fluid restriction. Patient's recent labs shows stable electrolytes and kidney function. Monitoring periodically. (2) CAD (coronary artery disease): Comment: Cardiac catheterization pre TAVR showed 60% disease in LAD, 40-50% disease in circumflex and 90% disease at the ostium of the RPL Code(s): I25.10 - Atherosclerotic heart disease of [place] coronary artery without angina pectoris Category: Medical Plan: LDL goal less than 70. Continue Xarelto. (3) Persistent atrial fibrillation: Code(s): I48.19 - Other persistent atrial fibrillation Category: Medical Plan: Previously evaluated by EP for ablation and was considered not a candidate for the catheter ablation. Continue Xarelto for anticoagulation. Rate is well- controlled. (4) Status post transcatheter aortic valve replacement: Comment: Evolut, 29 mm bioprosthetic valve, September 2024 Code(s): Z95.2 - Presence of prosthetic heart valve Category: Surgical Plan: Continue Xarelto. Echo in 10/24/2025 showed normal functioning bioprosthetic aortic valve. We will repeat an echo before next visit. (5) Cardiac pacemaker in situ: Onset Date: ~2013 Comment: ([employer] DCPP - placed 2013, generator change 02/2022) Code(s): Z95.0 - Presence of cardiac pacemaker Category: Medical Plan: We will continue to monitor patient remotely. Advised heart healthy diet, regular exercise as tolerated, med compliance, and management of vascular risk factors. Patient follow up with primary historical site guide in 4 months. In the interim, patient will call the office with any concerns or change in symptoms. This note was generated using voice recognition software. While every effort has been made to ensure accuracy and proper mixer operator raw salt, there may be occasional errors that could affect the content or meaning of the described symptoms. Orders: Orders CA echo transthoracic complete 4 Months I50.30 - Unspecified diastolic (congestive) heart failure Basic Metabolic Panel 3 Months I50.30 - Unspecified diastolic (congestive) heart failure Coding Level of Care Code Est Pt Level 4 (60723) Complex EM visit Add On G2211 Diagnoses (HFpEF) heart failure with preserved ejection fraction I50.30 CAD (coronary artery disease) I25.10 Persistent atrial fibrillation I48.19 Status post transcatheter aortic valve replacement Z95.2 Cardiac pacemaker in situ Z95.0 Time Spent (min) 32 Comment Time spent in reviewing the chart, test results, assessment, counseling and documentation.
== END 2025-06-15 15:52 | disposition home or self-care (01) ==
LOC: HO.HCS 14:50
PROVIDERS: PCP Internal Medicine
DX: I50.30 Unspecified diastolic (congestive) heart failure (principal); I25.10 Atherosclerotic heart disease of native coronary artery without angina pectoris; I48.19 Other persistent atrial fibrillation; Z95.2 Presence of prosthetic heart valve; Z95.0 Presence of cardiac pacemaker
CPT/HCPCS: 99214; G2211

== ENCOUNTER → 2025-06-15 14:49 | Outpatient (BNVA) | payer MEDICARE, OTHER, SELFPAY | PROVIDERS: PCP Internal Medicine | DX: I25.10 Atherosclerotic heart disease of native coronary artery without angina pectoris (principal); I50.30 Unspecified diastolic (congestive) heart failure; I48.19 Other persistent atrial fibrillation; Z95.2 Presence of prosthetic heart valve; Z95.0 Presence of cardiac pacemaker | CPT/HCPCS: 99212 ==

== ENCOUNTER → 2025-09-10 23:59 | Outpatient (BNV) | payer MEDICARE, OTHER, SELFPAY ==
--- NOTE | 2025-09-13 12:27 | A.OFFVIS_ITS ---
Intake Visit Reasons: Remote device check-[employer]tr[employer] Allergies latex Allergy (Mild, Verified 05/16/25 10:07) Redness of Skin seasonal Allergy (Mild, Uncoded 05/16/25 10:07) Itchy Eyes PFSH Medical History Multinodular goiter (nontoxic) Paroxysmal atrial fibrillation Aortic stenosis Aortic stenosis, severe History of complete heart block History of blood transfusion History of GI bleed Personal history of COVID-19 Cervical disc disorder Hx of pulmonary embolus History of DVT (deep vein thrombosis) Anemia Asthma Non-rheumatic aortic stenosis Edema, peripheral Congestive heart failure Hypertrophic cardiomyopathy Pulmonary hypertension Obesity Cardiac pacemaker in situ (~2013) CAD (coronary artery disease) (HFpEF) heart failure with preserved ejection fraction Surgical History Status post transcatheter aortic valve replacement History of cardiac cath History of heart surgery History of elbow surgery History of cardioversion History of permanent cardiac pacemaker placement Family History Father No problems noted. Mother CVD (cardiovascular disease) Social History Household Members: Family and None Household Members Other:: pt son's lives upstair Housing: House Are you a primary care companion to a significant other at home: No Do you presently have visiting nurse or other home services: No Alcohol intake: current Alcohol intake frequency: holidays/special occasions only Alcohol type: wine Comment: Uses scooter Patient Tobacco Use Status: Former Tobacco user Tobacco use type: Cigarette Second Hand Smoke Exposure: No Advance Directives Date on File: 09/02/24 service: No Current occupational status: employed Office Procedures Cardiac Device Check Cardiac Device Check Details: Remote pacemaker report generated 09/10/2025. Pacemaker function is adequate. Persistent atrial [place] [id number] Cardiac Device Interrogation, pacemaker Procedure code (CPT) selection complete Assessment & Plan Assessment & Plan (1) Cardiac pacemaker in situ: Onset Date: ~2013 Comment: (Medtronic DCPP - placed 2013, generator change 02/2022) Code(s): Z95.0 - Presence of cardiac pacemaker Category: Medical Plan: See above Coding Level of Care Code Procedure Only Diagnoses Cardiac pacemaker in situ Z95.0 CPT Codes Cardiac Device Check - Cardiac Device 12: [id number] Cardiac Device Interrogation, pacemaker ([id number])
== END ==
PROVIDERS: PCP Internal Medicine; Visit Provider Internal Medicine Cardiovascular Disease
DX: I48.19 Other persistent atrial fibrillation (principal); Z95.0 Presence of cardiac pacemaker
CPT/HCPCS: 93294

== ENCOUNTER → 2025-10-17 14:54 | Outpatient (REF) | payer MEDICARE, OTHER, SELFPAY ==
--- OUTSIDE RECORDS SUMMARY | 2025-03-24 08:22 | XMS_ITS ---
Author Organization Jerome Guido MD Address [address] [place] [phone] Care Team Providers Care Cap Coverer Name Role Phone Jerome Guido Primary Care Provider Encounters Encounter Location Date Provider Diagnosis Jerome Guido MD [address] [place] [address] [id number] 03/24/2025 Jerome Guido Plan Of Treatment Next Appt Details Provider Name:Jerome Oorsco ier, 01/04/2026 01:45:00 PM, [address], [address], [place], [place], [phone], Progress Notes * Sophie VIDAL EDOB: [birth year] (79 yo F)Acc No.[id number]:03/24/2025 Patient: Jovanna Sophie STUART :1945 A ge:79 Y S ex:Female Address: [place] [address] * true * Date: Generated for Danyelle bentley/Satish/Sigrid on: 12/18/2024 09:08 PM EST
--- OUTSIDE RECORDS SUMMARY | 2025-04-11 09:00 | XMS_ITS ---
Author Organization Jerome Guido MD Address [address] [place] [phone] Care Team Providers Care Wholesale And Retail Merchant Name Role Phone Jerome Guido Primary Care Provider [phone] Allergies No Known Allergies REASON FOR VISIT 2 month, needs Iron and TIBC Medications Medication SIG (Take, Route, Frequency, Duration) Notes Start Date End Date Status Montelukast Sodium 10 MG TAKE 1 TABLET B Y MOUTH EVERY DAY for 90 Active Ferrous Sulfate 324 (65 Fe) MG 1 tablet Orally twice a day Not-Taking Furosemide 40 MG 1 tablet Orally Once a day Active Xarelto 20 MG TAKE 1 TABLET BY EVERY DAY WITH FOOD Orally Once a day Active Advair Diskus 250-50 MCG/DOSE INHALE 1 PUFF BY MOUTH TWICE DAILY for 30 Not-Taking Amoxicillin-Pot Clavulanate 875-125 MG 1 tablet Orally every 12 hrs for 10 days 04/11/2025 Active Albuterol Sulfate HFA 108 (90 Base) MCG/ACT INHALE 1 PUFF BY MOUTH EVERY 4 HOURS NEEDED for 33 Active Aspirin 81 81 MG 1 tablet Orally Once a day for 30 day(s) Active amLODIPine Besylate 10 MG 0.5 tablet Ora lly Once a day Active Jardiance 10 MG 1 tablet Orally Once a day Active metOLazone 5 MG 1 tablet Orally rober y for 30 days 04/11/2025 Active Problems Problem Type SNOMED Code ICD Code Onset Dates Problem Status W/U Status Risk Notes Problem Sinusitis (70965995) Sinusitis (J32.9) Active confirmed Vital Signs Blood pressure systolic 120 mm Hg 04/11/20 25 Blood pressure diastolic 64 mm Hg 025 Height 66 in 04/11/2025 Weight 148 lbs 04/11/2025 BMI 23.89 kg/m2 04/11/2025 weight is up 13 pounds since 02-07-25 Encounters Encounter Location Date Provider Diagnosis Jerome Guido MD [address] [place] [address] Drive [address] [place] [phone] 04/11/2025 Jerome Guido Chronic systolic congestive heart failure I50.22 ; Edema extremities R60.0 and Sinusitis J32.9 Assessments Encounter Date Diagnosis (ICD Code) Assessment Notes Treatment Notes Treatment Clinical Notes Section Notes 04/11/2025 Chronic systolic congestive heart failure (ICD-10 - I50.22) 04/11/2025 Edema extremities (ICD-10 - R60.0) 04/11/2025 Sinusitis (ICD-10 - J32.9) Plan Of Treatment Medication Medication Name Sig Start Date Stop Date Notes Amoxicillin-Pot Clavulanate 875-125 MG 1 tablet Orally every 12 hrs for 10 days 04/11/2025 metOLazone 5 MG 1 tablet Orally rober y for 30 days 04/11/2025 Next Appt Details Follow Up: 1 Week, Reason: Provider Name:Jerome perez, 01/04/2026 01:45:00 PM, [address], [address], [place], [place], [phone], Progress Notes * Sophie VIDAL EDOB: [birth year] (79 yo F)Acc No.[id number]:04/11/2025 Progress Notes Patient: Jovanna Sophie STUART E Provider: Arjun Guido MD :1945 A ge:79 Y S ex:Female Date:04/11/2025 Address:[place], [id number] Subjective: * Chief Complaints: * 2 monthneeds Iron and TIBC * HPI: S ymptom(s): patient is a 79 yo female here for 2 month follow up visit/ not doing too well. most of the time is good/ not as good today. fluid started 3 days ago and increased lasix to 80 from 40/ has a sinus infection for several weeks. * ROS: G eneral/Constitutional: Denies C hills. D enies F atigue. D enies F ever. D enies H eadache. E NT: Denies E ar pain. A dmits S inus pain. D enies?Sore throat. R espiratory: Denies C ough. D enies S hortness of breath at rest. D enies S hortness of breath with exertion. G astrointestinal: Denies D iarrhea. D enies N ausea. * Medical History: * Surgical History: * Hospitalization/Major Diagno stic Procedure: * Medications: T akingJardiance 10 MG Tablet 1 tablet Orally Once a day Aspirin 81 81 MG Tablet Delayed Release 1 tablet Orally Once a day amLODIPine Besylate 10 MG Tablet 0.5 tablet Orally Once a day Albuterol Sulfate HFA 108 (90 Base) MCG/ACT Aerosol Solution INHALE 1 PUFF BY MOUTH EVERY 4 HOURS NEEDED Furosemide 40 MG Tablet 1 tablet Orally Once a day Xarelto 20 MG Tablet TAKE 1 TABLET BY MOUTH EVERY DAY WITH FOOD Orally Once a day Montelukast Sodium 10 MG Tablet TAKE 1 TABLET BY MOUTH EVERY DAY Taking Jardiance 10 MG Tablet 1 tablet Orally Once a day Taking Aspirin 81 81 MG Tablet Delayed Release 1 tablet Orally Once a day Taking amLODIPine Besylate 10 MG Tablet 0.5 tablet Orally Once a day Taking Albuterol Sulfate HFA 108 (90 Base) MCG/ACT Aerosol Solution INHALE 1 PUFF BY MOUTH EVERY 4 HOURS NEEDED Taking Furosemide 40 MG Tablet 1 tablet Orally Once a day Taking Xarelto 20 MG Tablet TAKE 1 TABLET BY MOUTH EVERY DAY WITH FOOD Orally Once a day Taking Montelukast Sodium 10 MG Tablet TAKE 1 TABLET BY MOUTH EVERY DAY Not-Taking/PRNFerrous Sulfate 324 (65 Fe) MG Tablet Delayed Release 1 tablet Orally twice a day Advair Diskus 250-50 MCG/DOSE Aerosol Powder Breath Activated INHALE 1 PUFF BY MOUTH TWICE DAILY Medication List reviewed and reconciled with the patientNot-Taking/PRN Ferrous Sulfate 324 (65 Fe) MG Tablet Delayed Release 1 tablet Orally twice a day Not-Taking/PRN Advair Diskus 250-50 MCG/DOSE Aerosol Powder Breath Activated INHALE 1 PUFF BY MOUTH TWICE DAILY Medication List reviewed and reconciled with the patient * Allergies: N .K.D.A.yes[Allergies Verified] Objective: * Vitals: H t: 66, Wt: 148, BMI:23.89, BP:120/64, Wt-k.13. weight is up 13 pounds since 02-07-25. * Examination: G eneral Examination: GENERAL APPEARANCE: w ith some grunting respiration. HEAD: n ormocephalic. SKIN: g ood turgor. HEART: g rade 3/6 systolic murmur at left sternal border.? LUNGS: s ound clear. EXTREMITIES: 3 + pitting edema lower extremities. ? Assessment: * Assessment: 1. C hronic systolic congestive heart failure - I50.22 (Primary) 2 . E angelia extremities - R60.0 3 . S inusitis - J32.9 Plan: * Treatment: 2. S inusitis Start Amoxicillin-Pot Clavulanate Tablet, 875-125 MG, 1 tablet, Orally, every 12 hrs, 10 days, 20 Tablet. * Procedure Codes: * Follow Up: 1 Week * * Sign off status: Completed true * Provider: Arjun Guido MD Date: 0 04/11/2025 Generated for Danyelle bentley/Satish/Sigrid on: 1 12/18/2024 09:10 PM EST History and Physical Notes * HPI (History of Present Illness) Category Sub-Category Detail Notes Category Not es Symptom(s) patient is a 79 yo female here for 2 month follow up visit/ not doing too well. most of the time is good/ not as good today. fluid started 3 days ago and increased lasix to 80 from 40/ has a sinus infection for several weeks. Examination Category Sub-Category Detail Notes Category Not es General Examination GENERAL APPEARANCE: with some grun ting respiration HEAD: normocephalic HEART: grade 3/6 systolic m urmur at left sternal border LUNGS: sound clear SKIN: good turgor EXTREMITIES: 3+ pitting edema low er extremities
--- OUTSIDE RECORDS SUMMARY | 2025-04-20 09:15 | XMS_ITS ---
Author Organization Jerome Guido MD Address [address] [place], [place] [phone] Care Team Providers Care Warehouse Clerk Name Role Phone Jerome Guido Primary Care Provider [phone] Allergies No Known Allergies Results Component Value Reference Range Notes Basic Metabolic Panel Reviewed date:04/25/2025 09:02:51 AM Interpretation: Performing Lab:[facility], [address] [place] [phone] Notes/Report: Sodium 139 135-145 mmol/L Potassium 3.2 3.3-5.1 mmol/L Chloride 100 96-108 mmol/L Carbon Dioxide 28 22-29 mmol/L Anion Gap 14 12-20 Blood Urea Nitrogen 31 9-16 mg/dL Creatinine 1.24 0.5-1.4 mg/dL Estimated Glomerular Filt Rate 42 Chronic Kidney Disease: Estimated GFR < 60 mL/min/1.73m2 Severe Kidney Disease: Estimated GFR < 15 mL/min/1.73m2 Glucose Random 131 60-115 mg/dL Calcium 9.4 8.4-10.2 mg/dL REASON FOR VISIT 1 week Medications Medication SIG (Take, Route, Frequency, Duration) Notes Start Date End Date Status Xarelto 20 MG TAKE 1 TABLET BY ALANNA EVERY DAY WITH FOOD Orally Once a day Active Furosemide 40 MG 1 tablet Orally Once a day Active Albuterol Sulfate HFA 108 (90 Base) MCG/ACT INHALE 1 PUFF BY MOUTH EVERY 4 HOURS NEEDED for 33 Active amLODIPine Besylate 10 MG 0.5 tablet Ora lly Once a day Active metOLazone 5 MG 1 tablet Orally Two times a Week 04/11/2025 Active Jardiance 10 MG 1 tablet Orally Once a day Active Advair Diskus 250-50 MCG/DOSE INHALE 1 PUFF BY MOUTH TWICE DAILY for 30 Not-Taking Ferrous Sulfate 324 (65 Fe) MG 1 tablet Orally twice a day Not-Taking Amoxicillin-Pot Clavulanate 875-125 MG 1 tablet Orally every 12 hrs for 10 days 04/11/2025 Active Montelukast Sodium 10 MG TAKE 1 TABLET B Y MOUTH EVERY DAY for 90 Active Vital Signs Blood pressure systolic 92 mm Hg 04/20/20 25 Blood pressure diastolic 50 mm Hg 025 Height 66 in 04/20/2025 Weight 130 lbs 04/20/2025 BMI 20.98 kg/m2 04/20/2025 weight is down 18 pounds [facility] 6-01-31 Encounters Encounter Location Date Provider Diagnosis Jerome Guido MD [address] [place] [address] [address] [place], [place] [phone] 04/20/2025 Jerome Guido Chronic systolic congestive heart failure I50.22 and Edema extremities R60.0 Assessments Encounter Date Diagnosis (ICD Code) Assessment Notes Treatment Notes Treatment Clinical Notes Section Notes 04/20/2025 Chronic systolic congestive heart failure (ICD-10 - I50.22) doing much better with the metolozone 04/20/2025 Edema extremities (ICD-10 - R60.0) has resolved Plan Of Treatment Medication Medication Name Sig Start Date Stop Date Notes metOLazone 5 MG 1 tablet Orally Two times a Week Treatment Notes Assessment Notes Chronic systolic congestive heart failur e doing much better with the metolozone Edema extremities has resolved Pending Test Test Name Order Date BRAIN NATRIURETIC PEPTIDE (BNP) 04/20/20 Next Appt Details Follow Up: 3 Weeks, Reason: Provider Name:Jerome Orosco ier, 01/04/2026 01:45:00 PM, [address], [address], [place], [place], [phone], Progress Notes * Sophie VIDAL EDOB: [birth year] (79 yo F)Acc No.[id number]:04/20/2025 Progress Notes Patient: Sophie VERDE E Provider: Arjun Guido MD :1945 A ge:79 Y S ex:Female Date:04/20/2025 Address:[address] [place] [address], [id number] Subjective: * Chief Complaints: * 1 week * HPI: S ymptom(s): patient is a 79 yo female here for one week follow up visit, weight is down 18 lbs since last visit one week ago. * ROS: G eneral/Constitutional: Denies C hills. D enies F atigue. D enies F ever. D enies H eadache. E NT: Denies S ore throat. R espiratory: Denies C ough. D enies S hortness of breath at rest. D enies S hortness of breath with exertion. G astrointestinal: Denies D iarrhea. D enies N ausea. * Medical History: * Surgical History: * Hospitalization/Major Diagno stic Procedure: * Medications: T akingJardiance 10 MG Tablet 1 tablet Orally Once a day amLODIPine [...] TAKE 1 TABLET BY MOUTH EVERY DAY metOLazone 5 MG Tablet 1 tablet Orally daily Amoxicillin-Pot Clavulanate 875-125 MG Tablet 1 tablet Orally every 12 hrs Taking Jardiance 10 MG Tablet 1 tablet [...] 1 TABLET BY MOUTH EVERY DAY Taking metOLazone 5 MG Tablet 1 tablet Orally daily Taking Amoxicillin-Pot Clavulanate 875-125 MG Tablet 1 tablet Orally every 12 hrs Not-Taking/PRNFerrous Sulfate 324 (65 Fe) MG Tablet Delayed Release 1 tablet Orally twice a day Advair Diskus 250-50 MCG/DOSE Aerosol Powder Breath Activated INHALE 1 PUFF BY MOUTH TWICE DAILY Not-Taking/PRN Ferrous Sulfate 324 (65 Fe) MG Tablet Delayed Release 1 tablet Orally twice a day Not-Taking/PRN Advair Diskus 250-50 MCG/DOSE Aerosol Powder Breath Activated INHALE 1 PUFF BY MOUTH TWICE DAILY DiscontinuedAspirin 81 81 MG Tablet Delayed Release 1 tablet Orally Once a day Medication List reviewed and reconciled with the patientDiscontinued Aspirin 81 81 MG Tablet Delayed Release 1 tablet Orally Once a day Medication List reviewed and reconciled with the patient * Allergies: N .K.D.A.yes[Allergies Verified] Objective: * Vitals: H t: 66, Wt: 130, BMI:20.98, BP:92/50, Wt-k.97. weight is down 18 pounds since 04-11-25. * Examination: G eneral Examination: GENERAL APPEARANCE: a lert, well hydrated, in no distress.? HEAD: n ormocephalic. HEART: g rade 2/6 systolic murmur at left sternal border.? LUNGS: n o wheezes, rales, rhonchi, good air movement, clear to auscultation bilaterally. EXTREMITIES: n o edema. Assessment: * Assessment: 1. C hronic systolic congestive heart failure - I50.22 (Primary) 2 . E angelia extremities - R60.0 Plan: * Treatment: 2. E angelia extremities Continue metOLazone Tablet, 5 MG, 1 tablet, Orally, Two times a Week. Notes: has resolved * Procedure Codes: 3 6415 VENIPUNCT, ROUTINE* * Follow Up: 3 Weeks * * Sign off status: Completed true * Provider: Arjun Guido MD Date: 0 04/20/2025 Generated for Danyelle bentley/Satish/Reneitting on: 1 12/18/2024 09:09 PM EST History and Physical Notes * HPI (History of Present Illness) Category Sub-Category Detail Notes Category Not es Symptom(s) patient is a 79 yo female here for one week follow up visit, weight is down 18 lbs since last visit one week ago Examination Category Sub-Category Detail Notes Category Not es General Examination GENERAL APPEARANCE: alert, w ell hydrated, in no distress HEAD: normocephalic HEART: grade 2/6 systolic m urmur at left sternal border LUNGS: no wheezes, rales, r honchi, good air movement, clear to auscultation bilaterally EXTREMITIES: no edema
--- OUTSIDE RECORDS SUMMARY | 2025-04-21 07:56 | XMS_ITS ---
Author Organization Jerome Guido MD Address [address] [place] [phone] Care Team Providers Care Water Meter Installer Name Role Phone Jerome Guido Primary Care Provider [phone] Medications Medication SIG (Take, Route, Fr equency, Duration) Notes Start Date End Date Status Klor-Con 10 10 MEQ 1 tablet with food O rally once a day for 30 days 04/21/2025 Active Encounters Encounter Location Date Provider Diagnosis Jerome Guido MD [address] [place], [place] [phone] 04/21/2025 Jerome Guido Plan Of Treatment Medication Medication Name Sig Start Date Stop Date Notes Klor-Con 10 10 MEQ 1 tablet with food O rally once a day for 30 days 04/21/2025 Next Appt Details Provider Name:Jerome perez, 01/04/2026 01:45:00 PM, [address], [address], [place], [place], [phone], Progress Notes * Sophie VIDAL EDOB: [birth year] (79 yo F)Acc No.[id number]:04/21/2025 Patient: Sophie VERDE :1945 A ge:79 Y S ex:Female Address:[address] [place] [phone] * Refills Start Klor-Con 10 Tablet Extended Release, 10 MEQ, Orally, 30 Tablet, 1 tablet with food, once a day, 30 days, Refills=3 * true * Date: Generated for Danyelle bentley/Satish/Vannasmitting on: 12/18/2024 09:08 PM EST
--- OUTSIDE RECORDS SUMMARY | 2025-05-09 09:00 | XMS_ITS ---
Author Organization Jerome Guido MD Address [address] [place], [place] [phone] Care Team Providers Care Boot Turner Name Role Phone Jerome Guido Primary Care Provider Allergies No Known Allergies Results Component Value Reference Range Notes Potassium Reviewed date:05/09/2025 04:30:07 PM Interpretation: Performing Lab:[facility], [address] [place] [phone] Notes/Report: Potassium 4.1 3.3-5.1 mmol/L Blood Urea Nitrogen Reviewed date:05/11/2025 07:34:04 AM Interpretation: Performing Lab:[facility], [address] [place] [phone] Notes/Report: Blood Urea Nitrogen 37 9-16 mg/dL Creatinine Reviewed date:05/09/2025 04:29:36 PM Interpretation: Performing Lab:[facility], [address] [place] [phone] Notes/Report: Creatinine 1.28 0.5-1.4 mg/dL Estimated Glomerular Filt Rate 40 Chronic Kidney Disease: Estimated GFR < 60 mL/min/1.73m2 Severe Kidney Disease: Estimated GFR < 15 mL/min/1.73m2 REASON FOR VISIT 3 week Medications Medication SIG (Take, Route, Frequency, Duration) Notes Start Date End Date Status Amoxicillin-Pot Clavulanate 875-125 MG 1 tablet Orally every 12 hrs for 10 days 04/11/2025 Active metOLazone 5 MG 1 tablet Orally Two times a Week 04/11/2025 Active Klor-Con 10 10 MEQ 1 tablet with food Orally once a day for 30 days 04/21/2025 Active Ferrous Sulfate 324 (65 Fe) MG 1 tablet Orally twice a day Not-Taking Advair Diskus 250-50 MCG/DOSE INHALE 1 PUFF BY MOUTH TWICE DAILY for 30 Not-Taking Albuterol Sulfate HFA 108 (90 Base) MCG/ACT INHALE 1 PUFF BY MOUTH EVERY 4 HOURS NEEDED for 33 Active Furosemide 40 MG 1 tablet Orally Once a day Active Xarelto 20 MG TAKE 1 TABLET BY ALANNA TH EVERY DAY WITH FOOD Orally Once a day Active Montelukast Sodium 10 MG TAKE 1 TABLET B Y MOUTH EVERY DAY for 90 Active amLODIPine Besylate 10 MG 0.5 tablet Ora lly Once a day Active Jardiance 10 MG 1 tablet Orally Once a day Active Vital Signs Blood pressure systolic 88 mm Hg 05/09/20 25 Blood pressure diastolic 50 mm Hg 025 Height 66 in 05/09/2025 Weight 128 lbs 05/09/2025 BMI 20.66 kg/m2 05/09/2025 weight is down 2 pounds [facility] 04-20-25 Encounters Encounter Location Date Provider Diagnosis Jerome Guido MD [address] [place], [place] [phone] 05/09/2025 Jerome Guido Hypokalemia E87.6 ; Elevated BUN R79.9 and Chronic systolic congestive heart failure I50.22 Assessments Encounter Date Diagnosis (ICD Code) Assessment Notes Treatment Notes Treatment Clinical Notes Section Notes 05/09/2025 Hypokalemia (ICD-10 - E87.6) had developed hypokalemia on the metalozone and is replacing will rechec 05/09/2025 Elevated BUN (ICD-10 - R79.9) with the massive diureses there was a increase in the bun will check as we have decrease the metalozone to twice a week 05/09/2025 Chronic systolic congestive heart failure (ICD-10 - I50.22) doing much better on the metolozone/ not being short of breath. still sleeps sitting up but maybe due to habits Plan Of Treatment Treatment Notes Assessment Notes Hypokalemia had developed hypoka lemia on the metalozone and is replacing will rechec Elevated BUN with the massive diu reses there was a increase in the bun will check as we have decrease the metalozone to twice a week Chronic systolic congestive heart failur e doing much better on the metolozone/ not being short of breath. still sleeps sitting up but maybe due to habits Next Appt Details Follow Up: 2 Months, Reason: Provider Name:Jerome perez, 01/04/2026 01:45:00 PM, [address] [facility], [address] [facility], [place], [place], [phone], Progress Notes * Sophie VIDAL EDOB: [birth year] (79 yo F)Acc No.[id number]:05/09/2025 Progress Notes Patient: Sophie VERDE Provider: Arjun Guido MD :1945 A ge:79 Y S ex:Female Date:05/09/2025 Address:[address] [place], [place] [phone] Subjective: * Chief Complaints: * 3 week * HPI: S ymptom(s): patient is a 79 yo female here for 3 week follow up visit. * ROS: G eneral/Constitutional: Denies C hills. D enies F atigue. D enies F ever. D enies H eadache. E NT: Denies S ore throat. R espiratory: Denies C ough. D enies S hortness of breath at rest. D enies S hortness of breath with exertion. C ardiovascular: Denies C hest pain at rest. D enies C hest pain with exertion. D enies D izziness. D enies F luid accumulation in the legs. ? G astrointestinal: Denies D iarrhea. D enies [...] TAKE 1 TABLET BY MOUTH EVERY DAY Amoxicillin-Pot Clavulanate 875-125 MG Tablet 1 tablet Orally every 12 hrs metOLazone 5 MG Tablet 1 tablet Orally Two times a Week Klor-Con 10 10 MEQ Tablet Extended Release 1 tablet with food Orally once a day Taking Jardiance 10 MG Tablet 1 tablet [...] 1 TABLET BY MOUTH EVERY DAY Taking Amoxicillin-Pot Clavulanate 875-125 MG Tablet 1 tablet Orally every 12 hrs Taking metOLazone 5 MG Tablet 1 tablet Orally Two times a Week Taking Klor-Con 10 10 MEQ Tablet Extended Release 1 tablet with food Orally once a day Not-Taking/PRNFerrous Sulfate 324 (65 Fe) [...] Objective: * Vitals: H t: 66, Wt: 128, BMI:20.66, BP:88/50, Wt-k.06. weight is down 2 pounds since 04-20-25. * Examination: G eneral Examination: GENERAL APPEARANCE: p leasant, in no acute distress. HEAD: n ormocephalic. SKIN: g ood turgor. HEART: g rade 2/6 systolic murmur at left sternal border.? LUNGS: n o wheezes, rales, rhonchi, good air movement, clear to auscultation bilaterally. Assessment: * Assessment: 1. H ypokalemia - E87.6 (Primary) 2 . E levated BUN - R79.9 ?3. C hronic systolic congestive heart failure - I50.22 Plan: * Treatment: 2. E levated BUN L AB: Potassium (Collection Date & Time - 05/09/2025 02:00 PM) L AB: Blood Urea Nitrogen (Collection Date & Time - 05/09/2025 02:00 PM) L AB: Creatinine (Collection Date & Time - 05/09/2025 02:00 PM) Notes: with the massive diureses there was a increase in the bun will check as we have decrease the metalozone to twice a week 3. C hronic systolic congestive heart failure Notes: doing much better on the metolozone/ not being short of breath. still sleeps sitting up but maybe due to habits * Procedure Codes: 3 6415 VENIPUNCT, ROUTINE* * Follow Up: 2 Months * * Sign off status: Completed true * Provider: Arjun Guido MD Date: 0 05/09/2025 Generated for Danyelle bentley/Satish/Vannasmitting on: 1 12/18/2024 09:09 PM EST History and Physical Notes * HPI (History of Present Illness) Category Sub-Category Detail Notes Category Not es Symptom(s) patient is a 79 yo female here for 3 week follow up visit Examination Category Sub-Category Detail Notes Category Not es General Examination GENERAL APPEARANCE: pleasant, in n o acute distress HEAD: normocephalic HEART: grade 2/6 systolic m urmur at left sternal border LUNGS: no wheezes, rales, r honchi, good air movement, clear to auscultation bilaterally SKIN: good turgor
--- OUTSIDE RECORDS SUMMARY | 2025-05-26 03:45 | XMS_ITS ---
Author Organization Jerome Guido MD Address [address] [place] [phone] Care Team Providers Care Darklight Inspector Name Role Phone Jerome Guido Primary Care Provider REASON FOR VISIT 2 week repeat BUN Encounters Encounter Location Date Provider Diagnosis Jerome Guido MD [address] [facility] [address] [place] [phone] 05/26/2025 Jerome Guido Elevated BUN R79.9 Assessments Encounter Date Diagnosis (ICD Code) Assessment Notes Treatment Notes Treatment Clinical Notes Section Notes 05/26/2025 Elevated BUN (ICD-10 - R79.9) Plan Of Treatment Pending Test Test Name Order Date Blood Urea Nitrogen 05/26/2025 Next Appt Details Provider Name:Jerome perez, 01/04/2026 01:45:00 PM, [address], Suite [facility], [place], [place], [phone], Progress Notes * Sophie VIDAL EDOB: [birth year] (79 yo F)Acc No.[id number]:05/26/2025 Progress Note Patient: Sophie VERDE Provider: Arjun Guido MD :1945 A ge:79 Y S ex:Female Date:05/26/2025 Address:[address] [place], [place] [id number] Subjective: * Chief Complaints: * 1 . 2 week repeat BUN. * Medical History: Objective: * Vitals: Assessment: * Assessment: 1. E levated BUN - R79.9 (Primary) Plan: * Treatment: * * The named appointment provid er may or may not be the originator of this progress note, and it is not deemed complete until electronically signed by the appointment provider. Sign off status: Pending * Provider: Arjun Guido MD Date: 0 05/26/2025 Generated for Danyelle bentley/Satish/Reneitting on: 1 12/18/2024 09:10 PM EST
--- OUTSIDE RECORDS SUMMARY | 2025-06-15 10:26 | XMS_ITS ---
Author Organization Jerome Guido MD Address [address] [place] [phone] Care Team Providers Care Election Judge Name Role Phone Jerome Guido Primary Care Provider [phone] REASON FOR VISIT chest x-ray order * Encounters Encounter Location Date Provider Diagnosis Jerome Guido MD [address] [place] [phone] 06/15/2025 Jerome Guido Plan Of Treatment Next Appt Details Provider Name:Jerome Orosco ier, 01/04/2026 01:45:00 PM, [address] [facility] [address], Suite [facility], [place], [place], [phone], Progress Notes * Sophie VIDAL EDOB: [birth year] (79 yo F)Acc No.[id number]:06/15/2025 Patient: Jovanna Sophie STUART :1945 A ge:79 Y S ex:Female Address:[address] [place] [address], [facility] [place] [id number] * true * Date: Generated for Danyelle bentley/Satish/Sigrid on: 12/18/2024 09:09 PM EST
--- OUTSIDE RECORDS SUMMARY | 2025-07-20 08:45 | XMS_ITS ---
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 Name Role Phone Jerome Guido Primary Care Provider [phone] Allergies No Known Allergies REASON FOR VISIT 2 month Medications Medication SIG (Take, Route, Frequency, Duration) Notes Start Date End Date Status Ferrous Sulfate 324 (65 Fe) MG 1 tablet Orally twice a day Not-Taking Advair Diskus 250-50 MCG/DOSE INHALE 1 PUFF BY MOUTH TWICE DAILY for 30 Not-Taking predniSONE 20 MG 1 tablet with food o r milk Orally Once a day for 5 days 07/20/2025 Active amLODIPine Besylate 2.5 MG 1 tablet Orally Once a day for 30 days Active Klor-Con 10 10 MEQ 1 tablet with food Orally once a day for 30 days 04/21/2025 Not-Taking Amoxicillin-Pot Clavulanate 875-125 MG 1 tablet Orally every 12 hrs for 10 days 04/11/2025 Active Montelukast Sodium 10 MG TAKE 1 TABLET B Y MOUTH EVERY DAY for 90 Active Furosemide 40 MG 1 tablet Orally Once a day Not-Taking Xarelto 20 MG TAKE 1 TABLET BY ALANNA TH EVERY DAY WITH FOOD for 90 Active Bumetanide 1 MG 1 tablet Orally Once a day Active Jardiance 10 MG 1 tablet Orally Once a day Active Albuterol Sulfate HFA 108 (90 Base) MCG/ACT INHALE 1 PUFF BY MOUTH EVERY 4 HOURS NEEDED for 33 Active Problems Problem Type SNOMED Code ICD Code Onset Dates Problem Status W/U Status Risk Notes Problem Gout (34007145) Gout (M10.9) Active confirmed Vital Signs Blood pressure systolic 92 mm Hg 07/20/20 25 Blood pressure diastolic 48 mm Hg 025 Height 66 in 07/20/2025 patient weighed 128 at home Encounters Encounter Location Date Provider Diagnosis Jerome Guido MD [address] [place] [phone] 07/20/2025 Jerome Guido Gout M10.9 and Hypotension due to drugs I95.2 Assessments Encounter Date Diagnosis (ICD Code) Assessment Notes Treatment Notes Treatment Clinical Notes Section Notes 07/20/2025 Gout (ICD-10 - M10.9) patient verbalized understanding of medication and directions for use 07/20/2025 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) stable, will continue current regiment Plan Of Treatment Medication Medication Name Sig Start Date Stop Date Notes predniSONE 20 MG 1 tablet with food o r milk Orally Once a day for 5 days 07/20/2025 amLODIPine Besylate 2.5 MG 1 tablet Oral ly Once a day for 30 days Treatment Notes Assessment Notes Gout patient verbalized u nderstanding of medication and directions for use Hypotension due to drugs stable, will co ntinue current regiment Next Appt Details Follow Up: 2 Weeks, Reason: Provider Name:Jerome Orosco ier, 01/04/2026 01:45:00 PM, [address], [address], [place], [place], [phone], Progress Notes * Sophie VIDAL EDOB: [birth year] (79 yo F)Acc No.[id number]:07/20/2025 Progress Notes Patient: Jovanna Sophie STUART E Provider: Arjun Guido MD :1945 A ge:79 Y S ex:Female Date:07/20/2025 Address:[address] [place], [id number] Subjective: * Chief Complaints: * 2 month * HPI: S ymptom(s): patient is a 79 yo female here for 2 month follow up visit/ breathing is good and now complaining of gout in thumb. * ROS: G eneral/Constitutional: Denies C hills. D enies F atigue. D enies F ever. D enies H eadache. E NT: Denies S ore throat. R espiratory: Trumanies C ough. D ensonia S hortness of breath at rest. A dmits S hortness of breath with exertion. G astrointestinal: Richy D iarrhea. D enies N ausea. * Medical History: * Surgical History: * Hospitalization/Major Diagno stic Procedure: * Medications: T akingBumetanide 1 MG Tablet 1 tablet Orally Once a day Jardiance 10 MG Tablet 1 tablet Orally Once a day amLODIPine Besylate 10 MG Tablet 0.5 tablet Orally Once a day Albuterol Sulfate HFA 108 (90 Base) MCG/ACT Aerosol Solution INHALE 1 PUFF BY MOUTH EVERY 4 HOURS NEEDED Montelukast Sodium 10 MG Tablet TAKE 1 TABLET BY MOUTH EVERY DAY Amoxicillin-Pot Clavulanate 875-125 MG Tablet 1 tablet Orally every 12 hrs Xarelto 20 MG Tablet TAKE 1 TABLET BY MOUTH EVERY DAY WITH FOOD Taking Bumetanide 1 MG Tablet 1 tablet Orally Once a day Taking Jardiance 10 MG Tablet 1 tablet Orally Once a day Taking amLODIPine Besylate 10 MG Tablet 0.5 tablet Orally Once a day Taking Albuterol Sulfate HFA 108 (90 Base) MCG/ACT Aerosol Solution INHALE 1 PUFF BY MOUTH EVERY 4 HOURS NEEDED Taking Montelukast Sodium 10 MG Tablet TAKE 1 TABLET BY MOUTH EVERY DAY Taking Amoxicillin-Pot Clavulanate 875-125 MG Tablet 1 tablet Orally every 12 hrs Taking Xarelto 20 MG Tablet TAKE 1 TABLET BY MOUTH EVERY DAY WITH FOOD Not-Taking/PRNFurosemide 40 MG Tablet 1 tablet Orally Once a day Klor-Con 10 10 MEQ Tablet Extended Release 1 tablet with food Orally once a day Ferrous Sulfate 324 (65 Fe) MG Tablet Delayed Release 1 tablet Orally twice a day Advair Diskus 250-50 MCG/DOSE Aerosol Powder Breath Activated INHALE 1 PUFF BY MOUTH TWICE DAILY Not-Taking/PRN Furosemide 40 MG Tablet 1 tablet Orally Once a day Not-Taking/PRN Klor-Con 10 10 MEQ Tablet Extended Release 1 tablet with food Orally once a day Not-Taking/PRN Ferrous Sulfate 324 (65 Fe) MG Tablet Delayed Release 1 tablet Orally twice a day Not-Taking/PRN Advair Diskus 250-50 MCG/DOSE Aerosol Powder Breath Activated INHALE 1 PUFF BY MOUTH TWICE DAILY DiscontinuedmetOLazone 5 MG Tablet 1 tablet Orally Two times a Week Medication List reviewed and reconciled with the patientDiscontinued metOLazone 5 MG Tablet 1 tablet Orally Two times a Week Medication List reviewed and reconciled with the patient * Allergies: N .K.D.A.yes[Allergies Verified] Objective: * Vitals: H t: 66, BP:92/48, Repeat BP:90/50. patient weighed 128 at home. * Examination: G eneral Examination: GENERAL APPEARANCE: a lert, well hydrated, in no distress.? SKIN: g ood turgor. HEART: r egular rate and rhythm, no murmurs, rubs, gallops.? LUNGS: n o wheezes, rales, rhonchi, good air movement, clear to auscultation bilaterally. EXTREMITIES: a bnormal with tenderness to palpation of the first joint of rt hand. Assessment: * Assessment: 1. G out - M10.9 (Primary) 2 . H ypotension due to drugs - I95.2 Plan: * Treatment: 2. H ypotension due to drugs Continue amLODIPine Besylate Tablet, 2.5 MG, 1 tablet, Orally, Once a day, 30 days, 30 Tablet, Refills 3. Notes: stable, will continue current regiment * Procedure Codes: * Follow Up: 2 Weeks * * Sign off status: Completed true * Provider: Arjun Guido MD Date: 0 07/20/2025 Generated for Danyelle bentley/Satish/eTcisco on: 1 12/18/2024 09:08 PM EST History and Physical Notes * HPI (History of Present Illness) Category Sub-Category Detail Notes Category Not es Symptom(s) patient is a 79 yo female here for 2 month follow up visit/ breathing is good and now complaining of gout in thumb Examination Category Sub-Category Detail Notes Category Not es General Examination GENERAL APPEARANCE: alert, w ell hydrated, in no distress HEART: regular rate and rhy thm, no murmurs, rubs, gallops LUNGS: no wheezes, rales, r honchi, good air movement, clear to auscultation bilaterally SKIN: good turgor EXTREMITIES: abnormal with tender ness to palpation of the first joint of rt hand
--- OUTSIDE RECORDS SUMMARY | 2025-08-04 09:15 | XMS_ITS ---
Author Organization Jerome Guido MD Address [address] [place] [phone] Care Team Providers Care Financial Retirement Plan Specialist Name Role Phone Jerome Guido Primary Care Provider Allergies No Known Allergies REASON FOR VISIT 2 week Medications Medication SIG (Take, Route, Frequency, Duration) Notes Start Date End Date Status amLODIPine Besylate 2.5 MG 1 tablet Orally Once a day for 30 days Active predniSONE 20 MG 1 tablet with food o r milk Orally Once a day for 5 days 07/20/2025 Active Advair Diskus 250-50 MCG/DOSE INHALE 1 PUFF BY MOUTH TWICE DAILY for 30 Not-Taking Ferrous Sulfate 324 (65 Fe) MG 1 tablet Orally twice a day Not-Taking Klor-Con 10 10 MEQ 1 tablet with [...] day Active Vital Signs Blood pressure systolic 92 mm Hg 08/04/20 25 Blood pressure diastolic 60 mm Hg 025 Height 66 in 08/04/2025 Weight 136 lbs 08/04/2025 BMI 21.95 kg/m2 08/04/2025 weight isup 8 pounds since Encounters Encounter Location Date Provider Diagnosis Jerome Guido MD [address] [place] [address] Drive [address] [place] [phone] 08/04/2025 Jerome Guido Chronic systolic congestive heart failure I50.22 Assessments Encounter Date Diagnosis (ICD Code) Assessment Notes Treatment Notes Treatment Clinical Notes Section Notes 08/04/2025 Chronic systolic congestive heart failure (ICD-10 - I50.22) to take metolozone today and in 5 days/ has gained 8 pounds in last two weeks and breathing has gotten worse the last 2 dqys must have fluid overload Plan Of Treatment Treatment Notes Assessment Notes Chronic systolic congestive heart failur e to take metolozone today and in 5 days/ has gained 8 pounds in last two weeks and breathing has gotten worse the last 2 dqys must have fluid overload Next Appt Details Follow Up: 1 Week, Reason: Provider Name:Jerome Orosco iechristen, 01/04/2026 01:45:00 PM, [address] [place] [address] Drive, [address], [place], [place], [phone], Progress Notes * Manuel VIDALtrude EDOB: [birth year] (79 yo F)Acc No.[id number]:08/04/2025 Progress Notes Patient: Sophie VERDE Provider: Arjun Guido MD :1945 A ge:79 Y S ex:Female Date:08/04/2025 Address:[address] [place] [address] ANGÉLICA [id number] Subjective: * Chief Complaints: * 2 week * HPI: S ymptom(s): patient is a 79 yo female here for 2 week follow up visit. * ROS: G eneral/Constitutional: Denies Rajendra hills. D enies F atigue. D enies F ever. A dmits H eadache. E NT: Admits S ore throat. R espiratory: Denies Rajendra ough. D enies S hortness of breath at rest. D enies S hortness of breath with exertion. G astrointestinal: Admits D iarrhea. D enies N ausea. * Medical History: * Surgical History: * Hospitalization/Major Diagno stic Procedure: * Medications: T akingBumetanide 1 MG Tablet 1 tablet Orally Once a day Jardiance 10 MG Tablet 1 tablet Orally Once a day Albuterol Sulfate HFA 108 (90 Base) MCG/ACT Aerosol Solution INHALE 1 PUFF BY MOUTH EVERY 4 HOURS NEEDED Montelukast Sodium 10 MG Tablet TAKE 1 TABLET BY MOUTH EVERY DAY Amoxicillin-Pot Clavulanate 875-125 MG Tablet 1 tablet Orally every 12 hrs Xarelto 20 MG Tablet TAKE 1 TABLET BY MOUTH EVERY DAY WITH FOOD predniSONE 20 MG Tablet 1 tablet with food or milk Orally Once a day amLODIPine Besylate 2.5 MG Tablet 1 tablet Orally Once a day Taking Bumetanide 1 MG Tablet 1 tablet Orally Once a day Taking Jardiance 10 MG Tablet 1 tablet Orally Once a day Taking Albuterol [...] BY MOUTH EVERY DAY WITH FOOD Taking predniSONE 20 MG Tablet 1 tablet with food or milk Orally Once a day Taking amLODIPine Besylate 2.5 MG Tablet 1 tablet Orally Once a day Not- Taking/PRNFurosemide 40 MG Tablet 1 tablet Orally Once [...] INHALE 1 PUFF BY MOUTH TWICE DAILY * Allergies: N .K.D.A.yes[Allergies Verified] Objective: * Vitals: H t: 66, Wt: 136, BMI:21.95, BP:92/60, Wt-k.69. weight isup 8 pounds since 05-09-25. * Examination: G eneral Examination: GENERAL APPEARANCE: p leasant, in no acute distress. HEAD: n ormocephalic. SKIN: g ood turgor. HEART: r egular rate and rhythm, no murmurs, rubs, gallops.? LUNGS: n o wheezes, rales, rhonchi, good air movement, clear to auscultation bilaterally. EXTREMITIES: n o edema. Assessment: * Assessment: 1. C hronic systolic congestive heart failure - I50.22 (Primary) Plan: * Treatment: * Procedure Codes: * Preventive Medicine: CHF Care Plan: P atient Lifestyle Goals R elieve symptoms and improve quality of life, Have less trouble breathing. T reatment Goals T remigio medicine exactly as directed and plan for RX refills, Weigh yourself every day to see if you are retaining fluid. Call office if + or - 5lbs from previous day. B arriers N o Specific barriers. S elf-Managment Goals M onitor your symptoms daily. E xpected Outcome m anaging symptoms like shortness of breath and fatigue, improving quality of life; while aiming to slow the progression of the disease and prevent further deterioration of heart function. * Follow Up: 1 Week * * Sign off status: Completed true * Provider: Arjun Guido MD Date: 0 08/04/2025 Generated for Danyelle bentley/Satish/eTransmitting on: 1 12/18/2024 09:08 PM EST History and Physical Notes * HPI (History of Present Illness) Category Sub-Category Detail Notes Category Not es Symptom(s) patient is a 79 yo female here for 2 week follow up visit Examination Category Sub-Category Detail Notes Category Not es General Examination GENERAL APPEARANCE: pleasant, in n o acute distress HEAD: normocephalic HEART: regular rate and rhy thm, no murmurs, rubs, gallops LUNGS: no wheezes, rales, r honchi, good air movement, clear to auscultation bilaterally SKIN: good turgor EXTREMITIES: no edema
--- OUTSIDE RECORDS SUMMARY | 2025-10-17 09:00 | XMS_ITS ---
Author Organization Jerome Guido MD Address [address] [place] [phone] Care Team Providers Care Coal Conveyor Operator Name Role Phone Jerome Guido Primary Care Provider Allergies No Known Allergies REASON FOR VISIT 1 month Medications Medication SIG (Take, Route, Frequency, Duration) Notes Start Date End Date Status Jardiance 10 MG 1 tablet Orally Once a day Active Bumetanide 1 MG 1 tablet Orally Once a day Active Ferrous Sulfate 324 (65 Fe) MG 1 tablet Orally twice a day Not-Taking Advair Diskus 250-50 MCG/DOSE INHALE 1 PUFF BY MOUTH TWICE DAILY for 30 Not-Taking Klor-Con 10 10 MEQ 1 tablet with food Orally once a day for 30 days 04/21/2025 Not-Taking Xarelto 20 MG TAKE 1 TABLET BY ALANNA TH EVERY DAY WITH FOOD for 90 Active Furosemide 40 MG 1 tablet Orally Once a day Not-Taking Albuterol Sulfate HFA 108 (90 Base) MCG/ACT INHALE 1 PUFF BY MOUTH EVERY 4 HOURS NEEDED for 33 Active Montelukast Sodium 10 MG TAKE 1 TABLET B Y MOUTH EVERY DAY for 90 Active Immunizations Vaccine Route Administration Date Status Comme nts Influenza High Dose IM Intramuscular 10/17/2025 Administer ed Vital Signs Blood pressure systolic 102 mm Hg 10/17/20 25 Blood pressure diastolic 58 mm Hg 025 Height 66 in 10/17/2025 Weight 127 lbs 10/17/2025 BMI 20.5 kg/m2 10/17/2025 weight is down 9 pounds [facility] e 08-04-25 Encounters Encounter Location Date Provider Diagnosis Jerome Guido MD [address] [place] [address] [place] [phone] 10/17/2025 Jerome Guido Hypotension due to drugs I95.2 ; Paroxysmal atrial fibrillation I48.0 and Encounter for administration of vaccine Z23 Assessments Encounter Date Diagnosis (ICD Code) Assessment Notes Treatment Notes Treatment Clinical Notes Section Notes 10/17/2025 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) patient verbalized understanding to d/c medication 10/17/2025 Paroxysmal atrial fibrillation (ICD-10 - I48.0) EKG reviewed 10/17/2025 Encounter for administration of vaccine (ICD-10 - Z23) Plan Of Treatment Medication Medication Name Sig Start Date Stop Date Notes amLODIPine Besylate 2.5 MG 1 tablet Orally Once a day Treatment Notes Assessment Notes Hypotension due to drugs patient verbali zed understanding to d/c medication Paroxysmal atrial fibrillation EKG revie thu Pending Test Test Name Order Date Electrocardiogram (EKG) 10/17/2025 Next Appt Details Provider Name:Jerome Orosco ier, 01/04/2026 01:45:00 PM, [address] [place] [address], Suite [facility], [place], [place], [phone], Progress Notes * Sophie VIDAL EDOB: [birth year] (79 yo F)Acc No.[id number]:10/17/2025 Progress Notes Patient: Manuel VERDEtrude Mateo Provider: Arjun Guido MD :1945 A ge:79 Y S ex:Female Date:10/17/2025 Address:[address] [place] [address] [id number] Subjective: * Chief Complaints: * 1 . 1 month. * HPI: S ymptom(s): patient is a 79 yo female here for one week follow up visit/ needs scooter as she is dizzy when standing. feels light headed when standing. * ROS: G eneral/Constitutional: Denies C hills. D enies F atigue. D enies F ever. D enies H eadache. E NT: Denies S ore throat. R espiratory: Denies C ough. D enies S hortness of breath at rest. A dmits S hortness of breath with exertion. C ardiovascular: Denies C hest pain at rest. D enies C hest pain with exertion. D enies D izziness. D enies P alpitations. A dmits S hortness of breath. G astrointestinal: Denies D iarrhea. D enies N ausea. 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 * Medications: T aking Bumetanide 1 MG Tablet 1 tablet Orally Once a day , Taking Jardiance 10 MG Tablet 1 tablet Orally Once a day , Taking Albuterol Sulfate HFA 108 (90 Base) MCG/ACT Aerosol Solution INHALE 1 PUFF BY MOUTH EVERY 4 HOURS NEEDED , Taking Montelukast Sodium 10 MG Tablet TAKE 1 TABLET BY MOUTH EVERY DAY , Taking Xarelto 20 MG Tablet TAKE 1 TABLET BY MOUTH EVERY DAY WITH FOOD , Taking amLODIPine Besylate 2.5 MG Tablet 1 tablet Orally Once a day , Not-Taking/PRN Furosemide 40 MG Tablet 1 tablet Orally Once a day , Not-Taking/PRN Klor-Con 10 10 MEQ Tablet Extended Release 1 tablet with food Orally once a day , Not-Taking/PRN Ferrous Sulfate 324 (65 Fe) MG Tablet Delayed Release 1 tablet Orally twice a day , Not-Taking/PRN Advair Diskus 250-50 MCG/DOSE Aerosol Powder Breath Activated INHALE 1 PUFF BY MOUTH TWICE DAILY , Discontinued Amoxicillin-Pot Clavulanate 875-125 MG Tablet 1 tablet Orally every 12 hrs , Discontinued predniSONE 20 MG Tablet 1 tablet with food or milk Orally Once a day , Medication List reviewed and reconciled with the patient * Allergies: N .K.D.A. Objective: * Vitals: H t: 66, Wt: 127, BMI:20.5, BP:102/58, Wt-k.61. weight is down 9 pounds since 08-04-25. * Examination: G eneral Examination: GENERAL APPEARANCE: a lert, well hydrated, in no distress.? HEAD: n ormocephalic. SKIN: g ood turgor. HEART: r egular rate and rhythm, no murmurs, rubs, gallops.? LUNGS: n o wheezes, rales, rhonchi, good air movement, clear to auscultation bilaterally. EXTREMITIES: n o edema. Assessment: * Assessment: 1. H ypotension due to drugs - I95.2 (Primary) 2 . P aroxysmal atrial fibrillation - I48.0 3 . E ncounter for administration of vaccine - Z23 ? Plan: * Treatment: 2. P aroxysmal atrial fibrillation I maging: Electrocardiogram (EKG) Notes: EKG reviewed?? * Immunizations: Influenza High Dose : 0.5 mL (Dose No:1) (Route: Intramuscular) given by Cintia Thomas , Office Staff on Right Deltoid * Procedure Codes: 9 0662 FLU VACC PRSV FREE INC ANTIG, G0008 ADMN FLU VAC NO FEE SCHED SAME DAY, 57962 -ELECTROCARDIOGRAM, COMPLETE * Preventive Medicine: Immunizations: I nfluenza H ave you had a flu shot since the most recent July 10? Y es. * * The named appointment provid er may or may not be the originator of this progress note, and it is not deemed complete until electronically signed by the appointment provider. Sign off status: Pending * Provider: Arjun Guido MD Date: 12/18/2024 Generated for Danyelle bentley/Satish/Reneitting on: 12/18/2024 09:07 PM EST History and Physical Notes * HPI (History of Present Illness) Category Sub-Category Detail Notes Category Not es Symptom(s) patient is a 79 yo female here for one week follow up visit/ needs scooter as she is dizzy when standing. feels light headed when standing. Examination Category Sub-Category Detail Notes Category Not es General Examination GENERAL APPEARANCE: alert, w ell hydrated, in no distress HEAD: normocephalic HEART: regular rate and rhy thm, no murmurs, rubs, gallops LUNGS: no wheezes, rales, r honchi, good air movement, clear to auscultation bilaterally SKIN: good turgor EXTREMITIES: no edema
--- NOTE | 2025-10-17 15:14 | CA_ITS ---
Transthoracic Echocardiogram Patient (Last, First, Middle): Sophie Schulz E Gender: F Date of : 1945 Age: 79 Procedure Date: 10/17/2025 Procedure Type: Transthoracic Echocardiogram Location: OP Height: 172.72 cm Weight: 57.61 kg BSA: 1.69 m2 Heart Rate: bpm BP: 100 / 60 mmHg Principal Process Engineer: TO Referring MD: Yaya Bear SHOW CARD WRITER Solar Project Coordination Specialist: Ankit Stuart MD Symptoms: I50.30 - Unspecified diastolic (congestive) heart failure Study Quality: Fair, contrast ECG Rhythm: Ventriculary paced rhythm Conclusions: - 1. Normal LV ejection fraction of 60- 65%, with basal septal thinning and akinesis consistent with prior alcohol septal ablation with other regional wall motion abnormality consistent with coronary artery disease 2. Severe biatrial enlargement 3. Normally functioning bioprosthetic aortic valve with mean gradient of 10 mm Hg with mild periprosthetic aortic regurgitation 4. Severe mitral annular calcification with possible mitral stenosis and mild mitral regurgitation noted 5. Moderate tricuspid regurgitation with moderately elevated right ventricular systolic pressure with severely elevated right atrial pressures 6. No gross pericardial effusion Findings Left Ventricle Normal left ventricular size, thickness, and systolic function. The visually estimated ejection fraction is between 60-65%. There is paradoxical septal motion consistent with a right ventricular pacemaker. Diastolic function is indeterminate on the basis of available data. Elevated filling pressures. Wall Motion Rest Echo Findings The basal inferior, basal anteroseptal, and basal inferolateral segments are akinetic. All other scored wall segments showed normal motion. Right Ventricle Mildly increased right ventricular cavity size. There is moderately decreased right ventricular systolic function. There is a pacemaker wire seen in the right ventricle. Atria Severe biatrial enlargement. There is no evidence of interatrial shunt. A pacemaker wire is identified in the right atrium. Aortic Valve A bioprosthetic aortic valve is present. The prosthetic aortic valve appears to be functioning normally. The mean gradient is 10 mmHg. There is mild aortic valve regurgitation. Mitral Valve There is moderate anterior and severe posterior mitral leaflet thickening. There is severe mitral annular calcification. There is mild mitral valve regurgitation. There is no mitral valve stenosis. Pulmonic Valve The pulmonic valve is likely normal. Tricuspid Valve Likely normal tricuspid valve structure and function. There is moderate tricuspid valve regurgitation. Significantly elevated right atrial pressure. Moderate pulmonary hypertension is present. Great Vessels The aorta was not well visualized. The pulmonary artery was not well visualized. There is mild dilatation of the ascending aorta measuring 4.30 cm. Venous The inferior vena cava is severely dilated and collapses less than 50% with inspiration. Pericardium/Pleural There is no evidence of pericardial effusion. Prior Study Comparison No significant change compared to prior study dated: 10/24/2024. Measurements 2D Linear Measurements IVSd: 0.95 0.6-0.9/0.6-1.0 cm LVIDd: 5.27 3.9-5.3/4.2-5.9 cm LVIDd Index: 3.12 2.4-3.2/2.2-3.1 cm/m2 LVIDs: 4.21 2.0-3.6 cm LVPWd: 1.11 0.7-1.1 cm LA Diam: 4.20 2.7-3.8/3.0-4.0 cm LAIDs Index: 2.49 1.5-2.3 cm/m2 LV Mass: 258.04 67-162/88-224 g LV Mass Index: 152.69 43-95/49-115 g/m2 LVOT Diam: 1.80 3.0+(-)1.3 cm Mitral Valve MV VTI: 0.38 MV Pk Yo: 1.60 MV Mn Yo: 0.93 MV Pk Grad: 10.00 MV Mn Grad: 4.00 MV Pk E: 1.43 E'Lateral: 7.07 E'Medial: 4.03 E/E' Med: 35.50 E/E' Lat: 20.20 MVA Continuity: 0.96 Aortic Valve AoV Pk Yo: 2.05 AoV Mn Yo: 1.48 AoV VTI: 0.36 AoV Pk Grad: 17.00 Aov Mn Grad: 10.00 TYREL Cont.VTI: 1.00 LVOT LVOT Pk Yo: 0.88 LVOT Mn Yo: 0.57 LVOT VTI: 0.14 LVOT Pk Grad: 3.00 LVOT Mn Grad: 1.00 LVOT Diam: 1.80 LVOT Area: 2.54 Diastolic Function MV Pk E: 1.43 E'Medial: 4.03 E/E' Med: 35.50 E' Laterial: 7.07 E/E' Lat: 20.20 Right Ventricle TAPSE (mm): 12.60 TVS' Yo: 8.81 Tricuspid Valve TR Pk Yo: 3.20 TR Pk Grad: 41.00 RA Press: 15.00 RVSP: 56.00 Great Vessels Aorta Ao Asc: 4.30 2.1-3.4 cm Updated in Other Vendor System with Status of Final Ankit Stuart MD electronically signed on 10/18/2025 3:56:56 PM with status of Final
[2025-10-17 16:53] LABS: Anion Gap 16 (12-20); Blood Urea Nitrogen 26 mg/dL (9-16); Calcium 9.3 mg/dL (8.4-10.2); Carbon Dioxide 23 mmol/L (22-29); Chloride 109 mmol/L (96-108); Estimated Glomerular Filt Rate 50; Potassium 3.8 mmol/L (3.3-5.1); Sodium 144 mmol/L (135-145)
--- OUTSIDE RECORDS SUMMARY | 2025-10-17 21:11 | XMS_ITS | Patient Health Record ---
Author Organization Jerome Guido MD Address [address] [place], [place] [id number] Care Team Providers Care Ob Nurse Name Role Phone Jerome Guido Primary Care Provider Allergies No Known Allergies Results Component Value Reference Range Notes Basic Metabolic Panel Reviewed date:04/25/2025 09:02:51 AM Interpretation: Performing Lab:[facility], [address] [place] [phone] Notes/Report: Sodium 139 135-145 mmol/L Potassium 3.2 3.3-5.1 mmol/L Chloride 100 96-108 mmol/L Carbon Dioxide 28 22-29 mmol/L Anion Gap 14 12-20 Blood Urea Nitrogen 31 9-16 mg/dL Creatinine 1.24 0.5-1.4 mg/dL Estimated Glomerular Filt Rate 42 Chronic Kidney Disease: Estimated GFR < 60 mL/min/1.73m2 Severe Kidney Disease: Estimated GFR < 15 mL/min/1.73m2 Glucose Random 131 60-115 mg/dL Calcium 9.4 8.4-10.2 mg/dL Potassium Reviewed date:05/09/2025 04:30:07 PM Interpretation: Performing Lab:[facility], [address] [place] [phone] Notes/Report: Potassium 4.1 3.3-5.1 mmol/L Blood Urea Nitrogen Reviewed date:05/11/2025 07:34:04 AM Interpretation: Performing Lab:[facility], [address] [place] [phone] Notes/Report: Blood Urea Nitrogen 37 9-16 mg/dL Creatinine Reviewed date:05/09/2025 04:29:36 PM Interpretation: Performing Lab:[facility], [address] [place] [phone] Notes/Report: Creatinine 1.28 0.5-1.4 mg/dL Estimated Glomerular Filt Rate 40 Chronic Kidney Disease: Estimated GFR < 60 mL/min/1.73m2 Severe Kidney Disease: Estimated GFR < 15 mL/min/1.73m2 Basic Metabolic Panel Reviewed date:01/03/2025 12:29:45 PM Interpretation: Performing Lab:[facility], [address] [place] [phone] Notes/Report: Sodium 143 135-145 mmol/L Potassium 3.9 [...] Peptide Reviewed date:01/03/2025 12:29:02 PM Interpretation: Performing Lab:[facility], [address] [place] [phone] Notes/Report: B Type Natriuretic Peptide 1059 <100 pg/mL For those patients who are being treated with Natrecor (nesiritide, recombinant BNP), BNP testing should be performed at least two hours post treatment in order to ensure that only endogenous levels of BNP are detected. Basic Metabolic Panel Reviewed date:01/04/2025 01:23:10 PM Interpretation: Performing Lab:[address] [phone] Notes/Report: Sodium 142 135-145 mmol/L Potassium 4.2 [...] Peptide Reviewed date:01/04/2025 01:23:28 PM Interpretation: Performing Lab:[facility], [address] [place] [phone] Notes/Report: B Type Natriuretic Peptide 672 <100 pg/mL For those patients who are being treated with Natrecor (nesiritide, recombinant BNP), BNP testing should be performed at least two hours post treatment in order to ensure that only endogenous levels of BNP are detected. Liver Panel Reviewed date:01/05/2025 04:13:23 PM Interpretation: Performing Lab:[address] [phone] Notes/Report: Bilirubin Total 0.7 0.0-1.0 mg/dL Bilirubin Direct 0.4 0.0-0.5 mg/dL Aspartate Amino Transferase 18 5-31 U/L Alanine Aminotransferase 15 0-31 U/L Total Protein 6.4 6.5-8.0 g/dL Albumin Level 3.3 3.5-5.0 g/dL Alkaline Phosphatase 130 39-117 U/L Basic Metabolic Panel Reviewed date:01/05/2025 04:13:14 PM Interpretation: Performing Lab:[facility], [address] [place] [phone] Notes/Report: Sodium 142 135-145 mmol/L Potassium 4.7 [...] 108 60-115 mg/dL Calcium 8.3 8.4-10.2 mg/dL CT chest wo con Reviewed date:03/24/2025 01:35:51 PM Interpretation:message sent to PCP Performing Lab: Notes/Report: [address] [address] [address] Scan Report Signed Patient: Sophie Schulz MR#: [id number] : 1945 Acct:[id number] Age/Sex: 79 / F ADM Date: 03/17/25 Loc: HO.CT Attending Dr: Ankit Stuart MD Ordering Physician: Ankit Stuart MD Date of Service: 03/17/25 Procedure(s): CT chest wo IV con Accession Number(s): [id number] cc: Jerome Guido MD; Ankit Stuart MD Report Number: [id number]: Total DLP = 198.00 mGy-cm CLINICAL HISTORY: T46.2X1A - Poisoning by other antidysrhythmic drugs, accidental (uninten... CT chest without contrast Comparison: None Findings: The heart is enlarged. There is severe mitral annular calcification. There is a cardiac pacemaker. There is severe coronary artery calcification. The patient is status post TAVR. There are multiple thyroid nodules measuring up to 2 cm in size. The dominant nodule is partially calcified. There is no mediastinal lymphadenopathy. 5 mm pleural-based nodule within the medial right upper lobe on image 45. Linear foci of atelectasis and/or scarring within the posterior aspect of the right upper lobe and within the bilateral lower lobes. Mild heterogeneity of lung parenchyma likely secondary to areas of air trapping. No consolidation or pleural effusion. The upper abdomen is unremarkable. There are advanced degenerative changes of the bilateral shoulders. There are bilateral shoulder effusions, right much larger than left. IMPRESSION: 1. There is a 5 mm right upper lobe nodule. Recommend follow-up per Fleischner criteria. 2. There are multiple thyroid nodules. Consider ultrasound evaluation. This document has been electronically signed by: Dulce Maria Hawk MD on 03/20/2025 13:35:15 Dictated By: Dulce Maria Hawk MD Signed By: <Electronically signed by Dulce Maria Hawk MD in OV> 03/20/25 1336 DD/ 1335 TD/TT: 03/20/25 1335 Architect: [place] [address] CT Scan Report Signed Patient: Servando Schulz MR#: [id number] : 1945 Acct:[id number] Age/Sex: 79 / F ADM Date: 03/17/25 Loc: HO.CT Attending Dr: Ankit Stuart MD Ordering Physician: Ankit Stuart MD Date of Service: 03/17/25 Procedure(s): CT devin st wo IV con Accession Number(s): [id number] cc: Jerome Guido MD; Ankit Stuart MD Report Number: [id number]: Total DLP = 198.00 mGy-cm CLINICAL HISTORY: T46.2X1A - Poisoning by other antidysrhythmic drugs, accidental (uninten... CT chest without contrast Comparison: None Findings: The heart is enlarge d. There is severe mitral annular calcification. There is a cardiac pacemak er. There is severe coronary artery calcification. The patient is status po st TAVR. There are multiple thyroid nodules measuring up to 2 cm in size. The dominant nodule is partially calcified. There is no mediastinal lymphadenopathy. 5 mm pleural-based nodule within the medial right upper lobe on image 45. Linear foci of atelectasis and/or scarring within the posterior aspect of the right upper lobe and within the bilateral lower lobes. Mild heterogeneity of rosi g parenchyma likely secondary to areas of air trapping. No consolidation or pleural effusion. The upper abdomen is unremarkable. There are advanced degenerative changes of the bilateral shoulders. There are bilateral should er effusions, right much larger than left. IMPRESSION: 1. There is a 5 mm r ight upper lobe nodule. Recommend follow-up per Fleischner criteria. 2. There are multipl e thyroid nodules. Consider ultrasound evaluation. This document has be en electronically signed by: Dulce Maria Hawk MD on 03/20/2025 13:35:15 Dictated By: Dulce Maria Hawk MD Signed By: <Electronically signed by Dulce Maria Hawk MD in OV> 03/20/25 1336 DD/ 1335 TD/TT: 03/20/25 1335 Architect: Complete Blood Count no Diff Reviewed date:04/10/2025 11:25:16 AM Interpretation: Performing Lab:[facility], [address] [place] [phone] Notes/Report: White Blood Count 6.2 4.8-10.8 X10*3/uL Red Blood Count 3.85 4.20-5.50 X10*6/uL Hemoglobin 9.0 12.0-16.0 g/dl Hematocrit 30.7 37.0-47.0 % Mean Corpuscular Volume 79.7 80.0-98.0 fL Mean Corpuscular Hemoglobin 23.4 27.0-33.0 pg Mean Corpuscular HGB Conc 29.3 31.0-35.0 g/dl Red Cell Distribution Width 18.8 11.0-16.0 % Platelet Count 378 160-400 X10*3/uL Mean Platelet Volume 9.3 9.4-12.3 fL NRBC Pct Auto 0.0 0.0-0.2 /100WBC NRBC Abs Auto 0.000 0.0-0.012 X10*3/uL Basic Metabolic Panel Reviewed date:04/06/2025 10:01:31 AM Interpretation: Performing Lab:[facility], [address] [place] [phone] Notes/Report: Sodium 142 135-145 mmol/L Potassium 4.0 3.3-5.1 mmol/L Chloride 109 96-108 mmol/L Carbon Dioxide 22 22-29 mmol/L Anion Gap 15 12-20 Blood Urea Nitrogen 22 9-16 mg/dL Creatinine 0.88 0.5-1.4 mg/dL Estimated Glomerular Filt Rate > 60 Chronic Kidney Disease: Estimated GFR < 60 mL/min/1.73m2 Severe Kidney Disease: Estimated GFR < 15 mL/min/1.73m2 Glucose Random 88 60-115 mg/dL Calcium 8.8 8.4-10.2 mg/dL B Type Natriuretic Peptide Reviewed date:04/06/2025 10:01:41 AM Interpretation: Performing Lab:[facility], [address] [place] [phone] Notes/Report: B Type Natriuretic Peptide 228 <100 pg/mL B Type Natriuretic Peptide Reviewed date:04/20/2025 05:21:18 PM Interpretation: Performing Lab:[facility], [address] [place] [phone] Notes/Report: B Type Natriuretic Peptide 221 <100 pg/mL Basic Metabolic Panel Reviewed date:05/27/2025 05:24:34 PM Interpretation: Performing Lab:[facility], [address] [place] [phone] Notes/Report: Sodium 142 135-145 mmol/L Potassium 4.2 3.3-5.1 mmol/L Chloride 111 96-108 mmol/L Carbon Dioxide 23 22-29 mmol/L Anion Gap 12 12-20 Blood Urea Nitrogen 32 9-16 mg/dL Creatinine 0.91 0.5-1.4 mg/dL Estimated Glomerular Filt Rate 60 Chronic Kidney Disease: Estimated GFR < 60 mL/min/1.73m2 Severe Kidney Disease: Estimated GFR < 15 mL/min/1.73m2 Glucose Random 98 60-115 mg/dL Calcium 9.1 8.4-10.2 mg/dL TSH reflex Free T4 Reviewed date:05/27/2025 05:24:13 PM Interpretation: Performing Lab:[facility], [address] [place] [phone] Notes/Report: TSH reflex Free T4 2.80 0.32-4.0 uIU/mL Basic Metabolic Panel Reviewed date:10/17/2025 05:38:40 PM Interpretation: Performing Lab:[facility], [address] [place] [phone] Notes/Report: Sodium 144 135-145 mmol/L Potassium 3.8 3.3-5.1 mmol/L Chloride 109 96-108 mmol/L Carbon Dioxide 23 22-29 mmol/L Anion Gap 16 12-20 Blood Urea Nitrogen 26 9-16 mg/dL Creatinine 1.06 0.5-1.4 mg/dL Estimated Glomerular Filt Rate 50 Chronic Kidney Disease: Estimated GFR < 60 mL/min/1.73m2 Severe Kidney Disease: Estimated GFR < 15 mL/min/1.73m2 Glucose Random 119 60-115 mg/dL Calcium 9.3 8.4-10.2 mg/dL Reason For Referral Reason thyroid nodule pleas e eval and treat Diagnosis 1 Nontoxic single thyr oid nodule (E04.1) Referral Organization Jerome Guido MD Referring Provider First Name Jerome Referring Provider Last Name Lata Referring Provider Speciality Internal M edicine Referred Provider Geneva Holly Referred Provider Specialty Endocrinolog y General Notes Carley Anthony 0 11/22/2024 02:45:49 PM > referral info faxedGabrielle Annette 12/12/2024 07:31:41 AM > info mailed, Carley Anthony 03/24/2025 10:27:52 AM >left message with new date and time. Also mailed all info to patient with a letter Referral Priority Routine Referral Appointment Date 05/16/2025 Medications Medication SIG (Take, Route, Frequency, Duration) Notes Start Date End Date Status Albuterol Sulfate HFA 108 (90 Base) MCG/ACT INHALE 1 PUFF BY MOUTH EVERY 4 HOURS NEEDED for 33 Active Jardiance 10 MG 1 tablet Orally Once a day Active Montelukast Sodium 10 MG TAKE 1 TABLET B Y MOUTH EVERY DAY for 90 Active Bumetanide 1 MG 1 tablet Orally Once a day Active Ferrous Sulfate 324 (65 Fe) MG 1 tablet Orally twice a day Not-Taking Klor-Con 10 10 MEQ 1 tablet with food Orally once a day for 30 days 04/21/2025 Not-Taking Advair Diskus 250-50 MCG/DOSE INHALE 1 PUFF BY MOUTH TWICE DAILY for 30 Not-Taking Xarelto 20 MG TAKE 1 TABLET BY ALANNA TH EVERY DAY WITH FOOD for 90 Active Furosemide 40 MG 1 tablet Orally Once a day Not-Taking Immunizations Vaccine Route Administration Date Status Comme nts Flu Vaccine IM Intramuscular 07/27/2012 Administered PPSV23 (Pnemovax) IM Intramuscular 10/05/2012 Administered Prevnar 13 Unknown 12/30/2012 Administered Flu Vaccine Unknown 08/11/2013 Administered Flu Vaccine IM Intramuscular 10/17/2014 Administered zFluzone Quadrivalent IM Intramuscular 09/11/2015 Administered Flu Vaccine Unknown 12/04/2016 Administered Given while inpatient at [facility]. Fluarix Quadrivalent IM Intramuscular 07/23/2017 Administered PPSV23 [...] High Dose IM Intramuscular 08/12/2024 Administer ed Influenza High Dose IM Intramuscular 10/17/2025 Administer ed Problems Problem Type SNOMED Code ICD Code Onset Dates Problem Status W/U Status Risk Notes Problem 395550289 Thyroid nodule (E04.1) Active confirmed Problem Gout (19197252) Gout (M10.9) Active confirmed Problem Sinusitis (14530915) Sinusitis (J32.9) Active confirmed Problem 581067281 Paroxysmal atria l fibrillation (I48.0) Active confirmed Problem Non-toxic single thyroid nodule (993098869) Nontoxic single thyroid nodule (E04.1) Active confirmed Problem 25193860 Other chronic pain (G89.29) Active confirmed Problem 780552862 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) Active confirmed Problem 137433691 Mild intermitten t asthma without complication (J45.20) Active confirmed Problem 026182029 Chronic systolic congestive heart failure (I50.22) Active confirmed Problem 766608130 Nonrheumatic aortic valve stenosis (I35.0) Active confirmed Problem 47920922 Other iron deficiency anemia (D50.8) Active confirmed Problem Cervical disc disease (916588054) Cervical disc disease (M50.90) Active confirmed Problem 728811333 Non-rheumatic mitral regurgitation (I34.0) Active confirmed Problem Idiopathic peripheral neuropathy (69873552) Idiopathic peripheral neuropathy (G60.9) Active confirmed Problem 00830515 Pulmonary hypertension (I27.20) Active confirmed Problem Gout (04154870) Acute gout of right hand, unspecified cause (M10.9) Active confirmed Problem 4209869270341 S/P TAVR (transcatheter aortic valve replacement) (Z95.2) Active confirmed Vital Signs Blood pressure diastolic 58 mm Hg 10/17/2025 catherine ght is down 9 pounds since 08-04-25 Height 66 in 10/17/2025 weight is down 9 pounds since 08-04-25 Blood pressure systolic 102 mm Hg 10/17/2025 weig ht is down 9 pounds since 08-04-25 Weight 127 lbs 10/17/2025 weight is down 9 pounds since 08-04-25 BMI 20.5 kg/m2 10/17/2025 weight is down 9 pounds since 08-04-25 Encounters Encounter Location Date Provider Diagnosis Jerome Guido MD [address] [place], [place] [id number] 10/17/2025 Jerome Guido Hypotension due to drugs I95.2 ; Paroxysmal atrial fibrillation I48.0 and Encounter for administration of vaccine Z23 Jerome Guido MD [address] [place], [place] [id number] 11/17/2024 Jerome Guido Chronic systolic congestive heart failure I50.22 and S/P TAVR (transcatheter aortic valve replacement) Z95.2 Jerome Guido MD [address] [place] [id number] 01/02/2025 Jerome Guido IHSS (idiopathic hypertrophic subaortic stenosis) I42.1 and Encounter for general adult medical examination with abnormal findings Z00.01 Jerome Guido MD [address] [place] [id number] 02/07/2025 Jerome Guido Chronic systolic congestive heart failure I50.22 ; Paroxysmal atrial fibrillation I48.0 and Pneumonia J18.9 Jerome Guido MD [address] [place] [id number] 04/11/2025 Jerome Guido Chronic systolic congestive heart failure I50.22 ; Edema extremities R60.0 and Sinusitis J32.9 Jerome Guido MD [address] [place] [id number] 04/20/2025 Jerome Guido Chronic systolic congestive heart failure I50.22 and Edema extremities R60.0 Jerome Guido MD [address] [place] [id number] 05/09/2025 Jerome Guido Hypokalemia E87.6 ; Elevated BUN R79.9 and Chronic systolic congestive heart failure I50.22 Jerome Guido MD [address] [place] [id number] 07/20/2025 Jerome Guido Gout M10.9 and Hypotension due to drugs I95.2 Jerome Guido MD [address] [place] [id number] 08/04/2025 Jerome Guido Chronic systolic congestive heart failure I50.22 Jerome Guido MD [address] [place] [id number] 11/01/2024 Jerome Guido MD [address] [place] [id number] 01/06/2025 Jerome Guido MD [address] [place] [id number] 02/09/2025 Jerome Guido MD [address] [place] [id number] 03/14/2025 Jerome Guido MD [address] [place] [id number] 03/21/2025 Jerome Guido Thyroid nodule E04.1 Jerome Guido MD [address] [place] [id number] 03/21/2025 Jerome Guido MD [address] [place] [id number] 03/24/2025 Jerome Guido MD [address] [place] [id number] 04/21/2025 Jerome Guido MD [address] [place] [id number] 06/15/2025 Jerome Guido Assessments Encounter Date Diagnosis (ICD Code) Assessment Notes Treatment Notes Treatment Clinical Notes Section Notes 10/17/2025 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) patient verbalized understanding to d/c medication 10/17/2025 Paroxysmal atrial fibrillation (ICD-10 - I48.0) EKG reviewed 11/17/2024 Chronic systolic congestive heart failure (ICD-10 [...] stopped her amiodorone, will continue current regiment 04/11/2025 Chronic systolic congestive heart failure (ICD-10 - I50.22) 04/11/2025 Edema extremities (ICD-10 - R60.0) 04/20/2025 Chronic systolic congestive heart failure (ICD-10 - I50.22) doing much better with the metolozone 05/09/2025 Hypokalemia (ICD-10 - E87.6) had developed hypokalemia on the metalozone and is replacing will rechec 05/09/2025 Elevated BUN (ICD-10 - R79.9) with the massive diureses there was a increase in the bun will check as we have decrease the metalozone to twice a week 07/20/2025 Gout (ICD-10 - M10.9) patient verbalized understanding of medication and directions for use 07/20/2025 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) stable, will continue current regiment 08/04/2025 Chronic systolic congestive heart failure (ICD-10 - I50.22) to take metolozone today and in 5 days/ has gained 8 pounds in last two weeks and breathing has gotten worse the last 2 dqys must have fluid overload 03/21/2025 Thyroid nodule (ICD-10 - E04.1) 10/17/2025 Encounter for administration of vaccine (ICD-10 - Z23) 02/07/2025 Pneumonia (ICD-10 - J18.9) is doing well after treatment/ order faxed to [facility] patient reg 04/11/2025 Sinusitis (ICD-10 - J32.9) 04/20/2025 Edema extremities (ICD-10 - R60.0) has resolved 05/09/2025 Chronic systolic congestive heart failure (ICD-10 - I50.22) doing much better on the metolozone/ not being short of breath. still sleeps sitting up but maybe due to habits Plan Of Treatment Pending Test Test Name Order Date Electrocardiogram (EKG) 10/17/2025 BRAIN NATRIURETIC PEPTIDE (BNP) 04/20/20 25 US THYROID 03/21/2025 US THYROID 06/23/2019 Future Test Test Name Order Date XR CHEST 2 VIEW PA & LAT 02/28/2025 Next Appt Details Provider Name:Jerome perez, 01/04/2026 01:45:00 PM, [address] [place] [address] Drive, [address], [place], [place], [id number], Insurance Providers Payer Name Payer Address Payer Phone Subscriber Number Group Number Insured Name Patient Relationship to Insured Coverage Start Date Coverage End Date MEDICARE [employer] [address] [place] [id number] Sophie Schulz Self - patient is the insured [facility] [address] [place] [phone] [id number] Sophie Schulz Self - patient is the insured Medical (General) History Medical History History ICD Code [facility] [phone] cardio dante valadez. 01/27/14 no [employer] & no mammos in years upper endo march 2018
== END ==
LOC: HO.CARD 14:54
PROVIDERS: PCP Internal Medicine
DX: I50.30 Unspecified diastolic (congestive) heart failure (principal)
CPT/HCPCS: 36415; 80048; 93306; Q9957

== ENCOUNTER → 2025-10-17 15:14 | Outpatient (BNV) | payer MEDICARE, OTHER, SELFPAY | PROVIDERS: PCP Internal Medicine; Visit Provider Internal Medicine Cardiovascular Disease | DX: I34.81 Nonrheumatic mitral (valve) annulus calcification (principal); I36.1 Nonrheumatic tricuspid (valve) insufficiency; I51.7 Cardiomegaly | CPT/HCPCS: 93306 ==